=== PATIENT | male | born 1955 | race Caucasian/White ===

== ENCOUNTER 2023-10-18 19:45 | Emergency (ER) | payer MEDICARE, MEDICAID, SELFPAY ==
[2023-10-18 20:00] VITALS: BP 100/50; PULSE 66; RESP 12; TEMP 36.5; O2SAT 92; BMI 25.4
--- NOTE | 2023-10-18 20:02 | ED.GENADULT ---
HPI - General Adult General Chief complaint: GI Bleed Stated complaint: ? blood in stool Time Seen by Provider: 10/18/23 21:06 Source: patient and family Mode of arrival: ambulatory Limitations: no limitations History of Present Illness HPI narrative: 68 yo male with PMH of anemia on Fe, GERD, BPH, hypothyroidism who had covid 3 weeks ago then after started with daily black stools 2 to 3 times a day - does not take thinners or aspirin only tylenol. he has not had GI bleedin past no prior endoscopy. He has never had melena. He has no pain, weakness, dizziness. He is on PPI daily. He states he is not staying and his spouse who is with him agrees. They want to go home and eat. I advised he stay for further workup but they decline. He agrees to rectal exam complaint: melena Onset (ago): week(s) (3) Location: buttocks Radiation: non-radiation Severity: mild Relieving factors: none Exacerbating factors: none Associated symptoms: denies other symptoms Treatments prior to arrival: none Related Data Previous Rx's Medication Instructions Recorded omeprazole 20 mg capsule,delayed 20 mg PO BID #60 caps 10/18/23 release Allergies Allergy/AdvReac Type Severity Reaction Status Date / Time No Known Allergies Allergy Verified 10/18/23 19:59 [No Known Allergies*] Review of Systems Review of Systems: Constitutional : No Fever, No Chills, No Fatigue ENT/Mouth : No sore throat, No Rhinorrhea Eyes: No Eye Pain, No Swelling, No Redness Cardiovascular : No Chest Pain, No SOB, No Dyspnea on Exertion Respiratory : No Cough, No Sputum Gastrointestinal : No Nausea, No Vomiting, No Diarrhea, No abdominal Pain, pos melena Genitourinary : No Dysuria, No Urinary Frequency, No Hematuria, Musculoskeletal : No joint pain, No Myalgias, No Joint Swelling Skin : No Skin Lesions, No rash Neuro : No Weakness, No Numbness, No Dizziness, no Headache Psych : No Anxiety/Panic, No Depression Heme/Lymph: No Bruising, No Bleeding,No Lymphadenopathy Endocrine : No Polyuria, No Polydipsia All other systems reviewed and are negative PMFSH Past Medical History Attestation statement: The following information was validated with the patient. Medical History Anemia BPH (benign prostatic hyperplasia) GERD (gastroesophageal reflux disease) Social History Social History Alcohol intake: never Smoked in Last 30 Days: Yes Use of substances other than those prescribed or required for medical reasons: No Advance Directives: No Advance Directives Information Provided: No Physical Exam ED Vital Signs: Vital Signs - 24 hr 10/18/23 20:00 10/18/23 20:58 Temperature 97.7 F Pulse Rate 66 53 Respiratory Rate 12 18 Blood Pressure 100/50 L 106/62 Pulse Oximetry 92 93 Oxygen Delivery Method Room Air Room Air BMI result Body Mass Index 25.4 Appearance: Alert. Oriented X3. No acute distress. Eyes: Pupils equal, round and reactive to light. ENT: Pharynx normal. Neck: Normal inspection. Neck supple. CVS: Normal heart rate and rhythm. Pulses normal. Respiratory: No respiratory distress. Breath sounds normal. Abdomen: Soft and nontender. Rectal: brown stool Skin: Skin warm and dry. Normal skin color. Normal skin turgor. Extremities: No lower extremity edema. No calf ttp Neuro: Oriented X 3. No motor deficit. No sensory deficit. Course Course Course Narrative: RME performed by Mariola Cardoso PA-C. Patient is a 68 year old assigned male at presenting to the emergency department with blood in his stool. Detailed physical exam and review of systems are deferred to the information security consultant. Labs ordered. Patient placed back in the waiting room pending room availability and results. Medical Decision Making Medical Decision Making [facility] Narrative: 68 yo male with PMH of anemia on Fe, GERD, BPH, hypothyroidism here with black stools at home but no other associated symptoms at this time will obtain labs, occult stool - he is refusing other work up answering questions appropriately he has benign abdominal exam refusing all other work up other than labs and guiac. Will increased PPI and refer to his GI doctor with precautions to return Differential Diagnosis Differential Diagnoses: The differential diagnosis associated with the presentation includes Fe cause, anemia, UGIB, PUD Admission/Observation Consideration of admission/observation: Escalation of care including admission/observation considered patient and spouse refuse Lab Data [facility] Lab Attestation statement: I reviewed the patient's lab results. 10/18/23 20:33 10/18/23 20:33 Labs: Lab Results 10/18/23 10/18/23 Range/Units 20:33 21:30 WBC 4.1 L (4.8-10.8) X10*3/uL RBC 4.05 L (4.60-5.80) X10*6/uL Hgb 12.4 L (14.0-18.0) g/dl Hct 35.2 L (42.0-52.0) % MCV 86.9 (80.0-98.0) fL MCH 30.6 (27.0-33.0) pg MCHC 35.2 (31.0-36.0) g/dl RDW 13.2 (11.0-16.0) % Plt Count 180 (160-400) X10*3/uL MPV 9.7 (9.4-12.4) fL Immature Gran % (Auto) 0.2 (0.0-0.4) % Neut % (Auto) 53.8 (45-73) % Lymph % (Auto) 32.5 (20-40) % Brooke % (Auto) 8.1 (2-11) % Eos % (Auto) 4.9 H (0-4) % Baso % (Auto) 0.5 (0-2) % Lymph # (Auto) 1.3 (1.2-4.9) X10*3/uL Brooke # (Auto) 0.3 (0.1-1.2) X10*3/uL Eos # (Auto) 0.2 (0.0-0.4) X10*3/uL Baso # (Auto) 0.0 (0.0-0.2) X10*3/uL Abs Immat Gran (auto) 0.01 (0.00-0.03) X10*3/uL Absolute Neuts (auto) 2.2 (2.0-8.3) x10*3/uL Absolute Nucleated RBC 0.000 (0.0-0.012) X10*3/uL Nucleated RBC % (auto) 0.0 (0.0-0.2) /100WBC PT 13.3 (11.1-13.3) SEC INR 1.1 (0.9-1.1) APTT 40.1 H (26.0-36.8) SEC Sodium 141 (135-145) mmol/L Potassium 3.5 (3.3-5.1) mmol/L Chloride 105 (96-108) mmol/L Carbon Dioxide 27 (22-29) mmol/L Anion Gap 13 (12-20) BUN 7 L (9-16) mg/dL Creatinine 0.57 (0.5-1.4) mg/dL Estim Creat Clear Calc 133.9 Estimated GFR > 60 Random Glucose 109 (60-115) mg/dL Calcium 9.1 (8.4-10.2) mg/dL Magnesium 2.0 (1.6-2.6) mg/dL Total Bilirubin 0.3 (0.0-1.0) mg/dL AST 13 (5-37) U/L ALT 8 (0-40) U/L Alkaline Phosphatase 85 (39-117) U/L Total Protein 7.0 (6.5-8.0) g/dL Albumin 3.8 (3.5-5.0) g/dL Stool Occult Blood NEGATIVE (NEGATIVE) Independent Historian Clinical information obtained from an independent historian. History obtained from or confirmed by: Spouse External Record Review External record reviewed: Outpatient record Prescription Management I considered prescription management with: Other Discharge Plan Discharge Clinical Impression: Melena Patient Disposition: Home, Self-Care Instructions: Melena (ED) Additional Instructions: your hemoglobin was 12.4 we have no baseline for you. at this time your stools tested negative for blood. it was advised you stay for further work up but you refused. return for dizziness, increased blood, pain, vomiting or any other concerns. NO ASPIRIN, MOTRIN, ALEVE, IBUPROFEN, NAPROSYN TYLENOL IS OKAY CALL YOUR DOCTOR SATURDAY AND YOU NEED ENDOSCOPY THROUGH GI SOON POSSIBLE, INCREASE OMEPRAZOLE TO TWICE A DAY Prescriptions: New omeprazole 20 mg capsule,delayed release(DR/EC) 20 mg PO BID Qty: 60 0RF
--- OUTSIDE RECORDS SUMMARY | 2023-10-18 20:33 | XMS_ITS | Continuity of Care Document ---
Author Name Unknown Organization [facility] Address [address] [place] [address]- Care Team Providers Care Puppy Sitter Name Role Phone Roberto CH, Efra Miramontes Primary Care Physician Encounter [facility] Date(s): 05/24/21 - 06/23/21 [facility] [address] [place] [address]- Allergies, Adverse Reactions, Alerts Substance Reaction Severity Status NKA Active Immunizations Given and Recorded Vaccine Date Status Refusal Reason tetanus/diphtheria/pertussis, acel(Tdap) 05/07/21 Given tetanus/diphtheria/pertussis, acel(Tdap) 1 03/05/11 Given SARS-CoV-2 (COVID-19) mRNA BNT-162b2 vac 12/04/20 Recorded SARS-CoV-2 (COVID-19) mRNA BNT-162b2 vac 11/13/20 Recorded influenza virus vaccine, inactivated 06/21/20 Give n influenza virus vaccine, inactivated 2 07/31/18 Gi raheem influenza virus vaccine, inactivated 07/05/16 Give n influenza virus vaccine, inactivated 3 08/01/15 Re corded influenza virus vaccine, inactivated 05/18/15 Nacho rded influenza virus vaccine, inactivated 4 08/13/12 Gi raheem influenza virus vaccine, inactivated 5 08/16/11 Gi raheem Influenza Virus Vaccine (oldterm) 06/08/19 Recorde d Fluarix (oldterm) 6 08/19/13 Given pneumococcal 23-valent vaccine 7 04/01/12 Given 1Admin Note: VIM 08/03/08 2Result Comment: [07/31/2018] [facility]# [id number] 3Result Comment: [08/26/2015] done at [facility] 4Admin Note: VIM 03/17/12 5Admin Note: VIM 04/10/11 6Admin Note: VIS GIVEN 04/10/13 7Admin Note: vis given dated 06/21/09 Medications donepezil 5 mg oral tablet 5 mg, 1, tablet, By Mouth, Daily, # 30 tablet, Refills 5, Tot. Refills 5, Maintenance, 06/02/21 14:20:00 EDT, Route to Pharmacy Electronically, [id number], Partial fill upon patient request if the prescription is for a schedule II opioid drug.... Start Date: 06/02/21 Status: Ordered fluticasone 50 mcg/inh nasal spray 2 sprays, Nares, Both, Daily, # 16 Gm, 5 Refills, Maintenance, 12/15/20 12:56:00 EDT, [place], [id number], Partial fill upon patient request if the prescription is for a schedule II opioid drug., 2 sprays Nares, Both Daily, 183, cm, 12/15/20 11:... Start Date: 12/15/20 Status: Ordered gabapentin 300 mg oral capsule 300 mg, 1, capsule, By Mouth, 2 times a day, # 60 capsule, Refills 5, Tot. Refills 5, Maintenance, 10/27/20 10:24:00 EST, Route to Pharmacy Electronically, [id number], Partial fill upon patient request if the prescription is for a schedule II... Start Date: 10/27/20 Status: Ordered Lantus Inj 0.1 mL = 10 units, Subcutaneous Injection, Daily at bedtime, 0 Refills, Maintenance, 05/09/21 9:03:00 EDT, In[place], Partial fill upon patient request if the prescription is for a schedule II opioiddrug. Start Date: 05/09/21 Status: Ordered levothyroxine 0.112 mg oral tablet 2 tablet = 224 mcg, By Mouth, Daily, # 60 tablet, 5 Refills, Maintenance, 10/27/20 10:22:00 EST, Tablet, [id number], 183, cm, 10/27/20 8:41:00 EST, Height, 119, kg, 09/23/20 17:06:00 EST, DryWeight Start Date: 10/27/20 Stop Date: 04/25/21 Status: Ordered Lidoderm 5% film 1 patch, Topically, Daily, # 30 patch, 0 Refills, Maintenance, 04/03/21 9:04:00 EDT, [facility]/pharmacy #[id number], Partial fill upon patient request if the prescription is for a schedule II opioid drug., 1 patch Topically Daily, 180, cm, 04/03/21 7:30:00 EDT, H... Start Date: 04/03/21 Status: Ordered lisinopril 20 mg oral tablet 20 mg, 1, tablet, By Mouth, Daily, # 30 tablet, Refills 0, Tot. Refills 0, Maintenance, 05/09/21 9:00:00 EDT, Route to Pharmacy Electronically, [facility]/pharmacy #[id number], Partial fill upon patient request if the prescription is for a schedule II opioid drug.... Start Date: 05/09/21 Status: Ordered nystatin topical [id number] u/gm powder See Instructions, apply to stump daily, # 30 Gm, 5 Refills, Maintenance, 12/15/20 12:56:00 EDT, Powder, [facility]/pharmacy #[id number], Partial fill upon patient request if the prescription is for a schedule II opioid drug., apply to stump daily, 183, cm, ... Start Date: 12/15/20 Status: Ordered omeprazole 20 mg oral enteric coated capsule 1 capsule = 20 mg, By Mouth, Daily, # 30 capsule, 5 Refills, Maintenance, 10/27/20 10:22:00 EST, ECCapsule, [facility]/pharmacy #[id number], 183, cm, 10/27/20 8:41:00 EST, Height, 119, kg, 09/23/20 17:06:00 EST,Dry Weight Start Date: 10/27/20 Status: Ordered Probiotic Formula By Mouth, Daily, 0 Refills, Maintenance, 01/19/21 15:29:00 EDT, Partial fill upon patient request if the prescription is for a schedule II opioid drug. Start Date: 01/19/21 Status: Ordered traZODone 50 mg oral tablet 50 mg, 1, tablet, By Mouth, 2 times a day, Refills 0, Maintenance, 01/19/21 15:28:00 EDT, Partial fill upon patient request if the prescription is for a schedule II opioid drug. Start Date: 01/19/21 Status: Ordered Trulicity Pen 1.5 mg/0.5 mL subcutaneous solution 0.5 mL = 1.5 mg, Subcutaneous Injection, Every week, # 2.5 mL, 0 Refills, Maintenance, 06/21/21 8:48:00 EDT, [place], [id number], Partial fill upon patient request if the prescription is fora schedule II opioid drug., 180, cm, 04/03/21 7:30:... Start Date: 06/21/21 Status: Ordered Problem List Condition Effective Dates Status Health Status Inform ant Diabetes mellitus type 2(Confirmed) Active Diabetic nephropathy(Confirmed) Active Dysphagia(Confirmed) Active Former smoker(Confirmed) Active Generalized anxiety disorder(Confirmed) Active Hypertension(Confirmed) Active Hypogonadism(Confirmed) 2010 Active Hypothyroidism(Confirmed) Active Urinary frequency(Confirmed) Active Local infection of wound(Confirmed) Active Moderate recurrent major depression(Confirmed) Active Hx of right BKA(Confirmed) Active Opioid dependence(Confirmed) Active Opioid dependence on agonist therapy(Confirmed) Active Osteoarthritis of right [place] ohumeral joint(Confirmed) 2 05/29/17 Active 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 2seen by ortho 10/04 and 01/02 Social History Social History Type Response Tobacco Other: 3 cigars brenden y. Sex Male
--- OUTSIDE RECORDS SUMMARY | 2023-10-18 20:33 | XMS_ITS | Continuity of Care Document ---
Author Name Unknown Organization [facility] Address [address] [place] [address]- Care Team Providers Care Layer Up Name Role Phone Roberto CH, Efra Miramontes Primary Care Physician Encounter [facility] Date(s): 12/06/22 - 01/05/23 [facility] [address] [place] [address]- Attending Physician: Bobby Sandoval Admitting Physician: AdmBobby mckeon Referring Physician: AdmtrBobby Allergies, Adverse Reactions, Alerts No Known Allergies Immunizations Given and Recorded Vaccine Date Status Refusal Reason influenza virus vaccine, inactivated 1 07/06/21 Gi raheem influenza virus vaccine, inactivated 06/21/20 Give n influenza virus vaccine, inactivated 2 07/31/18 Gi raheem influenza virus vaccine, inactivated 07/05/16 Give n influenza virus vaccine, inactivated 3 08/01/15 Re corded influenza virus vaccine, inactivated 05/18/15 Nacho rded influenza virus vaccine, inactivated 4 08/13/12 Gi raheem influenza virus vaccine, inactivated 5 08/16/11 Gi raheem zoster vaccine, inactivated 06/11/21 Recorded SARS-CoV-2 (COVID-19) mRNA BNT-162b2 vac 06/11/21 Recorded SARS-CoV-2 (COVID-19) mRNA BNT-162b2 vac 12/04/20 Recorded SARS-CoV-2 (COVID-19) mRNA BNT-162b2 vac 11/13/20 Recorded tetanus/diphtheria/pertussis, acel(Tdap) 05/07/21 Given tetanus/diphtheria/pertussis, acel(Tdap) 6 03/05/11 Given Influenza Virus Vaccine (oldterm) 06/08/19 Recorde d Fluarix (oldterm) 7 08/19/13 Given pneumococcal 23-valent vaccine 8 04/01/12 Given 1Result Comment: [facility]#[id number] 2Result Comment: [07/31/2018] [facility]# [id number] 3Result Comment: [08/26/2015] done at [email or web address] [facility] 4Admin Note: VIM 03/17/12 5Admin Note: VIM 04/10/11 6Admin Note: VIM 08/03/08 7Admin Note: VIS GIVEN 04/10/13 8Admin Note: vis given dated 06/21/09 Medications ARIPiprazole 5 mg oral tablet 5 mg, 1, tablet, By Mouth, Daily, # 90 tablet, Refills 1, Tot. Refills 1, Maintenance, 09/28/22 8:16:00 EST, Route to Pharmacy Electronically, [facility]/pharmacy #[id number], Partial fill upon patient request ifthe prescription is for a schedule II opioid drug.,... Start Date: 09/28/22 Stop Date: 03/27/23 Status: Ordered citalopram 40 mg oral tablet 40 mg, 1, tablet, By Mouth, Daily, Take with food., # 90 tablet, Refills 1, Tot. Refills 1, Maintenance, 09/28/22 8:16:00 EST, Route to Pharmacy Electronically, [facility]/pharmacy #[id number], 181.5, cm, 08/30/22 16:11:00 EST, Height, 105, kg, 09/26/21 3:23:00 ES... Start Date: 09/28/22 Stop Date: 03/27/23 Status: Ordered donepezil 10 mg oral tablet 10 mg, 1, tablet, By Mouth, Daily at bedtime, # 90 tablet, Refills 2, Tot. Refills 2, Maintenance, 10/11/22 12:01:00 EST, Route to Pharmacy Electronically, [facility]/pharmacy #[id number], Partial fill upon patient request if the prescription is for a schedule II... Start Date: 10/11/22 Stop Date: 07/08/23 Status: Ordered ferrous sulfate 325 mg oral enteric coated tablet 325 mg, By Mouth, Daily, Refills 3, Maintenance, 07/19/21 10:08:00 EDT, Partial fill upon patient request if the prescription is for a schedule II opioid drug. Start Date: 07/19/21 Status: Ordered fluticasone 50 mcg/inh nasal spray 2 sprays, Nares, Both, Daily in AM, 0 Refills, Maintenance, 07/14/21 14:22:00 EDT, [place], Partial fill upon patient request if the prescription is for a schedule II opioid drug. Start Date: 07/14/21 Status: Ordered folic acid 1 mg oral tablet 1 mg, 1, tablet, By Mouth, Daily, # 30 tablet, Refills 0, Maintenance, 07/13/21 22:11:00 EDT, Partial fill upon patient request if the prescription is for a schedule II opioid drug. Start Date: 07/13/21 Status: Ordered gabapentin 400 mg oral capsule 400 mg, 1, capsule, By Mouth, 2 times a day, # 60 capsule, Refills 1, Tot. Refills 1, Maintenance, 12/23/22 8:36:00 EDT, Route to Pharmacy Electronically, [facility]/pharmacy #[id number], Partial fill upon patient request if the prescription is for a schedule II o... Start Date: 12/23/22 Status: Ordered levothyroxine 0.112 mg oral tablet 2 tablet = 224 mcg, By Mouth, Daily, # 60 tablet, 2 Refills, Maintenance, 12/19/22 16:00:00 EDT, Tablet, [facility]/pharmacy #[id number], 181.5, cm, 10/26/22 11:39:00 EST, Height, 103, kg, 10/26/22 11:39:00 EST, Dry Weight Start Date: 12/19/22 Stop Date: 03/19/23 Status: Ordered melatonin 5 mg oral tablet 1 tablet = 5 mg, By Mouth, Daily at bedtime, PRN for insomnia, # 60 tablet, 0 Refills, Maintenance,07/13/21 22:12:00 EDT, Tablet, Partial fill upon patient request if the prescription is for a schedule II opioid drug. Start Date: 07/13/21 Status: Ordered nystatin topical [id number] u/gm powder See Instructions, apply to stump 3 x day, # 120 Gm, 5 Refills, Maintenance, 07/06/21 12:35:00 EDT, Powder, [facility]/pharmacy #[id number], Partial fill upon patient request if the prescription is for a schedule II opioid drug., apply to stump 3 x day, 180, cm,... Start Date: 07/06/21 Status: Ordered omeprazole 20 mg oral enteric coated capsule 1 capsule = 20 mg, By Mouth, Daily, # 30 capsule, 0 Refills, Maintenance, 12/19/22 16:00:00 EDT, ECCapsule, [id number], 181.5, cm, 10/26/22 11:39:00 EST, Height, 103, kg, 10/26/22 11:39:00 EST, Dry Weight Start Date: 12/19/22 Status: Ordered prazosin 2 mg oral capsule 2 capsule = 4 mg, By Mouth, Daily at bedtime, dose increase, # 180 capsule, 1 Refills, Maintenance,09/28/22 8:17:00 EST, Capsule, [id number], Partial fill upon patient request if the prescription is for a schedule II opioid drug., 181.5, cm,... Start Date: 09/28/22 Stop Date: 03/27/23 Status: Ordered ramelteon 8 mg oral tablet 1 tablet = 8 mg, By Mouth, Daily at bedtime, # 90 tablet, 1 Refills, Maintenance, 09/28/22 8:16:00 EST, Tablet, [id number], Partial fill upon patient request if the prescription is for a schedule II opioid drug., 181.5, cm, 08/30/22 16:11:00 E... Start Date: 09/28/22 Stop Date: 03/27/23 Status: Ordered Readi-Cat 2 oral suspension 450 mL = 9 Gm, By Mouth, 2 times a day, Please dispense two 450 mL bottles for a total dose that equals 900 mLs. Drink first bottle [address] and then drink second bottle [address] scan,# 2 each, 0 Refills, Maintenance, 10/26/22 12:01:00... Start Date: 10/26/22 Status: Ordered Suboxone 8 mg-2 mg Sublingual Film See Instructions, 1.5 films sublingual in AM, 1 film sublingual in PM [id number], # 75 film, 1 Refills, Maintenance, 12/18/22 8:06:00 EDT, [id number], 1.5 films sublingual in AM, 1 film sublingual in PM ; [id number], 181.5, cm, 10/26/22 11:39:... Start Date: 12/18/22 Status: Ordered tamsulosin 0.4 mg oral capsule 0.4 mg, 1, capsule, By Mouth, Daily, # 90 capsule, Refills 3, Tot. Refills 3, Maintenance, 12/20/2315:00:00 EDT, Route to Pharmacy Electronically, [facility]/pharmacy #[id number], Partial fill upon patient request if the prescription is for a schedule II opioid d... Start Date: 12/19/22 Status: Ordered Problem List Condition Confirmation Course Effective Dates Status H ealth Status Informant Alzheimer's dementia Confirmed Active Diabetes mellitus type 2 Confirmed Active Diabetic nephropathy Confirmed Active Dysphagia Confirmed Active Generalized anxiety disorder Confirmed Active Hypertension Confirmed Active Hypogonadism 1 Confirmed 2010 Active Hypothyroidism Confirmed Active Urinary frequency Confirmed Active Local infection of wound Confirmed Active Moderate recurrent major depression Confirmed Active Hx of right BKA Confirmed Active Obese class I Confirmed Active Opioid dependence Confirmed Active Opioid dependence on agonist therapy Confirmed Active Osteoarthritis of right glenohumeral joint 2 Confirmed 05/29/17 Active Pain in right leg, nonunion of ankle fusion Confirmed Active Seborrheic dermatitis Confirmed Active Tobacco dependence Confirmed Active 1Dx'd while on chronic opiate tx. 2seen by ortho 10/04 and 01/02 Social History Social History Type Response Tobacco Other: 3 cigars brenden y. Sex EKG study * Event Display: EKG Authored Date: * Event Display: EKG Authored Date: * Event Display: EKG Authored Date: Note * Event Display: Non [facility] Lab Results Authored Date: * Event Display: Non [facility] Lab Results Authored Date: * Event Display: CT Scan Shoulder, Non- [facility] Authored Date: * Event Display: Non [facility] Lab Results Authored Date: * Event Display: CT Scan Shoulder Authored Date: * Event Display: CT Scan Shoulder Authored Date: * Event Display: CT Scan Knee Authored Date: Patient Care team information Care Team Personnel Name: Alka Lee RN Position: [facility] RN Member Role: Primary Care Nurse Name: Jaleel Lo RN Position: [facility] RN Member Role: Primary Care Nurse Name: Ivy Smith RN Position: [facility] RN Member Role: Primary Care Nurse Name: Efra Mejia MD Position: [facility] Primary Care Physician Member Role: PCP Address: Address: [address] [place] [id number] Name: Devorah Johnson RN Position: [facility] RN Member Role: Primary Care Nurse Name: Dustin Chavez RN Position: [facility] RN Member Role: Primary Care Nurse Name: Litzy Weinberg RN Position: [facility] RN Member Role: Primary Care Nurse Name: Melanie Garay Position: [facility] RN Member Role: Primary Care Nurse Name: Michelle Buckley Position: [facility] RN Member Role: Primary Care Nurse Name: Saundra Gonzalez Position: [facility] RN Member Role: Primary Care Nurse Name: Sofía Moreno RN Position: [facility] RN Member Role: Primary Care Nurse Name: Sary Tong RN Position: [facility] RN Member Role: Primary Care Nurse Name: Sophia Lomas RN Position: [facility] RN Member Role: Primary Care Nurse Name: Danielito Woo RN Position: [facility] Finger Lift Operator Member Role: Primary Care Nurse Care Team Related Persons Name: TINY STEPHENS Address: home [address], [place] Name: FERNIE CUMMINS Address: [address] [place] [place], [place] Name: CUMMINSBEANTINY Address: home [address], [place]
--- OUTSIDE RECORDS SUMMARY | 2023-10-18 20:34 | XMS_ITS | Continuity of Care Document ---
Author Name Unknown Organization [facility] Address [address] [place] [id number]- Care Team Providers Care Video Specialist Name Role Phone Roberto CH, Efra Miramontes Primary Care Physician [place] [facility] [place] - 07/26/23 [facility] [address] [place] [id number] Attending Physician: Juve Lopez MD Admitting Physician: Juve oLpez MD Allergies, Adverse Reactions, Alerts No Known Allergies Immunizations Given and Recorded Vaccine Date Status Refusal Reason influenza virus vaccine, inactivated 07/11/23 Give n influenza virus vaccine, inactivated 1 07/06/21 Gi raheem influenza virus vaccine, inactivated 06/21/20 Give n influenza virus vaccine, inactivated 2 07/31/18 Gi raheem influenza virus vaccine, inactivated 07/05/16 Give n influenza virus vaccine, inactivated 3 08/01/15 Re corded influenza virus vaccine, inactivated 05/18/15 Nacho rded influenza virus vaccine, inactivated 4 08/13/12 Gi raheem influenza virus vaccine, inactivated 5 08/16/11 Gi raheem SARS-CoV-2 mRNA ([id number]) vax 04/27/22 Recorded zoster vaccine, inactivated 06/11/21 Recorded SARS-CoV-2 (COVID-19) mRNA BNT-162b2 vac 06/11/21 Recorded SARS-CoV-2 (COVID-19) mRNA BNT-162b2 vac 12/04/20 Recorded SARS-CoV-2 (COVID-19) mRNA BNT-162b2 vac 11/13/20 Recorded tetanus/diphtheria/pertussis, acel(Tdap) 05/07/21 Given tetanus/diphtheria/pertussis, acel(Tdap) 6 03/05/11 Given Influenza Virus Vaccine (oldterm) 06/08/19 Recorde d Fluarix (oldterm) 7 08/19/13 Given pneumococcal 23-valent vaccine 8 04/01/12 Given 1Result Comment: [facility]#[id number] 2Result Comment: [07/31/2018] [facility]# [id number] 3Result Comment: [08/26/2015] done at [facility] 4Admin Note: VIM 03/17/12 5Admin Note: VIM 04/10/11 6Admin Note: VIM 08/03/08 7Admin Note: VIS GIVEN 04/10/13 8Admin Note: vis given dated 06/21/09 Medications ARIPiprazole 5 mg oral tablet 5 mg, 1, tablet, By Mouth, Daily, # 90 tablet, Refills 1, Tot. Refills 1, Maintenance, 03/01/23 10:12:00 EDT, Route to Pharmacy Electronically, [facility]/pharmacy #[id number], Partial fill upon patient request if the prescription is for a schedule II opioid drug.... Start Date: 03/01/23 Stop Date: 08/28/23 Status: Ordered Boost or equivalent protein shake Boost or equivalent protein shake, See Instructions, # 28 each, Refills 3, Tot. Refills 3, Maintenance, twice daily for weight loss / malnutrition, 07/11/23 12:56:00 EDT, Supply, 181.5, cm, 07/11/23 11:00:00 EDT, Height, 103, kg, 10/26/22 11:39:00 EST... Start Date: 07/11/23 Status: Ordered ciclopirox 0.77% topical cream See Instructions, Apply thin layer to rash twice per day. Rub in well, # 90 Gm, 0 Refills, Acute 08/03/23 9:00:00 EST, 07/03/23 11:29:00 EDT, Cream, [facility]/pharmacy #[id number], Partial fill upon patient request if the prescription is for a schedule II opioid... Start Date: 07/03/23 Stop Date: 08/03/23 Status: Ordered citalopram 40 mg oral tablet 40 mg, 1, tablet, By Mouth, Daily, Take with food., # 90 tablet, Refills 1, Tot. Refills 1, Maintenance, 06/25/23 10:14:00 EDT, Route to Pharmacy Electronically, [facility]/pharmacy #[id number], 181.5, cm, 06/06/23 16:27:00 EDT, Height, 103, kg, 10/26/22 11:39:00... Start Date: 06/25/23 Stop Date: 12/22/23 Status: Ordered donepezil 10 mg oral tablet 1, tablet, By Mouth, Daily at bedtime, # 90 tablet, Refills 2, Maintenance, 07/26/23 16:19:00 EST, Route to Pharmacy Electronically, [facility] STORE [id number], 181.5, cm, 07/11/23 11:00:00 EDT, Height, 103, kg, 10/26/22 11:39:00 EST, Dry Weight Start Date: 07/26/23 Status: Ordered famotidine 40 mg oral tablet 1 tablet = 40 mg, By Mouth, Daily at bedtime, # 30 tablet, 0 Refills, Maintenance, 07/11/23 13:01:00 EDT, Tablet, [facility]/pharmacy #[id number], Partial fill upon patient request if the prescription is for a schedule II opioid drug., 181.5, cm, 07/11/23 11:00:00... Start Date: 07/11/23 Status: Ordered ferrous sulfate 325 mg oral enteric coated tablet 325 mg, By Mouth, Daily, Refills 3, Maintenance, 07/19/21 10:08:00 EDT, Partial fill upon patient request if the prescription is for a schedule II opioid drug. Start Date: 07/19/21 Status: Ordered fluticasone 50 mcg/inh nasal spray 2 sprays, Nares, Both, Daily, # 16 Gm, 0 Refills, Maintenance, 07/11/23 13:02:00 EDT, [place], [facility]/pharmacy #[id number], Partial fill upon patient request if the prescription is for a schedule II opioid drug., 2 sprays Nares, Both Daily, 181.5, cm, 07/11/23 1... Start Date: 07/11/23 Status: Ordered fluticasone 50 mcg/inh nasal spray 2 sprays, Nares, Both, Daily in AM, 0 Refills, Maintenance, 07/14/21 14:22:00 EDT, [place], Partial fill upon patient request if the [...] capsule, Refills 5, Tot. Refills 5, Maintenance, 03/27/23 17:30:00 EDT, Route to Pharmacy Electronically, [facility]/pharmacy #[id number], override needed for lost prescription, thanks., 181.5, cm, 03/07/23 10:11:0... Start Date: 03/27/23 Status: Ordered levothyroxine 0.112 mg oral tablet 2 tablet = 224 mcg, By Mouth, Daily, for 30 days, # 60 tablet, 0 Refills, Hard Stop 08/09/23 12:54:00 EST, 07/10/23 12:54:00 EDT, Tablet, [facility]/pharmacy #[id number], 181.5, cm, 06/06/23 16:27:00 EDT, Height,103, kg, 10/26/22 11:39:00 EST, Dry Weight Start Date: 07/10/23 Stop Date: 08/09/23 Status: Ordered levothyroxine 0.2 mg oral tablet 1 tablet = 200 mcg, By Mouth, Daily, # 30 tablet, 5 Refills, Maintenance, 07/14/23 18:02:00 EDT, Tablet, [facility]/pharmacy #[id number], dose reduction, 181.5, cm, 07/11/23 11:00:00 EDT, Height, 103, kg, 10/26/22 11:39:00 EST, Dry Weight Start Date: 07/14/23 Status: Ordered melatonin 5 mg oral tablet 1 tablet = 5 mg, By Mouth, Daily at bedtime, PRN for insomnia, # 60 tablet, 0 Refills, Maintenance,07/13/21 22:12:00 EDT, Tablet, Partial fill upon patient request if the prescription is for a schedule II opioid drug. Start Date: 07/13/21 Status: Ordered nystatin topical 224110 u/gm powder See Instructions, apply to stump 3 x day, # 120 Gm, 5 Refills, Maintenance, 04/23/23 15:43:00 EDT, Powder, [facility]/pharmacy #[id number], Partial fill upon patient request if the prescription is for a schedule II opioid drug., apply to stump 3 x day, 181.5, cm... Start Date: 04/23/23 Status: Ordered nystatin topical 653559 u/gm powder See Instructions, apply to stump 3 x day, # 120 Gm, 5 Refills, Maintenance, 07/06/21 12:35:00 EDT, Powder, [facility]acy [id number], Partial fill upon patient request if the prescription is for a schedule II opioid drug., apply to stump 3 x day, 180, cm,... Start Date: 07/06/21 Status: Ordered omeprazole 20 mg oral enteric coated capsule 1 capsule = 20 mg, By Mouth, Daily, # 30 capsule, 5 Refills, Maintenance, 01/30/23 13:42:00 EDT, ECCapsule, [facility]pharmacy [id number], 181.5, cm, 10/26/22 11:39:00 EST, Height, 103, kg, 10/26/22 11:39:00 EST, Dry Weight Start Date: 01/30/23 Status: Ordered prazosin 2 mg oral capsule 1 capsule = 2 mg, By Mouth, Daily at bedtime, dose reduction, # 90 capsule, 1 Refills, Maintenance,06/25/23 10:14:00 EDT, Caps[place], [facility]acy [id number], Partial fill upon patient request if the prescription is for a schedule II opioid drug., 181.5, cm,... Start Date: 06/25/23 Stop Date: 12/22/23 Status: Ordered ramelteon 8 mg oral tablet 1 tablet = 8 mg, By Mouth, Daily at bedtime, # 90 tablet, 1 Refills, Maintenance, 06/25/23 10:14:00EDT, Tablet, [id number], Partial fill upon patient request if the prescription is for a schedule II opioid drug., 181.5, cm, 06/06/23 16:27:00... Start Date: 06/25/23 Stop Date: 12/22/23 Status: Ordered Readi-Cat 2 oral suspension 450 [...] sublingual in AM, 1 film sublingual in PM, # 75 film, 0 Refills, Maintenance, 06/25/23 10:13:00 EDT, [facility]/pharmacy #[id number], [id number], 1.5 films sublingual in AM, 1 film sublingual in PM, 181.5, cm, 06/06/23 16:27:00 EDT, [place]... Start Date: 06/25/23 Status: Ordered tamsulosin 0.4 mg oral capsule 0.4 mg, 1, capsule, By Mouth, Daily, # 90 capsule, Refills 3, Tot. Refills 3, Maintenance, 12/20/2315:00:00 EDT, Route to Pharmacy Electronically, [facility]/pharmacy #[id number], Partial fill upon patient request if [...] Active Hx of right BKA Confirmed Active Opioid dependence Confirmed Active Opioid dependence on agonist therapy Confirmed Active Osteoarthritis of right glenohumeral joint 2 Confirmed 05/29/17 Active Pain in right leg, nonunion of ankle fusion Confirmed Active Parkinson's disease (disorder) Confirmed Active Seborrheic dermatitis Confirmed Active Secondary parkinsonism (disorder) Confirmed Active Tobacco dependence Confirmed Active 1Dx'd while on chronic opiate tx. 2seen by ortho 10/04 and 01/02 Social History Social History Type Response Tobacco Other: does not smok e cigarettes but vapes. Sex Patient Care team information Care Team Personnel Name: .Ted CHA, Cayla Wong: [facility] ED RN W/OE and Tasks Member Role: Primary Care Nurse Name: Alka Lee RN Position: [facility] SN RN Member Role: Primary Care Nurse Name: Jaleel Lo RN Position: [facility] RN Member Role: Primary Care Nurse Name: Ivy Smith RN Position: [facility] RN Member Role: Primary Care Nurse Name: Efra Mejia MD Position: [facility] Physician - Primary Care Member Role: PCP Address: Address: [address] [place] [id number] Name: Devorah Johnson RN Position: [facility] RN Member Role: Primary Care Nurse Name: Dustin Chavez RN Position: [facility] RN Member Role: Primary Care Nurse Name: Litzy Weinberg RN Position: [facility] RN Member Role: Primary Care Nurse Name: Melanie Garay Position: [facility] RN Member Role: Primary Care Nurse Name: Yoselyn Patrick RN Position: [facility] RN Member Role: Primary Care Nurse Name: Michelle Akbar [place] Position: [facility] RN Member Role: Primary Care Nurse Name: Saundra Gonzalez Position: [facility] RN Member Role: Primary Care Nurse Name: Sofía Moreno RN Position: [facility] RN Member Role: Primary Care Nurse Name: Sary Tong RN Position: [facility] RN Member Role: Primary Care Nurse Name: Danielito Woo RN Position: [facility] Hospital Sieve Grader Tender Member Role: Primary Care Nurse Care Team Related Persons Name: TINY STEPHENS Address: home [address] [place], [place] Name: FERNIE CUMMINS Address: home [address], [place] Name: TINY CUMMINS Address: home [address], [place]
--- OUTSIDE RECORDS SUMMARY | 2023-10-18 20:34 | XMS_ITS | Continuity of Care Document ---
Author Name Unknown Organization [facility] Address [address] [place] [address]- Care Team Providers Care Landscape Maintenance Internship Name Role Phone Roberto CH, Efra Miramontes Primary Care Physician [phone] [place] [facility] [place] [facility] [address] [place] [address]- Attending Physician: Admlinda, Bobby Admitting Physician: AdmtrBobby Referring Physician: Admtr, Ar8 Allergies, Adverse Reactions, Alerts Substance Reaction Severity [...] 1Admin Note: VIM 08/03/08 2Result Comment: [07/31/2018] [facility]# [id number] 3Result Comment: [08/26/2015] [facility] 4Admin Note: VIM 03/17/12 5Admin Note: VIM [...] Gm, 5 Refills, Maintenance, 12/15/20 12:56:00 EDT, [place], [id number], Partial fill upon patient request [...] patch, 0 Refills, Maintenance, 04/03/21 9:04:00 EDT, [facility]/pharmacy #[id number], Partial fill upon patient request if the prescription is for a schedule II opioid drug., 1 patch Topically Daily, 180, cm, 04/03/21 7:30:00 EDT, H... Start Date: 04/03/21 Status: Ordered lisinopril 20 mg oral tablet 20 mg, 1, tablet, By Mouth, Daily, # 30 tablet, Refills 0, Tot. Refills 0, Maintenance, 05/09/21 9:00:00 EDT, Route to Pharmacy Electronically, [facility]/pharmacy #[id number], Partial fill upon patient request if the prescription is for a schedule II opioid drug.... Start Date: 05/09/21 Status: Ordered nystatin topical 606277 u/gm powder See Instructions, apply to stump daily, # 30 Gm, 5 Refills, Maintenance, 12/15/20 12:56:00 EDT, Powder, [facility]/pharmacy #[id number], Partial fill upon patient request if the prescription is for a schedule II opioid drug., apply to stump daily, 183, cm, ... Start Date: 12/15/20 Status: Ordered omeprazole 20 mg oral enteric coated capsule 1 capsule = 20 mg, By Mouth, Daily, # 30 capsule, 5 Refills, Maintenance, 10/27/20 10:22:00 EST, ECCapsule, [facility]/pharmacy #[id number], 183, cm, 10/27/20 8:41:00 EST, Height, [...] Subcutaneous Injection, Every week, # 2.5 mL, 5 Refills, Maintenance, 12/15/20 12:38:00 EDT, Solution, [facility]/pharmacy #[id number], Partial fill upon patient request if the prescription is for a schedule II opioid drug., 183, cm, 12/15/20 11:2... Start Date: 12/15/20 Status: Ordered Problem List Condition Effective Dates [...]
--- OUTSIDE RECORDS SUMMARY | 2023-10-18 20:34 | XMS_ITS | Continuity of Care Document ---
Author Name Unknown Organization [facility] Address [address] [place] [address]- Care Team Providers Care Principal Archaeologist Name Role Phone Roberto CH, Efra Miramontes Primary Care Physician Encounter [facility] Date(s): 04/04/22 - 05/04/22 [facility] [address] [place], [place] [address] Allergies, Adverse Reactions, Alerts No Known Allergies [...] 23-valent vaccine 8 04/01/12 Given 1Result Comment: [facility]#[id number] 2Result Comment: [07/31/2018] [facility]# [id number] 3Result Comment: [08/26/2015] done at [facility] 4Admin Note: VIM 03/17/12 5Admin Note: VIM 04/10/11 6Admin Note: VIM 08/03/08 7Admin Note: VIS GIVEN 04/10/13 8Admin Note: vis given dated 06/21/09 Medications donepezil 5 mg oral tablet 1, tablet, By Mouth, Daily, # 90 tablet, Refills 1, Route to Pharmacy Electronically, [facility] STORE [id number], 181.5, cm, 09/28/21 12:39:00 EST, Height, 105, kg, 09/26/21 3:23:00 EST, Dry Weight Start Date: 11/13/21 Status: Ordered ferrous sulfate 325 mg oral enteric coated tablet 325 mg, By Mouth, Daily, Refills 3, Maintenance, 07/19/21 10:08:00 EDT, Partial fill upon patient request if the prescription is for a schedule II opioid drug. Start Date: 07/19/21 Status: Ordered fluticasone 50 mcg/inh nasal spray 2 sprays, Nares, Both, Daily in AM, 0 Refills, Maintenance, 07/14/21 14:22:00 EDT, [place], Partial fill upon patient request if the [...] times a day, # 60 capsule, Refills 2, Tot. Refills 2, Maintenance, 03/22/22 15:36:00 EDT, Route to Pharmacy Electronically, [facility]/pharmacy #[id number], Partial fill upon patient request if the prescription is for a schedule II... Start Date: 03/22/22 Status: Ordered Iodosorb 0.9% topical gel See Instructions, Continue wound care with iodosorb gel and 2x2 dressing daily to small wound Betadine pain to incision, # 1 each, 0 Refills, Maintenance, 09/28/21 18:43:00 EST, [facility]/pharmacy #[id number], Partial fill upon patient request if the prescripti... Start Date: 09/28/21 Status: Ordered levothyroxine 0.112 mg oral tablet 2 tablet = 224 mcg, By Mouth, Daily, # 60 tablet, 2 Refills, Maintenance, 03/22/22 13:10:00 EDT, Tablet, [facility]/pharmacy #[id number], 181.5, cm, 09/28/21 12:39:00 EST, Height, 105, kg, 09/26/21 3:23:00 EST, Dry Weight Start Date: 03/22/22 Stop Date: 06/20/22 Status: Ordered melatonin 5 mg oral tablet 1 tablet = 5 mg, By Mouth, Daily at bedtime, PRN for insomnia, # 60 tablet, 0 Refills, Maintenance,07/13/21 22:12:00 EDT, Tablet, Partial fill upon patient request if the prescription is for a schedule II opioid drug. Start Date: 07/13/21 Status: Ordered nystatin topical 960362 u/gm powder See Instructions, apply to stump 3 x day, # 120 Gm, 5 Refills, Maintenance, 07/06/21 12:35:00 EDT, Powder, [facility]/pharmacy #[id number], Partial fill upon patient request if the prescription is for a schedule II opioid drug., apply to stump 3 x day, 180, cm,... Start Date: 07/06/21 Status: Ordered omeprazole 20 mg oral enteric coated capsule 1 capsule = 20 mg, By Mouth, Daily, # 30 capsule, 2 Refills, Maintenance, 03/22/22 13:10:00 EDT, ECCapsule, [facility]/pharmacy #[id number], 181.5, cm, 09/28/21 12:39:00 EST, Height, 105, kg, 09/26/21 3:23:00 EST, Dry Weight Start Date: 03/22/22 Status: Ordered tamsulosin 0.4 mg oral capsule 0.4 mg, 1, capsule, By Mouth, Daily, # 90 capsule, Refills 3, Tot. Refills 3, Maintenance, 07/06/2111:55:00 EDT, Route to Pharmacy Electronically, [facility]/pharmacy #[id number], Partial fill upon patient request if the prescription is for a schedule II opioid d... Start Date: 07/06/21 Status: Ordered Trulicity Pen 0.75 mg/0.5 mL subcutaneous solution 0.5 mL = 0.75 mg, Subcutaneous Injection, Every week, rotate injection sites, # 2 mL, 5 Refills, Maintenance, 10/05/21 11:20:00 EST, Solution, [facility]/pharmacy #[id number], Partial fill upon patient request ifthe prescription is for a schedule II opioid drug.,... Start Date: 10/05/21 Status: Ordered Problem List Condition Effective Dates Status Health Status Inform ant Alzheimer's dementia(Confirmed) Active Diabetes mellitus type 2(Confirmed) Active Diabetic nephropathy(Confirmed) Active Dysphagia(Confirmed) Active Generalized anxiety disorder(Confirmed) Active Hypertension(Confirmed) Active Hypogonadism(Confirmed) 2010 Active Hypothyroidism(Confirmed) Active Urinary frequency(Confirmed) Active Local infection of wound(Confirmed) Active Moderate recurrent major depression(Confirmed) Active Hx of right BKA(Confirmed) Active Opioid dependence(Confirmed) Active Opioid dependence on agonist therapy(Confirmed) Active Osteoarthritis of right [place] ohumeral joint(Confirmed) 2 05/29/17 Active Pain in right leg, nonunion of ankle fusion(Confirmed) Active Seborrheic dermatitis(Confirmed) Active Severe obesity(Confirmed) Active Tobacco dependence(Confirmed) Active 1Dx'd while on chronic opiate tx. 2seen by ortho 10/04 and 01/02 Social History Social History Type Response Tobacco Other: 3 cigars brenden y. Sex
--- OUTSIDE RECORDS SUMMARY | 2023-10-18 20:34 | XMS_ITS | Continuity of Care Document ---
Author Name Unknown Organization [facility] Address [address] [place] [address]- Care Team Providers Care Incendiaries Supervisor Name Role Phone Efra Mejia MD Primary Care Physician Encounter [facility] [place] Date(s): 04/23/23 - 04/30/23 [facility] [address] [place] [address]- Attending Physician: Efra Mejia MD Allergies, Adverse Reactions, Alerts No Known Allergies Immunizations Given and Recorded Vaccine Date Status Refusal Reason SARS-CoV-2 mRNA ([id number]) vax 04/27/22 Recorded influenza virus vaccine, inactivated 1 07/06/21 Gi [...] 23-valent vaccine 8 04/01/12 Given 1Result Comment: [facility]#[id number] 2Result Comment: [07/31/2018] [facility]# [id number] 3Result Comment: [08/26/2015] [facility] at [facility] 4Admin Note: VIM 03/17/12 5Admin Note: VIM 04/10/11 6Admin Note: VIM 08/03/08 7Admin Note: VIS GIVEN 04/10/13 8Admin Note: vis given dated 06/21/09 Medications ARIPiprazole 5 mg oral tablet 5 mg, 1, tablet, By Mouth, Daily, # 90 tablet, Refills 1, Tot. Refills 1, Maintenance, 03/01/23 10:12:00 EDT, Route to Pharmacy Electronically, [facility]/pharmacy #[id number], Partial fill upon patient request if the prescription is for a schedule II opioid drug.... Start Date: 03/01/23 Stop Date: 08/28/23 Status: Ordered citalopram 40 mg oral tablet 40 mg, 1, tablet, By Mouth, Daily, Take with food., # 90 tablet, Refills 1, Tot. Refills 1, Maintenance, 03/01/23 10:12:00 EDT, Route to Pharmacy Electronically, [id number], 181.5, cm, 02/05/23 12:41:00 EDT, Height, 103, kg, 10/26/22 11:39:00... Start Date: 03/01/23 Stop Date: 08/28/23 Status: Ordered donepezil 10 mg oral tablet 10 mg, 1, tablet, By Mouth, Daily at bedtime, # 90 tablet, Refills 2, Tot. Refills 2, Maintenance, 10/11/22 12:01:00 EST, Route to Pharmacy Electronically, [facility]/pharmacy #[id number], Partial fill upon patient request if the prescription is for a schedule II... Start Date: 10/11/22 Stop Date: 07/08/23 Status: Ordered ferrous sulfate 325 mg oral enteric coated tablet 325 mg, By Mouth, Daily, Refills 3, Maintenance, 07/19/21 10:08:00 EDT, Partial fill upon patient request if the prescription is for a schedule II opioid drug. Start Date: 07/19/21 Status: Ordered fluconazole 200 mg oral tablet 1 tablet = 200 mg, By Mouth, Daily, for 14 days, # 14 tablet, 0 Refills, Acute 05/07/23 15:44:00 EDT, 04/23/23 15:44:00 EDT, Tablet, [facility]/pharmacy #[id number], dose change, 181.5, cm, 04/23/23 15:02:00 EDT,Height, 103, kg, 10/26/22 11:39:00 EST, Dry Weight Start Date: 04/23/23 Stop Date: 05/07/23 Status: Ordered fluticasone 50 mcg/inh nasal spray 2 sprays, Nares, Both, Daily in AM, 0 Refills, Maintenance, 07/14/21 14:22:00 EDT, [place], Partial fill upon patient request if the [...] 03/27/23 17:30:00 EDT, Route to Pharmacy Electronically, [facility]/pharmacy #[id number], override needed for lost prescription, thanks., 181.5, cm, 03/07/23 10:11:0... Start Date: 03/27/23 Status: Ordered levothyroxine 0.112 mg oral tablet 2 tablet = 224 mcg, By Mouth, Daily, # 60 tablet, 2 Refills, Maintenance, 03/27/23 12:47:00 EDT, Tablet, [facility]/pharmacy #[id number], 181.5, cm, 03/07/23 10:11:00 EDT, Height, 103, kg, 10/26/22 11:39:00 EST, Dry Weight Start Date: 03/27/23 Stop Date: 06/25/23 Status: Ordered melatonin 5 mg oral tablet 1 tablet = 5 mg, By Mouth, Daily at bedtime, PRN for insomnia, # 60 tablet, 0 Refills, Maintenance,07/13/21 22:12:00 EDT, Tablet, Partial fill upon patient request if the prescription is for a schedule II opioid drug. Start Date: 07/13/21 Status: Ordered mupirocin 2% topical ointment 1 application, Topically, 2 times a day, for 14 days, apply to open wound on R stump, # 30 Gm, 0 Refills, Acute 05/07/23 15:44:00 EDT, 04/23/23 15:44:00 EDT, Ointment, [id number], Partial fill upon patient request if the prescription is for a... Start Date: 04/23/23 Stop Date: 05/07/23 Status: Ordered nystatin topical 968890 u/gm powder See Instructions, apply to stump 3 x day, # 120 Gm, 5 Refills, Maintenance, 04/23/23 15:43:00 EDT, Powder, [id number], Partial fill upon patient request if the prescription is for a schedule II opioid drug., apply to stump 3 x day, 181.5, cm... Start Date: 04/23/23 Status: Ordered nystatin topical 920118 u/gm powder See Instructions, apply to stump [...] dose reduction, # 90 capsule, 1 Refills, Maintenance,03/01/23 10:12:00 EDT, Capsule, [facility]/pharmacy #[id number], Partial fill upon patient request if the prescription is for a schedule II opioid drug., 181.5, cm,... Start Date: 03/01/23 Stop Date: 08/28/23 Status: Ordered ramelteon 8 mg oral tablet 1 tablet = 8 mg, By Mouth, Daily at bedtime, # 90 tablet, 1 Refills, Maintenance, 03/01/23 10:13:00EDT, Tablet, [facility]/pharmacy #[id number], Partial fill upon patient request if the prescription is for a schedule II opioid drug., 181.5, cm, 02/05/23 12:41:00... Start Date: 03/01/23 Stop Date: 08/28/23 Status: Ordered Readi-Cat 2 oral suspension 450 [...] in AM, 1 film sublingual in PM [id number], # 75 film, 1 Refills, Maintenance, 04/26/23 8:11:00 EDT, [id number], 1.5 films sublingual in AM, 1 film sublingual in PM ; [id number], 181.5, cm, 04/23/23 15:02:... Start Date: 04/26/23 Status: Ordered tamsulosin 0.4 mg oral capsule 0.4 mg, 1, capsule, By Mouth, Daily, # 90 capsule, Refills 3, Tot. Refills 3, Maintenance, 12/20/2315:00:00 EDT, Route to Pharmacy Electronically, [facility]/pharmacy #[id number], Partial fill upon patient request if [...] tx. 2seen by ortho 10/04 and 01/02 Vital Signs Most recent to oldest [Reference Range]: 1 Height 181.5 cm (04/23/23 3:02 PM) Oxygen Saturation [94-100 %] 96 % (04/23/23 3:02 PM) Pulse Rate [55-90 bpm] 78 bpm (04/23/23 3:02 PM) Blood Pressure [90-138/55-84 mm Hg] 92/5 5mm Hg (04/23/23 3:02 PM) Temperature [96.8-100.4 DegF] 98.6 DegF (04/23/23 3:02 PM) Blood pressure sites Arm, left (04/23/23 3:02 PM) Temperature Route Temporal (04/23/23 3:02 PM) Social History Social History Type Response Tobacco Other: 3 cigars brenden y. Sex Note * Humaira Quinteros: PERFORM, SIGN, VERIFY Event Display: Patient Education/Instruction Authored Date: [id number] [facility] *[facility] Clinical Summary Name NIHARIKA CUMMINS Age 67 Years 1955 PCP Roberto CH, Efra Miramontes PCP Visit Date 04/23/2023 14:50:00 Additional Instructions: Scheduled Appointments?? Future Appointments ?*[facility] ?[address] ?[place],??[place],??[address] ?Phone:??--?Fax:??-- ?Appt. Date:??06/06/2023?4:30 PM ?Scheduled Provider:??Matias Zhou MD Follow-Up Instructions ?? Diagnosis Other complications of amputation stump; Candidiasis of skin and nail Medications: Please continue your medications until treatment is completed or stopped by your provider. Discuss any questions related to medications with your provider. New Medications [facility]/pharmacy #[id number], [address] [place] [id number], [phone] Fluconazole (fluconazole 200 mg oral tablet) 1 tab(s) Oral Daily for 14 Days. Refills: 0. Next Dose: Mupirocin Topical (mupirocin 2% topical ointment) 1 celestina Topically twice a day for 14 Days. apply toopen wound on R stump. Refills: 0. Next Dose: Medications to Continue Taking That Have Changed [facility]/pharmacy #[id number], [address] [place] [id number], [phone] - Nystatin Topical (nystatin topical 187307 u/gm powder) apply to stump 3 x day. Refills: 5. Next Dose: These medications were not printed or sent to your pharmacy - Nystatin Topical (nystatin topical 941004 u/gm powder) apply to stump 3 x day. Refills: 5. Next Dose: Medications to Continue with No Changes These medications were not printed or sent to your pharmacy Aripiprazole (ARIPiprazole 5 mg oral tablet) 1 tab(s) Oral Daily for 90 Days. Refills: 1. Next Dose: Barium Sulfate (Readi-Cat 2 oral suspension) 450 Milliliter Oral twice a day. Please dispense two 450 mL bottles for a total dose that equals 900 mLs. Drink first bottle [address] and then drink second bottle [address] scan. Refills: 0. Next Dose: Buprenorphine-Naloxone (Suboxone 8 mg-2 mg Sublingual Film) 1.5 films sublingual in AM, 1 film sublingual in PM [id number]. Refills: 1. Next Dose: Citalopram (citalopram 40 mg oral tablet) 1 tab(s) Oral Daily for 90 Days. Take with food.. Refills: 1. Next Dose: Donepezil (donepezil 10 mg oral tablet) 1 tab(s) Oral Daily at Bedtime for 90 Days. Refills: 2. Next Dose: Ferrous Sulfate (ferrous sulfate 325 mg oral enteric coated tablet) 325 Milligram Oral Daily. Next Dose: Fluticasone Nasal (fluticasone 50 mcg/inh nasal spray) 2 spray(s) Nares, Both Daily in the morning. Next Dose: Folic Acid (folic acid 1 mg oral tablet) 1 tab(s) Oral Daily. Next Dose: Gabapentin (gabapentin 400 mg oral capsule) 1 capsule Oral twice a day. Refills: 5. Next Dose: Levothyroxine (levothyroxine 0.112 mg oral tablet) 2 tab(s) Oral Daily for 30 Days. Refills: 2. Next Dose: Melatonin (melatonin 5 mg oral tablet) 1 tab(s) Oral Daily at Bedtime as needed for insomnia. Next Dose: Omeprazole (omeprazole 20 mg oral enteric coated capsule) 1 capsule Oral Daily. Refills: 5. Next Dose: Prazosin (prazosin 2 mg oral capsule) 1 capsule Oral Daily at Bedtime for 90 Days. dose reduction. Refills: 1. Next Dose: Ramelteon (ramelteon 8 mg oral tablet) 1 tab(s) Oral Daily at Bedtime for 90 Days. Refills: 1. Next Dose: Tamsulosin (tamsulosin 0.4 mg oral capsule) 1 capsule Oral Daily. Refills: 3. Next Dose: Allergy Info:?? NKA Medications Given This Visit Future Orders ?No future orders Vital Signs Height 181.5 cm Weight BMI Blood Pressure 92 mm Hg/55 mm Hg Temperature 98.6 DegF Pulse Rate 78 bpm Respiratory Rate 02 Sat Mode of Delivery 96 %/ You can now view a summary of your hospital visit from the comfort of your home through a free online portal called [employer]. [employer] is a website that allows you to securely view your medical information including discharge summary, medications and follow-up visits. ??You can alsosend a secure electronic message to your doctor???s office to request appointments, renew medications or just ask a question. You can enroll at [email or web address] or register during your next office visit. Disclaimer:?? The information provided is of a general nature and is intended to be used in conjunction with the recommendations and advice of your health care practitioner. ??Every effort has been made to ensure that the information provided is accurate and complete at the time it is provided to you however, as your needs change, or, as new ??information becomes available, different or additional instructions may be required. If you have questions, please consult with your primary care provider or pharmacist, as appropriate. ??This information is not intended to serve as substitution for assessment and evaluation by a qualified health care provider. If you do not have a primary care provider, you may find a [facility] provider by calling [facility] [employer] Link at [phone]. For information about the plan of care including goals and instructions for your diagnosis, please see the patient education orders section of this document. Patient Education Materials?? The content of this educational material or handout may have been modified, supplemented, or adapted from its original content and format to support your individualized medical care. Patient Care team information Care Team Personnel Name: .Cayla Jean RN Position: [facility] ED RN W/OE and Tasks Member Role: Primary Care Nurse Name: Alka Lee RN Position: [facility] RN Member Role: Primary Care Nurse Name: Jaleel Lo RN Position: [facility] RN Member Role: Primary Care Nurse Name: Ivy Smith RN Position: [facility] RN Member Role: Primary Care Nurse Name: Efra Mejia MD Position: [facility] Physician - Primary Care Member Role: PCP Address: Address: [address] [place] [address] Name: Devorah Johnson RN Position: [facility] RN Member Role: Primary Care Nurse Name: Dustin Chavez RN Position: [facility] RN Member Role: Primary Care Nurse Name: Litzy Weinberg RN Position: [facility] RN Member Role: Primary Care Nurse Name: Melanie Garay Position: [facility] RN Member Role: Primary Care Nurse Name: Michelle Akbar [place] Position: [facility] RN Member Role: Primary Care Nurse Name: Saundra Gonzalez Position: [facility] RN Member Role: Primary Care Nurse Name: Sofía Moreno RN Position: [facility] RN Member Role: Primary Care Nurse Name: Sary Tong RN Position: [facility] RN Member Role: Primary Care Nurse Name: Sophia Lomas RN Position: [facility] RN Member Role: Primary Care Nurse Name: Danielito Woo RN Position: [facility] Sustainability Officer Member Role: Primary Care Nurse Care Team Related Persons Name: PHILIPTINY CORRAL Address: [address] [place] [address] Name: FERNIE CUMMINS Address: [address] [place] [address] Name: TINY CUMMINS Address: [address] [place] [address]
--- OUTSIDE RECORDS SUMMARY | 2023-10-18 20:34 | XMS_ITS | Continuity of Care Document ---
Author Name Unknown Organization [facility] Address [address] [place] [address]- Care Team Providers Care Print Production Associate Name Role Phone Efra Mejia MD Primary Care Physician [phone] Encounter [facility] [place] Date(s): 11/17/19 - 11/24/19 [facility] [address] [place] [address]- [facility] Attending Physician: Efra Mejia MD Allergies, Adverse Reactions, Alerts Substance Reaction Severity Status NKA Active Immunizations Given and Recorded Vaccine Date Status Refusal Reason Influenza Virus Vaccine (oldterm) 06/08/19 Recorde d influenza virus vaccine, inactivated 1 07/31/18 Gi raheem influenza virus vaccine, inactivated 07/05/16 Give n influenza virus vaccine, inactivated 2 08/01/15 Re corded influenza virus vaccine, inactivated 3 08/13/12 Gi raheem influenza virus vaccine, inactivated 4 08/16/11 Gi raheem Fluarix (oldterm) 5 08/19/13 Given pneumococcal 23-valent vaccine 6 04/01/12 Given tetanus/diphtheria/pertussis, acel(Tdap) 7 03/05/11 Given 1Result Comment: [07/31/2018] [facility]# [id number] 2Result Comment: [08/26/2015] done at [facility] 3Admin Note: VIM 03/17/12 4Admin Note: VIM 04/10/11 5Admin Note: VIS GIVEN 04/10/13 6Admin Note: vis given dated 06/21/09 7Admin Note: VIM 08/03/08 Medications aspirin 81 mg oral delayed release tablet 81 mg, 1, tablet, By Mouth, Daily, # 90 tablet, Refills 0, Maintenance, 01/20/18 13:33:45 EDT Start Date: 01/20/18 Status: Ordered Compression Stockings See Instructions, # 2 each, Maintenance, surgical, calf length 20-30 mm Hg, 11/12/19 10:03:00 EST, Compound Start Date: 11/12/19 Status: Ordered diclofenac 1% topical gel 1 application, Topically, 4 times a day, not to exceed 8 grams/day/single joint of upper extremities, # 100 Gm, 1 Refills, Maintenance, 11/12/19 10:02:00 EST, Gel, [id number], 180.3, cm, 11/12/19 8:43:00 EST, Height, 120.7, kg, 11/03/19 13:31:... Start Date: 11/12/19 Status: Ordered fexofenadine 180 mg oral tablet 1 tablet = 180 mg, By Mouth, Daily, # 30 tablet, 5 Refills, Maintenance, 12/11/18 10:53:56 EDT, Tablet Start Date: 12/11/18 Status: Ordered fluticasone 50 mcg/inh nasal spray 2 sprays, Nares, Both, Daily, # 1 each, 11 Refills, Maintenance, 02/27/18 16:08:09 EDT, 2 sprays Nares, Both Daily Start Date: 02/27/18 Status: Ordered folic acid 1 mg oral tablet 1 mg, 1, tablet, By Mouth, 2 times a day, Take with food, # 60 tablet, Refills 5, Tot. Refills 5, Maintenance, 07/02/16 16:06:12, Route to Pharmacy Electronically, [id number], [facility] #[facility] Start Date: 07/02/16 Stop Date: 12/29/16 Status: Ordered Freestyle Lancets See Instructions, # 100 each, Refills 5, Tot. Refills 5, Maintenance, Test BID for hyperglycemia; DM uncontrolled ( E11.65 and R73.9), 08/01/18 9:34:58 EST, Compound Start Date: 08/01/18 Stop Date: 01/28/19 Status: Ordered Freestyle Lite Monitor See Instructions, # 1 each, Maintenance, Test BID for hyperglycemia; DM uncontrolled ( E11.65 and R73.9), 08/01/18 9:35:53 EST, Compound Start Date: 08/01/18 Status: Ordered Freestyle Lite Test Strips See Instructions, # 100 each, Refills 5, Tot. Refills 5, Maintenance, Test BID for hyperglycemia; uncontrolled DM ( R73.9 and E11.65), 08/01/18 9:33:06 EST, Compound Start Date: 08/01/18 Stop Date: 01/28/19 Status: Ordered gabapentin 600 mg oral tablet 1 tablet = 600 mg, By Mouth, 3 times a day, # 90 tablet, 5 Refills, Maintenance, 10/22/19 10:55:00 EST, Tablet, [facility]/pharmacy #[id number], 180.3, cm, 10/22/19 10:14:00 EST, Height, 118.5, kg, 05/12/19 10:33:00 EDT, Dry Weight Start Date: 10/22/19 Status: Ordered ibuprofen 800 mg oral tablet 800 mg, 1, tablet, By Mouth, Every 8 hours, PRN, # 90 tablet, Refills 0, Tot. Refills 0, Maintenance, as needed for pain, 04/10/19 17:13:55 EDT, Route to Pharmacy Electronically, [id number], [facility] #[facility] Start Date: 04/10/19 Stop Date: 05/10/19 Status: Ordered Insulin Syringe, BD Ultra-Fine 0.3 cc 31 G x 8 mm (5/16in) See Instructions, # 100 each, Refills 1, Tot. Refills 1, Maintenance, as directed for type 2 diabetes., 05/21/19 12:51:57 EDT, Compound Start Date: 05/21/19 Status: Ordered Lantus Solostar Pen 100 units/mL subcutaneous solution = 20 units, Subcutaneous Injection, 2 times a day, # 15 mL, 5 Refills, Maintenance, 11/17/19 8:28:00 EST, Solution, [facility]/pharmacy #[id number], 180.3, cm, 11/12/19 15:07:00 EST, Height, 120.7, kg, 11/03/19 13:31:00 EST, Dry Weight Start Date: 11/17/19 Status: Ordered levothyroxine 0.112 mg oral tablet 2 tablet = 224 mcg, By Mouth, Daily, # 60 tablet, 5 Refills, Maintenance, 06/18/19 9:13:12 EDT, Tablet Start Date: 06/18/19 Stop Date: 12/15/19 Status: Ordered lisinopril 20 mg oral tablet 20 mg, 1, tablet, By Mouth, Daily, # 90 tablet, Refills 3, Tot. Refills 3, Maintenance, 01/20/18 13:36:03 EDT, Route to Pharmacy Electronically, [id number], [facility] #36 Start Date: 01/20/18 Stop Date: 01/15/19 Status: Ordered metFORMIN 1000 mg oral tablet 1 tablet = 1,000 mg, By Mouth, 2 times a day, # 180 tablet, 3 Refills, Maintenance, 01/20/18 13:36:05 EDT, Tablet Start Date: 01/20/18 Stop Date: 01/15/19 Status: Ordered MiraLax oral powder for reconstitution = 17 Gm, By Mouth, Daily, dissolve in water before taking, # 527 Gm, 1 Refills, Maintenance, 07/04/17 14:05:15, REC Powder, 17 Gm By Mouth Daily,Instr:dissolve in water before taking Start Date: 07/04/17 Status: Ordered nadolol 20 mg oral tablet 20 mg, 1, tablet, By Mouth, Daily, # 90 tablet, Refills 1, Tot. Refills 1, Maintenance, 11/12/19 15:56:00 EST, Route to Pharmacy Electronically, [facility]/pharmacy #[id number], 180.3, cm, 11/12/19 15:07:00 EST, Height, 120.7, kg, 11/03/19 13:31:00 EST, Dry Weight Start Date: 11/12/19 Status: Ordered Novolin N human recombinant 100 u/ml subcutaneous injection = 25 units, Subcutaneous Injection, 2 times a day, # 3 mL, 5 Refills, Maintenance, 06/18/19 9:14:04EDT, Suspension Start Date: 06/18/19 Stop Date: 12/15/19 Status: Ordered NovoLOG FlexPen 100 units/mL subcutaneous solution See Instructions, 25 units AM and 30 units afternoon Subcutaneous Injection, # 15 mL, 5 Refills, Maintenance, 07/24/19 17:52:05 EST, Solution Start Date: 07/24/19 Status: Ordered NuLYTELY with Flavor Packs oral powder for reconstitution 240 mL, By Mouth, Every 10 minutes, # 1 each, 0 Refills, Maintenance, 06/19/19 7:23:25 EDT, REC Powder, test date 10/16/19, 240 mL By Mouth Every 10 minutes Start Date: 06/19/19 Status: Ordered omeprazole 40 mg oral enteric coated capsule 1 capsule = 40 mg, By Mouth, Daily, # 30 capsule, 0 Refills, Maintenance, 08/27/19 11:54:11 EST, ECCapsule, 180, cm, 08/27/19 11:23:28 EST, Height, 118.5, kg, 05/12/19 10:33:34 EDT, Dry Weight Start Date: 08/27/19 Status: Ordered Pen Casa, 29 G x 12.7 mm BD Ultra Fine See Instructions, # 1 box, Refills 3, Tot. Refills 3, Maintenance, use with NOvolog Pen injection twice daily, 06/18/19 9:42:43 EDT, Compound Start Date: 06/18/19 Status: Ordered pioglitazone 45 mg oral tablet 1 tablet = 45 mg, By Mouth, Daily, # 90 tablet, 3 Refills, Maintenance, 01/20/18 13:36:04 EDT, Tablet Start Date: 01/20/18 Stop Date: 01/15/19 Status: Ordered triamcinolone 0.5% topical cream 1 application, Topically, 2 times a day, 1/4 gm to affected area apply a thin film, # 20 Gm, 3 Refills, Maintenance, 05/22/18 9:51:39 EDT, Cream, 1 application Topically 2 times a day,Instr:1/4 gm toaffected area; apply a thin film Start Date: 05/22/18 Status: Ordered Problem List Condition Effective Dates Status Health Status Inform ant Diabetes mellitus type 2(Confirmed) Active Diabetic nephropathy(Confirmed) Active Dysphagia(Confirmed) Active Former smoker(Confirmed) Active Generalized anxiety disorder(Confirmed) Active Hypertension(Confirmed) Active Hypogonadism(Confirmed) 2010 Active Hypothyroidism(Confirmed) Active Local infection of wound(Confirmed) Active Moderate [...]
--- OUTSIDE RECORDS SUMMARY | 2023-10-18 20:34 | XMS_ITS | Continuity of Care Document ---
Author Name Unknown Organization [facility] Address [address] [place] [address]- Care Team Providers Care Supervisor Cytology Name Role Phone Efra Mejia MD Primary Care Physician Encounter [facility] Date(s): 04/03/21 - 04/03/[address] [address]- Encounter Diagnosis Rib pain(Final) - 04/03/21 Discharge Disposition: A-D/C Home Attending Physician: Barry Cortes MD Admitting Physician: Barry Cortes MD Referring Physician: Not on Staff, Referring MD Allergies, Adverse Reactions, Alerts Substance Reaction Severity Status NKA Active Immunizations Given and Recorded Vaccine Date Status Refusal Reason SARS-CoV-2 (COVID-19) mRNA BNT-162b2 vac 12/04/20 Recorded SARS-CoV-2 (COVID-19) mRNA BNT-162b2 vac 11/13/20 Recorded influenza virus vaccine, inactivated 06/21/20 Give n influenza virus vaccine, inactivated 1 07/31/18 Gi raheem influenza virus vaccine, inactivated 07/05/16 Give n influenza virus vaccine, inactivated 2 08/01/15 Re corded influenza virus vaccine, inactivated 05/18/15 Nacho rded influenza virus vaccine, inactivated 3 08/13/12 Gi raheem influenza virus vaccine, inactivated 4 08/16/11 Gi raheem Influenza Virus Vaccine (oldterm) 06/08/19 Recorde d Fluarix (oldterm) 5 08/19/13 Given pneumococcal 23-valent vaccine 6 04/01/12 Given tetanus/diphtheria/pertussis, acel(Tdap) 7 03/05/11 Given 1Result Comment: [07/31/2018] [facility]# [id number] 2Result Comment: [08/26/2015] done at [facility] 3Admin Note: VIM 03/17/12 4Admin Note: VIM 04/10/11 5Admin Note: VIS GIVEN 04/10/13 6Admin Note: vis given dated 06/21/09 7Admin Note: VIM 08/03/08 Medications Compression Stockings See Instructions, # 2 each, Maintenance, surgical, calf length 20-30 mm Hg, 11/12/19 10:03:00 EST, Compound Start Date: 11/12/19 Status: Ordered fluticasone 50 mcg/inh nasal spray 2 sprays, Nares, Both, Daily, # 16 Gm, 5 Refills, Maintenance, 12/15/20 12:56:00 EDT, [place], [id number], Partial fill upon patient request if the prescription is for a schedule II opioid drug., 2 sprays Nares, Both Daily, 183, cm, 12/15/20 11:... Start Date: 12/15/20 Status: Ordered Freestyle Lancets See Instructions, # 100 each, Refills 5, Tot. Refills 5, Maintenance, Test BID for hyperglycemia; DM uncontrolled ( E11.65 and R73.9), 05/20/20 7:43:00 EDT, Compound, 180.3, cm, 05/06/20 16:07:00 EDT, Height, 120.7, kg, 11/03/19 13:31:00 EST, Dry Weight Start Date: 05/20/20 Stop Date: 11/16/20 Status: Ordered Freestyle Lite Monitor See Instructions, # 1 each, Maintenance, Test BID for hyperglycemia; DM uncontrolled ( E11.65 and R73.9), 08/01/18 9:35:53 EST, Compound Start Date: 08/01/18 Status: Ordered Freestyle Lite Test Strips See Instructions, # 100 each, Refills 5, Tot. Refills 5, Maintenance, Test BID for hyperglycemia; uncontrolled DM ( R73.9 and E11.65), 05/20/20 7:43:00 EDT, Compound, 180.3, cm, 05/06/20 16:07:00 EDT, Height, 120.7, kg, 11/03/19 13:31:00 EST, Dry Weight Start Date: 05/20/20 Stop Date: 11/16/20 Status: Ordered gabapentin 300 mg oral capsule 300 mg, 1, capsule, By Mouth, 2 times a day, # 60 capsule, Refills 5, Tot. Refills 5, Maintenance, 10/27/20 10:24:00 EST, [id number] Partial fill upon patient request if the prescription is for a schedule II... Start Date: 10/27/20 Status: Ordered Insulin Syringe, BD Ultra-Fine 0.3 cc 31 G x 8 mm (5/16in) See Instructions, # 100 each, Refills 1, Tot. Refills 1, Maintenance, as directed for type 2 diabetes., 05/21/19 12:51:57 EDT, Compound Start Date: 05/21/19 Status: Ordered Lantus Solostar Pen 100 units/mL subcutaneous solution = 40 units, Subcutaneous Injection, 2 times a day, # 15 mL, 5 Refills, Maintenance, 10/27/20 10:22:00 EST, Solution, [facility]/pharmacy #[id number], 183, cm, 10/27/20 8:41:00 EST, Height, 119, kg, 09/23/20 17:06:00 EST, Dry Weight Start Date: 10/27/20 Status: Ordered levothyroxine 0.112 mg oral tablet 2 tablet = 224 mcg, By Mouth, Daily, # 60 tablet, 5 Refills, Maintenance, 10/27/20 10:22:00 EST, Tablet, [facility]/pharmacy #[id number], 183, cm, 10/27/20 8:41:00 EST, Height, 119, kg, 09/23/20 17:06:00 EST, DryWeight Start Date: 10/27/20 Stop Date: 04/25/21 Status: Ordered Lidoderm 5% film 1 patch, Topically, Daily, # 30 patch, 0 Refills, Maintenance, 04/03/21 9:04:00 EDT, [facility]/pharmacy #[id number], Partial fill upon patient request if the prescription is for a schedule II opioid drug., 1 patch Topically Daily, 180, cm, 04/03/21 7:30:00 EDT, H... Start Date: 04/03/21 Status: Ordered lisinopril 20 mg oral tablet 40 mg, 2, tablet, By Mouth, Daily, # 60 tablet, Refills 5, Tot. Refills 5, Maintenance, 10/27/20 10:22:00 EST, Route to Pharmacy Electronically, [facility]/pharmacy #[id number], Partial fill upon patient request if the prescription is for a schedule II opioid drug... Start Date: 10/27/20 Status: Ordered Melatonin 5 mg oral tablet 1 tablet = 5 mg, By Mouth, Daily at bedtime, # 30 tablet, 5 Refills, Maintenance, 12/15/20 12:56:00EDT, Tablet, [facility]/pharmacy #[id number], Partial fill upon patient request if the prescription is for a schedule II opioid drug., 183, cm, 12/15/20 11:23:00 ED... Start Date: 12/15/20 Status: Ordered MorPHINE Inj 4 mg, Injection, IV Push Slowly, Every 30 minutes for 2 doses/times, Hold for: SBP <90, *or* SpO2 <90, *or* Resp rate <10, PRN for Pain , Severe, Pain >2/10, STAT, 04/03/21 6:56:00 EDT, Stop date Limited # of times Start Date: 04/03/21 Stop Date: 04/03/21 Status: Discontinued nystatin topical 854570 u/gm powder See Instructions, apply to stump daily, # 30 Gm, 5 Refills, Maintenance, 12/15/20 12:56:00 EDT, Powder, [facility]/pharmacy #[id number], Partial fill upon patient request if the prescription is for a schedule II opioid drug., apply to stump daily, 183, cm, ... Start Date: 12/15/20 Status: Ordered omeprazole 20 mg oral enteric coated capsule 1 capsule = 20 mg, By Mouth, Daily, # 30 capsule, 5 Refills, Maintenance, 10/27/20 10:22:00 EST, ECCapsule, [id number], 183, cm, 10/27/20 8:41:00 EST, Height, 119, kg, 09/23/20 17:06:00 EST,Dry Weight Start Date: 10/27/20 Status: Ordered Pen [place], 29 G x 12.7 mm BD Ultra Fine See Instructions, # 1 box, Refills 3, Tot. Refills 3, Maintenance, use with NOvolog Pen injection twice daily, 06/18/19 9:42:43 EDT, Compound Start Date: 06/18/19 Status: Ordered Probiotic Formula By Mouth, Daily, 0 Refills, Maintenance, 01/19/21 15:29:00 EDT, Partial fill upon patient request if the prescription is for a schedule II opioid drug. Start Date: 01/19/21 Status: Ordered tamsulosin 0.4 mg oral capsule 0.4 mg, 1, capsule, By Mouth, Daily, # 30 capsule, Refills 11, Tot. Refills 11, Maintenance, 12/15/20 12:56:00 EDT, Route to Pharmacy Electronically, [facility]/pharmacy #[id number], 183, cm, 12/15/20 11:23:00 EDT, Height, 119, kg, 09/23/20 17:06:00 EST, Dry Weight Start Date: 12/15/20 Status: Ordered traZODone 50 mg oral tablet [...] 5 Refills, Maintenance, 12/15/20 12:38:00 EDT, Solution, [facility]/pharmacy #[id number], Partial fill upon patient request if the prescription is for a schedule II opioid drug., 183, cm, 12/15/20 11:2... Start Date: 12/15/20 Status: Ordered Walker See Instructions, # 1 each, Maintenance, as needed for gait difficulty, 06/23/20 14:57:00 EDT, Supply Start Date: 06/23/20 Status: Ordered Problem List Condition Effective Dates [...] Most recent to oldest [Reference Range]: 1 2 3 Height 180 cm (04/03/21 7:30 AM) 180 cm (04/03/21 5:13 AM) Weight 105 kg (04/03/21 7:30 AM) 105 kg (04/03/21 5:13 AM) Oxygen Saturation [94-100 %] 99 % (04/03/21 7:30 AM) 95 % (04/03/21 5:13 AM) Pulse Rate [55-90 bpm] 66 bpm (04/03/21 7:30 AM) 63 bpm (04/03/21 5:13 AM) Body Mass Index [18.5-24.99] 32.41 *>HHI* (04/03/21 7:30 AM) Blood Pressure [90-138/55-84 mm Hg] 149/67mm Hg *H* (04/03/21 7:30 AM) 107/65mm Hg (04/03/21 5:13 AM) Respiratory Rate [16-30 br/min] 18 br/min (04/03/21 7:53 AM) 22 br/min (04/03/21 7:30 AM) 20 br/min (04/03/21 7:23 AM) Temperature [96.8-100.4 DegF] 97.8 DegF (04/03/21 5:13 AM) Mode of Delivery (Oxygen) Room air (04/03/21 7:30 AM) Room air (04/03/21 5:13 AM) Blood pressure sites Arm, right (04/03/21 7:30 AM) Temperature Route Oral (04/03/21 5:13 AM) Dry Weight 105 kg (04/03/21 7:30 AM) 105 kg (04/03/21 5:13 AM) Social History Social History Type Response Tobacco Other: 3 cigars brenden y. Sex Male
--- OUTSIDE RECORDS SUMMARY | 2023-10-18 20:34 | XMS_ITS | Continuity of Care Document ---
Author Name Unknown Organization [facility] Address [address] [place] [address]- Care Team Providers Care Cdl Program Coordinator Name Role Phone Roberto CH, Efra Miramontes Primary Care Physician Encounter [facility] Date(s): 01/24/21 - 02/23/21 [facility] [address] [place] [address]- Attending Physician: Admlinda, Bobby Admitting Physician: AdmtrBobby [...] acel(Tdap) 7 03/05/11 Given 1Result Comment: [07/31/2018] [facility]# [id number] 2Result Comment: [08/26/2015] done at [facility] 3Admin Note: VIM 03/17/12 4Admin Note: VIM 04/10/11 5Admin Note: VIS GIVEN 04/10/13 6Admin Note: vis given dated 06/21/09 7Admin Note: VIM 08/03/08 Medications albuterol CFC free 90 mcg/inh inhalation aerosol 1, puffs, Inhalation, 4 times a day, PRN, # 18 Gm, Refills 0, Tot. Refills 0, Maintenance, 12/02/2009:56:00 EDT, Aerosol, Route to Pharmacy Electronically, [id number], [facility]/pharmacy #[id number], 180.3, cm, 11/12/19 15:07:00 EST, He... Start Date: 12/03/19 Status: Ordered aspirin 81 mg oral delayed release tablet [...] Gm, 5 Refills, Maintenance, 12/15/20 12:56:00 EDT, [place], [facility]/pharmacy #[id number], Partial fill upon patient request if the prescription is for a schedule II opioid drug., 2 sprays Nares, Both Daily, 183, cm, 12/15/20 11:... Start Date: 12/15/20 Status: Ordered folic acid 1 mg oral tablet 1 mg, 1, tablet, By Mouth, 2 times a day, Take with food, # 60 tablet, Refills 5, Tot. Refills 5, Maintenance, 07/02/16 16:06:12, Route to Pharmacy Electronically, [id number], [facility] Start Date: [...] 10/27/20 10:24:00 EST, Route to Pharmacy Electronically, [facility]/pharmacy #[id number], Partial fill upon patient request [...] 5 Refills, Maintenance, 10/27/20 10:22:00 EST, Solution, [facility]/pharmacy #[id number], 183, cm, 10/27/20 8:41:00 EST, Height, 119, kg, 09/23/20 17:06:00 EST, Dry Weight Start Date: 10/27/20 Status: Ordered levothyroxine 0.112 mg oral tablet 2 tablet = 224 mcg, By Mouth, Daily, # 60 tablet, 5 Refills, Maintenance, 10/27/20 10:22:00 EST, Tablet, [facility]/pharmacy #[id number], 183, cm, 10/27/20 8:41:00 EST, Height, 119, kg, 09/23/20 17:06:00 EST, DryWeight Start Date: 10/27/20 Stop Date: 04/25/21 Status: Ordered lisinopril 20 mg oral tablet 40 mg, 2, tablet, By Mouth, Daily, # 60 tablet, Refills 5, Tot. Refills 5, Maintenance, 10/27/20 10:22:00 EST, Route to Pharmacy Electronically, [facility]/pharmacy #[id number], Partial fill upon patient request if the prescription is for a schedule II opioid drug... Start Date: 10/27/20 Status: Ordered Melatonin 5 mg oral tablet 1 tablet = 5 mg, By Mouth, Daily at bedtime, # 30 tablet, 5 Refills, Maintenance, 12/15/20 12:56:00EDT, Tablet, [facility]/pharmacy #[id number], Partial fill upon patient request if the prescription is for a schedule II opioid drug., 183, cm, 12/15/20 11:23:00 ED... Start Date: 12/15/20 Status: Ordered MiraLax oral powder for reconstitution = 17 Gm, By Mouth, Daily, dissolve in water before taking, # 527 Gm, 5 Refills, Maintenance, 10/27/20 10:23:00 EST, REC Powder, [id number], 17 Gm By Mouth Daily,Instr:dissolve in water beforetaking, 183, cm, 10/27/20 8:41:00 EST, Height, 119,... Start Date: 10/27/20 Status: Ordered nystatin topical 794249 u/gm powder See Instructions, apply to stump daily, # 30 Gm, 5 Refills, Maintenance, 12/15/20 12:56:00 EDT, Powder, [facility]/pharmacy #[id number], Partial fill upon patient request if the prescription is for a schedule II opioid drug., apply to [facility] daily, 183, cm, ... Start Date: 12/15/20 Status: Ordered omeprazole 20 mg oral enteric coated capsule 1 capsule = 20 mg, By Mouth, Daily, # 30 capsule, 5 Refills, Maintenance, 10/27/20 10:22:00 EST, ECCapsule, [facility]/pharmacy #[id number], 183, cm, 10/27/20 8:41:00 EST, Height, 119, kg, 09/23/20 17:06:00 EST,Dry Weight Start Date: 10/27/20 Status: Ordered Pen [place], 29 G x 12.7 mm BD Ultra [...] 12/15/20 12:56:00 EDT, Route to Pharmacy Electronically, [facility]/pharmacy #[id number], 183, cm, 12/15/20 11:23:00 EDT, Height, [...] 5 Refills, Maintenance, 12/15/20 12:38:00 EDT, Solution, [facility]/pharmacy #[id number], Partial fill upon patient request [...]
--- OUTSIDE RECORDS SUMMARY | 2023-10-18 20:34 | XMS_ITS | Continuity of Care Document ---
Author Name Unknown Organization [facility] Address [address] [place] [address]- Care Team Providers Care Reinsurance Claims Analyst Name Role Phone Roberto CH, Efra Miramontes Primary Care Physician Encounter [facility] Date(s): 11/08/20 - 12/08/20 [facility] [address] [place] [address]- Allergies, Adverse Reactions, Alerts Substance Reaction Severity Status NKA Active Immunizations Given and Recorded Vaccine Date Status Refusal Reason influenza virus vaccine, inactivated 06/21/20 Give n [...] acel(Tdap) 7 03/05/11 Given 1Result Comment: [07/31/2018] [facility]# [id number] 2Result Comment: [08/26/2015] done at [facility] 3Admin Note: VIM 03/17/12 4Admin Note: VIM 04/10/11 5Admin Note: VIS GIVEN 04/10/13 6Admin Note: vis given dated 06/21/09 7Admin Note: VIM 08/03/08 Medications albuterol CFC free 90 mcg/inh inhalation aerosol 1, puffs, Inhalation, 4 times a day, PRN, # 18 Gm, Refills 0, Tot. Refills 0, Maintenance, 12/02/2009:56:00 EDT, Aerosol, Route to Pharmacy Electronically, [id number], [facility]/pharmacy #[id number], 180.3, cm, 11/12/19 15:07:00 EST, He... Start Date: 12/03/19 Status: Ordered aspirin 81 mg oral delayed release tablet 81 mg, 1, tablet, By Mouth, Daily, # 90 tablet, Refills 0, Maintenance, 01/20/18 13:33:45 EDT Start Date: 01/20/18 Status: Ordered buprenorphine-naloxone 8 mg-2 mg sublingual film See Instructions, 1.5 tabs in AM and 1 tab at night Sublingual, 0 Refills, Maintenance, 07/10/20 12:48:00 EDT, Film Start Date: 07/10/20 Status: Ordered Compression Stockings See Instructions, # 2 each, Maintenance, surgical, calf length 20-30 mm Hg, 11/12/19 10:03:00 EST, Compound Start Date: 11/12/19 Status: Ordered folic acid 1 mg oral tablet 1 mg, 1, tablet, By Mouth, 2 times a day, Take with food, # 60 tablet, Refills 5, Tot. Refills 5, Maintenance, 07/02/16 16:06:12, Route to Pharmacy Electronically, [id number], [facility] #[facility] Start Date: [...] hyperglycemia; DM uncontrolled ( E11.65 and R73.9), 11/16/18 9:35:53 EST, Compound Start Date: 08/01/18 Status: [...] 10/27/20 10:24:00 EST, Route to Pharmacy Electronically, [facility]/pharmacy #[id number], Partial fill upon patient request if the prescription is for a schedule II... Start Date: 10/27/20 Status: Ordered Insulin Syringe, BD Ultra-Fine 0.3 cc 31 G x 8 mm (516in) See Instructions, # 100 each, Refills 1, Tot. Refills 1, Maintenance, as directed for type 2 diabetes., 05/21/19 12:51:57 EDT, Compound Start Date: 05/21/19 Status: Ordered Lantus Solostar Pen 100 units/mL subcutaneous solution = 40 units, Subcutaneous Injection, 2 times a day, # 15 mL, 5 Refills, Maintenance, 10/27/20 10:22:00 EST, Solution, [facility]/pharmacy #[id number], 183, cm, 10/27/20 8:41:00 EST, Height, 119, kg, 09/23/20 17:06:00 EST, Dry Weight Start Date: 10/27/20 Status: Ordered levothyroxine 0.112 mg oral tablet 2 tablet = 224 mcg, By Mouth, Daily, # 60 tablet, 5 Refills, Maintenance, 10/27/20 10:22:00 EST, Tablet, [facility]/pharmacy #[id number], 183, cm, 10/27/20 8:41:00 EST, Height, 119, kg, 09/23/20 17:06:00 EST, DryWeight Start Date: 10/27/20 Stop Date: 04/25/21 Status: Ordered lisinopril 20 mg oral tablet 40 mg, 2, tablet, By Mouth, Daily, # 60 tablet, Refills 5, Tot. Refills 5, Maintenance, 10/27/20 10:22:00 EST, [id number] fill upon patient request if the prescription is for a schedule II opioid drug... Start Date: 10/27/20 Status: Ordered MiraLax oral powder for reconstitution = 17 Gm, By Mouth, Daily, dissolve in water before taking, # 527 Gm, 5 Refills, Maintenance, 10/27/20 10:23:00 EST, REC Powder, [facility]/pharmacy #[id number], 17 Gm By Mouth Daily,Instr:dissolve in water beforetaking, 183, cm, 10/27/20 8:41:00 EST, Height, 119,... Start Date: 10/27/20 Status: Ordered omeprazole 20 mg oral enteric coated capsule 1 capsule = 20 mg, By Mouth, Daily, # 30 capsule, 5 Refills, Maintenance, 10/27/20 10:22:00 EST, ECCapsule, [facility]/pharmacy #[id number], 183, cm, 10/27/20 8:41:00 EST, Height, 119, kg, 09/23/20 17:06:00 EST,Dry Weight Start Date: 10/27/20 Status: Ordered Pen [place], 29 G x 12.7 mm BD Ultra Fine See Instructions, # 1 box, Refills 3, Tot. Refills 3, Maintenance, use with NOvolog Pen injection twice daily, 06/18/19 9:42:43 EDT, Compound Start Date: 06/18/19 Status: Ordered tamsulosin 0.4 mg oral capsule 0.4 mg, 1, capsule, By Mouth, Daily, # 30 capsule, Refills 11, Tot. Refills 11, Maintenance, 10/27/20 10:23:00 EST, Route to Pharmacy Electronically, [facility]/pharmacy #[id number], 183, cm, 10/27/20 8:41:00 EST, Height, 119, kg, 09/23/20 17:06:00 EST, Dry Weight Start Date: 10/27/20 Status: Ordered Walker See Instructions, # 1 [...]
--- OUTSIDE RECORDS SUMMARY | 2023-10-18 20:34 | XMS_ITS | Continuity of Care Document ---
Author Name Unknown Organization [facility] Address [address], [address], [address] [place] [id number]- Care Team Providers Care Pulmonology Physician Name Role Phone Efra Mejia MD Primary Care Physician [phone] Encounter [facility] ACCT R [id number] Date(s): 05/08/22 - 06/07/22 [facility] [address], [address], [address] [place] [address]- Attending Physician: Bobby Sandoval Admitting Physician: AdmBobby [...] 23-valent vaccine 8 04/01/12 Given 1Result Comment: [facility]#[id number] 2Result Comment: [07/31/2018] [facility]# [id number] 3Result Comment: [08/26/2015] done at [facility] 4Admin Note: VIM 03/17/12 5Admin Note: VIM 04/10/11 6Admin Note: VIM 08/03/08 7Admin Note: VIS GIVEN 04/10/13 8Admin Note: vis given dated 06/21/09 Medications ARIPiprazole 5 mg oral tablet 5 mg, 1, tablet, By Mouth, Daily, # 90 tablet, Refills 1, Tot. Refills 1, Maintenance, 06/05/22 10:07:00 EDT, Route to Pharmacy Electronically, [facility]/pharmacy #[id number], Partial fill upon patient request if the prescription is for a schedule II opioid drug.... Start Date: 06/05/22 Stop Date: 12/02/22 Status: Ordered buprenorphine-naloxone 8 mg-2 mg sublingual film See Instructions, 1.5 films sublingual in AM; 1 film sublingual in PM [id number], # 75 film, 1 Refills, Maintenance, 01/23/22 12:38:00 EDT, Film, [facility]/pharmacy #[id number], Partial fill upon patient request if the prescription is for a schedule II opioid drJean. Start Date: 01/23/22 Status: Ordered citalopram 40 mg oral tablet 40 mg, 1, tablet, By Mouth, Daily, Take with food., # 90 tablet, Refills 1, Tot. Refills 1, Maintenance, 06/05/22 10:06:00 EDT, Route to Pharmacy Electronically, [facility]/pharmacy #[id number], 181.5, cm, 05/08/22 8:39:00 EDT, Height, 105, kg, 09/26/21 3:23:00 ES... Start Date: 06/05/22 Stop Date: 12/02/22 Status: Ordered donepezil 10 mg oral tablet 10 mg, 1, tablet, By Mouth, Daily at bedtime, # 90 tablet, Refills 1, Tot. Refills 1, Maintenance, 05/08/22 9:47:00 EDT, Route to Pharmacy Electronically, [facility]/pharmacy #[id number], Partial fill upon patient request if the prescription is for a schedule II o... Start Date: 05/08/22 Stop Date: 11/04/22 Status: Ordered ferrous sulfate 325 mg oral enteric coated tablet 325 mg, By Mouth, Daily, Refills 3, Maintenance, 07/19/21 10:08:00 EDT, Partial fill upon patient request if the prescription is for a schedule II opioid drug. Start Date: 07/19/21 Status: Ordered fluticasone 50 mcg/inh nasal spray 2 sprays, Nares, Both, Daily in AM, 0 Refills, Maintenance, 07/14/21 14:22:00 EDT, [place], Partial fill upon patient request if the [...] 03/22/22 15:36:00 EDT, Route to Pharmacy Electronically, [facility]/pharmacy #[id number], Partial fill upon patient request if the prescription is for a schedule II... Start Date: 03/22/22 Status: Ordered Iodosorb 0.9% topical gel See Instructions, Continue wound care with iodosorb gel and 2x2 dressing daily to small wound Betadine pain to incision, # 1 each, 0 Refills, Maintenance, 09/28/21 18:43:00 EST, [facility]/pharmacy #[id number], Partial fill upon patient request if the prescripti... Start Date: 09/28/21 Status: Ordered levothyroxine 0.112 mg oral tablet 2 tablet = 224 mcg, By Mouth, Daily, # 60 tablet, 2 Refills, Maintenance, 03/22/22 13:10:00 EDT, Tablet, [facility]/pharmacy #[id number], 181.5, cm, 09/28/21 12:39:00 EST, Height, 105, kg, 09/26/21 3:23:00 EST, Dry Weight Start Date: 03/22/22 Stop Date: 06/20/22 Status: Ordered lidocaine-prilocaine 2.5%-2.5% topical cream = 15 Gm, Topically, Once, Apply small amount to area of injection site one hour prior to injection,# 15 Gm, 0 Refills, Soft Stop, 06/05/22 10:10:00 EDT, [facility]/pharmacy #[id number], Partial fill upon patientrequest if the prescription is for a schedule II op... Start Date: 06/05/22 Status: Ordered lidocaine-prilocaine 2.5%-2.5% topical cream = 15 Gm, Topically, Once, apply thickly to small area of skin at injection location on abdomen one hour before scheduled injection. DO NOT WIPE OFF, cover with bandaid. Bring cream to scheduled injection appointment., # 15 Gm, 0 Refills, Soft Stop,... Start Date: 05/07/22 Status: Ordered melatonin 5 mg oral tablet 1 tablet = 5 mg, By Mouth, Daily at bedtime, PRN for insomnia, # 60 tablet, 0 Refills, Maintenance,07/13/21 22:12:00 EDT, Tablet, Partial fill upon patient request if the prescription is for a schedule II opioid drug. Start Date: 07/13/21 Status: Ordered nystatin topical 311176 u/gm powder See Instructions, apply to stump 3 x day, # 120 Gm, 5 Refills, Maintenance, 07/06/21 12:35:00 EDT, Powder, [facility]/pharmacy #[id number], Partial fill upon patient request if the prescription is for a schedule II opioid drug., apply to stump 3 x day, 180, cm,... Start Date: 07/06/21 Status: Ordered omeprazole 20 mg oral enteric coated capsule 1 capsule = 20 mg, By Mouth, Daily, # 30 capsule, 2 Refills, Maintenance, 03/22/22 13:10:00 EDT, ECCapsule, [facility]/pharmacy #[id number], 181.5, cm, 09/28/21 12:39:00 EST, Height, 105, kg, 09/26/21 3:23:00 EST, Dry Weight Start Date: 03/22/22 Status: Ordered prazosin 2 mg oral capsule 1 capsule = 2 mg, By Mouth, Daily at bedtime, # 90 capsule, 1 Refills, Maintenance, 06/05/22 10:07:00 EDT, Capsule, [facility]/pharmacy #[id number], Partial fill upon patient request if the prescription is for a schedule II opioid drug., 181.5, cm, 05/08/22 8:39:0... Start Date: 06/05/22 Stop Date: 12/02/22 Status: Ordered ramelteon 8 mg oral tablet 1 tablet = 8 mg, By Mouth, Daily at bedtime, # 90 tablet, 1 Refills, Maintenance, 06/05/22 10:07:00EDT, Tablet, [facility]/pharmacy #[id number], Partial fill upon patient request if the prescription is for a schedule II opioid drug., 181.5, cm, 05/08/22 8:39:00 E... Start Date: 06/05/22 Stop Date: 12/02/22 Status: Ordered Sublocade 300 mg/1.5 mL subcutaneous solution, extended release = 300 mg, Subcutaneous Infusion, Every 28 days, [id number], # 1 kit, 0 Refills, Maintenance, 06/05/22 10:09:00 EDT, [facility]/pharmacy #[id number], Partial fill upon patient request if the prescription is for a schedule II opioid drug., 181.5, cm, 05/08/22 8:39:00... Start Date: 06/05/22 Stop Date: 06/06/22 Status: Ordered Suboxone 8 mg-2 mg Sublingual Film See Instructions, 1.5 films sublingual in AM, 1 film sublingual in PM dissolve under the tongue, # 53 film, 0 Refills, Maintenance, 04/09/22 14:34:00 EDT, [facility]/pharmacy #[id number], Partial fill upon patient request if the prescription is for a schedule II... Start Date: 04/09/22 Status: Ordered tamsulosin 0.4 mg oral capsule 0.4 mg, 1, capsule, By Mouth, Daily, # 90 capsule, Refills 3, Tot. Refills 3, Maintenance, 07/06/2111:55:00 EDT, Route to Pharmacy Electronically, [facility]/pharmacy #[id number], Partial fill upon patient request if the prescription is for a schedule II opioid d... 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 2seen by ortho 10/04 and 01/02 Social History Social History Type Response Tobacco Other: 3 cigars brenden y. Sex Care Team Personnel Name: Efra Mejia MD Address: [address] [place] [address]
--- OUTSIDE RECORDS SUMMARY | 2023-10-18 20:34 | XMS_ITS | Continuity of Care Document ---
Author Name Unknown Organization [facility] Address [address] [place] [address]- Care Team Providers Care Manager Transfusion Name Role Phone Efra Mejia MD Primary Care Physician Encounter [facility] Date(s): 04/26/20 - 05/26/20 [facility] [address] [place] [address]- [facility] Allergies, Adverse Reactions, Alerts Substance Reaction Severity [...] acel(Tdap) 7 03/05/11 Given 1Result Comment: [07/31/2018] [facility]# [id number] 2Result Comment: [08/26/2015] done at [facility] 3Admin Note: VIM 03/17/12 4Admin Note: VIM 04/10/11 5Admin Note: VIS GIVEN 04/10/13 6Admin Note: vis given dated 06/21/09 7Admin Note: VIM 08/03/08 Medications albuterol CFC free 90 mcg/inh inhalation aerosol 1, puffs, Inhalation, 4 times a day, PRN, # 18 Gm, Refills 0, Tot. Refills 0, Maintenance, 12/02/2009:56:00 EDT, Aerosol, Route to Pharmacy Electronically, [id number], [facility]/pharmacy #[id number], 180.3, cm, 11/12/19 15:07:00 EST, He... [...] 1 Refills, Maintenance, 11/12/19 10:02:00 EST, Gel, [facility]/pharmacy #[id number], 180.3, cm, 11/12/19 8:43:00 EST, Height, [...] Maintenance, 07/02/16 16:06:12, Route to Pharmacy Electronically, [id number], [facility] #36 Start Date: 07/02/16 Stop Date: 4/15/17 Status: Ordered Freestyle Lancets See Instructions, # [...] 05/20/20 Stop Date: 11/16/20 Status: Ordered gabapentin 600 mg oral tablet 1 tablet = 600 mg, By Mouth, 3 times a day, # 90 tablet, 5 Refills, Maintenance, 10/22/19 10:55:00 EST, Tablet, [facility]/pharmacy #[id number], 180.3, cm, 10/22/19 10:14:00 EST, Height, 118.5, kg, 05/12/19 10:33:00 EDT, Dry Weight Start Date: 10/22/19 Status: Ordered ibuprofen 800 mg oral tablet 800 mg, 1, tablet, By Mouth, Every 8 hours, PRN, # 90 tablet, Refills 0, Tot. Refills 0, Maintenance, as needed for pain, 04/10/19 17:13:55 EDT, Route to Pharmacy Electronically, [id number], [facility] #36 Start Date: 04/10/19 Stop Date: 05/10/19 Status: Ordered Insulin Syringe, BD Ultra-Fine 0.3 cc 31 G x 8 mm (16in) See Instructions, # 100 each, Refills 1, Tot. Refills 1, Maintenance, as directed for type 2 diabetes., 05/21/19 12:51:57 EDT, Compound Start Date: 05/21/19 Status: Ordered lactulose 10 gm/15 ml oral syrup 60 mL = 40 Gm, By Mouth, Daily, PRN as needed for constipation, for 3 days, # 180 mL, 0 Refills, Acute 05/29/20 17:49:00 EDT, 05/26/20 17:49:00 EDT, Syrup, [facility]/pharmacy #[id number], 60 mL By Mouth Daily,x3days,PRN:as needed for constipation, 180.3, cm, ... Start Date: 05/26/20 Stop Date: 05/29/20 Status: Ordered Lantus Solostar Pen 100 units/mL subcutaneous solution = 60 units, Subcutaneous Injection, 2 times a day, # 15 mL, 5 Refills, Maintenance, 01/19/20 15:07:00 EDT, Solution, [facility]/pharmacy #[id number], 180.3, cm, 01/19/20 14:07:00 EDT, Height, 120.7, kg, 11/03/19 13:31:00 EST, Dry Weight Start Date: 01/19/20 Status: Ordered levothyroxine 0.112 mg oral tablet 2 tablet = 224 mcg, By Mouth, Daily, # 60 tablet, 5 Refills, Maintenance, 06/18/19 9:13:12 EDT, Tablet Start Date: 06/18/19 Stop Date: 12/15/19 Status: Ordered lisinopril 20 mg oral tablet 20 mg, 1, tablet, By Mouth, Daily, # 90 tablet, Refills 3, Tot. Refills 3, Maintenance, 01/20/18 13:36:03 EDT, Route to Pharmacy Electronically, [id number], [facility] #[facility] Start Date: 01/20/18 Stop Date: 01/15/19 Status: Ordered Mavyret By Mouth, Daily, 0 Refills, Maintenance, 05/04/20 11:57:00 EDT Start Date: 05/04/20 Status: Ordered Mavyret 100 mg-40 mg oral tablet 3 tablet, By Mouth, Daily, x 8 weeks, # 84 tablet, 1 Refills, Maintenance, 02/05/20 14:18:00 EDT, Tablet, [facility], 3 tablet By Mouth Daily,Instr:x 8 weeks, 180.3, cm, 01/19/20 14:07:00 EDT, Height, 120.7, kg, 11/03/19 13:31:00 EST,... Start Date: 02/05/20 Status: Ordered metFORMIN 1000 mg oral tablet [...] before taking Start Date: 07/04/17 Status: Ordered NuLYTELY with Flavor Packs oral powder for reconstitution 240 mL, By Mouth, Every 10 minutes, # 1 each, 0 Refills, Maintenance, 06/19/19 7:23:25 EDT, REC Powder, test date 10/16/19, 240 mL By Mouth Every 10 minutes Start Date: 06/19/19 Status: Ordered omeprazole 20 mg oral enteric coated capsule 1 capsule = 20 mg, By Mouth, Daily, # 30 capsule, 5 Refills, Maintenance, 05/26/20 17:50:00 EDT, ECCapsule, [facility]/pharmacy #[id number], 180.3, cm, 05/06/20 16:07:00 EDT, Height, 120.7, kg, 11/03/19 13:31:00EST, Dry Weight Start Date: 05/26/20 Status: Ordered Pen [place], 29 G x 12.7 mm BD Ultra [...]
--- OUTSIDE RECORDS SUMMARY | 2023-10-18 20:34 | XMS_ITS | Continuity of Care Document ---
Author Name Unknown Organization [facility] Address [address] [place] [address]- Care Team Providers Care Night Shift Manager Name Role Phone Roberto CH, Efra Miramontes Primary Care Physician Encounter [facility] Date(s): 02/14/23 - 03/16/23 [facility] [address] [place] [address]- Allergies, Adverse Reactions, Alerts No Known Allergies Immunizations Given and Recorded Vaccine Date Status Refusal Reason SARS-CoV-2 mRNA ([id number]) vax 04/27/22 Recorded influenza virus vaccine, inactivated 1 07/06/21 Gi raheem influenza virus vaccine, inactivated 06/21/20 Give n influenza virus vaccine, inactivated 2 07/31/18 Gi raheem influenza virus vaccine, inactivated 07/05/16 Give n influenza virus vaccine, inactivated 3 08/01/15 Re corded influenza virus vaccine, inactivated 05/18/15 Nacho rded influenza virus vaccine, inactivated 4 08/13/12 Gi raheem influenza virus vaccine, inactivated 5 08/16/11 Gi rhaeem zoster vaccine, inactivated 06/11/21 Recorded SARS-CoV-2 (COVID-19) mRNA BNT-162b2 vac 06/11/21 Recorded SARS-CoV-2 (COVID-19) mRNA BNT-162b2 vac 12/04/20 Recorded SARS-CoV-2 (COVID-19) mRNA BNT-162b2 vac 11/13/20 Recorded tetanus/diphtheria/pertussis, acel(Tdap) 05/07/21 Given tetanus/diphtheria/pertussis, acel(Tdap) 6 03/05/11 Given Influenza Virus Vaccine (oldterm) 06/08/19 Recorde d Fluarix (oldterm) 7 08/19/13 Given pneumococcal 23-valent vaccine 8 04/01/12 Given 1Result Comment: [facility]#[id number] 2Result Comment: [07/31/2018] [facility]# [id number] 3Result Comment: [08/26/2015] done at [facility] 4Admin Note: VIM 03/17/12 5Admin Note: VIM 04/10/11 6Admin Note: VIM 08/03/08 7Admin Note: VIS GIVEN 04/10/13 8Admin Note: vis given dated 06/21/09 Medications ARIPiprazole 5 mg oral tablet 5 mg, 1, tablet, By Mouth, Daily, # 90 tablet, Refills 1, Tot. Refills 1, Maintenance, 03/01/23 10:12:00 EDT, Route to Pharmacy Electronically, [facility]/pharmacy #[id number], Partial fill upon patient request [...] 10/11/22 12:01:00 EST, Route to Pharmacy Electronically, [facility]/pharmacy #[id number], Partial fill upon patient request [...] days, # 14 tablet, 0 Refills, Acute 03/21/23 11:30:00 EDT, 03/07/23 11:30:00 EDT, Tablet, [facility]/pharmacy #[id number], dose change, 181.5, cm, 03/07/23 10:11:00 EDT,Height, 103, kg, 10/26/22 11:39:00 EST, Dry Weight Start Date: 03/07/23 Stop Date: 03/21/23 Status: Ordered fluticasone 50 mcg/inh nasal spray 2 sprays, Nares, Both, Daily in AM, 0 Refills, Maintenance, 07/14/21 14:22:00 EDT, [place], Partial fill upon patient request if the [...] times a day, # 60 capsule, Refills 0, Tot. Refills 0, Maintenance, 01/30/23 16:37:00 EDT, Route to Pharmacy Electronically, [facility]/pharmacy #[id number], override needed for lost prescription, thanks., 181.5, cm, 10/26/22 11:39:0... Start Date: 01/30/23 Status: Ordered levothyroxine 0.112 mg oral tablet 2 tablet = 224 mcg, By Mouth, Daily, # 60 tablet, 2 Refills, Maintenance, 12/19/22 16:00:00 EDT, Tablet, [facility]/pharmacy #[id number], 181.5, cm, 10/26/22 11:39:00 EST, [...] stump, # 30 Gm, 0 Refills, Acute 03/21/23 11:31:00 EDT, 03/07/23 11:31:00 EDT, Ointment, [id number], Partial fill upon patient request if the prescription is for a... Start Date: 03/07/23 Stop Date: 03/21/23 Status: Ordered nystatin topical 387334 u/gm ointment 1 application, Topically, 3 times a day, for 14 days, apply to R stump as needed for skin rash, # 120 Gm, 3 Refills, Acute 05/02/23 11:31:00 EDT, 03/07/23 11:31:00 EDT, Ointment, [id number], Partial fill upon patient request if the prescriptio... Start Date: 03/07/23 Stop Date: 05/02/23 Status: Ordered nystatin topical 462018 u/gm powder See Instructions, apply to stump [...] capsule, 1 Refills, Maintenance,03/01/23 10:12:00 EDT, Capsule, [facility]/pharmacy #[id number], Partial fill upon patient request if the prescription is for a schedule II opioid drug., 181.5, cm,... Start Date: 03/01/23 Stop Date: 08/28/23 Status: Ordered ramelteon 8 mg oral tablet 1 tablet = 8 mg, By Mouth, Daily at bedtime, # 90 tablet, 1 Refills, Maintenance, 03/01/23 10:13:00EDT, Tablet, [facility]/pharmacy #[id number], Partial fill upon patient request [...] in AM, 1 film sublingual in PM [id number], # 75 film, 1 Refills, Maintenance, 03/01/23 10:12:00 EDT, [facility]/pharmacy #[id number], 1.5 films sublingual in AM, 1 film sublingual in PM ; [id number], 181.5, cm, 02/05/23 12:41... Start Date: 03/01/23 Status: Ordered tamsulosin 0.4 mg oral capsule 0.4 mg, 1, capsule, By Mouth, Daily, # 90 capsule, Refills 3, Tot. Refills 3, Maintenance, 12/20/2315:00:00 EDT, Route to Pharmacy Electronically, [facility]/pharmacy #[id number], Partial fill upon patient request [...] (disorder) Confirmed Active Seborrheic dermatitis Confirmed Active Tobacco dependence Confirmed Active 1Dx'd while on chronic opiate tx. 2seen by ortho 10/04 and 01/02 Social History Social History Type Response Tobacco Other: 3 cigars brenden y. Sex Patient Care team information Care Team Personnel Name: Cayla Herrera RN Position: [facility] ED RN W/OE and Tasks Member Role: Primary Care Nurse Name: Alka Lee RN Position: [facility] RN Member Role: Primary Care Nurse Name: Jaleel Lo RN Position: [facility] RN Member Role: Primary Care Nurse Name: Ivy Smith RN Position: [facility] RN Member Role: Primary Care Nurse Name: Efra Mejia MD Position: [facility] Physician - Primary Care Member Role: PCP Address: Address: [address] [place] [address] Name: Devorah Johnson RN Position: [facility] RN Member Role: Primary Care Nurse Name: Dustin Chavez RN Position: [facility] RN Member Role: Primary Care Nurse Name: Litzy Weinberg RN Position: [facility] RN Member Role: Primary Care Nurse Name: Melanie Garay Position: [facility] RN Member Role: Primary Care Nurse Name: Michelle Akbar [place] Position: [facility] RN Member Role: Primary Care Nurse Name: Saundra Gonzalez Position: [facility] RN Member Role: Primary Care Nurse Name: Sofía Moreno RN Position: [facility] RN Member Role: Primary Care Nurse Name: Sary Tong RN Position: [facility] RN Member Role: Primary Care Nurse Name: Sophia Lomas RN Position: [facility] RN Member Role: Primary Care Nurse Name: Danielito Woo RN Position: [facility] Wine Steward/Stewardess Member Role: Primary Care Nurse Care Team Related Persons Name: ANGELOTINY Address: home [address], [place] Name: FERNIE CUMMINS Address: home [address], [place] Name: TINY CUMMINS Address: [address] [place] [address]
--- OUTSIDE RECORDS SUMMARY | 2023-10-18 20:34 | XMS_ITS | Continuity of Care Document ---
Author Name Unknown Organization [facility] Address [address] [place] [address]- Care Team Providers Care Application Support Analyst Name Role Phone Efra Mejia MD Primary Care Physician Encounter [facility] Date(s): 05/27/23 - 06/26/23 [facility] [address] [place] [address]- Allergies, Adverse Reactions, Alerts No Known Allergies Immunizations Given and Recorded Vaccine Date Status Refusal Reason SARS-CoV-2 mRNA ([id number]) vax 04/27/22 Recorded influenza virus vaccine, inactivated [...] 23-valent vaccine 8 04/01/12 Given 1Result Comment: [facility]#[id number] 2Result Comment: [07/31/2018] [facility]# [id number] 3Result Comment: [08/26/2015] done at [facility] 4Admin Note: VIM 03/17/12 5Admin Note: VIM 04/10/11 6Admin Note: VIM 08/03/08 7Admin Note: VIS GIVEN 04/10/13 8Admin Note: vis given dated 06/21/09 Medications ARIPiprazole 5 mg oral tablet 5 mg, 1, tablet, By Mouth, Daily, # 90 tablet, Refills 1, Tot. Refills 1, Maintenance, 03/01/23 10:12:00 EDT, Route to Pharmacy Electronically, [facility]/pharmacy #[id number], Partial fill upon patient request if the prescription is for a schedule II opioid drug.... Start Date: 03/01/23 Stop Date: 08/28/23 Status: Ordered citalopram 40 mg oral tablet 40 mg, 1, tablet, By Mouth, Daily, Take with food., # 90 tablet, Refills 1, Tot. Refills 1, Maintenance, 06/25/23 10:14:00 EDT, Route to Pharmacy Electronically, [facility][id number], 181.5, cm, 06/06/23 16:27:00 EDT, Height, 103, kg, 10/26/22 11:39:00... Start Date: 06/25/23 Stop Date: 12/22/23 Status: Ordered donepezil 10 mg oral tablet 10 mg, 1, tablet, By Mouth, Daily at bedtime, # 90 tablet, Refills 2, Tot. Refills 2, Maintenance, 10/11/22 12:01:00 EST, Route to Pharmacy Electronically, [facility]/pharmacy #[id number], Partial fill upon patient request if [...] AM, 0 Refills, Maintenance, 07/14/21 14:22:00 EDT, [place], Partial fill upon patient request if the [...] 03/27/23 17:30:00 EDT, Route to Pharmacy Electronically, [facility]/pharmacy #[id number], override needed for lost prescription, thanks., 181.5, cm, 03/07/23 10:11:0... Start Date: 03/27/23 Status: Ordered levothyroxine 0.112 mg oral tablet 2 tablet = 224 mcg, By Mouth, Daily, # 60 tablet, 2 Refills, Maintenance, 03/27/23 12:47:00 EDT, Tablet, [facility]/pharmacy #[id number], 181.5, cm, 03/07/23 10:11:00 EDT, Height, [...] Start Date: 07/13/21 Status: Ordered nystatin topical 297049 u/gm powder See Instructions, apply to stump 3 x day, # 120 Gm, 5 Refills, Maintenance, 04/23/23 15:43:00 EDT, Powder, [facility]/pharmacy #[id number], Partial fill upon patient request if the prescription is for a schedule II opioid drug., apply to stump 3 x day, 181.5, cm... Start Date: 04/23/23 Status: Ordered nystatin topical [id number] u/gm powder See Instructions, apply to stump 3 x day, # 120 Gm, 5 Refills, Maintenance, 07/06/21 12:35:00 EDT, Powder, [facility]/pharmacy #[id number], Partial fill upon patient request if the prescription is for a schedule II opioid drug., apply to stump 3 x day, 180, cm,... Start Date: 07/06/21 Status: Ordered omeprazole 20 mg oral enteric coated capsule 1 capsule = 20 mg, By Mouth, Daily, # 30 capsule, 5 Refills, Maintenance, 01/30/23 13:42:00 EDT, ECCapsule, [facility]/pharmacy #[id number], 181.5, cm, 10/26/22 11:39:00 EST, Height, 103, kg, 10/26/22 11:39:00 EST, Dry Weight Start Date: 01/30/23 Status: Ordered prazosin 2 mg oral capsule 1 capsule = 2 mg, By Mouth, Daily at bedtime, dose reduction, # 90 capsule, 1 Refills, Maintenance,06/25/23 10:14:00 EDT, Capsule, [facility]/pharmacy #[id number], Partial fill upon patient request if the prescription is for a schedule II opioid drug., 181.5, cm,... Start Date: 06/25/23 Stop Date: 12/22/23 Status: Ordered ramelteon 8 mg oral tablet 1 tablet = 8 mg, By Mouth, Daily at bedtime, # 90 tablet, 1 Refills, Maintenance, 06/25/23 10:14:00EDT, Tablet, [facility]/pharmacy #[id number], Partial fill upon patient request if [...] film, 0 Refills, Maintenance, 06/25/23 10:13:00 EDT, [facility]/pharmacy #[id number], [id number], 1.5 films sublingual in AM, 1 film sublingual in PM, 181.5, cm, 06/06/23 16:27:00 EDT, .. Start Date: 06/25/23 Status: Ordered tamsulosin 0.4 mg oral capsule 0.4 mg, 1, capsule, By Mouth, Daily, # 90 capsule, Refills 3, Tot. Refills 3, Maintenance, 12/20/2315:00:00 EDT, Route to Pharmacy Electronically, [facility]/pharmacy #[id number], Partial fill upon patient request if the [...] Team Personnel Name: Cayla Herrera RN Position: [facility] ED RN W/OE and Tasks Member Role: Primary Care Nurse Name: Alka Lee RN Position: [facility] RN Member Role: Primary Care Nurse Name: Jaleel Lo RN Position: S RN Member Role: Primary Care Nurse Name: Ivy Smith RN Position: [facility] RN Member Role: Primary Care Nurse Name: Efra Mejia MD Position: [facility] Physician - Primary Care Member Role: PCP Address: Address: [address] [place] [id number] Name: Devorah Johnson RN Position: [facility] RN Member Role: Primary Care Nurse Name: Dustin Chavez RN Position: [facility] RN Member Role: Primary Care Nurse Name: Litzy Weinberg RN Position: [facility] RN Member Role: Primary Care Nurse Name: Melanie Garay Position: [facility] RN Member Role: Primary Care Nurse Name: Yoselyn Patrick RN Position: [facility] RN Member Role: Primary Care Nurse Name: Michelle Akbar [place] Position: [facility] RN Member Role: Primary Care Nurse Name: Saundra Gonzalez Position: [facility] RN Member Role: Primary Care Nurse Name: Sofía Moreno RN Position: [facility] RN Member Role: Primary Care Nurse Name: Sary Tong RN Position: [facility] RN Member Role: Primary Care Nurse Name: Danielito Woo RN Position: [facility] [employer] Member Role: Primary Care Nurse Care Team Related Persons Name: PHILIPTINY CORRAL Address: home [address], [place] Name: FERNIE CUMMINS Address: home [address], [place] Name: TINY CUMMINS Address: home [address], [place]
--- OUTSIDE RECORDS SUMMARY | 2023-10-18 20:34 | XMS_ITS | Continuity of Care Document ---
Author Name Unknown Organization [facility] Address [address] [facility], [address], [address] [place] [id number]- Care Team Providers Care Clinical Evaluator Name Role Phone Efra Mejia MD Primary Care Physician [phone] Encounter [facility] Date(s): 08/29/20 - 09/28/20 [facility] [address], [address], [address] [place] [id number] Attending Physician: Bobby Sandoval Admitting Physician: AdmtrBobby Referring Physician: Admtr, Ar8 [...] acel(Tdap) 7 03/05/11 Given 1Result Comment: [07/31/2018] [facility]# [id number] 2Result Comment: [08/26/2015] done at [facility] 3Admin Note: VIM 03/17/12 4Admin Note: VIM 04/10/11 5Admin Note: VIS GIVEN 04/10/13 6Admin Note: vis given dated 06/21/09 7Admin Note: VIM 08/03/08 Medications albuterol CFC free 90 mcg/inh inhalation aerosol 1, puffs, Inhalation, 4 times a day, PRN, # 18 Gm, Refills 0, Tot. Refills 0, Maintenance, 12/02/2009:56:00 EDT, Aerosol, Route to Pharmacy Electronically, [id number], [facility]/pharmacy #[id number], 180.3, cm, 11/12/19 15:07:00 EST, He... [...] Maintenance, 07/02/16 16:06:12, Route to Pharmacy Electronically, [id number], [facility] #[facility] Start Date: [...] 05/20/20 Stop Date: 11/16/20 Status: Ordered gabapentin 100 mg oral capsule See Instructions, 1 capsule By Mouth 3 times a day for 4d, then 2 capsules twice daily x 4 days, then 2 caps 3 times daily1, # 160 capsule, Refills 0, Tot. Refills 0, Maintenance, 09/02/20 16:13:00 EST, Instructions Replace Required Details, Route to... Start Date: 09/02/20 Status: Ordered Insulin Syringe, BD Ultra-Fine 0.3 cc 31 G x 8 mm (16in) See Instructions, # 100 each, Refills 1, Tot. Refills 1, Maintenance, as directed for type 2 diabetes., 05/21/19 12:51:57 EDT, Compound Start Date: 05/21/19 Status: Ordered Lantus Solostar Pen 100 units/mL subcutaneous solution = 40 units, Subcutaneous Injection, 2 times a day, # 15 mL, 5 Refills, Maintenance, 09/06/20 13:05:00 EST, Solution, [id number], 183, cm, 07/12/20 14:47:00 EDT, Height, 119, kg, 07/09/20 0:11:00 EDT, Dry Weight Start Date: 09/06/20 Status: Ordered levothyroxine 0.112 mg oral tablet 2 tablet = 224 mcg, By Mouth, Daily, # 60 tablet, 5 Refills, Maintenance, 07/10/20 12:51:00 EDT, Tablet, [id number], 183, cm, 07/10/20 3:29:00 EDT, Height, 119, kg, 07/09/20 0:11:00 EDT, Dry Weight Start Date: 07/10/20 Stop Date: 01/06/21 Status: Ordered lisinopril 20 mg oral tablet 40 mg, 2, tablet, By Mouth, Daily, Refills 0, Maintenance, 07/10/20 12:49:00 EDT Start Date: 07/10/20 Status: Ordered Lotrimin AF 1% topical cream 1 application, Topically, 2 times a day, # 45 Gm, 0 Refills, Acute 10/03/20 13:15:00 EST, 09/26/20 13:09:00 EST, Cream, [facility], Partial fill upon patient request if the prescriptionis for a schedule II opioid drug., 1 application To... Start Date: 09/26/20 Stop Date: 10/03/20 Status: Ordered MiraLax oral powder for reconstitution = 17 Gm, By Mouth, Daily, dissolve in water before taking, # 527 Gm, 5 Refills, Maintenance, 06/21/20 14:32:00 EDT, REC Powder, [facility]/pharmacy #[id number], 17 Gm By Mouth Daily,Instr:dissolve in water beforetaking, 180.3, cm, 06/21/20 13:42:00 EDT, Height, 1... Start Date: 06/21/20 Status: Ordered MiraLax oral powder for reconstitution = 17 Gm, By Mouth, Daily, dissolve in water before taking, # 527 Gm, 1 Refills, Maintenance, 07/04/17 14:05:15, REC Powder, 17 Gm By Mouth Daily,Instr:dissolve in water before taking Start Date: 07/04/17 Status: Ordered omeprazole 20 mg oral enteric coated capsule 1 capsule = 20 mg, By Mouth, Daily, # 30 capsule, 5 Refills, Maintenance, 05/26/20 17:50:00 EDT, ECCapsule, [facility]/pharmacy #[id number], 180.3, cm, 05/06/20 16:07:00 EDT, Height, 120.7, kg, 11/03/19 13:31:00EST, Dry Weight Start Date: 05/26/20 Status: Ordered Pen [place], 29 G x 12.7 mm BD Ultra Fine See Instructions, # 1 box, Refills 3, Tot. Refills 3, Maintenance, use with NOvolog Pen injection twice daily, 06/18/19 9:42:43 EDT, Compound Start Date: 06/18/19 Status: Ordered tamsulosin 0.4 mg oral capsule 0.4 mg, 1, capsule, By Mouth, Daily, # 30 capsule, Refills 11, Tot. Refills 11, Maintenance, 07/05/20 16:10:00 EDT, Route to Pharmacy Electronically, [facility]/pharmacy #[id number], 180.3, cm, 06/21/20 13:42:00 EDT, Height, 120.7, kg, 11/03/19 13:31:00 EST, Dry W... Start Date: 07/05/20 Status: Ordered Tylenol 325 mg oral tablet 650 mg, 2, tablet, By Mouth, Every 4 hours, PRN, # 90 tablet, Refills 0, Tot. Refills 0, Acute 11/04/20 13:07:00 EST, Pain , Mild, 09/26/20 13:07:00 EST, Route to Pharmacy Electronically, [facility], Partial fill upon patient request if... Start Date: 09/26/20 Stop Date: 11/04/20 Status: Ordered Walker See Instructions, # 1 [...]
--- OUTSIDE RECORDS SUMMARY | 2023-10-18 20:34 | XMS_ITS | Continuity of Care Document ---
Author Name Unknown Organization [facility] Address [address] [place] [address]- Care Team Providers Care Tone Cabinet Assembler Name Role Phone Efra Mejia MD Primary Care Physician [phone] Encounter [facility] Date(s): 10/22/19 - 10/29/19 [facility] [address] [place] [address]- [place] Encounter Diagnosis Diabetic nephropathy(Discharge Diagnosis) - 10/22/19 Recurrent major depression in partial remission(Discharge Diagnosis) - 10/22/19 Hypothyroidism(Discharge Diagnosis) - 10/22/19 Osteoarthritis of right glenohumeral joint(Discharge Diagnosis) - 10/22/19 Opioid dependence(Discharge Diagnosis) - 10/22/19 Multiple joint pain(Discharge Diagnosis) - 10/22/19 Attending Physician: Efra Mejia MD Allergies, Adverse [...] acel(Tdap) 7 03/05/11 Given 1Result Comment: [07/31/2018] [facility]# [id number] 2Result Comment: [08/26/2015] done at [facility] 3Admin Note: VIM 03/17/12 4Admin Note: VIM 04/10/11 5Admin Note: VIS GIVEN 04/10/13 6Admin Note: vis given dated 06/21/09 7Admin Note: VIM 08/03/08 Medications aspirin 81 mg oral delayed release tablet 81 mg, 1, tablet, By Mouth, Daily, # 90 tablet, Refills 0, Maintenance, 01/20/18 13:33:45 EDT Start Date: 01/20/18 Status: Ordered fexofenadine 180 mg oral tablet [...] Maintenance, 07/02/16 16:06:12, Route to Pharmacy Electronically, [id number], [facility] Start Date: [...] 5 Refills, Maintenance, 10/22/19 10:55:00 EST, Tablet, [facility]/pharmacy #[id number], 180.3, cm, 10/22/19 10:14:00 EST, Height, 118.5, kg, 05/12/19 10:33:00 EDT, Dry Weight Start Date: 10/22/19 Status: Ordered ibuprofen 800 mg oral tablet 800 mg, 1, tablet, By Mouth, Every 8 hours, PRN, # 90 tablet, Refills 0, Tot. Refills 0, Maintenance, as needed for pain, 04/10/19 17:13:55 EDT, Route to Pharmacy Electronically, [id number], [facility] #[facility] Start Date: 04/10/19 Stop Date: 05/10/19 Status: Ordered Insulin Syringe, BD Ultra-Fine 0.3 cc 31 G x 8 mm (5/16in) See Instructions, # 100 each, Refills 1, Tot. Refills 1, Maintenance, as directed for type 2 diabetes., 05/21/19 12:51:57 EDT, Compound Start Date: 05/21/19 Status: Ordered Lantus Solostar Pen 100 units/mL subcutaneous solution = 15 units, Subcutaneous Infusion, Daily at bedtime, # 15 mL, 5 Refills, Maintenance, 07/24/19 17:51:01 EST Start Date: 07/24/19 Stop Date: 01/20/20 Status: Ordered Lantus Solostar Pen 100 units/mL subcutaneous solution = 25 units, Subcutaneous Injection, Daily at bedtime, # 15 mL, 1 Refills, Maintenance, 10/08/19 16:20:00 EST, Solution, [facility]/pharmacy #[id number], 180, cm, 10/08/19 15:20:00 EST, Height, 118.5, kg, 05/12/1910:33:00 EDT, Dry Weight Start Date: 10/08/19 Status: Ordered levothyroxine 0.112 mg oral tablet 2 tablet = 224 mcg, By Mouth, Daily, # 60 tablet, 5 Refills, Maintenance, 06/18/19 9:13:12 EDT, Tablet Start Date: 06/18/19 Stop Date: 12/15/19 Status: Ordered lisinopril 20 mg oral tablet 20 mg, 1, tablet, By Mouth, Daily, # 90 tablet, Refills 3, Tot. Refills 3, Maintenance, 01/20/18 13:36:03 EDT, Route to Pharmacy Electronically, [id number], [facility] Start Date: 01/20/18 Stop Date: 01/15/19 Status: Ordered meloxicam 7.5 mg oral tablet 1 tablet = 7.5 mg, By Mouth, Daily, Not to take with other NSAIDs, # 14 tablet, 0 Refills, Maintenance, 01/13/19 13:39:34 EDT Start Date: 01/13/19 Stop Date: 01/27/19 Status: Ordered metFORMIN 1000 mg oral tablet [...] before taking Start Date: 07/04/17 Status: Ordered Novolin N human recombinant 100 [...] Weight Start Date: 08/27/19 Status: Ordered Pen [place], 29 G x 12.7 mm BD Ultra [...] tx. 2seen by ortho 10/04 and 01/02 Diagnosis Diagnosis Type Effective Dates Health Status Clinical Service Informant Diabetic nephropathy Discharge Diagnosis 10/22/19 Recurrent major depression in partial remission Discharge Diagnosis 10/22/19 Opioid dependence Discharge Diagnosis 10/22/19 Hypothyroidism Discharge Diagnosis 10/22/19 Osteoarthritis of right glenohumeral joint Discharge Diagnosis 10/22/19 Multiple joint pain Discharge Diagnosis 10/22/19 Vital Signs Most recent to oldest [Reference Range]: 1 Height 180.3 cm (10/22/19 10:14 AM) Weight 121.81 kg (10/22/19 10:14 AM) Oxygen Saturation [94-100 %] 96 % (10/22/19 10:14 AM) Pulse Rate [55-90 bpm] 68 bpm (10/22/19 10:14 AM) Body Mass Index [18.5-24.99] 37.47 *>HHI* (10/22/19 10:14 AM) Blood Pressure [90-138/55-84 mm Hg] 136/ 82mm Hg (10/22/19 10:14 AM) Respiratory Rate [16-30 br/min] 20 br/mi n (10/22/19 10:14 AM) Blood pressure sites Arm, left (10/22/19 10:14 AM) Weight Obtained Via Patient/family state d (10/22/19 10:14 AM) Social History Social History Type Response Tobacco Other: 3 cigars brenden y. Sex
--- OUTSIDE RECORDS SUMMARY | 2023-10-18 20:34 | XMS_ITS | Continuity of Care Document ---
Author Name Unknown Organization [facility] Address [address] [place] [address]- Care Team Providers Care Non Licensed Nuclear Plant Operator Name Role Phone Efra Mejia MD Primary Care Physician [phone] Encounter [facility] Date(s): 07/04/23 - 08/03/23 [facility] [address] [place] [address]- Allergies, Adverse Reactions, Alerts No Known Allergies [...] inactivated 5 08/16/11 Gi raheem SARS-CoV-2 mRNA ([id number]) vax 04/27/22 Recorded zoster vaccine, inactivated 06/11/21 Recorded SARS-CoV-2 (COVID-19) mRNA BNT-162b2 vac 06/11/21 Recorded SARS-CoV-2 (COVID-19) mRNA BNT-162b2 vac 12/04/20 Recorded SARS-CoV-2 (COVID-19) mRNA BNT-162b2 vac 11/13/20 Recorded tetanus/diphtheria/pertussis, acel(Tdap) 05/07/21 Given tetanus/diphtheria/pertussis, acel(Tdap) 6 03/05/11 Given Influenza Virus Vaccine (oldterm) 06/08/19 Recorde d Fluarix (oldterm) 7 08/19/13 Given pneumococcal 23-valent vaccine 8 04/01/12 Given 1Result Comment: [facility]#[id number] 2Result Comment: [07/31/2018] [facility]# [id number] 3Result Comment: [08/26/2015] done at [facility] 4Admin Note: VIM 03/17/12 5Admin Note: VIM 04/10/11 6Admin Note: VIM 08/03/08 7Admin Note: VIS GIVEN 04/10/13 8Admin Note: vis given dated 06/21/09 Medications ARIPiprazole 5 mg oral tablet 5 mg, 1, tablet, By Mouth, Daily, # 90 tablet, Refills 1, Tot. Refills 1, Maintenance, 03/01/23 10:12:00 EDT, Route to Pharmacy Electronically, [facility]/pharmacy #[id number], Partial fill upon patient request if [...] 11:39:00 EST... Start Date: 07/11/23 Status: Ordered citalopram 40 mg oral tablet 40 mg, 1, tablet, By Mouth, Daily, Take with food., # 90 tablet, Refills 1, Tot. Refills 1, Maintenance, 06/25/23 10:14:00 EDT, Route to Pharmacy Electronically, [facility]/pharmacy #[id number], 181.5, cm, 06/06/23 16:27:00 EDT, Height, 103, kg, 10/26/22 11:39:00... Start Date: 06/25/23 Stop Date: 12/22/23 Status: Ordered donepezil 10 mg oral tablet 1, tablet, By Mouth, Daily at bedtime, # 90 tablet, Refills 2, Maintenance, 07/26/23 16:19:00 EST, Route to Pharmacy Electronically, [id number], 181.5, cm, 07/11/23 11:00:00 EDT, Height, 103, kg, 10/26/22 11:39:00 EST, Dry Weight Start Date: 07/26/23 Status: Ordered famotidine 40 mg oral tablet 1 tablet = 40 mg, By Mouth, Daily at bedtime, # 30 tablet, 0 Refills, Maintenance, 07/11/23 13:01:00 EDT, Tablet, [facility]/pharmacy #[id number], Partial fill upon patient request if [...] Gm, 0 Refills, Maintenance, 07/11/23 13:02:00 EDT, [place], [facility]/pharmacy #[id number], Partial fill upon patient request if the prescription is for a schedule II opioid drug., 2 sprays Nares, Both Daily, 181.5, cm, 07/11/23 1... Start Date: 07/11/23 Status: Ordered fluticasone 50 mcg/inh nasal spray 2 sprays, Nares, Both, Daily in AM, 0 Refills, Maintenance, 07/14/21 14:22:00 EDT, [place], Partial fill upon patient request if the [...] 03/27/23 17:30:00 EDT, Route to Pharmacy Electronically, [facility]/pharmacy #[id number], override needed for lost prescription, thanks., 181.5, cm, 03/07/23 10:11:0... Start Date: 03/27/23 Status: Ordered levothyroxine 0.112 mg oral tablet 2 tablet = 224 mcg, By Mouth, Daily, for 30 days, # 60 tablet, 0 Refills, Hard Stop 08/09/23 12:54:00 EST, 07/10/23 12:54:00 EDT, Tablet, [facility]/pharmacy #[id number], 181.5, cm, 06/06/23 16:27:00 EDT, Height,103, kg, 10/26/22 11:39:00 EST, Dry Weight Start Date: 07/10/23 Stop Date: 08/09/23 Status: Ordered levothyroxine 0.2 mg oral tablet 1 tablet = 200 mcg, By Mouth, Daily, # 30 tablet, 5 Refills, Maintenance, 07/14/23 18:02:00 EDT, Tablet, [facility]/pharmacy #[id number], dose reduction, 181.5, cm, 07/11/23 11:00:00 [...] Start Date: 07/13/21 Status: Ordered nystatin topical 206632 u/gm powder See Instructions, apply to stump 3 x day, # 120 Gm, 5 Refills, Maintenance, 04/23/23 15:43:00 EDT, Powder, [facility]/pharmacy #[id number], Partial fill upon patient request if the prescription is for a schedule II opioid drug., apply to stump 3 x day, 181.5, cm... Start Date: 04/23/23 Status: Ordered nystatin topical 821936 u/gm powder See Instructions, apply to stump [...] Daily, # 30 capsule, 2 Refills, Maintenance, 07/31/23 11:34:00 EST, ECCapsule, [id number], 181.5, cm, 07/11/23 11:00:00 EDT, Height, 103, kg, 10/26/22 11:39:00 EST, Dry Weight Start Date: 07/31/23 Status: Ordered prazosin 2 mg oral capsule 1 capsule = 2 mg, By Mouth, Daily at bedtime, dose reduction, # 90 capsule, 1 Refills, Maintenance,06/25/23 10:14:00 EDT, Capsule, [facility]/pharmacy #[id number], Partial fill upon patient request if the prescription is for a schedule II opioid drug., 181.5, cm,... Start Date: 06/25/23 Stop Date: 12/22/23 Status: Ordered ramelteon 8 mg oral tablet 1 tablet = 8 mg, By Mouth, Daily at bedtime, # 90 tablet, 1 Refills, Maintenance, 06/25/23 10:14:00EDT, Tablet, [facility]/pharmacy #[id number], Partial fill upon patient request if [...] film, 0 Refills, Maintenance, 06/25/23 10:13:00 EDT, [facility]/pharmacy #[id number], [id number], 1.5 films sublingual in AM, 1 film sublingual in PM, 181.5, cm, 06/06/23 16:27:00 EDT, He.. Start Date: 06/25/23 Status: Ordered tamsulosin 0.4 mg oral capsule 0.4 mg, 1, capsule, By Mouth, Daily, # 90 capsule, Refills 3, Tot. Refills 3, Maintenance, 12/20/2315:00:00 EDT, Route to Pharmacy Electronically, [facility]/pharmacy #[id number], Partial fill upon patient request if [...] Team Personnel Name: Cayla Herrera RN Position: [facility] ED RN W/OE and Tasks Member Role: Primary Care Nurse Name: Alka Lee RN Position: [facility] SN RN Member Role: Primary Care Nurse Name: Jaleel Lo RN Position: [facility] RN Member Role: Primary Care Nurse Name: Ivy Smith RN Position: [facility] RN Member Role: Primary Care Nurse Name: Efra Mejia MD Position: [facility] Physician - Primary Care Member Role: PCP Address: Address: [address] [place] [address] Name: Devorah Johnson RN Position: [facility] RN Member Role: Primary Care Nurse Name: Dustin Chavez RN Position: [facility] RN Member Role: Primary Care Nurse Name: Litzy Weinberg RN Position: [facility] RN Member Role: Primary Care Nurse Name: Melanie Garay Position: [facility] RN Member Role: Primary Care Nurse Name: Yoselyn Patrick RN Position: [facility] RN Member Role: Primary Care Nurse Name: Michelle Akbar [place] Position: [facility] RN Member Role: Primary Care Nurse Name: Saundra Gonzalez Position: [facility] RN Member Role: Primary Care Nurse Name: Sofía Moreno RN Position: [facility] RN Member Role: Primary Care Nurse Name: Sary Tong RN Position: [facility] RN Member Role: Primary Care Nurse Name: Danielito Woo RN Position: [facility] Hospital Registered Nursing Professor Member Role: Primary Care Nurse Care Team Related Persons Name: TINY STEPHENS Address: home [address] [place], [place] Name: FERNIE CUMMINS Address: home [address] [place], [place] Name: TINY CUMMINS Address: home [address] [place], [place]
--- OUTSIDE RECORDS SUMMARY | 2023-10-18 20:34 | XMS_ITS | Continuity of Care Document ---
Author Name Unknown Organization [facility] Address [address] [place] [address]- Care Team Providers Care Topographical Field Assistant Name Role Phone Roberto CH, Efra Miramontes Primary Care Physician Encounter [facility] Date(s): 10/16/19 - 10/26/19 [facility] [address] [place] [address]- [facility] Attending Physician: Admlinda, Bobby Admitting Physician: AdmtrBobby [...] 7 03/05/11 Given 1Result Comment: [07/31/2018] [facility]# [id number] 2Result Comment: [08/26/2015] done at [facility] 3Admin Note: VIM 03/17/12 4Admin Note: [...] Maintenance, 07/02/16 16:06:12, Route to Pharmacy Electronically, [id number], [facility] Start Date: [...] 5 Refills, Maintenance, 10/22/19 10:55:00 EST, Tablet, [facility]/pharmacy #[id number], 180.3, cm, 10/22/19 10:14:00 EST, Height, 118.5, kg, 05/12/19 10:33:00 EDT, Dry Weight Start Date: 10/22/19 Status: Ordered ibuprofen 800 mg oral tablet 800 mg, 1, tablet, By Mouth, Every 8 hours, PRN, # 90 tablet, Refills 0, Tot. Refills 0, Maintenance, as needed for pain, 04/10/19 17:13:55 EDT, Route to Pharmacy Electronically, [id number], [facility] #[facility] Start Date: [...] 1 Refills, Maintenance, 10/08/19 16:20:00 EST, Solution, [facility]/pharmacy #[id number], 180, cm, 10/08/19 15:20:00 EST, Height, [...] 01/20/18 13:36:03 EDT, Route to Pharmacy Electronically, [id number], [facility] #[facility] Start Date: [...] Weight Start Date: 08/27/19 Status: Ordered Pen [place], 29 G x 12.7 mm BD Ultra [...]
--- OUTSIDE RECORDS SUMMARY | 2023-10-18 20:34 | XMS_ITS | Continuity of Care Document ---
Author Name Unknown Organization [facility] Address [address] [place] [address]- Care Team Providers Care Script Supervisor Name Role Phone Efra Mejia MD Primary Care Physician Encounter [facility] Date(s): 05/08/21 - 05/09/[address] [address]- Encounter Diagnosis Syncope(Final) - 05/08/21 Humeral head fracture(Final) - 05/08/21 Scalp hematoma(Final) - 05/08/21 Opioid use disorder, severe, on maintenance therapy(Final) - 05/08/21 Fall(Final) - 05/08/21 Syncope(Final) - 05/08/21 Scalp hematoma(Final) - 05/08/21 Opioid use disorder, severe, on maintenance therapy(Final) - 05/08/21 Humeral head fracture(Final) - 05/08/21 Fall(Final) - 05/08/21 Discharge Disposition: A-D/C Home Attending Physician: Jay Bishop MD Admitting Physician: Rich Jang MD Referring Physician: Not on Staff, Referring [...] 1Admin Note: VIM 08/03/08 2Result Comment: [07/31/2018] [facility]# [id number] 3Result Comment: [08/26/2015] done at [facility] 4Admin Note: VIM 03/17/12 5Admin Note: VIM 04/10/11 6Admin Note: VIS GIVEN 04/10/13 7Admin Note: vis given dated 06/21/09 Medications fluticasone 50 mcg/inh nasal spray 2 sprays, Nares, Both, Daily, # 16 Gm, 5 Refills, Maintenance, 12/15/20 12:56:00 EDT, [place], [facility]/pharmacy #[id number], Partial fill upon patient request if the prescription is for a schedule II opioid drug., 2 sprays Nares, Both Daily, 183, cm, 12/15/20 11:... Start Date: 12/15/20 Status: Ordered gabapentin 300 mg oral capsule 300 mg, 1, capsule, By Mouth, 2 times a day, # 60 capsule, Refills 5, Tot. Refills 5, Maintenance, 10/27/20 10:24:00 EST, Route to Pharmacy Electronically, [facility]/pharmacy #[id number], Partial fill upon patient request if the prescription is for a schedule II... Start Date: 10/27/20 Status: Ordered gabapentin 300 mg oral capsule 300 mg, Capsule, By Mouth, 05/09/21 9:00:00 EDT Start Date: 05/09/21 Stop Date: 05/09/21 Status: Completed Lantus Inj 0.1 mL = 10 units, [...] patch, 0 Refills, Maintenance, 04/03/21 9:04:00 EDT, [id number], Partial fill upon patient request if the prescription is for a schedule II opioid drug., 1 patch Topically Daily, 180, cm, 04/03/21 7:30:00 EDT, H... Start Date: 04/03/21 Status: Ordered lisinopril 20 mg oral tablet 20 mg, 1, tablet, By Mouth, Daily, # 30 tablet, Refills 0, Tot. Refills 0, Maintenance, 05/09/21 9:00:00 EDT, Route to Pharmacy Electronically, [facility]/pharmacy #[id number], Partial fill upon patient request if the prescription is for a schedule II opioid drug.... Start Date: 05/09/21 Status: Ordered lisinopril 20 mg oral tablet 20 mg, Tablet, By Mouth, 05/09/21 9:00:00 EDT Start Date: 05/09/21 Stop Date: 05/09/21 Status: Completed nystatin topical 808978 u/gm powder See Instructions, apply to stump daily, # 30 Gm, 5 Refills, Maintenance, 12/15/20 12:56:00 EDT, Powder, [facility]/pharmacy #[id number], Partial fill upon patient [...] 5 Refills, Maintenance, 12/15/20 12:38:00 EDT, Solution, [facility]/pharmacy #[id number], Partial fill upon patient [...] tx. 2seen by ortho 10/04 and 01/02 Results Radiology Reports * Exam Date Time Procedure Performing Provider Status 05/07/21 9:45 PM Shoulder Min 2 Views Left Margaux Howard; Modified Notes: (Shoulder Min 2 Views Left) Reason For Exam: with Pain;Trauma ADDENDUM: Shoulder Min 2 Views Left Addendum: Mildly displaced fracture of the humeral head involving the greater tuberosity. WSN: [id number] Ordering Physician: Elvia Roberto Dictated By: Nick Landa MD Dictated Date/Time: 05/07/21 10:10 p Reviewed By: Nick Landa MD Signed By: Nick Landa MD Signed Date/Time: 05/07/21 10:10 pm Transcribed By: CATARINO Transcribed Date/Time: 05/07/21 10:10 pm RESULT: Shoulder Min 2 Views Left Shoulder Min 2 Views Left, 2 views Hx of Present Illness: pt presents to ED for fall down ten stairs, states he fell backwards from top.; Reason: Trauma; with Pain; Clinical Question(s): Fracture COMPARISON: None. FINDINGS: No acute fracture or dislocation. Marked glenohumeral osteoarthritis. IMPRESSION: No acute osseous injury identified. WSN: [id number] Ordering Physician: Elvia Roberto Dictated By: Nick Landa MD Dictated Date/Time: 05/07/21 10:00 p Reviewed By: Nick Landa MD Signed By: Nick Landa MD Signed Date/Time: 05/07/21 10:00 pm Transcribed By: CATARINO Transcribed Date/Time: 05/07/21 9:58 pm * Exam Date Time Procedure Performing Provider Status 05/07/21 9:45 PM Chest Single Frontal View Margaux Howard tc; Auth (Verified) Notes: (Chest Single Frontal View) Reason For Exam: Shortness of Breath RESULT: Chest Single Frontal View Chest Single Frontal View Hx of Present Illness: pt presents to ED for fall down ten stairs, states he fell backwards from top.; Reason: Shortness of Breath; Clinical Question(s): CHF COMPARISON: 07/08/2020 FINDINGS: LINES AND TUBES: None. LUNGS AND PLEURA: Clear lungs. Normal pulmonary vascularity. No pleural effusion. No pneumothorax. HEART, MEDIASTINUM AND SOCORRO: Unchanged. 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 IMPRESSION: No acute abnormality. WSN: [id number] Ordering Physician: Elvia Roberto Dictated By: Nick Landa MD Dictated Date/Time: 05/07/21 10:14 p Reviewed By: Nick Landa MD Signed By: Nick Landa MD Signed Date/Time: 05/07/21 10:14 pm Transcribed By: CATARINO Transcribed Date/Time: 05/07/21 10:08 pm Vital Signs Most recent to oldest [Reference Range]: 1 2 3 Oxygen Saturation [94-100 %] 95 % (05/09/21 8:00 AM) 97 % (05/09/21 6:58 AM) 95 % (05/08/21 9:19 PM) Pulse Rate [55-90 bpm] 92 bpm *H* (05/09/21 8:00 AM) 78 bpm (05/09/21 6:58 AM) 78 bpm (05/08/21 9:19 PM) Blood Pressure [90-138/55-84 mm Hg] 115/80mm Hg (05/09/21 8:42 AM) 115/80mm Hg (05/09/21 8:00 AM) 151/77mm Hg *H* (05/09/21 6:58 AM) Respiratory Rate [16-30 br/min] 18 br/min (05/09/21 8:42 AM) 18 br/min (05/09/21 8:00 AM) 16 br/min (05/09/21 6:58 AM) Temperature [96.8-100.4 DegF] 98.5 DegF (05/09/21 6:58 AM) 98.7 DegF (05/08/21 9:19 PM) 98.6 DegF (05/08/21 1:46 PM) Mode of Delivery (Oxygen) Room air (05/09/21 8:00 AM) Room air (05/09/21 6:58 AM) Room air (05/08/21 9:19 PM) Blood pressure sites Arm, left (05/09/21 8:00 AM) Arm, left (05/09/21 6:58 AM) Arm, left (05/08/21 9:19 PM) Temperature Route Oral (05/09/21 6:58 AM) Oral (05/08/21 9:19 PM) Oral (05/08/21 1:46 PM) Social History Social History Type Response Tobacco Other: 3 cigars brenden y. Sex Male
--- OUTSIDE RECORDS SUMMARY | 2023-10-18 20:34 | XMS_ITS | Continuity of Care Document ---
Author Name Unknown Organization [facility] Address [address] [place] [address]- Care Team Providers Care Wine Sales Representative Name Role Phone Efra Mejia MD Primary Care Physician [id number] Date(s): 07/07/21 - 11/04/21 [facility] [address] [place] [address]- Attending Physician: Hasmukh Piña MD Admitting Physician: Hasmukh Piña MD Referring Physician: Efra Mejia MD Allergies, Adverse Reactions, [...] vaccine 8 04/01/12 Given 1Result Comment: [facility]#[id number] 2Result Comment: [07/31/2018] [facility]# [id number] 3Result Comment: [08/26/2015] done at [facility] 4Admin Note: VIM 03/17/12 5Admin Note: VIM 04/10/11 6Admin Note: VIM 08/03/08 7Admin Note: VIS GIVEN 04/10/13 8Admin Note: vis given dated 06/21/09 Medications donepezil 5 mg oral tablet 5 mg, 1, tablet, By Mouth, Daily, # 30 tablet, Refills 5, Tot. Refills 5, Maintenance, 06/02/21 14:20:00 EDT, Route to Pharmacy Electronically, [facility]/pharmacy #[id number], Partial fill upon patient request if the prescription is for a schedule II opioid drug.... Start Date: 06/02/21 Status: Ordered ferrous sulfate 325 mg oral enteric coated tablet 325 mg, By Mouth, Daily, Refills 3, Maintenance, 07/19/21 10:08:00 EDT, Partial fill upon patient request if the prescription is for a schedule II opioid drug. Start Date: 07/19/21 Status: Ordered fluticasone 50 mcg/inh nasal spray 2 sprays, Nares, Both, Daily in AM, 0 Refills, Maintenance, 07/14/21 14:22:00 EDT, [place], Partial fill upon patient request if the [...] capsule, Refills 2, Tot. Refills 2, Maintenance, 08/31/21 11:39:00 EST, Route to Pharmacy Electronically, [facility]/pharmacy #[id number], Partial fill upon patient request if the prescription is for a schedule II... Start Date: 08/31/21 Status: Ordered Iodosorb 0.9% topical gel See Instructions, Continue wound care with iodosorb gel and 2x2 dressing daily to small wound Betadine pain to incision, # 1 each, 0 Refills, Maintenance, 09/28/21 18:43:00 EST, [id number], Partial fill upon patient request if the prescripti... Start Date: 09/28/21 Status: Ordered levothyroxine 0.112 mg oral tablet 2 tablet = 224 mcg, By Mouth, Daily, # 60 tablet, 5 Refills, Maintenance, 10/27/20 10:22:00 EST, Table[place], [id number], 183, cm, 10/27/20 8:41:00 EST, Height, 119, kg, 09/23/20 17:06:00 EST, DryWeight Start Date: 10/27/20 Stop Date: 04/25/21 Status: Ordered melatonin 5 mg oral tablet 1 tablet = 5 mg, By Mouth, Daily at bedtime, PRN for insomnia, # 60 tablet, 0 Refills, Maintenance,07/13/21 22:12:00 EDT, Tablet, Partial fill upon patient request if the prescription is for a schedule II opioid drug. Start Date: 07/13/21 Status: Ordered nystatin topical 112964 u/gm powder See Instructions, apply to stump 3 x day, # 120 Gm, 5 Refills, Maintenance, 07/06/21 12:35:00 EDT, Pow[place], [facility]/pharmacy #[id number], Partial fill [...] EST,Dry Weight Start Date: 10/27/20 Status: Ordered tamsulosin 0.4 mg oral capsule 0.4 mg, 1, capsule, By Mouth, Daily, # 90 capsule, Refills 3, Tot. Refills 3, Maintenance, 07/06/2111:55:00 EDT, Route to Pharmacy Electronically, [facility]/pharmacy #[id number], Partial fill upon patient request if the prescription is for a schedule II opioid d... Start Date: 07/06/21 Status: Ordered Trulicity Pen 0.75 mg/0.5 mL subcutaneous solution 0.5 mL = 0.75 mg, Subcutaneous Injection, Every week, rotate injection sites, # 2 mL, 5 Refills, Maintenance, 10/05/21 11:20:00 EST, Solution, [facility]/pharmacy #[id number], Partial fill [...]
--- OUTSIDE RECORDS SUMMARY | 2023-10-18 20:34 | XMS_ITS | Continuity of Care Document ---
Author Name Unknown Organization [facility] Address [address] [place] [address]- Care Team Providers Care Telephone Operators Supervisor Name Role Phone Efra Mejia MD Primary Care Physician [phone] Encounter [facility] Date(s): 10/05/21 - 10/12/21 [facility] [address] [place] [address]- Encounter Diagnosis Hx of right BKA(Discharge Diagnosis) - 10/05/21 Infection of amputation stump(Discharge Diagnosis) - 10/05/21 Alzheimer's dementia(Discharge Diagnosis) - 10/05/21 Moderate recurrent major depression(Discharge Diagnosis) - 10/05/21 Opioid dependence on agonist therapy(Discharge Diagnosis) - 10/05/21 Attending Physician: Efra Mejia MD Allergies, Adverse [...] mRNA BNT-162b2 vac 11/13/20 Recorded tetanus/diphtheria/pertussis, acel(Tdap) 8/22/21 Given tetanus/diphtheria/pertussis, acel(Tdap) 6 03/05/11 Given Influenza Virus Vaccine (oldterm) 06/08/19 Recorde d Fluarix (oldterm) 7 08/19/13 Given pneumococcal 23-valent vaccine 8 04/01/12 Given 1Result Comment: [facility]#[id number] 2Result Comment: [07/31/2018] [facility]# [id number] 3Result Comment: [08/26/2015] done at [facility] 4Admin Note: VIM 03/17/12 5Admin Note: VIM 04/10/11 6Admin Note: VIM 08/03/08 7Admin Note: VIS GIVEN 04/10/13 8Admin Note: vis given dated 06/21/09 Medications donepezil 5 mg oral tablet 5 mg, 1, tablet, By Mouth, Daily, # 30 tablet, Refills 5, Tot. Refills 5, Maintenance, 06/02/21 14:20:00 EDT, Route to Pharmacy Electronically, [facility]/pharmacy #[id number], Partial fill upon patient request if the [...] AM, 0 Refills, Maintenance, 07/14/21 14:22:00 EDT, [place], Partial fill upon patient request if the [...] 11:39:00 EST, Route to Pharmacy Electronically, [facility]/pharmacy #[id number], Partial fill upon patient request if the prescription is for a schedule II... Start Date: 08/31/21 Status: Ordered Iodosorb 0.9% topical gel See Instructions, Continue wound care with iodosorb gel and 2x2 dressing daily to small wound Betadine pain to incision, # 1 each, 0 Refills, Maintenance, 09/28/21 18:43:00 EST, [facility]/pharmacy #[id number], Partial fill upon patient request if the prescripti... Start Date: 09/28/21 Status: Ordered levothyroxine 0.112 mg oral tablet 2 tablet = 224 mcg, By Mouth, Daily, # 60 tablet, 5 Refills, Maintenance, 10/27/20 10:22:00 EST, Tablet, [facility]/pharmacy #[id number], 183, cm, 10/27/20 8:41:00 EST, [...] Start Date: 07/13/21 Status: Ordered nystatin topical 338443 u/gm powder See Instructions, apply to stump 3 x day, # 120 Gm, 5 Refills, Maintenance, 07/06/21 12:35:00 EDT, Powder, [facility]/pharmacy #[id number], Partial fill upon patient request if the prescription is for a schedule II opioid drug., apply to stump 3 x day, 180, cm,... Start Date: 07/06/21 Status: Ordered omeprazole 20 mg oral enteric coated capsule 1 capsule = 20 mg, By Mouth, Daily, # 30 capsule, 5 Refills, Maintenance, 10/27/20 10:22:00 EST, ECCapsule, [facility]/pharmacy #[id number], 183, cm, 10/27/20 8:41:00 EST, Height, 119, kg, 09/23/20 17:06:00 EST,Dry Weight Start Date: 10/27/20 Status: Ordered tamsulosin 0.4 mg oral capsule 0.4 mg, 1, capsule, By Mouth, Daily, # 90 capsule, Refills 3, Tot. Refills 3, Maintenance, 07/06/2111:55:00 EDT, Route to Pharmacy Electronically, [facility]/pharmacy #[id number], Partial fill upon patient request if the prescription is for a schedule II opioid d... Start Date: 07/06/21 Status: Ordered Trulicity Pen 0.75 mg/0.5 mL subcutaneous solution 0.5 mL = 0.75 mg, Subcutaneous Injection, Every week, rotate injection sites, # 2 mL, 5 Refills, Maintenance, 10/05/21 11:20:00 EST, Solution, [facility]/pharmacy #[id number], Partial fill upon patient request [...] Effective Dates Health Status Clinical Service Informant Alzheimer's dementia Discharge Diagnosis 10/05/21 Infection of amputation stump Discharge Diagnosis 10/05/21 Hx of right BKA Discharge Diagnosis 10/05/21 Moderate recurrent major depression Discharge Diagnosis 10/05/21 Opioid dependence on agonist therapy Discharge Diagnosis 10/05/21 Social History Social History Type Response Tobacco Other: 3 cigars brenden y. Sex
--- OUTSIDE RECORDS SUMMARY | 2023-10-18 20:34 | XMS_ITS | Continuity of Care Document ---
Author Name Unknown Organization [facility] Address [address] [place] [address]- Care Team Providers Care Event Planning Intern Name Role Phone Efra Mejia MD Primary Care Physician [phone] Encounter [facility] Date(s): 03/07/23 - 03/14/23 [facility] [address] [place] [address]- Attending Physician: Efra Mejia MD Allergies, Adverse Reactions, Alerts No Known Allergies Immunizations Given and Recorded Vaccine Date Status Refusal Reason SARS-CoV-2 mRNA ([id number]) vax 04/27/22 Recorded influenza virus vaccine, inactivated [...] vaccine 8 04/01/12 Given 1Result Comment: [facility]#[id number] 2Result Comment: [07/31/2018] [facility]# [id number] 3Result Comment: [08/26/2015] done at [facility] 4Admin Note: VIM 03/17/12 5Admin Note: VIM 04/10/11 6Admin Note: VIM 08/03/08 7Admin Note: VIS GIVEN 04/10/13 8Admin Note: vis given dated 06/21/09 Medications ARIPiprazole 5 mg oral tablet 5 mg, 1, tablet, By Mouth, Daily, # 90 tablet, Refills 1, Tot. Refills 1, Maintenance, 03/01/23 10:12:00 EDT, Route to Pharmacy Electronically, [facility] [...] 10/11/22 12:01:00 EST, [facility], [facility] 03/21/23 11:30:00 EDT, 03/07/23 11:30:00 EDT, Tablet, [facility]/pharmacy #[id number], dose change, 181.5, cm, 03/07/23 10:11:00 EDT,Height, 103, kg, 10/26/22 11:39:00 EST, Dry Weight Start Date: 03/07/23 Stop Date: 03/21/23 Status: Ordered fluticasone 50 mcg/inh nasal spray 2 sprays, Nares, Both, Daily in AM, 0 Refills, Maintenance, 07/14/21 14:22:00 EDT, [place], Partial fill upon patient request if the [...] 01/30/23 16:37:00 EDT, Route to Pharmacy Electronically, [facility]/pharmacy #[id number], override needed for lost prescription, thanks., 181.5, cm, 10/26/22 11:39:0... Start Date: 01/30/23 Status: Ordered levothyroxine 0.112 mg oral tablet 2 tablet = 224 mcg, By Mouth, Daily, # 60 tablet, 2 Refills, Maintenance, 12/19/22 16:00:00 EDT, Tablet, [facility]/pharmacy #[id number], 181.5, cm, 10/26/22 11:39:00 EST, Height, [...] Stop Date: 03/21/23 Status: Ordered nystatin topical 084941 u/gm ointment 1 application, Topically, 3 times a day, for 14 days, apply to R stump as needed for skin rash, # 120 Gm, 3 Refills, Acute 05/02/23 11:31:00 EDT, 03/07/23 11:31:00 EDT, Ointment, [facility]/pharmacy #[id number], Partial fill upon patient request if the prescriptio... Start Date: 03/07/23 Stop Date: 05/02/23 Status: Ordered nystatin topical 194686 u/gm powder See Instructions, apply to stump [...] capsule, 1 Refills, Maintenance,03/01/23 10:12:00 EDT, Capsule, [facility]/pharmacy #[id number], Partial fill upon patient request if the prescription is for a schedule II opioid drug., 181.5, cm,... Start Date: 03/01/23 Stop Date: 08/28/23 Status: Ordered ramelteon 8 mg oral tablet 1 tablet = 8 mg, By Mouth, Daily at bedtime, # 90 tablet, 1 Refills, Maintenance, 03/01/23 10:13:00EDT, Tablet, [facility]/pharmacy #[id number], Partial [...] in AM, 1 film sublingual in PM [id number], # 75 film, 1 Refills, Maintenance, 03/01/23 10:12:00 EDT, [facility]/pharmacy #[id number], 1.5 films sublingual in AM, 1 film sublingual in PM ; [id number], 181.5, cm, 02/05/23 12:41... Start Date: 03/01/23 Status: Ordered tamsulosin 0.4 mg oral capsule 0.4 mg, 1, capsule, By Mouth, Daily, # 90 capsule, Refills 3, Tot. Refills 3, Maintenance, 12/20/2315:00:00 EDT, Route to Pharmacy Electronically, [facility] [...] oldest [Reference Range]: 1 Height 181.5 cm (03/07/23 10:11 AM) Weight 98.8 kg (03/07/23 10:11 AM) Oxygen Saturation [94-100 %] 96 % (03/07/23 10:11 AM) Pulse Rate [55-90 bpm] 69 bpm (03/07/23 10:11 AM) Body Mass Index [18.5-24.99 kg/m2] 29.99 kg/m2 *H* (03/07/23 10:11 AM) Blood Pressure [90-138/55-84 mm Hg] 116/ 61mm Hg (03/07/23 10:11 AM) Blood pressure sites Arm, right (03/07/23 10:11 AM) Weight Obtained Via Standing scale (03/07/23 10:11 AM) Social History Social History Type Response Tobacco Other: 3 cigars brenden y. Sex Patient Care team information Care Team Personnel Name: Cayla Herrera RN Position: [facility] ED RN W/OE and Tasks Member Role: Primary Care Nurse Name: Alka Lee RN Position: [facility] SN RN Member Role: Primary Care Nurse Name: Jaleel Lo RN Position: S RN Member Role: Primary Care Nurse Name: Ivy Smith RN Position: S RN Member Role: Primary Care Nurse Name: Roberto CH, Efra Miramontes Position: [facility] Physician - Primary Care Member Role: PCP Address: Address: [address] [place] [address] Name: Devorah Johnson RN Position: [facility] RN Member Role: Primary Care Nurse Name: Dustin Chavez RN Position: [facility] RN Member Role: Primary Care Nurse Name: Litzy Weinberg RN Position: [facility] RN Member Role: Primary Care Nurse Name: Melanie Garay Position: [facility] RN Member Role: Primary Care Nurse Name: Michelle Akbar [place] Position: [facility] RN Member Role: Primary Care Nurse Name: Saundra Gonzalez Position: [facility] RN Member Role: Primary Care Nurse Name: Sofía Moreno RN Position: [facility] RN Member Role: Primary Care Nurse Name: Sary Tong RN Position: [facility] RN Member Role: Primary Care Nurse Name: Sophia Lomas RN Position: [facility] RN Member Role: Primary Care Nurse Name: Danielito Woo RN Position: [facility] Mechanic Helper Member Role: Primary Care Nurse Care Team Related Persons Name: TINY STEPHENS Address: home [address] [place], [place] Name: FERNIE CUMMINS Address: home [address] [place], [place] Name: TINY CUMMINS Address: home [address] [place], [place]
--- OUTSIDE RECORDS SUMMARY | 2023-10-18 20:34 | XMS_ITS | Continuity of Care Document ---
Author Name Unknown Organization [facility] Address [address] [place] [address]- Care Team Providers Care Event Av Operator Name Role Phone Efra Meija MD Primary Care Physician [phone] En[place] [facility] Date(s): 01/08/20 - 02/11/20 [facility] [address] [place] [address]- [facility] Attending Physician: Efra Mejia MD Allergies, Adverse [...] acel(Tdap) 7 03/05/11 Given 1Result Comment: [07/31/2018] [facility]# [id number] 2Result Comment: [08/26/2015] done at [facility] 3Admin Note: VIM 03/17/12 4Admin Note: VIM 04/10/11 5Admin Note: VIS GIVEN 04/10/13 6Admin Note: vis given dated 06/21/09 7Admin Note: VIM 08/03/08 Medications albuterol CFC free 90 mcg/inh inhalation aerosol 1, puffs, Inhalation, 4 times a day, PRN, # 18 Gm, Refills 0, Tot. Refills 0, Maintenance, 12/02/2009:56:00 EDT, Aerosol, Route to Pharmacy Electronically, [id number], [facility]/pharmacy #[id number], 180.3, cm, 11/12/19 15:07:00 EST, He... [...] 1 Refills, Maintenance, 11/12/19 10:02:00 EST, Gel, [facility]/pharmacy #[id number], 180.3, cm, 11/12/19 8:43:00 EST, Height, [...] Maintenance, 07/02/16 16:06:12, Route to Pharmacy Electronically, [id number], [facility] #[facility] Start Date: [...] 5 Refills, Maintenance, 10/22/19 10:55:00 EST, Tablet, [facility]/pharmacy #2339, 180.3, cm, 10/22/19 10:14:00 EST, Height, 118.5, kg, 05/12/19 10:33:00 EDT, Dry Weight Start Date: 10/22/19 Status: Ordered ibuprofen 800 mg oral tablet 800 mg, 1, tablet, By Mouth, Every 8 hours, PRN, # 90 tablet, Refills 0, Tot. Refills 0, Maintenance, as needed for pain, 04/10/19 17:13:55 EDT, Route to Pharmacy Electronically, [id number], [facility] #[facility] Start Date: 04/10/19 Stop Date: 05/10/19 Status: Ordered Insulin Syringe, BD Ultra-Fine 0.3 cc 31 G x 8 mm (5/16in) See Instructions, # 100 each, Refills 1, Tot. Refills 1, Maintenance, as directed for type 2 diabetes., 05/21/19 12:51:57 EDT, Compound Start Date: 05/21/19 Status: Ordered Jardiance 10 mg oral tablet 1 tablet = 10 mg, By Mouth, Daily in AM, # 30 tablet, 5 Refills, Maintenance, 01/12/20 14:27:00 EDT, Tablet, [facility]/pharmacy #2339, 180.3, cm, 01/12/20 13:41:00 EDT, Height, 120.7, kg, 11/03/19 13:31:00EST, Dry Weight Start Date: 01/12/20 Status: Ordered Lantus Solostar Pen 100 units/mL subcutaneous solution = 60 units, Subcutaneous Injection, 2 times a day, # 15 mL, 5 Refills, Maintenance, 01/19/20 15:07:00 EDT, Solution, [facility]/pharmacy #[id number], 180.3, cm, 01/19/20 14:07:00 EDT, Height, [...] 01/20/18 13:36:03 EDT, Route to Pharmacy Electronically, [id number], [facility] #[facility] Start Date: 01/20/18 Stop Date: 01/15/19 Status: Ordered Mavyret 100 mg-40 mg oral tablet 3 tablet, By Mouth, Daily, x 8 weeks, # 84 tablet, 1 Refills, Maintenance, 02/05/20 14:18:00 EDT, Tablet, [facility], 3 tablet By Mouth [...] 11/12/19 15:56:00 EST, Route to Pharmacy Electronically, [facility]/pharmacy #[id number], 180.3, cm, 11/12/19 15:07:00 EST, Height, 120.7, kg, 11/03/19 13:31:00 EST, Dry Weight Start Date: 11/12/19 Status: Ordered NovoLOG FlexPen 100 units/mL subcutaneous [...] Weight Start Date: 08/27/19 Status: Ordered Pen [place], 29 G x 12.7 mm BD Ultra [...]
--- OUTSIDE RECORDS SUMMARY | 2023-10-18 20:34 | XMS_ITS | Continuity of Care Document ---
Author Name Unknown Organization [facility] Address [address] [place] [address]- Care Team Providers Care Automatic I Threading Machine Feeder Name Role Phone Efra Mejia MD Primary Care Physician [phone] Encounter [facility] Date(s): 09/01/20 - 10/01/20 [facility] [address] [place] [address]- Allergies, Adverse Reactions, Alerts Substance Reaction Severity [...] acel(Tdap) 7 03/05/11 Given 1Result Comment: [07/31/2018] [facility]# [id number] 2Result Comment: [08/26/2015] done at [facility] 3Admin Note: VIM 03/17/12 4Admin Note: VIM 04/10/11 5Admin Note: VIS GIVEN 04/10/13 6Admin Note: vis given dated 06/21/09 7Admin Note: VIM 08/03/08 Medications albuterol CFC free 90 mcg/inh inhalation aerosol 1, puffs, Inhalation, 4 times a day, PRN, # 18 Gm, Refills 0, Tot. Refills 0, Maintenance, 12/02/2009:56:00 EDT, Aerosol, Route to Pharmacy Electronically, [id number], [facility]/pharmacy #[id number], 180.3, cm, 11/12/19 15:07:00 EST, [...] Maintenance, 07/02/16 16:06:12, Route to Pharmacy Electronically, [id number], [facility] Start Date: [...] 10/03/20 13:15:00 EST, 09/26/20 13:09:00 EST, Cream, [facility], Partial fill upon patient request if the prescriptionis for a schedule II opioid drug., 1 application To... Start Date: 09/26/20 Stop Date: 10/03/20 Status: Ordered MiraLax oral powder for reconstitution = 17 Gm, By Mouth, Daily, dissolve in water before taking, # 527 Gm, 5 Refills, Maintenance, 06/21/20 14:32:00 EDT, REC Powder, [facility]/pharmacy #[id number], 17 Gm By Mouth Daily,Instr:dissolve [...] 5 Refills, Maintenance, 05/26/20 17:50:00 EDT, ECCapsule, [facility]/pharmacy #[id number], 180.3, cm, 05/06/20 16:07:00 EDT, Height, 120.7, kg, 11/03/19 13:31:00EST, Dry Weight Start Date: 05/26/20 Status: Ordered Pen [place], 29 G x 12.7 mm BD Ultra Fine See Instructions, # 1 box, Refills 3, Tot. Refills 3, Maintenance, use with NOvolog Pen injection twice daily, 06/18/19 9:42:43 EDT, Compound Start Date: 06/18/19 Status: Ordered tamsulosin 0.4 mg oral capsule 0.4 mg, 1, capsule, By Mouth, Daily, # 30 capsule, Refills 11, Tot. Refills 11, Maintenance, 07/05/20 16:10:00 EDT, Route to Pharmacy Electronically, [facility]/pharmacy #[id number], 180.3, cm, 06/21/20 13:42:00 EDT, Height, 120.7, kg, 11/03/19 13:31:00 EST, Dry W... Start Date: 07/05/20 Status: Ordered Tylenol 325 mg oral tablet 650 mg, 2, tablet, By Mouth, Every 4 hours, PRN, # 90 tablet, Refills 0, Tot. Refills 0, Acute 11/04/20 13:07:00 EST, Pain , Mild, 09/26/20 13:07:00 EST, Route to Pharmacy Electronically, [facility], Partial fill upon patient request [...]
--- OUTSIDE RECORDS SUMMARY | 2023-10-18 20:34 | XMS_ITS | Continuity of Care Document ---
Author Name Unknown Organization [facility] Address [address] [place] [address]- Care Team Providers Care Car Repossessor Name Role Phone Efra Mejia MD Primary Care Physician [phone] [place] [facility] [place](s): 05/31/20 - 06/07/20 [facility] [address] [place] [address]- [facility] Attending Physician: Efra Mejia MD Allergies, Adverse [...] acel(Tdap) 7 03/05/11 Given 1Result Comment: [07/31/2018] [facility]# [id number] 2Result Comment: [08/26/2015] done at [facility] 3Admin Note: VIM 03/17/12 4Admin Note: VIM 04/10/11 5Admin Note: VIS GIVEN 04/10/13 6Admin Note: vis given dated 06/21/09 7Admin Note: VIM 08/03/08 Medications albuterol CFC free 90 mcg/inh inhalation aerosol 1, puffs, Inhalation, 4 times a day, PRN, # 18 Gm, Refills 0, Tot. Refills 0, Maintenance, 12/02/2009:56:00 EDT, Aerosol, Route to Pharmacy Electronically, [id number], [facility]/pharmacy #[id number], 180.3, cm, 11/12/19 15:07:00 [...] Maintenance, 07/02/16 16:06:12, Route to Pharmacy Electronically, [id number], [facility] Start Date: [...] capsule 300 mg, 1, capsule, By Mouth, 3 times a day, # 90 capsule, Refills 0, Tot. Refills 0, Maintenance, 05/31/20 14:57:00 EDT, Route to Pharmacy Electronically, [facility]/pharmacy #[id number], 180.3, cm, 05/31/20 14:08:00 EDT, Height, 120.7, kg, 11/03/19 13:31:00 EST,... Start Date: 05/31/20 Status: Ordered ibuprofen 800 mg oral tablet 800 mg, 1, tablet, By Mouth, Every 8 hours, PRN, # 90 tablet, Refills 0, Tot. Refills 0, Maintenance, as needed for pain, 04/10/19 17:13:55 EDT, Route to Pharmacy Electronically, [id number], [facility] Start Date: [...] day, # 15 mL, 5 Refills, Maintenance, 05/31/20 14:57:00 EDT, Solution, [facility]/pharmacy #[id number], 180.3, cm, 05/31/20 14:08:00 EDT, Height, 120.7, kg, 11/03/19 13:31:00 EST, Dry Weight Start Date: 05/31/20 Status: Ordered levothyroxine 0.112 mg oral tablet 2 tablet = 224 mcg, By Mouth, Daily, # 60 tablet, 5 Refills, Maintenance, 06/18/19 9:13:12 EDT, Tablet Start Date: 06/18/19 Stop Date: 12/15/19 Status: Ordered lisinopril 20 mg oral tablet 20 mg, 1, tablet, By Mouth, Daily, # 90 tablet, Refills 3, Tot. Refills 3, Maintenance, 01/20/18 13:36:03 EDT, Route to Pharmacy Electronically, [id number], [facility] Start Date: 01/20/18 Stop Date: 01/15/19 Status: Ordered Mavyret 100 mg-40 mg oral tablet 3 tablet, By Mouth, Daily, x 8 weeks, # 84 tablet, 1 Refills, Maintenance, 02/05/20 14:18:00 EDT, Tablet, [facility], 3 tablet By Mouth Daily,Instr:x 8 weeks, 180.3, cm, 01/19/20 14:07:00 EDT, Height, 120.7, kg, 11/03/19 13:31:00 EST,... Start Date: 02/05/20 Status: Ordered MiraLax oral powder for reconstitution = 17 Gm, By Mouth, Daily, dissolve in water before taking, # 527 Gm, 1 Refills, Maintenance, 07/04/17 14:05:15, REC Powder, 17 Gm By Mouth Daily,Instr:dissolve in water before taking Start Date: 07/04/17 Status: Ordered Nicoderm C-Q 21 mg/24 hr transdermal film, extended release 1 patch, Topically, Daily, # 30 patch, 4 Refills, Maintenance, 05/31/20 14:58:00 EDT, Patch, [facility]/pharmacy #[id number], 180.3, cm, 05/31/20 14:08:00 EDT, Height, 120.7, kg, 11/03/19 13:31:00 EST, Dry Weight Start Date: 05/31/20 Stop Date: 10/28/20 Status: Ordered omeprazole 20 mg oral enteric coated capsule 1 capsule = 20 mg, By Mouth, Daily, # 30 capsule, 5 Refills, Maintenance, 05/26/20 17:50:00 EDT, ECCapsule, [id number], 180.3, cm, 05/06/20 16:07:00 EDT, Height, 120.7, kg, 11/03/19 13:31:00EST, Dry Weight Start Date: 05/26/20 Status: Ordered Pen [place], 29 G x 12.7 mm BD Ultra Fine See Instructions, # 1 box, Refills 3, Tot. Refills 3, Maintenance, use with NOvolog Pen injection twice daily, 06/18/19 9:42:43 EDT, Compound Start Date: 06/18/19 Status: Ordered Problem List Condition Effective Dates [...] oldest [Reference Range]: 1 Height 180.3 cm (05/31/20 2:08 PM) Weight 119 kg (05/31/20 2:08 PM) Oxygen Saturation [94-100 %] 97 % (05/31/20 2:08 PM) Pulse Rate [55-90 bpm] 69 bpm (05/31/20 2:08 PM) Body Mass Index [18.5-24.99] 36.61 *>HHI* (05/31/20 2:08 PM) Blood Pressure [90-138/55-84 mm Hg] 116/ 68mm Hg (05/31/20 2:08 PM) Mode of Delivery (Oxygen) Room air (05/31/20 2:08 PM) Weight Obtained Via Standing scale (05/31/20 2:08 PM) Social History Social History Type Response Tobacco Other: 3 cigars brenden y. Sex Male
--- OUTSIDE RECORDS SUMMARY | 2023-10-18 20:35 | XMS_ITS | Continuity of Care Document ---
Author Name Unknown Organization [facility] Address [address] [place] [address]- Care Team Providers Care Transit Worker Name Role Phone Efra eMjia MD Primary Care Physician [phone] Encounter [facility] Date(s): 11/12/19 - 12/26/19 [facility] [address] [place] [address]- [facility] Attending Physician: Efra Mejia MD Allergies, Adverse [...] acel(Tdap) 7 03/05/11 Given 1Result Comment: [07/31/2018] [facility]# [id number] 2Result Comment: [08/26/2015] done at [facility] 3Admin Note: VIM 03/17/12 4Admin Note: VIM 04/10/11 5Admin Note: VIS GIVEN 04/10/13 6Admin Note: vis given dated 06/21/09 7Admin Note: VIM 08/03/08 Medications albuterol CFC free 90 mcg/inh inhalation aerosol 1, puffs, Inhalation, 4 times a day, PRN, # 18 Gm, Refills 0, Tot. Refills 0, Maintenance, 12/02/2009:56:00 EDT, Aerosol, Route to Pharmacy Electronically, [id number], [facility]/pharmacy #[id number], 180.3, cm, 11/12/19 15:07:00 EST, [...] 1 Refills, Maintenance, 11/12/19 10:02:00 EST, Gel, [facility]/pharmacy #[id number], 180.3, cm, 11/12/19 8:43:00 EST, Height, [...] Maintenance, 07/02/16 16:06:12, Route to Pharmacy Electronically, [id number], [facility] Start Date: [...] 5 Refills, Maintenance, 10/22/19 10:55:00 EST, Tablet, [facility]/pharmacy #[id number], 180.3, cm, 10/22/19 10:14:00 EST, Height, 118.5, kg, 05/12/19 10:33:00 EDT, Dry Weight Start Date: 10/22/19 Status: Ordered ibuprofen 800 mg oral tablet 800 mg, 1, tablet, By Mouth, Every 8 hours, PRN, # 90 tablet, Refills 0, Tot. Refills 0, Maintenance, as needed for pain, 04/10/19 17:13:55 EDT, Route to Pharmacy Electronically, [id number], [facility] Start Date: 04/10/19 Stop Date: 05/10/19 Status: Ordered Insulin Syringe, BD Ultra-Fine 0.3 cc 31 G x 8 mm (5/16in) See Instructions, # 100 each, Refills 1, Tot. Refills 1, Maintenance, as directed for type 2 diabetes., 05/21/19 12:51:57 EDT, Compound Start Date: 05/21/19 Status: Ordered Lantus Solostar Pen 100 units/mL subcutaneous solution = 45 units, Subcutaneous Injection, 2 times a day, # 15 mL, 5 Refills, Maintenance, 12/03/19 10:59:00 EDT, Solution, [facility]/pharmacy #[id number], 180.3, cm, 11/12/19 15:07:00 EST, Height, 120.7, kg, 11/03/19 13:31:00 EST, Dry Weight Start Date: 12/03/19 Status: Ordered levothyroxine 0.112 mg oral tablet 2 tablet = 224 mcg, By Mouth, Daily, # 60 tablet, 5 Refills, Maintenance, 06/18/19 9:13:12 EDT, Tablet Start Date: 06/18/19 Stop Date: 12/15/19 Status: Ordered lisinopril 20 mg oral tablet 20 mg, 1, tablet, By Mouth, Daily, # 90 tablet, Refills 3, Tot. Refills 3, Maintenance, 01/20/18 13:36:03 EDT, Route to Pharmacy Electronically, [id number], [facility] Start Date: [...] 11/12/19 15:56:00 EST, Route to Pharmacy Electronically, [facility]/pharmacy #[id number], 180.3, cm, 11/12/19 15:07:00 EST, [...] Weight Start Date: 08/27/19 Status: Ordered Pen [place], 29 G x 12.7 mm BD Ultra [...]
--- OUTSIDE RECORDS SUMMARY | 2023-10-18 20:35 | XMS_ITS | Continuity of Care Document ---
Author Name Unknown Organization [facility] Address [address] [place] [address]- Care Team Providers Care Spinneret Cleaner Name Role Phone Efra Mejia MD Primary Care Physician [id number] Date[facility] - 06/13/[facility] [address] [place] [id number] Attending Physician: Juve Lopez MD Admitting Physician: Juve Lopez MD Referring Physician: Efra Mejia MD Allergies, Adverse Reactions, Alerts No Known Allergies Immunizations Given and Recorded Vaccine Date Status Refusal Reason SARS-CoV-2 mRNA (qyhfzvs-pyni-ftpor) vax 04/27/22 Recorded influenza virus vaccine, inactivated [...] 23-valent vaccine 8 04/01/12 Given 1Result Comment: [facility]#[id number] 2Result Comment: [07/31/2018] [facility]# [id number] 3Result Comment: [08/26/2015] done at [facility] 4Admin Note: VIM 03/17/12 5Admin Note: VIM 04/10/11 6Admin Note: VIM 08/03/08 7Admin Note: VIS GIVEN 04/10/13 8Admin Note: vis given dated 06/21/09 Medications ARIPiprazole 5 mg oral tablet 5 mg, 1, tablet, By Mouth, Daily, # 90 tablet, Refills 1, Tot. Refills 1, Maintenance, 03/01/23 10:12:00 EDT, Route to Pharmacy Electronically, [facility]/pharmacy #[id number], Partial fill upon patient [...] 10/11/22 12:01:00 EST, Route to Pharmacy Electronically, [id number], [...] AM, 0 Refills, Maintenance, 07/14/21 14:22:00 EDT, [place], Partial fill upon patient request if the [...] 03/27/23 17:30:00 EDT, Route to Pharmacy Electronically, [facility]/pharmacy #[id number], override needed for lost prescription, thanks., 181.5, cm, 03/07/23 10:11:0... Start Date: 03/27/23 Status: Ordered levothyroxine 0.112 mg oral tablet 2 tablet = 224 mcg, By Mouth, Daily, # 60 tablet, 2 Refills, Maintenance, 03/27/23 12:47:00 EDT, Tablet, [facility]/pharmacy #[id number], 181.5, cm, 03/07/23 10:11:00 EDT, Height, [...] Start Date: 07/13/21 Status: Ordered nystatin topical 813075 u/gm powder See Instructions, apply to stump 3 x day, # 120 Gm, 5 Refills, Maintenance, 04/23/23 15:43:00 EDT, Powder, [id number], Partial fill upon patient request if the prescription is for a schedule II opioid drug., apply to stump 3 x day, 181.5, cm... Start Date: 04/23/23 Status: Ordered nystatin topical 069507 u/gm powder See Instructions, apply to stump [...] capsule, 1 Refills, Maintenance,03/01/23 10:12:00 EDT, Capsule, [id number], Partial fill upon patient request if the prescription is for a schedule II opioid drug., 181.5, cm,... Start Date: 03/01/23 Stop Date: 08/28/23 Status: Ordered ramelteon 8 mg oral tablet 1 tablet = 8 mg, By Mouth, Daily at bedtime, # 90 tablet, 1 Refills, Maintenance, 03/01/23 10:13:00EDT, Tablet, [id number], Partial fill upon patient [...] in AM, 1 film sublingual in PM [id number], # 75 film, 1 Refills, Maintenance, 04/26/23 8:11:00 EDT, [facility]/pharmacy #[id number], 1.5 films sublingual in AM, 1 film sublingual in PM ; [id number], 181.5, cm, 04/23/23 15:02:... Start Date: 04/26/23 Status: Ordered tamsulosin 0.4 mg oral capsule 0.4 mg, 1, capsule, By Mouth, Daily, # 90 capsule, Refills 3, Tot. Refills 3, Maintenance, 12/20/2315:00:00 EDT, Route to Pharmacy Electronically, [facility]/pharmacy #[id number], Partial fill upon patient [...] Team Personnel Name: Cayla Herrera RN Position: [facility] ED RN W/OE and Tasks Member Role: Primary Care Nurse Name: Alka Lee RN Position: [facility] SN RN Member Role: Primary Care Nurse Name: Jaleel Lo RN Position: [facility] RN Member Role: Primary Care Nurse Name: Ivy Smith RN Position: [facility] RN Member Role: Primary Care Nurse Name: Efra Mejia MD Position: [facility] Physician - Primary Care Member Role: PCP Address: Address: [address] [place] [id number] Name: Devorah Johnson RN Position: [facility] RN Member Role: Primary Care Nurse Name: Dustin Chavez RN Position: [facility] RN Member Role: Primary Care Nurse Name: Litzy Weinberg RN Position: [facility] RN Member Role: Primary Care Nurse Name: Melanie Garay Position: [facility] RN Member Role: Primary Care Nurse Name: Yoselyn Patrick RN Position: [facility] RN Member Role: Primary Care Nurse Name: Michelle Akbar [place] Position: [facility] RN Member Role: Primary Care Nurse Name: Saundra Gonzalez Position: [facility] RN Member Role: Primary Care Nurse Name: Sofía Moreno RN Position: [facility] RN Member Role: Primary Care Nurse Name: Sary Tong RN Position: [facility] RN Member Role: Primary Care Nurse Name: Sophia Lomas RN Position: [facility] RN Member Role: Primary Care Nurse Name: Danielito Woo RN Position: [facility] Events Specialist Member Role: Primary Care Nurse Care Team Related Persons Name: TINY STEPHENS Address: home [address], [place] Name: FERNIE CUMMINS Address: [address], [place] Name: TINY CUMMINS Address: home [address], [place]
--- OUTSIDE RECORDS SUMMARY | 2023-10-18 20:35 | XMS_ITS | Continuity of Care Document ---
Author Name Unknown Organization [facility] ter Address [address] [place] [address]- Care Team Providers Care Coroner Name Role Phone Roberto CH, Efra Miramontes Primary Care Physician [phone] [place] [facility] [place] 02/22/21 - 04/05/[address] [address] Attending Physician: Hasmukh Piña MD Admitting Physician: Hasmukh Piña MD Referring Physician: Hasmukh Piña MD Allergies, Adverse Reactions, Alerts Substance Reaction [...] acel(Tdap) 7 03/05/11 Given 1Result Comment: [07/31/2018] [facility]# [id number] 2Result Comment: [08/26/2015] done at [facility] 3Admin Note: VIM 03/17/12 4Admin Note: [...] Gm, 5 Refills, Maintenance, 12/15/20 12:56:00 EDT, [place], [id number], Partial fill upon patient request [...] 10/27/20 10:24:00 EST, Route to Pharmacy Electronically, [facility]/pharmacy #[id number], Partial fill upon patient request [...] 5 Refills, Maintenance, 10/27/20 10:22:00 EST, Solution, [facility]/pharmacy #[id number], 183, cm, 10/27/20 8:41:00 EST, Height, 119, kg, 09/23/20 17:06:00 EST, Dry Weight Start Date: 10/27/20 Status: Ordered levothyroxine 0.112 mg oral tablet 2 tablet = 224 mcg, By Mouth, Daily, # 60 tablet, 5 Refills, Maintenance, 10/27/20 10:22:00 EST, Tablet, [facility]/pharmacy #[id number], 183, cm, 10/27/20 8:41:00 EST, Height, 119, kg, 09/23/20 17:06:00 EST, DryWeight Start Date: 10/27/20 Stop Date: 04/25/21 Status: Ordered Lidoderm 5% film 1 patch, Topically, Daily, # 30 patch, 0 Refills, Maintenance, 04/03/21 9:04:00 EDT, [facility]/pharmacy #[id number], Partial fill upon patient request if the prescription is for a schedule II opioid drug., 1 patch Topically Daily, 180, cm, 04/03/21 7:30:00 EDT, H... Start Date: 04/03/21 Status: Ordered lisinopril 20 mg oral tablet 40 mg, 2, tablet, By Mouth, Daily, # 60 tablet, Refills 5, Tot. Refills 5, Maintenance, 10/27/20 10:22:00 EST, Route to Pharmacy Electronically, [facility]/pharmacy #[id number], Partial fill upon patient request if the prescription is for a schedule II opioid drug... Start Date: 10/27/20 Status: Ordered Melatonin 5 mg oral tablet 1 tablet = 5 mg, By Mouth, Daily at bedtime, # 30 tablet, 5 Refills, Maintenance, 12/15/20 12:56:00EDT, Tablet, [facility]/pharmacy #[id number], Partial fill upon patient request if the prescription is for a schedule II opioid drug., 183, cm, 12/15/20 11:23:00 ED... Start Date: 12/15/20 Status: Ordered nystatin topical 754432 u/gm powder See Instructions, apply to stump daily, # 30 Gm, 5 Refills, Maintenance, 12/15/20 12:56:00 EDT, Powder, [facility]/pharmacy #[id number], Partial fill upon patient request if the prescription is for a schedule II opioid drug., apply to stump daily, 183, cm, ... Start Date: 12/15/20 Status: Ordered omeprazole 20 mg oral enteric coated capsule 1 capsule = 20 mg, By Mouth, Daily, # 30 capsule, 5 Refills, Maintenance, 10/27/20 10:22:00 EST, ECCapsule, [facility]/pharmacy #[id number], 183, cm, 10/27/20 8:41:00 EST, Height, 119, kg, 09/23/20 17:06:00 EST,Dry Weight Start Date: 10/27/20 Status: Ordered Pen [place], 29 G x 12.7 mm BD Ultra [...] 12/15/20 12:56:00 EDT, Route to Pharmacy Electronically, [facility]/pharmacy #[id number], 183, cm, 12/15/20 11:23:00 EDT, [...] 5 Refills, Maintenance, 12/15/20 12:38:00 EDT, Solution, [facility]/pharmacy #[id number], Partial fill upon patient request [...]
--- OUTSIDE RECORDS SUMMARY | 2023-10-18 20:35 | XMS_ITS | Continuity of Care Document ---
Author Name Unknown Organization [facility] Address [address] [place] [address]- Care Team Providers Care Toll Repairer Central Office Name Role Phone Roberto CH, Efra Miramontes Primary Care Physician [phone] [facility] Date(s): 09/26/21 - 09/28/[address] [address]- Encounter Diagnosis Cellulitis(Final) - 09/26/21 Wound infection(Final) - 09/26/21 History of diabetes mellitus(Final) - 09/26/21 Discharge Disposition: A-D/C Home Attending Physician: Yu CH, Galileo Admitting Physician: Rich Jang MD Referring Physician: Not on Staff, Referring MD Allergies, Adverse Reactions, Alerts No Known [...] Given 1Result Comment: [facility]#[id number] 2Result Comment: [07/31/2018] [facility]# [id number] 3Result Comment: [08/26/2015] done at [facility] 4Admin Note: VIM 03/17/12 5Admin Note: VIM 04/10/11 6Admin Note: VIM 08/03/08 7Admin Note: VIS GIVEN 04/10/13 8Admin Note: vis given dated 06/21/09 Medications Bactrim DS 800 mg-160 mg oral tablet 1 tablet, By Mouth, 2 times a day, for 5 days, # 10 tablet, 0 Refills, Acute 10/03/21 11:08:00 EST,09/28/21 11:08:00 EST, Tablet, [facility], Partial fill upon patient request if the prescription is for a schedule II opioid drug., 1 tab... Start Date: 09/28/21 Stop Date: 10/03/21 Status: Ordered donepezil 5 mg oral tablet 5 mg, 1, tablet, By Mouth, Daily, # 30 tablet, Refills 5, Tot. Refills 5, Maintenance, 06/02/21 14:20:00 EDT, Route to Pharmacy Electronically, [facility]/pharmacy #[id number], Partial fill upon patient request if the [...] AM, 0 Refills, Maintenance, 07/14/21 14:22:00 EDT, [place], Partial fill upon patient request if the [...] 08/31/21 11:39:00 EST, Route to Pharmacy Electronically, [facility]/pharmacy #[id number], Partial fill upon patient request if the prescription is for a schedule II... Start Date: 08/31/21 Status: Ordered gabapentin 400 mg oral capsule 400 mg, Capsule, By Mouth, 09/28/21 9:00:00 EST Start Date: 09/28/21 Stop Date: 09/28/21 Status: Completed Iodosorb 0.9% topical gel See Instructions, Continue wound care with iodosorb gel and 2x2 dressing daily to small wound Betadine pain to incision, # 1 each, 0 Refills, Maintenance, 09/28/21 18:43:00 EST, [facility]/pharmacy #[id number], Partial fill upon patient request if the prescripti... Start Date: 09/28/21 Status: Ordered levothyroxine 0.112 mg oral tablet 2 tablet = 224 mcg, By Mouth, Daily, # 60 tablet, 5 Refills, Maintenance, 10/27/20 10:22:00 EST, Tablet, [facility]/pharmacy #[id number], 183, cm, 10/27/20 8:41:00 EST, [...] Start Date: 07/13/21 Status: Ordered nystatin topical 179122 u/gm powder See Instructions, apply to stump [...] 5 Refills, Maintenance, 10/27/20 10:22:00 EST, ECCapsule, [facility]/pharmacy #[id number], 183, cm, 10/27/20 8:41:00 EST, Height, 119, kg, 09/23/20 17:06:00 EST,Dry Weight Start Date: 10/27/20 Status: Ordered prazosin 2 mg oral capsule 1 capsule = 2 mg, By Mouth, Daily at bedtime, # 270 capsule, 0 Refills, Maintenance, 07/13/21 22:12:00 EDT, Capsule, Partial fill upon patient request if the prescription is for a schedule II opioid drug. Start Date: 07/13/21 Status: Ordered ramelteon 8 mg oral tablet 1 tablet = 8 mg, By Mouth, Daily at bedtime, 0 Refills, Maintenance, 07/13/21 22:12:00 EDT, Partialfill upon patient request if the prescription is for a schedule II opioid drug. Start Date: 07/13/21 Status: Ordered tamsulosin 0.4 mg oral capsule 0.4 mg, 1, capsule, By Mouth, Daily, # 90 capsule, Refills 3, Tot. Refills 3, Maintenance, 07/06/2111:55:00 EDT, Route to Pharmacy Electronically, [facility]/pharmacy #[id number], Partial fill upon patient request if the prescription is for a schedule II opioid d... Start Date: 07/06/21 Status: Ordered Trulicity Pen 0.75 mg/0.5 mL subcutaneous solution 0.5 mL = 0.75 mg, Subcutaneous Injection, Every week, rotate injection sites, # 2 mL, 0 Refills, Maintenance, 07/06/21 12:35:00 EDT, Solution, [facility]/pharmacy #[id number], Partial fill upon patient request ifthe prescription is for a schedule II opioid drug.,... Start Date: 07/06/21 Status: Ordered Problem List Condition Effective Dates [...] 2seen by ortho 10/04 and 01/02 Results Orders for Microbiology Reports Name Date Blood Culture #2 09/26/21 Blood Culture 09/25/21 Microbiology Reports TEST:Blood Culture, Second Order STATUS:Unauthenticated BODY SITE: SOURCE:Blood COLLECTED DATE/TIME:09/26/21 1:43 AM Blood Culture, Second Order SPECIMEN DESCRIPTION : BLOOD L HAND SPECIAL REQUESTS : NONE CULTURE : NO GROWTH AFTER 48 HOURS REPORT STATUS : PRELIMINARY REPORT TEST:Blood Culture STATUS:Unauthenticated BODY SITE: SOURCE:Blood COLLECTED DATE/TIME:09/25/21 5:46 PM Blood Culture SPECIMEN DESCRIPTION : BLOOD NO SITE SPECIAL REQUESTS : NONE CULTURE : NO GROWTH 3 DAYS REPORT STATUS : PRELIMINARY REPORT Radiology Reports * Exam Date Time Procedure Performing Provider Status 09/25/21 6:15 PM Knee 1 or 2 Views Right Bharath Wong; Auth (Verified) Notes: (Knee 1 or 2 Views Right) Reason For Exam: Erythema RESULT: Knee 1 or 2 Views Right Knee 1 or 2 Views Right, views Hx of Present Illness: 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 No focal erosion is appreciated No arthritic changes. No evidence of joint effusion. Vascular calcifications. IMPRESSION: No radiographic evidence of osteomyelitis. WSN: [id number] Ordering Physician: Mariela Maguire Dictated By: Robel Wells MD Dictated Date/Time: 09/25/21 6:24 pm Reviewed By: Robel Wells MD Signed By: Robel Wells MD Signed Date/Time: 09/25/21 6:24 pm Transcribed By: CATARINO Transcribed Date/Time: 09/25/21 6:22 pm Vital Signs Most recent to oldest [Reference Range]: 1 2 3 Height 181.5 cm (09/28/21 12:39 PM) 181.5 cm (09/28/21 8:08 AM) 181.5 cm (09/28/21 4:32 AM) Weight 97 kg (09/26/21 5:00 AM) Oxygen Saturation [94-100 %] 97 % (09/28/21 12:39 PM) 96 % (09/28/21 8:08 AM) 95 % (09/28/21 4:32 AM) Pulse Rate [55-90 bpm] 70 bpm (09/28/21 12:39 PM) 70 bpm (09/28/21 8:08 AM) 67 bpm (09/28/21 4:32 AM) Blood Pressure [90-138/55-84 mm Hg] 116/68mm Hg (09/28/21 12:39 PM) 119/64mm Hg (09/28/21 8:08 AM) 112/52mm Hg (09/28/21 4:32 AM) Respiratory Rate [16-30 br/min] 18 br/min (09/28/21 12:39 PM) 18 br/min (09/28/21 9:59 AM) 18 br/min (09/28/21 8:59 AM) Temperature [96.8-100.4 DegF] 98.8 DegF (09/28/21 12:39 PM) 98.0 DegF (09/28/21 8:08 AM) 97.4 DegF (09/28/21 4:32 AM) Mode of Delivery (Oxygen) Room air (09/28/21 12:39 PM) Room air (09/28/21 8:08 AM) Room air (09/28/21 4:32 AM) Blood pressure sites Arm, left (09/28/21 12:39 PM) Arm, left (09/28/21 8:08 AM) Arm, left (09/28/21 4:32 AM) Temperature Route Oral (09/28/21 12:39 PM) Oral (09/28/21 8:08 AM) Oral (09/28/21 4:32 AM) Dry Weight 105 kg (09/26/21 3:23 AM) Weight Obtained Via Bed scale (09/26/21 3:23 AM) Social History Social History Type Response Tobacco Other: 3 cigars brenden y. Sex
--- OUTSIDE RECORDS SUMMARY | 2023-10-18 20:35 | XMS_ITS | Continuity of Care Document ---
Author Name Unknown Organization [facility] Address [address] [place] [address]- Care Team Providers Care Front Desk Attendant Name Role Phone Roberto CH, Efra Miramontes Primary Care Physician Encounter [facility] Date(s): 08/27/19 - 09/06/19 [facility] [address] [place] [address]- [facility] Attending Physician: Bobby Sandoval Admitting Physician: AdmBobby mckeon Referring Physician: AdmtrBobby Allergies, Adverse Reactions, Alerts Substance Reaction Severity [...] Comment: [07/31/2018] [facility]# [id number] 2Result Comment: [08/26/2015] done at [facility] 3Admin Note: VIM 03/17/12 4Admin Note: VIM [...] Maintenance, 07/02/16 16:06:12, Route to Pharmacy Electronically, [id number], [facility] Start Date: [...] day, # 90 tablet, 5 Refills, Maintenance, 05/12/19 11:21:50 EDT, Tablet Start Date: 05/12/19 Status: Ordered ibuprofen 800 mg oral tablet 800 mg, 1, tablet, By Mouth, Every 8 hours, PRN, # 90 tablet, Refills 0, Tot. Refills 0, Maintenance, as needed for pain, 04/10/19 17:13:55 EDT, Route to Pharmacy Electronically, [id number], [facility] Start Date: [...] Date: 07/24/19 Stop Date: 01/20/20 Status: Ordered levothyroxine 0.112 mg oral tablet 2 tablet = 224 mcg, By Mouth, Daily, # 60 tablet, 5 Refills, Maintenance, 06/18/19 9:13:12 EDT, Tablet Start Date: 06/18/19 Stop Date: 12/15/19 Status: Ordered lisinopril 20 mg oral tablet 20 mg, 1, tablet, By Mouth, Daily, # 90 tablet, Refills 3, Tot. Refills 3, Maintenance, 01/20/18 13:36:03 EDT, Route to Pharmacy Electronically, [id number], [facility] Start Date: [...] Weight Start Date: 08/27/19 Status: Ordered Pen [place], 29 G x 12.7 mm BD Ultra [...]
--- OUTSIDE RECORDS SUMMARY | 2023-10-18 20:35 | XMS_ITS | Continuity of Care Document ---
Author Name Unknown Organization [facility] Address [address] [place] [id number]- Care Team Providers Care Cook Ship Name Role Phone Roberto CH, Efra Miramontes Primary Care Physician Encounter [facility] [place] Date(s): 08/04/21 - 09/13/21 [facility] [address] [place] [address]- Attending Physician: Jeff Chandler MD Admitting Physician: Jeff Chandler MD Referring Physician: Soo Sun MD Allergies, Adverse Reactions, Alerts Substance Reaction [...] 23-valent vaccine 8 04/01/12 Given 1Result Comment: [facility]#[id number] 2Result Comment: [07/31/2018] [facility]# [id number] 3Result Comment: [08/26/2015] done at [facility] 4Admin Note: VIM 03/17/12 5Admin Note: VIM 04/10/11 6Admin Note: VIM 08/03/08 7Admin Note: VIS GIVEN 04/10/13 8Admin Note: vis given dated 06/21/09 Medications donepezil 5 mg oral tablet 5 mg, 1, tablet, By Mouth, Daily, # 30 tablet, Refills 5, Tot. Refills 5, Maintenance, 06/02/21 14:20:00 EDT, Route to Pharmacy Electronically, [facility]/pharmacy #[id number], Partial fill upon patient request if the prescription is for a schedule II opioid drug.... Start Date: 06/02/21 Status: Ordered ferrous sulfate 325 mg oral enteric coated tablet 325 mg, By Mouth, Daily, Refills 3, Maintenance, 07/19/21 10:08:00 EDT, Partial fill upon patient request if the prescription is for a schedule II opioid drug. Start Date: 07/19/21 Status: Ordered ferrous sulfate 325 mg oral enteric coated tablet 325 mg, 1, tablet, By Mouth, Daily, # 30 tablet, Refills 5, Tot. Refills 5, Maintenance, 08/31/21 11:40:00 EST, Route to Pharmacy Electronically, [facility]/pharmacy #[id number], Partial fill upon patient requestif the prescription is for a schedule II opioid valencia... Start Date: 08/31/21 Status: Ordered fluticasone 50 mcg/inh nasal spray 2 sprays, Nares, Both, Daily in AM, 0 Refills, Maintenance, 07/14/21 14:22:00 EDT, [place], Partial fill upon patient request if the [...] 08/31/21 11:39:00 EST, Route to Pharmacy Electronically, [facility]/pharmacy #[id number], Partial fill upon patient request if the prescription is for a schedule II... Start Date: 08/31/21 Status: Ordered levothyroxine 0.112 mg oral tablet 2 tablet = 224 mcg, By Mouth, Daily, # 60 tablet, 5 Refills, Maintenance, 10/27/20 10:22:00 EST, Tablet, [facility]/pharmacy #[id number], 183, cm, 10/27/20 8:41:00 EST, [...] Start Date: 07/13/21 Status: Ordered nystatin topical 736950 u/gm powder See Instructions, apply to stump 3 x day, # 120 Gm, 5 Refills, Maintenance, 07/06/21 12:35:00 EDT, Powder, [facility]/pharmacy #[id number], Partial fill upon patient request if the prescription is for a schedule II opioid drug., apply to stump 3 x day, 180, cm,... Start Date: 07/06/21 Status: Ordered omeprazole 20 mg oral enteric coated capsule 1 capsule = 20 mg, By Mouth, Daily, # 30 capsule, 5 Refills, Maintenance, 10/27/20 10:22:00 EST, ECCapsule, [facility]/pharmacy #[id number], 183, cm, 10/27/20 8:41:00 EST, [...] Maintenance, 07/06/2111:55:00 EDT, Route to Pharmacy Electronically, [facility]/pharmacy #[id number], Partial fill upon patient request if the prescription is for a schedule II opioid d... Start Date: 07/06/21 Status: Ordered Trulicity Pen 0.75 mg/0.5 mL subcutaneous solution 0.5 mL = 0.75 mg, Subcutaneous Injection, Every week, rotate injection sites, # 2 mL, 0 Refills, Maintenance, 07/06/21 12:35:00 EDT, Solution, [facility]/pharmacy #[id number], Partial fill upon patient [...]
--- OUTSIDE RECORDS SUMMARY | 2023-10-18 20:35 | XMS_ITS | Continuity of Care Document ---
Author Name Unknown Organization [facility] Address [address] [place] [address]- Care Team Providers Care Lead Architect Name Role Phone Roberto CH, Efra Miramontes Primary Care Physician [phone] [place] [facility] [place]23 [place] 03/06/23 [facility] [address] [place] [address]- Allergies, Adverse Reactions, Alerts No Known Allergies Immunizations Given and Recorded Vaccine Date Status Refusal Reason SARS-CoV-2 mRNA ([id number]) vax 04/27/22 Recorded influenza virus vaccine, inactivated [...] 23-valent vaccine 8 04/01/12 Given 1Result Comment: [facility]#[id number] 2Result Comment: [07/31/2018] [facility]# [id number] 3Result Comment: [08/26/2015] done at [facility] 4Admin Note: VIM 03/17/12 5Admin Note: VIM 04/10/11 6Admin Note: VIM 08/03/08 7Admin Note: VIS GIVEN 04/10/13 8Admin Note: vis given dated 06/21/09 Medications ARIPiprazole 5 mg oral tablet 5 mg, 1, tablet, By Mouth, Daily, # 90 tablet, Refills 1, Tot. Refills 1, Maintenance, 03/01/23 10:12:00 EDT, Route to Pharmacy Electronically, [facility]/pharmacy #[id number], Partial fill upon patient request [...] 10/11/22 12:01:00 EST, Route to Pharmacy Electronically, [facility]/pharmacy #[id number], Partial fill upon patient request [...] 1 tablet = 200 mg, By Mouth, Every week, for 28 days, # 4 tablet, 0 Refills, Acute 03/19/23 17:50:00 EDT, 02/19/23 17:50:00 EDT, Tablet, [facility]/pharmacy #[id number], Partial fill upon patient request if the prescription is for a schedule II opioid drug., 181.5... Start Date: 02/19/23 Stop Date: 03/19/23 Status: Ordered fluticasone 50 mcg/inh nasal spray 2 sprays, Nares, Both, Daily in AM, 0 Refills, Maintenance, 07/14/21 14:22:00 EDT, [place], Partial fill upon patient request if the [...] 01/30/23 16:37:00 EDT, Route to Pharmacy Electronically, [facility]/pharmacy #[id number], override needed for lost prescription, thanks., 181.5, cm, 10/26/22 11:39:0... Start Date: 01/30/23 Status: Ordered levothyroxine 0.112 mg oral tablet 2 tablet = 224 mcg, By Mouth, Daily, # 60 tablet, 2 Refills, Maintenance, 12/19/22 16:00:00 EDT, Tablet, [facility]/pharmacy #[id number], 181.5, cm, 10/26/22 11:39:00 EST, [...] Start Date: 07/13/21 Status: Ordered nystatin topical 291662 u/gm powder See Instructions, apply to stump [...] in AM, 1 film sublingual in PM [id number], # 75 film, 1 Refills, Maintenance, 03/01/23 10:12:00 EDT, [facility]/pharmacy #[id number], 1.5 films sublingual in AM, 1 film sublingual in PM ; [id number], 181.5, cm, 02/05/23 12:41... Start Date: 03/01/23 Status: Ordered tamsulosin 0.4 mg oral capsule 0.4 mg, 1, capsule, By Mouth, Daily, # 90 capsule, Refills 3, Tot. Refills 3, Maintenance, 12/20/2315:00:00 EDT, Route to Pharmacy Electronically, [facility]/pharmacy #[id number], Partial fill upon patient request [...] Team Personnel Name: Cayla Herrera RN Position: [facility] ED RN W/OE and Tasks Member Role: Primary Care Nurse Name: Alka Lee RN Position: [facility] RN Member Role: Primary Care Nurse Name: Jaleel Lo RN Position: [facility] RN Member Role: Primary Care Nurse Name: Ivy Smith RN Position: [facility] RN Member Role: Primary Care Nurse Name: Efra Mejia MD Position: [facility] Physician - Primary Care Member Role: PCP Address: Address: [address] [place] [id number] Name: Devorah Johnson RN Position: [facility] RN Member Role: Primary Care Nurse Name: Dustin Chavez RN Position: [facility] RN Member Role: Primary Care Nurse Name: Litzy Weinberg RN Position: [facility] RN Member Role: Primary Care Nurse Name: Melanie Garay Position: [facility] RN Member Role: Primary Care Nurse Name: Michelle Akbar [place] Position: [facility] RN Member Role: Primary Care Nurse Name: Saundra Gonzalez Position: [facility] RN Member Role: Primary Care Nurse Name: Sofía oMreno RN Position: [facility] RN Member Role: Primary Care Nurse Name: Sary Tnog RN Position: [facility] RN Member Role: Primary Care Nurse Name: Sophia Lomas RN Position: [facility] RN Member Role: Primary Care Nurse Name: Danielito Woo RN Position: [facility] Personal Care Home Administrator Member Role: Primary Care Nurse Care Team Related Persons Name: TINY STEPHENS Address: home [address] [place], [place] Name: FERNIE CUMMINS Address: [address], [place] Name: TINY CUMMINS Address: home [address], [place]
--- OUTSIDE RECORDS SUMMARY | 2023-10-18 20:35 | XMS_ITS | Continuity of Care Document ---
Author Name Unknown Organization [facility] Address [address] [place] [address]- Care Team Providers Care Grainer Machine Name Role Phone Efra Mejia MD Primary Care Physician [place] [facility] [place] 09/30/20 - 11/10/20 [facility] [address] [place] [address]- Attending Physician: Efra Mejia MD Allergies, Adverse [...] 7 03/05/11 Given 1Result Comment: [07/31/2018] [facility]# [id number] 2Result Comment: [08/26/2015] done at [facility] 3Admin Note: VIM 03/17/12 4Admin Note: VIM 04/10/11 5Admin Note: VIS GIVEN 04/10/13 6Admin Note: vis given dated 06/21/09 7Admin Note: VIM 08/03/08 Medications albuterol CFC free 90 mcg/inh inhalation aerosol 1, puffs, Inhalation, 4 times a day, PRN, # 18 Gm, Refills 0, Tot. Refills 0, Maintenance, 12/02/2009:56:00 EDT, Aerosol, Route to Pharmacy Electronically, [id number], [facility]/pharmacy #[id number], 180.3, cm, 11/12/19 15:07:00 EST, He... [...] Maintenance, 07/02/16 16:06:12, Route to Pharmacy Electronically, [id number], [facility] #[facility] Start Date: [...] 10/27/20 10:24:00 EST, [facility], [facility] 5 Refills, Maintenance, 10/27/20 10:22:00 EST, Solution, [facility]/pharmacy #[id number], 183, cm, 10/27/20 8:41:00 EST, Height, 119, kg, 09/23/20 17:06:00 EST, Dry Weight Start Date: 10/27/20 Status: Ordered levothyroxine 0.112 mg oral tablet 2 tablet = 224 mcg, By Mouth, Daily, # 60 tablet, 5 Refills, Maintenance, 10/27/20 10:22:00 EST, Tablet, [facility]/pharmacy #[id number], 183, cm, 10/27/20 8:41:00 EST, Height, 119, kg, 09/23/20 17:06:00 EST, DryWeight Start Date: 10/27/20 Stop Date: 04/25/21 Status: Ordered lisinopril 20 mg oral tablet 40 mg, 2, tablet, By Mouth, Daily, # 60 tablet, Refills 5, Tot. Refills 5, Maintenance, 10/27/20 10:22:00 EST, Route to Pharmacy Electronically, [facility]/pharmacy #[id number], Partial fill upon patient request if the prescription is for a schedule II opioid drug... Start Date: 10/27/20 Status: Ordered MiraLax oral powder for reconstitution = 17 Gm, By Mouth, Daily, dissolve in water before taking, # 527 Gm, 5 Refills, Maintenance, 10/27/20 10:23:00 EST, REC Powder, [facility]/pharmacy #[id number], 17 Gm By Mouth Daily,Instr:dissolve in water beforetaking, 183, cm, 10/27/20 8:41:00 EST, Height, 119,... Start Date: 10/27/20 Status: Ordered omeprazole 20 mg oral enteric coated capsule 1 capsule = 20 mg, By Mouth, Daily, # 30 capsule, 5 Refills, Maintenance, 10/27/20 10:22:00 EST, ECCapsule, [facility]/pharmacy #[id number], 183, cm, 10/27/20 8:41:00 EST, Height, 119, kg, 09/23/20 17:06:00 EST,Dry Weight Start Date: 10/27/20 Status: Ordered Pen [place], 29 G x 12.7 mm BD Ultra Fine See Instructions, # 1 box, Refills 3, Tot. Refills 3, Maintenance, use with NOvolog Pen injection twice daily, 06/18/19 9:42:43 EDT, Compound Start Date: 06/18/19 Status: Ordered tamsulosin 0.4 mg oral capsule 0.4 mg, 1, capsule, By Mouth, Daily, # 30 capsule, Refills 11, Tot. Refills 11, Maintenance, 10/27/20 10:23:00 EST, Route to Pharmacy Electronically, [facility]/pharmacy #[id number], 183, cm, 10/27/20 8:41:00 EST, Height, 119, kg, 09/23/20 17:06:00 EST, Dry Weight Start Date: 2/11/21 Status: Ordered Walker See Instructions, # 1 [...]
--- OUTSIDE RECORDS SUMMARY | 2023-10-18 20:35 | XMS_ITS | Continuity of Care Document ---
Author Name Unknown Organization [facility] Address [address] [place] [address]- Care Team Providers Care Roll Grinder Operator Name Role Phone Efra Mejia MD Primary Care Physician [place] [facility] [place] 02[place]/21 [facility] [address] [place] [address]- Attending Physician: Efra Mejia MD Allergies, Adverse [...] Given 1Result Comment: [07/31/2018] [facility]# [id number] 2Result Comment: [08/26/2015] done at [facility] 3Admin Note: VIM 03/17/12 4Admin Note: VIM 04/10/11 5Admin Note: VIS GIVEN 04/10/13 6Admin Note: vis given dated 06/21/09 7Admin Note: VIM 08/03/08 Medications albuterol CFC free 90 mcg/inh inhalation aerosol 1, puffs, Inhalation, 4 times a day, PRN, # 18 Gm, Refills 0, Tot. Refills 0, Maintenance, 12/02/2009:56:00 EDT, Aerosol, Route to Pharmacy Electronically, [id number], [facility]/pharmacy #[id number], 180.3, cm, 11/12/19 15:07:00 EST, He... [...] Gm, 5 Refills, Maintenance, 12/15/20 12:56:00 EDT, [place], [facility]/pharmacy #[id number], Partial fill upon patient request if [...] Maintenance, 07/02/16 16:06:12, Route to Pharmacy Electronically, [id number], [facility] #[facility] Start Date: [...] 10/27/20 10:24:00 EST, Route to Pharmacy Electronically, [facility]/pharmacy #[id number], Partial fill upon patient request if [...] 5 Refills, Maintenance, 10/27/20 10:22:00 EST, Solution, [facility]/pharmacy #[id number], 183, cm, 10/27/20 8:41:00 EST, Height, 119, kg, 09/23/20 17:06:00 EST, Dry Weight Start Date: 10/27/20 Status: Ordered levothyroxine 0.112 mg oral tablet 2 tablet = 224 mcg, By Mouth, Daily, # 60 tablet, 5 Refills, Maintenance, 10/27/20 10:22:00 EST, Tablet, [facility]/pharmacy #[id number], 183, cm, 10/27/20 8:41:00 EST, Height, 119, kg, 09/23/20 17:06:00 EST, DryWeight Start Date: 10/27/20 Stop Date: 04/25/21 Status: Ordered lisinopril 20 mg oral tablet 40 mg, 2, tablet, By Mouth, Daily, # 60 tablet, Refills 5, Tot. Refills 5, Maintenance, 10/27/20 10:22:00 EST, Route to Pharmacy Electronically, [facility]/pharmacy #[id number], Partial fill upon patient request if the prescription is for a schedule II opioid drug... Start Date: 10/27/20 Status: Ordered Melatonin 5 mg oral tablet 1 tablet = 5 mg, By Mouth, Daily at bedtime, # 30 tablet, 5 Refills, Maintenance, 12/15/20 12:56:00EDT, Tablet, [facility]/pharmacy #[id number], Partial fill upon patient request if the prescription is for a schedule II opioid drug., 183, cm, 12/15/20 11:23:00 ED... Start Date: 12/15/20 Status: Ordered MiraLax oral powder for reconstitution = 17 Gm, By Mouth, Daily, dissolve in water before taking, # 527 Gm, 5 Refills, Maintenance, 10/27/20 10:23:00 EST, REC Powder, [facility]/pharmacy #[id number], 17 Gm By Mouth Daily,Instr:dissolve in water beforetaking, 183, cm, 10/27/20 8:41:00 EST, Height, 119,... Start Date: 10/27/20 Status: Ordered nystatin topical 809460 u/gm powder See Instructions, apply to stump daily, # 30 Gm, 5 Refills, Maintenance, 12/15/20 12:56:00 EDT, Powder, [facility]/pharmacy #[id number], Partial fill upon patient request if the prescription is for a schedule II opioid drug., apply to stump daily, 183, cm, 04/01/2... Start Date: 12/15/20 Status: Ordered omeprazole 20 mg oral enteric coated capsule 1 capsule = 20 mg, By Mouth, Daily, # 30 capsule, 5 Refills, Maintenance, 10/27/20 10:22:00 EST, ECCapsule, [facility]/pharmacy #[id number], 183, cm, 10/27/20 8:41:00 EST, Height, 119, kg, 09/23/20 17:06:00 EST,Dry Weight Start Date: 10/27/20 Status: Ordered Pen [place], 29 G x 12.7 mm BD Ultra [...] 12/15/20 12:56:00 EDT, Route to Pharmacy Electronically, [facility]/pharmacy #[id number], 183, cm, 12/15/20 11:23:00 EDT, Height, [...] 5 Refills, Maintenance, 12/15/20 12:38:00 EDT, Solution, [facility]/pharmacy #[id number], Partial fill upon patient request if [...]
--- OUTSIDE RECORDS SUMMARY | 2023-10-18 20:35 | XMS_ITS | Continuity of Care Document ---
Author Name Unknown Organization [facility] Address [address] [place] [address]- Care Team Providers Care Staple Side Laster Name Role Phone Efra Mejia MD Primary Care Physician [place] [facility] [place]19/20 - 05/19/20 [facility] [address] [place] [address]- [facility] Allergies, Adverse Reactions, Alerts Substance Reaction [...] acel(Tdap) 7 03/05/11 Given 1Result Comment: [07/31/2018] [facility]# [id number] 2Result Comment: [08/26/2015] done at [facility] 3Admin Note: VIM 03/17/12 4Admin Note: VIM 04/10/11 5Admin Note: VIS GIVEN 04/10/13 6Admin Note: vis given dated 06/21/09 7Admin Note: VIM 08/03/08 Medications albuterol CFC free 90 mcg/inh inhalation aerosol 1, puffs, Inhalation, 4 times a day, PRN, # 18 Gm, Refills 0, Tot. Refills 0, Maintenance, 12/02/2009:56:00 EDT, Aerosol, Route to Pharmacy Electronically, [id number], [facility]/pharmacy #[id number], 180.3, cm, 11/12/19 15:07:00 [...] 1 Refills, Maintenance, 11/12/19 10:02:00 EST, Gel, [facility]/pharmacy #[id number], 180.3, cm, 11/12/19 8:43:00 EST, Height, [...] Maintenance, 07/02/16 16:06:12, Route to Pharmacy Electronically, [id number], [facility] #[facility] Start Date: [...] 5 Refills, Maintenance, 10/22/19 10:55:00 EST, Tablet, [facility]/pharmacy #[id number], 180.3, cm, 10/22/19 10:14:00 EST, Height, 118.5, kg, 05/12/19 10:33:00 EDT, Dry Weight Start Date: 10/22/19 Status: Ordered ibuprofen 800 mg oral tablet 800 mg, 1, tablet, By Mouth, Every 8 hours, PRN, # 90 tablet, Refills 0, Tot. Refills 0, Maintenance, as needed for pain, 04/10/19 17:13:55 EDT, Route to Pharmacy Electronically, [id number], [facility] #36 Start Date: 04/10/19 Stop Date: 05/10/19 Status: Ordered Insulin Syringe, BD Ultra-Fine 0.3 cc 31 G x 8 mm (01/29in) See Instructions, # 100 each, Refills 1, Tot. Refills 1, Maintenance, as directed for type 2 diabetes., 05/21/19 12:51:57 EDT, Compound Start Date: 05/21/19 Status: Ordered Lantus Solostar Pen 100 units/mL subcutaneous solution = 60 units, Subcutaneous Injection, 2 times a day, # 15 mL, 5 Refills, Maintenance, 01/19/20 15:07:00 EDT, Solution, [facility]/pharmacy #[id number], 180.3, cm, 01/19/20 14:07:00 EDT, Height, [...] 01/20/18 13:36:03 EDT, Route to Pharmacy Electronically, [id number], [facility] #[facility] Start Date: 01/20/18 Stop Date: 01/15/19 Status: Ordered Mavyret By Mouth, Daily, 0 Refills, Maintenance, 05/04/20 11:57:00 EDT Start Date: 05/04/20 Status: Ordered Mavyret 100 mg-40 mg oral tablet 3 tablet, By Mouth, Daily, x 8 weeks, # 84 tablet, 1 Refills, Maintenance, 02/05/20 14:18:00 EDT, Tablet, [facility], 3 tablet By Mouth Daily,Instr:x [...] Weight Start Date: 08/27/19 Status: Ordered Pen [place], 29 G x 12.7 mm BD Ultra [...]
--- OUTSIDE RECORDS SUMMARY | 2023-10-18 20:35 | XMS_ITS | Continuity of Care Document ---
Author Name Unknown Organization [facility] Address [address] [place] [address]- Care Team Providers Care Cost And Sales Record Supervisor Name Role Phone Efra Mejia MD Primary Care Physician [phone] [place] [facility] [place]/27/23 - 06/26/23 [facility] [address] [place] [address]- Allergies, Adverse Reactions, Alerts No Known Allergies Immunizations Given and Recorded Vaccine Date Status Refusal Reason SARS-CoV-2 mRNA (nlqbnad-auvr-tllcg) vax 04/27/22 Recorded influenza virus vaccine, inactivated [...] 23-valent vaccine 8 04/01/12 Given 1Result Comment: [facility]#[id number] 2Result Comment: [07/31/2018] [facility]# [id number] 3Result Comment: [08/26/2015] done at [facility] 4Admin Note: VIM 03/17/12 5Admin Note: VIM 04/10/11 6Admin Note: VIM 08/03/08 7Admin Note: VIS GIVEN 04/10/13 8Admin Note: vis given dated 06/21/09 Medications ARIPiprazole 5 mg oral tablet 5 mg, 1, tablet, By Mouth, Daily, # 90 tablet, Refills 1, Tot. Refills 1, Maintenance, 03/01/23 10:12:00 EDT, Route to Pharmacy Electronically, [facility]/pharmacy #[id number], Partial fill upon patient request [...] 12:01:00 EST, Route to Pharmacy Electronically, [facility]/pharmacy #[id number], Partial fill upon patient request [...] AM, 0 Refills, Maintenance, 07/14/21 14:22:00 EDT, [place], Partial fill upon patient request if the [...] 17:30:00 EDT, Route to Pharmacy Electronically, [facility]/pharmacy #[id number], override needed for lost prescription, thanks., 181.5, cm, 03/07/23 10:11:0... Start Date: 03/27/23 Status: Ordered levothyroxine 0.112 mg oral tablet 2 tablet = 224 mcg, By Mouth, Daily, # 60 tablet, 2 Refills, Maintenance, 03/27/23 12:47:00 EDT, Tablet, [facility]/pharmacy #[id number], 181.5, cm, 03/07/23 10:11:00 EDT, Height, [...] Start Date: 07/13/21 Status: Ordered nystatin topical 078543 u/gm powder See Instructions, apply to stump 3 x day, # 120 Gm, 5 Refills, Maintenance, 04/23/23 15:43:00 EDT, Powder, [facility]/pharmacy #[id number], Partial fill upon patient request if the prescription is for a schedule II opioid drug., apply to stump 3 x day, 181.5, cm... Start Date: 04/23/23 Status: Ordered nystatin topical 029234 u/gm powder See Instructions, apply to stump 3 x day, # 120 Gm, 5 Refills, Maintenance, 07/06/21 12:35:00 EDT, Powder, [facility]/pharmacy #[id number], Partial fill upon patient request if the prescription is for a schedule II opioid drug., apply to stump 3 x day, 180, cm,... Start Date: 07/06/21 Status: Ordered omeprazole 20 mg oral enteric coated capsule 1 capsule = 20 mg, By Mouth, Daily, # 30 capsule, 5 Refills, Maintenance, 01/30/23 13:42:00 EDT, ECCapsule, [facility]/pharmacy #[id number], 181.5, cm, 10/26/22 11:39:00 EST, Height, 103, kg, 10/26/22 11:39:00 EST, Dry Weight Start Date: 01/30/23 Status: Ordered prazosin 2 mg oral capsule 1 capsule = 2 mg, By Mouth, Daily at bedtime, dose reduction, # 90 capsule, 1 Refills, Maintenance,06/25/23 10:14:00 EDT, Capsule, [facility]/pharmacy #[id number], Partial fill upon patient request if the prescription is for a schedule II opioid drug., 181.5, cm,... Start Date: 06/25/23 Stop Date: 12/22/23 Status: Ordered ramelteon 8 mg oral tablet 1 tablet = 8 mg, By Mouth, Daily at bedtime, # 90 tablet, 1 Refills, Maintenance, 06/25/23 10:14:00EDT, Tablet, [facility]/pharmacy #[id number], Partial fill upon patient request [...] 0 Refills, Maintenance, 06/25/23 10:13:00 EDT, [facility]/pharmacy #[id number], [id number], 1.5 films sublingual in AM, 1 film sublingual in PM, 181.5, cm, 06/06/23 16:27:00 EDT, .. Start Date: 06/25/23 Status: Ordered tamsulosin 0.4 mg oral capsule 0.4 mg, 1, capsule, By Mouth, Daily, # 90 capsule, Refills 3, Tot. Refills 3, Maintenance, 12/20/2315:00:00 EDT, Route to Pharmacy Electronically, [facility]/pharmacy #[id number], Partial fill upon patient request if the [...] Team Personnel Name: Cayla Herrera RN Position: [facility] ED RN W/OE and Tasks Member Role: Primary Care Nurse Name: Alka Lee RN Position: [facility] RN Member Role: Primary Care Nurse Name: Jaleel Lo RN Position: S RN Member Role: Primary Care Nurse Name: Ivy Smith RN Position: [facility] RN Member Role: Primary Care Nurse Name: Efra Mejia MD Position: [facility] Physician - Primary Care Member Role: PCP Address: Address: [address] [place] [id number] Name: Devorah Johnson RN Position: [facility] RN Member Role: Primary Care Nurse Name: Dustin Chavez RN Position: [facility] RN Member Role: Primary Care Nurse Name: Litzy Weinberg RN Position: [facility] RN Member Role: Primary Care Nurse Name: Melanie Garay Position: [facility] RN Member Role: Primary Care Nurse Name: Yoselyn Patrick RN Position: [facility] RN Member Role: Primary Care Nurse Name: Michelle Akbar [place] Position: [facility] RN Member Role: Primary Care Nurse Name: Saundra Gonzaelz Position: [facility] RN Member Role: Primary Care Nurse Name: Sofía Moreno RN Position: [facility] RN Member Role: Primary Care Nurse Name: Sary Tong RN Position: [facility] RN Member Role: Primary Care Nurse Name: Danielito Woo RN Position: [facility] Representative Member Role: Primary Care Nurse Care Team Related Persons Name: PHILIPTINY OCRRAL Address: home [address] [place], [place] Name: FERNIE CUMMINS Address: home [address] [place], [place] Name: TINY CUMMINS Address: home [address] [place], [place]
--- OUTSIDE RECORDS SUMMARY | 2023-10-18 20:35 | XMS_ITS | Continuity of Care Document ---
Author Name Unknown Organization [facility] Address [address] [place] [address]- Care Team Providers Care Security Threat Analyst Name Role Phone Efra Mejia MD Primary Care Physician [phone] Encounter [facility] Date(s): 03/31/20 - 04/30/20 [facility] [address] [place] [address]- [facility] Allergies, Adverse Reactions, Alerts Substance Reaction Severity [...] 7 03/05/11 Given 1Result Comment: [07/31/2018] [facility]# [id number] 2Result Comment: [08/26/2015] done at [facility] 3Admin Note: VIM 03/17/12 4Admin Note: VIM 04/10/11 5Admin Note: VIS GIVEN 04/10/13 6Admin Note: vis given dated 06/21/09 7Admin Note: VIM 08/03/08 Medications albuterol CFC free 90 mcg/inh inhalation aerosol 1, puffs, Inhalation, 4 times a day, PRN, # 18 Gm, Refills 0, Tot. Refills 0, Maintenance, 12/02/2009:56:00 EDT, Aerosol, Route to Pharmacy Electronically, [id number], [facility]/pharmacy #[id number], 180.3, cm, 11/12/19 15:07:00 EST, He... [...] 1 Refills, Maintenance, 11/12/19 10:02:00 EST, Gel, [facility]/pharmacy #[id number], 180.3, cm, 11/12/19 8:43:00 EST, Height, [...] Maintenance, 07/02/16 16:06:12, Route to Pharmacy Electronically, [id number], [facility] #[facility] Start Date: [...] 5 Refills, Maintenance, 10/22/19 10:55:00 EST, Tablet, [facility]/pharmacy #[id number], 180.3, cm, 10/22/19 10:14:00 EST, Height, 118.5, kg, 05/12/19 10:33:00 EDT, Dry Weight Start Date: 10/22/19 Status: Ordered ibuprofen 800 mg oral tablet 800 mg, 1, tablet, By Mouth, Every 8 hours, PRN, # 90 tablet, Refills 0, Tot. Refills 0, Maintenance, as needed for pain, 04/10/19 17:13:55 EDT, Route to Pharmacy Electronically, [id number], [facility] #[facility] Start Date: [...] 5 Refills, Maintenance, 01/12/20 14:27:00 EDT, Tablet, [facility]/pharmacy #2339, 180.3, cm, 01/12/20 13:41:00 EDT, Height, 120.7, kg, 11/03/19 13:31:00EST, Dry Weight Start Date: 01/12/20 Status: Ordered Lantus Solostar Pen 100 units/mL subcutaneous solution = 60 units, Subcutaneous Injection, 2 times a day, # 15 mL, 5 Refills, Maintenance, 01/19/20 15:07:00 EDT, Solution, [facility]/pharmacy #[id number], 180.3, cm, 01/19/20 14:07:00 EDT, Height, [...] 01/20/18 13:36:03 EDT, Route to Pharmacy Electronically, [id number], [facility] #[facility] Start Date: 01/20/18 Stop Date: 01/15/19 Status: Ordered Mavyret 100 mg-40 mg oral tablet 3 tablet, By Mouth, Daily, x 8 weeks, # 84 tablet, 1 Refills, Maintenance, 02/05/20 14:18:00 EDT, Tablet, [facility], 3 tablet By [...] 11/12/19 15:56:00 EST, Route to Pharmacy Electronically, [facility]/pharmacy #[id number], 180.3, cm, 11/12/19 15:07:00 EST, Height, [...] Weight Start Date: 08/27/19 Status: Ordered Pen [place], 29 G x 12.7 mm BD Ultra [...]
--- OUTSIDE RECORDS SUMMARY | 2023-10-18 20:35 | XMS_ITS | Continuity of Care Document ---
Author Name Unknown Organization [facility] Address [address] [place] [address]- Care Team Providers Care Auger Machine Offbearer Name Role Phone Efra Mejia MD Primary Care Physician Encounter [facility] Date(s): 05/06/20 - 05/13/20 [facility] [address] [place] [address]- [facility] Encounter Diagnosis Localized swelling of left foot(Discharge Diagnosis) - 05/06/20 Multiple joint pain(Discharge Diagnosis) - 05/06/20 Attending Physician: Kalli Becker MD Allergies, Adverse Reactions, Alerts Substance Reaction [...] acel(Tdap) 7 03/05/11 Given 1Result Comment: [07/31/2018] [facility]# [id number] 2Result Comment: [08/26/2015] done at [facility] 3Admin Note: VIM 03/17/12 4Admin Note: VIM 04/10/11 5Admin Note: VIS GIVEN 04/10/13 6Admin Note: vis given dated 06/21/09 7Admin Note: VIM 08/03/08 Medications albuterol CFC free 90 mcg/inh inhalation aerosol 1, puffs, Inhalation, 4 times a day, PRN, # 18 Gm, Refills 0, Tot. Refills 0, Maintenance, 12/02/2009:56:00 EDT, Aerosol, Route to Pharmacy Electronically, [id number], [facility]/pharmacy #[id number], 180.3, cm, 11/12/19 15:07:00 [...] 1 Refills, Maintenance, 11/12/19 10:02:00 EST, Gel, [facility]/pharmacy #[id number], 180.3, cm, 11/12/19 8:43:00 EST, [...] Maintenance, 07/02/16 16:06:12, Route to Pharmacy Electronically, [id number], [facility] #[facility] Start Date: [...] 5 Refills, Maintenance, 10/22/19 10:55:00 EST, Tablet, [facility]/pharmacy #2339, 180.3, cm, 10/22/19 10:14:00 EST, Height, 118.5, kg, 05/12/19 10:33:00 EDT, Dry Weight Start Date: 10/22/19 Status: Ordered ibuprofen 800 mg oral tablet 800 mg, 1, tablet, By Mouth, Every 8 hours, PRN, # 90 tablet, Refills 0, Tot. Refills 0, Maintenance, as needed for pain, 04/10/19 17:13:55 EDT, Route to Pharmacy Electronically, [id number], [facility] #[facility] Start Date: [...] 5 Refills, Maintenance, 01/19/20 15:07:00 EDT, Solution, [facility]/pharmacy #2339, 180.3, cm, 01/19/20 14:07:00 EDT, Height, [...] 01/20/18 13:36:03 EDT, Route to Pharmacy Electronically, [id number], [facility] Start Date: 01/20/18 Stop Date: 01/15/19 Status: Ordered Mavyret By Mouth, Daily, 0 Refills, Maintenance, 05/04/20 11:57:00 EDT Start Date: 05/04/20 Status: Ordered Mavyret 100 mg-40 mg oral tablet 3 tablet, By Mouth, Daily, x 8 weeks, # 84 tablet, 1 Refills, Maintenance, 02/05/20 14:18:00 EDT, Tablet, [facility], 3 tablet By Mouth Daily,Instr:x [...] Weight Start Date: 08/27/19 Status: Ordered Pen [place], 29 G x 12.7 mm BD Ultra [...] Diagnosis Diagnosis Type Effective Dates Health Status Cl inical Service Informant Localized swelling of left foot Discharge Diagnosis 05/06/20 Multiple joint pain Discharge Diagnosis 05/06/20 Vital Signs Most recent to oldest [Reference Range]: 1 Height 180.3 cm (05/06/20 4:07 PM) Social History Social History Type Response Tobacco Other: 3 cigars brenden y. Sex Male
--- OUTSIDE RECORDS SUMMARY | 2023-10-18 20:35 | XMS_ITS | Continuity of Care Document ---
Author Name Unknown Organization [facility] Address [address] [place] [address]- Care Team Providers Care Riddler Operator Name Role Phone Roberto CH, Efra Miramontes Primary Care Physician Encounter [facility] Date(s): 08/22/21 - 10/14/21 [facility] [address] [place] [address]- Attending Physician: Anand Miller MD Admitting Physician: Anand Miller MD Allergies, Adverse Reactions, Alerts No Known [...] 23-valent vaccine 8 04/01/12 Given 1Result Comment: [facility]#[id number] 2Result Comment: [07/31/2018] [facility]# [id number] 3Result Comment: [08/26/2015] done at [facility] 4Admin Note: VIM 03/17/12 5Admin Note: VIM 04/10/11 6Admin Note: VIM 08/03/08 7Admin Note: VIS GIVEN 04/10/13 8Admin Note: vis given dated 06/21/09 Medications donepezil 5 mg oral tablet 5 mg, 1, tablet, By Mouth, Daily, # 30 tablet, Refills 5, Tot. Refills 5, Maintenance, 06/02/21 14:20:00 EDT, Route to Pharmacy Electronically, [facility]/pharmacy #[id number], Partial fill upon patient [...] AM, 0 Refills, Maintenance, 07/14/21 14:22:00 EDT, [place], Partial fill upon patient request if the [...] 08/31/21 11:39:00 EST, Route to Pharmacy Electronically, [facility]/pharmacy #[id number], Partial fill upon patient [...] Start Date: 07/13/21 Status: Ordered nystatin topical 332672 u/gm powder See Instructions, apply to stump 3 x day, # 120 Gm, 5 Refills, Maintenance, 07/06/21 12:35:00 EDT, Powder, [facility]/pharmacy #[id number], Partial fill upon patient [...] Maintenance, 07/06/2111:55:00 EDT, Route to Pharmacy Electronically, [facility]/pharmacy #[id number], Partial fill upon patient request if the prescription is for a schedule II opioid d... Start Date: 07/06/21 Status: Ordered Trulicity Pen 0.75 mg/0.5 mL subcutaneous solution 0.5 mL = 0.75 mg, Subcutaneous Injection, Every week, rotate injection sites, # 2 mL, 5 Refills, Maintenance, 10/05/21 11:20:00 EST, Solution, [facility]/pharmacy #[id number], Partial fill upon patient [...]
--- OUTSIDE RECORDS SUMMARY | 2023-10-18 20:35 | XMS_ITS | Continuity of Care Document ---
Author Name Unknown Organization [facility] Address [address] [place] [address]- Care Team Providers Care Personal Lines Appraiser Name Role Phone Efra Mejia MD Primary Care Physician Encounter [facility] Date(s): 05/19/20 - 06/18/20 [facility] [address] [place] [address]- [facility] Allergies, Adverse Reactions, Alerts Substance Reaction Severity [...] [07/31/2018] [facility]# [id number] 2Result Comment: [08/26/2015] done at [facility] 3Admin Note: VIM 03/17/12 4Admin Note: VIM 04/10/11 5Admin Note: VIS GIVEN 04/10/13 6Admin Note: vis given dated 06/21/09 7Admin Note: VIM 08/03/08 Medications albuterol CFC free 90 mcg/inh inhalation aerosol 1, puffs, Inhalation, 4 times a day, PRN, # 18 Gm, Refills 0, Tot. Refills 0, Maintenance, 12/02/2009:56:00 EDT, Aerosol, Route to Pharmacy Electronically, [id number], [facility]/pharmacy #[id number], 180.3, cm, 11/12/19 15:07:00 [...] Maintenance, 07/02/16 16:06:12, Route to Pharmacy Electronically, [id number], [facility] Start Date: [...] 05/31/20 14:57:00 EDT, Route to Pharmacy Electronically, [facility]/pharmacy #[id number], 180.3, cm, 05/31/20 14:08:00 EDT, Height, 120.7, kg, 11/03/19 13:31:00 EST,... Start Date: 05/31/20 Status: Ordered ibuprofen 800 mg oral tablet 800 mg, 1, tablet, By Mouth, Every 8 hours, PRN, # 90 tablet, Refills 0, Tot. Refills 0, Maintenance, as needed for pain, 04/10/19 17:13:55 EDT, Route to Pharmacy Electronically, [id number], [facility] #[facility] Start Date: [...] 5 Refills, Maintenance, 05/31/20 14:57:00 EDT, Solution, [facility]/pharmacy #[id number], 180.3, cm, 05/31/20 14:08:00 [...] 01/20/18 13:36:03 EDT, Route to Pharmacy Electronically, [id number], [facility] Start Date: 01/20/18 Stop Date: 01/15/19 Status: Ordered Mavyret 100 mg-40 mg oral tablet 3 tablet, By Mouth, Daily, x 8 weeks, # 84 tablet, 1 Refills, Maintenance, 02/05/20 14:18:00 EDT, Tablet, [facility], 3 tablet By Mouth Daily,Instr:x 8 [...] 4 Refills, Maintenance, 05/31/20 14:58:00 EDT, Patch, [facility]/pharmacy #[id number], 180.3, cm, 05/31/20 14:08:00 [...] Weight Start Date: 05/26/20 Status: Ordered Pen [place], 29 G x 12.7 mm BD Ultra [...]
--- OUTSIDE RECORDS SUMMARY | 2023-10-18 20:35 | XMS_ITS | Continuity of Care Document ---
Author Name Unknown Organization [facility] Address [address] [place] [address]- Care Team Providers Care Back Shoe Worker Name Role Phone Efra Mejia MD Primary Care Physician Encounter [facility] Date(s): 10/04/22 - 01/05/23 [facility] [address], [place] [address] Attending Physician: Efra Mejia MD Allergies, Adverse [...] 23-valent vaccine 8 04/01/12 Given 1Result Comment: [facility]#[id number] 2Result Comment: [07/31/2018] [facility]# [id number] 3Result Comment: [08/26/2015] done at [facility] 4Admin Note: VIM 03/17/12 5Admin Note: VIM 04/10/11 6Admin Note: VIM 08/03/08 7Admin Note: VIS GIVEN 04/10/13 8Admin Note: vis given dated 06/21/09 Medications ARIPiprazole 5 mg oral tablet 5 mg, 1, tablet, By Mouth, Daily, # 90 tablet, Refills 1, Tot. Refills 1, Maintenance, 09/28/22 8:16:00 EST, Route to Pharmacy Electronically, [facility]/pharmacy #[id number], Partial fill upon patient request ifthe prescription is for a schedule II opioid drug.,... Start Date: 09/28/22 Stop Date: 03/27/23 Status: Ordered citalopram 40 mg oral tablet 40 mg, 1, tablet, By Mouth, Daily, Take with food., # 90 tablet, Refills 1, Tot. Refills 1, Maintenance, 09/28/22 8:16:00 EST, Route to Pharmacy Electronically, [facility] #[id number], 181.5, cm, 08/30/22 16:11:00 EST, Height, 105, kg, 09/26/21 3:23:00 ES... Start Date: 09/28/22 Stop Date: 03/27/23 Status: Ordered donepezil 10 mg oral tablet 10 mg, 1, tablet, By Mouth, Daily at bedtime, # 90 tablet, Refills 2, Tot. Refills 2, Maintenance, 10/11/22 12:01:00 EST, Route to Pharmacy Electronically, [facility]/pharmacy #[id number], Partial fill upon patient [...] AM, 0 Refills, Maintenance, 07/14/21 14:22:00 EDT, [place], Partial fill upon patient request if the [...] 12/23/22 8:36:00 EDT, Route to Pharmacy Electronically, [facility]/pharmacy #[id number], Partial fill upon patient request if the prescription is for a schedule II o... Start Date: 12/23/22 Status: Ordered levothyroxine 0.112 mg oral tablet 2 tablet = 224 mcg, By Mouth, Daily, # 60 tablet, 2 Refills, Maintenance, 12/19/22 16:00:00 EDT, Tablet, [facility]/pharmacy #[id number], 181.5, cm, 10/26/22 11:39:00 [...] Start Date: 07/13/21 Status: Ordered nystatin topical 164959 u/gm powder See Instructions, apply to stump 3 x day, # 120 Gm, 5 Refills, Maintenance, 07/06/21 12:35:00 EDT, Powder, [facility]/pharmacy #[id number], Partial fill upon patient request if the prescription is for a schedule II opioid drug., apply to stump 3 x day, 180, cm,... Start Date: 07/06/21 Status: Ordered omeprazole 20 mg oral enteric coated capsule 1 capsule = 20 mg, By Mouth, Daily, # 30 capsule, 0 Refills, Maintenance, 12/19/22 16:00:00 EDT, ECCapsule, [facility]/pharmacy #[id number], 181.5, cm, 10/26/22 11:39:00 [...] in AM, 1 film sublingual in PM [id number], # 75 film, 1 Refills, Maintenance, 12/18/22 8:06:00 EDT, [id number], 1.5 films sublingual in AM, 1 film sublingual in PM ; [id number], 181.5, cm, 10/26/22 11:39:... Start Date: 12/18/22 Status: Ordered tamsulosin 0.4 mg oral capsule 0.4 mg, 1, capsule, By Mouth, Daily, # 90 capsule, Refills 3, Tot. Refills 3, Maintenance, 12/20/2315:00:00 EDT, Route to Pharmacy Electronically, [facility]/pharmacy #06, Partial fill upon patient request if the [...] Team Personnel Name: Alka Lee RN Position: [facility] RN Member Role: Primary Care Nurse Name: Jaleel Lo RN Position: [facility] RN Member Role: Primary Care Nurse Name: Ivy Smith RN Position: [facility] RN Member Role: Primary Care Nurse Name: Efra Mejia MD Position: [facility] Primary Care Physician Member Role: PCP Address: Address: [address] [place] [id number] Name: Devorah Johnson RN Position: [facility] RN Member Role: Primary Care Nurse Name: Dustin Chavez RN Position: [facility] RN Member Role: Primary Care Nurse Name: Litzy Weinberg RN Position: [facility] RN Member Role: Primary Care Nurse Name: Melanie Garay Position: [facility] RN Member Role: Primary Care Nurse Name: Michelle Buckley Position: [facility] RN Member Role: Primary Care Nurse Name: Saundra Gonzalez Position: [facility] RN Member Role: Primary Care Nurse Name: Sofía Moreno RN Position: [facility] RN Member Role: Primary Care Nurse Name: Sary Tong RN Position: [facility] RN Member Role: Primary Care Nurse Name: Sophia Lomas RN Position: [facility] RN Member Role: Primary Care Nurse Name: Danielito Woo RN Position: [facility] Hospital Instructor [employer]am[employer] Member Role: Primary Care Nurse Care Team Related Persons Name: TINY STEPHENS Address: home [address] [place] [id number] Name: FERNIE CUMMINS Address: [address] [place] [address] Name: TINY CUMMINS Address: [address] [address]
--- OUTSIDE RECORDS SUMMARY | 2023-10-18 20:35 | XMS_ITS | Continuity of Care Document ---
Author Name Unknown Organization [facility] Address Unknown Care Team Providers Care Pharmacist Apprentice Name Role Phone Roberto CH, Efra Miramontes Primary Care Physician Encounter [facility] Date(s): 10/26/21 - 12/06/21 [facility] Attending Physician: Elder Cannon Admitting Physician: Elder Cannon Allergies, Adverse Reactions, Alerts No Known Allergies [...] 23-valent vaccine 8 04/01/12 Given 1Result Comment: [facility]#[id number] 2Result Comment: [07/31/2018] [facility]# [id number] 3Result Comment: [08/26/2015] done at [facility] 4Admin Note: VIM 03/17/12 5Admin Note: VIM 04/10/11 6Admin Note: VIM 08/03/08 7Admin Note: VIS GIVEN 04/10/13 8Admin Note: vis given dated 06/21/09 Medications donepezil 5 mg oral tablet 1, tablet, By Mouth, Daily, # 90 tablet, Refills 1, Route to Pharmacy Electronically, [id number], 181.5, cm, 09/28/21 12:39:00 EST, Height, 105, [...] AM, 0 Refills, Maintenance, 07/14/21 14:22:00 EDT, [place], Partial fill upon patient request if the [...] 08/31/21 11:39:00 EST, Route to Pharmacy Electronically, [facility]/pharmacy #[id number], Partial fill upon patient request if the prescription is for a schedule II... Start Date: 08/31/21 Status: Ordered Iodosorb 0.9% topical gel See Instructions, Continue wound care with iodosorb gel and 2x2 dressing daily to small wound Betadine pain to incision, # 1 each, 0 Refills, Maintenance, 09/28/21 18:43:00 EST, [facility]/pharmacy #[id number], Partial fill upon patient request if the prescripti... Start Date: 09/28/21 Status: Ordered levothyroxine 0.112 mg oral tablet 2 tablet = 224 mcg, By Mouth, Daily, # 60 tablet, 5 Refills, Maintenance, 10/27/20 10:22:00 EST, Tablet, [facility]/pharmacy #[id number], 183, cm, 10/27/20 8:41:00 EST, [...] Start Date: 07/13/21 Status: Ordered nystatin topical 453094 u/gm powder See Instructions, apply to stump 3 x day, # 120 Gm, 5 Refills, Maintenance, 07/06/21 12:35:00 EDT, Powder, [facility]/pharmacy #[id number], Partial fill upon patient request if the prescription is for a schedule II opioid drug., apply to stump 3 x day, 180, cm,... Start Date: 07/06/21 Status: Ordered omeprazole 20 mg oral enteric coated capsule 1 capsule = 20 mg, By Mouth, Daily, # 30 capsule, 5 Refills, Maintenance, 10/27/20 10:22:00 EST, ECCapsule, [facility]/pharmacy #[id number], 183, cm, 10/27/20 8:41:00 EST, Height, 119, kg, 09/23/20 17:06:00 EST,Dry Weight Start Date: 10/27/20 Status: Ordered tamsulosin 0.4 mg oral capsule 0.4 mg, 1, capsule, By Mouth, Daily, # 90 capsule, Refills 3, Tot. Refills 3, Maintenance, 07/06/2111:55:00 EDT, Route to Pharmacy Electronically, [facility]/pharmacy #[id number], Partial fill upon patient request if the prescription is for a schedule II opioid d... Start Date: 07/06/21 Status: Ordered Trulicity Pen 0.75 mg/0.5 mL subcutaneous solution 0.5 mL = 0.75 mg, Subcutaneous Injection, Every week, rotate injection sites, # 2 mL, 5 Refills, Maintenance, 10/05/21 11:20:00 EST, Solution, [id number], Partial fill upon patient request ifthe prescription [...]
--- OUTSIDE RECORDS SUMMARY | 2023-10-18 20:35 | XMS_ITS | Continuity of Care Document ---
Author Name Unknown Organization [facility] Address [address] [place] [address]- Care Team Providers Care Student Driving Instructor Name Role Phone Efra Mejia MD Primary Care Physician Encounter [facility] Date(s): 01/12/20 - 01/19/20 [facility] [address] [place] [address]- [facility] Encounter Diagnosis CAP (community acquired pneumonia)(Discharge Diagnosis) - 01/12/20 Hypothyroidism(Discharge Diagnosis) - 01/12/20 Hypertension(Discharge Diagnosis) - 01/12/20 Osteoarthritis of right glenohumeral joint(Discharge Diagnosis) - 01/12/20 Attending Physician: Efra Mejia MD Allergies, Adverse [...] acel(Tdap) 7 03/05/11 Given 1Result Comment: [07/31/2018] [facility]# [id number] 2Result Comment: [08/26/2015] done at [facility] 3Admin Note: VIM 03/17/12 4Admin Note: VIM 04/10/11 5Admin Note: VIS GIVEN 04/10/13 6Admin Note: vis given dated 06/21/09 7Admin Note: VIM 08/03/08 Medications albuterol CFC free 90 mcg/inh inhalation aerosol 1, puffs, Inhalation, 4 times a day, PRN, # 18 Gm, Refills 0, Tot. Refills 0, Maintenance, 12/02/2009:56:00 EDT, Aerosol, Route to Pharmacy Electronically, [id number], [facility]/pharmacy #[id number], 180.3, cm, 11/12/19 15:07:00 EST, [...] 1 Refills, Maintenance, 11/12/19 10:02:00 EST, Gel, [facility]/pharmacy #[id number], 180.3, cm, 11/12/19 8:43:00 EST, [...] Maintenance, 07/02/16 16:06:12, Route to Pharmacy Electronically, [id number], [facility] Start Date: [...] 5 Refills, Maintenance, 10/22/19 10:55:00 EST, Tablet, [facility]/pharmacy #2339, 180.3, cm, 10/22/19 10:14:00 EST, Height, 118.5, kg, 05/12/19 10:33:00 EDT, Dry Weight Start Date: 10/22/19 Status: Ordered ibuprofen 800 mg oral tablet 800 mg, 1, tablet, By Mouth, Every 8 hours, PRN, # 90 tablet, Refills 0, Tot. Refills 0, Maintenance, as needed for pain, 04/10/19 17:13:55 EDT, Route to Pharmacy Electronically, [id number], [facility] #[facility] Start Date: [...] 5 Refills, Maintenance, 01/12/20 14:27:00 EDT, Tablet, [facility]/pharmacy #2339, 180.3, cm, 01/12/20 13:41:00 EDT, Height, 120.7, kg, 11/03/19 13:31:00EST, Dry Weight Start Date: 01/12/20 Status: Ordered Lantus Solostar Pen 100 units/mL subcutaneous solution = 60 units, Subcutaneous Injection, 2 times a day, # 15 mL, 5 Refills, Maintenance, 01/19/20 15:07:00 EDT, Solution, [facility]/pharmacy #2339, 180.3, cm, 01/19/20 14:07:00 EDT, [...] 01/20/18 13:36:03 EDT, Route to Pharmacy Electronically, [id number], [facility] Start Date: [...] 11/12/19 15:56:00 EST, Route to Pharmacy Electronically, [facility]/pharmacy #[id number], 180.3, cm, 11/12/19 15:07:00 EST, Height, [...] Weight Start Date: 08/27/19 Status: Ordered Pen [place], 29 G x 12.7 mm BD Ultra [...] Effective Dates Health Status Clinical Service Informant CAP (community acquired pneumonia) Discharge Diagnosis 01/12/20 Hypothyroidism Discharge Diagnosis 01/12/20 Hypertension Discharge Diagnosis 01/12/20 Osteoarthritis of right glenohumeral joint Discharge Diagnosis 01/12/20 Vital Signs Most recent to oldest [Reference Range]: 1 Height 180.3 cm (01/12/20 1:41 PM) Social History Social History Type Response Tobacco Other: 3 cigars brenden y. Sex Male
--- OUTSIDE RECORDS SUMMARY | 2023-10-18 20:35 | XMS_ITS | Continuity of Care Document ---
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 Discharge Disposition: A-D/C Home Attending Physician: Anaya Thurston MD Admitting Physician: Anaya Thurston MD Referring Physician: Not on Staff, Referring [...] 7 03/05/11 Given 1Result Comment: [07/31/2018] [facility]# [id number] 2Result Comment: [08/26/2015] done at [facility] 3Admin Note: VIM 03/17/12 4Admin Note: VIM 04/10/11 5Admin Note: VIS GIVEN 04/10/13 6Admin Note: vis given dated 06/21/09 7Admin Note: VIM 08/03/08 Medications albuterol CFC free 90 mcg/inh inhalation aerosol 1, puffs, Inhalation, 4 times a day, PRN, # 18 Gm, Refills 0, Tot. Refills 0, Maintenance, 12/02/2009:56:00 EDT, Aerosol, Route to Pharmacy Electronically, [id number], [facility]/pharmacy #[id number], 180.3, cm, 11/12/19 15:07:00 EST, [...] Maintenance, 07/02/16 16:06:12, Route to Pharmacy Electronically, [id number], [facility] Start Date: [...] 10/27/20 10:24:00 EST, [facility] 5 Refills, Maintenance, 10/27/20 10:22:00 EST, Solution, [facility]/pharmacy #[id number], 183, cm, 10/27/20 [...] 10/27/20 10:22:00 EST, Route to Pharmacy Electronically, [facility]/pharmacy #[id number], Partial fill upon patient request if the prescription is for a schedule II opioid drug... Start Date: 10/27/20 Status: Ordered MiraLax oral powder for reconstitution = 17 Gm, By Mouth, Daily, dissolve in water before taking, # 527 Gm, 5 Refills, Maintenance, 10/27/20 10:23:00 EST, REC Powder, [facility]/pharmacy #[id number], 17 Gm By Mouth Daily,Instr:dissolve [...] Weight Start Date: 10/27/20 Status: Ordered Pen [place], 29 G x 12.7 mm BD Ultra Fine See Instructions, # 1 box, Refills 3, Tot. Refills 3, Maintenance, use with NOvolog Pen injection twice daily, 06/18/19 9:42:43 EDT, Compound Start Date: 06/18/19 Status: Ordered tamsulosin 0.4 mg oral capsule 0.4 mg, 1, capsule, By Mouth, Daily, # 30 capsule, Refills 11, Tot. Refills 11, Maintenance, 10/27/20 10:23:00 EST, Route to Pharmacy Electronically, [id number], 183, cm, 10/27/20 8:41:00 EST, [...] Exam Date Time Procedure Performing Provider Status 11/08/20 6:10 PM Humerus Min 2 Views Left Ra jennifer Juarez; Auth (Verified) Notes: (Humerus Min 2 Views Left) Reason For Exam: with Pain;Trauma RESULT: Humerus Min 2 Views Left Shoulder Min 2 Views Left, Humerus Min 2 Views Left, views Hx of Present Illness: pt has a right leg cellulitis, had amp on that leg back in 2016.; Reason: Trauma; with Pain; Clinical Question(s): Fracture COMPARISON: None. FINDINGS: No fracture or dislocation. No arthritic change of the glenohumeral joint. Mild degenerative changes of the AC joint. The portion of the clavicle included on the exam is normal. No calcification of the rotator cuff. IMPRESSION: No acute abnormality WSN: [id number] Ordering Physician: Gisella Schaeffer Dictated By: Robel Wells MD Dictated Date/Time: 11/08/20 6:15 pm Reviewed By: Robel Wells MD Signed By: Robel Wells MD Signed Date/Time: 11/08/20 6:15 pm Transcribed By: CATARINO Transcribed Date/Time: 11/08/20 6:11 pm * Exam Date Time Procedure Performing Provider Status 11/08/20 6:10 PM Shoulder Min 2 Views Left Yeyo Juarez; Anibal (Verified) Notes: (Shoulder Min 2 Views Left) Reason For Exam: with Pain;Trauma RESULT: Shoulder Min 2 Views Left Shoulder Min 2 Views Left, Humerus Min 2 Views Left, views Hx of Present Illness: pt has a right leg cellulitis, had amp on that leg back in 2016.; Reason: Trauma; with Pain; Clinical Question(s): Fracture COMPARISON: None. FINDINGS: No fracture or dislocation. No arthritic change of the glenohumeral joint. Mild degenerative changes of the AC joint. The portion of the clavicle included on the exam is normal. No calcification of the rotator cuff. IMPRESSION: No acute abnormality WSN: [id number] Ordering Physician: Gisella Schaeffer Dictated By: Robel Wells MD Dictated Date/Time: 11/08/20 6:15 pm Reviewed By: Robel Wells MD Signed By: Robel Wells MD Signed Date/Time: 11/08/20 6:15 pm Transcribed By: CATARINO Transcribed Date/Time: 11/08/20 6:11 pm Vital Signs Most recent to oldest [Reference Range]: 1 2 Oxygen Saturation [94-100 %] 97 % (11/08/20 9:09 PM) 99 % (11/08/20 3:00 PM) Pulse Rate [55-90 bpm] 68 bpm (11/08/20 9:09 PM) 73 bpm (11/08/20 3:00 PM) Blood Pressure [90-138/55-84 mm Hg] 98/5 7mm Hg (11/08/20 9:09 PM) 120/63mm Hg (11/08/20 3:00 PM) Respiratory Rate [16-30 br/min] 18 br/mi n (11/08/20 9:09 PM) 18 br/min (11/08/20 3:00 PM) Temperature [96.8-100.4 DegF] 98.3 DegF (11/08/20 9:09 PM) 98.8 DegF (11/08/20 3:00 PM) Mode of Delivery (Oxygen) Room air (11/08/20 9:09 PM) Room air (11/08/20 3:00 PM) Temperature Route Oral (11/08/20 9:09 PM) Oral (11/08/20 3:00 PM) Social History Social History Type Response Tobacco Other: 3 cigars brenden y. Sex Male
--- OUTSIDE RECORDS SUMMARY | 2023-10-18 20:35 | XMS_ITS | Continuity of Care Document ---
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) - 08/27/19 Attending Physician: Efra Mejia MD Allergies, Adverse [...] acel(Tdap) 7 03/05/11 Given 1Result Comment: [07/31/2018] [facility]# [id number] 2Result Comment: [08/26/2015] done at [facility] 3Admin Note: VIM 03/17/12 4Admin Note: [...] Maintenance, 07/02/16 16:06:12, Route to Pharmacy Electronically, [id number], [facility] Start Date: [...] 04/10/19 17:13:55 EDT, Route to Pharmacy Electronically, [id number], [facility] Start Date: [...] 01/20/18 13:36:03 EDT, Route to Pharmacy Electronically, [id number], [facility] Start Date: [...] Weight Start Date: 08/27/19 Status: Ordered Pen [place], 29 G x 12.7 mm BD Ultra [...] Effective Dates Health Status Clinical Service Informant Otitis externa of left ear Discharge Diagnosis 08/27/19 Osteoarthritis of right glenohumeral joint Discharge Diagnosis 08/27/19 Hypogonadism Discharge Diagnosis 08/27/19 Varicose veins of leg with pain Discharge Diagnosis 08/27/19 Vital Signs Most recent to oldest [Reference Range]: 1 2 Height 180 cm (08/27/19 11:57 AM) 180 cm (08/27/19 11:23 AM) Oxygen Saturation [94-100 %] 98 % (08/27/19 11:23 AM) Pulse Rate [55-90 bpm] 71 bpm (08/27/19 11:23 AM) Blood Pressure [90-138/55-84 mm Hg] 122/ 80mm Hg (08/27/19 11:57 AM) 144/78mm Hg *H* (08/27/19 11:23 AM) Blood pressure sites Arm, right (08/27/19 11:57 AM) Arm, right (08/27/19 11:23 AM) Social History Social History Type Response Tobacco Other: 3 cigars brenden y. Sex
--- OUTSIDE RECORDS SUMMARY | 2023-10-18 20:35 | XMS_ITS | Continuity of Care Document ---
Author Name Unknown Organization [facility] Address [address] [place] [address]- Care Team Providers Care Manager Decision Support Name Role Phone Roberto CH, Efra Miramontes Primary Care Physician [phone] [place] [facility] [place]/13[place] - 08/12/21 [facility] [address] [place], [place] [address] Allergies, Adverse Reactions, Alerts Substance Reaction Severity [...] vaccine 8 04/01/12 Given 1Result Comment: [facility]#[id number] 2Result Comment: [07/31/2018] [facility]# [id number] 3Result Comment: [08/26/2015] done at [facility] 4Admin Note: VIM 03/17/12 5Admin Note: VIM 04/10/11 6Admin Note: VIM 08/03/08 7Admin Note: VIS GIVEN 04/10/13 8Admin Note: vis given dated 06/21/09 Medications donepezil 5 mg oral tablet 5 mg, 1, tablet, By Mouth, Daily, # 30 tablet, Refills 5, Tot. Refills 5, Maintenance, 06/02/21 14:20:00 EDT, Route to Pharmacy Electronically, [facility]/pharmacy #[id number], Partial fill upon patient request if the [...] AM, 0 Refills, Maintenance, 07/14/21 14:22:00 EDT, [place], Partial fill upon patient request if the prescription is for a schedule II opioid drug. Start Date: 07/14/21 Status: Ordered folic acid 1 mg oral tablet 1 mg, 1, tablet, By Mouth, Daily, # 30 tablet, Refills 0, Maintenance, 07/13/21 22:11:00 EDT, Partial fill upon patient request if the prescription is for a schedule II opioid drug. Start Date: 07/13/21 Status: Ordered gabapentin 300 mg oral capsule 300 mg, 1, capsule, By Mouth, 2 times a day, Refills 0, Maintenance, 07/14/21 14:22:00 EDT, Partialfill upon patient request if the prescription is for a schedule II opioid drug. Start Date: 07/14/21 Status: Ordered levothyroxine 0.112 mg oral tablet [...] Start Date: 07/13/21 Status: Ordered nystatin topical 306662 u/gm powder See Instructions, apply to stump [...] Maintenance, 07/06/2111:55:00 EDT, Route to Pharmacy Electronically, [facility]/pharmacy #[id number], Partial fill upon patient request if the prescription is for a schedule II opioid d... Start Date: 07/06/21 Status: Ordered Trulicity Pen 0.75 mg/0.5 mL subcutaneous solution 0.5 mL = 0.75 mg, Subcutaneous Injection, Every week, rotate injection sites, # 2 mL, 0 Refills, Maintenance, 07/06/21 12:35:00 EDT, Solution, [facility]/pharmacy #[id number], Partial fill upon patient request [...]
--- OUTSIDE RECORDS SUMMARY | 2023-10-18 20:35 | XMS_ITS | Continuity of Care Document ---
Author Name Unknown Organization [facility] Address [address] [place] [address]- Care Team Providers Care Apartment House Manager Name Role Phone Efra Mejia MD Primary Care Physician Encounter [facility] Date(s): 12/15/20 - 12/22/20 [facility] [address] [place] [address]- Encounter Diagnosis Diabetic nephropathy(Discharge Diagnosis) - 12/15/20 Hypothyroidism(Discharge Diagnosis) - 12/15/20 Opioid dependence on agonist therapy(Discharge Diagnosis) - 12/15/20 Hx of right BKA(Discharge Diagnosis) - 12/15/20 Attending Physician: Efra Mejia MD Allergies, Adverse [...] Given 1Result Comment: [07/31/2018] [facility]# [id number] 2Result Comment: [08/26/2015] done at [facility] 3Admin Note: VIM 03/17/12 4Admin Note: VIM 04/10/11 5Admin Note: VIS GIVEN 04/10/13 6Admin Note: vis given dated 06/21/09 7Admin Note: VIM 08/03/08 Medications albuterol CFC free 90 mcg/inh inhalation aerosol 1, puffs, Inhalation, 4 times a day, PRN, # 18 Gm, Refills 0, Tot. Refills 0, Maintenance, 12/02/2009:56:00 EDT, Aerosol, Route to Pharmacy Electronically, [id number], [facility]/pharmacy #[id number], 180.3, cm, 11/12/19 15:07:00 EST, [...] Gm, 5 Refills, Maintenance, 12/15/20 12:56:00 EDT, [place], [facility]/pharmacy #[id number], Partial fill upon patient request [...] Maintenance, 07/02/16 16:06:12, Route to Pharmacy Electronically, [id number], [facility] Start Date: [...] 10/27/20 10:24:00 EST, Route to Pharmacy Electronically, [facility]/pharmacy #[id number], Partial fill upon patient request [...] 5 Refills, Maintenance, 10/27/20 10:22:00 EST, Solution, [facility]/pharmacy #[id number], 183, cm, 10/27/20 8:41:00 EST, Height, 119, kg, 09/23/20 17:06:00 EST, Dry Weight Start Date: 10/27/20 Status: Ordered levothyroxine 0.112 mg oral tablet 2 tablet = 224 mcg, By Mouth, Daily, # 60 tablet, 5 Refills, Maintenance, 10/27/20 10:22:00 EST, Tablet, [facility]/pharmacy #[id number], 183, cm, 10/27/20 8:41:00 EST, Height, 119, kg, 09/23/20 17:06:00 EST, DryWeight Start Date: 10/27/20 Stop Date: 04/25/21 Status: Ordered lisinopril 20 mg oral tablet 40 mg, 2, tablet, By Mouth, Daily, # 60 tablet, Refills 5, Tot. Refills 5, Maintenance, 10/27/20 10:22:00 EST, Route to Pharmacy Electronically, [facility]/pharmacy #[id number], Partial fill upon patient request if the prescription is for a schedule II opioid drug... Start Date: 10/27/20 Status: Ordered Melatonin 5 mg oral tablet 1 tablet = 5 mg, By Mouth, Daily at bedtime, # 30 tablet, 5 Refills, Maintenance, 12/15/20 12:56:00EDT, Tablet, [facility]/pharmacy #[id number], Partial fill upon patient request if the prescription is for a schedule II opioid drug., 183, cm, 12/15/20 11:23:00 ED... Start Date: 12/15/20 Status: Ordered MiraLax oral powder for reconstitution = 17 Gm, By Mouth, Daily, dissolve in water before taking, # 527 Gm, 5 Refills, Maintenance, 10/27/20 10:23:00 EST, REC Powder, [facility]/pharmacy #[id number], 17 Gm By Mouth Daily,Instr:dissolve in water beforetaking, 183, cm, 10/27/20 8:41:00 EST, Height, 119,... Start Date: 10/27/20 Status: Ordered nystatin topical 299952 u/gm powder See Instructions, apply to stump daily, # 30 Gm, 5 Refills, Maintenance, 12/15/20 12:56:00 EDT, Powder, [facility]/pharmacy #[id number], Partial fill upon patient request if the prescription is for a schedule II opioid drug., apply to stump daily, 183, cm, 04/01/2... Start Date: 12/15/20 Status: Ordered omeprazole 20 mg oral enteric coated capsule 1 capsule = 20 mg, By Mouth, Daily, # 30 capsule, 5 Refills, Maintenance, 10/27/20 10:22:00 EST, ECCapsule, [facility]/pharmacy #[id number], 183, cm, 10/27/20 8:41:00 EST, Height, 119, kg, 09/23/20 17:06:00 EST,Dry Weight Start Date: 10/27/20 Status: Ordered Pen [place], 29 G x 12.7 mm BD Ultra Fine See Instructions, # 1 box, Refills 3, Tot. Refills 3, Maintenance, use with NOvolog Pen injection twice daily, 06/18/19 9:42:43 EDT, Compound Start Date: 06/18/19 Status: Ordered tamsulosin 0.4 mg oral capsule 0.4 mg, 1, capsule, By Mouth, Daily, # 30 capsule, Refills 11, Tot. Refills 11, Maintenance, 12/15/20 12:56:00 EDT, Route to Pharmacy Electronically, [facility]/pharmacy #[id number], 183, cm, 12/15/20 11:23:00 EDT, Height, 119, kg, 09/23/20 17:06:00 EST, Dry Weight Start Date: 12/15/20 Status: Ordered Trulicity Pen 1.5 mg/0.5 mL subcutaneous solution 0.5 mL = 1.5 mg, Subcutaneous Injection, Every week, # 2.5 mL, 5 Refills, Maintenance, 12/15/20 12:38:00 EDT, Solution, [facility]/pharmacy #[id number], Partial fill upon patient request [...] Clinical Service Informant Diabetic nephropathy Discharge Diagnosis 12/15/20 Hypothyroidism Discharge Diagnosis 12/15/20 Opioid dependence on agonist therapy Discharge Diagnosis 12/15/20 Hx of right BKA Discharge Diagnosis 12/15/20 Vital Signs Most recent to oldest [Reference Range]: 1 Height 183 cm (12/15/20 11:23 AM) Social History Social History Type Response Tobacco Other: 3 cigars brenden y. Sex Male
--- OUTSIDE RECORDS SUMMARY | 2023-10-18 20:35 | XMS_ITS | Continuity of Care Document ---
Author Name Unknown Organization [facility] Address [address] [place] [address]- Care Team Providers Care Power Generation Turbine Room Operator Name Role Phone Efra Mejia MD Primary Care Physician [phone] [place] [facility] [place] 12/29/20 - 02/01/21 [facility] [address] [place] [address]- Attending Physician: Dorinda Wan MD Referring Physician: Efra Mejia MD Allergies, [...] 03/05/11 Given 1Result Comment: [07/31/2018] [facility]# [id number] 2Result Comment: [08/26/2015] done at [facility] [...] 12/02/2009:56:00 EDT, Aerosol, Route to Pharmacy Electronically, [id number], [facility]/pharmacy #[id number], 180.3, cm, 11/12/19 15:07:00 EST, He... [...] Gm, 5 Refills, Maintenance, 12/15/20 12:56:00 EDT, [place], [facility]/pharmacy #[id number], Partial fill upon patient request if [...] Maintenance, 07/02/16 16:06:12, Route to Pharmacy Electronically, [id number], [facility] Start Date: [...] 10/27/20 10:24:00 EST, Route to Pharmacy Electronically, [facility]/pharmacy #[id number], Partial fill upon patient request if [...] 5 Refills, Maintenance, 10/27/20 10:22:00 EST, Solution, [facility]/pharmacy #[id number], 183, cm, 10/27/20 8:41:00 EST, Height, 119, kg, 09/23/20 17:06:00 EST, Dry Weight Start Date: 10/27/20 Status: Ordered levothyroxine 0.112 mg oral tablet 2 tablet = 224 mcg, By Mouth, Daily, # 60 tablet, 5 Refills, Maintenance, 10/27/20 10:22:00 EST, Tablet, [facility]/pharmacy #0693, 183, cm, 10/27/20 8:41:00 EST, Height, 119, kg, 09/23/20 17:06:00 EST, DryWeight Start Date: 10/27/20 Stop Date: 04/25/21 Status: Ordered lisinopril 20 mg oral tablet 40 mg, 2, tablet, By Mouth, Daily, # 60 tablet, Refills 5, Tot. Refills 5, Maintenance, 10/27/20 10:22:00 EST, Route to Pharmacy Electronically, [facility]/pharmacy #[id number], Partial fill upon patient request if the prescription is for a schedule II opioid drug... Start Date: 10/27/20 Status: Ordered Melatonin 5 mg oral tablet 1 tablet = 5 mg, By Mouth, Daily at bedtime, # 30 tablet, 5 Refills, Maintenance, 12/15/20 12:56:00EDT, Tablet, [facility]/pharmacy #0693, Partial fill upon patient request if the prescription is for a schedule II opioid drug., 183, cm, 12/15/20 11:23:00 ED... Start Date: 12/15/20 Status: Ordered MiraLax oral powder for reconstitution = 17 Gm, By Mouth, Daily, dissolve in water before taking, # 527 Gm, 5 Refills, Maintenance, 10/27/20 10:23:00 EST, REC Powder, [facility]/pharmacy #0693, 17 Gm By Mouth Daily,Instr:dissolve in water beforetaking, 183, cm, 10/27/20 8:41:00 EST, Height, 119,... Start Date: 10/27/20 Status: Ordered nystatin topical 551512 u/gm powder See Instructions, apply to stump daily, # 30 Gm, 5 Refills, Maintenance, 12/15/20 12:56:00 EDT, Powder, [facility]/pharmacy #[id number], Partial fill upon patient request if the prescription is for a schedule II opioid drug., apply to stump daily, 183, cm, ... Start Date: 12/15/20 Status: Ordered omeprazole 20 mg oral enteric coated capsule 1 capsule = 20 mg, By Mouth, Daily, # 30 capsule, 5 Refills, Maintenance, 10/27/20 10:22:00 EST, ECCapsule, [facility]/pharmacy #0693, 183, cm, 10/27/20 8:41:00 EST, Height, 119, kg, 09/23/20 17:06:00 EST,Dry Weight Start Date: 10/27/20 Status: Ordered Pen [place], 29 G x 12.7 mm BD Ultra [...] 12/15/20 12:56:00 EDT, Route to Pharmacy Electronically, [facility]/pharmacy #[id number], 183, cm, 12/15/20 11:23:00 EDT, Height, [...] 5 Refills, Maintenance, 12/15/20 12:38:00 EDT, Solution, [id number], Partial fill upon patient request [...]
--- OUTSIDE RECORDS SUMMARY | 2023-10-18 20:36 | XMS_ITS | Continuity of Care Document ---
Author Name Unknown Organization [facility] Address [address] [place] [address]- Care Team Providers Care Piece Cutter Name Role Phone Efra Mejia MD Primary Care Physician [place] [facility] [place] 05[place]/20 [facility] [address] [place] [address]- [facility] Allergies, Adverse Reactions, Alerts Substance Reaction Severity [...] acel(Tdap) 7 03/05/11 Given 1Result Comment: [07/31/2018] [facility]# [id number] 2Result Comment: [08/26/2015] done at [facility] 3Admin Note: VIM 03/17/12 4Admin Note: VIM 04/10/11 5Admin Note: VIS GIVEN 04/10/13 6Admin Note: vis given dated 06/21/09 7Admin Note: VIM 08/03/08 Medications albuterol CFC free 90 mcg/inh inhalation aerosol 1, puffs, Inhalation, 4 times a day, PRN, # 18 Gm, Refills 0, Tot. Refills 0, Maintenance, 12/02/2009:56:00 EDT, Aerosol, Route to Pharmacy Electronically, [id number], [facility]/pharmacy #[id number], 180.3, cm, 11/12/19 15:07:00 EST, [...] 1 Refills, Maintenance, 11/12/19 10:02:00 EST, Gel, [facility]/pharmacy #2339, 180.3, cm, 11/12/19 8:43:00 EST, Height, [...] Maintenance, 07/02/16 16:06:12, Route to Pharmacy Electronically, [id number], [facility] Start Date: [...] 5 Refills, Maintenance, 10/22/19 10:55:00 EST, Tablet, [facility]/pharmacy #2339, 180.3, cm, 10/22/19 10:14:00 EST, Height, 118.5, kg, 05/12/19 10:33:00 EDT, Dry Weight Start Date: 10/22/19 Status: Ordered ibuprofen 800 mg oral tablet 800 mg, 1, tablet, By Mouth, Every 8 hours, PRN, # 90 tablet, Refills 0, Tot. Refills 0, Maintenance, as needed for pain, 04/10/19 17:13:55 EDT, Route to Pharmacy Electronically, [id number], [facility] Start Date: [...] 5 Refills, Maintenance, 01/19/20 15:07:00 EDT, Solution, [facility]/pharmacy #2339, 180.3, cm, 01/19/20 14:07:00 EDT, Height, [...] 01/20/18 13:36:03 EDT, Route to Pharmacy Electronically, [id number], [facility] Start Date: 01/20/18 Stop Date: 01/15/19 Status: Ordered Mavyret By Mouth, Daily, 0 Refills, Maintenance, 05/04/20 11:57:00 EDT Start Date: 05/04/20 Status: Ordered Mavyret 100 mg-40 mg oral tablet 3 tablet, By Mouth, Daily, x 8 weeks, # 84 tablet, 1 Refills, Maintenance, 02/05/20 14:18:00 EDT, Tablet, [facility], 3 tablet By Mouth Daily,Instr:x [...] Weight Start Date: 08/27/19 Status: Ordered Pen [place], 29 G x 12.7 mm BD Ultra [...]
--- OUTSIDE RECORDS SUMMARY | 2023-10-18 20:36 | XMS_ITS | Continuity of Care Document ---
Author Name Unknown Organization [facility] Address Unknown Care Team Providers Care Wild Animal Caretaker Name Role Phone Roberto CH, Efra Miramontes Primary Care Physician [phone] Encounter [facility] [place] Date(s): 06/21/21 - 07/21/21 [facility] Allergies, Adverse Reactions, Alerts Substance Reaction Severity [...] 23-valent vaccine 8 04/01/12 Given 1Result Comment: [facility]#[id number] 2Result Comment: [07/31/2018] [facility]# [id number] 3Result Comment: [08/26/2015] done at [facility] 4Admin Note: VIM 03/17/12 5Admin Note: VIM 04/10/11 6Admin Note: VIM 08/03/08 7Admin Note: VIS GIVEN 04/10/13 8Admin Note: vis given dated 06/21/09 Medications Bactrim DS 800 mg-160 mg oral tablet 1 tablet, By Mouth, Every 8 hours, for 4 days, Dosage expressed as trimethoprim, # 12 tablet, 0 Refills, Acute 07/23/21 10:09:00 EST, 07/19/21 10:09:00 EDT, Tablet, [facility]/pharmacy #[id number], Partial fill upon patient request if the prescription is for a samir... Start Date: 07/19/21 Stop Date: 07/23/21 Status: Ordered donepezil 5 mg oral tablet 5 mg, 1, tablet, By Mouth, Daily, # 30 tablet, Refills 5, Tot. Refills 5, Maintenance, 06/02/21 14:20:00 EDT, Route to Pharmacy Electronically, [facility]/pharmacy #[id number], Partial fill upon patient request [...] AM, 0 Refills, Maintenance, 07/14/21 14:22:00 EDT, [place], Partial fill upon patient request if the [...] 5 Refills, Maintenance, 10/27/20 10:22:00 EST, Tablet, [facility]/pharmacy #0693, 183, cm, 10/27/20 8:41:00 EST, [...] Start Date: 07/13/21 Status: Ordered nystatin topical 148082 u/gm powder See Instructions, apply to stump 3 x day, # 120 Gm, 5 Refills, Maintenance, 07/06/21 12:35:00 EDT, Powder, [facility]/pharmacy #0693, Partial fill upon patient request [...] Maintenance, 07/06/2111:55:00 EDT, Route to Pharmacy Electronically, [facility]/pharmacy #0693, Partial fill upon patient request if the prescription is for a schedule II opioid d... Start Date: 07/06/21 Status: Ordered Trulicity Pen 0.75 mg/0.5 mL subcutaneous solution 0.5 mL = 0.75 mg, Subcutaneous Injection, Every week, rotate injection sites, # 2 mL, 0 Refills, Maintenance, 07/06/21 12:35:00 EDT, Solution, [facility]/pharmacy #[id number], Partial fill upon patient request [...]
--- OUTSIDE RECORDS SUMMARY | 2023-10-18 20:36 | XMS_ITS | Continuity of Care Document ---
Author Name Unknown Organization [facility] Address [address] [place] [address]- Care Team Providers Care Ware Cleaner Name Role Phone Roberto CH, Efra Miramontes Primary Care Physician [phone] [facility] [place] 03[place]17/20 [facility] [address] [place] [address]- [facility] Attending Physician: Bobby Sandoval Admitting Physician: [...] Given 1Result Comment: [07/31/2018] [facility]# [id number] 2Result Comment: [08/26/2015] done at [facility] 3Admin Note: VIM 03/17/12 4Admin Note: VIM 04/10/11 5Admin Note: VIS GIVEN 04/10/13 6Admin Note: vis given dated 06/21/09 7Admin Note: VIM 08/03/08 Medications albuterol CFC free 90 mcg/inh inhalation aerosol 1, puffs, Inhalation, 4 times a day, PRN, # 18 Gm, Refills 0, Tot. Refills 0, Maintenance, 12/02/2009:56:00 EDT, Aerosol, Route to Pharmacy Electronically, [id number], [facility]/pharmacy #[id number], 180.3, cm, 11/12/19 15:07:00 EST, He... [...] Refills, Maintenance, 11/12/19 10:02:00 EST, Gel, [facility]/pharmacy #2339, 180.3, cm, 11/12/19 8:43:00 EST, Height, [...] Maintenance, 07/02/16 16:06:12, Route to Pharmacy Electronically, [id number], [facility] Start Date: [...] Refills, Maintenance, 10/22/19 10:55:00 EST, Tablet, [facility]/pharmacy #2339, 180.3, cm, 10/22/19 10:14:00 EST, Height, 118.5, kg, 05/12/19 10:33:00 EDT, Dry Weight Start Date: 10/22/19 Status: Ordered ibuprofen 800 mg oral tablet 800 mg, 1, tablet, By Mouth, Every 8 hours, PRN, # 90 tablet, Refills 0, Tot. Refills 0, Maintenance, as needed for pain, 04/10/19 17:13:55 EDT, Route to Pharmacy Electronically, [id number], [facility] Start Date: [...] 5 Refills, Maintenance, 01/12/20 14:27:00 EDT, Tablet, [facility]/pharmacy #2339, 180.3, cm, 01/12/20 13:41:00 EDT, Height, 120.7, kg, 11/03/19 13:31:00EST, Dry Weight Start Date: 01/12/20 Status: Ordered Lantus Solostar Pen 100 units/mL subcutaneous solution = 60 units, Subcutaneous Injection, 2 times a day, # 15 mL, 5 Refills, Maintenance, 01/19/20 15:07:00 EDT, Solution, [facility]/pharmacy #2339, 180.3, cm, 01/19/20 14:07:00 EDT, Height, [...] 01/20/18 13:36:03 EDT, Route to Pharmacy Electronically, [id number], [facility] Start Date: 01/20/18 Stop Date: 01/15/19 Status: Ordered Mavyret 100 mg-40 mg oral tablet 3 tablet, By Mouth, Daily, x 8 weeks, # 84 tablet, 1 Refills, Maintenance, 02/05/20 14:18:00 EDT, Tablet, [facility], 3 tablet By [...] 11/12/19 15:56:00 EST, Route to Pharmacy Electronically, [facility]/pharmacy #[id number], 180.3, cm, 11/12/19 15:07:00 EST, Height, [...] Weight Start Date: 08/27/19 Status: Ordered Pen [place], 29 G x 12.7 mm BD Ultra [...]
--- OUTSIDE RECORDS SUMMARY | 2023-10-18 20:36 | XMS_ITS | Continuity of Care Document ---
Author Name Unknown Organization [facility] Address [address] [place] [address]- Care Team Providers Care Tornado Chaser Name Role Phone Efra Mejia MD Primary Care Physician [phone] Encounter [facility] Date(s): 05/04/20 - 06/03/20 [facility] [address] [place] [address]- [facility] Allergies, Adverse Reactions, Alerts Substance Reaction [...] [07/31/2018] [facility]# [id number] 2Result Comment: [08/26/2015] done at [facility] 3Admin Note: VIM 03/17/12 4Admin Note: VIM 04/10/11 5Admin Note: VIS GIVEN 04/10/13 6Admin Note: vis given dated 06/21/09 7Admin Note: VIM 08/03/08 Medications albuterol CFC free 90 mcg/inh inhalation aerosol 1, puffs, Inhalation, 4 times a day, PRN, # 18 Gm, Refills 0, Tot. Refills 0, Maintenance, 12/02/2009:56:00 EDT, Aerosol, Route to Pharmacy Electronically, [id number], [facility]/pharmacy #[id number], 180.3, cm, 11/12/19 15:07:00 [...] Maintenance, 07/02/16 16:06:12, Route to Pharmacy Electronically, [id number], [facility] Start Date: [...] 05/31/20 14:57:00 EDT, Route to Pharmacy Electronically, [facility]/pharmacy #[id number], 180.3, cm, 05/31/20 14:08:00 EDT, Height, 120.7, kg, 11/03/19 13:31:00 EST,... Start Date: 05/31/20 Status: Ordered ibuprofen 800 mg oral tablet 800 mg, 1, tablet, By Mouth, Every 8 hours, PRN, # 90 tablet, Refills 0, Tot. Refills 0, Maintenance, as needed for pain, 04/10/19 17:13:55 EDT, Route to Pharmacy Electronically, [id number], [facility] Start Date: [...] 5 Refills, Maintenance, 05/31/20 14:57:00 EDT, Solution, [facility]/pharmacy #[id number], 180.3, cm, 05/31/20 14:08:00 [...] 01/20/18 13:36:03 EDT, Route to Pharmacy Electronically, [id number], [facility] Start Date: 01/20/18 Stop Date: 01/15/19 Status: Ordered Mavyret 100 mg-40 mg oral tablet 3 tablet, By Mouth, Daily, x 8 weeks, # 84 tablet, 1 Refills, Maintenance, 02/05/20 14:18:00 EDT, Tablet, [facility], 3 tablet By Mouth Daily,Instr:x 8 [...] 4 Refills, Maintenance, 05/31/20 14:58:00 EDT, Patch, [facility]/pharmacy #[id number], 180.3, cm, 05/31/20 14:08:00 [...] Weight Start Date: 05/26/20 Status: Ordered Pen [place], 29 G x 12.7 mm BD Ultra [...]
--- OUTSIDE RECORDS SUMMARY | 2023-10-18 20:36 | XMS_ITS | Continuity of Care Document ---
Author Name Unknown Organization [facility] Address [address] [place] [address]- Care Team Providers Care Marker Shipments Name Role Phone Efra Mejia MD Primary Care Physician [phone] Encounter [facility] [place] Date(s): 10/05/21 - 11/04/21 [facility] [address] [place] [address]- Attending Physician: Bobby Sanodval Admitting Physician: Admtr, Bobby Referring Physician: Admtr, Ar8 Allergies, Adverse Reactions, Alerts No Known Allergies [...] 23-valent vaccine 8 04/01/12 Given 1Result Comment: [facility]#[id number] 2Result Comment: [07/31/2018] [facility]# [id number] 3Result Comment: [08/26/2015] done at [facility] 4Admin Note: VIM 03/17/12 5Admin Note: VIM 04/10/11 6Admin Note: VIM 08/03/08 7Admin Note: VIS GIVEN 04/10/13 8Admin Note: vis given dated 06/21/09 Medications donepezil 5 mg oral tablet 5 mg, 1, tablet, By Mouth, Daily, # 30 tablet, Refills 5, Tot. Refills 5, Maintenance, 06/02/21 14:20:00 EDT, Route to Pharmacy Electronically, [facility]/pharmacy #[id number], Partial fill upon patient request [...] AM, 0 Refills, Maintenance, 07/14/21 14:22:00 EDT, [place], Partial fill upon patient request if the [...] 08/31/21 11:39:00 EST, Route to Pharmacy Electronically, [facility]/pharmacy #[id number], Partial fill upon patient request [...] Start Date: 07/13/21 Status: Ordered nystatin topical 764505 u/gm powder See Instructions, apply to stump 3 x day, # 120 Gm, 5 Refills, Maintenance, 07/06/21 12:35:00 EDT, Powder, [facility]/pharmacy #[id number], Partial fill upon patient request [...] Maintenance, 07/06/2111:55:00 EDT, Route to Pharmacy Electronically, [facility]/pharmacy #[id number], Partial fill upon patient request if the prescription is for a schedule II opioid d... Start Date: 07/06/21 Status: Ordered Trulicity Pen 0.75 mg/0.5 mL subcutaneous solution 0.5 mL = 0.75 mg, Subcutaneous Injection, Every week, rotate injection sites, # 2 mL, 5 Refills, Maintenance, 10/05/21 11:20:00 EST, Solution, [facility]/pharmacy #[id number], Partial fill upon patient request [...]
--- OUTSIDE RECORDS SUMMARY | 2023-10-18 20:36 | XMS_ITS | Continuity of Care Document ---
Author Name Unknown Organization [facility] Address [address] [place] [address]- Care Team Providers Care Tax Analyst Name Role Phone Efra Mejia MD Primary Care Physician Encounter [facility] [place] Date(s): 06/26/23 - 07/26/23 [facility] [address] [place] [id number] Attending Physician: Roque BELL, Leticia Muñoz Admitting Physician: Roque BELL, Leticia Muñoz Referring Physician: Efra Mejia MD Allergies, Adverse [...] inactivated 5 08/16/11 Gi raheem SARS-CoV-2 mRNA ([id number]) vax 04/27/22 Recorded zoster vaccine, inactivated 06/11/21 Recorded SARS-CoV-2 (COVID-19) mRNA BNT-162b2 vac 06/11/21 Recorded SARS-CoV-2 (COVID-19) mRNA BNT-162b2 vac 12/04/20 Recorded SARS-CoV-2 (COVID-19) mRNA BNT-162b2 vac 11/13/20 Recorded tetanus/diphtheria/pertussis, acel(Tdap) 05/07/21 Given tetanus/diphtheria/pertussis, acel(Tdap) 6 03/05/11 Given Influenza Virus Vaccine (oldterm) 06/08/19 Recorde d Fluarix (oldterm) 7 08/19/13 Given pneumococcal 23-valent vaccine 8 04/01/12 Given 1Result Comment: [facility]#[id number] 2Result Comment: [07/31/2018] [facility]# [id number] 3Result Comment: [08/26/2015] done at [facility] 4Admin Note: VIM 03/17/12 5Admin Note: VIM 04/10/11 6Admin Note: VIM 08/03/08 7Admin Note: VIS GIVEN 04/10/13 8Admin Note: vis given dated 06/21/09 Medications ARIPiprazole 5 mg oral tablet 5 mg, 1, tablet, By Mouth, Daily, # 90 tablet, Refills 1, Tot. Refills 1, Maintenance, 03/01/23 10:12:00 EDT, Route to Pharmacy Electronically, [facility]/pharmacy #[id number], Partial fill upon patient [...] 08/03/23 9:00:00 EST, 07/03/23 11:29:00 EDT, Cream, [id number], Partial fill upon patient request if the prescription is for a schedule II opioid... Start Date: 07/03/23 Stop Date: 08/03/23 Status: Ordered citalopram 40 mg oral tablet 40 mg, 1, tablet, By Mouth, Daily, Take with food., # 90 tablet, Refills 1, Tot. Refills 1, Maintenance, 06/25/23 10:14:00 EDT, Route to Pharmacy Electronically, [facility]/pharmacy #[id number], 181.5, cm, 06/06/23 16:27:00 EDT, Height, 103, kg, 10/26/22 11:39:00... Start Date: 06/25/23 Stop Date: 12/22/23 Status: Ordered donepezil 10 mg oral tablet 1, tablet, By Mouth, Daily at bedtime, # 90 tablet, Refills 2, Maintenance, 07/26/23 16:19:00 EST, Route to Pharmacy Electronically, [id number], 181.5, cm, 07/11/23 11:00:00 EDT, Height, 103, kg, 10/26/22 11:39:00 EST, Dry Weight Start Date: 07/26/23 Status: Ordered famotidine 40 mg oral tablet 1 tablet = 40 mg, By Mouth, Daily at bedtime, # 30 tablet, 0 Refills, Maintenance, 07/11/23 13:01:00 EDT, Tablet, [facility]/pharmacy #[id number], Partial fill upon patient [...] Gm, 0 Refills, Maintenance, 07/11/23 13:02:00 EDT, [place], [facility]/pharmacy #[id number], Partial fill upon patient request if the prescription is for a schedule II opioid drug., 2 sprays Nares, Both Daily, 181.5, cm, 07/11/23 1... Start Date: 07/11/23 Status: Ordered fluticasone 50 mcg/inh nasal spray 2 sprays, Nares, Both, Daily in AM, 0 Refills, Maintenance, 07/14/21 14:22:00 EDT, [place], Partial fill upon patient request if the [...] 03/27/23 17:30:00 EDT, Route to Pharmacy Electronically, [facility]/pharmacy #[id number], override needed for lost prescription, thanks., 181.5, cm, 03/07/23 10:11:0... Start Date: 03/27/23 Status: Ordered levothyroxine 0.112 mg oral tablet 2 tablet = 224 mcg, By Mouth, Daily, for 30 days, # 60 tablet, 0 Refills, Hard Stop 08/09/23 12:54:00 EST, 07/10/23 12:54:00 EDT, Tablet, [facility]/pharmacy #[id number], 181.5, cm, 06/06/23 16:27:00 EDT, Height,103, kg, 10/26/22 11:39:00 EST, Dry Weight Start Date: 07/10/23 Stop Date: 08/09/23 Status: Ordered levothyroxine 0.2 mg oral tablet 1 tablet = 200 mcg, By Mouth, Daily, # 30 tablet, 5 Refills, Maintenance, 07/14/23 18:02:00 EDT, Tablet, [facility]/pharmacy #[id number], dose reduction, 181.5, cm, 07/11/23 11:00:00 [...] Start Date: 07/13/21 Status: Ordered nystatin topical 850786 u/gm powder See Instructions, apply to stump 3 x day, # 120 Gm, 5 Refills, Maintenance, 04/23/23 15:43:00 EDT, Powder, [id number], Partial fill upon patient request if the prescription is for a schedule II opioid drug., apply to stump 3 x day, 181.5, cm... Start Date: 04/23/23 Status: Ordered nystatin topical 070790 u/gm powder See Instructions, apply to stump [...] film, 0 Refills, Maintenance, 06/25/23 10:13:00 EDT, [facility]/pharmacy #0686, [id number], 1.5 films sublingual in AM, 1 film sublingual in PM, 181.5, cm, 06/06/23 16:27:00 EDT, [place]ie... Start Date: 06/25/23 Status: Ordered tamsulosin 0.4 mg oral capsule 0.4 mg, 1, capsule, By Mouth, Daily, # 90 capsule, Refills 3, Tot. Refills 3, Maintenance, 12/20/2315:00:00 EDT, Route to Pharmacy Electronically, [facility]/pharmacy #0612, Partial fill upon patient request if the [...] Care team information Care Team Personnel Name: Javier RNCayla Position: [facility] ED RN W/OE and Tasks Member Role: Primary Care Nurse Name: Alka Lee RN Position: [facility] SN RN Member Role: Primary Care Nurse Name: Jaleel Lo RN Position: [facility] RN Member Role: Primary Care Nurse Name: Ivy Smith RN Position: [facility] RN Member Role: Primary Care Nurse Name: Efra Mejia MD Position: [facility] Physician - Primary Care Member Role: PCP Address: Address: [address] [place] [id number] Name: Devorah Johnson RN Position: [facility] RN Member Role: Primary Care Nurse Name: Dustin Chavez RN Position: [facility] RN Member Role: Primary Care Nurse Name: Litzy Weinberg RN Position: [facility] RN Member Role: Primary Care Nurse Name: Melanie Garay Position: [facility] RN Member Role: Primary Care Nurse Name: Yoselyn Patrick RN Position: [facility] RN Member Role: Primary Care Nurse Name: Michelle Akbar [place] Position: [facility] RN Member Role: Primary Care Nurse Name: Saundra Gonzalez Position: [facility] RN Member Role: Primary Care Nurse Name: Sofía Moreno RN Position: [facility] RN Member Role: Primary Care Nurse Name: Sary Tong RN Position: [facility] RN Member Role: Primary Care Nurse Name: Danielito Woo RN Position: [facility] Optical Brightener Maker Helper Member Role: Primary Care Nurse Care Team Related Persons Name: TINY STEPHENS Address: [address], [place] Name: FERNIE CUMMINS Address: home [address], [place] Name: TINY CUMMINS Address: home [address], [place]
--- OUTSIDE RECORDS SUMMARY | 2023-10-18 20:36 | XMS_ITS | Continuity of Care Document ---
Author Name Unknown Organization [facility] Address [address] [place] [id number]- Care Team Providers Care Jtac Name Role Phone Roberto CH, Efra Miramontes Primary Care Physician Encounter [facility] [place] Date(s): 08/14/21 - 09/13/21 [facility] [address] [place] [id number] Attending Physician: Bobby Sandoval Admitting Physician: AdmBobby mckeon Referring Physician: Admtr, ArGisselle Allergies, Adverse Reactions, Alerts Substance Reaction Severity [...] vaccine 8 04/01/12 Given 1Result Comment: [facility]#[id number] 2Result Comment: [07/31/2018] [facility]# [id number] 3Result Comment: [08/26/2015] [facility] 4Admin Note: VIM 03/17/12 5Admin Note: VIM 04/10/11 6Admin Note: VIM 08/03/08 7Admin Note: VIS GIVEN 04/10/13 8Admin Note: vis given dated 06/21/09 Medications donepezil 5 mg oral tablet 5 mg, 1, tablet, By Mouth, Daily, # 30 tablet, Refills 5, Tot. Refills 5, Maintenance, 06/02/21 14:20:00 EDT, Route to Pharmacy Electronically, [facility]/pharmacy #[id number], Partial fill upon patient request [...] 08/31/21 11:40:00 EST, Route to Pharmacy Electronically, [facility]/pharmacy #[id number], Partial fill upon patient requestif the prescription is for a schedule II opioid valencia... Start Date: 08/31/21 Status: Ordered fluticasone 50 mcg/inh nasal spray 2 sprays, Nares, Both, Daily in AM, 0 Refills, Maintenance, 07/14/21 14:22:00 EDT, [place], Partial fill upon patient request if the [...] 08/31/21 11:39:00 EST, Route to Pharmacy Electronically, [facility]/pharmacy #[id number], Partial fill upon patient request if the prescription is for a schedule II... Start Date: 08/31/21 Status: Ordered levothyroxine 0.112 mg oral tablet 2 tablet = 224 mcg, By Mouth, Daily, # 60 tablet, 5 Refills, Maintenance, 10/27/20 10:22:00 EST, Tablet, [facility]/pharmacy #[id number], 183, cm, 10/27/20 8:41:00 EST, [...] Start Date: 07/13/21 Status: Ordered nystatin topical 028193 u/gm powder See Instructions, apply to stump 3 x day, # 120 Gm, 5 Refills, Maintenance, 07/06/21 12:35:00 EDT, Powder, [facility]/pharmacy #[id number], Partial fill upon patient request if the prescription is for a schedule II opioid drug., apply to stump 3 x day, 180, cm,... Start Date: 07/06/21 Status: Ordered omeprazole 20 mg oral enteric coated capsule 1 capsule = 20 mg, By Mouth, Daily, # 30 capsule, 5 Refills, Maintenance, 10/27/20 10:22:00 EST, ECCapsule, [facility]/pharmacy #[id number], 183, cm, 10/27/20 8:41:00 EST, [...] Maintenance, 07/06/2111:55:00 EDT, Route to Pharmacy Electronically, [facility]/pharmacy #[id number], Partial fill upon patient request if the prescription is for a schedule II opioid d... Start Date: 07/06/21 Status: Ordered Trulicity Pen 0.75 mg/0.5 mL subcutaneous solution 0.5 mL = 0.75 mg, Subcutaneous Injection, Every week, rotate injection sites, # 2 mL, 0 Refills, Maintenance, 07/06/21 12:35:00 EDT, Solution, [facility]/pharmacy #[id number], Partial fill upon patient request ifthe [...]
--- OUTSIDE RECORDS SUMMARY | 2023-10-18 20:36 | XMS_ITS | Continuity of Care Document ---
Author Name Unknown Organization [facility] Address [address] [place] [address]- Care Team Providers Care Supervisor Keymodule Assembly Name Role Phone Efra Mejia MD Primary Care Physician [phone] Encounter [facility] Date(s): 11/12/19 - 11/19/19 [facility] [address] [place] [address]- [place] Encounter Diagnosis Diabetic nephropathy(Discharge Diagnosis) - 11/12/19 Attending Physician: Efra Mejia MD Allergies, Adverse [...] [07/31/2018] [facility]# [id number] 2Result Comment: [08/26/2015] done at [facility] 3Admin Note: VIM 03/17/12 4Admin Note: [...] Maintenance, 07/02/16 16:06:12, Route to Pharmacy Electronically, [id number], [facility] #[facility] Start Date: [...] 5 Refills, Maintenance, 10/22/19 10:55:00 EST, Tablet, [facility]/pharmacy #[id number], 180.3, cm, 10/22/19 10:14:00 EST, Height, 118.5, kg, 05/12/19 10:33:00 EDT, Dry Weight Start Date: 10/22/19 Status: Ordered ibuprofen 800 mg oral tablet 800 mg, 1, tablet, By Mouth, Every 8 hours, PRN, # 90 tablet, Refills 0, Tot. Refills 0, Maintenance, as needed for pain, 04/10/19 17:13:55 EDT, Route to Pharmacy Electronically, [id number], [facility] #[facility] Start Date: [...] 5 Refills, Maintenance, 11/17/19 8:28:00 EST, Solution, [facility]/pharmacy #[id number], 180.3, cm, 11/12/19 15:07:00 EST, [...] 01/20/18 13:36:03 EDT, Route to Pharmacy Electronically, [id number], [facility] #[facility] Start Date: [...] 11/12/19 15:56:00 EST, Route to Pharmacy Electronically, [facility]/pharmacy #[id number], 180.3, cm, 11/12/19 15:07:00 EST, [...] Weight Start Date: 08/27/19 Status: Ordered Pen [place], 29 G x 12.7 mm BD Ultra [...] Clinical Service Informant Diabetic nephropathy Discharge Diagnosis 11/12/19 Vital Signs Most recent to oldest [Reference Range]: 1 Height 180.3 cm (11/12/19 8:43 AM) Weight 121.4 kg (11/12/19 8:43 AM) Oxygen Saturation [94-100 %] 95 % (11/12/19 8:43 AM) Pulse Rate [55-90 bpm] 71 bpm (11/12/19 8:43 AM) Body Mass Index [18.5-24.99] 37.34 *>HHI* (11/12/19 8:43 AM) Blood Pressure [90-138/55-84 mm Hg] 140/ 88mm Hg *H* (11/12/19 8:43 AM) Blood pressure sites Arm, left (11/12/19 8:43 AM) Weight Obtained Via Standing scale (11/12/19 8:43 AM) Social History Social History Type Response Tobacco Other: 3 cigars brenden y. Sex
--- OUTSIDE RECORDS SUMMARY | 2023-10-18 20:36 | XMS_ITS | Continuity of Care Document ---
Author Name Unknown Organization [facility] Address [address] [place] [address]- Care Team Providers Care Screen Operator Name Role Phone Efra eMjia MD Primary Care Physician Encounter [facility] Date(s): 06/22/20 - 07/22/20 [facility] [address] [place] [address]- Allergies, Adverse Reactions, Alerts Substance Reaction Severity [...] acel(Tdap) 7 03/05/11 Given 1Result Comment: [07/31/2018] [facility]# [id number] 2Result Comment: [08/26/2015] done at [facility] 3Admin Note: VIM 03/17/12 4Admin Note: VIM 04/10/11 5Admin Note: VIS GIVEN 04/10/13 6Admin Note: vis given dated 06/21/09 7Admin Note: VIM 08/03/08 Medications albuterol CFC free 90 mcg/inh inhalation aerosol 1, puffs, Inhalation, 4 times a day, PRN, # 18 Gm, Refills 0, Tot. Refills 0, Maintenance, 12/02/2009:56:00 EDT, Aerosol, Route to Pharmacy Electronically, [id number], [facility]/pharmacy #[id number], 180.3, cm, 11/12/19 15:07:00 EST, He... [...] Maintenance, 07/02/16 16:06:12, Route to Pharmacy Electronically, [id number], [facility] #[facility] Start Date: [...] Status: Ordered gabapentin 100 mg oral capsule 100 mg, 1, capsule, By Mouth, 2 times a day, # 60 capsule, Refills 2, Tot. Refills 2, Maintenance, 07/12/20 15:44:00 EDT, Route to Pharmacy Electronically, [facility]/pharmacy #[id number], 183, cm, 07/12/20 14:47:00 EDT, Height, 119, kg, 07/09/20 0:11:00 EDT, Dry... Start Date: 07/12/20 Status: Ordered Insulin Syringe, BD Ultra-Fine 0.3 [...] Refills, Maintenance, 05/31/20 14:57:00 EDT, Solution, [facility]/pharmacy #[id number], 180.3, cm, 05/31/20 14:08:00 EDT, Height, 120.7, kg, 11/03/19 13:31:00 EST, Dry Weight Start Date: 05/31/20 Status: Ordered levothyroxine 0.112 mg oral tablet 2 tablet = 224 mcg, By Mouth, Daily, # 60 tablet, 5 Refills, Maintenance, 07/10/20 12:51:00 EDT, Tablet, [facility]/pharmacy #[id number], 183, cm, 07/10/20 3:29:00 EDT, Height, 119, kg, 07/09/20 0:11:00 EDT, Dry Weight Start Date: 07/10/20 Stop Date: 01/06/21 Status: Ordered lisinopril 20 mg oral tablet 40 mg, 2, tablet, By Mouth, Daily, Refills 0, Maintenance, 07/10/20 12:49:00 EDT Start Date: 07/10/20 Status: Ordered Mavyret 100 mg-40 mg oral tablet 3 tablet, By Mouth, Daily, x 8 weeks, # 84 tablet, 1 Refills, Maintenance, 02/05/20 14:18:00 EDT, Tablet, [facility], 3 tablet By Mouth Daily,Instr:x 8 weeks, 180.3, cm, 01/19/20 14:07:00 EDT, Height, 120.7, kg, 11/03/19 13:31:00 EST,... Start Date: 02/05/20 Status: Ordered melatonin 5 mg oral capsule 1 capsule = 5 mg, By Mouth, Daily at bedtime, # 30 capsule, 2 Refills, Maintenance, 07/10/20 12:51:00 EDT, [facility][id number], 183, cm, 07/10/20 3:29:00 EDT, Height, 119, kg, 07/09/20 0:11:00 EDT, Dry Weight Start Date: 07/10/20 Status: Ordered MiraLax oral powder for reconstitution = 17 Gm, By Mouth, Daily, dissolve in water before taking, # 527 Gm, 1 Refills, Maintenance, 07/04/17 14:05:15, REC Powder, 17 Gm By Mouth Daily,Instr:dissolve in water before taking Start Date: 07/04/17 Status: Ordered MiraLax oral powder for reconstitution = 17 Gm, By Mouth, Daily, dissolve in water before taking, # 527 Gm, 5 Refills, Maintenance, 06/21/20 14:32:00 EDT, REC Powder, [facility]/pharmacy #[id number], 17 Gm By Mouth Daily,Instr:dissolve in water beforetaking, 180.3, cm, 06/21/20 13:42:00 EDT, Height, 1... Start Date: 06/21/20 Status: Ordered Nicoderm C-Q 21 mg/24 hr transdermal film, extended release 1 patch, Topically, Daily, # 30 patch, 4 Refills, Maintenance, 05/31/20 14:58:00 EDT, Patch, [facility]/pharmacy #[id number], 180.3, cm, 05/31/20 14:08:00 EDT, Height, 120.7, kg, 11/03/19 13:31:00 EST, Dry Weight Start Date: 05/31/20 Stop Date: 10/28/20 Status: Ordered omeprazole 20 mg oral enteric coated capsule 1 capsule = 20 mg, By Mouth, Daily, # 30 capsule, 5 Refills, Maintenance, 05/26/20 17:50:00 EDT, ECCapsule, [facility]/pharmacy #[id number], 180.3, cm, 05/06/20 16:07:00 EDT, Height, 120.7, kg, 11/03/19 13:31:00EST, Dry Weight Start Date: 05/26/20 Status: Ordered Pen [place], 29 G x 12.7 mm BD Ultra Fine See Instructions, # 1 box, Refills 3, Tot. Refills 3, Maintenance, use with NOvolog Pen injection twice daily, 06/18/19 9:42:43 EDT, Compound Start Date: 06/18/19 Status: Ordered tamsulosin 0.4 mg oral capsule 0.4 mg, 1, capsule, By Mouth, Daily, # 30 capsule, Refills 11, Tot. Refills 11, Maintenance, 07/05/20 16:10:00 EDT, Route to Pharmacy Electronically, [facility]/pharmacy #[id number], 180.3, cm, 06/21/20 13:42:00 EDT, Height, 120.7, kg, 11/03/19 13:31:00 EST, Dry W... Start Date: 07/05/20 Status: Ordered traZODone 50 mg oral tablet 25 mg, By Mouth, Daily at bedtime, PRN, # 30 tablet, Refills 1, Tot. Refills 1, Maintenance, Insomnia, 07/10/20 12:52:00 EDT, [id number], 183, cm, 07/10/20 3:29:00 EDT, Height, 119, kg, 07/09/20 0:11:00 EDT, D... Start Date: 07/10/20 Status: Ordered Walker See Instructions, # 1 [...]
--- OUTSIDE RECORDS SUMMARY | 2023-10-18 20:36 | XMS_ITS | Continuity of Care Document ---
Author Name Unknown Organization [facility] Address [address] [place] [address]- Care Team Providers Care Facility Technician Name Role Phone Efra Mejia MD Primary Care Physician Encounter [facility] Date(s): 03/28/23 - 04/27/23 [facility] [address] [place] [address]- Allergies, Adverse Reactions, Alerts No Known Allergies Immunizations Given and Recorded Vaccine Date Status Refusal Reason SARS-CoV-2 mRNA ([id number]) vax 04/27/22 Recorded influenza virus vaccine, inactivated [...] 1Result Comment: [facility]#[id number] 2Result Comment: [07/31/2018] [facility]# [id number] 3Result Comment: [08/26/2015] done at [facility] 4Admin Note: VIM 03/17/12 5Admin Note: VIM 04/10/11 6Admin Note: VIM 08/03/08 7Admin Note: VIS GIVEN 04/10/13 8Admin Note: vis given dated 06/21/09 Medications ARIPiprazole 5 mg oral tablet 5 mg, 1, tablet, By Mouth, Daily, # 90 tablet, Refills 1, Tot. Refills 1, Maintenance, 03/01/23 10:12:00 EDT, Route to Pharmacy Electronically, [facility]/pharmacy #[id number], Partial fill upon patient request if [...] 12:01:00 EST, Route to Pharmacy Electronically, [facility]/pharmacy #[id number], Partial fill upon patient request if [...] 05/07/23 15:44:00 EDT, 04/23/23 15:44:00 EDT, Tablet, [facility]/pharmacy #[id number], dose change, 181.5, cm, 04/23/23 15:02:00 EDT,Height, 103, kg, 10/26/22 11:39:00 EST, Dry Weight Start Date: 04/23/23 Stop Date: 05/07/23 Status: Ordered fluticasone 50 mcg/inh nasal spray 2 sprays, Nares, Both, Daily in AM, 0 Refills, Maintenance, 07/14/21 14:22:00 EDT, [place], Partial fill upon patient request if the [...] 17:30:00 EDT, Route to Pharmacy Electronically, [facility]/pharmacy #[id number], override needed for lost prescription, thanks., 181.5, cm, 03/07/23 10:11:0... Start Date: 03/27/23 Status: Ordered levothyroxine 0.112 mg oral tablet 2 tablet = 224 mcg, By Mouth, Daily, # 60 tablet, 2 Refills, Maintenance, 03/27/23 12:47:00 EDT, Tablet, [facility]/pharmacy #[id number], 181.5, cm, 03/07/23 10:11:00 EDT, Height, [...] Stop Date: 05/07/23 Status: Ordered nystatin topical 743664 u/gm powder See Instructions, apply to stump 3 x day, # 120 Gm, 5 Refills, Maintenance, 04/23/23 15:43:00 EDT, Powder, [id number], Partial fill upon patient request if the prescription is for a schedule II opioid drug., apply to stump 3 x day, 181.5, cm... Start Date: 04/23/23 Status: Ordered nystatin topical 985965 u/gm powder See Instructions, apply to stump [...] tablet, 1 Refills, Maintenance, 03/01/23 10:13:00EDT, Tablet, [facility]/pharmacy #[id number], Partial fill upon patient request if [...] in AM, 1 film sublingual in PM [id number], # 75 film, 1 Refills, Maintenance, 04/26/23 8:11:00 EDT, [facility]/pharmacy #[id number], 1.5 films sublingual in AM, 1 film sublingual in PM ; [id number], 181.5, cm, 04/23/23 15:02:... Start Date: 04/26/23 Status: Ordered tamsulosin 0.4 mg oral capsule 0.4 mg, 1, capsule, By Mouth, Daily, # 90 capsule, Refills 3, Tot. Refills 3, Maintenance, 12/20/2315:00:00 EDT, Route to Pharmacy Electronically, [facility]/pharmacy #[id number], Partial fill upon patient request if [...] Team Personnel Name: .Cayla Jean RN Position: [facility] ED RN W/OE and Tasks Member Role: Primary Care Nurse Name: Alka Lee RN Position: [facility] RN Member Role: Primary Care Nurse Name: Jaleel Lo RN Position: [facility] RN Member Role: Primary Care Nurse Name: Ivy Smith RN Position: [facility] RN Member Role: Primary Care Nurse Name: Efra Mejia MD Position: [facility] Physician - Primary Care Member Role: PCP Address: Address: [address] [place] [address] Name: Devorah Johnson RN Position: [facility] RN Member Role: Primary Care Nurse Name: Dustin Chavez RN Position: [facility] RN Member Role: Primary Care Nurse Name: Litzy Weinberg RN Position: [facility] RN Member Role: Primary Care Nurse Name: Melanie Garay Position: [facility] RN Member Role: Primary Care Nurse Name: Michelle Akbar [place] Position: [facility] RN Member Role: Primary Care Nurse Name: Saundra Gonzalez Position: [facility] RN Member Role: Primary Care Nurse Name: Sofía Moreno RN Position: [facility] RN Member Role: Primary Care Nurse Name: Sary Tong RN Position: [facility] RN Member Role: Primary Care Nurse Name: Sophia Lomas RN Position: [facility] RN Member Role: Primary Care Nurse Name: Danielito Woo RN Position: [facility] Hospital Strategic Planning Specialist Member Role: Primary Care Nurse Care Team Related Persons Name: TINY STEPHENS Address: [address] [place] [address] Name: FERNIE CUMMINS Address: [address] [place] [address] Name: TINY CUMMINS Address: [address] [address]
--- OUTSIDE RECORDS SUMMARY | 2023-10-18 20:36 | XMS_ITS | Continuity of Care Document ---
Author Name Unknown Organization [facility] Address [address] [place] [address]- Care Team Providers Care Proof Plate Maker Name Role Phone Roberto CH, Efra Miramontes Primary Care Physician [facility] [facility] Date(s): 08/30/22 - 09/29/22 [facility] [address] [place] [address]- Attending Physician: Bobby Sandoval Admitting Physician: AdmBobby [...] vaccine 8 04/01/12 Given 1Result Comment: [facility]#[id number] 2Result Comment: [07/31/2018] [facility]# [id number] 3Result Comment: [08/26/2015] [facility] 4Admin Note: VIM 03/17/12 5Admin Note: VIM 04/10/11 6Admin Note: VIM 08/03/08 7Admin Note: VIS GIVEN 04/10/13 8Admin Note: vis given dated 06/21/09 Medications ARIPiprazole 5 mg oral tablet 5 mg, 1, tablet, By Mouth, Daily, # 90 tablet, Refills 1, Tot. Refills 1, Maintenance, 09/28/22 8:16:00 EST, Route to Pharmacy Electronically, [facility]/pharmacy #[id number], Partial fill upon patient request ifthe prescription is for a schedule II opioid drug.,... Start Date: 09/28/22 Stop Date: 03/27/23 Status: Ordered citalopram 40 mg oral tablet 40 mg, 1, tablet, By Mouth, Daily, Take with food., # 90 tablet, Refills 1, Tot. Refills 1, Maintenance, 09/28/22 8:16:00 EST, Route to Pharmacy Electronically, [facility]/pharmacy #[id number], 181.5, cm, 08/30/22 16:11:00 EST, Height, 105, kg, 09/26/21 3:23:00 ES... Start Date: 09/28/22 Stop Date: 03/27/23 Status: Ordered donepezil 10 mg oral tablet 10 mg, 1, tablet, By Mouth, Daily at bedtime, # 90 tablet, Refills 1, Tot. Refills 1, Maintenance, 05/08/22 9:47:00 EDT, Route to Pharmacy Electronically, [facility]/pharmacy #[id number], Partial fill upon patient [...] AM, 0 Refills, Maintenance, 07/14/21 14:22:00 EDT, [place], Partial fill upon patient request if the [...] capsule, Refills 2, Tot. Refills 2, Maintenance, 09/17/22 12:54:00 EST, Route to Pharmacy Electronically, [facility]/pharmacy #[id number], Partial fill upon patient request if the prescription is for a schedule II... Start Date: 09/17/22 Status: Ordered levothyroxine 0.112 mg oral tablet 2 tablet = 224 mcg, By Mouth, Daily, # 60 tablet, 2 Refills, Maintenance, 09/05/22 12:50:00 EST, Tablet, [id number], 181.5, cm, 08/30/22 16:11:00 EST, Height, 105, kg, 09/26/21 3:23:00 EST, Dry Weight Start Date: 09/05/22 Stop Date: 12/04/22 Status: Ordered melatonin 5 mg oral tablet 1 tablet = 5 mg, By Mouth, Daily at bedtime, PRN for insomnia, # 60 tablet, 0 Refills, Maintenance,07/13/21 22:12:00 EDT, Tablet, Partial fill upon patient request if the prescription is for a schedule II opioid drug. Start Date: 07/13/21 Status: Ordered nystatin topical 999824 u/gm powder See Instructions, apply to stump 3 x day, # 120 Gm, 5 Refills, Maintenance, 07/06/21 12:35:00 EDT, Powder, [facility]/pharmacy #[id number], Partial fill upon patient request if the prescription is for a schedule II opioid drug., apply to stump 3 x day, 180, cm,... Start Date: 07/06/21 Status: Ordered omeprazole 20 mg oral enteric coated capsule 1 capsule = 20 mg, By Mouth, Daily, # 30 capsule, 0 Refills, Maintenance, 08/28/22 13:07:00 EST, ECCapsule, [facility]/pharmacy #[id number], 181.5, cm, 05/08/22 8:39:00 EDT, Height, 105, kg, 09/26/21 3:23:00 EST, Dry Weight Start Date: 08/28/22 Status: Ordered prazosin 2 mg oral capsule 2 capsule = 4 mg, By Mouth, Daily at bedtime, dose increase, # 180 capsule, 1 Refills, Maintenance,09/28/22 8:17:00 EST, Capsule, [facility]/pharmacy #[id number], Partial fill upon patient request if the prescription is for a schedule II opioid drug., 181.5, cm,... Start Date: 09/28/22 Stop Date: 03/27/23 Status: Ordered ramelteon 8 mg oral tablet 1 tablet = 8 mg, By Mouth, Daily at bedtime, # 90 tablet, 1 Refills, Maintenance, 09/28/22 8:16:00 EST, Tablet, [facility]/pharmacy #[id number], Partial fill upon patient request if the prescription is for a schedule II opioid drug., 181.5, cm, 08/30/22 16:11:00 E... Start Date: 09/28/22 Stop Date: 03/27/23 Status: Ordered Suboxone 8 mg-2 mg Sublingual Film See Instructions, 1.5 films sublingual in AM, 1 film sublingual in PM [id number], # 75 film, 1 Refills, Maintenance, 09/28/22 8:16:00 EST, [facility]/pharmacy #[id number], 1.5 films sublingual in AM, 1 film sublingual in PM ; [id number], 181.5, cm, 08/30/22 16:11:... Start Date: 09/28/22 Status: Ordered tamsulosin 0.4 mg oral capsule 0.4 mg, 1, capsule, By Mouth, Daily, # 90 capsule, Refills 3, Tot. Refills 3, Maintenance, 07/06/2111:55:00 EDT, Route to Pharmacy Electronically, [facility]/pharmacy #[id number], Partial fill upon patient request if the prescription is for a schedule II opioid d... Start Date: 07/06/21 Status: Ordered Problem List Condition Confirmation Course [...] Team Personnel Name: Alka Lee RN Position: [facility] RN Member Role: Primary Care Nurse Name: Jaleel Lo RN Position: S RN Member Role: Primary Care Nurse Name: Ivy Smith RN Position: S RN Member Role: Primary Care Nurse Name: Efra Mejia MD Position: [facility] Primary Care Physician Member Role: PCP Address: Address: [address] [place] [id number] Name: Devorah Johnson RN Position: [facility] RN Member Role: Primary Care Nurse Name: Dustin Chavez RN Position: [facility] RN Member Role: Primary Care Nurse Name: Litzy Weinberg RN Position: [facility] RN Member Role: Primary Care Nurse Name: Melanie Garay Position: [facility] RN Member Role: Primary Care Nurse Name: Yoselyn Patrick RN Position: [facility] RN Member Role: Primary Care Nurse Name: Michelle Buckley Position: [facility] RN Member Role: Primary Care Nurse Name: Saundra Gonzalez Position: [facility] RN Member Role: Primary Care Nurse Name: Sofía Moreno RN Position: [facility] RN Member Role: Primary Care Nurse Name: Sary Tong RN Position: [facility] RN Member Role: Primary Care Nurse Name: Sophia Lomas RN Position: [facility] RN Member Role: Primary Care Nurse Name: Danielito Woo RN Position: [facility] [employer] Filer Member Role: Primary Care Nurse Care Team Related Persons Name: TINY STEPHENS Address: [address] [place], [place] Name: FERNIE CUMMINS Address: [address] [place], [place] Name: TINY CUMMINS Address: [address] [place], [place]
--- OUTSIDE RECORDS SUMMARY | 2023-10-18 20:36 | XMS_ITS | Continuity of Care Document ---
Author Name Unknown Organization [facility] Address Unknown Care Team Providers Care Juvenile Counselor Name Role Phone Roberto CH, Efar Miramontes Primary Care Physician Encounter [facility] [place] Date(s): 11/06/21 - 12/06/21 [facility] Attending Physician: Bobby Sandoval Admitting Physician: Bobby Sandoval Referring Physician: Bobby Sandoval Allergies, Adverse Reactions, Alerts No Known Allergies [...] 23-valent vaccine 8 04/01/12 Given 1Result Comment: [facility]#[id number] 2Result Comment: [07/31/2018] [facility]# [id number] 3Result Comment: [08/26/2015] done at [facility] 4Admin Note: VIM 03/17/12 5Admin Note: VIM 04/10/11 6Admin Note: VIM 08/03/08 7Admin Note: VIS GIVEN 04/10/13 8Admin Note: vis given dated 06/21/09 Medications donepezil 5 mg oral tablet 1, tablet, By Mouth, Daily, # 90 tablet, Refills 1, Route to Pharmacy Electronically, [id number], 181.5, cm, 09/28/21 12:39:00 EST, Height, 105, [...] AM, 0 Refills, Maintenance, 07/14/21 14:22:00 EDT, [place], Partial fill upon patient request if the [...] 08/31/21 11:39:00 EST, Route to Pharmacy Electronically, [facility]/pharmacy #[id number], Partial fill upon patient request if the prescription is for a schedule II... Start Date: 08/31/21 Status: Ordered Iodosorb 0.9% topical gel See Instructions, Continue wound care with iodosorb gel and 2x2 dressing daily to small wound Betadine pain to incision, # 1 each, 0 Refills, Maintenance, 09/28/21 18:43:00 EST, [facility]/pharmacy #[id number], Partial fill upon patient request if the prescripti... Start Date: 09/28/21 Status: Ordered levothyroxine 0.112 mg oral tablet 2 tablet = 224 mcg, By Mouth, Daily, # 60 tablet, 5 Refills, Maintenance, 10/27/20 10:22:00 EST, Tablet, [facility]/pharmacy #[id number], 183, cm, 10/27/20 8:41:00 EST, [...] Start Date: 07/13/21 Status: Ordered nystatin topical 590216 u/gm powder See Instructions, apply to stump 3 x day, # 120 Gm, 5 Refills, Maintenance, 07/06/21 12:35:00 EDT, Powder, [facility]/pharmacy #[id number], Partial fill upon patient request if the prescription is for a schedule II opioid drug., apply to stump 3 x day, 180, cm,... Start Date: 07/06/21 Status: Ordered omeprazole 20 mg oral enteric coated capsule 1 capsule = 20 mg, By Mouth, Daily, # 30 capsule, 5 Refills, Maintenance, 10/27/20 10:22:00 EST, ECCapsule, [facility]/pharmacy #[id number], 183, cm, 10/27/20 8:41:00 EST, Height, 119, kg, 09/23/20 17:06:00 EST,Dry Weight Start Date: 10/27/20 Status: Ordered tamsulosin 0.4 mg oral capsule 0.4 mg, 1, capsule, By Mouth, Daily, # 90 capsule, Refills 3, Tot. Refills 3, Maintenance, 07/06/2111:55:00 EDT, Route to Pharmacy Electronically, [facility]/pharmacy #[id number], Partial fill upon patient request if the prescription is for a schedule II opioid d... Start Date: 07/06/21 Status: Ordered Trulicity Pen 0.75 mg/0.5 mL subcutaneous solution 0.5 mL = 0.75 mg, Subcutaneous Injection, Every week, rotate injection sites, # 2 mL, 5 Refills, Maintenance, 10/05/21 11:20:00 EST, Solution, [id number], Partial fill upon patient request ifthe prescription [...]
--- OUTSIDE RECORDS SUMMARY | 2023-10-18 20:36 | XMS_ITS | Continuity of Care Document ---
Author Name Unknown Organization [facility] Address [address] [place] [address]- Care Team Providers Care Research Lab Assistant Name Role Phone Efra Mejia MD Primary Care Physician [place] [facility] [place] 04/26/23 [facility] [address] [place] [address]- Allergies, Adverse Reactions, Alerts No Known Allergies Immunizations Given and Recorded Vaccine Date Status Refusal Reason SARS-CoV-2 mRNA ([id number]) vax 04/27/22 Recorded influenza virus vaccine, inactivated [...] 23-valent vaccine 8 04/01/12 Given 1Result Comment: [facility]#[id number] 2Result Comment: [07/31/2018] [facility]# [id number] 3Result Comment: [08/26/2015] done at [facility] 4Admin Note: VIM 03/17/12 5Admin Note: VIM 04/10/11 6Admin Note: VIM 08/03/08 7Admin Note: VIS GIVEN 04/10/13 8Admin Note: vis given dated 06/21/09 Medications ARIPiprazole 5 mg oral tablet 5 mg, 1, tablet, By Mouth, Daily, # 90 tablet, Refills 1, Tot. Refills 1, Maintenance, 03/01/23 10:12:00 EDT, Route to Pharmacy Electronically, [facility]/pharmacy #[id number], Partial fill upon [...] 10/11/22 12:01:00 EST, Route to Pharmacy Electronically, [facility]/pharmacy #[id number], Partial fill upon [...] 05/07/23 15:44:00 EDT, 04/23/23 15:44:00 EDT, Tablet, [facility]/pharmacy #[id number], dose change, 181.5, cm, 04/23/23 15:02:00 EDT,Height, 103, kg, 10/26/22 11:39:00 EST, Dry Weight Start Date: 04/23/23 Stop Date: 05/07/23 Status: Ordered fluticasone 50 mcg/inh nasal spray 2 sprays, Nares, Both, Daily in AM, 0 Refills, Maintenance, 07/14/21 14:22:00 EDT, [place], Partial fill upon patient request if the [...] 03/27/23 17:30:00 EDT, Route to Pharmacy Electronically, [facility]/pharmacy #[id number], override needed for lost prescription, thanks., 181.5, cm, 03/07/23 10:11:0... Start Date: 03/27/23 Status: Ordered levothyroxine 0.112 mg oral tablet 2 tablet = 224 mcg, By Mouth, Daily, # 60 tablet, 2 Refills, Maintenance, 03/27/23 12:47:00 EDT, Tablet, [facility]/pharmacy #[id number], 181.5, cm, 03/07/23 10:11:00 [...] Stop Date: 05/07/23 Status: Ordered nystatin topical 344056 u/gm powder See Instructions, apply to stump 3 x day, # 120 Gm, 5 Refills, Maintenance, 04/23/23 15:43:00 EDT, Powder, [id number], Partial fill upon patient request if the prescription is for a schedule II opioid drug., apply to stump 3 x day, 181.5, cm... Start Date: 04/23/23 Status: Ordered nystatin topical 208183 u/gm powder See Instructions, apply to stump [...] tablet, 1 Refills, Maintenance, 03/01/23 10:13:00EDT, Tablet, [facility]/pharmacy #[id number], Partial fill upon [...] in AM, 1 film sublingual in PM [id number], # 75 film, 1 Refills, Maintenance, 04/26/23 8:11:00 EDT, [facility]/pharmacy #[id number], 1.5 films sublingual in AM, 1 film sublingual in PM ; [id number], 181.5, cm, 04/23/23 15:02:... Start Date: 04/26/23 Status: Ordered tamsulosin 0.4 mg oral capsule 0.4 mg, 1, capsule, By Mouth, Daily, # 90 capsule, Refills 3, Tot. Refills 3, Maintenance, 12/20/2315:00:00 EDT, Route to Pharmacy Electronically, [facility]/pharmacy #[id number], Partial fill upon [...] Team Personnel Name: .Cayla Jean RN Position: [facility] ED RN W/OE and Tasks Member Role: Primary Care Nurse Name: Alka Lee RN Position: [facility] RN Member Role: Primary Care Nurse Name: Jaleel Lo RN Position: [facility] RN Member Role: Primary Care Nurse Name: Ivy Smith RN Position: [facility] RN Member Role: Primary Care Nurse Name: Efra Mejia MD Position: [facility] Physician - Primary Care Member Role: PCP Address: Address: [address] [place] [address] Name: Devorah Johnson RN Position: [facility] RN Member Role: Primary Care Nurse Name: Dustin Chavez RN Position: [facility] RN Member Role: Primary Care Nurse Name: Litzy Weinberg RN Position: [facility] RN Member Role: Primary Care Nurse Name: Melanie Garay Position: [facility] RN Member Role: Primary Care Nurse Name: Michelle Akbar [place] Position: [facility] RN Member Role: Primary Care Nurse Name: Saundra Gonzalez Position: [facility] RN Member Role: Primary Care Nurse Name: Sofía Moreno RN Position: [facility] RN Member Role: Primary Care Nurse Name: Sary Tong RN Position: [facility] RN Member Role: Primary Care Nurse Name: Sophia Lomas RN Position: [facility] RN Member Role: Primary Care Nurse Name: Danielito Woo RN Position: [facility] Hospital Back Tender Paper Machine Member Role: Primary Care Nurse Care Team Related Persons Name: TINY STEPHENS Address: [address] [place] [address] Name: FERNIE CUMMINS Address: [address] [place] [address] Name: TINY CUMMINS Address: [address] [address]
--- OUTSIDE RECORDS SUMMARY | 2023-10-18 20:36 | XMS_ITS | Continuity of Care Document ---
Author Name Unknown Organization [facility] Address [address] [place] [address]- Care Team Providers Care Senior Structural Engineer Name Role Phone Efra Mejia MD Primary Care Physician [phone] [place] [facility] [place]/09[place]22 - 06/09/22 [facility] [address] [place], [place] [address] Attending Physician: Efra Mejia MD Allergies, Adverse [...] 23-valent vaccine 8 04/01/12 Given 1Result Comment: [facility]#[id number] 2Result Comment: [07/31/2018] formerly named [facility]# [id number] 3Result Comment: [08/26/2015] done at [facility] 4Admin Note: VIM 03/17/12 5Admin Note: VIM 04/10/11 6Admin Note: VIM 08/03/08 7Admin Note: VIS GIVEN 04/10/13 8Admin Note: vis given dated 06/21/09 Medications ARIPiprazole 5 mg oral tablet 5 mg, 1, tablet, By Mouth, Daily, # 90 tablet, Refills 1, Tot. Refills 1, Maintenance, 06/05/22 10:07:00 EDT, Route to Pharmacy Electronically, [facility]/pharmacy #[id number], Partial fill upon patient request if the prescription is for a schedule II opioid drug.... Start Date: 06/05/22 Stop Date: 12/02/22 Status: Ordered buprenorphine-naloxone 8 mg-2 mg sublingual film See Instructions, 1.5 films sublingual in AM; 1 film sublingual in PM [id number], # 75 film, 1 Refills, Maintenance, 01/23/22 12:38:00 EDT, Film, [facility]/pharmacy #[id number], Partial fill upon patient request if the prescription is for a schedule II opioid drJean. Start Date: 01/23/22 Status: Ordered citalopram 40 mg oral tablet 40 mg, 1, tablet, By Mouth, Daily, Take with food., # 90 tablet, Refills 1, Tot. Refills 1, Maintenance, 06/05/22 10:06:00 EDT, Route to Pharmacy Electronically, [facility]/pharmacy #[id number], 181.5, cm, 05/08/22 8:39:00 EDT, Height, 105, kg, 09/26/21 3:23:00 ES... Start Date: 06/05/22 Stop Date: 12/02/22 Status: Ordered donepezil 10 mg oral tablet 10 mg, 1, tablet, By Mouth, Daily at bedtime, # 90 tablet, Refills 1, Tot. Refills 1, Maintenance, 05/08/22 9:47:00 EDT, Route to Pharmacy Electronically, [facility]/pharmacy #[id number], Partial fill upon patient [...] AM, 0 Refills, Maintenance, 07/14/21 14:22:00 EDT, [place], Partial fill upon patient request if the [...] 03/22/22 15:36:00 EDT, Route to Pharmacy Electronically, [facility]/pharmacy #[id number], Partial fill upon patient request if the prescription is for a schedule II... Start Date: 03/22/22 Status: Ordered Iodosorb 0.9% topical gel See Instructions, Continue wound care with iodosorb gel and 2x2 dressing daily to small wound Betadine pain to incision, # 1 each, 0 Refills, Maintenance, 09/28/21 18:43:00 EST, [facility]/pharmacy #[id number], Partial fill upon patient request if the prescripti... Start Date: 09/28/21 Status: Ordered levothyroxine 0.112 mg oral tablet 2 tablet = 224 mcg, By Mouth, Daily, # 60 tablet, 2 Refills, Maintenance, 03/22/22 13:10:00 EDT, Tablet, [facility]/pharmacy #[id number], 181.5, cm, 09/28/21 12:39:00 EST, Height, 105, kg, 09/26/21 3:23:00 EST, Dry Weight Start Date: 03/22/22 Stop Date: 06/20/22 Status: Ordered lidocaine-prilocaine 2.5%-2.5% topical cream = 15 Gm, Topically, Once, Apply small amount to area of injection site one hour prior to injection,# 15 Gm, 0 Refills, Soft Stop, 06/05/22 10:10:00 EDT, [facility]/pharmacy #[id number], Partial fill upon patientrequest if the [...] Start Date: 07/13/21 Status: Ordered nystatin topical 594970 u/gm powder See Instructions, apply to stump 3 x day, # 120 Gm, 5 Refills, Maintenance, 07/06/21 12:35:00 EDT, Powder, [facility]/pharmacy #[id number], Partial fill upon patient request if the prescription is for a schedule II opioid drug., apply to stump 3 x day, 180, cm,... Start Date: 07/06/21 Status: Ordered omeprazole 20 mg oral enteric coated capsule 1 capsule = 20 mg, By Mouth, Daily, # 30 capsule, 2 Refills, Maintenance, 03/22/22 13:10:00 EDT, ECCapsule, [facility]/pharmacy #[id number], 181.5, cm, 09/28/21 12:39:00 EST, Height, 105, kg, 09/26/21 3:23:00 EST, Dry Weight Start Date: 03/22/22 Status: Ordered prazosin 2 mg oral capsule 1 capsule = 2 mg, By Mouth, Daily at bedtime, # 90 capsule, 1 Refills, Maintenance, 06/05/22 10:07:00 EDT, Capsule, [facility]/pharmacy #[id number], Partial fill upon patient request if the prescription is for a schedule II opioid drug., 181.5, cm, 05/08/22 8:39:0... Start Date: 06/05/22 Stop Date: 12/02/22 Status: Ordered ramelteon 8 mg oral tablet 1 tablet = 8 mg, By Mouth, Daily at bedtime, # 90 tablet, 1 Refills, Maintenance, 06/05/22 10:07:00EDT, Tablet, [facility]/pharmacy #[id number], Partial fill upon patient request if the prescription is for a schedule II opioid drug., 181.5, cm, 05/08/22 8:39:00 E... Start Date: 06/05/22 Stop Date: 12/02/22 Status: Ordered Sublocade 300 mg/1.5 mL subcutaneous solution, extended release = 300 mg, Subcutaneous Infusion, Every 28 days, [id number], # 1 kit, 0 Refills, Maintenance, 06/05/22 10:09:00 EDT, [facility]/pharmacy #[id number], Partial fill upon patient request if the prescription is for a schedule II opioid drug., 181.5, cm, 05/08/22 8:39:00... Start Date: 06/05/22 Stop Date: 06/06/22 Status: Ordered Suboxone 8 mg-2 mg Sublingual Film See Instructions, 1.5 films sublingual in AM, 1 film sublingual in PM dissolve under the tongue, # 53 film, 0 Refills, Maintenance, 04/09/22 14:34:00 EDT, [facility]/pharmacy #[id number], Partial fill upon patient request if the prescription is for a schedule II... Start Date: 04/09/22 Status: Ordered tamsulosin 0.4 mg oral capsule 0.4 mg, 1, capsule, By Mouth, Daily, # 90 capsule, Refills 3, Tot. Refills 3, Maintenance, 07/06/2111:55:00 EDT, Route to Pharmacy Electronically, [facility]/pharmacy #[id number], Partial fill upon patient request if the prescription is for a schedule II opioid d... Start Date: 07/06/21 Status: Ordered Trulicity Pen 0.75 mg/0.5 mL subcutaneous solution 0.5 mL = 0.75 mg, Subcutaneous Injection, Every week, rotate injection sites, # 2 mL, 5 Refills, Maintenance, 10/05/21 11:20:00 EST, [facility], [id number], Partial fill upon patient request ifthe prescription [...] brenden y. Sex Care Team Personnel Name: Roberto CH, Efra Miramontes Address: [address] [place] [address]
--- OUTSIDE RECORDS SUMMARY | 2023-10-18 20:36 | XMS_ITS | Continuity of Care Document ---
Author Name Unknown Organization [facility] Address [address] [place] [address]- Care Team Providers Care Geological E Logger Name Role Phone Efra Mejia MD Primary Care Physician [phone] [place] [facility] [place] 09/[place] [facility] [address] [place] [address]- Allergies, Adverse Reactions, Alerts No Known Allergies [...] inactivated 5 08/16/11 Gi raheem SARS-CoV-2 mRNA ([id number]) vax 04/27/22 Recorded zoster vaccine, inactivated 06/11/21 Recorded SARS-CoV-2 (COVID-19) mRNA BNT-162b2 vac 06/11/21 Recorded SARS-CoV-2 (COVID-19) mRNA BNT-162b2 vac 12/04/20 Recorded SARS-CoV-2 (COVID-19) mRNA BNT-162b2 vac 11/13/20 Recorded tetanus/diphtheria/pertussis, acel(Tdap) 05/07/21 Given tetanus/diphtheria/pertussis, acel(Tdap) 6 03/05/11 Given Influenza Virus Vaccine (oldterm) 06/08/19 Recorde d Fluarix (oldterm) 7 08/19/13 Given pneumococcal 23-valent vaccine 8 04/01/12 Given 1Result Comment: [facility]#[id number] 2Result Comment: [07/31/2018] [facility]# [id number] 3Result Comment: [08/26/2015] done at [facility] 4Admin Note: VIM 03/17/12 5Admin Note: VIM 04/10/11 6Admin Note: VIM 08/03/08 7Admin Note: VIS GIVEN 04/10/13 8Admin Note: vis given dated 06/21/09 Medications ARIPiprazole 5 mg oral tablet 5 mg, 1, tablet, By Mouth, Daily, # 90 tablet, Refills 1, Tot. Refills 1, Maintenance, 03/01/23 10:12:00 EDT, Route to Pharmacy Electronically, [facility]/pharmacy #[id number], Partial fill upon patient [...] 06/25/23 10:14:00 EDT, Route to Pharmacy Electronically, [facility]/pharmacy #[id number], 181.5, cm, 06/06/23 16:27:00 EDT, Height, 103, kg, 10/26/22 11:39:00... Start Date: 06/25/23 Stop Date: 12/22/23 Status: Ordered donepezil 10 mg oral tablet 1, tablet, By Mouth, Daily at bedtime, # 90 tablet, Refills 2, Maintenance, 07/26/23 16:19:00 EST, Route to Pharmacy Electronically, [facility] [id number], 181.5, cm, 07/11/23 11:00:00 EDT, Height, 103, kg, 10/26/22 11:39:00 EST, Dry Weight Start Date: 07/26/23 Status: Ordered famotidine 40 mg oral tablet 1 tablet = 40 mg, By Mouth, Daily at bedtime, # 30 tablet, 2 Refills, Maintenance, 08/21/23 14:50:00 EST, Tablet, [facility]/pharmacy #[id number], Partial fill upon patient request if the prescription is for a schedule II opioid drug., 181.5, cm, 07/11/23 11:00:00... Start Date: 08/21/23 Status: Ordered ferrous sulfate 325 mg oral enteric coated tablet 325 mg, By Mouth, Daily, Refills 3, Maintenance, 07/19/21 10:08:00 EDT, Partial fill upon patient request if the prescription is for a schedule II opioid drug. Start Date: 07/19/21 Status: Ordered fluticasone 50 mcg/inh nasal spray 2 sprays, Nares, Both, Daily, # 16 Gm, 0 Refills, Maintenance, 07/11/23 13:02:00 EDT, [place], [facility]/pharmacy #[id number], Partial fill upon patient request if the prescription is for a schedule II opioid drug., 2 sprays Nares, Both Daily, 181.5, cm, 07/11/23 1... Start Date: 07/11/23 Status: Ordered fluticasone 50 mcg/inh nasal spray 2 sprays, Nares, Both, Daily in AM, 0 Refills, Maintenance, 07/14/21 14:22:00 EDT, [place], Partial fill upon patient request if the [...] 03/27/23 17:30:00 EDT, Route to Pharmacy Electronically, [facility]/pharmacy #[id number], override needed for lost prescription, thanks., 181.5, cm, 03/07/23 10:11:0... Start Date: 03/27/23 Status: Ordered gabapentin 400 mg oral capsule 400 mg, 1, capsule, By Mouth, Daily, Refills 0, Maintenance, 09/05/23 10:23:00 EST, Partial fill upon patient request if the prescription is for a schedule II opioid drug. Start Date: 09/05/23 Status: Ordered levothyroxine 0.2 mg oral tablet 1 tablet = 200 mcg, By Mouth, Daily, # 30 tablet, 5 Refills, Maintenance, 07/14/23 18:02:00 EDT, Tablet, [facility]/pharmacy #[id number], dose reduction, 181.5, cm, 07/11/23 11:00:00 [...] Start Date: 07/13/21 Status: Ordered nystatin topical 523311 u/gm powder See Instructions, apply to stump 3 x day, # 120 Gm, 5 Refills, Maintenance, 04/23/23 15:43:00 EDT, Powder, [facility]/pharmacy #[id number], Partial fill upon patient request if the prescription is for a schedule II opioid drug., apply to stump 3 x day, 181.5, cm... Start Date: 04/23/23 Status: Ordered nystatin topical 657936 u/gm powder See Instructions, apply to stump 3 x day, # 120 Gm, 5 Refills, Maintenance, 07/06/21 12:35:00 EDT, Powder, [facility]/pharmacy #[id number], Partial fill upon patient [...] PM, # 75 film, 0 Refills, Maintenance, 09/06/23 9:40:00 EST, [id number], [id number]; for mid Sep 2023 refill, 1.5 films sublingual in AM, 1 film sublingual in PM, 181.5, cm, 10/... Start Date: 09/06/23 Status: Ordered tamsulosin 0.4 mg oral capsule 0.4 mg, 1, capsule, By Mouth, Daily, # 90 capsule, Refills 3, Tot. Refills 3, Maintenance, 12/20/2315:00:00 EDT, Route to Pharmacy Electronically, [facility]/pharmacy #[id number], Partial fill upon patient request if the [...] Team Personnel Name: Cayla Herrera RN Position: [facility] ED RN W/OE and Tasks Member Role: Primary Care Nurse Name: Alka Lee RN Position: [facility] SN RN Member Role: Primary Care Nurse Name: Jaleel Lo RN Position: [facility] RN Member Role: Primary Care Nurse Name: Ivy Smith RN Position: S RN Member Role: Primary Care Nurse Name: Efra Mejia MD Position: [facility] Physician - Primary Care Member Role: PCP Address: Address: [address] [place] [id number] Name: Devorah Johnson RN Position: [facility] SN RN Member Role: Primary Care Nurse Name: Dustin Chavez RN Position: [facility] RN Member Role: Primary Care Nurse Name: Litzy Weinberg RN Position: S RN Member Role: Primary Care Nurse Name: Melanie Garay Position: [facility] RN Member Role: Primary Care Nurse Name: Yoselyn Patrick RN Position: [facility] RN Member Role: Primary Care Nurse Name: Michelle Akbar [place] Position: [facility] RN Member Role: Primary Care Nurse Name: Saundra Gonzalez Position: [facility] RN Member Role: Primary Care Nurse Name: Sofía Moreno RN Position: [facility] RN Member Role: Primary Care Nurse Name: Sary Tong RN Position: [facility] RN Member Role: Primary Care Nurse Name: Danielito Woo RN Position: [facility] [employer] Keeper Member Role: Primary Care Nurse Care Team Related Persons Name: TINY STEPHENS Address: [address] [place], [place] Name: FERNIE CUMMINS Address: [address] [place], [place] Name: TINY CUMMINS Address: [address], [place]
--- OUTSIDE RECORDS SUMMARY | 2023-10-18 20:36 | XMS_ITS | Continuity of Care Document ---
Author Name Unknown Organization [facility] Address [address] [place] [address]- Care Team Providers Care Proof Press Operator Name Role Phone Efra Mejia MD Primary Care Physician Encounter [facility] Date(s): 07/11/23 - 08/10/23 [facility] [address] [place] [address]- Attending Physician: Bobby Sandoval Admitting Physician: Admtr, Bobby Referring Physician: Admtr, [...] inactivated 5 08/16/11 Gi raheem SARS-CoV-2 mRNA (ukatisz-lydn-absux) vax 04/27/22 Recorded zoster vaccine, inactivated 06/11/21 Recorded SARS-CoV-2 (COVID-19) mRNA BNT-162b2 vac 06/11/21 Recorded SARS-CoV-2 (COVID-19) mRNA BNT-162b2 vac 12/04/20 Recorded SARS-CoV-2 (COVID-19) mRNA BNT-162b2 vac 11/13/20 Recorded tetanus/diphtheria/pertussis, acel(Tdap) 05/07/21 Given tetanus/diphtheria/pertussis, acel(Tdap) 6 03/05/11 Given Influenza Virus Vaccine (oldterm) 06/08/19 Recorde d Fluarix (oldterm) 7 08/19/13 Given pneumococcal 23-valent vaccine 8 04/01/12 Given 1Result Comment: [facility]#[id number] 2Result Comment: [07/31/2018] [facility]# [id number] 3Result Comment: [08/26/2015] done at [facility] 4Admin Note: VIM 03/17/12 5Admin Note: VIM 04/10/11 6Admin Note: VIM 08/03/08 7Admin Note: VIS GIVEN 04/10/13 8Admin Note: vis given dated 06/21/09 Medications ARIPiprazole 5 mg oral tablet 5 mg, 1, tablet, By Mouth, Daily, # 90 tablet, Refills 1, Tot. Refills 1, Maintenance, 03/01/23 10:12:00 EDT, Route to Pharmacy Electronically, [facility]/pharmacy #[id number], Partial fill upon patient [...] 06/25/23 10:14:00 EDT, Route to Pharmacy Electronically, [facility]/pharmacy #[id number], 181.5, cm, 06/06/23 16:27:00 EDT, Height, 103, kg, 10/26/22 11:39:00... Start Date: 06/25/23 Stop Date: 12/22/23 Status: Ordered donepezil 10 mg oral tablet 1, tablet, By Mouth, Daily at bedtime, # 90 tablet, Refills 2, Maintenance, 07/26/23 16:19:00 EST, Route to Pharmacy Electronically, [id number], 181.5, cm, 07/11/23 11:00:00 EDT, Height, 103, kg, 10/26/22 11:39:00 EST, Dry Weight Start Date: 07/26/23 Status: Ordered famotidine 40 mg oral tablet 1 tablet = 40 mg, By Mouth, Daily at bedtime, # 30 tablet, 0 Refills, Maintenance, 07/11/23 13:01:00 EDT, Tablet, [facility]/pharmacy #[id number], Partial fill upon patient [...] Gm, 0 Refills, Maintenance, 07/11/23 13:02:00 EDT, Garden, [facility]/pharmacy #[id number], Partial fill upon patient request if the prescription is for a schedule II opioid drug., 2 sprays Nares, Both Daily, 181.5, cm, 07/11/23 1... Start Date: 07/11/23 Status: Ordered fluticasone 50 mcg/inh nasal spray 2 sprays, Nares, Both, Daily in AM, 0 Refills, Maintenance, 07/14/21 14:22:00 EDT, [place], Partial fill upon patient request if the [...] 03/27/23 17:30:00 EDT, Route to Pharmacy Electronically, [facility]/pharmacy #[id number], override needed for lost prescription, thanks., 181.5, cm, 03/07/23 10:11:0... Start Date: 03/27/23 Status: Ordered levothyroxine 0.2 mg oral tablet 1 tablet = 200 mcg, By Mouth, Daily, # 30 tablet, 5 Refills, Maintenance, 07/14/23 18:02:00 EDT, Tablet, [facility]/pharmacy #[id number], dose reduction, 181.5, cm, 07/11/23 [...] Start Date: 07/13/21 Status: Ordered nystatin topical 040963 u/gm powder See Instructions, apply to stump 3 x day, # 120 Gm, 5 Refills, Maintenance, 04/23/23 15:43:00 EDT, Powder, [facility]/pharmacy #[id number], Partial fill upon patient request if the prescription is for a schedule II opioid drug., apply to stump 3 x day, 181.5, cm... Start Date: 04/23/23 Status: Ordered nystatin topical 880838 u/gm powder See Instructions, apply to stump 3 x day, # 120 Gm, 5 Refills, Maintenance, 07/06/21 12:35:00 EDT, Powder, [facility]/pharmacy #[id number], Partial fill upon patient [...] capsule, 1 Refills, Maintenance,06/25/23 10:14:00 EDT, Capsule, [facility]/pharmacy #[id number], Partial fill upon patient request if the prescription is for a schedule II opioid drug., 181.5, cm,... Start Date: 06/25/23 Stop Date: 12/22/23 Status: Ordered ramelteon 8 mg oral tablet 1 tablet = 8 mg, By Mouth, Daily at bedtime, # 90 tablet, 1 Refills, Maintenance, 06/25/23 10:14:00EDT, Tablet, [facility]/pharmacy #[id number], Partial fill upon patient [...] film, 0 Refills, Maintenance, 06/25/23 10:13:00 EDT, [facility]/pharmacy #[id number], [id number], 1.5 films sublingual in AM, 1 film sublingual in PM, 181.5, cm, 06/06/23 16:27:00 EDT, Heig... Start Date: 06/25/23 Status: Ordered tamsulosin 0.4 mg oral capsule 0.4 mg, 1, capsule, By Mouth, Daily, # 90 capsule, Refills 3, Tot. Refills 3, Maintenance, 12/20/2315:00:00 EDT, Route to Pharmacy Electronically, [facility]/pharmacy #[id number], Partial fill upon patient request if the [...] not smok e cigarettes but vapes. Sex EKG study * Event Display: EKG Authored Date: * Event Display: EKG Authored Date: * Event Display: EKG Authored Date: Laboratory * Event Display: Non BH Lab Results Authored Date: * Event Display: Non BH Lab Results Authored Date: * Event Display: Non BH Lab Results Authored Date: Radiology * Event Display: CT Scan Shoulder, Non- BH Authored Date: * Event Display: CT Scan Shoulder Authored Date: * Event Display: CT Scan Shoulder Authored Date: * Event Display: CT Scan Knee Authored Date: Patient Care team information Care Team Personnel Name: Cayla Herrera RN Position: [facility] ED RN W/OE and Tasks Member Role: Primary Care Nurse Name: Alka Lee RN Position: [facility] SN RN Member Role: Primary Care Nurse Name: Jaleel Lo RN Position: [facility] RN Member Role: Primary Care Nurse Name: Ivy Smith RN Position: [facility] RN Member Role: Primary Care Nurse Name: Efra Mejia MD Position: [facility] Physician - Primary Care Member Role: PCP Address: Address: [address] [place] [id number] Name: Devorah Johnson RN Position: [facility] RN Member Role: Primary Care Nurse Name: Dustin Chavez RN Position: [facility] RN Member Role: Primary Care Nurse Name: Litzy Weinberg RN Position: [facility] RN Member Role: Primary Care Nurse Name: Melanie Garay Position: [facility] RN Member Role: Primary Care Nurse Name: Yoselyn Patrick RN Position: [facility] RN Member Role: Primary Care Nurse Name: Michelle Akbar [place] Position: [facility] RN Member Role: Primary Care Nurse Name: Saundra Gonzalez Position: [facility] RN Member Role: Primary Care Nurse Name: Sofía Moreno RN Position: [facility] RN Member Role: Primary Care Nurse Name: Sary Tong RN Position: [facility] RN Member Role: Primary Care Nurse Name: Danielito Woo RN Position: [facility] Training Specialist Member Role: Primary Care Nurse Care Team Related Persons Name: TINY STEPHENS Address: home [address] [place], [place] Name: FERNIE CUMMINS Address: home [address], [place] Name: TINY CUMMINS Address: home [address], [place]
--- OUTSIDE RECORDS SUMMARY | 2023-10-18 20:36 | XMS_ITS | Continuity of Care Document ---
Author Name Unknown Organization [facility] Address [address] [place] [address]- Care Team Providers Care Card Tape Converter Operator Name Role Phone Roberto CH, Efra Miramontes Primary Care Physician Encounter [facility] Date(s): 03/28/20 - 04/27/20 [facility] [address] [address]- [facility] Allergies, Adverse Reactions, Alerts Substance Reaction [...] acel(Tdap) 7 03/05/11 Given 1Result Comment: [07/31/2018] [facility]# [id number] 2Result Comment: [08/26/2015] done at [facility] 3Admin Note: VIM 03/17/12 4Admin Note: VIM 04/10/11 5Admin Note: VIS GIVEN 04/10/13 6Admin Note: vis given dated 06/21/09 7Admin Note: VIM 08/03/08 Medications albuterol CFC free 90 mcg/inh inhalation aerosol 1, puffs, Inhalation, 4 times a day, PRN, # 18 Gm, Refills 0, Tot. Refills 0, Maintenance, 12/02/2009:56:00 EDT, Aerosol, Route to Pharmacy Electronically, [id number], [facility]/pharmacy #[id number], 180.3, cm, 11/12/19 15:07:00 [...] 1 Refills, Maintenance, 11/12/19 10:02:00 EST, Gel, [facility]/pharmacy #[id number], 180.3, cm, 11/12/19 8:43:00 EST, [...] Maintenance, 07/02/16 16:06:12, Route to Pharmacy Electronically, [id number], [facility] #36 Start Date: [...] 5 Refills, Maintenance, 10/22/19 10:55:00 EST, Tablet, [facility]/pharmacy #[id number], 180.3, cm, 10/22/19 10:14:00 EST, Height, 118.5, kg, 05/12/19 10:33:00 EDT, Dry Weight Start Date: 10/22/19 Status: Ordered ibuprofen 800 mg oral tablet 800 mg, 1, tablet, By Mouth, Every 8 hours, PRN, # 90 tablet, Refills 0, Tot. Refills 0, Maintenance, as needed for pain, 04/10/19 17:13:55 EDT, Route to Pharmacy Electronically, [id number], [facility] #36 Start Date: [...] 5 Refills, Maintenance, 01/12/20 14:27:00 EDT, [facility], 180.3, cm, 01/12/20 13:41:00 EDT, Height, 120.7, kg, 11/03/19 13:31:00EST, Dry Weight Start Date: 01/12/20 Status: Ordered Lantus Solostar Pen 100 units/mL subcutaneous solution = 60 units, Subcutaneous Injection, 2 times a day, # 15 mL, 5 Refills, Maintenance, 01/19/20 15:07:00 EDT, Solution, [facility]/pharmacy #2339, 180.3, cm, 01/19/20 14:07:00 EDT, [...] 01/20/18 13:36:03 EDT, Route to Pharmacy Electronically, [id number], [facility] #[facility] Start Date: 01/20/18 Stop Date: 01/15/19 Status: Ordered Mavyret 100 mg-40 mg oral tablet 3 tablet, By Mouth, Daily, x 8 weeks, # 84 tablet, 1 Refills, Maintenance, 02/05/20 14:18:00 EDT, Tablet, [facility], 3 tablet By Mouth Daily,Instr:x [...] 11/12/19 15:56:00 EST, Route to Pharmacy Electronically, [facility]/pharmacy #[id number], 180.3, cm, 11/12/19 15:07:00 EST, Height, [...] Weight Start Date: 08/27/19 Status: Ordered Pen Nicholls, 29 G x 12.7 mm BD Ultra [...]
--- OUTSIDE RECORDS SUMMARY | 2023-10-18 20:36 | XMS_ITS | Continuity of Care Document ---
Author Name Unknown Organization [facility] Address [address] [place] [id number]- Care Team Providers Care Broth Mixer Name Role Phone Efra Mejia MD Primary Care Physician Encounter [facility] Date(s): 01/15/20 - 05/14/20 [facility] [address] [place] [address]- [facility] Attending Physician: Hasmukh Piña MD Admitting Physician: [...] 1Result Comment: [07/31/2018] [facility]# [id number] 2Result Comment: [08/26/2015] done at [facility] 3Admin Note: VIM 03/17/12 4Admin Note: VIM 04/10/11 5Admin Note: VIS GIVEN 04/10/13 6Admin Note: vis given dated 06/21/09 7Admin Note: VIM 08/03/08 Medications albuterol CFC free 90 mcg/inh inhalation aerosol 1, puffs, Inhalation, 4 times a day, PRN, # 18 Gm, Refills 0, Tot. Refills 0, Maintenance, 12/02/2009:56:00 EDT, Aerosol, Route to Pharmacy Electronically, [id number], [facility]/pharmacy #[id number], 180.3, cm, 11/12/19 15:07:00 EST, [...] 1 Refills, Maintenance, 11/12/19 10:02:00 EST, Gel, [facility]/pharmacy #[id number], 180.3, cm, 11/12/19 8:43:00 EST, [...] Maintenance, 07/02/16 16:06:12, Route to Pharmacy Electronically, [id number], [facility] Start Date: [...] 04/10/19 17:13:55 EDT, Route to Pharmacy Electronically, [id number], [facility] #36 Start Date: 04/10/19 Stop Date: [...] 5 Refills, Maintenance, 01/19/20 15:07:00 EDT, Solution, [facility]/pharmacy #[id number], 180.3, cm, 01/19/20 14:07:00 EDT, [...] 01/20/18 13:36:03 EDT, Route to Pharmacy Electronically, [id number], [facility] #36 Start Date: 01/20/18 Stop Date: 01/15/19 Status: Ordered Mavyret By Mouth, Daily, 0 Refills, Maintenance, 05/04/20 11:57:00 EDT Start Date: 05/04/20 Status: Ordered Mavyret 100 mg-40 mg oral tablet 3 tablet, By Mouth, Daily, x 8 weeks, # 84 tablet, 1 Refills, Maintenance, 02/05/20 14:18:00 EDT, Tablet, [facility], 3 tablet By Mouth [...] Weight Start Date: 08/27/19 Status: Ordered Pen [place], 29 G x 12.7 mm BD Ultra [...]
--- OUTSIDE RECORDS SUMMARY | 2023-10-18 20:36 | XMS_ITS | Continuity of Care Document ---
Author Name Unknown Organization [facility] Address [address] [place] [address]- Care Team Providers Care Electro Optics Engineer Name Role Phone Efra Mejia MD Primary Care Physician Encounter [facility] Date(s): 04/28/20 - 05/28/20 [facility] [address] [place] [address]- [facility] Allergies, Adverse Reactions, Alerts Substance [...] acel(Tdap) 7 03/05/11 Given 1Result Comment: [07/31/2018] [facility]# [id number] 2Result Comment: [08/26/2015] done at [facility] 3Admin Note: VIM 03/17/12 4Admin Note: VIM 04/10/11 5Admin Note: VIS GIVEN 04/10/13 6Admin Note: vis given dated 06/21/09 7Admin Note: VIM 08/03/08 Medications albuterol CFC free 90 mcg/inh inhalation aerosol 1, puffs, Inhalation, 4 times a day, PRN, # 18 Gm, Refills 0, Tot. Refills 0, Maintenance, 12/02/2009:56:00 EDT, Aerosol, Route to Pharmacy Electronically, [id number], [facility]/pharmacy #[id number], 180.3, cm, 11/12/19 15:07:00 EST, [...] 1 Refills, Maintenance, 11/12/19 10:02:00 EST, Gel, [facility]/pharmacy #[id number], 180.3, cm, 11/12/19 8:43:00 EST, [...] Maintenance, 07/02/16 16:06:12, Route to Pharmacy Electronically, [id number], [facility] Start Date: [...] 5 Refills, Maintenance, 10/22/19 10:55:00 EST, Tablet, [facility]/pharmacy #2339, 180.3, cm, 10/22/19 10:14:00 EST, Height, 118.5, kg, 05/12/19 10:33:00 EDT, Dry Weight Start Date: 10/22/19 Status: Ordered ibuprofen 800 mg oral tablet 800 mg, 1, tablet, By Mouth, Every 8 hours, PRN, # 90 tablet, Refills 0, Tot. Refills 0, Maintenance, as needed for pain, 04/10/19 17:13:55 EDT, Route to Pharmacy Electronically, [id number], [facility] #[facility] Start Date: [...] 05/29/20 17:49:00 EDT, 05/26/20 17:49:00 EDT, Syrup, [facility]/pharmacy #[id number], 60 mL By Mouth Daily,x3days,PRN:as needed for constipation, 180.3, cm, ... Start Date: 05/26/20 Stop Date: 05/29/20 Status: Ordered Lantus Solostar Pen 100 units/mL subcutaneous solution = 60 units, Subcutaneous Injection, 2 times a day, # 15 mL, 5 Refills, Maintenance, 01/19/20 15:07:00 EDT, Solution, [facility]/pharmacy #[id number], 180.3, cm, 01/19/20 14:07:00 EDT, [...] 01/20/18 13:36:03 EDT, Route to Pharmacy Electronically, [id number], [facility] #[facility] Start Date: 01/20/18 Stop Date: 01/15/19 Status: Ordered Mavyret By Mouth, Daily, 0 Refills, Maintenance, 05/04/20 11:57:00 EDT Start Date: 05/04/20 Status: Ordered Mavyret 100 mg-40 mg oral tablet 3 tablet, By Mouth, Daily, x 8 weeks, # 84 tablet, 1 Refills, Maintenance, 02/05/20 14:18:00 EDT, Tablet, [facility], 3 tablet By Mouth Daily,Instr:x [...] 5 Refills, Maintenance, 05/26/20 17:50:00 EDT, ECCapsule, [facility]/pharmacy #[id number], 180.3, cm, 05/06/20 16:07:00 EDT, Height, 120.7, kg, 11/03/19 13:31:00EST, Dry Weight Start Date: 05/26/20 Status: Ordered Pen Raw[place], 29 G x 12.7 mm BD Ultra [...]
--- OUTSIDE RECORDS SUMMARY | 2023-10-18 20:36 | XMS_ITS | Continuity of Care Document ---
Author Name Unknown Organization [facility] Address [address] [place] [address]- Care Team Providers Care Computer Technical Specialist Name Role Phone Roberto CH, Efra Miramontes Primary Care Physician Encounter [facility] Date(s): 06/12/22 - 07/12/22 [facility] [address] [place] [address]- Attending Physician: Bobby Sandoval Admitting Physician: AdmBobby [...] vaccine 8 04/01/12 Given 1Result Comment: [facility]#[id number] 2Result Comment: [07/31/2018] [facility]# [id number] 3Result Comment: [08/26/2015] [facility] 4Admin Note: VIM 03/17/12 5Admin Note: VIM 04/10/11 6Admin Note: VIM 08/03/08 7Admin Note: VIS GIVEN 04/10/13 8Admin Note: vis given dated 06/21/09 Medications ARIPiprazole 5 mg oral tablet 5 mg, 1, tablet, By Mouth, Daily, # 90 tablet, Refills 1, Tot. Refills 1, Maintenance, 06/05/22 10:07:00 EDT, Route to Pharmacy Electronically, [facility]/pharmacy #[id number], Partial fill upon patient request if the prescription is for a schedule II opioid drug.... Start Date: 06/05/22 Stop Date: 12/02/22 Status: Ordered citalopram 40 mg oral tablet 40 mg, 1, tablet, By Mouth, Daily, Take with food., # 90 tablet, Refills 1, Tot. Refills 1, Maintenance, 06/05/22 10:06:00 EDT, Route to Pharmacy Electronically, [facility]/pharmacy #[id number], 181.5, cm, 05/08/22 8:39:00 EDT, Height, 105, kg, 09/26/21 3:23:00 ES... Start Date: 06/05/22 Stop Date: 12/02/22 Status: Ordered donepezil 10 mg oral tablet 10 mg, 1, tablet, By Mouth, Daily at bedtime, # 90 tablet, Refills 1, Tot. Refills 1, Maintenance, 05/08/22 9:47:00 EDT, [facility] Electronically, [facility] [...] AM, 0 Refills, Maintenance, 07/14/21 14:22:00 EDT, [place], Partial fill upon patient request if the [...] 03/22/22 15:36:00 EDT, Route to Pharmacy Electronically, [facility]/pharmacy #[id number], Partial fill upon patient request if the prescription is for a schedule II... Start Date: 03/22/22 Status: Ordered Iodosorb 0.9% topical gel See Instructions, Continue wound care with iodosorb gel and 2x2 dressing daily to small wound Betadine pain to incision, # 1 each, 0 Refills, Maintenance, 09/28/21 18:43:00 EST, [facility]/pharmacy #[id number], Partial fill upon patient request if the prescripti... Start Date: 09/28/21 Status: Ordered levothyroxine 0.112 mg oral tablet 2 tablet = 224 mcg, By Mouth, Daily, # 60 tablet, 2 Refills, Maintenance, 03/22/22 13:10:00 EDT, Tablet, [facility]/pharmacy #[id number], 181.5, cm, 09/28/21 12:39:00 EST, Height, 105, kg, 09/26/21 3:23:00 EST, Dry Weight Start Date: 03/22/22 Stop Date: 06/20/22 Status: Ordered lidocaine-prilocaine 2.5%-2.5% topical cream = 15 Gm, Topically, Once, Apply small amount to area of injection site one hour prior to injection,# 15 Gm, 0 Refills, Soft Stop, 06/05/22 10:10:00 EDT, [facility]/pharmacy #[id number], Partial fill upon patientrequest if [...] Start Date: 07/13/21 Status: Ordered nystatin topical 678129 u/gm powder See Instructions, apply to stump [...] 2 Refills, Maintenance, 03/22/22 13:10:00 EDT, ECCapsule, [facility]/pharmacy #0693, 181.5, cm, 09/28/21 12:39:00 EST, Height, 105, kg, 09/26/21 3:23:00 EST, Dry Weight Start Date: 03/22/22 Status: Ordered prazosin 2 mg oral capsule 1 capsule = 2 mg, By Mouth, Daily at bedtime, # 90 capsule, 1 Refills, Maintenance, 06/05/22 10:07:00 EDT, Capsule, [facility]/pharmacy #0693, Partial fill upon patient request if the prescription is for a schedule II opioid drug., 181.5, cm, 05/08/22 8:39:0... Start Date: 06/05/22 Stop Date: 12/02/22 Status: Ordered ramelteon 8 mg oral tablet 1 tablet = 8 mg, By Mouth, Daily at bedtime, # 90 tablet, 1 Refills, Maintenance, 06/05/22 10:07:00EDT, Tablet, [facility]/pharmacy #0693, Partial fill upon patient request if the prescription is for a schedule II opioid drug., 181.5, cm, 05/08/22 8:39:00 E... Start Date: 06/05/22 Stop Date: 12/02/22 Status: Ordered Sublocade 300 mg/1.5 mL subcutaneous solution, extended release = 300 mg, Subcutaneous Infusion, Every 28 days, [id number], # 1 kit, 0 Refills, Maintenance, 06/05/22 10:09:00 EDT, [facility]/pharmacy #0693, Partial fill upon patient request if the prescription is for a schedule II opioid drug., 181.5, cm, 05/08/22 8:39:00... Start Date: 06/05/22 Stop Date: 06/06/22 Status: Ordered Suboxone 8 mg-2 mg Sublingual Film See Instructions, 1.5 films sublingual in AM, 1 film sublingual in PM dissolve under the tongue, # 75 film, 0 Refills, Maintenance, 07/06/22 11:40:00 EDT, [facility]/pharmacy #0693, Partial fill upon patient request if the prescription is for a schedule II... Start Date: 07/06/22 Status: Ordered tamsulosin 0.4 mg oral capsule 0.4 mg, 1, capsule, By Mouth, Daily, # 90 capsule, Refills 3, Tot. Refills 3, Maintenance, 07/06/2111:55:00 EDT, Route to Pharmacy Electronically, [facility]/pharmacy #[id number], Partial fill upon patient request if the prescription is for a schedule II opioid d... Start Date: 07/06/21 Status: Ordered Trulicity Pen 0.75 mg/0.5 mL subcutaneous solution 0.5 mL = 0.75 mg, Subcutaneous Injection, Every week, rotate injection sites, # 2 mL, 5 Refills, Maintenance, 10/05/21 11:20:00 EST, Solution, [facility] #[id number], Partial fill upon patient request ifthe prescription is for a schedule II opioid drug.,... Start Date: 10/05/21 Status: Ordered Problem List Condition Confirmation Course [...] brenden y. Sex Patient Care team information Personnel Name: Roberto CH, Efra Miramontes Address: Address: [address] [place] [id number]
--- OUTSIDE RECORDS SUMMARY | 2023-10-18 20:36 | XMS_ITS | Continuity of Care Document ---
Author Name Unknown Organization [facility] Address [address] [place] [address]- Care Team Providers Care Bureau Chief Name Role Phone Roberto CH, Efra Miramontes Primary Care Physician Encounter [facility] Date(s): 08/22/21 - 08/29/21 [facility] [address] [place] [address]- Attending Physician: Anand Miller MD Admitting Physician: Anand Miller MD Allergies, Adverse Reactions, Alerts Substance Reaction [...] 23-valent vaccine 8 04/01/12 Given 1Result Comment: [facility] [place]#[id number] 2Result Comment: [07/31/2018] [facility] [place] [id number] 3Result Comment: [08/26/2015] done at [facility] 4Admin Note: VIM 03/17/12 5Admin Note: VIM 04/10/11 6Admin Note: VIM 08/03/08 7Admin Note: VIS GIVEN 04/10/13 8Admin Note: vis given dated 06/21/09 Medications donepezil 5 mg oral tablet 5 mg, 1, tablet, By Mouth, Daily, # 30 tablet, Refills 5, Tot. Refills 5, Maintenance, 06/02/21 14:20:00 EDT, Route to Pharmacy Electronically, [facility]/pharmacy #[id number], Partial fill upon patient request if the [...] AM, 0 Refills, Maintenance, 07/14/21 14:22:00 EDT, [place], Partial fill upon patient request if the [...] 5 Refills, Maintenance, 10/27/20 10:22:00 EST, Tablet, [facility]/pharmacy #[id number], 183, cm, 10/27/20 8:41:00 [...] Start Date: 07/13/21 Status: Ordered nystatin topical 434286 u/gm powder See Instructions, apply to stump 3 x day, # 120 Gm, 5 Refills, Maintenance, 07/06/21 12:35:00 EDT, Powder, [facility]/pharmacy #[id number], Partial fill upon patient request if the prescription is for a schedule II opioid drug., apply to stump 3 x day, 180, cm,... Start Date: 07/06/21 Status: Ordered omeprazole 20 mg oral enteric coated capsule 1 capsule = 20 mg, By Mouth, Daily, # 30 capsule, 5 Refills, Maintenance, 10/27/20 10:22:00 EST, ECCapsule, [facility]/pharmacy #[id number], 183, cm, 10/27/20 8:41:00 [...] Maintenance, 07/06/2111:55:00 EDT, Route to Pharmacy Electronically, [facility]/pharmacy #[id number], Partial fill upon patient request if the prescription is for a schedule II opioid d... Start Date: 07/06/21 Status: Ordered Trulicity Pen 0.75 mg/0.5 mL subcutaneous solution 0.5 mL = 0.75 mg, Subcutaneous Injection, Every week, rotate injection sites, # 2 mL, 0 Refills, Maintenance, 07/06/21 12:35:00 EDT, Solution, [facility]/pharmacy #[id number], Partial fill upon patient [...] recent to oldest [Reference Range]: 1 Height 180 cm (08/22/21 1:07 PM) Weight 94.3 kg (08/22/21 1:07 PM) Oxygen Saturation [94-100 %] 97 % (08/22/21 1:07 PM) Pulse Rate [55-90 bpm] 89 bpm (08/22/21 1:07 PM) Body Mass Index [18.5-24.99] 29.1 *H* (08/22/21 1:07 PM) Blood Pressure [90-138/55-84 mm Hg] 122/ 64mm Hg (08/22/21 1:07 PM) Mode of Delivery (Oxygen) Room air (08/22/21 1:07 PM) Blood pressure sites Arm, left (08/22/21 1:07 PM) Weight Obtained Via Patient/family state d (08/22/21 1:07 PM) Social History Social History Type Response Tobacco Other: 3 cigars brenden y. Sex
--- OUTSIDE RECORDS SUMMARY | 2023-10-18 20:36 | XMS_ITS | Continuity of Care Document ---
Author Name Unknown Organization [facility] Address [address] [place] [address]- Care Team Providers Care Ophthalmic Aide Name Role Phone Efra Mejia MD Primary Care Physician Encounter [facility] Date(s): 10/22/19 - 10/22/[address] [address]- [facility] Attending Physician: Efra Mejia MD Allergies, [...] acel(Tdap) 7 03/05/11 Given 1Result Comment: [07/31/2018] [facility]# [id number] 2Result Comment: [08/26/2015] [facility] [...] Maintenance, 07/02/16 16:06:12, Route to Pharmacy Electronically, [id number], [facility] Start Date: [...] 5 Refills, Maintenance, 10/22/19 10:55:00 EST, Tablet, [facility]/pharmacy #[id number], 180.3, cm, 10/22/19 10:14:00 EST, Height, 118.5, kg, 05/12/19 10:33:00 EDT, Dry Weight Start Date: 10/22/19 Status: Ordered ibuprofen 800 mg oral tablet 800 mg, 1, tablet, By Mouth, Every 8 hours, PRN, # 90 tablet, Refills 0, Tot. Refills 0, Maintenance, as needed for pain, 04/10/19 17:13:55 EDT, Route to Pharmacy Electronically, [id number], [facility] Start Date: [...] 1 Refills, Maintenance, 10/08/19 16:20:00 EST, Solution, [facility]/pharmacy #[id number], 180, cm, 10/08/19 15:20:00 EST, Height, [...] 01/20/18 13:36:03 EDT, Route to Pharmacy Electronically, [id number], [facility] Start Date: [...] Weight Start Date: 08/27/19 Status: Ordered Pen [place], 29 G x 12.7 mm BD Ultra [...]
--- OUTSIDE RECORDS SUMMARY | 2023-10-18 20:36 | XMS_ITS | Continuity of Care Document ---
Author Name Unknown Organization [facility] Address [address] [place] [address]- Care Team Providers Care Pediatric Dietician Name Role Phone Roberto CH, Efra Miramontes Primary Care Physician Encounter [facility] Date(s): 10/06/21 - 11/05/21 [facility] [address] [place], [place] [address] Allergies, Adverse Reactions, Alerts No Known Allergies [...] 23-valent vaccine 8 04/01/12 Given 1Result Comment: [facility]#[id number] 2Result Comment: [07/31/2018] [facility]# [id number] 3Result Comment: [08/26/2015] done at [facility] 4Admin Note: VIM 03/17/12 5Admin Note: VIM 04/10/11 6Admin Note: VIM 08/03/08 7Admin Note: VIS GIVEN 04/10/13 8Admin Note: vis given dated 06/21/09 Medications donepezil 5 mg oral tablet 5 mg, 1, tablet, By Mouth, Daily, # 30 tablet, Refills 5, Tot. Refills 5, Maintenance, 06/02/21 14:20:00 EDT, Route to Pharmacy Electronically, [facility]/pharmacy #[id number], Partial fill upon patient request if [...] AM, 0 Refills, Maintenance, 07/14/21 14:22:00 EDT, [place], Partial fill upon patient request if the [...] 11:39:00 EST, Route to Pharmacy Electronically, [facility]/pharmacy #[id number], Partial fill upon patient request if [...] Start Date: 07/13/21 Status: Ordered nystatin topical 683391 u/gm powder See Instructions, apply to stump 3 x day, # 120 Gm, 5 Refills, Maintenance, 07/06/21 12:35:00 EDT, Powder, [facility]/pharmacy #[id number], Partial fill upon patient request if the prescription is for a schedule II opioid drug., apply to stump 3 x day, 180, cm,... Start Date: 07/06/21 Status: Ordered omeprazole 20 mg oral enteric coated capsule 1 capsule = 20 mg, By Mouth, Daily, # 30 capsule, 5 Refills, Maintenance, 10/27/20 10:22:00 EST, ECCapsule, [facility]/pharmacy #[id number], 183, cm, 10/27/20 8:41:00 EST, Height, 119, kg, 09/23/20 17:06:00 EST,Dry Weight Start Date: 10/27/20 Status: Ordered tamsulosin 0.4 mg oral capsule 0.4 mg, 1, capsule, By Mouth, Daily, # 90 capsule, Refills 3, Tot. Refills 3, Maintenance, 07/06/2111:55:00 EDT, Route to Pharmacy Electronically, [facility]/pharmacy #[id number], Partial fill upon patient request if the prescription is for a schedule II opioid d... Start Date: 07/06/21 Status: Ordered Trulicity Pen 0.75 mg/0.5 mL subcutaneous solution 0.5 mL = 0.75 mg, Subcutaneous Injection, Every week, rotate injection sites, # 2 mL, 5 Refills, Maintenance, 10/05/21 11:20:00 EST, Solution, [facility]/pharmacy #[id number], Partial fill upon patient request ifthe [...]
--- OUTSIDE RECORDS SUMMARY | 2023-10-18 20:37 | XMS_ITS | Continuity of Care Document ---
Author Name Unknown Organization [facility] Address [address] [place] [address]- Care Team Providers Care Clutch Assembler Name Role Phone Roberto CH, Efra Miramontes Primary Care Physician [place] [facility] [place] 12/13/20 - 01/12/21 [facility] [address] [place] [address]- Allergies, Adverse Reactions, Alerts Substance Reaction Severity [...] Given 1Result Comment: [07/31/2018] [facility]# [id number] 2Result Comment: [08/26/2015] done at [facility] 3Admin Note: VIM 03/17/12 4Admin Note: VIM 04/10/11 5Admin Note: VIS GIVEN 04/10/13 6Admin Note: vis given dated 06/21/09 7Admin Note: VIM 08/03/08 Medications albuterol CFC free 90 mcg/inh inhalation aerosol 1, puffs, Inhalation, 4 times a day, PRN, # 18 Gm, Refills 0, Tot. Refills 0, Maintenance, 12/02/2009:56:00 EDT, Aerosol, Route to Pharmacy Electronically, [id number], [facility]/pharmacy #[id number], 180.3, cm, 11/12/19 [...] Gm, 5 Refills, Maintenance, 12/15/20 12:56:00 EDT, [place], [facility]/pharmacy #[id number], Partial fill upon patient request [...] Maintenance, 07/02/16 16:06:12, Route to Pharmacy Electronically, [id number], [facility] Start Date: [...] 10/27/20 10:24:00 EST, Route to Pharmacy Electronically, [facility]/pharmacy #[id number], Partial fill upon patient request [...] 5 Refills, Maintenance, 10/27/20 10:22:00 EST, Solution, [facility]/pharmacy #[id number], 183, cm, 10/27/20 8:41:00 EST, Height, 119, kg, 09/23/20 17:06:00 EST, Dry Weight Start Date: 10/27/20 Status: Ordered levothyroxine 0.112 mg oral tablet 2 tablet = 224 mcg, By Mouth, Daily, # 60 tablet, 5 Refills, Maintenance, 10/27/20 10:22:00 EST, Tablet, [facility]/pharmacy #[id number], 183, cm, 10/27/20 8:41:00 EST, Height, 119, kg, 09/23/20 17:06:00 EST, DryWeight Start Date: 10/27/20 Stop Date: 04/25/21 Status: Ordered lisinopril 20 mg oral tablet 40 mg, 2, tablet, By Mouth, Daily, # 60 tablet, Refills 5, Tot. Refills 5, Maintenance, 10/27/20 10:22:00 EST, Route to Pharmacy Electronically, [facility]/pharmacy #[id number], Partial fill upon patient request if the prescription is for a schedule II opioid drug... Start Date: 10/27/20 Status: Ordered Melatonin 5 mg oral tablet 1 tablet = 5 mg, By Mouth, Daily at bedtime, # 30 tablet, 5 Refills, Maintenance, 12/15/20 12:56:00EDT, Tablet, [facility]/pharmacy #[id number], Partial fill upon patient request if the prescription is for a schedule II opioid drug., 183, cm, 12/15/20 11:23:00 ED... Start Date: 12/15/20 Status: Ordered MiraLax oral powder for reconstitution = 17 Gm, By Mouth, Daily, dissolve in water before taking, # 527 Gm, 5 Refills, Maintenance, 10/27/20 10:23:00 EST, REC Powder, [facility]/pharmacy #[id number], 17 Gm By Mouth Daily,Instr:dissolve in water beforetaking, 183, cm, 10/27/20 8:41:00 EST, Height, 119,... Start Date: 10/27/20 Status: Ordered nystatin topical 110222 u/gm powder See Instructions, apply to stump daily, # 30 Gm, 5 Refills, Maintenance, 12/15/20 12:56:00 EDT, Powder, [facility]/pharmacy #[id number], Partial fill upon patient request if the prescription is for a schedule II opioid drug., apply to stump daily, 183, cm, ... Start Date: 12/15/20 Status: Ordered omeprazole 20 mg oral enteric coated capsule 1 capsule = 20 mg, By Mouth, Daily, # 30 capsule, 5 Refills, Maintenance, 10/27/20 10:22:00 EST, ECCapsule, [facility]/pharmacy #[id number], 183, cm, 10/27/20 8:41:00 EST, Height, 119, kg, 09/23/20 17:06:00 EST,Dry Weight Start Date: 10/27/20 Status: Ordered Pen [place], 29 G x 12.7 mm BD Ultra Fine See Instructions, # 1 box, Refills 3, Tot. Refills 3, Maintenance, use with NOvolog Pen injection twice daily, 06/18/19 9:42:43 EDT, Compound Start Date: 06/18/19 Status: Ordered tamsulosin 0.4 mg oral capsule 0.4 mg, 1, capsule, By Mouth, Daily, # 30 capsule, Refills 11, Tot. Refills 11, Maintenance, 12/15/20 12:56:00 EDT, Route to Pharmacy Electronically, [facility]/pharmacy #[id number], 183, cm, 12/15/20 11:23:00 EDT, Height, 119, kg, 09/23/20 17:06:00 EST, Dry Weight Start Date: 12/15/20 Status: Ordered Trulicity Pen 1.5 mg/0.5 mL subcutaneous solution 0.5 mL = 1.5 mg, Subcutaneous Injection, Every week, # 2.5 mL, 5 Refills, Maintenance, 12/15/20 12:38:00 EDT, Solution, [facility]/pharmacy #[id number], Partial fill upon patient request [...]
--- OUTSIDE RECORDS SUMMARY | 2023-10-18 20:37 | XMS_ITS | Continuity of Care Document ---
Author Name Unknown Organization [facility] Address [address] [place] [address]- Care Team Providers Care Applied Psychology Chair Name Role Phone Roberto CH, Efra Miramontes Primary Care Physician Encounter [facility] Date(s): 12/28/20 - 01/27/21 [facility] [address] [place] [address]- Allergies, Adverse Reactions, Alerts Substance Reaction Severity [...] acel(Tdap) 7 03/05/11 Given 1Result Comment: [07/31/2018] [facility]# [id number] 2Result Comment: [08/26/2015] done at [facility] 3Admin Note: VIM 03/17/12 4Admin Note: VIM 04/10/11 5Admin Note: VIS GIVEN 04/10/13 6Admin Note: vis given dated 06/21/09 7Admin Note: VIM 08/03/08 Medications albuterol CFC free 90 mcg/inh inhalation aerosol 1, puffs, Inhalation, 4 times a day, PRN, # 18 Gm, Refills 0, Tot. Refills 0, Maintenance, 12/02/2009:56:00 EDT, Aerosol, Route to Pharmacy Electronically, [id number], [facility]/pharmacy #[id number], 180.3, cm, 11/12/19 15:07:00 EST, He... [...] Gm, 5 Refills, Maintenance, 12/15/20 12:56:00 EDT, [place], [facility]/pharmacy #[id number], Partial fill upon patient request if [...] Maintenance, 07/02/16 16:06:12, Route to Pharmacy Electronically, [id number], [facility] Start Date: [...] Route to Pharmacy Electronically, [facility]/pharmacy #[id number], Partial fill upon patient request if [...] 10/27/20 10:22:00 EST, Solution, [facility]/pharmacy #[id number], 183, cm, 10/27/20 8:41:00 EST, Height, 119, kg, 09/23/20 17:06:00 EST, Dry Weight Start Date: 10/27/20 Status: Ordered levothyroxine 0.112 mg oral tablet 2 tablet = 224 mcg, By Mouth, Daily, # 60 tablet, 5 Refills, Maintenance, 10/27/20 10:22:00 EST, Tablet, [facility]/pharmacy #[id number], 183, cm, 10/27/20 8:41:00 EST, Height, 119, kg, 09/23/20 17:06:00 EST, DryWeight Start Date: 10/27/20 Stop Date: 04/25/21 Status: Ordered lisinopril 20 mg oral tablet 40 mg, 2, tablet, By Mouth, Daily, # 60 tablet, Refills 5, Tot. Refills 5, Maintenance, 10/27/20 10:22:00 EST, Route to Pharmacy Electronically, [facility]/pharmacy #[id number], Partial fill upon patient request if the prescription is for a schedule II opioid drug... Start Date: 10/27/20 Status: Ordered Melatonin 5 mg oral tablet 1 tablet = 5 mg, By Mouth, Daily at bedtime, # 30 tablet, 5 Refills, Maintenance, 12/15/20 12:56:00EDT, Tablet, [facility]/pharmacy #[id number], Partial fill upon patient request if the prescription is for a schedule II opioid drug., 183, cm, 12/15/20 11:23:00 ED... Start Date: 12/15/20 Status: Ordered MiraLax oral powder for reconstitution = 17 Gm, By Mouth, Daily, dissolve in water before taking, # 527 Gm, 5 Refills, Maintenance, 10/27/20 10:23:00 EST, REC Powder, [facility]/pharmacy #[id number], 17 Gm By Mouth Daily,Instr:dissolve in water beforetaking, 183, cm, 10/27/20 8:41:00 EST, Height, 119,... Start Date: 10/27/20 Status: Ordered nystatin topical 343361 u/gm powder See Instructions, apply to stump daily, # 30 Gm, 5 Refills, Maintenance, 12/15/20 12:56:00 EDT, Powder, [facility]/pharmacy #[id number], Partial fill upon patient request if the prescription is for a schedule II opioid drug., apply to stump daily, 183, cm, ... Start Date: 12/15/20 Status: Ordered omeprazole 20 mg oral enteric coated capsule 1 capsule = 20 mg, By Mouth, Daily, # 30 capsule, 5 Refills, Maintenance, 10/27/20 10:22:00 EST, ECCapsule, [facility]/pharmacy #[id number], 183, cm, 10/27/20 8:41:00 EST, Height, 119, kg, 09/23/20 17:06:00 EST,Dry Weight Start Date: 10/27/20 Status: Ordered Pen [place], 29 G x 12.7 mm BD Ultra [...] 12/15/20 12:56:00 EDT, Route to Pharmacy Electronically, [facility]/pharmacy #[id number], 183, cm, 12/15/20 11:23:00 EDT, Height, [...] 5 Refills, Maintenance, 12/15/20 12:38:00 EDT, Solution, [facility]/pharmacy #[id number], Partial fill upon patient request if [...] History Type Response Tobacco Other: 3 cigars brednen y. Sex Male
--- OUTSIDE RECORDS SUMMARY | 2023-10-18 20:37 | XMS_ITS | Continuity of Care Document ---
Author Name Unknown Organization [facility] Address [address] [place] [address]- Care Team Providers Care Binder Fixer Name Role Phone Efra Mejia MD Primary Care Physician [facility] Date(s): 03/31/20 - 04/30/20 [facility] [address] [place] [address]- [facility] Allergies, Adverse Reactions, Alerts Substance Reaction [...] acel(Tdap) 7 03/05/11 Given 1Result Comment: [07/31/2018] [facility]# [id number] 2Result Comment: [08/26/2015] done at [facility] 3Admin Note: VIM 03/17/12 4Admin Note: VIM 04/10/11 5Admin Note: VIS GIVEN 04/10/13 6Admin Note: vis given dated 06/21/09 7Admin Note: VIM 08/03/08 Medications albuterol CFC free 90 mcg/inh inhalation aerosol 1, puffs, Inhalation, 4 times a day, PRN, # 18 Gm, Refills 0, Tot. Refills 0, Maintenance, 12/02/2009:56:00 EDT, Aerosol, Route to Pharmacy Electronically, [id number], [facility]/pharmacy #[id number], 180.3, cm, 11/12/19 15:07:00 [...] 1 Refills, Maintenance, 11/12/19 10:02:00 EST, Gel, [facility]/pharmacy #2339, 180.3, cm, 11/12/19 8:43:00 EST, Height, [...] Maintenance, 07/02/16 16:06:12, Route to Pharmacy Electronically, [id number], [facility] Start Date: [...] 5 Refills, Maintenance, 10/22/19 10:55:00 EST, Tablet, [facility]/pharmacy #2339, 180.3, cm, 10/22/19 10:14:00 EST, Height, 118.5, kg, 05/12/19 10:33:00 EDT, Dry Weight Start Date: 10/22/19 Status: Ordered ibuprofen 800 mg oral tablet 800 mg, 1, tablet, By Mouth, Every 8 hours, PRN, # 90 tablet, Refills 0, Tot. Refills 0, Maintenance, as needed for pain, 04/10/19 17:13:55 EDT, Route to Pharmacy Electronically, [id number], [facility] Start Date: [...] 5 Refills, Maintenance, 01/12/20 14:27:00 EDT, Tablet, [facility]/pharmacy #2339, 180.3, cm, 01/12/20 13:41:00 EDT, Height, 120.7, kg, 11/03/19 13:31:00EST, Dry Weight Start Date: 01/12/20 Status: Ordered Lantus Solostar Pen 100 units/mL subcutaneous solution = 60 units, Subcutaneous Injection, 2 times a day, # 15 mL, 5 Refills, Maintenance, 01/19/20 15:07:00 EDT, Solution, [facility]/pharmacy #2339, 180.3, cm, 01/19/20 14:07:00 EDT, Height, [...] 01/20/18 13:36:03 EDT, Route to Pharmacy Electronically, [id number], [facility] Start Date: 01/20/18 Stop Date: 01/15/19 Status: Ordered Mavyret 100 mg-40 mg oral tablet 3 tablet, By Mouth, Daily, x 8 weeks, # 84 tablet, 1 Refills, Maintenance, 02/05/20 14:18:00 EDT, Tablet, [facility], 3 tablet By Mouth [...] 11/12/19 15:56:00 EST, Route to Pharmacy Electronically, [facility]/pharmacy #[id number], 180.3, cm, 11/12/19 15:07:00 EST, Height, [...] Weight Start Date: 08/27/19 Status: Ordered Pen [place], 29 G x 12.7 mm BD Ultra [...]
--- OUTSIDE RECORDS SUMMARY | 2023-10-18 20:37 | XMS_ITS | Continuity of Care Document ---
Author Name Unknown Organization [facility] Address [address] [place] [address]- Care Team Providers Care Ladies Attendant Name Role Phone Roberto CH, Efra Miramontes Primary Care Physician [phone] [facility]counter [facility] Date[facility]s): 12/03/19 - 12/13/19 [facility] [address] [place] [address]- [facility] Attending Physician: Bobby Sandoval Admitting Physician: [...] acel(Tdap) 7 03/05/11 Given 1Result Comment: [07/31/2018] [facility]# [id number] 2Result Comment: [08/26/2015] done at [facility] 3Admin Note: VIM 03/17/12 4Admin Note: VIM 04/10/11 5Admin Note: VIS GIVEN 04/10/13 6Admin Note: vis given dated 06/21/09 7Admin Note: VIM 08/03/08 Medications albuterol CFC free 90 mcg/inh inhalation aerosol 1, puffs, Inhalation, 4 times a day, PRN, # 18 Gm, Refills 0, Tot. Refills 0, Maintenance, 12/02/2009:56:00 EDT, Aerosol, Route to Pharmacy Electronically, [id number], [facility]/pharmacy #2339, 180.3, cm, 11/12/19 15:07:00 [...] 1 Refills, Maintenance, 11/12/19 10:02:00 EST, Gel, [facility]/pharmacy #2339, 180.3, cm, 11/12/19 8:43:00 [...] Maintenance, 07/02/16 16:06:12, Route to Pharmacy Electronically, [id number], [facility] Start Date: 07/02/16 Stop Date: [...] 5 Refills, Maintenance, 10/22/19 10:55:00 EST, Tablet, [facility]/pharmacy #2339, 180.3, cm, 10/22/19 10:14:00 EST, Height, 118.5, kg, 05/12/19 10:33:00 EDT, Dry Weight Start Date: 10/22/19 Status: Ordered ibuprofen 800 mg oral tablet 800 mg, 1, tablet, By Mouth, Every 8 hours, PRN, # 90 tablet, Refills 0, Tot. Refills 0, Maintenance, as needed for pain, 04/10/19 17:13:55 EDT, Route to Pharmacy Electronically, [id number], [facility] Start Date: 04/10/19 Stop Date: [...] 5 Refills, Maintenance, 12/03/19 10:59:00 EDT, Solution, [facility]/pharmacy #2339, 180.3, cm, 11/12/19 15:07:00 [...] 01/20/18 13:36:03 EDT, Route to Pharmacy Electronically, [id number], [facility] Start Date: [...] 11/12/19 15:56:00 EST, Route to Pharmacy Electronically, [facility]/pharmacy #2339, 180.3, cm, 11/12/19 15:07:00 [...] Weight Start Date: 08/27/19 Status: Ordered Pen [place], 29 G x 12.7 mm BD Ultra [...]
--- OUTSIDE RECORDS SUMMARY | 2023-10-18 20:37 | XMS_ITS | Continuity of Care Document ---
Author Name Unknown Organization [facility] Address [address] [place] [id number]- Care Team Providers Care Tipping Machine Operator Name Role Phone Roberto CH, Efra Miramontes Primary Care Physician Encounter [facility] [facility] Date(s): 07/25/23 - 08/29/23 [facility] [address] [place] [id number] Attending Physician: Juve Lopez MD Admitting Physician: Juve Lopez MD Allergies, Adverse Reactions, Alerts No Known [...] inactivated 5 08/16/11 Gi raheem SARS-CoV-2 mRNA (kaeufxb-sxpa-rdyym) vax 04/27/22 Recorded zoster vaccine, inactivated 06/11/21 Recorded SARS-CoV-2 (COVID-19) mRNA BNT-162b2 vac 06/11/21 Recorded SARS-CoV-2 (COVID-19) mRNA BNT-162b2 vac 12/04/20 Recorded SARS-CoV-2 (COVID-19) mRNA BNT-162b2 vac 11/13/20 Recorded tetanus/diphtheria/pertussis, acel(Tdap) 05/07/21 Given tetanus/diphtheria/pertussis, acel(Tdap) 6 03/05/11 Given Influenza Virus Vaccine (oldterm) 06/08/19 Recorde d Fluarix (oldterm) 7 08/19/13 Given pneumococcal 23-valent vaccine 8 04/01/12 Given 1Result Comment: [facility]#[id number] 2Result Comment: [07/31/2018] [facility]# [id number] 3Result Comment: [08/26/2015] done at [facility] 4Admin Note: VIM 03/17/12 5Admin Note: [...] 10:14:00 EDT, Route to Pharmacy Electronically, [facility]/pharmacy #[id number], 181.5, cm, 06/06/23 16:27:00 EDT, Height, 103, kg, 10/26/22 11:39:00... Start Date: 06/25/23 Stop Date: 12/22/23 Status: Ordered donepezil 10 mg oral tablet 1, tablet, By Mouth, Daily at bedtime, # 90 tablet, Refills 2, Maintenance, 07/26/23 16:19:00 EST, Route to Pharmacy Electronically, [id number], 181.5, cm, 07/11/23 11:00:00 EDT, Height, 103, kg, 10/26/22 11:39:00 EST, Dry Weight Start Date: 07/26/23 Status: Ordered famotidine 40 mg oral tablet 1 tablet = 40 mg, By Mouth, Daily at bedtime, # 30 tablet, 2 Refills, Maintenance, 08/21/23 14:50:00 EST, Tablet, [facility]/pharmacy #[id number], Partial fill [...] Gm, 0 Refills, Maintenance, 07/11/23 13:02:00 EDT, [place], [facility]/pharmacy #[id number], Partial fill upon patient request if the prescription is for a schedule II opioid drug., 2 sprays Nares, Both Daily, 181.5, cm, 07/11/23 1... Start Date: 07/11/23 Status: Ordered fluticasone 50 mcg/inh nasal spray 2 sprays, Nares, Both, Daily in AM, 0 Refills, Maintenance, 07/14/21 14:22:00 EDT, [place], Partial fill upon patient request if the [...] 03/27/23 17:30:00 EDT, [id number] override needed for lost prescription, thanks., 181.5, cm, 03/07/23 10:11:0... Start Date: 03/27/23 Status: Ordered levothyroxine 0.2 mg oral tablet 1 tablet = 200 mcg, By Mouth, Daily, # 30 tablet, 5 Refills, Maintenance, 07/14/23 18:02:00 EDT, Tablet, [facility]/pharmacy #[id number], dose reduction, 181.5, cm, 07/11/23 [...] Start Date: 07/13/21 Status: Ordered nystatin topical 082798 u/gm powder See Instructions, apply to stump 3 x day, # 120 Gm, 5 Refills, Maintenance, 04/23/23 15:43:00 EDT, Powder, [facility]/pharmacy #[id number], Partial fill upon patient request if the prescription is for a schedule II opioid drug., apply to stump 3 x day, 181.5, cm... Start Date: 04/23/23 Status: Ordered nystatin topical 479866 u/gm powder See Instructions, apply to stump [...] film, 0 Refills, Maintenance, 06/25/23 10:13:00 EDT, [id number], [id number], 1.5 films sublingual in AM, 1 film sublingual in PM, 181.5, cm, 06/06/23 16:27:00 EDT, [place]... Start Date: 06/25/23 Status: Ordered tamsulosin 0.4 mg oral capsule 0.4 mg, 1, capsule, By Mouth, Daily, # 90 capsule, Refills 3, Tot. Refills 3, Maintenance, 12/20/2315:00:00 EDT, Route to Pharmacy Electronically, [facility]/pharmacy #[id number], Partial fill upon patient request if the [...] Team Personnel Name: Cayla Herrera RN Position: [facility] ED RN W/OE and Tasks Member Role: Primary Care Nurse Name: Alka Lee RN Position: [facility] SN RN Member Role: Primary Care Nurse Name: Jaleel Lo RN Position: [facility] RN Member Role: Primary Care Nurse Name: Ivy Smith RN Position: [facility] RN Member Role: Primary Care Nurse Name: Efra Mejia MD Position: [facility] Physician - Primary Care Member Role: PCP Address: Address: [address] [place] [id number] Name: Devorah Johnson RN Position: [facility] SN RN Member Role: Primary Care Nurse Name: Dustin Chavez RN Position: [facility] RN Member Role: Primary Care Nurse Name: Litzy Weinberg RN Position: [facility] RN Member Role: Primary Care Nurse Name: Melanie Garay Position: [facility] RN Member Role: Primary Care Nurse Name: Yoselyn Patrick RN Position: [facility] RN Member Role: Primary Care Nurse Name: Michelle Akbar MA Position: [facility] RN Member Role: Primary Care Nurse Name: Saundra Gonzalez Position: [facility] RN Member Role: Primary Care Nurse Name: Sofía Moreno RN Position: [facility] RN Member Role: Primary Care Nurse Name: Sary Tong RN Position: [facility] RN Member Role: Primary Care Nurse Name: Danielito Woo RN Position: [facility] Hospital Manager Child Member Role: Primary Care Nurse Care Team Related Persons Name: TINY STEPHENS Address: [address] [place] [address] Name: FERNIE CUMMINS Address: [address] [place] [address] Name: TINY CUMMINS Address: home [address] [place] [id number]
--- OUTSIDE RECORDS SUMMARY | 2023-10-18 20:37 | XMS_ITS | Continuity of Care Document ---
Author Name Unknown Organization [facility] Address [address] [place] [address]- Care Team Providers Care Oil Well Fishing Tool Technician Name Role Phone Efra Mejia MD Primary Care Physician Encounter [facility] Date(s): 08/09/20 - 09/08/20 [facility] [address] [place] [address]- Attending Physician: Admlinda, Bobby Admitting Physician: Admtr, Bobby Referring Physician: Admtr, [...] acel(Tdap) 7 03/05/11 Given 1Result Comment: [07/31/2018] [facility]# [id number] 2Result Comment: [08/26/2015] done at [facility] 3Admin Note: VIM 03/17/12 4Admin Note: VIM 04/10/11 5Admin Note: VIS GIVEN 04/10/13 6Admin Note: vis given dated 06/21/09 7Admin Note: VIM 08/03/08 Medications albuterol CFC free 90 mcg/inh inhalation aerosol 1, puffs, Inhalation, 4 times a day, PRN, # 18 Gm, Refills 0, Tot. Refills 0, Maintenance, 12/02/2009:56:00 EDT, Aerosol, Route to Pharmacy Electronically, [id number], [facility]/pharmacy #[id number], 180.3, cm, 11/12/19 15:07:00 EST, He... [...] Maintenance, 07/02/16 16:06:12, Route to Pharmacy Electronically, [id number], [facility] Start Date: [...] 1 Refills, Maintenance, 02/05/20 14:18:00 EDT, Tablet, [facility], 3 tablet By Mouth Daily,Instr:x 8 weeks, 180.3, cm, 01/19/20 14:07:00 EDT, Height, 120.7, kg, 11/03/19 13:31:00 EST,... Start Date: 02/05/20 Status: Ordered melatonin 5 mg oral capsule 1 capsule = 5 mg, By Mouth, Daily at bedtime, # 30 capsule, 2 Refills, Maintenance, 07/10/20 12:51:00 EDT, [facility]/pharmacy #[id number], 183, cm, 07/10/20 3:29:00 EDT, Height, 119, kg, 07/09/20 0:11:00 EDT, Dry Weight Start Date: 07/10/20 Status: Ordered MiraLax oral powder for reconstitution = 17 Gm, By Mouth, Daily, dissolve in water before taking, # 527 Gm, 5 Refills, Maintenance, 06/21/20 14:32:00 EDT, REC Powder, [facility]/pharmacy #[id number], 17 Gm By Mouth Daily,Instr:dissolve in [...] 4 Refills, Maintenance, 05/31/20 14:58:00 EDT, Patch, [facility]/pharmacy #0693, 180.3, cm, 05/31/20 14:08:00 EDT, Height, 120.7, kg, 11/03/19 13:31:00 EST, Dry Weight Start Date: 05/31/20 Stop Date: 10/28/20 Status: Ordered omeprazole 20 mg oral enteric coated capsule 1 capsule = 20 mg, By Mouth, Daily, # 30 capsule, 5 Refills, Maintenance, 05/26/20 17:50:00 EDT, ECCapsule, [facility]/pharmacy #0693, 180.3, cm, 05/06/20 16:07:00 EDT, Height, 120.7, kg, 11/03/19 13:31:00EST, Dry Weight Start Date: 05/26/20 Status: Ordered Pen [place], 29 G x 12.7 mm BD Ultra Fine See Instructions, # 1 box, Refills 3, Tot. Refills 3, Maintenance, use with NOvolog Pen injection twice daily, 06/18/19 9:42:43 EDT, Compound Start Date: 06/18/19 Status: Ordered tamsulosin 0.4 mg oral capsule 0.4 mg, 1, capsule, By Mouth, Daily, # 30 capsule, Refills 11, Tot. Refills 11, Maintenance, 07/05/20 16:10:00 EDT, Route to Pharmacy Electronically, [facility]/pharmacy #[id number], 180.3, cm, 06/21/20 13:42:00 EDT, Height, 120.7, kg, 11/03/19 13:31:00 EST, Dry W... Start Date: 07/05/20 Status: Ordered traZODone 50 mg oral tablet 25 mg, By Mouth, Daily at bedtime, PRN, # 30 tablet, Refills 1, Tot. Refills 1, Maintenance, Insomnia, 07/10/20 12:52:00 EDT, Route to Pharmacy Electronically, [facility]/pharmacy #[id number], 183, cm, 07/10/20 3:29:00 EDT, Height, [...]
--- OUTSIDE RECORDS SUMMARY | 2023-10-18 20:37 | XMS_ITS | Continuity of Care Document ---
Author Name Unknown Organization [facility] Address [address] [place] [address]- Care Team Providers Care Fur Trapper Name Role Phone Efra Mejia MD Primary Care Physician Encounter [facility] [place] Date(s): 02/16/20 - 02/23/20 [facility] [address] [place] [address]- [facility] Attending Physician: Efra Mejia MD Allergies, [...] acel(Tdap) 7 03/05/11 Given 1Result Comment: [07/31/2018] [facility]# [id number] 2Result Comment: [08/26/2015] done at [facility] [...] 12/02/2009:56:00 EDT, Aerosol, Route to Pharmacy Electronically, [id number], [facility]/pharmacy #[id number], 180.3, cm, 11/12/19 15:07:00 EST, [...] 1 Refills, Maintenance, 11/12/19 10:02:00 EST, Gel, [facility]/pharmacy #[id number], 180.3, cm, 11/12/19 8:43:00 EST, [...] Maintenance, 07/02/16 16:06:12, Route to Pharmacy Electronically, [id number], [facility] Start Date: [...] 5 Refills, Maintenance, 10/22/19 10:55:00 EST, Tablet, [facility]/pharmacy #[id number], 180.3, cm, 10/22/19 10:14:00 EST, Height, 118.5, kg, 05/12/19 10:33:00 EDT, Dry Weight Start Date: 10/22/19 Status: Ordered ibuprofen 800 mg oral tablet 800 mg, 1, tablet, By Mouth, Every 8 hours, PRN, # 90 tablet, Refills 0, Tot. Refills 0, Maintenance, as needed for pain, 04/10/19 17:13:55 EDT, Route to Pharmacy Electronically, [id number], [facility] Start Date: 04/10/19 Stop Date: [...] 5 Refills, Maintenance, 01/12/20 14:27:00 EDT, Tablet, [facility]/pharmacy #[id number], 180.3, cm, 01/12/20 13:41:00 EDT, Height, 120.7, kg, 11/03/19 13:31:00EST, Dry Weight Start Date: 01/12/20 Status: Ordered Lantus Solostar Pen 100 units/mL subcutaneous solution = 60 units, Subcutaneous Injection, 2 times a day, # 15 mL, 5 Refills, Maintenance, 01/19/20 15:07:00 EDT, Solution, [facility]/pharmacy #[id number], 180.3, cm, 01/19/20 14:07:00 EDT, [...] 01/20/18 13:36:03 EDT, Route to Pharmacy Electronically, [id number], [facility] Start Date: 01/20/18 Stop Date: 01/15/19 Status: Ordered Mavyret 100 mg-40 mg oral tablet 3 tablet, By Mouth, Daily, x 8 weeks, # 84 tablet, 1 Refills, Maintenance, 02/05/20 14:18:00 EDT, Tablet, [facility], 3 tablet By Mouth Daily,Instr:x [...] 11/12/19 15:56:00 EST, Route to Pharmacy Electronically, [facility]/pharmacy #[id number], 180.3, cm, 11/12/19 15:07:00 EST, [...] Weight Start Date: 08/27/19 Status: Ordered Pen [place], 29 G x 12.7 mm BD Ultra [...] oldest [Reference Range]: 1 Height 180.3 cm (02/16/20 2:19 PM) Social History Social History Type Response Tobacco Other: 3 cigars brenden y. Sex Male
--- OUTSIDE RECORDS SUMMARY | 2023-10-18 20:37 | XMS_ITS | Continuity of Care Document ---
Author Name Unknown Organization [facility] Address [address] [place] [address]- Care Team Providers Care Websphere Commerce Consultant Name Role Phone Efra Mejia MD Primary Care Physician Encounter [facility] Date(s): 06/17/20 - 07/17/20 [facility] [address] [place] [address]- [facility] Allergies, Adverse Reactions, Alerts Substance Reaction [...] acel(Tdap) 7 03/05/11 Given 1Result Comment: [07/31/2018] [facility]# [id number] 2Result Comment: [08/26/2015] done at [facility] 3Admin Note: VIM 03/17/12 4Admin Note: VIM 04/10/11 5Admin Note: VIS GIVEN 04/10/13 6Admin Note: vis given dated 06/21/09 7Admin Note: VIM 08/03/08 Medications albuterol CFC free 90 mcg/inh inhalation aerosol 1, puffs, Inhalation, 4 times a day, PRN, # 18 Gm, Refills 0, Tot. Refills 0, Maintenance, 12/02/2009:56:00 EDT, Aerosol, Route to Pharmacy Electronically, [id number], [facility]/pharmacy #2339, 180.3, cm, 11/12/19 [...] Maintenance, 07/02/16 16:06:12, Route to Pharmacy Electronically, [id number], [facility] Start Date: [...] 07/12/20 15:44:00 EDT, Route to Pharmacy Electronically, [facility]/pharmacy #[id number], 183, cm, 07/12/20 14:47:00 EDT, Height, [...] 5 Refills, Maintenance, 05/31/20 14:57:00 EDT, Solution, [facility]/pharmacy #[id number], 180.3, cm, 05/31/20 14:08:00 EDT, Height, 120.7, kg, 11/03/19 13:31:00 EST, Dry Weight Start Date: 05/31/20 Status: Ordered levothyroxine 0.112 mg oral tablet 2 tablet = 224 mcg, By Mouth, Daily, # 60 tablet, 5 Refills, Maintenance, 07/10/20 12:51:00 EDT, Tablet, [facility]/pharmacy #[id number], 183, cm, 07/10/20 3:29:00 EDT, Height, [...] 1 Refills, Maintenance, 02/05/20 14:18:00 EDT, Tablet, [facility], 3 tablet By Mouth Daily,Instr:x [...] Refills, Maintenance, 06/21/20 14:32:00 EDT, REC Powder, [facility]/pharmacy #[id number], 17 Gm By Mouth Daily,Instr:dissolve in water beforetaking, 180.3, cm, 06/21/20 13:42:00 EDT, Height, 1... Start Date: 06/21/20 Status: Ordered Nicoderm C-Q 21 mg/24 hr transdermal film, extended release 1 patch, Topically, Daily, # 30 patch, 4 Refills, Maintenance, 05/31/20 14:58:00 EDT, Patch, [facility]/pharmacy #[id number], 180.3, cm, 05/31/20 14:08:00 EDT, Height, 120.7, kg, 11/03/19 13:31:00 EST, Dry Weight Start Date: 05/31/20 Stop Date: 10/28/20 Status: Ordered omeprazole 20 mg oral enteric coated capsule 1 capsule = 20 mg, By Mouth, Daily, # 30 capsule, 5 Refills, Maintenance, 05/26/20 17:50:00 EDT, ECCapsule, [facility]/pharmacy #[id number], 180.3, cm, 05/06/20 16:07:00 EDT, Height, 120.7, kg, 11/03/19 13:31:00EST, Dry Weight Start Date: 05/26/20 Status: Ordered Pen [place], 29 G x 12.7 mm BD Ultra Fine See Instructions, # 1 box, Refills 3, Tot. Refills 3, Maintenance, use with NOvolog Pen injection twice daily, 06/18/19 9:42:43 EDT, Compound Start Date: 06/18/19 Status: Ordered tamsulosin 0.4 mg oral capsule 0.4 mg, 1, capsule, By Mouth, Daily, # 30 capsule, Refills 11, Tot. Refills 11, Maintenance, 07/05/20 16:10:00 EDT, Route to Pharmacy Electronically, [facility]/pharmacy #[id number], 180.3, cm, 06/21/20 13:42:00 EDT, Height, 120.7, kg, 11/03/19 13:31:00 EST, Dry W... Start Date: 07/05/20 Status: Ordered traZODone 50 mg oral tablet 25 mg, By Mouth, Daily at bedtime, PRN, # 30 tablet, Refills 1, Tot. Refills 1, Maintenance, Insomnia, 07/10/20 12:52:00 EDT, [id number], cm, 07/10/20 3:29:00 EDT, Height, [...]
--- OUTSIDE RECORDS SUMMARY | 2023-10-18 20:37 | XMS_ITS | Continuity of Care Document ---
Author Name Unknown Organization [facility] Address [address] [place] [address]- Care Team Providers Care Tank Shop Supervisor Name Role Phone Roberto CH, Efra Miramontes Primary Care Physician [facility]counter [facility] Date(s): 05/24/20 - 05/24/[address] [address]- [facility] Discharge Disposition: A-D/C Home Attending Physician: Werner Garcia DO Admitting Physician: Werner Garcia DO Referring Physician: Not on Staff, Referring MD [...] Given 1Result Comment: [07/31/2018] [facility]# [id number] 2Result Comment: [08/26/2015] done at [facility] 3Admin Note: VIM 03/17/12 4Admin Note: VIM 04/10/11 5Admin Note: VIS GIVEN 04/10/13 6Admin Note: vis given dated 06/21/09 7Admin Note: VIM 08/03/08 Medications albuterol CFC free 90 mcg/inh inhalation aerosol 1, puffs, Inhalation, 4 times a day, PRN, # 18 Gm, Refills 0, Tot. Refills 0, Maintenance, 12/02/2009:56:00 EDT, Aerosol, Route to Pharmacy Electronically, [id number], [facility]/pharmacy #2339, 180.3, cm, 11/12/19 15:07:00 EST, [...] 1 Refills, Maintenance, 11/12/19 10:02:00 EST, Gel, [facility]/pharmacy #2339, 180.3, cm, 11/12/19 8:43:00 EST, [...] Maintenance, 07/02/16 16:06:12, Route to Pharmacy Electronically, [id number], [facility] Start Date: [...] 5 Refills, Maintenance, 10/22/19 10:55:00 EST, Tablet, [facility]/pharmacy #2339, 180.3, cm, 10/22/19 10:14:00 EST, Height, 118.5, kg, 05/12/19 10:33:00 EDT, Dry Weight Start Date: 10/22/19 Status: Ordered ibuprofen 800 mg oral tablet 800 mg, 1, tablet, By Mouth, Every 8 hours, PRN, # 90 tablet, Refills 0, Tot. Refills 0, Maintenance, as needed for pain, 04/10/19 17:13:55 EDT, Route to Pharmacy Electronically, [id number], [facility] Start Date: 04/10/19 Stop Date: [...] 5 Refills, Maintenance, 01/19/20 15:07:00 EDT, Solution, [facility]/pharmacy #2339, 180.3, cm, 01/19/20 14:07:00 EDT, [...] 01/20/18 13:36:03 EDT, Route to Pharmacy Electronically, [id number], [facility] Start Date: 01/20/18 Stop Date: [...] Weight Start Date: 08/27/19 Status: Ordered Pen [place], 29 G x 12.7 mm BD Ultra [...] 2 Oxygen Saturation [94-100 %] 97 % (05/24/20 3:32 PM) 96 % (05/24/20 12:10 PM) Pulse Rate [55-90 bpm] 59 bpm (05/24/20 3:32 PM) 58 bpm (05/24/20 12:10 PM) Blood Pressure [90-138/55-84 mm Hg] 150/ 78mm Hg *H* (05/24/20 3:32 PM) 137/77mm Hg (05/24/20 12:10 PM) Respiratory Rate [16-30 br/min] 16 br/mi n (05/24/20 3:32 PM) 16 br/min (05/24/20 12:10 PM) Temperature [96.8-100.4 DegF] 97.8 DegF (05/24/20 3:32 PM) 98.0 DegF (05/24/20 12:10 PM) Mode of Delivery (Oxygen) Room air (05/24/20 3:32 PM) Room air (05/24/20 12:10 PM) Blood pressure sites Arm, right (05/24/20 3:32 PM) Arm, left (05/24/20 12:10 PM) Temperature Route Oral (05/24/20 3:32 PM) Oral (05/24/20 12:10 PM) Social History Social History Type Response Tobacco Other: 3 cigars brenden y. Sex Male
--- OUTSIDE RECORDS SUMMARY | 2023-10-18 20:37 | XMS_ITS | Continuity of Care Document ---
Author Name Unknown Organization [facility] Address [address] [place] [address]- Care Team Providers Care Accounts Manager Name Role Phone Roberto CH, Efra Miramontes Primary Care Physician [phone] Encounter [facility] Date(s): 08/04/21 - 09/03/21 [facility] [address] [place], [place] [address] Allergies, Adverse Reactions, Alerts Substance Reaction Severity [...] 23-valent vaccine 8 04/01/12 Given 1Result Comment: [facility]#[id number] 2Result Comment: [07/31/2018] [facility]# [id number] 3Result Comment: [08/26/2015] done at [facility] 4Admin Note: VIM 03/17/12 5Admin Note: VIM 04/10/11 6Admin Note: VIM 08/03/08 7Admin Note: VIS GIVEN 04/10/13 8Admin Note: vis given dated 06/21/09 Medications donepezil 5 mg oral tablet 5 mg, 1, tablet, By Mouth, Daily, # 30 tablet, Refills 5, Tot. Refills 5, Maintenance, 06/02/21 14:20:00 EDT, Route to Pharmacy Electronically, [facility] [...] 08/31/21 11:40:00 EST, Route to Pharmacy Electronically, [facility]/pharmacy #[id number], Partial fill upon patient requestif the prescription is for a schedule II opioid valencia... Start Date: 08/31/21 Status: Ordered fluticasone 50 mcg/inh nasal spray 2 sprays, Nares, Both, Daily in AM, 0 Refills, Maintenance, 07/14/21 14:22:00 EDT, [place], Partial fill upon patient request if the [...] 08/31/21 11:39:00 EST, Route to Pharmacy Electronically, [facility]/pharmacy #0693, Partial fill upon patient request if the prescription is for a schedule II... Start Date: 08/31/21 Status: Ordered levothyroxine 0.112 mg oral tablet 2 tablet = 224 mcg, By Mouth, Daily, # 60 tablet, 5 Refills, Maintenance, 10/27/20 10:22:00 EST, Tablet, [facility]/pharmacy #0693, 183, cm, 10/27/20 8:41:00 EST, Height, [...] Start Date: 07/13/21 Status: Ordered nystatin topical 938594 u/gm powder See Instructions, apply to stump 3 x day, # 120 Gm, 5 Refills, Maintenance, 07/06/21 12:35:00 EDT, Powder, [facility]/pharmacy #0693, Partial fill upon patient request if the prescription is for a schedule II opioid drug., apply to stump 3 x day, 180, cm,... Start Date: 07/06/21 Status: Ordered omeprazole 20 mg oral enteric coated capsule 1 capsule = 20 mg, By Mouth, Daily, # 30 capsule, 5 Refills, Maintenance, 10/27/20 10:22:00 EST, ECCapsule, [facility]/pharmacy #0693, 183, cm, 10/27/20 8:41:00 EST, Height, [...] Maintenance, 07/06/2111:55:00 EDT, Route to Pharmacy Electronically, [facility]/pharmacy #[id number], Partial fill upon patient request if the prescription is for a schedule II opioid d... Start Date: 07/06/21 Status: Ordered Trulicity Pen 0.75 mg/0.5 mL subcutaneous solution 0.5 mL = 0.75 mg, Subcutaneous Injection, Every week, rotate injection sites, # 2 mL, 0 Refills, Maintenance, 07/06/21 12:35:00 EDT, Solution, [facility]/pharmacy #0693, Partial fill upon patient request ifthe [...]
--- OUTSIDE RECORDS SUMMARY | 2023-10-18 20:37 | XMS_ITS | Continuity of Care Document ---
Author Name Unknown Organization [facility] Address [address] [place] [address]- Care Team Providers Care Software Development Leader Name Role Phone Efra Mejia MD Primary Care Physician [facility]counter [facility] Date(s): 03/31/20 - 04/30/20 [facility] [address] [place] [address]- [facility] Attending Physician: Admlinda, Bobby Admitting Physician: Admtr, [...] Given 1Result Comment: [07/31/2018] [facility]# [id number] 2Result Comment: [08/26/2015] done at [facility] 3Admin Note: VIM 03/17/12 4Admin Note: VIM 04/10/11 5Admin Note: VIS GIVEN 04/10/13 6Admin Note: vis given dated 06/21/09 7Admin Note: VIM 08/03/08 Medications albuterol CFC free 90 mcg/inh inhalation aerosol 1, puffs, Inhalation, 4 times a day, PRN, # 18 Gm, Refills 0, Tot. Refills 0, Maintenance, 12/02/2009:56:00 EDT, Aerosol, Route to Pharmacy Electronically, [id number], [facility]/pharmacy #[id number], 180.3, cm, 11/12/19 15:07:00 [...] 1 Refills, Maintenance, 11/12/19 10:02:00 EST, Gel, [facility]/pharmacy #[id number], 180.3, cm, 11/12/19 8:43:00 [...] Maintenance, 07/02/16 16:06:12, Route to Pharmacy Electronically, [id number], [facility] Start Date: [...] 5 Refills, Maintenance, 10/22/19 10:55:00 EST, Tablet, [facility]/pharmacy #[id number], 180.3, cm, 10/22/19 10:14:00 EST, Height, 118.5, kg, 05/12/19 10:33:00 EDT, Dry Weight Start Date: 10/22/19 Status: Ordered ibuprofen 800 mg oral tablet 800 mg, 1, tablet, By Mouth, Every 8 hours, PRN, # 90 tablet, Refills 0, Tot. Refills 0, Maintenance, as needed for pain, 04/10/19 17:13:55 EDT, Route to Pharmacy Electronically, [id number], [id number] #[facility] Start Date: 04/10/19 Stop Date: [...] 5 Refills, Maintenance, 01/12/20 14:27:00 EDT, Tablet, [facility]/pharmacy #[id number], 180.3, cm, 01/12/20 13:41:00 EDT, Height, 120.7, kg, 11/03/19 13:31:00EST, Dry Weight Start Date: 01/12/20 Status: Ordered Lantus Solostar Pen 100 units/mL subcutaneous solution = 60 units, Subcutaneous Injection, 2 times a day, # 15 mL, 5 Refills, Maintenance, 01/19/20 15:07:00 EDT, Solution, [facility]/pharmacy #[id number], 180.3, cm, 01/19/20 14:07:00 [...] 01/20/18 13:36:03 EDT, Route to Pharmacy Electronically, [id number], [facility] Start Date: 01/20/18 Stop Date: 01/15/19 Status: Ordered Mavyret 100 mg-40 mg oral tablet 3 tablet, By Mouth, Daily, x 8 weeks, # 84 tablet, 1 Refills, Maintenance, 02/05/20 14:18:00 EDT, Tablet, [facility], 3 tablet By Mouth [...] 11/12/19 15:56:00 EST, Route to Pharmacy Electronically, [facility]/pharmacy #[id number], 180.3, cm, 11/12/19 15:07:00 [...] Weight Start Date: 08/27/19 Status: Ordered Pen [place], 29 G x 12.7 mm BD Ultra [...]
--- OUTSIDE RECORDS SUMMARY | 2023-10-18 20:37 | XMS_ITS | Continuity of Care Document ---
Author Name Unknown Organization [facility] Address [address] [place] [address]- Care Team Providers Care Director Of Software Development Name Role Phone Efra Mejia MD Primary Care Physician Encounter [facility] Date(s): 12/31/19 - 01/07/20 [facility] [address] [place] [address]- [place] Encounter Diagnosis Diabetic nephropathy(Discharge Diagnosis) - 12/31/19 Temporal headache(Discharge Diagnosis) - 12/31/19 Chronic sinusitis, unspecified(Discharge Diagnosis) - 12/31/19 Tobacco dependence(Discharge Diagnosis) - 12/31/19 Attending Physician: Efra Mejia MD Allergies, Adverse [...] 1Result Comment: [07/31/2018] [facility]# [id number] 2Result Comment: [08/26/2015] done at [facility] 3Admin Note: VIM 03/17/12 4Admin Note: VIM 04/10/11 5Admin Note: VIS GIVEN 04/10/13 6Admin Note: vis given dated 06/21/09 7Admin Note: VIM 08/03/08 Medications albuterol CFC free 90 mcg/inh inhalation aerosol 1, puffs, Inhalation, 4 times a day, PRN, # 18 Gm, Refills 0, Tot. Refills 0, Maintenance, 12/02/2009:56:00 EDT, Aerosol, Route to Pharmacy Electronically, [id number], [facility]/pharmacy #[id number], 180.3, cm, 11/12/19 15:07:00 EST, He... Start Date: 12/03/19 Status: Ordered amoxicillin-clavulanate 500 mg-125 mg oral tablet 1 tablet, By Mouth, Every 12 hours, for 7 days, # 14 tablet, 0 Refills, Acute 01/08/20 14:42:00 EDT, 01/01/20 14:42:00 EDT, Tablet, [facility], 180.3, cm, 11/12/19 15:07:00 EST, Height, 118.5, kg, 05/12/19 10:33:00 EDT, Dry Weight Start Date: 01/01/20 Stop Date: 01/08/20 Status: Ordered aspirin 81 mg oral delayed release tablet 81 mg, 1, tablet, By Mouth, Daily, # 90 tablet, Refills 0, Maintenance, 01/20/18 13:33:45 EDT Start Date: 01/20/18 Status: Ordered Azithromycin 5 Day Dose Pack 250 mg oral tablet 1 pack/packet, By Mouth, Once, # 6 tablet, 0 Refills, Soft Stop, 01/01/20 14:41:00 EDT, Tablet, [facility], 180.3, cm, 11/12/19 15:07:00 EST, Height, 118.5, kg, 05/12/19 10:33:00 EDT, Dry Weight Start Date: 01/01/20 Status: Ordered Compression Stockings See Instructions, # [...] Maintenance, 07/02/16 16:06:12, Route to Pharmacy Electronically, [id number], [facility] Start Date: [...] Refills, Maintenance, 10/22/19 10:55:00 EST, Tablet, [facility]/pharmacy #[id number], 180.3, cm, 10/22/19 10:14:00 EST, Height, 118.5, kg, 05/12/19 10:33:00 EDT, Dry Weight Start Date: 10/22/19 Status: Ordered ibuprofen 800 mg oral tablet 800 mg, 1, tablet, By Mouth, Every 8 hours, PRN, # 90 tablet, Refills 0, Tot. Refills 0, Maintenance, as needed for pain, 04/10/19 17:13:55 EDT, Route to Pharmacy Electronically, [id number], [facility] Start Date: 04/10/19 Stop Date: 05/10/19 Status: Ordered Insulin Syringe, BD Ultra-Fine 0.3 cc 31 G x 8 mm (16in) See Instructions, # 100 each, Refills 1, Tot. Refills 1, Maintenance, as directed for type 2 diabetes., 05/21/19 12:51:57 EDT, Compound Start Date: 05/21/19 Status: Ordered Lantus Solostar Pen 100 units/mL subcutaneous solution = 50 units, Subcutaneous Injection, 3 times a day, # 15 mL, 5 Refills, Maintenance, 12/31/19 16:01:00 EDT, Solution, [facility], 180.3, cm, 11/12/19 15:07:00 EST, Height, 120.7, kg,11/03/19 13:31:00 EST, Dry Weight Start Date: 12/31/19 Status: Ordered levothyroxine 0.112 mg oral tablet 2 tablet = 224 mcg, By Mouth, Daily, # 60 tablet, 5 Refills, Maintenance, 06/18/19 9:13:12 EDT, Tablet Start Date: 06/18/19 Stop Date: 12/15/19 Status: Ordered lisinopril 20 mg oral tablet 20 mg, 1, tablet, By Mouth, Daily, # 90 tablet, Refills 3, Tot. Refills 3, Maintenance, 01/20/18 13:36:03 EDT, Route to Pharmacy Electronically, [id number], [facility] Start Date: [...] 15:56:00 EST, Route to Pharmacy Electronically, [facility]/pharmacy #[id number], 180.3, cm, 11/12/19 15:07:00 [...] Weight Start Date: 08/27/19 Status: Ordered Pen [place], 29 G x 12.7 mm BD Ultra [...] Clinical Service Informant Diabetic nephropathy Discharge Diagnosis 12/31/19 Temporal headache Discharge Diagnosis 12/31/19 Chronic sinusitis, unspecified Discharge Diagnosis 12/31/19 Tobacco dependence Discharge Diagnosis 12/31/19 Social History Social History Type Response Tobacco Other: 3 cigars brenden y. Sex Male
--- OUTSIDE RECORDS SUMMARY | 2023-10-18 20:37 | XMS_ITS | Continuity of Care Document ---
Author Name Unknown Organization [facility] Address [address] [place] [address]- Care Team Providers Care Parachute Inspector Name Role Phone Roberto CH, Efra Miramontes Primary Care Physician Encounter [facility] Date(s): 09/23/20 - 09/26/[address] [address]- Encounter Diagnosis Cellulitis of axilla, right(Final) - 09/24/20 Discharge Disposition: A-D/C Home Attending Physician: Mariela Bo MD Admitting Physician: Brandie Osorio MD Referring Physician: Not on Staff, Referring [...] Comment: [07/31/2018] [facility]# [id number] 2Result Comment: [08/26/2015] done at [facility] 3Admin Note: VIM 03/17/12 4Admin Note: VIM 04/10/11 5Admin Note: VIS GIVEN 04/10/13 6Admin Note: vis given dated 06/21/09 7Admin Note: VIM 08/03/08 Medications albuterol CFC free 90 mcg/inh inhalation aerosol 1, puffs, Inhalation, 4 times a day, PRN, # 18 Gm, Refills 0, Tot. Refills 0, Maintenance, 12/02/2009:56:00 EDT, Aerosol, Route to Pharmacy Electronically, [id number], [facility]/pharmacy #[id number], 180.3, cm, [...] EDT, Film Start Date: 07/10/20 Status: Ordered cephalexin monohydrate 500 mg oral capsule 1 capsule = 500 mg, By Mouth, Every 6 hours, # 10 capsule, 0 Refills, Acute 09/28/20 21:00:00 EST, 09/26/20 13:07:00 EST, Capsule, [facility], Partial fill upon patient request if the prescription is for a schedule II opioid drug., 183,... Start Date: 09/26/20 Stop Date: 09/28/20 Status: Ordered Compression Stockings See Instructions, # 2 each, Maintenance, surgical, calf length 20-30 mm Hg, 11/12/19 10:03:00 EST, Compound Start Date: 11/12/19 Status: Ordered folic acid 1 mg oral tablet 1 mg, 1, tablet, By Mouth, 2 times a day, Take with food, # 60 tablet, Refills 5, Tot. Refills 5, Maintenance, 07/02/16 16:06:12, Route to Pharmacy Electronically, [id number], [facility] Start Date: [...] gabapentin 100 mg oral capsule 100 mg, Capsule, By Mouth, hold for somnolence/AMS, 09/26/20 9:00:00 EST Start Date: 09/26/20 Stop Date: 09/26/20 Status: Completed gabapentin 100 mg oral capsule See Instructions, [...] 5 Refills, Maintenance, 09/06/20 13:05:00 EST, Solution, [facility]/pharmacy #[id number], 183, cm, 07/12/20 14:47:00 EDT, Height, 119, kg, 07/09/20 0:11:00 EDT, Dry Weight Start Date: 09/06/20 Status: Ordered levothyroxine 0.112 mg oral tablet 2 tablet = 224 mcg, By Mouth, Daily, # 60 tablet, 5 Refills, Maintenance, 07/10/20 12:51:00 EDT, Tablet, [facility]/pharmacy #[id number], 183, cm, 07/10/20 3:29:00 EDT, Height, 119, kg, 07/09/20 0:11:00 EDT, Dry Weight Start Date: 07/10/20 Stop Date: 01/06/21 Status: Ordered lisinopril 20 mg oral tablet 40 mg, Tablet, By Mouth, 09/26/20 9:00:00 EST Start Date: 09/26/20 Stop Date: 09/26/20 Status: Completed lisinopril 20 mg oral tablet 40 mg, 2, tablet, By Mouth, Daily, Refills 0, Maintenance, 07/10/20 12:49:00 EDT Start Date: 07/10/20 Status: Ordered Lotrimin AF 1% topical cream 1 application, Topically, 2 times a day, # 45 Gm, 0 Refills, Acute 10/03/20 13:15:00 EST, 09/26/20 13:09:00 EST, Cream, [facility], Partial fill upon patient request if the prescriptionis for a schedule II opioid drug., 1 application To... Start Date: 09/26/20 Stop Date: 10/03/20 Status: Ordered MiraLax oral powder for reconstitution = 17 Gm, By Mouth, Daily, dissolve in water before taking, # 527 Gm, 5 Refills, Maintenance, 06/21/20 14:32:00 EDT, REC Powder, [facility]/pharmacy #[id number], 17 Gm By Mouth [...] 5 Refills, Maintenance, 05/26/20 17:50:00 EDT, ECCapsule, [facility]/pharmacy #[id number], 180.3, cm, 05/06/20 16:07:00 EDT, Height, 120.7, kg, 11/03/19 13:31:00EST, Dry Weight Start Date: 05/26/20 Status: Ordered Pen [place], 29 G x 12.7 mm BD Ultra Fine See Instructions, # 1 box, Refills 3, Tot. Refills 3, Maintenance, use with NOvolog Pen injection twice daily, 06/18/19 9:42:43 EDT, Compound Start Date: 06/18/19 Status: Ordered tamsulosin 0.4 mg oral capsule 0.4 mg, 1, capsule, By Mouth, Daily, # 30 capsule, Refills 11, Tot. Refills 11, Maintenance, 07/05/20 16:10:00 EDT, Route to Pharmacy Electronically, [facility]/pharmacy #[id number], 180.3, cm, 06/21/20 13:42:00 EDT, Height, 120.7, kg, 11/03/19 13:31:00 EST, Dry W... Start Date: 07/05/20 Status: Ordered Tylenol 325 mg oral tablet 650 mg, 2, tablet, By Mouth, Every 4 hours, PRN, # 90 tablet, Refills 0, Tot. Refills 0, Acute 11/04/20 13:07:00 EST, Pain , Mild, 09/26/20 13:07:00 EST, Route to Pharmacy Electronically, [facility], Partial fill upon patient [...] Exam Date Time Procedure Performing Provider Status 09/23/20 1:41 PM Shoulder Min 2 Views Right Pretty Rosario; Anibal (Verified) Notes: (Shoulder Min 2 Views Right) Reason For Exam: with Pain;Trauma RESULT: Shoulder Min 2 Views Right Shoulder 2 Views Right REASON: Trauma; with Pain; Clinical Question(s): Fracture COMPARISON: 05/22/2018. Correlation with CT shoulder from today. FINDINGS: Status post anatomic shoulder arthroplasty. The humeral component appears intact and aligned with the glenoid. No fracture or dislocation. There is lucency surrounding the hardware in the glenoid. No periprosthetic fractures. Hyperdense fragments adjacent to the inferior glenoid. Normal AC joint and portions of the clavicle included on the exam. IMPRESSION: Glenoid periprosthetic lucencies, which may represent hardware loosening and/or infection. Hyperdense material inferior aspect of the glenoid may reflect fragments of the polyethylene liner. I have personally reviewed the images and I agree with this report. WSN: [id number] Ordering Physician: Zayda Velasco Dictated By: Shailesh Boyd MD Dictated Date/Time: 09/23/20 2:03 pm Reviewed By: Nato Honeycutt MD Signed By: Nato Honeycutt MD Signed Date/Time: 09/23/20 2:08 pm Transcribed By: CATARINO Transcribed Date/Time: 09/23/20 1:52 pm * Exam Date Time Procedure Performing Provider Status 09/23/20 8:42 AM Pelvis 1 or 2 Views Rosette Cline; Anibal (Verified) Notes: (Pelvis 1 or 2 Views) Reason For Exam: with Pain;Trauma RESULT: Pelvis 1 or 2 Views Pelvis 1 or 2 Views Hx of Present Illness: pt reports worsening abscess under right arm for the past 2 weeks. Denies fevers or chills. Also states 4 falls in the past week and c o severe pain in his ass ; Reason: Trauma; with Pain; Clinical Question(s): Fracture COMPARISON: None. FINDINGS: Prominent soft tissue artifacts. There is no fracture or dislocation. There are degenerative changes of the hips. There are degenerative changes of the included lower lumbar spine. Normal soft tissues. IMPRESSION: No fracture or dislocation. WSN: [id number] Ordering Physician: Zayda Velasco Dictated By: Kylee Lam MD Dictated Date/Time: 09/23/20 8:55 am Reviewed By: Kylee Lam MD Signed By: Kylee Lam MD Signed Date/Time: 09/23/20 8:55 am Transcribed By: CATARINO Transcribed Date/Time: 09/23/20 8:53 am Vital Signs Most recent to oldest [Reference Range]: 1 2 3 Height 183 cm (09/25/20 9:10 PM) 183 cm (09/25/20 4:00 PM) 183 cm (09/25/20 12:40 PM) Weight 119 kg (09/23/20 5:06 PM) Oxygen Saturation [94-100 %] 97 % (09/26/20 11:00 AM) 99 % (09/26/20 7:00 AM) 97 % (09/25/20 9:10 PM) Pulse Rate [55-90 bpm] 63 bpm (09/26/20 11:00 AM) 57 bpm (09/26/20 7:00 AM) 56 bpm (09/25/20 9:10 PM) Body Mass Index [18.5-24.99] 35.53 *>HHI* (09/23/20 5:06 PM) Blood Pressure [90-138/55-84 mm Hg] 141/83mm Hg *H* (09/26/20 11:00 AM) 143/78mm Hg *H* (09/26/20 9:12 AM) 143/78mm Hg *H* (09/26/20 7:00 AM) Respiratory Rate [16-30 br/min] 18 br/min (09/26/20 11:00 AM) 18 br/min (09/26/20 10:12 AM) 18 br/min (09/26/20 9:12 AM) Temperature [96.8-100.4 DegF] 97.6 DegF (09/26/20 11:00 AM) 97.9 DegF (09/26/20 7:00 AM) 98.7 DegF (09/25/20 9:10 PM) Liters per Minute 0 L/min (09/25/20 12:17 AM) 0 L/min (09/24/20 7:28 PM) 0 L/min (09/23/20 11:20 PM) Mode of Delivery (Oxygen) Room air (09/26/20 11:00 AM) Room air (09/26/20 7:00 AM) Room air (09/25/20 9:10 PM) Blood pressure sites Arm, left (09/26/20 11:00 AM) Arm, right (09/26/20 7:00 AM) Arm, left (09/25/20 9:10 PM) Temperature Route Oral (09/26/20 11:00 AM) Oral (09/26/20 7:00 AM) Temporal (09/25/20 9:10 PM) Dry Weight 119 kg (09/23/20 5:06 PM) Social History Social History Type Response Tobacco Other: 3 cigars brenden y. Sex Male
--- OUTSIDE RECORDS SUMMARY | 2023-10-18 20:37 | XMS_ITS | Continuity of Care Document ---
Author Name Unknown Organization [facility] Address [address] [place] [address]- Care Team Providers Care Military Logistics Specialist Name Role Phone Roberto CH, Efra Miramontes Primary Care Physician [phone] Encounter [facility] Date(s): 01/23/21 - 01/23/[address] [address]- Discharge Disposition: A-D/C Walkout Attending Physician: Daron Dover MD Admitting Physician: Daron Dover MD Referring Physician: Not on Staff, Referring [...] acel(Tdap) 7 03/05/11 Given 1Result Comment: [07/31/2018] [facility]# [id number] 2Result Comment: [08/26/2015] done at [facility] 3Admin Note: VIM 03/17/12 4Admin Note: VIM 04/10/11 5Admin Note: VIS GIVEN 04/10/13 6Admin Note: vis given dated 06/21/09 7Admin Note: VIM 08/03/08 Medications albuterol CFC free 90 mcg/inh inhalation aerosol 1, puffs, Inhalation, 4 times a day, PRN, # 18 Gm, Refills 0, Tot. Refills 0, Maintenance, 12/02/2009:56:00 EDT, Aerosol, Route to Pharmacy Electronically, [id number], [facility]/pharmacy #[id number], 180.3, cm, 11/12/19 15:07:00 [...] Gm, 5 Refills, Maintenance, 12/15/20 12:56:00 EDT, [place], [facility]/pharmacy #[id number], Partial fill upon patient [...] Maintenance, 07/02/16 16:06:12, Route to Pharmacy Electronically, [id number], [facility] Start Date: [...] 10/27/20 10:24:00 EST, Route to Pharmacy Electronically, [facility]/pharmacy #[id number], Partial fill upon patient [...] 5 Refills, Maintenance, 10/27/20 10:22:00 EST, Solution, [id number], 183, cm, 10/27/20 8:41:00 EST, Height, 119, kg, 09/23/20 17:06:00 EST, Dry Weight Start Date: 10/27/20 Status: Ordered levothyroxine 0.112 mg oral tablet 2 tablet = 224 mcg, By Mouth, Daily, # 60 tablet, 5 Refills, Maintenance, 10/27/20 10:22:00 EST, Tablet, [facility]/pharmacy #[id number], 183, cm, 10/27/20 8:41:00 EST, Height, 119, kg, 09/23/20 17:06:00 EST, DryWeight Start Date: 10/27/20 Stop Date: 04/25/21 Status: Ordered lisinopril 20 mg oral tablet 40 mg, 2, tablet, By Mouth, Daily, # 60 tablet, Refills 5, Tot. Refills 5, Maintenance, 10/27/20 10:22:00 EST, Route to Pharmacy Electronically, [facility]/pharmacy #[id number], Partial fill upon patient request if the prescription is for a schedule II opioid drug... Start Date: 10/27/20 Status: Ordered Melatonin 5 mg oral tablet 1 tablet = 5 mg, By Mouth, Daily at bedtime, # 30 tablet, 5 Refills, Maintenance, 12/15/20 12:56:00EDT, Tablet, [facility]/pharmacy #[id number], Partial fill upon patient request if the prescription is for a schedule II opioid drug., 183, cm, 12/15/20 11:23:00 ED... Start Date: 12/15/20 Status: Ordered MiraLax oral powder for reconstitution = 17 Gm, By Mouth, Daily, dissolve in water before taking, # 527 Gm, 5 Refills, Maintenance, 10/27/20 10:23:00 EST, REC Powder, [facility]/pharmacy #[id number], 17 Gm By Mouth Daily,Instr:dissolve in water beforetaking, 183, cm, 10/27/20 8:41:00 EST, Height, 119,... Start Date: 10/27/20 Status: Ordered nystatin topical 206109 u/gm powder See Instructions, apply to stump daily, # 30 Gm, 5 Refills, Maintenance, 12/15/20 12:56:00 EDT, Powder, [facility]/pharmacy #[id number], Partial fill upon patient request if the prescription is for a schedule II opioid drug., apply to stump daily, 183, cm, ... Start Date: 12/15/20 Status: Ordered omeprazole 20 mg oral enteric coated capsule 1 capsule = 20 mg, By Mouth, Daily, # 30 capsule, 5 Refills, Maintenance, 10/27/20 10:22:00 EST, ECCapsule, [facility]/pharmacy #[id number], 183, cm, 10/27/20 8:41:00 EST, Height, 119, kg, 09/23/20 17:06:00 EST,Dry Weight Start Date: 10/27/20 Status: Ordered Pen [place], 29 G x 12.7 mm BD Ultra [...] 12/15/20 12:56:00 EDT, Route to Pharmacy Electronically, [facility]/pharmacy #[id number], 183, cm, 12/15/20 11:23:00 EDT, [...] Refills, Maintenance, 12/15/20 12:38:00 EDT, Solution, [id number], Partial fill upon patient request if the [...]
--- OUTSIDE RECORDS SUMMARY | 2023-10-18 20:37 | XMS_ITS | Continuity of Care Document ---
Author Name Unknown Organization [facility] Address [address] [place] [address]- Care Team Providers Care Mink Slicer Name Role Phone Roberto CH, Efra Miramontes Primary Care Physician [phone] Encounter [facility] Date(s): 08/25/21 - 09/24/21 [facility] [address] [place], [place] [address] [[email or web address]] Allergies, Adverse Reactions, Alerts Substance Reaction Severity [...] Given 1Result Comment: [facility]#[id number] 2Result Comment: [07/31/2018] [facility]# [id number] 3Result Comment: [08/26/2015] done at [facility] 4Admin Note: VIM 03/17/12 5Admin Note: VIM 04/10/11 6Admin Note: VIM 08/03/08 7Admin Note: VIS GIVEN 04/10/13 8Admin Note: vis given dated 06/21/09 Medications donepezil 5 mg oral tablet 5 mg, 1, tablet, By Mouth, Daily, # 30 tablet, Refills 5, Tot. Refills 5, Maintenance, 06/02/21 14:20:00 EDT, Route to Pharmacy Electronically, [facility]/pharmacy #[id number], Partial fill upon patient request if [...] 08/31/21 11:40:00 EST, Route to Pharmacy Electronically, [facility]/pharmacy #[id number], Partial fill upon patient requestif the prescription is for a schedule II opioid valencia... Start Date: 08/31/21 Status: Ordered fluticasone 50 mcg/inh nasal spray 2 sprays, Nares, Both, Daily in AM, 0 Refills, Maintenance, 07/14/21 14:22:00 EDT, [place], Partial fill upon patient request if the [...] 11:39:00 EST, Route to Pharmacy Electronically, [facility]/pharmacy #[id number], Partial fill upon patient request if the prescription is for a schedule II... Start Date: 08/31/21 Status: Ordered levothyroxine 0.112 mg oral tablet 2 tablet = 224 mcg, By Mouth, Daily, # 60 tablet, 5 Refills, Maintenance, 10/27/20 10:22:00 EST, Tablet, [facility]/pharmacy #[id number], 183, cm, 10/27/20 8:41:00 EST, Height, [...] Start Date: 07/13/21 Status: Ordered nystatin topical 348566 u/gm powder See Instructions, apply to stump 3 x day, # 120 Gm, 5 Refills, Maintenance, 07/06/21 12:35:00 EDT, Powder, [facility]/pharmacy #[id number], Partial fill upon patient request if the prescription is for a schedule II opioid drug., apply to stump 3 x day, 180, cm,... Start Date: 07/06/21 Status: Ordered omeprazole 20 mg oral enteric coated capsule 1 capsule = 20 mg, By Mouth, Daily, # 30 capsule, 5 Refills, Maintenance, 10/27/20 10:22:00 EST, ECCapsule, [facility]/pharmacy #[id number], 183, cm, 10/27/20 8:41:00 EST, Height, [...] 07/06/2111:55:00 EDT, Route to Pharmacy Electronically, [facility]/pharmacy #[id number], Partial fill upon patient request if the prescription is for a schedule II opioid d... Start Date: 07/06/21 Status: Ordered Trulicity Pen 0.75 mg/0.5 mL subcutaneous solution 0.5 mL = 0.75 mg, Subcutaneous Injection, Every week, rotate injection sites, # 2 mL, 0 Refills, Maintenance, 07/06/21 12:35:00 EDT, Solution, [facility]/pharmacy #[id number], Partial fill upon patient request ifthe [...]
--- OUTSIDE RECORDS SUMMARY | 2023-10-18 20:37 | XMS_ITS | Continuity of Care Document ---
Author Name Unknown Organization [facility] ter Address [address] [place] [address]- Care Team Providers Care Gis Analyst Developer Name Role Phone Roberto CH, Efra Miramontes Primary Care Physician Encounter [facility] Date(s): 01/01/20 - 01/01/[address] [address]- [place] Encounter Diagnosis Chest pain(Final) - 01/01/20 Discharge Disposition: A-D/C Home Attending Physician: Kamini Khalil MD Admitting Physician: Kamini Khalil MD Referring Physician: Not on Staff, Referring [...] acel(Tdap) 7 03/05/11 Given 1Result Comment: [07/31/2018] [facility]# [id number] 2Result Comment: [08/26/2015] done at [facility] 3Admin Note: VIM 03/17/12 4Admin Note: VIM 04/10/11 5Admin Note: VIS GIVEN 04/10/13 6Admin Note: vis given dated 06/21/09 7Admin Note: VIM 08/03/08 Medications albuterol CFC free 90 mcg/inh inhalation aerosol 1, puffs, Inhalation, 4 times a day, PRN, # 18 Gm, Refills 0, Tot. Refills 0, Maintenance, 12/02/2009:56:00 EDT, Aerosol, Route to Pharmacy Electronically, [id number], [facility]/pharmacy #[id number], 180.3, cm, 11/12/19 15:07:00 EST, He... Start Date: 12/03/19 Status: Ordered amoxicillin-clavulanate 500 mg-125 mg oral tablet 1 tablet, By Mouth, Every 12 hours, for 7 days, # 14 tablet, 0 Refills, Acute 01/08/20 14:42:00 EDT, 01/01/20 14:42:00 EDT, Tablet, [facility] #[facility], 180.3, cm, 11/12/19 15:07:00 EST, [...] Stop, 01/01/20 14:41:00 EDT, Tablet, [facility] #36, 180.3, cm, 11/12/19 15:07:00 EST, [...] Maintenance, 07/02/16 16:06:12, Route to Pharmacy Electronically, [id number], [facility] #[facility] Start Date: [...] 5 Refills, Maintenance, 10/22/19 10:55:00 EST, Tablet, [facility]/pharmacy #[id number], 180.3, cm, 10/22/19 10:14:00 EST, Height, 118.5, kg, 05/12/19 10:33:00 EDT, Dry Weight Start Date: 10/22/19 Status: Ordered ibuprofen 800 mg oral tablet 800 mg, 1, tablet, By Mouth, Every 8 hours, PRN, # 90 tablet, Refills 0, Tot. Refills 0, Maintenance, as needed for pain, 04/10/19 17:13:55 EDT, Route to Pharmacy Electronically, [id number], [facility] #[facility] Start Date: [...] 01/20/18 13:36:03 EDT, Route to Pharmacy Electronically, [id number], [facility] #[facility] Start Date: [...] 11/12/19 15:56:00 EST, Route to Pharmacy Electronically, [facility]/pharmacy #[id number], 180.3, cm, 11/12/19 15:07:00 EST, Height, [...] Weight Start Date: 08/27/19 Status: Ordered Pen [place], 29 G x 12.7 mm BD Ultra [...] Exam Date Time Procedure Performing Provider Status 01/01/20 11:59 AM Chest 2 Views Frontal and Lat Rema Lao; Auth (Verified) Notes: (Chest 2 Views Frontal and Lat) Reason For Exam: Angina RESULT: Chest 2 Views Frontal and Lat Chest 2 Views Frontal and Lat Reason: Angina; Clinical Question(s): Pneumonia COMPARISON: July,. FINDINGS: Mild to moderate increased markings left lower lung field, new since prior. A stone lateral this appears to be posterior in location. CP angles sharp. Cardiac silhouette unremarkable. Some vascular prominence is seen. IMPRESSION: Mild to moderate infiltrate left base. Some vascular prominence is seen. WSN: [id number] Ordering Physician: Chloe Srivastava Dictated By: Daron Domínguez MD Dictated Date/Time: 01/01/20 12:08 p Reviewed By: Daron Domínguez MD Signed By: Daron Domínguez MD Signed Date/Time: 01/01/20 12:08 pm Transcribed By: CATARINO Transcribed Date/Time: 01/01/20 12:01 pm Vital Signs Most recent to oldest [Reference Range]: 1 2 3 Oxygen Saturation [94-100 %] 98 % (01/01/20 3:51 PM) 97 % (01/01/20 2:32 PM) 93 % *L* (01/01/20 12:53 PM) Pulse Rate [55-90 bpm] 75 bpm (01/01/20 3:51 PM) 67 bpm (01/01/20 2:32 PM) 72 bpm (01/01/20 12:53 PM) Blood Pressure [90-138/55-84 mm Hg] 123/92mm Hg (01/01/20 3:51 PM) 143/83mm Hg *H* (01/01/20 2:32 PM) 141/88mm Hg *H* (01/01/20 12:53 PM) Respiratory Rate [16-30 br/min] 18 br/min (01/01/20 3:51 PM) 14 br/min *L* (01/01/20 2:32 PM) 15 br/min *L* (01/01/20 12:53 PM) Temperature [96.8-100.4 DegF] 97.4 DegF (01/01/20 3:51 PM) 97.7 DegF (01/01/20 2:32 PM) 97.5 DegF (01/01/20 11:50 AM) Mode of Delivery (Oxygen) Room air (01/01/20 3:51 PM) Room air (01/01/20 2:32 PM) Room air (01/01/20 12:53 PM) Blood pressure sites Arm, right (01/01/20 3:51 PM) Arm, left (01/01/20 2:32 PM) Arm, left (01/01/20 12:53 PM) Temperature Route Oral (01/01/20 3:51 PM) Oral (01/01/20 2:32 PM) Oral (01/01/20 11:50 AM) Social History Social History Type Response Tobacco Other: 3 cigars brenden y. Sex Male
--- OUTSIDE RECORDS SUMMARY | 2023-10-18 20:37 | XMS_ITS | Continuity of Care Document ---
Author Name Unknown Organization [facility] Address [address] [place] [address]- Care Team Providers Care Speech And Hearing Director Name Role Phone Efra Mejia MD Primary Care Physician [phone] Encounter [facility] Date(s): 03/14/22 - 07/12/22 [facility] [address] [place], [place] [address] Attending Physician: Efra Mejia MD Allergies, [...] 23-valent vaccine 8 04/01/12 Given 1Result Comment: [facility]#[id number] 2Result Comment: [07/31/2018] [facility]# [id number] 3Result Comment: [08/26/2015] done at [facility] 4Admin Note: VIM 03/17/12 5Admin Note: VIM 04/10/11 6Admin Note: VIM 08/03/08 7Admin Note: VIS GIVEN 04/10/13 8Admin Note: vis given dated 06/21/09 Medications ARIPiprazole 5 mg oral tablet 5 mg, 1, tablet, By Mouth, Daily, # 90 tablet, Refills 1, Tot. Refills 1, Maintenance, 06/05/22 10:07:00 EDT, Route to Pharmacy Electronically, [facility]/pharmacy #[id number], Partial fill upon patient request if the prescription is for a schedule II opioid drug.... Start Date: 06/05/22 Stop Date: 12/02/22 Status: Ordered citalopram 40 mg oral tablet 40 mg, 1, tablet, By Mouth, Daily, Take with food., # 90 tablet, Refills 1, Tot. Refills 1, Maintenance, 06/05/22 10:06:00 EDT, Route to Pharmacy Electronically, [facility] #[id number], 181.5, cm, 05/08/22 8:39:00 EDT, Height, 105, kg, 09/26/21 3:23:00 ES... Start Date: 06/05/22 Stop Date: 12/02/22 Status: Ordered donepezil 10 mg oral tablet 10 mg, 1, tablet, By Mouth, Daily at bedtime, # 90 tablet, Refills 1, Tot. Refills 1, Maintenance, 05/08/22 9:47:00 EDT, Route to Pharmacy Electronically, [facility]/pharmacy #[id number], Partial fill upon patient request if [...] AM, 0 Refills, Maintenance, 07/14/21 14:22:00 EDT, [place], Partial fill upon patient request if the [...] 03/22/22 15:36:00 EDT, Route to Pharmacy Electronically, [facility]/pharmacy #[id number], Partial fill upon patient request if [...] 2 Refills, Maintenance, 03/22/22 13:10:00 EDT, Tablet, [facility]/pharmacy #[id number], 181.5, cm, 09/28/21 12:39:00 EST, Height, 105, kg, 09/26/21 3:23:00 EST, Dry Weight Start Date: 03/22/22 Stop Date: 06/20/22 Status: Ordered lidocaine-prilocaine 2.5%-2.5% topical cream = 15 Gm, Topically, Once, Apply small amount to area of injection site one hour prior to injection,# 15 Gm, 0 Refills, Soft Stop, 06/05/22 10:10:00 EDT, [id number], Partial fill upon patientrequest if the [...] Start Date: 07/13/21 Status: Ordered nystatin topical 704069 u/gm powder See Instructions, apply to stump 3 x day, # 120 Gm, 5 Refills, Maintenance, 07/06/21 12:35:00 EDT, Powder, [facility]/pharmacy #[id number], Partial fill upon patient request if the prescription is for a schedule II opioid drug., apply to stump 3 x day, 180, cm,... Start Date: 07/06/21 Status: Ordered omeprazole 20 mg oral enteric coated capsule 1 capsule = 20 mg, By Mouth, Daily, # 30 capsule, 2 Refills, Maintenance, 03/22/22 13:10:00 EDT, ECCapsule, [id number], 181.5, cm, 09/28/21 12:39:00 EST, Height, 105, kg, 09/26/21 3:23:00 EST, Dry Weight Start Date: 03/22/22 Status: Ordered prazosin 2 mg oral capsule 1 capsule = 2 mg, By Mouth, Daily at bedtime, # 90 capsule, 1 Refills, Maintenance, 06/05/22 10:07:00 EDT, Capsule, [id number], Partial fill upon patient request if the prescription is for a schedule II opioid drug., 181.5, cm, 05/08/22 8:39:0... Start Date: 06/05/22 Stop Date: 12/02/22 Status: Ordered ramelteon 8 mg oral tablet 1 tablet = 8 mg, By Mouth, Daily at bedtime, # 90 tablet, 1 Refills, Maintenance, 06/05/22 10:07:00EDT, Tablet, [facility]/pharmacy #[id number], Partial fill upon patient request if the prescription is for a schedule II opioid drug., 181.5, cm, 05/08/22 8:39:00 E... Start Date: 06/05/22 Stop Date: 12/02/22 Status: Ordered Sublocade 300 mg/1.5 mL subcutaneous solution, extended release = 300 mg, Subcutaneous Infusion, Every 28 days, [id number], # 1 kit, 0 Refills, Maintenance, 06/05/22 10:09:00 EDT, [facility]/pharmacy #[id number], Partial fill upon patient request if the prescription is for a schedule II opioid drug., 181.5, cm, 05/08/22 8:39:00... Start Date: 06/05/22 Stop Date: 06/06/22 Status: Ordered Suboxone 8 mg-2 mg Sublingual Film See Instructions, 1.5 films sublingual in AM, 1 film sublingual in PM dissolve under the tongue, # 75 film, 0 Refills, Maintenance, 07/06/22 11:40:00 EDT, [facility]/pharmacy #[id number], Partial fill upon patient request if the prescription is for a schedule II... Start Date: 07/06/22 Status: Ordered tamsulosin 0.4 mg oral capsule 0.4 mg, 1, capsule, By Mouth, Daily, # 90 capsule, Refills 3, Tot. Refills 3, Maintenance, 07/06/2111:55:00 EDT, Route to Pharmacy Electronically, [facility]/pharmacy #[id number], Partial fill upon patient request if the prescription is for a schedule II opioid d... Start Date: 07/06/21 Status: Ordered Trulicity Pen 0.75 mg/0.5 mL subcutaneous solution 0.5 mL = 0.75 mg, Subcutaneous Injection, Every week, rotate injection sites, # 2 mL, 5 Refills, Maintenance, 10/05/21 11:20:00 EST, Solution, [facility]/pharmacy #[id number], Partial fill upon patient request ifthe prescription is for a schedule II opioid drug.,... Start Date: 1/20/22 Status: Ordered Problem List Condition Confirmation Course [...] Name: Roberto CH, Efra Miramontes Address: Address: [address] [place] [address]
--- OUTSIDE RECORDS SUMMARY | 2023-10-18 20:37 | XMS_ITS | Continuity of Care Document ---
Author Name Unknown Organization [facility] ter Address [address] [place] [address]- Care Team Providers Care Sales Mgr Name Role Phone Roberto CH, Efra Miramontes Primary Care Physician [phone] [facility]counter [facility] Date(s): 10/22/19 - 10/22/[address] [address]- [facility] Attending Physician: Deniz CH, Robel Reeves Allergies, Adverse Reactions, Alerts Substance Reaction Severity [...] Given 1Result Comment: [07/31/2018] [facility]# [id number] 2Result Comment: [08/26/2015] done at [facility] 3Admin Note: VIM 03/17/12 4Admin Note: VIM [...] Maintenance, 07/02/16 16:06:12, Route to Pharmacy Electronically, [id number], [facility] #[facility] Start Date: [...] 5 Refills, Maintenance, 10/22/19 10:55:00 EST, Tablet, [facility]/pharmacy #[id number], 180.3, cm, 10/22/19 10:14:00 EST, Height, 118.5, kg, 05/12/19 10:33:00 EDT, Dry Weight Start Date: 10/22/19 Status: Ordered ibuprofen 800 mg oral tablet 800 mg, 1, tablet, By Mouth, Every 8 hours, PRN, # 90 tablet, Refills 0, Tot. Refills 0, Maintenance, as needed for pain, 04/10/19 17:13:55 EDT, Route to Pharmacy Electronically, [id number], [facility] #[facility] Start Date: [...] 1 Refills, Maintenance, 10/08/19 16:20:00 EST, Solution, [facility]/pharmacy #[id number], 180, cm, 10/08/19 15:20:00 EST, [...] 01/20/18 13:36:03 EDT, Route to Pharmacy Electronically, [id number], [facility] #[facility] Start Date: [...] Weight Start Date: 08/27/19 Status: Ordered Pen [place], 29 G x 12.7 mm BD Ultra [...]
--- OUTSIDE RECORDS SUMMARY | 2023-10-18 20:37 | XMS_ITS | Continuity of Care Document ---
Author Name Unknown Organization [facility] Address [address] [facility], [address], [address] [place] [address]- Care Team Providers Care Water Fitness Instructor Name Role Phone fEra Mejia MD Primary Care Physician [phone] [place] [facility] [place]s): 04/16/23 - 05/16/23 [facility] [address], [address], [address] [place] [address] Attending Physician: Bobby Sandoval Admitting Physician: AdmtrBobby Referring Physician: Admtr, Ar8 Allergies, Adverse Reactions, Alerts No Known Allergies Immunizations Given and Recorded Vaccine Date Status Refusal Reason SARS-CoV-2 mRNA ([id number]) vax 04/27/22 Recorded influenza virus vaccine, inactivated [...] 23-valent vaccine 8 04/01/12 Given 1Result Comment: [facility]#[id number] 2Result Comment: [07/31/2018] [facility]# [id number] 3Result Comment: [08/26/2015] done at [facility] 4Admin Note: VIM 03/17/12 5Admin Note: VIM 04/10/11 6Admin Note: VIM 08/03/08 7Admin Note: VIS GIVEN 04/10/13 8Admin Note: vis given dated 06/21/09 Medications ARIPiprazole 5 mg oral tablet 5 mg, 1, tablet, By Mouth, Daily, # 90 tablet, Refills 1, Tot. Refills 1, Maintenance, 03/01/23 10:12:00 EDT, Route to Pharmacy Electronically, [facility]/pharmacy #[id number], Partial fill upon patient [...] 10/11/22 12:01:00 EST, Route to Pharmacy Electronically, [facility]/pharmacy #[id number], Partial fill upon patient [...] AM, 0 Refills, Maintenance, 07/14/21 14:22:00 EDT, [place], Partial fill upon patient request if the [...] 03/27/23 17:30:00 EDT, Route to Pharmacy Electronically, [facility]/pharmacy #[id number], override needed for lost prescription, thanks., 181.5, cm, 03/07/23 10:11:0... Start Date: 03/27/23 Status: Ordered levothyroxine 0.112 mg oral tablet 2 tablet = 224 mcg, By Mouth, Daily, # 60 tablet, 2 Refills, Maintenance, 03/27/23 12:47:00 EDT, Tablet, [facility]/pharmacy #[id number], 181.5, cm, 03/07/23 10:11:00 EDT, [...] Start Date: 07/13/21 Status: Ordered nystatin topical 823333 u/gm powder See Instructions, apply to stump 3 x day, # 120 Gm, 5 Refills, Maintenance, 04/23/23 15:43:00 EDT, Powder, [id number], Partial fill upon patient request if the prescription is for a schedule II opioid drug., apply to stump 3 x day, 181.5, cm... Start Date: 04/23/23 Status: Ordered nystatin topical 842718 u/gm powder See Instructions, apply to stump [...] in AM, 1 film sublingual in PM [id number], # 75 film, 1 Refills, Maintenance, 04/26/23 8:11:00 EDT, [facility]/pharmacy #[id number], 1.5 films sublingual in AM, 1 film sublingual in PM ; [id number], 181.5, cm, 04/23/23 15:02:... Start Date: 04/26/23 Status: Ordered tamsulosin 0.4 mg oral capsule 0.4 mg, 1, capsule, By Mouth, Daily, # 90 capsule, Refills 3, Tot. Refills 3, Maintenance, 12/20/2315:00:00 EDT, Route to Pharmacy Electronically, [facility]/pharmacy #[id number], Partial fill upon patient [...] Care Nurse Name: Jaleel Lo RN Position: [facility] RN Member Role: Primary Care Nurse Name: Ivy Smith RN Position: [facility] RN Member Role: Primary Care Nurse Name: Efra Mejia MD Position: [facility] Physician - Primary Care Member Role: PCP Address: Address: [address] [place] [address] Name: Devorah Johnson RN Position: [place] [...] Care Nurse Name: Michelle Akbar [place] Position: [facility] RN Member Role: Primary Care Nurse Name: Saundra Gonzalez Position: [facility] RN Member Role: Primary Care Nurse Name: Sofía Moreno RN Position: [facility] RN Member Role: Primary Care Nurse [facility] RN Position: [facility] RN Member Role: Primary Care Nurse Name: Sophia Lomas RN Position: [facility] RN Member Role: Primary Care Nurse Name: Danielito Woo RN Position: [facility] Grain Spouter Member Role: Primary Care Nurse Care Team Related Persons Name: TINY STEPHENS Address: [address] [place], [place] Name: FERNIE CUMMINS Address: home [address] [place], [place] Name: TINY CUMMINS Address: home [address] [place], [place]
--- OUTSIDE RECORDS SUMMARY | 2023-10-18 20:37 | XMS_ITS | Continuity of Care Document ---
Author Name Unknown Organization [facility] Address [address] [place] [address]- Care Team Providers Care Motor Express Clerk Name Role Phone Roberto CH, Efra Miramontes Primary Care Physician [place] [facility] [place]): 10/06/21 - 10/07/[address] [address]- Encounter Diagnosis Weakness(Final) - 10/07/21 Unable to ambulate(Final) - 10/07/21 Discharge Disposition: A-D/C Home Attending Physician: Jean Pierre Todd MD Admitting Physician: Jean Pierre Todd MD Referring Physician: Not on Staff, Referring [...] 23-valent vaccine 8 04/01/12 Given 1Result Comment: [facility]#[id number] 2Result Comment: [07/31/2018] [facility]# [id number] 3Result Comment: [08/26/2015] done at [facility] 4Admin Note: VIM 03/17/12 5Admin Note: VIM 04/10/11 6Admin Note: VIM 08/03/08 7Admin Note: VIS GIVEN 04/10/13 8Admin Note: vis given dated 06/21/09 Medications donepezil 5 mg oral tablet 5 mg, 1, tablet, By Mouth, Daily, # 30 tablet, Refills 5, Tot. Refills 5, Maintenance, 06/02/21 14:20:00 EDT, Route to Pharmacy Electronically, [facility]/pharmacy #[id number], Partial fill upon patient request if the [...] AM, 0 Refills, Maintenance, 07/14/21 14:22:00 EDT, [place], Partial fill upon patient request if the [...] oral capsule 400 mg, Capsule, By Mouth, 10/07/21 9:00:00 EST Start Date: 10/07/21 Stop Date: 10/07/21 Status: Completed gabapentin 400 mg oral capsule 400 mg, 1, capsule, By Mouth, 2 times a day, # 60 capsule, Refills 2, Tot. Refills 2, Maintenance, 08/31/21 11:39:00 EST, Route to Pharmacy Electronically, [facility]/pharmacy #[id number], Partial fill upon patient request if [...] 5 Refills, Maintenance, 10/27/20 10:22:00 EST, Tablet, [facility]/pharmacy #0693, 183, cm, 10/27/20 8:41:00 EST, Height, [...] Start Date: 07/13/21 Status: Ordered nystatin topical 971244 u/gm powder See Instructions, apply to stump 3 x day, # 120 Gm, 5 Refills, Maintenance, 07/06/21 12:35:00 EDT, Powder, [facility]/pharmacy #0693, Partial fill upon patient request if the prescription is for a schedule II opioid drug., apply to stump 3 x day, 180, cm,... Start Date: 07/06/21 Status: Ordered omeprazole 20 mg oral enteric coated capsule 1 capsule = 20 mg, By Mouth, Daily, # 30 capsule, 5 Refills, Maintenance, 10/27/20 10:22:00 EST, ECCapsule, [facility]/pharmacy #0693, 183, cm, 10/27/20 8:41:00 EST, Height, 119, kg, 09/23/20 17:06:00 EST,Dry Weight Start Date: 10/27/20 Status: Ordered tamsulosin 0.4 mg oral capsule 0.4 mg, 1, capsule, By Mouth, Daily, # 90 capsule, Refills 3, Tot. Refills 3, Maintenance, 07/06/2111:55:00 EDT, Route to Pharmacy Electronically, [facility]/pharmacy #[id number], Partial fill upon patient request if the prescription is for a schedule II opioid d... Start Date: 07/06/21 Status: Ordered Trulicity Pen 0.75 mg/0.5 mL subcutaneous solution 0.5 mL = 0.75 mg, Subcutaneous Injection, Every week, rotate injection sites, # 2 mL, 5 Refills, Maintenance, 10/05/21 11:20:00 EST, Solution, [facility]/pharmacy #[id number], Partial fill upon patient request ifthe [...] for Microbiology Reports Name Date Blood Culture 10/06/21 Blood Culture #2 10/06/21 Microbiology Reports TEST:Blood Culture, Second Order STATUS:Unauthenticated BODY SITE: SOURCE:Blood COLLECTED DATE/TIME:10/06/21 6:13 PM Blood Culture, Second Order SPECIMEN DESCRIPTION : BLOOD LAC SPECIAL REQUESTS : NONE CULTURE : NO GROWTH AFTER 24 HOURS REPORT STATUS : PRELIMINARY REPORT TEST:Blood Culture STATUS:Unauthenticated BODY SITE: SOURCE:Blood COLLECTED DATE/TIME:10/06/21 6:00 PM Blood Culture SPECIMEN DESCRIPTION : BLOOD NO SITE SPECIAL REQUESTS : NONE CULTURE : NO GROWTH AFTER 24 HOURS REPORT STATUS : PRELIMINARY REPORT Vital Signs Most recent to oldest [Reference Range]: 1 2 3 Oxygen Saturation [94-100 %] 98 % (10/07/21 2:38 PM) 97 % (10/07/21 1:11 PM) 96 % (10/07/21 7:53 AM) Pulse Rate [55-90 bpm] 61 bpm (10/07/21 2:38 PM) 58 bpm (10/07/21 1:11 PM) 60 bpm (10/07/21 7:53 AM) Blood Pressure [90-138/55-84 mm Hg] 153/69mm Hg *H* (10/07/21 2:38 PM) 123/59mm Hg (10/07/21 1:11 PM) 138/63mm Hg (10/07/21 7:53 AM) Respiratory Rate [16-30 br/min] 16 br/min (10/07/21 2:38 PM) 18 br/min (10/07/21 1:11 PM) 20 br/min (10/07/21 8:07 AM) Temperature [96.8-100.4 DegF] 97.9 DegF (10/07/21 2:38 PM) 97.8 DegF (10/07/21 1:11 PM) 98.2 DegF (10/07/21 7:53 AM) Mode of Delivery (Oxygen) Room air (10/07/21 2:38 PM) Room air (10/07/21 1:11 PM) Room air (10/07/21 7:53 AM) Blood pressure sites Arm, left (10/07/21 2:38 PM) Arm, left (10/07/21 5:41 AM) Arm, left (10/07/21 1:23 AM) Temperature Route Oral (10/07/21 2:38 PM) Oral (10/07/21 1:11 PM) Oral (10/07/21 7:53 AM) Social History Social History Type Response Tobacco Other: 3 cigars brenden y. Sex
--- OUTSIDE RECORDS SUMMARY | 2023-10-18 20:37 | XMS_ITS | Continuity of Care Document ---
Author Name Unknown Organization [facility] Address [address] [place] [address]- Care Team Providers Care Chemical Detection Expert Name Role Phone Roberto CH, Efra Miramontes Primary Care Physician [facility] Date([place]): 09/14/22 - 10/14/22 [facility] [address] [place], [place] [address] Allergies, Adverse Reactions, Alerts No [...] Given 1Result Comment: [facility]#[id number] 2Result Comment: [07/31/2018] [facility]# [id number] 3Result Comment: [08/26/2015] done at [facility] 4Admin Note: VIM 03/17/12 5Admin Note: VIM 04/10/11 6Admin Note: VIM 08/03/08 7Admin Note: VIS GIVEN 04/10/13 8Admin Note: vis given dated 06/21/09 Medications ARIPiprazole 5 mg oral tablet 5 mg, 1, tablet, By Mouth, Daily, # 90 tablet, Refills 1, Tot. Refills 1, Maintenance, 09/28/22 8:16:00 EST, Route to Pharmacy Electronically, [facility]/pharmacy #[id number], Partial fill upon patient request ifthe prescription is for a schedule II opioid drug.,... Start Date: 09/28/22 Stop Date: 03/27/23 Status: Ordered citalopram 40 mg oral tablet 40 mg, 1, tablet, By Mouth, Daily, Take with food., # 90 tablet, Refills 1, Tot. Refills 1, Maintenance, 09/28/22 8:16:00 EST, Route to Pharmacy Electronically, [facility]/pharmacy #[id number], 181.5, cm, 08/30/22 16:11:00 EST, Height, 105, kg, 09/26/21 3:23:00 ES... Start Date: 09/28/22 Stop Date: 03/27/23 Status: Ordered donepezil 10 mg oral tablet 10 mg, 1, tablet, By Mouth, Daily at bedtime, # 90 tablet, Refills 2, Tot. Refills 2, Maintenance, 10/11/22 12:01:00 EST, Route to Pharmacy Electronically, [facility]/pharmacy #[id number], Partial fill upon patient request [...] AM, 0 Refills, Maintenance, 07/14/21 14:22:00 EDT, [place], Partial fill upon patient request if the [...] 09/17/22 12:54:00 EST, Route to Pharmacy Electronically, [facility]/pharmacy #[id number], Partial fill upon patient request if the prescription is for a schedule II... Start Date: 09/17/22 Status: Ordered levothyroxine 0.112 mg oral tablet 2 tablet = 224 mcg, By Mouth, Daily, # 60 tablet, 2 Refills, Maintenance, 09/05/22 12:50:00 EST, Tablet, [facility]/pharmacy #[id number], 181.5, cm, 08/30/22 16:11:00 EST, [...] Start Date: 07/13/21 Status: Ordered nystatin topical 208866 u/gm powder See Instructions, apply to stump 3 x day, # 120 Gm, 5 Refills, Maintenance, 07/06/21 12:35:00 EDT, Powder, [facility]/pharmacy #[id number], Partial fill upon patient request if the prescription is for a schedule II opioid drug., apply to stump 3 x day, 180, cm,... Start Date: 07/06/21 Status: Ordered omeprazole 20 mg oral enteric coated capsule 1 capsule = 20 mg, By Mouth, Daily, # 30 capsule, 0 Refills, Maintenance, 08/28/22 13:07:00 EST, ECCapsule, [facility]/pharmacy #[id number], 181.5, cm, 05/08/22 8:39:00 EDT, Height, 105, kg, 09/26/21 3:23:00 EST, Dry Weight Start Date: 08/28/22 Status: Ordered prazosin 2 mg oral capsule 2 capsule = 4 mg, By Mouth, Daily at bedtime, dose increase, # 180 capsule, 1 Refills, Maintenance,09/28/22 8:17:00 EST, Capsule, [facility]/pharmacy #[id number], Partial fill upon patient request if the prescription is for a schedule II opioid drug., 181.5, cm,... Start Date: 09/28/22 Stop Date: 03/27/23 Status: Ordered ramelteon 8 mg oral tablet 1 tablet = 8 mg, By Mouth, Daily at bedtime, # 90 tablet, 1 Refills, Maintenance, 09/28/22 8:16:00 EST, Tablet, [facility]/pharmacy #[id number], Partial fill upon patient request if the prescription is for a schedule II opioid drug., 181.5, cm, 08/30/22 16:11:00 E... Start Date: 09/28/22 Stop Date: 03/27/23 Status: Ordered Suboxone 8 mg-2 mg Sublingual Film See Instructions, 1.5 films sublingual in AM, 1 film sublingual in PM [id number], # 75 film, 1 Refills, Maintenance, 09/28/22 8:16:00 EST, [facility]/pharmacy #[id number], 1.5 films sublingual in AM, 1 film sublingual in PM ; [id number], 181.5, cm, 08/30/22 16:11:... Start Date: 09/28/22 Status: Ordered tamsulosin 0.4 mg oral capsule 0.4 mg, 1, capsule, By Mouth, Daily, # 90 capsule, Refills 3, Tot. Refills 3, Maintenance, 07/06/2111:55:00 EDT, Route to Pharmacy Electronically, [facility]/pharmacy #[id number], Partial fill upon patient request [...] Team Personnel Name: Alka Lee RN Position: [facility] RN Member Role: Primary Care Nurse Name: Jaleel Lo RN Position: [facility] RN Member Role: Primary Care Nurse Name: Ivy Smith RN Position: [facility] RN Member Role: Primary Care Nurse Name: Efra Mejia MD Position: [facility] Primary Care Physician Member Role: PCP Address: Address: [address] [place] [address] Name: Devorah Johnson RN Position: [facility] RN Member Role: Primary Care Nurse Name: Dustin Chavez RN Position: [facility] RN Member Role: Primary Care Nurse Name: Litzy Weinberg RN Position: [facility] RN Member Role: Primary Care Nurse Name: Melanie Garay Position: [facility] RN Member Role: Primary Care Nurse Name: Yoselyn Patrick RN Position: [facility] RN Member Role: Primary Care Nurse Name: Michelle Buckley Position: [facility] RN Member Role: Primary Care Nurse Name: Saundra Gonzalez Position: [facility] RN Member Role: Primary Care Nurse Name: Sofía Moreno RN Position: [facility] RN Member Role: Primary Care Nurse Name: Sary Tong RN Position: [facility] RN Member Role: Primary Care Nurse Name: Sophia oLmas RN Position: [facility] RN Member Role: Primary Care Nurse Name: Danielito Woo RN Position: [facility] Member Role: Primary Care Nurse Care Team Related Persons Name: ANGELOBEANTINY Address: [address] [place], [place] Name: FERNIE CUMMINS Address: [address] [place], [place] Name: TINY CUMMINS Address: home [address] [facility] [place] [address]
--- OUTSIDE RECORDS SUMMARY | 2023-10-18 20:37 | XMS_ITS | Continuity of Care Document ---
Author Name Unknown Organization [facility] Address [address] [place] [id number]- Care Team Providers Care Tobacco Blender Name Role Phone Roberto CH, Efra Miramontes Primary Care Physician Encounter [facility] Date(s): 10/20/19 - 10/30/19 [facility] [address] [place] [id number] [facility] Attending Physician: AdmBobby mckeon Admitting Physician: AdmBobby mckeon Referring Physician: Admtr, Ar8 Allergies, Adverse Reactions, [...] acel(Tdap) 7 03/05/11 Given 1Result Comment: [07/31/2018] [facility]# [id number] 2Result Comment: [08/26/2015] done at [facility] [...] Maintenance, 07/02/16 16:06:12, Route to Pharmacy Electronically, [id number], [facility] Start Date: [...] 5 Refills, Maintenance, 10/22/19 10:55:00 EST, Tablet, [id number], 180.3, cm, 10/22/19 10:14:00 EST, Height, 118.5, kg, 05/12/19 10:33:00 EDT, Dry Weight Start Date: 10/22/19 Status: Ordered ibuprofen 800 mg oral tablet 800 mg, 1, tablet, By Mouth, Every 8 hours, PRN, # 90 tablet, Refills 0, Tot. Refills 0, Maintenance, as needed for pain, 04/10/19 17:13:55 EDT, Route to Pharmacy Electronically, [id number], [facility] #[facility] Start Date: [...] Refills, Maintenance, 10/08/19 16:20:00 EST, Solution, [facility]/pharmacy #[id number], 180, cm, 10/08/19 15:20:00 EST, [...] 01/20/18 13:36:03 EDT, Route to Pharmacy Electronically, [id number], [facility] #[facility] Start Date: [...] Weight Start Date: 08/27/19 Status: Ordered Pen [place], 29 G x 12.7 mm BD Ultra [...]
--- OUTSIDE RECORDS SUMMARY | 2023-10-18 20:37 | XMS_ITS | Continuity of Care Document ---
Author Name Unknown Organization [facility] Address [address] [place] [address]- Care Team Providers Care Service Supervisor Name Role Phone Efra Mejia MD Primary Care Physician Encounter [facility] Date(s): 05/28/23 - 07/04/23 [facility] [address] [place] [address]- Attending Physician: Efra Mejia MD Allergies, Adverse Reactions, Alerts No Known Allergies Immunizations Given and Recorded Vaccine Date Status Refusal Reason SARS-CoV-2 mRNA ([id number]) vax 04/27/22 Recorded influenza virus vaccine, inactivated 1 07/06/21 Gi raheem influenza virus vaccine, inactivated 06/21/20 Give n influenza virus vaccine, inactivated 2 07/31/18 Gi arheem influenza virus vaccine, inactivated 07/05/16 Give n [...] Comment: [facility]#[id number] 2Result Comment: [07/31/2018] [facility]# [id number] 3Result Comment: [08/26/2015] done at [facility] 4Admin Note: VIM 03/17/12 5Admin Note: VIM 04/10/11 6Admin Note: VIM 08/03/08 7Admin Note: VIS GIVEN 04/10/13 8Admin Note: vis given dated 06/21/09 Medications ARIPiprazole 5 mg oral tablet 5 mg, 1, tablet, By Mouth, Daily, # 90 tablet, Refills 1, Tot. Refills 1, Maintenance, 03/01/23 10:12:00 EDT, Route to Pharmacy Electronically, [facility]/pharmacy #[id number], Partial fill upon patient request if the prescription is for a schedule II opioid drug.... Start Date: 03/01/23 Stop Date: 08/28/23 Status: Ordered ciclopirox 0.77% topical cream See [...] 06/25/23 10:14:00 EDT, Route to Pharmacy Electronically, [facility]/pharmacy #[id number], 181.5, cm, 06/06/23 16:27:00 EDT, Height, 103, kg, 10/26/22 11:39:00... Start Date: 06/25/23 Stop Date: 12/22/23 Status: Ordered donepezil 10 mg oral tablet 10 mg, 1, tablet, By Mouth, Daily at bedtime, # 90 tablet, Refills 2, Tot. Refills 2, Maintenance, 10/11/22 12:01:00 EST, Route to Pharmacy Electronically, [facility]/pharmacy #[id number], Partial fill upon patient request if [...] AM, 0 Refills, Maintenance, 07/14/21 14:22:00 EDT, [place], Partial fill upon patient request if the [...] EDT, Route to Pharmacy Electronically, [facility]/pharmacy #[id number], override needed for lost prescription, thanks., 181.5, cm, 03/07/23 10:11:0... Start Date: 03/27/23 Status: Ordered levothyroxine 0.112 mg oral tablet 2 tablet = 224 mcg, By Mouth, Daily, # 60 tablet, 2 Refills, Maintenance, 03/27/23 12:47:00 EDT, Tablet, [facility]/pharmacy #[id number], 181.5, cm, 03/07/23 10:11:00 EDT, Height, [...] Start Date: 07/13/21 Status: Ordered nystatin topical 261089 u/gm powder See Instructions, apply to stump 3 x day, # 120 Gm, 5 Refills, Maintenance, 04/23/23 15:43:00 EDT, Powder, [id number], Partial fill upon patient request if the prescription is for a schedule II opioid drug., apply to stump 3 x day, 181.5, cm... Start Date: 04/23/23 Status: Ordered nystatin topical 597894 u/gm powder See Instructions, apply to stump [...] film, 0 Refills, Maintenance, 06/25/23 10:13:00 EDT, [facility]/pharmacy #[id number], [id number], 1.5 films sublingual in AM, 1 film sublingual in PM, 181.5, cm, 06/06/23 16:27:00 EDT, Angie... Start Date: 06/25/23 Status: Ordered tamsulosin 0.4 mg oral capsule 0.4 mg, 1, capsule, By Mouth, Daily, # 90 capsule, Refills 3, Tot. Refills 3, Maintenance, 12/20/2315:00:00 EDT, Route to Pharmacy Electronically, [facility]/pharmacy #[id number], Partial fill upon patient request if the [...] Team Personnel Name: Cayla Herrera RN Position: [facility] ED RN W/OE and Tasks Member Role: Primary Care Nurse Name: Alka Lee RN Position: [facility] SN RN Member Role: Primary Care Nurse Name: Jaleel Lo RN Position: [facility] RN Member Role: Primary Care Nurse Name: Ivy Smith RN Position: [facility] RN Member Role: Primary Care Nurse Name: Efra Mejia MD Position: [facility] Physician - Primary Care Member Role: PCP Address: Address: [address] [place] [id number] Name: Devorah Johnson RN Position: [facility] RN Member Role: Primary Care Nurse Name: Dustin Chavez RN Position: [facility] RN Member Role: Primary Care Nurse Name: Litzy Weinberg RN Position: [facility] RN Member Role: Primary Care Nurse Name: Melanie Garay Position: [facility] RN Member Role: Primary Care Nurse Name: Yoselyn Patrick RN Position: [facility] RN Member Role: Primary Care Nurse Name: Michelle Akbar [place] Position: [facility] RN Member Role: Primary Care Nurse Name: Saundra Gonzalez Position: [facility] RN Member Role: Primary Care Nurse Name: Sofía Moreno RN Position: [facility] RN Member Role: Primary Care Nurse Name: Sary Tong RN Position: [facility] RN Member Role: Primary Care Nurse Name: Danielito Woo RN Position: [facility] Hospital Shank Faker Member Role: Primary Care Nurse Care Team Related Persons Name: TINY STEPHENS Address: home [address] [place], [place] Name: FERNIE CUMMINS Address: [address] [place], [place] Name: TINY CUMMINS Address: home [address] [place], [place]
--- OUTSIDE RECORDS SUMMARY | 2023-10-18 20:38 | XMS_ITS | Continuity of Care Document ---
Author Name Unknown Organization [facility] Address [address] [place] [address]- Care Team Providers Care Mental Health Professional Name Role Phone Roberto CH, Efra Miramontes Primary Care Physician [phone] Encounter [facility] Date(s): 01/22/23 - 02/21/[address] [address]- Allergies, Adverse Reactions, Alerts No Known Allergies Immunizations Given and Recorded Vaccine Date Status Refusal Reason SARS-CoV-2 mRNA ([id number]) vax 04/27/22 Recorded influenza virus vaccine, inactivated [...] Given 1Result Comment: [facility]#[id number] 2Result Comment: [07/31/2018] [facility]# [id number] 3Result Comment: [08/26/2015] done at [facility] 4Admin Note: VIM 03/17/12 5Admin Note: VIM 04/10/11 6Admin Note: VIM 08/03/08 7Admin Note: VIS GIVEN 04/10/13 8Admin Note: vis given dated 06/21/09 Medications ARIPiprazole 5 mg oral tablet 5 mg, 1, tablet, By Mouth, Daily, # 90 tablet, Refills 1, Tot. Refills 1, Maintenance, 09/28/22 8:16:00 EST, Route to Pharmacy Electronically, [facility]/pharmacy #[id number], Partial fill upon patient request ifthe prescription is for a schedule II opioid drug.,... Start Date: 09/28/22 Stop Date: 03/27/23 Status: Ordered citalopram 40 mg oral tablet 40 mg, 1, tablet, By Mouth, Daily, Take with food., # 90 tablet, Refills 1, Tot. Refills 1, Maintenance, 09/28/22 8:16:00 EST, Route to Pharmacy Electronically, [facility]/pharmacy #[id number], 181.5, cm, 08/30/22 16:11:00 EST, Height, 105, kg, 09/26/21 3:23:00 ES... Start Date: 09/28/22 Stop Date: 03/27/23 Status: Ordered donepezil 10 mg oral tablet 10 mg, 1, tablet, By Mouth, Daily at bedtime, # 90 tablet, Refills 2, Tot. Refills 2, Maintenance, 10/11/22 12:01:00 EST, Route to Pharmacy Electronically, [facility]/pharmacy #[id number], Partial fill upon patient request if [...] 03/19/23 17:50:00 EDT, 02/19/23 17:50:00 EDT, Tablet, [facility]/pharmacy #[id number], Partial fill upon patient request if the prescription is for a schedule II opioid drug., 181.5... Start Date: 02/19/23 Stop Date: 03/19/23 Status: Ordered fluticasone 50 mcg/inh nasal spray 2 sprays, Nares, Both, Daily in AM, 0 Refills, Maintenance, 07/14/21 14:22:00 EDT, [place], Partial fill upon patient request if [...] 01/30/23 16:37:00 EDT, Route to Pharmacy Electronically, [facility]/pharmacy #[id number], override needed for lost prescription, thanks., 181.5, cm, 10/26/22 11:39:0... Start Date: 01/30/23 Status: Ordered levothyroxine 0.112 mg oral tablet 2 tablet = 224 mcg, By Mouth, Daily, # 60 tablet, 2 Refills, Maintenance, 12/19/22 16:00:00 EDT, Tablet, [facility]/pharmacy #0693, 181.5, cm, 10/26/22 11:39:00 EST, Height, [...] Start Date: 07/13/21 Status: Ordered nystatin topical 463636 u/gm powder See Instructions, apply to stump [...] in AM, 1 film sublingual in PM [id number], # 75 film, 1 Refills, Maintenance, 12/18/22 8:06:00 EDT, [facility]/pharmacy #0693, 1.5 films sublingual in AM, 1 film sublingual in PM ; [id number], 181.5, cm, 10/26/22 11:39:... Start Date: 12/18/22 Status: Ordered tamsulosin 0.4 mg oral capsule 0.4 mg, 1, capsule, By Mouth, Daily, # 90 capsule, Refills 3, Tot. Refills 3, Maintenance, 12/20/2315:00:00 EDT, Route to Pharmacy Electronically, [facility]/pharmacy #[id number], Partial fill upon patient request if [...] Team Personnel Name: Cayla Herrera RN Position: [facility] ED RN W/OE and Tasks Member Role: Primary Care Nurse Name: Alka Lee RN Position: [facility] RN Member Role: Primary Care Nurse Name: Jaleel Lo RN Position: S RN Member Role: Primary Care Nurse Name: Ivy Smith RN Position: [facility] RN Member Role: Primary Care Nurse Name: Efra Mejia MD Position: [facility] Physician - Primary Care Member Role: PCP Address: Address: [address] [place] [id number] Name: Devorah Johnson RN Position: [facility] RN Member Role: Primary Care Nurse Name: Dustin Chavez RN Position: [facility] RN Member Role: Primary Care Nurse Name: Litzy Weinberg RN Position: [facility] RN Member Role: Primary Care Nurse Name: Melanie Garay Position: [facility] RN Member Role: Primary Care Nurse Name: Michelle Akbar [place] Position: [facility] RN Member Role: Primary Care Nurse Name: Saundra Gonzalez Position: [facility] RN Member Role: Primary Care Nurse Name: Sofía Moreno RN Position: [facility] RN Member Role: Primary Care Nurse Name: Sary Tong RN Position: [facility] RN Member Role: Primary Care Nurse Name: Sophia Lomas RN Position: [facility] RN Member Role: Primary Care Nurse Name: Danielito Woo RN Position: [facility] [employer] Member Role: Primary Care Nurse Care Team Related Persons Name: BEAN STEPHENSORES Address: [address] [place], [place] Name: FERNIE CUMMINS Address: [address] [place], [place] Name: TINY CUMMINS Address: home [address] [place], [place]
--- OUTSIDE RECORDS SUMMARY | 2023-10-18 20:38 | XMS_ITS | Continuity of Care Document ---
Author Name Unknown Organization [facility] Address [address] [place] [address]- Care Team Providers Care Support Engineer Name Role Phone Efra Mejia MD Primary Care Physician [facility] Date(s): 07/14/23 - 08/13/23 [facility] [address] [place] [address]- Allergies, Adverse Reactions, Alerts No Known Allergies [...] inactivated 5 08/16/11 Gi raheem SARS-CoV-2 mRNA ([id number]) vax 04/27/22 Recorded zoster vaccine, inactivated 06/11/21 Recorded SARS-CoV-2 (COVID-19) mRNA BNT-162b2 vac 06/11/21 Recorded SARS-CoV-2 (COVID-19) mRNA BNT-162b2 vac 12/04/20 Recorded SARS-CoV-2 (COVID-19) mRNA BNT-162b2 vac 11/13/20 Recorded tetanus/diphtheria/pertussis, acel(Tdap) 05/07/21 Given tetanus/diphtheria/pertussis, acel(Tdap) 6 03/05/11 Given Influenza Virus Vaccine (oldterm) 06/08/19 Recorde d Fluarix (oldterm) 7 08/19/13 Given pneumococcal 23-valent vaccine 8 04/01/12 Given 1Result Comment: [facility]#[id number] 2Result Comment: [07/31/2018] [facility]# [id number] 3Result Comment: [08/26/2015] done at [facility] 4Admin Note: VIM 03/17/12 5Admin Note: [...] Pharmacy Electronically, [facility]/pharmacy #[id number], 181.5, cm, 06/06/23 16:27:00 EDT, Height, 103, kg, 10/26/22 11:39:00... Start Date: 06/25/23 Stop Date: 12/22/23 Status: Ordered donepezil 10 mg oral tablet 1, tablet, By Mouth, Daily at bedtime, # 90 tablet, Refills 2, Maintenance, 07/26/23 16:19:00 EST, Route to Pharmacy Electronically, [facility] STORE [id number], 181.5, cm, 07/11/23 11:00:00 EDT, Height, 103, kg, 10/26/22 11:39:00 EST, Dry Weight Start Date: 07/26/23 Status: Ordered famotidine 40 mg oral tablet 1 tablet = 40 mg, By Mouth, Daily at bedtime, # 30 tablet, 0 Refills, Maintenance, 07/11/23 13:01:00 EDT, Tablet, [facility]/pharmacy #[id number], Partial [...] Gm, 0 Refills, Maintenance, 07/11/23 13:02:00 EDT, Pitcher, [facility]/pharmacy #[id number], Partial fill upon patient request if the prescription is for a schedule II opioid drug., 2 sprays Nares, Both Daily, 181.5, cm, 07/11/23 1... Start Date: 07/11/23 Status: Ordered fluticasone 50 mcg/inh nasal spray 2 sprays, Nares, Both, Daily in AM, 0 Refills, Maintenance, 07/14/21 14:22:00 EDT, Pitcher, Partial fill upon patient request if the [...] Pharmacy Electronically, [facility]/pharmacy #[id number], override needed for lost prescription, thanks., 181.5, cm, 03/07/23 10:11:0... Start Date: 03/27/23 Status: Ordered levothyroxine 0.2 mg oral tablet 1 tablet = 200 mcg, By Mouth, Daily, # 30 tablet, 5 Refills, Maintenance, 07/14/23 18:02:00 EDT, Tablet, [facility]/pharmacy #[id number], dose reduction, 181.5, cm, 07/11/23 11:00:00 [...] Start Date: 07/13/21 Status: Ordered nystatin topical 908775 u/gm powder See Instructions, apply to stump 3 x day, # 120 Gm, 5 Refills, Maintenance, 04/23/23 15:43:00 EDT, Powder, [facility]/pharmacy #[id number], Partial fill upon patient request if the prescription is for a schedule II opioid drug., apply to stump 3 x day, 181.5, cm... Start Date: 04/23/23 Status: Ordered nystatin topical 231345 u/gm powder See Instructions, apply to stump 3 x day, # 120 Gm, 5 Refills, Maintenance, 07/06/21 12:35:00 EDT, Powder, [facility]/pharmacy #[id number], [...] Refills, Maintenance, 06/25/23 10:13:00 EDT, [id number], [id number], 1.5 films sublingual in AM, 1 film sublingual in PM, 181.5, cm, 06/06/23 16:27:00 EDT, [place]... Start Date: 06/25/23 Status: Ordered tamsulosin 0.4 mg oral capsule 0.4 mg, 1, capsule, By Mouth, Daily, # 90 capsule, Refills 3, Tot. Refills 3, Maintenance, 12/20/2315:00:00 EDT, Route to Pharmacy Electronically, [facility]/pharmacy #[id number], Partial fill upon patient request if the [...] Care Nurse Name: Alka Lee RN Position: [facility] RN Member Role: Primary Care Nurse Name: Jaleel Lo RN Position: [facility] RN Member Role: Primary Care Nurse Name: Ivy Smith RN Position: [facility] RN Member Role: Primary Care Nurse Name: Efra Mejia MD Position: [facility] Physician - Primary Care Member Role: PCP Address: Address: [address] [place] [address] Name: Devorah Johnson RN [facility] [...] Care Nurse Name: Yoselyn Patrick RN Position: [facility] RN Member Role: Primary Care Nurse Name: Michelle Akbar MA Position: [facility] RN Member Role: Primary Care Nurse Name: Saundra Gonzalez Position: [facility] RN Member Role: Primary Care Nurse Name: Sofía Moreno RN Position: [facility] RN Member Role: Primary Care Nurse Name: Sary Tong RN Position: [facility] RN Member Role: Primary Care Nurse Name: Danielito Woo RN Position: [facility] Hospital Information Resources Manager Member Role: Primary Care Nurse Care Team Related Persons Name: TINY STEPHENS Address: home [address] [place] [id number] Name: FERNIE CUMMINS Address: [address] [place] [address] Name: TINY CUMMINS Address: home [address] [place] [id number]
--- OUTSIDE RECORDS SUMMARY | 2023-10-18 20:38 | XMS_ITS | Continuity of Care Document ---
Author Name Unknown Organization [facility] Address [address] [place] [address]- Care Team Providers Care Buildings And Grounds Superintendent Name Role Phone Efra Mejia MD Primary Care Physician [id number] Date(s): 06/06/23 - 07/12/23 [facility] [address] [place] [id number] Attending Physician: Juve Lopez MD Admitting Physician: [...] inactivated 5 08/16/11 Gi raheem SARS-CoV-2 mRNA ([id number]) vax 04/27/22 Recorded zoster vaccine, inactivated 06/11/21 Recorded SARS-CoV-2 (COVID-19) mRNA BNT-162b2 vac 06/11/21 Recorded SARS-CoV-2 (COVID-19) mRNA BNT-162b2 vac 12/04/20 Recorded SARS-CoV-2 (COVID-19) mRNA BNT-162b2 vac 11/13/20 Recorded tetanus/diphtheria/pertussis, acel(Tdap) 05/07/21 Given tetanus/diphtheria/pertussis, acel(Tdap) 6 03/05/11 Given Influenza Virus Vaccine (oldterm) 06/08/19 Recorde d Fluarix (oldterm) 7 08/19/13 Given pneumococcal 23-valent vaccine 8 04/01/12 Given 1Result Comment: [facility]#[id number] 2Result Comment: [07/31/2018] [facility]# [id number] 3Result Comment: [08/26/2015] done at [facility] 4Admin Note: VIM 03/17/12 5Admin Note: VIM 04/10/11 6Admin Note: VIM 08/03/08 7Admin Note: VIS GIVEN 04/10/13 8Admin Note: vis given dated 06/21/09 Medications ARIPiprazole 5 mg oral tablet 5 mg, 1, tablet, By Mouth, Daily, # 90 tablet, Refills 1, Tot. Refills 1, Maintenance, 03/01/23 10:12:00 EDT, Route to Pharmacy Electronically, [facility]/pharmacy #[id number], Partial fill upon patient [...] 08/03/23 9:00:00 EST, 07/03/23 11:29:00 EDT, Cream, [facility]/pharmacy #[id number], Partial fill upon patient request if the prescription is for a schedule II opioid... Start Date: 07/03/23 Stop Date: 08/03/23 Status: Ordered citalopram 40 mg oral tablet 40 mg, 1, tablet, By Mouth, Daily, Take with food., # 90 tablet, Refills 1, Tot. Refills 1, Maintenance, 06/25/23 10:14:00 EDT, Route to Pharmacy Electronically, [facility]/pharmacy #[id number], 181.5, cm, 06/06/23 16:27:00 EDT, Height, 103, kg, 10/26/22 11:39:00... Start Date: 06/25/23 Stop Date: 12/22/23 Status: Ordered donepezil 10 mg oral tablet 10 mg, 1, tablet, By Mouth, Daily at bedtime, # 90 tablet, Refills 2, Tot. Refills 2, Maintenance, 10/11/22 12:01:00 EST, Route to Pharmacy Electronically, [facility]/pharmacy #[id number], Partial fill upon patient request if the prescription is for a schedule II... Start Date: 10/11/22 Stop Date: 07/08/23 Status: Ordered famotidine 40 mg oral tablet 1 tablet = 40 mg, By Mouth, Daily at bedtime, # 30 tablet, 0 Refills, Maintenance, 07/11/23 13:01:00 EDT, Tablet, [facility]/pharmacy #[id number], Partial fill upon patient [...] Gm, 0 Refills, Maintenance, 07/11/23 13:02:00 EDT, [place], [facility]/pharmacy #[id number], Partial fill upon patient request if the prescription is for a schedule II opioid drug., 2 sprays Nares, Both Daily, 181.5, cm, 07/11/23 1... Start Date: 07/11/23 Status: Ordered fluticasone 50 mcg/inh nasal spray 2 sprays, Nares, Both, Daily in AM, 0 Refills, Maintenance, 07/14/21 14:22:00 EDT, [place], Partial fill upon patient request if the [...] 03/27/23 17:30:00 EDT, Route to Pharmacy Electronically, [facility]/pharmacy #[id number], override needed for lost prescription, thanks., 181.5, cm, 03/07/23 10:11:0... Start Date: 03/27/23 Status: Ordered levothyroxine 0.112 mg oral tablet 2 tablet = 224 mcg, By Mouth, Daily, for 30 days, # 60 tablet, 0 Refills, Hard Stop 08/09/23 12:54:00 EST, 07/10/23 12:54:00 EDT, Tablet, [facility]/pharmacy #[id number], 181.5, cm, 06/06/23 16:27:00 EDT, Height,103, kg, 10/26/22 11:39:00 EST, Dry Weight Start Date: 07/10/23 Stop Date: 08/09/23 Status: Ordered levothyroxine 0.112 mg oral tablet 2 tablet = 224 mcg, By Mouth, Daily, # 60 tablet, 0 Refills, Maintenance, 08/09/23 12:54:00 EST, Tablet, [facility]/pharmacy #[id number], 181.5, cm, 06/06/23 16:27:00 EDT, Height, 103, kg, 10/26/22 11:39:00 EST, Dry Weight Start Date: 08/09/23 Stop Date: 09/08/23 Status: Ordered melatonin 5 mg oral tablet 1 tablet = 5 mg, By Mouth, Daily at bedtime, PRN for insomnia, # 60 tablet, 0 Refills, Maintenance,07/13/21 22:12:00 EDT, Tablet, Partial fill upon patient request if the prescription is for a schedule II opioid drug. Start Date: 07/13/21 Status: Ordered nystatin topical 360224 u/gm powder See Instructions, apply to stump 3 x day, # 120 Gm, 5 Refills, Maintenance, 04/23/23 15:43:00 EDT, Powder, [id number], Partial fill upon patient request if the prescription is for a schedule II opioid drug., apply to stump 3 x day, 181.5, cm... Start Date: 04/23/23 Status: Ordered nystatin topical 035794 u/gm powder See Instructions, apply to stump [...] Dry Weight Start Date: 01/30/23 Status: Ordered ondansetron 4 mg oral tablet 1 tablet = 4 mg, By Mouth, Every 8 hours, for 14 days, # 42 tablet, 0 Refills, Acute 07/25/23 12:54:00 EST, 07/11/23 12:54:00 EDT, Tablet, [id number], Partial fill upon patient request if theprescription is for a schedule II opioid drug., 181... Start Date: 07/11/23 Stop Date: 07/25/23 Status: Ordered prazosin 2 mg oral capsule [...] tablet, 1 Refills, Maintenance, 06/25/23 10:14:00EDT, Tablet, [facility]/pharmacy #[id number], Partial fill upon patient [...] film, 0 Refills, Maintenance, 06/25/23 10:13:00 EDT, [facility]/pharmacy #[id number], [id number], 1.5 films sublingual in AM, 1 film sublingual in PM, 181.5, cm, 06/06/23 16:27:00 EDT, Heig... Start Date: 06/25/23 Status: Ordered tamsulosin 0.4 mg oral capsule 0.4 mg, 1, capsule, By Mouth, Daily, # 90 capsule, Refills 3, Tot. Refills 3, Maintenance, 12/20/2315:00:00 EDT, Route to Pharmacy Electronically, [facility]/pharmacy #[id number], Partial fill upon patient request if the prescription is for a schedule II opioid d... Start Date: 12/19/22 Status: Ordered triamcinolone 0.1% topical cream 1 application, Topically, 2 times a day, for 14 days, APPLY TOPICALLY TO AFFECTED AREA(S) TWICE DAILY FOR 14 DAYS, # 60 Gm, 0 Refills, Acute 07/25/23 12:57:00 EST, 07/11/23 12:57:00 EDT, Cream, [facility]/pharmacy #[id number], Partial fill upon patient request if... Start Date: 07/11/23 Stop Date: 07/25/23 Status: Ordered Problem List Condition Confirmation Course [...] Team Personnel Name: Cayla Herrera RN Position: [facility] ED RN W/OE and Tasks Member Role: Primary Care Nurse Name: Alka Lee RN Position: [facility] RN Member Role: Primary Care Nurse Name: Jaleel Lo RN Position: [facility] RN Member Role: Primary Care Nurse Name: Ivy Smith RN Position: [facility] RN Member Role: Primary Care Nurse Name: Efra Mejia MD Position: [facility] Physician - Primary Care Member Role: PCP Address: Address: [address] [place] [address] Name: Devorah Johnson RN Position: [facility] RN Member Role: Primary Care Nurse Name: Dustin Chavez RN Position: [facility] RN Member Role: Primary Care Nurse Name: Litzy Weinberg RN Position: [facility] RN Member Role: Primary Care Nurse Name: Melanie Garay Position: [facility] RN Member Role: Primary Care Nurse Name: Yoselyn Patrick RN Position: [facility] RN Member Role: Primary Care Nurse Name: Michelle Akbar [place] Position: [facility] RN Member Role: Primary Care Nurse Name: Saundra Gonzalez Position: [facility] RN Member Role: Primary Care Nurse Name: Sofía Moreno RN Position: [facility] RN Member Role: Primary Care Nurse Name: Sary Tong RN Position: [facility] RN Member Role: Primary Care Nurse Name: Danielito Woo RN Position: [facility] Top Precipitator Operator Helper Member Role: Primary Care Nurse Care Team Related Persons Name: ANGELO TINY Address: [address] [place] [address] Name: FERNIE CUMMINS Address: [address] [place] [address] Name: TINY CUMMINS Address: [address] [place] [address]
--- OUTSIDE RECORDS SUMMARY | 2023-10-18 20:38 | XMS_ITS | Continuity of Care Document ---
Author Name Unknown Organization [facility] Address [address] [place] [address]- Care Team Providers Care Leather Grainer Name Role Phone Roberto CH, Efra Miramontes Primary Care Physician [facility]counter [facility] Date(s): 03/08/21 - 04/07/21 [facility] [address] [place] [address]- Allergies, Adverse Reactions, Alerts Substance Reaction Severity [...] Comment: [07/31/2018] [facility]# [id number] 2Result Comment: [08/26/2015] done at [facility] [...] Gm, 5 Refills, Maintenance, 12/15/20 12:56:00 EDT, [place], [facility]/pharmacy #[id number], Partial fill upon patient [...] 10/27/20 10:24:00 EST, Route to Pharmacy Electronically, [facility]/pharmacy #[id number], Partial fill upon patient [...] 5 Refills, Maintenance, 10/27/20 10:22:00 EST, Solution, [facility]/pharmacy #[id number], 183, cm, 10/27/20 8:41:00 EST, Height, 119, kg, 09/23/20 17:06:00 EST, Dry Weight Start Date: 10/27/20 Status: Ordered levothyroxine 0.112 mg oral tablet 2 tablet = 224 mcg, By Mouth, Daily, # 60 tablet, 5 Refills, Maintenance, 10/27/20 10:22:00 EST, Tablet, [facility]/pharmacy #[id number], 183, cm, 10/27/20 8:41:00 EST, Height, 119, kg, 09/23/20 17:06:00 EST, DryWeight Start Date: 10/27/20 Stop Date: 04/25/21 Status: Ordered Lidoderm 5% film 1 patch, Topically, Daily, # 30 patch, 0 Refills, Maintenance, 04/03/21 9:04:00 EDT, [facility]/pharmacy #[id number], Partial fill upon patient request if the prescription is for a schedule II opioid drug., 1 patch Topically Daily, 180, cm, 04/03/21 7:30:00 EDT, H... Start Date: 04/03/21 Status: Ordered lisinopril 20 mg oral tablet 40 mg, 2, tablet, By Mouth, Daily, # 60 tablet, Refills 5, Tot. Refills 5, Maintenance, 10/27/20 10:22:00 EST, Route to Pharmacy Electronically, [facility]/pharmacy #[id number], Partial fill upon patient request if the prescription is for a schedule II opioid drug... Start Date: 10/27/20 Status: Ordered Melatonin 5 mg oral tablet 1 tablet = 5 mg, By Mouth, Daily at bedtime, # 30 tablet, 5 Refills, Maintenance, 12/15/20 12:56:00EDT, Tablet, [facility]/pharmacy #[id number], Partial fill upon patient request if the prescription is for a schedule II opioid drug., 183, cm, 12/15/20 11:23:00 ED... Start Date: 12/15/20 Status: Ordered nystatin topical 905410 u/gm powder See Instructions, apply to stump daily, # 30 Gm, 5 Refills, Maintenance, 12/15/20 12:56:00 EDT, Powder, [facility]/pharmacy #[id number], Partial fill upon patient request if the prescription is for a schedule II opioid drug., apply to stump daily, 183, cm, ... Start Date: 12/15/20 Status: Ordered omeprazole 20 mg oral enteric coated capsule 1 capsule = 20 mg, By Mouth, Daily, # 30 capsule, 5 Refills, Maintenance, 10/27/20 10:22:00 EST, ECCapsule, [facility]/pharmacy #[id number], 183, cm, 10/27/20 8:41:00 EST, Height, 119, kg, 09/23/20 17:06:00 EST,Dry Weight Start Date: 10/27/20 Status: Ordered Pen Greene, 29 G x 12.7 mm BD Ultra [...] 12/15/20 12:56:00 EDT, Route to Pharmacy Electronically, [facility]/pharmacy #[id number], 183, cm, 12/15/20 11:23:00 EDT, [...]
--- OUTSIDE RECORDS SUMMARY | 2023-10-18 20:38 | XMS_ITS | Continuity of Care Document ---
Author Name Unknown Organization [facility] Address [address] [place] [address]- Care Team Providers Care Scout Executive Name Role Phone Roberto CH, Efra Miramontes Primary Care Physician Encounter [facility] Date(s): 08/03/22 - 09/02/22 [facility] [address] [place], [place] [address] Allergies, Adverse Reactions, Alerts No [...] 23-valent vaccine 8 04/01/12 Given 1Result Comment: [facility]#[id number] 2Result Comment: [07/31/2018] [facility]# [id number] 3Result Comment: [08/26/2015] done at [facility] 4Admin Note: VIM 03/17/12 5Admin Note: VIM 04/10/11 6Admin Note: VIM 08/03/08 7Admin Note: VIS GIVEN 04/10/13 8Admin Note: vis given dated 06/21/09 Medications ARIPiprazole 5 mg oral tablet 5 mg, 1, tablet, By Mouth, Daily, # 90 tablet, Refills 1, Tot. Refills 1, Maintenance, 06/05/22 10:07:00 EDT, Route to Pharmacy Electronically, [facility]/pharmacy #[id number], Partial fill upon patient request if the prescription is for a schedule II opioid drug.... Start Date: 06/05/22 Stop Date: 12/02/22 Status: Ordered citalopram 40 mg oral tablet 40 mg, 1, tablet, By Mouth, Daily, Take with food., # 90 tablet, Refills 1, Tot. Refills 1, Maintenance, 06/05/22 10:06:00 EDT, Route to Pharmacy Electronically, [facility]/pharmacy #[id number], 181.5, cm, 05/08/22 8:39:00 EDT, Height, 105, kg, 09/26/21 3:23:00 ES... Start Date: 06/05/22 Stop Date: 12/02/22 Status: Ordered donepezil 10 mg oral tablet 10 mg, 1, tablet, By Mouth, Daily at bedtime, # 90 tablet, Refills 1, Tot. Refills 1, Maintenance, 05/08/22 9:47:00 EDT, Route to Pharmacy Electronically, [facility]/pharmacy [...] AM, 0 Refills, Maintenance, 07/14/21 14:22:00 EDT, [place], Partial fill upon patient request if the [...] capsule, Refills 0, Tot. Refills 0, Maintenance, 08/06/22 11:09:00 EST, Route to Pharmacy Electronically, [facility]/pharmacy #[id number], Partial fill upon patient request if the prescription is for a schedule II... Start Date: 08/06/22 Status: Ordered levothyroxine 0.112 mg oral tablet 2 tablet = 224 mcg, By Mouth, Daily, # 60 tablet, 1 Refills, Maintenance, 08/03/22 14:36:00 EST, Tablet, [facility]/pharmacy #[id number], 181.5, cm, 05/08/22 8:39:00 EDT, Height, 105, kg, 09/26/21 3:23:00 EST, Dry Weight Start Date: 08/03/22 Stop Date: 10/02/22 Status: Ordered melatonin 5 mg oral tablet 1 tablet = 5 mg, By Mouth, Daily at bedtime, PRN for insomnia, # 60 tablet, 0 Refills, Maintenance,07/13/21 22:12:00 EDT, Tablet, Partial fill upon patient request if the prescription is for a schedule II opioid drug. Start Date: 07/13/21 Status: Ordered nystatin topical 952179 u/gm powder See Instructions, apply to stump [...] 0 Refills, Maintenance, 08/28/22 13:07:00 EST, ECCapsule, [facility]/pharmacy #[id number], 181.5, cm, 05/08/22 8:39:00 EDT, Height, 105, kg, 09/26/21 3:23:00 EST, Dry Weight Start Date: 08/28/22 Status: Ordered prazosin 2 mg oral capsule 1 capsule = 2 mg, By Mouth, Daily at bedtime, # 90 capsule, 1 Refills, Maintenance, 06/05/22 10:07:00 EDT, Capsule, [facility]/pharmacy #[id number], Partial fill upon patient request if the prescription is for a schedule II opioid drug., 181.5, cm, 05/08/22 8:39:0... Start Date: 06/05/22 Stop Date: 12/02/22 Status: Ordered ramelteon 8 mg oral tablet 1 tablet = 8 mg, By Mouth, Daily at bedtime, # 90 tablet, 1 Refills, Maintenance, 06/05/22 10:07:00EDT, Tablet, [facility]/pharmacy #[id number], Partial fill upon patient request if the prescription is for a schedule II opioid drug., 181.5, cm, 05/08/22 8:39:00 E... Start Date: 06/05/22 Stop Date: 12/02/22 Status: Ordered Suboxone 8 mg-2 mg Sublingual Film See Instructions, 1.5 films sublingual in AM, 1 film sublingual in PM [id number] next appt 09/04, # 75 film, 0 Refills, Maintenance, 08/28/22 16:20:00 EST, [facility]/pharmacy #[id number], 1.5 films sublingual in AM, 1 film sublingual in PM ; [id number]; next celestina... Start Date: 08/28/22 Status: Ordered tamsulosin 0.4 mg oral capsule [...] Team Personnel Name: Alka Lee RN Position: [facility] RN Member Role: Primary Care Nurse Name: Jaleel Lo RN Position: [facility] RN Member Role: Primary Care Nurse Name: Ivy Smith RN Position: [facility] RN Member Role: Primary Care Nurse Name: Efra Mejia MD Position: [facility] Primary Care Physician Member Role: PCP Address: Address: [address] [place] [address] Name: Devorah Johnson RN Position: [facility] RN Member Role: Primary Care Nurse Name: Dustin Chavez RN Position: [facility] RN Member Role: Primary Care Nurse Name: Litzy Weinberg RN Position: [facility] RN Member Role: Primary Care Nurse Name: Melaine Garay Position: [facility] RN Member Role: Primary Care Nurse Name: Yoselyn Patrick RN Position: [facility] RN Member Role: Primary Care Nurse Name: Michelle Buckley Position: [facility] RN Member Role: Primary Care Nurse Name: Saundra Gonzalez Position: [facility] RN Member Role: Primary Care Nurse Name: Sofía Moreno RN Position: [facility] RN Member Role: Primary Care Nurse Name: Sary Tong RN Position: [facility] RN Member Role: Primary Care Nurse Name: Sophia Lomas RN Position: [facility] RN Member Role: Primary Care Nurse Name: Danielito Woo RN Position: [facility] Animal Services Officer Member Role: Primary Care Nurse Care Team Related Persons Name: ANGELOTINY Address: home [address] [place], [place] Name: FERNIE CUMMINS Address: home [address] [place], [place] Name: TINY CUMMINS Address: [address]
--- OUTSIDE RECORDS SUMMARY | 2023-10-18 20:38 | XMS_ITS | Continuity of Care Document ---
Author Name Unknown Organization [facility] Address [address] [place] [address]- Care Team Providers Care Flight Kitchen Manager Name Role Phone Efra Mejia MD Primary Care Physician Encounter [facility] Date(s): 08/31/21 - 09/07/21 [facility] [address] [place] [address]- Attending Physician: Efra Mejia MD Allergies, Adverse [...] 23-valent vaccine 8 04/01/12 Given 1Result Comment: [facility]#[id number] 2Result Comment: [07/31/2018] [facility]# [id number] 3Result Comment: [08/26/2015] done at [facility] 4Admin Note: VIM 03/17/12 5Admin Note: VIM [...] AM, 0 Refills, Maintenance, 07/14/21 14:22:00 EDT, [place], Partial fill upon patient request if the [...] Start Date: 07/13/21 Status: Ordered nystatin topical 477068 u/gm powder See Instructions, apply to stump [...] oldest [Reference Range]: 1 Height 180 cm (08/31/21 10:17 AM) Social History Social History Type Response Tobacco Other: 3 cigars brenden y. Sex
--- OUTSIDE RECORDS SUMMARY | 2023-10-18 20:38 | XMS_ITS | Continuity of Care Document ---
Author Name Unknown Organization [facility] Address [address] [place] [address]- Care Team Providers Care Couples Therapist Name Role Phone Roberto CH, Efra Miramontes Primary Care Physician Encounter [facility] Date(s): 03/07/23 - 04/06/23 [facility] [address] [place] [address]- Attending Physician: AdmBobby mckeon Admitting Physician: AdmtrBobby Referring Physician: Admtr, Ar8 Allergies, Adverse Reactions, Alerts No Known Allergies Immunizations Given and Recorded Vaccine Date Status Refusal Reason SARS-CoV-2 mRNA (qbkgaxc-cukd-teuvq) vax 04/27/22 Recorded influenza virus vaccine, inactivated [...] 23-valent vaccine 8 04/01/12 Given 1Result Comment: [facility]#[id number] 2Result Comment: [07/31/2018] [facility]# [id number] 3Result Comment: [08/26/2015] done at [facility] 4Admin Note: VIM 03/17/12 5Admin Note: VIM 04/10/11 6Admin Note: VIM 08/03/08 7Admin Note: VIS GIVEN 04/10/13 8Admin Note: vis given dated 06/21/09 Medications ARIPiprazole 5 mg oral tablet 5 mg, 1, tablet, By Mouth, Daily, # 90 tablet, Refills 1, Tot. Refills 1, Maintenance, 03/01/23 10:12:00 EDT, Route to Pharmacy Electronically, [facility]/pharmacy #[id number], Partial fill upon patient request if the prescription is for a schedule II opioid drug.... Start Date: 03/01/23 Stop Date: 08/28/23 Status: Ordered citalopram 40 mg oral tablet 40 mg, 1, tablet, By Mouth, Daily, Take with food., # 90 tablet, Refills 1, Tot. Refills 1, Maintenance, 03/01/23 10:12:00 EDT, Route to Pharmacy Electronically, [facility]/pharmacy #[id number], 181.5, cm, 02/05/23 12:41:00 EDT, Height, 103, kg, 10/26/22 11:39:00... Start Date: 03/01/23 Stop Date: 08/28/23 Status: Ordered donepezil 10 mg oral tablet 10 mg, 1, tablet, By Mouth, Daily at bedtime, # 90 tablet, Refills 2, Tot. Refills 2, Maintenance, 10/11/22 12:01:00 EST, Route to Pharmacy Electronically, [facility]/pharmacy #[id number], Partial fill upon patient request [...] AM, 0 Refills, Maintenance, 07/14/21 14:22:00 EDT, [place], Partial fill upon patient request if the [...] 03/27/23 17:30:00 EDT, Route to Pharmacy Electronically, [facility]/pharmacy #[id number], override needed for lost prescription, thanks., 181.5, cm, 03/07/23 10:11:0... Start Date: 03/27/23 Status: Ordered levothyroxine 0.112 mg oral tablet 2 tablet = 224 mcg, By Mouth, Daily, # 60 tablet, 2 Refills, Maintenance, 03/27/23 12:47:00 EDT, Tablet, [facility]/pharmacy #[id number], 181.5, cm, 03/07/23 10:11:00 EDT, [...] Start Date: 07/13/21 Status: Ordered nystatin topical 298419 u/gm ointment 1 application, Topically, 3 times a day, for 14 days, apply to R stump as needed for skin rash, # 120 Gm, 3 Refills, Acute 05/02/23 11:31:00 EDT, 03/07/23 11:31:00 EDT, Ointment, [id number], Partial fill upon patient request if the prescriptio... Start Date: 03/07/23 Stop Date: 05/02/23 Status: Ordered nystatin topical 102743 u/gm powder See Instructions, apply to stump [...] in AM, 1 film sublingual in PM [id number], # 75 film, 1 Refills, Maintenance, 03/01/23 10:12:00 EDT, [facility]/pharmacy #[id number], 1.5 films sublingual in AM, 1 film sublingual in PM ; [id number], 181.5, cm, 02/05/23 12:41... Start Date: 03/01/23 Status: Ordered tamsulosin 0.4 mg oral capsule 0.4 mg, 1, capsule, By Mouth, Daily, # 90 capsule, Refills 3, Tot. Refills 3, Maintenance, 12/20/2315:00:00 EDT, Route to Pharmacy Electronically, [facility]/pharmacy #[id number], Partial fill upon patient request [...] Team Personnel Name: Cayla Herrera RN Position: [facility] ED RN W/OE and Tasks Member Role: Primary Care Nurse Name: Alka Lee RN Position: [facility] RN Member Role: Primary Care Nurse Name: Jaleel Lo RN Position: [facility] RN Member Role: Primary Care Nurse Name: Ivy Smith RN Position: [facility] RN Member Role: Primary Care Nurse Name: Efra Mejia MD Position: [facility] Physician - Primary Care Member Role: PCP Address: Address: [address] [place] [address] Name: Devorah Johnson RN Position: [facility] RN Member Role: Primary Care Nurse Name: Dustin Chavez RN Position: [facility] RN Member Role: Primary Care Nurse Name: Litzy Weinberg RN Position: [facility] RN Member Role: Primary Care Nurse Name: Melanie Garay Position: [facility] RN Member Role: Primary Care Nurse Name: Michelle Akbar [place] Position: [facility] RN Member Role: Primary Care Nurse Name: Saundra Gonzalez Position: [facility] RN Member Role: Primary Care Nurse Name: Sofía Moreno RN Position: [facility] RN Member Role: Primary Care Nurse Name: Sary Tong RN Position: [facility] RN Member Role: Primary Care Nurse Name: Sophia Lomas RN Position: [facility] RN Member Role: Primary Care Nurse Name: Danielito Woo RN Position: [facility] Community Action Worker Member Role: Primary Care Nurse Care Team Related Persons Name: TINY STEPHENS Address: home [address] [place], [place] Name: FERNIE CUMMINS Address: [address] [place], [place] Name: TINY CUMMINS Address: home [address] [place] [address]
--- OUTSIDE RECORDS SUMMARY | 2023-10-18 20:38 | XMS_ITS | Continuity of Care Document ---
Author Name Unknown Organization [facility] Address [address] [place] [address]- Care Team Providers Care Collaborative Physician Name Role Phone Efra Mejia MD Primary Care Physician [facility]counter [facility] Date(s): 07/31/23 - 08/30/23 [facility] [address] [place] [address]- Allergies, Adverse Reactions, Alerts No Known Allergies [...] inactivated 5 08/16/11 Gi raheem SARS-CoV-2 mRNA (wdeyjtb-yffp-tprdq) vax 04/27/22 Recorded zoster vaccine, inactivated 06/11/21 Recorded SARS-CoV-2 (COVID-19) mRNA BNT-162b2 vac 06/11/21 Recorded SARS-CoV-2 (COVID-19) mRNA BNT-162b2 vac 12/04/20 Recorded SARS-CoV-2 (COVID-19) mRNA BNT-162b2 vac 11/13/20 Recorded tetanus/diphtheria/pertussis, acel(Tdap) 05/07/21 Given tetanus/diphtheria/pertussis, acel(Tdap) 6 03/05/11 Given Influenza Virus Vaccine (oldterm) 06/08/19 Recorde d Fluarix (oldterm) 7 08/19/13 Given pneumococcal 23-valent vaccine 8 04/01/12 Given 1Result Comment: [facility]#[id number] 2Result Comment: [07/31/2018] [facility]# [id number] 3Result Comment: [08/26/2015] done at [facility] 4Admin Note: VIM 03/17/12 5Admin Note: VIM 04/10/11 6Admin Note: VIM 08/03/08 7Admin Note: VIS GIVEN 04/10/13 8Admin Note: vis given dated 06/21/09 Medications ARIPiprazole 5 mg oral tablet 5 mg, 1, tablet, By Mouth, Daily, # 90 tablet, Refills 1, Tot. Refills 1, Maintenance, 03/01/23 10:12:00 EDT, Route to Pharmacy Electronically, [facility]/pharmacy #[id number], Partial fill upon [...] 06/25/23 10:14:00 EDT, Route to Pharmacy Electronically, [facility]/pharmacy #[id number], 181.5, cm, 06/06/23 16:27:00 EDT, Height, 103, kg, 10/26/22 11:39:00... Start Date: 06/25/23 Stop Date: 12/22/23 Status: Ordered donepezil 10 mg oral tablet 1, tablet, By Mouth, Daily at bedtime, # 90 tablet, Refills 2, Maintenance, 07/26/23 16:19:00 EST, Route to Pharmacy Electronically, [id number], 181.5, cm, 07/11/23 11:00:00 EDT, Height, 103, kg, 10/26/22 11:39:00 EST, Dry Weight Start Date: 07/26/23 Status: Ordered famotidine 40 mg oral tablet 1 tablet = 40 mg, By Mouth, Daily at bedtime, # 30 tablet, 2 Refills, Maintenance, 08/21/23 14:50:00 EST, Tablet, [facility]/pharmacy #[id number], Partial fill upon [...] Gm, 0 Refills, Maintenance, 07/11/23 13:02:00 EDT, [place], [facility]/pharmacy #[id number], Partial fill upon patient request if the prescription is for a schedule II opioid drug., 2 sprays Nares, Both Daily, 181.5, cm, 07/11/23 1... Start Date: 07/11/23 Status: Ordered fluticasone 50 mcg/inh nasal spray 2 sprays, Nares, Both, Daily in AM, 0 Refills, Maintenance, 07/14/21 14:22:00 EDT, [place], Partial fill upon patient request if the [...] 03/27/23 17:30:00 EDT, Route to Pharmacy Electronically, [facility]/pharmacy #[id number], override needed for lost prescription, thanks., 181.5, cm, 03/07/23 10:11:0... Start Date: 03/27/23 Status: Ordered levothyroxine 0.2 mg oral tablet 1 tablet = 200 mcg, By Mouth, Daily, # 30 tablet, 5 Refills, Maintenance, 07/14/23 18:02:00 EDT, Tablet, [facility]/pharmacy #[id number], dose reduction, 181.5, cm, 07/11/23 [...] Start Date: 07/13/21 Status: Ordered nystatin topical 909508 u/gm powder See Instructions, apply to stump 3 x day, # 120 Gm, 5 Refills, Maintenance, 04/23/23 15:43:00 EDT, Powder, [facility]/pharmacy #[id number], Partial fill upon patient request if the prescription is for a schedule II opioid drug., apply to stump 3 x day, 181.5, cm... Start Date: 04/23/23 Status: Ordered nystatin topical 798683 u/gm powder See Instructions, apply to stump 3 x day, # 120 Gm, 5 Refills, Maintenance, 07/06/21 12:35:00 EDT, Powder, [facility]/pharmacy #[id number], Partial fill upon [...] PM, # 75 film, 0 Refills, Maintenance, 08/30/23 7:19:00 EST, [id number], [id number], 1.5 films sublingual in AM, 1 film sublingual in PM, 181.5, cm, 07/11/23 11:00:00 EDT, [place]... Start Date: 08/30/23 Status: Ordered tamsulosin 0.4 mg oral capsule 0.4 mg, 1, capsule, By Mouth, Daily, # 90 capsule, Refills 3, Tot. Refills 3, Maintenance, 12/20/2315:00:00 EDT, Route to Pharmacy Electronically, [facility]/pharmacy #[id number], Partial fill upon patient request if the [...] Team Personnel Name: Cayla Herrera RN Position: [facility] ED RN W/OE and Tasks Member Role: Primary Care Nurse Name: Alka Lee RN Position: [facility] RN Member Role: Primary Care Nurse Name: Jaleel Lo RN Position: [facility] RN Member Role: Primary Care Nurse Name: Ivy Smith RN Position: [facility] RN Member Role: Primary Care Nurse Name: Efra Mejia MD Position: [facility] Physician - Primary Care Member Role: PCP Address: Address: [address] [place] [address] Name: Devorah Johnson RN Position: [facility] SN RN Member Role: Primary Care Nurse Name: Dustin Chavez RN Position: [facility] RN Member Role: Primary Care Nurse Name: Litzy Weinberg RN Position: [facility] RN Member Role: Primary Care Nurse Name: Melanie Garay Position: [facility] RN Member Role: Primary Care Nurse Name: Yoselyn Patrick RN Position: [facility] RN Member Role: Primary Care Nurse Name: Michelle Akbar [place] Position: [facility] RN Member Role: Primary Care Nurse Name: Saundra Gonzalez Position: [facility] RN Member Role: Primary Care Nurse Name: Sofía Moreno RN Position: [facility] RN Member Role: Primary Care Nurse Name: Sary Tong RN Position: [facility] RN Member Role: Primary Care Nurse Name: Danielito Woo RN Position: [facility] Hospital Station Captain Member Role: Primary Care Nurse Care Team Related Persons Name: TINY STEPHENS Address: [address] [place] [id number] Name: FERNIE CUMMINS Address: [address] [place] [address] Name: TINY CUMMINS Address: [address] [place] [address]
--- OUTSIDE RECORDS SUMMARY | 2023-10-18 20:38 | XMS_ITS | Continuity of Care Document ---
Author Name Unknown Organization [facility] Address [address] [place] [address]- Care Team Providers Care Mounted Police Name Role Phone Efra Mejia MD Primary Care Physician [facility]counter [facility] Date(s): 06/22/20 - 07/22/20 [facility] [address] [place] [address]- Allergies, Adverse Reactions, Alerts Substance Reaction Severity [...] 7 03/05/11 Given 1Result Comment: [07/31/2018] [facility]# [id number] 2Result Comment: [08/26/2015] done at [facility] 3Admin Note: VIM 03/17/12 4Admin Note: VIM 04/10/11 5Admin Note: VIS GIVEN 04/10/13 6Admin Note: vis given dated 06/21/09 7Admin Note: VIM 08/03/08 Medications albuterol CFC free 90 mcg/inh inhalation aerosol 1, puffs, Inhalation, 4 times a day, PRN, # 18 Gm, Refills 0, Tot. Refills 0, Maintenance, 12/02/2009:56:00 EDT, Aerosol, Route to Pharmacy Electronically, [id number], [facility]/pharmacy #[id number], 180.3, cm, 11/12/19 15:07:00 EST, He... [...] Maintenance, 07/02/16 16:06:12, Route to Pharmacy Electronically, [id number], [facility] Start Date: [...] 07/12/20 15:44:00 EDT, Route to Pharmacy Electronically, [facility]/pharmacy #[id number], 183, cm, 07/12/20 14:47:00 EDT, Height, [...] 5 Refills, Maintenance, 05/31/20 14:57:00 EDT, Solution, [facility]/pharmacy #[id number], 180.3, cm, 05/31/20 14:08:00 EDT, Height, 120.7, kg, 11/03/19 13:31:00 EST, Dry Weight Start Date: 05/31/20 Status: Ordered levothyroxine 0.112 mg oral tablet 2 tablet = 224 mcg, By Mouth, Daily, # 60 tablet, 5 Refills, Maintenance, 07/10/20 12:51:00 EDT, Tablet, [facility]/pharmacy #[id number], 183, cm, 07/10/20 3:29:00 EDT, Height, [...] 1 Refills, Maintenance, 02/05/20 14:18:00 EDT, Tablet, [facility], 3 tablet By Mouth Daily,Instr:x [...] Refills, Maintenance, 06/21/20 14:32:00 EDT, REC Powder, [facility]/pharmacy #[id number], 17 Gm By Mouth Daily,Instr:dissolve in water beforetaking, 180.3, cm, 06/21/20 13:42:00 EDT, Height, 1... Start Date: 06/21/20 Status: Ordered Nicoderm C-Q 21 mg/24 hr transdermal film, extended release 1 patch, Topically, Daily, # 30 patch, 4 Refills, Maintenance, 05/31/20 14:58:00 EDT, Patch, [facility]/pharmacy #[id number], 180.3, cm, 05/31/20 14:08:00 EDT, Height, 120.7, kg, 11/03/19 13:31:00 EST, Dry Weight Start Date: 05/31/20 Stop Date: 10/28/20 Status: Ordered omeprazole 20 mg oral enteric coated capsule 1 capsule = 20 mg, By Mouth, Daily, # 30 capsule, 5 Refills, Maintenance, 05/26/20 17:50:00 EDT, ECCapsule, [facility]/pharmacy #[id number], 180.3, cm, 05/06/20 16:07:00 EDT, Height, 120.7, kg, 11/03/19 13:31:00EST, Dry Weight Start Date: 05/26/20 Status: Ordered Pen [place], 29 G x 12.7 mm BD Ultra Fine See Instructions, # 1 box, Refills 3, Tot. Refills 3, Maintenance, use with NOvolog Pen injection twice daily, 06/18/19 9:42:43 EDT, Compound Start Date: 06/18/19 Status: Ordered tamsulosin 0.4 mg oral capsule 0.4 mg, 1, capsule, By Mouth, Daily, # 30 capsule, Refills 11, Tot. Refills 11, Maintenance, 07/05/20 16:10:00 EDT, Route to Pharmacy Electronically, [facility]/pharmacy #[id number], 180.3, cm, 06/21/20 13:42:00 EDT, Height, 120.7, kg, 11/03/19 13:31:00 EST, Dry W... Start Date: 07/05/20 Status: Ordered traZODone 50 mg oral tablet 25 mg, By Mouth, Daily at bedtime, PRN, # 30 tablet, Refills 1, Tot. Refills 1, Maintenance, Insomnia, 07/10/20 12:52:00 EDT, [id number], cm, 07/10/20 3:29:00 EDT, [...]
--- OUTSIDE RECORDS SUMMARY | 2023-10-18 20:38 | XMS_ITS | Continuity of Care Document ---
Author Name Unknown Organization [facility] Address [address] [place] [address]- Care Team Providers Care Protohistorian Name Role Phone Efra Mejia MD Primary Care Physician Encounter [facility] Date(s): 09/30/20 - 11/05/20 [facility] [address] [place] [address]- Attending Physician: fEra Mejia MD Allergies, Adverse Reactions, Alerts Substance [...] Comment: [07/31/2018] [facility]# [id number] 2Result Comment: [08/26/2015] done at [facility] 3Admin Note: VIM 03/17/12 4Admin Note: VIM 04/10/11 5Admin Note: VIS GIVEN 04/10/13 6Admin Note: vis given dated 06/21/09 7Admin Note: VIM 08/03/08 Medications albuterol CFC free 90 mcg/inh inhalation aerosol 1, puffs, Inhalation, 4 times a day, PRN, # 18 Gm, Refills 0, Tot. Refills 0, Maintenance, 12/02/2009:56:00 EDT, Aerosol, Route to Pharmacy Electronically, [id number], [facility]/pharmacy #[id number], 180.3, cm, 11/12/19 15:07:00 EST, [...] Maintenance, 07/02/16 16:06:12, Route to Pharmacy Electronically, [id number], [facility] Start Date: [...] 10/27/20 10:24:00 EST, Route to Pharmacy Electronically, [facility]/pharmacy #[id number], Partial fill upon patient request [...] 5 Refills, Maintenance, 10/27/20 10:22:00 EST, Solution, [facility]/pharmacy #[id number], 183, cm, 10/27/20 8:41:00 EST, Height, 119, kg, 09/23/20 17:06:00 EST, Dry Weight Start Date: 10/27/20 Status: Ordered levothyroxine 0.112 mg oral tablet 2 tablet = 224 mcg, By Mouth, Daily, # 60 tablet, 5 Refills, Maintenance, 10/27/20 10:22:00 EST, Tablet, [facility]/pharmacy #[id number], 183, cm, 10/27/20 8:41:00 EST, Height, 119, kg, 09/23/20 17:06:00 EST, DryWeight Start Date: 10/27/20 Stop Date: 04/25/21 Status: Ordered lisinopril 20 mg oral tablet 40 mg, 2, tablet, By Mouth, Daily, # 60 tablet, Refills 5, Tot. Refills 5, Maintenance, 10/27/20 10:22:00 EST, Route to Pharmacy Electronically, [facility]/pharmacy #[id number], Partial fill upon patient request if the prescription is for a schedule II opioid drug... Start Date: 10/27/20 Status: Ordered MiraLax oral powder for reconstitution = 17 Gm, By Mouth, Daily, dissolve in water before taking, # 527 Gm, 5 Refills, Maintenance, 10/27/20 10:23:00 EST, REC Powder, [facility]/pharmacy #[id number], 17 Gm By Mouth Daily,Instr:dissolve in water beforetaking, 183, cm, 10/27/20 8:41:00 EST, Height, 119,... Start Date: 10/27/20 Status: Ordered omeprazole 20 mg oral enteric coated capsule 1 capsule = 20 mg, By Mouth, Daily, # 30 capsule, 5 Refills, Maintenance, 10/27/20 10:22:00 EST, ECCapsule, [facility]/pharmacy #[id number], 183, cm, 10/27/20 8:41:00 EST, Height, 119, kg, 09/23/20 17:06:00 EST,Dry Weight Start Date: 10/27/20 Status: Ordered Pen [place], 29 G x 12.7 mm BD Ultra Fine See Instructions, # 1 box, Refills 3, Tot. Refills 3, Maintenance, use with NOvolog Pen injection twice daily, 06/18/19 9:42:43 EDT, Compound Start Date: 06/18/19 Status: Ordered tamsulosin 0.4 mg oral capsule 0.4 mg, 1, capsule, By Mouth, Daily, # 30 capsule, Refills 11, Tot. Refills 11, Maintenance, 10/27/20 10:23:00 EST, Route to Pharmacy Electronically, [facility]/pharmacy #[id number], 183, cm, 10/27/20 8:41:00 EST, [...]
--- OUTSIDE RECORDS SUMMARY | 2023-10-18 20:38 | XMS_ITS | Continuity of Care Document ---
Author Name Unknown Organization [facility] Address [address] [place] [address]- Care Team Providers Care Shift Nurse Manager Name Role Phone Efra Mejia MD Primary Care Physician [phone] [facility]counter [facility] Date[facility]s): 04/01/20 - 05/01/20 [facility] [address] [place] [address]- [facility] Allergies, Adverse Reactions, Alerts Substance Reaction Severity [...] Given 1Result Comment: [07/31/2018] [facility]# [id number] 2Result Comment: [08/26/2015] done at [facility] [...] 12/02/2009:56:00 EDT, Aerosol, Route to Pharmacy Electronically, [id number], [facility]/pharmacy #[id number], 180.3, cm, 11/12/19 15:07:00 EST, [...] 1 Refills, Maintenance, 11/12/19 10:02:00 EST, Gel, [facility]/pharmacy #[id number], 180.3, cm, 11/12/19 8:43:00 EST, [...] Maintenance, 07/02/16 16:06:12, Route to Pharmacy Electronically, [id number], [facility] Start Date: [...] 5 Refills, Maintenance, 10/22/19 10:55:00 EST, Tablet, [facility]/pharmacy #[id number], 180.3, cm, 10/22/19 10:14:00 EST, Height, 118.5, kg, 05/12/19 10:33:00 EDT, Dry Weight Start Date: 10/22/19 Status: Ordered ibuprofen 800 mg oral tablet 800 mg, 1, tablet, By Mouth, Every 8 hours, PRN, # 90 tablet, Refills 0, Tot. Refills 0, Maintenance, as needed for pain, 04/10/19 17:13:55 EDT, Route to Pharmacy Electronically, [id number], [facility] Start Date: [...] 5 Refills, Maintenance, 01/12/20 14:27:00 EDT, Tablet, [facility]/pharmacy #[id number], 180.3, cm, 01/12/20 13:41:00 EDT, Height, 120.7, kg, 11/03/19 13:31:00EST, Dry Weight Start Date: 01/12/20 Status: Ordered Lantus Solostar Pen 100 units/mL subcutaneous solution = 60 units, Subcutaneous Injection, 2 times a day, # 15 mL, 5 Refills, Maintenance, 01/19/20 15:07:00 EDT, Solution, [facility]/pharmacy #[id number], 180.3, cm, 01/19/20 14:07:00 EDT, [...] 01/20/18 13:36:03 EDT, Route to Pharmacy Electronically, [id number], [facility] Start Date: 01/20/18 Stop Date: 01/15/19 Status: Ordered Mavyret 100 mg-40 mg oral tablet 3 tablet, By Mouth, Daily, x 8 weeks, # 84 tablet, 1 Refills, Maintenance, 02/05/20 14:18:00 EDT, Tablet, [facility], 3 tablet By Mouth [...] 11/12/19 15:56:00 EST, Route to Pharmacy Electronically, [facility]/pharmacy #[id number], 180.3, cm, 11/12/19 15:07:00 EST, [...] Weight Start Date: 08/27/19 Status: Ordered Pen [place], 29 G x 12.7 mm BD Ultra [...]
--- OUTSIDE RECORDS SUMMARY | 2023-10-18 20:38 | XMS_ITS | Continuity of Care Document ---
Author Name Unknown Organization [facility] Address [address] [place] [address]- Care Team Providers Care New Car Inspector Name Role Phone Roberto CH, Efra Miramontes Primary Care Physician [facility] Date[facility]s): 08/08/20 - 09/07/20 [facility] [address] [place] [address]- Allergies, Adverse Reactions, Alerts Substance Reaction Severity [...] Comment: [07/31/2018] [facility]# [id number] 2Result Comment: [08/26/2015] done at [facility] 3Admin Note: VIM 03/17/12 4Admin Note: VIM 04/10/11 5Admin Note: VIS GIVEN 04/10/13 6Admin Note: vis given dated 06/21/09 7Admin Note: VIM 08/03/08 Medications albuterol CFC free 90 mcg/inh inhalation aerosol 1, puffs, Inhalation, 4 times a day, PRN, # 18 Gm, Refills 0, Tot. Refills 0, Maintenance, 12/02/2009:56:00 EDT, Aerosol, Route to Pharmacy Electronically, [id number], [facility]/pharmacy #[id number], 180.3, cm, 11/12/19 15:07:00 EST, [...] Maintenance, 07/02/16 16:06:12, Route to Pharmacy Electronically, [id number], [facility] Start Date: [...] 1 Refills, Maintenance, 02/05/20 14:18:00 EDT, Tablet, [facility], 3 tablet By Mouth Daily,Instr:x [...] Refills, Maintenance, 06/21/20 14:32:00 EDT, REC Powder, [id number], 17 Gm By [...] 4 Refills, Maintenance, 05/31/20 14:58:00 EDT, Patch, [id number], 180.3, cm, 05/31/20 14:08:00 EDT, Height, 120.7, kg, 11/03/19 13:31:00 EST, Dry Weight Start Date: 05/31/20 Stop Date: 10/28/20 Status: Ordered omeprazole 20 mg oral enteric coated capsule 1 capsule = 20 mg, By Mouth, Daily, # 30 capsule, 5 Refills, Maintenance, 05/26/20 17:50:00 EDT, ECCapsule, [facility]/pharmacy #[id number], 180.3, cm, 05/06/20 16:07:00 EDT, Height, 120.7, kg, 11/03/19 13:31:00EST, Dry Weight Start Date: 05/26/20 Status: Ordered Pen [place], 29 G x 12.7 mm BD [...] 07/05/20 16:10:00 EDT, Route to Pharmacy Electronically, [facility]/pharmacy #[id number], 180.3, cm, 06/21/20 13:42:00 EDT, Height, 120.7, kg, 11/03/19 13:31:00 EST, Dry W... Start Date: 07/05/20 Status: Ordered traZODone 50 mg oral tablet 25 mg, By Mouth, Daily at bedtime, PRN, # 30 tablet, Refills 1, Tot. Refills 1, Maintenance, Insomnia, 07/10/20 12:52:00 EDT, Route to Pharmacy Electronically, [facility]/pharmacy #[id number], 183, cm, 07/10/20 3:29:00 EDT, [...]
--- OUTSIDE RECORDS SUMMARY | 2023-10-18 20:38 | XMS_ITS | Continuity of Care Document ---
Author Name Unknown Organization [facility] Address [address] [place] [address]- Care Team Providers Care Funeral Planner Name Role Phone Roberto CH, Efra Miramontes Primary Care Physician Encounter [facility] Date(s): 02/28/23 - 03/30/23 [facility] [address] [place] [address]- Allergies, Adverse Reactions, Alerts No Known Allergies Immunizations Given and Recorded Vaccine Date Status Refusal Reason SARS-CoV-2 mRNA (gthgftj-[id number]-fnwnl) vax 04/27/22 Recorded influenza virus vaccine, inactivated [...] 23-valent vaccine 8 04/01/12 Given 1Result Comment: [facility]#[id number] 2Result Comment: [07/31/2018] [facility]# [id number] 3Result Comment: [08/26/2015] done at [facility] 4Admin Note: VIM 03/17/12 5Admin Note: VIM 04/10/11 6Admin Note: VIM 08/03/08 7Admin Note: VIS GIVEN 04/10/13 8Admin Note: vis given dated 06/21/09 Medications amoxicillin-clavulanate 875 mg-125 mg oral tablet 1 tablet, By Mouth, Every 12 hours, for 7 days, # 14 tablet, 0 Refills, Acute 04/05/23 13:53:00 EDT, 03/29/23 13:53:00 EDT, Tablet, [facility]/pharmacy #[id number], Partial fill upon patient request if the prescription is for a schedule II opioid drug., 181.5, cm,... Start Date: 03/29/23 Stop Date: 04/05/23 Status: Ordered ARIPiprazole 5 mg oral tablet 5 mg, 1, tablet, By Mouth, Daily, # 90 tablet, Refills 1, Tot. Refills 1, Maintenance, 03/01/23 10:12:00 EDT, [facility] to [facility]ically[facility] 03/01/23 10:12:00 EDT, Route to Pharmacy Electronically, [facility]/pharmacy #[id number], 181.5, cm, 02/05/23 12:41:00 EDT, Height, 103, kg, 10/26/22 11:39:00... Start Date: 03/01/23 Stop Date: 08/28/23 Status: Ordered donepezil 10 mg oral tablet 10 mg, 1, tablet, By Mouth, Daily at bedtime, # 90 tablet, Refills 2, Tot. Refills 2, Maintenance, 10/11/22 12:01:00 EST, [facility] to Pharm[facility] Electronically, [facility] AM, 0 Refills, Maintenance, 07/14/21 14:22:00 EDT, [place], Partial fill upon patient request if [...] 03/27/23 17:30:00 EDT, Route to Pharmacy Electronically, [facility]/pharmacy #[id number], override needed for lost prescription, thanks., 181.5, cm, 03/07/23 10:11:0... Start Date: 03/27/23 Status: Ordered levothyroxine 0.112 mg oral tablet 2 tablet = 224 mcg, By Mouth, Daily, # 60 tablet, 2 Refills, Maintenance, 03/27/23 12:47:00 EDT, Tablet, [facility]/pharmacy #[id number], 181.5, cm, 03/07/23 10:11:00 EDT, [...] Start Date: 07/13/21 Status: Ordered nystatin topical 542690 u/gm ointment 1 application, Topically, 3 times a day, for 14 days, apply to R stump as needed for skin rash, # 120 Gm, 3 Refills, Acute 05/02/23 11:31:00 EDT, 03/07/23 11:31:00 EDT, Ointment, [facility]/pharmacy #[id number], Partial fill upon patient request if the prescriptio... Start Date: 03/07/23 Stop Date: 05/02/23 Status: Ordered nystatin topical 430282 u/gm powder See Instructions, apply to stump [...] in AM, 1 film sublingual in PM [id number], # 75 film, 1 Refills, Maintenance, 03/01/23 10:12:00 EDT, [facility]/pharmacy #[id number], 1.5 films sublingual in AM, 1 film sublingual in PM ; [id number], 181.5, cm, 02/05/23 12:41... Start Date: 03/01/23 Status: Ordered tamsulosin 0.4 mg oral capsule 0.4 mg, 1, capsule, By Mouth, Daily, # 90 capsule, Refills 3, Tot. Refills 3, Maintenance, 12/20/2315:00:00 EDT, [facility] to Pharmacy Electronically, [facility] Team Personnel Name: Cayla Herrera RN Position: [facility] ED RN W/OE and Tasks Member Role: Primary Care Nurse Name: Alka Lee RN Position: [facility] SN RN Member Role: Primary Care Nurse Name: Jaleel Lo RN Position: [facility] RN Member Role: Primary Care Nurse Name: Ivy Smith RN Position: [facility] RN Member Role: Primary Care Nurse Name: Efra Mejia MD Position: [facility] Physician - Primary Care Member Role: PCP Address: Address: [address] [place] [id number] Name: Devorah Johnson RN Position: [facility] RN Member Role: Primary Care Nurse Name: Dustin Chavez RN Position: [facility] RN Member Role: Primary Care Nurse Name: Litzy Weinberg RN Position: [facility] RN Member Role: Primary Care Nurse Name: Melanie Garay Position: [facility] RN Member Role: Primary Care Nurse Name: Michelle Akbar [place] Position: [facility] RN Member Role: Primary Care Nurse Name: Saundra Gonzalez Position: [facility] RN Member Role: Primary Care Nurse Name: Sofía Moreno RN Position: [facility] RN Member Role: Primary Care Nurse Name: Sary Tong RN Position: [facility] RN Member Role: Primary Care Nurse Name: Sophia Lomas RN Position: [facility] RN Member Role: Primary Care Nurse Name: Danielito Woo RN Position: [facility] Hospital Planning Intern Member Role: Primary Care Nurse Care Team Related Persons Name: TINY STEPHENS Address: home [address] [place] [place], [place] Name: FERNIE CUMMINS Address: home [address] [place], [place] Name: TINY CUMMINS Address: home [address] [place], [place]
--- OUTSIDE RECORDS SUMMARY | 2023-10-18 20:38 | XMS_ITS | Continuity of Care Document ---
Author Name Unknown Organization [facility] Address [address] [place] [id number]- Care Team Providers Care Quality Control Microbiologist Name Role Phone Efra Mejia MD Primary Care Physician Encounter [facility] [id number] Date(s): 07/11/23 - 08/16/23 [facility] [address] [place] [id number] Attending Physician: Juve Lopez MD Admitting [...] inactivated 5 08/16/11 Gi raheem SARS-CoV-2 mRNA (aylpqfu-qubs-jkuwp) vax 04/27/22 Recorded zoster vaccine, inactivated 06/11/21 Recorded SARS-CoV-2 (COVID-19) mRNA BNT-162b2 vac 06/11/21 Recorded SARS-CoV-2 (COVID-19) mRNA BNT-162b2 vac 12/04/20 Recorded SARS-CoV-2 (COVID-19) mRNA BNT-162b2 vac 11/13/20 Recorded tetanus/diphtheria/pertussis, acel(Tdap) 05/07/21 Given tetanus/diphtheria/pertussis, acel(Tdap) 6 03/05/11 Given Influenza Virus Vaccine (oldterm) 06/08/19 Recorde d Fluarix (oldterm) 7 08/19/13 Given pneumococcal 23-valent vaccine 8 04/01/12 Given 1Result Comment: [facility]#[id number] 2Result Comment: [07/31/2018] [facility]# [id number] 3Result Comment: [08/26/2015] done at [facility] 4Admin Note: VIM 03/17/12 5Admin Note: VIM 04/10/11 6Admin Note: VIM 08/03/08 7Admin Note: VIS GIVEN 04/10/13 8Admin Note: vis given dated 06/21/09 Medications ARIPiprazole 5 mg oral tablet 5 mg, 1, tablet, By Mouth, Daily, # 90 tablet, Refills 1, Tot. Refills 1, Maintenance, 03/01/23 10:12:00 EDT, Route to Pharmacy Electronically, [facility]/pharmacy #[id number], Partial fill upon [...] 06/25/23 10:14:00 EDT, Route to Pharmacy Electronically, [facility]/pharmacy #[id number], 181.5, cm, 06/06/23 16:27:00 EDT, Height, 103, kg, 10/26/22 11:39:00... Start Date: 06/25/23 Stop Date: 12/22/23 Status: Ordered donepezil 10 mg oral tablet 1, tablet, By Mouth, Daily at bedtime, # 90 tablet, Refills 2, Maintenance, 11/10/23 16:19:00 EST, Route to Pharmacy Electronically, [facility] STORE [id number], 181.5, cm, 07/11/23 11:00:00 EDT, Height, 103, kg, 10/26/22 11:39:00 EST, Dry Weight Start Date: 07/26/23 Status: Ordered famotidine 40 mg oral tablet 1 tablet = 40 mg, By Mouth, Daily at bedtime, # 30 tablet, 0 Refills, Maintenance, 07/11/23 13:01:00 EDT, Tablet, [facility]/pharmacy #[id number], Partial fill upon [...] Gm, 0 Refills, Maintenance, 07/11/23 13:02:00 EDT, [place], [facility]/pharmacy #[id number], Partial fill upon patient request if the prescription is for a schedule II opioid drug., 2 sprays Nares, Both Daily, 181.5, cm, 07/11/23 1... Start Date: 07/11/23 Status: Ordered fluticasone 50 mcg/inh nasal spray 2 sprays, Nares, Both, Daily in AM, 0 Refills, Maintenance, 07/14/21 14:22:00 EDT, [place], Partial fill upon patient request if the [...] 03/27/23 17:30:00 EDT, Route to Pharmacy Electronically, [facility]/pharmacy #[id number], override needed for lost prescription, thanks., 181.5, cm, 03/07/23 10:11:0... Start Date: 03/27/23 Status: Ordered levothyroxine 0.2 mg oral tablet 1 tablet = 200 mcg, By Mouth, Daily, # 30 tablet, 5 Refills, Maintenance, 07/14/23 18:02:00 EDT, Tablet, [facility]/pharmacy #[id number], dose reduction, 181.5, [...] Start Date: 07/13/21 Status: Ordered nystatin topical 545154 u/gm powder See Instructions, apply to stump 3 x day, # 120 Gm, 5 Refills, Maintenance, 04/23/23 15:43:00 EDT, Powder, [facility]/pharmacy #[id number], Partial fill upon patient request if the prescription is for a schedule II opioid drug., apply to stump 3 x day, 181.5, cm... Start Date: 04/23/23 Status: Ordered nystatin topical 260194 u/gm powder See Instructions, apply to stump 3 x day, # 120 Gm, 5 Refills, Maintenance, 07/06/21 12:35:00 EDT, Powder, [facility]/pharmacy #[id number], Partial fill upon [...] capsule, 1 Refills, Maintenance,06/25/23 10:14:00 EDT, Capsule, [facility]/pharmacy #[id number], Partial fill upon patient request if the prescription is for a schedule II opioid drug., 181.5, cm,... Start Date: 06/25/23 Stop Date: 12/22/23 Status: Ordered ramelteon 8 mg oral tablet 1 tablet = 8 mg, By Mouth, Daily at bedtime, # 90 tablet, 1 Refills, Maintenance, 06/25/23 10:14:00EDT, Tablet, [facility]/pharmacy #[id number], Partial fill upon [...] film, 0 Refills, Maintenance, 06/25/23 10:13:00 EDT, [facility]/pharmacy #[id number], [id number], 1.5 films sublingual in AM, 1 film sublingual in PM, 181.5, cm, 06/06/23 16:27:00 EDT, [place]... Start Date: 06/25/23 Status: Ordered tamsulosin 0.4 mg oral capsule 0.4 mg, 1, capsule, By Mouth, Daily, # 90 capsule, Refills 3, Tot. Refills 3, Maintenance, 12/20/2315:00:00 EDT, Route to Pharmacy Electronically, [facility]/pharmacy #[id number], Partial fill upon patient request if the [...] Team Personnel Name: Cayla Herrera RN Position: [facility] ED RN W/OE and Tasks Member Role: Primary Care Nurse Name: Alka Lee RN Position: [facility] RN Member Role: Primary Care Nurse Name: Jaleel Lo RN Position: [facility] RN Member Role: Primary Care Nurse Name: Ivy Smith RN Position: [facility] RN Member Role: Primary Care Nurse Name: Efra Mejia MD Position: [facility] Physician - Primary Care Member Role: PCP Address: Address: [address] [place] [address] Name: Devorah Johnson RN Position: [facility] RN Member Role: Primary Care Nurse Name: Dustin Chavez RN Position: [facility] RN Member Role: Primary Care Nurse Name: Litzy Weinberg RN Position: [facility] RN Member Role: Primary Care Nurse Name: Melanie Garay Position: [facility] RN Member Role: Primary Care Nurse Name: Yoselyn Patrick RN Position: [facility] RN Member Role: Primary Care Nurse Name: Michelle Akbar [place] Position: [facility] RN Member Role: Primary Care Nurse Name: Saundra Gonzalez Position: [facility] RN Member Role: Primary Care Nurse Name: Sofía Moreno RN Position: [facility] RN Member Role: Primary Care Nurse Name: Sary Tong RN Position: [facility] RN Member Role: Primary Care Nurse Name: Danielito Woo RN Position: [facility] Hospital Customs Agent Member Role: Primary Care Nurse Care Team Related Persons Name: TINY STEPHENS Address: [address] [place] [address] Name: FERNIE CUMMINS Address: [address] [place] [address] Name: TINY CUMMINS Address: [address] [place] [address]
--- OUTSIDE RECORDS SUMMARY | 2023-10-18 20:38 | XMS_ITS | Continuity of Care Document ---
Author Name Unknown Organization [facility] Address [address] [place] [address]- Care Team Providers Care Chinchilla Farmer Name Role Phone Efra Mejia MD Primary Care Physician Encounter [facility] Date(s): 08/19/20 - 09/18/20 [facility] [address] [place] [address]- Allergies, Adverse Reactions, Alerts Substance Reaction Severity [...] acel(Tdap) 7 03/05/11 Given 1Result Comment: [07/31/2018] [facility]# [id number] 2Result Comment: [08/26/2015] done at [facility] [employer] 3Admin Note: VIM 03/17/12 4Admin Note: VIM 04/10/11 5Admin Note: VIS GIVEN 04/10/13 6Admin Note: vis given dated 06/21/09 7Admin Note: VIM 08/03/08 Medications albuterol CFC free 90 mcg/inh inhalation aerosol 1, puffs, Inhalation, 4 times a day, PRN, # 18 Gm, Refills 0, Tot. Refills 0, Maintenance, 12/02/2009:56:00 EDT, Aerosol, Route to Pharmacy Electronically, [id number], [facility]/pharmacy #[id number], 180.3, cm, 11/12/19 15:07:00 [...] Maintenance, 07/02/16 16:06:12, Route to Pharmacy Electronically, [id number], [facility] #[id number] Start Date: [...] Dry Weight Start Date: 07/10/20 Stop Date: 4/23/21 Status: Ordered lisinopril 20 mg oral tablet 40 mg, 2, tablet, By Mouth, Daily, Refills 0, Maintenance, 07/10/20 12:49:00 EDT Start Date: 07/10/20 Status: Ordered Mavyret 100 mg-40 mg oral tablet 3 tablet, By Mouth, Daily, x 8 weeks, # 84 tablet, 1 Refills, Maintenance, 02/05/20 14:18:00 EDT, Tablet, [facility], 3 tablet By Mouth Daily,Instr:x 8 weeks, 180.3, cm, 01/19/20 14:07:00 EDT, Height, 120.7, kg, 11/03/19 13:31:00 EST,... Start Date: 02/05/20 Status: Ordered melatonin 5 mg oral capsule 1 capsule = 5 mg, By Mouth, Daily at bedtime, # 30 capsule, 2 Refills, Maintenance, 07/10/20 12:51:00 EDT, [facility]/pharmacy #[id number], 183, cm, 07/10/20 3:29:00 EDT, Height, 119, kg, 07/09/20 0:11:00 EDT, Dry Weight Start Date: 07/10/20 Status: Ordered MiraLax oral powder for reconstitution = 17 Gm, By Mouth, Daily, dissolve in water before taking, # 527 Gm, 5 Refills, Maintenance, 06/21/20 14:32:00 EDT, REC Powder, [facility]/pharmacy #[id number], 17 Gm By Mouth [...] 5 Refills, Maintenance, 05/26/20 17:50:00 EDT, ECCapsule, [facility]/pharmacy #[id number], 180.3, cm, 05/06/20 16:07:00 EDT, Height, 120.7, kg, 11/03/19 13:31:00EST, Dry Weight Start Date: 05/26/20 Status: Ordered Pen [place], 29 G x 12.7 mm BD Ultra Fine See Instructions, # 1 box, Refills 3, Tot. Refills 3, Maintenance, use with NOvolog Pen injection twice daily, 06/18/19 9:42:43 EDT, Compound Start Date: 06/18/19 Status: Ordered tamsulosin 0.4 mg oral capsule 0.4 mg, 1, capsule, By Mouth, Daily, # 30 capsule, Refills 11, Tot. Refills 11, Maintenance, 07/05/20 16:10:00 EDT, Route to Pharmacy Electronically, [facility]/pharmacy #[id number], 180.3, cm, 06/21/20 13:42:00 EDT, Height, 120.7, kg, 11/03/19 13:31:00 EST, Dry W... Start Date: 07/05/20 Status: Ordered traZODone 50 mg oral tablet 25 mg, By Mouth, Daily at bedtime, PRN, # 30 tablet, Refills 1, Tot. Refills 1, Maintenance, Insomnia, 07/10/20 12:52:00 EDT, Route to Pharmacy Electronically, [facility]/pharmacy #[id number], 183, cm, 07/10/20 3:29:00 EDT, Height, [...]
--- OUTSIDE RECORDS SUMMARY | 2023-10-18 20:38 | XMS_ITS | Continuity of Care Document ---
Author Name Unknown Organization [facility] Address [address] [place] [address]- Care Team Providers Care Breakdown Mill Operator Name Role Phone Roberto CH, Efra Miramontes Primary Care Physician [phone] Encounter [place] Date(s): 07/14/21 - 07/19/[address] [address] Discharge Disposition: Disch/Trans to IP Rehab or unit w/in Hos Attending Physician: Carrillo CH, Ryanne Guerrero Admitting Physician: Arlene An DO Referring Physician: Not on Staff, Referring [...] 23-valent vaccine 8 04/01/12 Given 1Result Comment: [facility]#[id number] 2Result Comment: [07/31/2018] [facility]# [id number] 3Result Comment: [08/26/2015] done at [facility] [...] 07/23/21 10:09:00 EST, 07/19/21 10:09:00 EDT, Tablet, [facility]/pharmacy [...] AM, 0 Refills, Maintenance, 07/14/21 14:22:00 EDT, [place], Partial fill upon patient request if the [...] opioid drug. Start Date: 07/14/21 Status: Ordered gabapentin 300 mg oral capsule 300 mg, Capsule, By Mouth, home dose, 07/19/21 9:00:00 EDT Start Date: 07/19/21 Stop Date: 07/19/21 Status: Completed levothyroxine 0.112 mg oral tablet 2 tablet = 224 mcg, By Mouth, Daily, # 60 tablet, 5 Refills, Maintenance, 10/27/20 10:22:00 EST, Tablet, [facility]/pharmacy #[id number], 183, cm, 10/27/20 8:41:00 EST, Height, [...] Start Date: 07/13/21 Status: Ordered nystatin topical 554887 u/gm powder See Instructions, apply to stump [...] Weight Start Date: 10/27/20 Status: Ordered prazosin 1 mg oral capsule 2 mg, Capsule, By Mouth, 07/18/21 21:00:00 EDT Start Date: 07/18/21 Stop Date: 07/18/21 Status: Completed prazosin 2 mg oral capsule 1 capsule [...] Refills, Maintenance, 07/06/21 12:35:00 EDT, Solution, [facility]/pharmacy #[id number], Partial fill upon patient request ifthe [...] Results Orders for Microbiology Reports Name Date Anaerobic Culture (ANAEROBIC CULTURE) Wound Deep Culture w/ Gram Smear (DEEP W OUND CULTURE) 07/15/21 Microbiology Reports TEST:Anaerobic Culture STATUS:Auth (Verified) BODY SITE: SOURCE:FLUID COLLECTED DATE/TIME:07/15/21 12:00 PM Anaerobic Culture SPECIMEN DESCRIPTION : FLUID RIGHT LEG ABCESS SPECIAL REQUESTS : NONE CULTURE : NO ANAEROBES ISOLATED REPORT STATUS : FINAL 07/17/2021 TEST:Deep Wound Culture STATUS:Auth (Verified) BODY SITE: SOURCE:ABSCES COLLECTED DATE/TIME:07/15/21 12:00 PM Deep Wound Culture SPECIMEN DESCRIPTION : ABSCESS RIGHT LEG ABCESS SPECIAL REQUESTS : NONE GRAM STAIN : 3+ POLYMORPHONUCLEAR LEUKOCYTES 1+ TISSUE CELLS 2+ GRAM POSITIVE COCCI CULTURE : 4+ STAPHYLOCOCCUS AUREUS, METHICILLIN RESISTANT. METHICILLIN RESISTANT STAPH AUREUS SHOULD BE CONSIDERED CLINICALLY RESISTANT TO ALL BETA-LACTAMS. REPORT STATUS : FINAL 07/17/2021 ORGANISM 4+ STAPHYLOCOCCUS AUREUS, METHICILLIN RESISTANT. METHICILLIN RESISTANT STAPH AUREUS SHOULD BE CONSIDERED CLINICALLY RESISTANT TO ALL BETA-LACTAMS. METHOD MIN. INHIB. CONC. (MCG/ML) CIPROFLOXACIN RESISTANT CLINDAMYCIN RESISTANT ERYTHROMYCIN RESISTANT INDUCIBLE CLINDAMYCI POSITIVE LEVOFLOXACIN RESISTANT LINEZOLID SUSCEPTIBLE OXACILLIN RESISTANT RIFAMPIN SUSCEPTIBLE RIFAMPIN RIFAMPIN SHOULD NOT BE USED ALONE FOR ANTIMICROBIAL RIFAMPIN THERAPY. TETRACYCLINE RESISTANT TRIMETH/SULFAMETHOX SUSCEPTIBLE VANCOMYCIN SUSCEPTIBLE Radiology Reports * Exam Date Time Procedure Performing Provider Status 07/13/21 6:46 PM Tibia/Fibula 2 Views Right Mary Kay Rubio; Auth (Verified) Notes: (Tibia/Fibula 2 Views Right) Reason For Exam: R BKA infection;Infection RESULT: Tibia/Fibula 2 Views Right Tibia/Fibula 2 Views Right INDICATION: Hx of Present Illness: stump bleeding from stump.: Infection; right BKA infection; Clinical Question(s): Osteomyelitis. Below-knee amputation approximately 6 years ago. TECHNIQUE: AP and lateral views. COMPARISON: Preoperative exam 02/10/2016. FINDINGS: There is no fracture or focal bony lesion. There is no bone destruction or periosteal reaction. Knee joint shows no gross arthritic change and no joint effusion. No gas or opaque foreign body in the soft tissues. The soft tissues of the stump of the soft tissue density rather than being fatty.. IMPRESSION: 1. Status post below knee amputation.. 2. No acute bone or joint abnormality including no fracture, evidence of osteomyelitis, or joint effusion. 3. Soft tissues of the stump are of higher density than usual, being more some homogeneous soft tissue density rather than containing fatty elements. Given the patient's abnormal bleeding this could be contributed to by some degree of hematoma but this cannot be accurately determined on plain film exam. WSN: [id number] Ordering Physician: Rafita Dixon Dictated By: Galen Sheffield MD Dictated Date/Time: 07/13/21 6:54 pm Reviewed By: Galen Sheffield MD Signed By: Galen Sheffield MD Signed Date/Time: 07/13/21 6:54 pm Transcribed By: CATARINO Transcribed Date/Time: 07/13/21 6:51 pm Vital Signs Most recent to oldest [Reference Range]: 1 2 3 Oxygen Saturation [94-100 %] 95 % (07/19/21 4:28 AM) 95 % (07/18/21 8:13 PM) 95 % (07/18/21 2:00 PM) Pulse Rate [55-90 bpm] 65 bpm (07/19/21 4:28 AM) 69 bpm (07/18/21 8:13 PM) 72 bpm (07/18/21 2:00 PM) Blood Pressure [90-138/55-84 mm Hg] 111/64mm Hg (07/19/21 4:28 AM) 116/55mm Hg (07/18/21 8:13 PM) 116/55mm Hg (07/18/21 7:55 PM) Respiratory Rate [16-30 br/min] 18 br/min (07/19/21 10:05 AM) 18 br/min (07/19/21 9:27 AM) 16 br/min (07/19/21 4:28 AM) Temperature [96.8-100.4 DegF] 97.7 DegF (07/19/21 4:28 AM) 98.6 DegF (07/18/21 8:13 PM) 98.0 DegF (07/18/21 2:00 PM) Liters per Minute 2 L/min (07/15/21 12:37 PM) 2 L/min (07/15/21 11:40 AM) 2 L/min (07/15/21 11:35 AM) Mode of Delivery (Oxygen) Room air (07/19/21 4:28 AM) Room air (07/18/21 8:13 PM) Room air (07/18/21 2:00 PM) Blood pressure sites Arm, right (07/18/21 2:00 PM) Arm, right (07/18/21 9:00 AM) Arm, right (07/18/21 5:37 AM) Temperature Route Oral (07/19/21 4:28 AM) Oral (07/18/21 8:13 PM) Oral (07/18/21 2:00 PM) Dry Weight 105 kg (07/15/21 10:52 AM) Social History Social History Type Response Tobacco Other: 3 cigars brenden y. Sex Male
--- OUTSIDE RECORDS SUMMARY | 2023-10-18 20:38 | XMS_ITS | Continuity of Care Document ---
Author Name Unknown Organization [facility] Address [address] [place] [address]- Care Team Providers Care Insights Manager Name Role Phone Roberto CH, Efra Miramontes Primary Care Physician [phone] Encounter [facility] Date(s): 12/06/22 - 01/05/23 [facility] [address] [place], [place] [address] Allergies, Adverse Reactions, Alerts No Known [...] 23-valent vaccine 8 04/01/12 Given 1Result Comment[facility]#[id number] 2Result Comment: [07/31/2018] [facility]# [id number] 3Result Comment: [08/26/2015] done at [facility] 4Admin Note: VIM 03/17/12 5Admin Note: VIM 04/10/11 6Admin Note: VIM 08/03/08 7Admin Note: VIS GIVEN 04/10/13 8Admin Note: vis given dated 06/21/09 Medications ARIPiprazole 5 mg oral tablet 5 mg, 1, tablet, By Mouth, Daily, # 90 tablet, Refills 1, Tot. Refills 1, Maintenance, 09/28/22 8:16:00 EST, Route to Pharmacy Electronically, [facility]/pharmacy #[id number], Partial fill upon patient request ifthe prescription is for a schedule II opioid drug.,... Start Date: 09/28/22 Stop Date: 03/27/23 Status: Ordered citalopram 40 mg oral tablet 40 mg, 1, tablet, By Mouth, Daily, Take with food., # 90 tablet, Refills 1, Tot. Refills 1, Maintenance, 09/28/22 8:16:00 EST, Route to Pharmacy Electronically, [facility]/pharmacy #[id number], 181.5, cm, 08/30/22 16:11:00 EST, Height, 105, kg, 09/26/21 3:23:00 ES... Start Date: 09/28/22 Stop Date: 03/27/23 Status: Ordered donepezil 10 mg oral tablet 10 mg, 1, tablet, By Mouth, Daily at bedtime, # 90 tablet, Refills 2, Tot. Refills 2, Maintenance, 10/11/22 12:01:00 EST, Route to Pharmacy Electronically, [facility]/pharmacy #[id number], Partial fill upon patient request [...] AM, 0 Refills, Maintenance, 07/14/21 14:22:00 EDT, [place], Partial fill upon patient request if the [...] 12/23/22 8:36:00 EDT, Route to Pharmacy Electronically, [facility]/pharmacy #[id number], Partial fill upon patient request if the prescription is for a schedule II o... Start Date: 12/23/22 Status: Ordered levothyroxine 0.112 mg oral tablet 2 tablet = 224 mcg, By Mouth, Daily, # 60 tablet, 2 Refills, Maintenance, 12/19/22 16:00:00 EDT, Tablet, [facility]/pharmacy #[id number], 181.5, cm, 10/26/22 11:39:00 EST, [...] Start Date: 07/13/21 Status: Ordered nystatin topical 040012 u/gm powder See Instructions, apply to stump 3 x day, # 120 Gm, 5 Refills, Maintenance, 07/06/21 12:35:00 EDT, Powder, [facility]/pharmacy #[id number], Partial fill upon patient request if the prescription is for a schedule II opioid drug., apply to stump 3 x day, 180, cm,... Start Date: 07/06/21 Status: Ordered omeprazole 20 mg oral enteric coated capsule 1 capsule = 20 mg, By Mouth, Daily, # 30 capsule, 0 Refills, Maintenance, 12/19/22 16:00:00 EDT, ECCapsule, [facility]/pharmacy #[id number], 181.5, cm, 10/26/22 11:39:00 EST, [...] 1 Refills, Maintenance, 09/28/22 8:16:00 EST, Tablet, [facility]/pharmacy #[id number], Partial fill upon patient request [...] in AM, 1 film sublingual in PM [id number], # 75 film, 1 Refills, Maintenance, 12/18/22 8:06:00 EDT, [facility]/pharmacy #[id number], 1.5 films sublingual in AM, 1 film sublingual in PM ; [id number], 181.5, cm, 10/26/22 11:39:... Start Date: 12/18/22 Status: Ordered tamsulosin 0.4 mg oral capsule 0.4 mg, 1, capsule, By Mouth, Daily, # 90 capsule, Refills 3, Tot. Refills 3, Maintenance, 12/20/2315:00:00 EDT, Route to Pharmacy Electronically, [facility]/pharmacy #[id number], Partial fill upon patient request if the [...] Team Personnel Name: Alka Lee RN Position: [facility] RN Member Role: Primary Care Nurse Name: Jaleel Lo RN Position: [facility] RN Member Role: Primary Care Nurse Name: Ivy Smith RN Position: [facility] RN Member Role: Primary Care Nurse Name: Efra Mejia MD Position: [facility] Primary Care Physician Member Role: PCP Address: Address: [address] [place] [address] Name: Devorah Johnson RN Position: [facility] RN Member Role: Primary Care Nurse Name: Dustin Chavez RN Position: [facility] RN Member Role: Primary Care Nurse Name: Litzy Weinberg RN Position: [facility] RN Member Role: Primary Care Nurse Name: Melanie Garay Position: [facility] RN Member Role: Primary Care Nurse Name: Michelle Buckley Position: [facility] RN Member Role: Primary Care Nurse Name: Saundra Gonzalez Position: [facility] RN Member Role: Primary Care Nurse Name: Sofía Moreno RN Position: [facility] RN Member Role: Primary Care Nurse Name: Sary Tong RN Position: [facility] RN Member Role: Primary Care Nurse Name: Sophia Lomas RN Position: [facility] RN Member Role: Primary Care Nurse Name: Danielito Woo RN Position: [facility] Hospital Sleeping Car Conductor Member Role: Primary Care Nurse Care Team Related Persons Name: TINY STEPHENS Address: [address] [place] [address] Name: FERNIE CUMMINS Address: [address] [place] [address] Name: TINY CUMMINS Address: [address] [place] [address]
--- OUTSIDE RECORDS SUMMARY | 2023-10-18 20:38 | XMS_ITS | Continuity of Care Document ---
Author Name Unknown Organization [facility] Address [address] [place] [address]- Care Team Providers Care Certified Surgical First Assistant Name Role Phone Efra Mejia MD Primary Care Physician [facility] [facility] [place] 11/02/20 - 12/10/20 [facility] [address] [place] [address]- Attending Physician: Efra Mejia MD Allergies, Adverse [...] acel(Tdap) 7 03/05/11 Given 1Result Comment: [07/31/2018] [facility]# [id number] 2Result Comment: [08/26/2015] done at [facility] 3Admin Note: VIM 03/17/12 4Admin Note: VIM 04/10/11 5Admin Note: VIS GIVEN 04/10/13 6Admin Note: vis given dated 06/21/09 7Admin Note: VIM 08/03/08 Medications albuterol CFC free 90 mcg/inh inhalation aerosol 1, puffs, Inhalation, 4 times a day, PRN, # 18 Gm, Refills 0, Tot. Refills 0, Maintenance, 12/02/2009:56:00 EDT, Aerosol, Route to Pharmacy Electronically, [id number], [facility]/pharmacy #[id number], 180.3, cm, 11/12/19 15:07:00 EST, [...] Maintenance, 07/02/16 16:06:12, Route to Pharmacy Electronically, [id number], [facility] #[facility] Start Date: [...] 10:24:00 EST, [facility] to Pharmacy Electronically, [facility] Refills, Maintenance, 10/27/20 10:22:00 EST, Solution, [facility]/pharmacy #[id number], 183, cm, 10/27/20 8:41:00 EST, Height, 119, kg, 09/23/20 17:06:00 EST, Dry Weight Start Date: 10/27/20 Status: Ordered levothyroxine 0.112 mg oral tablet 2 tablet = 224 mcg, By Mouth, Daily, # 60 tablet, 5 Refills, Maintenance, 10/27/20 10:22:00 EST, Tablet, [facility]/pharmacy #[id number], 183, cm, 10/27/20 8:41:00 EST, Height, 119, kg, 09/23/20 17:06:00 EST, DryWeight Start Date: 10/27/20 Stop Date: 04/25/21 Status: Ordered lisinopril 20 mg oral tablet 40 mg, 2, tablet, By Mouth, Daily, # 60 tablet, Refills 5, Tot. Refills 5, Maintenance, 10/27/20 10:22:00 EST, Route to Pharmacy Electronically, [facility]/pharmacy #[id number], Partial fill upon patient request if the prescription is for a schedule II opioid drug... Start Date: 10/27/20 Status: Ordered MiraLax oral powder for reconstitution = 17 Gm, By Mouth, Daily, dissolve in water before taking, # 527 Gm, 5 Refills, Maintenance, 10/27/20 10:23:00 EST, REC Powder, [facility]/pharmacy #[id number], 17 Gm By Mouth Daily,Instr:dissolve in water beforetaking, 183, cm, 10/27/20 8:41:00 EST, Height, 119,... Start Date: 10/27/20 Status: Ordered omeprazole 20 mg oral enteric coated capsule 1 capsule = 20 mg, By Mouth, Daily, # 30 capsule, 5 Refills, Maintenance, 10/27/20 10:22:00 EST, ECCapsule, [facility]/pharmacy #[id number], 183, cm, 10/27/20 8:41:00 EST, Height, 119, kg, 09/23/20 17:06:00 EST,Dry Weight Start Date: 10/27/20 Status: Ordered Pen [place], 29 G x 12.7 mm BD Ultra Fine See Instructions, # 1 box, Refills 3, Tot. Refills 3, Maintenance, use with NOvolog Pen injection twice daily, 06/18/19 9:42:43 EDT, Compound Start Date: 06/18/19 Status: Ordered tamsulosin 0.4 mg oral capsule 0.4 mg, 1, capsule, By Mouth, Daily, # 30 capsule, Refills 11, Tot. Refills 11, Maintenance, 10/27/20 10:23:00 EST, Route to Pharmacy Electronically, [facility]/pharmacy #[id number], 183, cm, 10/27/20 8:41:00 EST, [...]
--- OUTSIDE RECORDS SUMMARY | 2023-10-18 20:38 | XMS_ITS | Continuity of Care Document ---
Author Name Unknown Organization [facility] Address [address] [place] [address]- Care Team Providers Care Medical Driver Name Role Phone Efra Mejia MD Primary Care Physician Encounter [facility] Date(s): 04/23/23 - 05/23/23 [facility] [address] [place] [address]- Allergies, Adverse Reactions, Alerts No Known Allergies Immunizations Given and Recorded Vaccine Date Status Refusal Reason SARS-CoV-2 mRNA ([id number]) vax 04/27/22 Recorded influenza virus vaccine, inactivated [...] Given 1Result Comment: [facility]#[id number] 2Result Comment: [07/31/2018] [facility]# [id number] 3Result Comment: [08/26/2015] done at [facility] 4Admin Note: VIM 03/17/12 5Admin Note: VIM 04/10/11 6Admin Note: VIM 08/03/08 7Admin Note: VIS GIVEN 04/10/13 8Admin Note: vis given dated 06/21/09 Medications ARIPiprazole 5 mg oral tablet 5 mg, 1, tablet, By Mouth, Daily, # 90 tablet, Refills 1, Tot. Refills 1, Maintenance, 03/01/23 10:12:00 EDT, Route to Pharmacy Electronically, [facility]/pharmacy #[id number], Partial fill upon patient request [...] 10/11/22 12:01:00 EST, Route to Pharmacy Electronically, [facility]/pharmacy #[id number], Partial fill upon patient request [...] AM, 0 Refills, Maintenance, 07/14/21 14:22:00 EDT, [place], Partial fill upon patient request if the [...] 03/27/23 17:30:00 EDT, Route to Pharmacy Electronically, [facility]/pharmacy #[id number], override needed for lost prescription, thanks., 181.5, cm, 03/07/23 10:11:0... Start Date: 03/27/23 Status: Ordered levothyroxine 0.112 mg oral tablet 2 tablet = 224 mcg, By Mouth, Daily, # 60 tablet, 2 Refills, Maintenance, 03/27/23 12:47:00 EDT, Tablet, [facility]/pharmacy #[id number], 181.5, cm, 03/07/23 10:11:00 EDT, [...] Start Date: 07/13/21 Status: Ordered nystatin topical 445880 u/gm powder See Instructions, apply to stump 3 x day, # 120 Gm, 5 Refills, Maintenance, 04/23/23 15:43:00 EDT, Powder, [facility]/pharmacy #[id number], Partial fill upon patient request if the prescription is for a schedule II opioid drug., apply to stump 3 x day, 181.5, cm... Start Date: 04/23/23 Status: Ordered nystatin topical 420645 u/gm powder See Instructions, apply to stump 3 x day, # 120 Gm, 5 Refills, Maintenance, 07/06/21 12:35:00 EDT, Powder, [facility]/pharmacy #[id number], Partial fill upon patient request if the prescription is for a schedule II opioid drug., apply to stump 3 x day, 180, cm,... Start Date: 07/06/21 Status: Ordered omeprazole 20 mg oral enteric coated capsule 1 capsule = 20 mg, By Mouth, Daily, # 30 capsule, 5 Refills, Maintenance, 01/30/23 13:42:00 EDT, ECCapsule, [facility]/pharmacy #[id number], 181.5, cm, 10/26/22 11:39:00 EST, Height, 103, kg, 10/26/22 11:39:00 EST, Dry Weight Start Date: 01/30/23 Status: Ordered prazosin 2 mg oral capsule 1 capsule = 2 mg, By Mouth, Daily at bedtime, dose reduction, # 90 capsule, 1 Refills, Maintenance,03/01/23 10:12:00 EDT, Capsule, [facility]/pharmacy #[id number], Partial fill upon patient request if the prescription is for a schedule II opioid drug., 181.5, cm,... Start Date: 03/01/23 Stop Date: 08/28/23 Status: Ordered ramelteon 8 mg oral tablet 1 tablet = 8 mg, By Mouth, Daily at bedtime, # 90 tablet, 1 Refills, Maintenance, 03/01/23 10:13:00EDT, Tablet, [facility]/pharmacy #[id number], Partial fill upon patient request [...] in AM, 1 film sublingual in PM [id number], # 75 film, 1 Refills, Maintenance, 04/26/23 8:11:00 EDT, [facility]/pharmacy #[id number], 1.5 films sublingual in AM, 1 film sublingual in PM ; [id number], 181.5, cm, 04/23/23 15:02:... Start Date: 04/26/23 Status: Ordered tamsulosin 0.4 mg oral capsule 0.4 mg, 1, capsule, By Mouth, Daily, # 90 capsule, Refills 3, Tot. Refills 3, Maintenance, 12/20/2315:00:00 EDT, [id number], Partial fill upon patient request [...] Team Personnel Name: .Cayla Jean RN Position: [facility] ED RN W/OE and Tasks Member Role: Primary Care Nurse Name: Alka Lee RN Position: [facility] RN Member Role: Primary Care Nurse Name: Jaleel Lo RN Position: S RN Member Role: Primary Care Nurse Name: Ivy Smith RN Position: [facility] RN Member Role: Primary Care Nurse Name: Efra Mejia MD Position: [facility] Physician - Primary Care Member Role: PCP Address: Address: [address] [place] [id number] Name: Devorah Johnson RN Position: [facility] RN Member Role: Primary Care Nurse Name: Dutsin Chavez RN Position: [facility] RN Member Role: Primary Care Nurse Name: Litzy Weinberg RN Position: [facility] RN Member Role: Primary Care Nurse Name: Melanie Garay Position: [facility] RN Member Role: Primary Care Nurse Name: Yoselyn Patrick RN Position: [facility] RN Member Role: Primary Care Nurse Name: Michelle Akbar [place] Position: [facility] RN Member Role: Primary Care Nurse Name: Saundra Gonzalez Position: [facility] RN Member Role: Primary Care Nurse Name: Sofía Moreno RN Position: [facility] RN Member Role: Primary Care Nurse Name: Sary Tong RN Position: [facility] RN Member Role: Primary Care Nurse Name: Sophia Lomas RN Position: [facility] RN Member Role: Primary Care Nurse Name: Danielito Woo RN Position: [facility] Hospital Mri Technician Member Role: Primary Care Nurse Care Team Related Persons Name: TINY STEPHENS Address: [address] [place], [place] Name: FERNIE CUMMINS Address: [address] [place], [place] Name: TINY CUMMINS Address: home [address], [place]
--- OUTSIDE RECORDS SUMMARY | 2023-10-18 20:38 | XMS_ITS | Continuity of Care Document ---
Author Name Unknown Organization [facility] Address [address] [place] [address]- Care Team Providers Care Supervisor Network Control Operators Name Role Phone Roberto CH, Efra Miramontes Primary Care Physician [phone] Encounter [facility] Date(s): 04/06/21 - 05/06/21 [facility] [address] [place] [address]- Allergies, Adverse Reactions, Alerts Substance Reaction Severity [...] 1Result Comment: [07/31/2018] [facility]# [id number] 2Result Comment: [08/26/2015] done at [facility] [...] Gm, 5 Refills, Maintenance, 12/15/20 12:56:00 EDT, [place], [facility]/pharmacy #[id number], Partial fill upon patient request [...] 10:24:00 EST, Route to Pharmacy Electronically, [facility]/pharmacy #[id number], Partial fill upon patient request [...] 5 Refills, Maintenance, 10/27/20 10:22:00 EST, Solution, [facility]/pharmacy #[id number], 183, cm, 10/27/20 8:41:00 EST, Height, 119, kg, 09/23/20 17:06:00 EST, Dry Weight Start Date: 10/27/20 Status: Ordered levothyroxine 0.112 mg oral tablet 2 tablet = 224 mcg, By Mouth, Daily, # 60 tablet, 5 Refills, Maintenance, 10/27/20 10:22:00 EST, Tablet, [facility]/pharmacy #[id number], 183, cm, 10/27/20 8:41:00 EST, Height, 119, kg, 09/23/20 17:06:00 EST, DryWeight Start Date: 10/27/20 Stop Date: 04/25/21 Status: Ordered Lidoderm 5% film 1 patch, Topically, Daily, # 30 patch, 0 Refills, Maintenance, 04/03/21 9:04:00 EDT, [facility]/pharmacy #[id number], Partial fill upon patient request if the prescription is for a schedule II opioid drug., 1 patch Topically Daily, 180, cm, 04/03/21 7:30:00 EDT, H... Start Date: 04/03/21 Status: Ordered lisinopril 20 mg oral tablet 40 mg, 2, tablet, By Mouth, Daily, # 60 tablet, Refills 5, Tot. Refills 5, Maintenance, 10/27/20 10:22:00 EST, Route to Pharmacy Electronically, [facility]/pharmacy #[id number], Partial fill upon patient request if the prescription is for a schedule II opioid drug... Start Date: 10/27/20 Status: Ordered Melatonin 5 mg oral tablet 1 tablet = 5 mg, By Mouth, Daily at bedtime, # 30 tablet, 5 Refills, Maintenance, 12/15/20 12:56:00EDT, Tablet, [facility]/pharmacy #[id number], Partial fill upon patient request if the prescription is for a schedule II opioid drug., 183, cm, 12/15/20 11:23:00 ED... Start Date: 12/15/20 Status: Ordered nystatin topical 681150 u/gm powder See Instructions, apply to stump daily, # 30 Gm, 5 Refills, Maintenance, 12/15/20 12:56:00 EDT, Powder, [facility]/pharmacy #[id number], Partial fill upon patient request if the prescription is for a schedule II opioid drug., apply to stump daily, 183, cm, ... Start Date: 12/15/20 Status: Ordered omeprazole 20 mg oral enteric coated capsule 1 capsule = 20 mg, By Mouth, Daily, # 30 capsule, 5 Refills, Maintenance, 10/27/20 10:22:00 EST, ECCapsule, [facility]/pharmacy #[id number], 183, cm, 10/27/20 8:41:00 EST, Height, 119, kg, 09/23/20 17:06:00 EST,Dry Weight Start Date: 10/27/20 Status: Ordered Pen [place], 29 G x 12.7 mm BD Ultra [...] 12:56:00 EDT, Route to Pharmacy Electronically, [facility]/pharmacy #[id number], 183, cm, 12/15/20 11:23:00 EDT, [...]
--- OUTSIDE RECORDS SUMMARY | 2023-10-18 20:38 | XMS_ITS | Continuity of Care Document ---
Author Name Unknown Organization [facility] Address [address] [place] [address]- Care Team Providers Care Senior Database Programmer Name Role Phone Roberto CH, Efra Miramontes Primary Care Physician Encounter [facility] Date(s): 02/14/21 - 03/16/21 [facility] [address] [place] [address]- Allergies, Adverse Reactions, Alerts Substance Reaction Severity [...] Re corded influenza virus vaccine, inactivated 05/18/15 Ancho rded influenza virus vaccine, inactivated 3 08/13/12 Gi raheem influenza virus vaccine, inactivated 4 08/16/11 Gi raheem Influenza Virus Vaccine (oldterm) 06/08/19 Recorde d Fluarix (oldterm) 5 08/19/13 Given pneumococcal 23-valent vaccine 6 04/01/12 Given tetanus/diphtheria/pertussis, acel(Tdap) 7 03/05/11 Given 1Result Comment: [07/31/2018] [facility]# [id number] 2Result Comment: [08/26/2015] [facility] 3Admin Note: VIM 03/17/12 4Admin Note: VIM 04/10/11 5Admin Note: VIS GIVEN 04/10/13 6Admin Note: vis given dated 06/21/09 7Admin Note: VIM 08/03/08 Medications albuterol CFC free 90 mcg/inh inhalation aerosol 1, puffs, Inhalation, 4 times a day, PRN, # 18 Gm, Refills 0, Tot. Refills 0, Maintenance, 12/02/2009:56:00 EDT, Aerosol, Route to Pharmacy Electronically, [id number], [facility]/pharmacy #[id number], 180.3, cm, 11/12/19 15:07:00 EST, He... [...] Gm, 5 Refills, Maintenance, 12/15/20 12:56:00 EDT, [place], [facility]/pharmacy #[id number], Partial fill upon patient request if [...] Maintenance, 07/02/16 16:06:12, Route to Pharmacy Electronically, [id number], [facility] Start Date: [...] 10:24:00 EST, Route to Pharmacy Electronically, [facility]/pharmacy #[id number], Partial fill upon patient request if [...] Refills, Maintenance, 10/27/20 10:22:00 EST, Solution, [facility]/pharmacy #[id number], 183, cm, 10/27/20 8:41:00 EST, Height, 119, kg, 09/23/20 17:06:00 EST, Dry Weight Start Date: 10/27/20 Status: Ordered levothyroxine 0.112 mg oral tablet 2 tablet = 224 mcg, By Mouth, Daily, # 60 tablet, 5 Refills, Maintenance, 10/27/20 10:22:00 EST, Tablet, [facility]/pharmacy #[id number], 183, cm, 10/27/20 8:41:00 EST, Height, 119, kg, 09/23/20 17:06:00 EST, DryWeight Start Date: 10/27/20 Stop Date: 04/25/21 Status: Ordered lisinopril 20 mg oral tablet 40 mg, 2, tablet, By Mouth, Daily, # 60 tablet, Refills 5, Tot. Refills 5, Maintenance, 10/27/20 10:22:00 EST, Route to Pharmacy Electronically, [facility]/pharmacy #[id number], Partial fill upon patient request if the prescription is for a schedule II opioid drug... Start Date: 10/27/20 Status: Ordered Melatonin 5 mg oral tablet 1 tablet = 5 mg, By Mouth, Daily at bedtime, # 30 tablet, 5 Refills, Maintenance, 12/15/20 12:56:00EDT, Tablet, [facility]/pharmacy #[id number], Partial fill upon patient request if the prescription is for a schedule II opioid drug., 183, cm, 12/15/20 11:23:00 ED... Start Date: 12/15/20 Status: Ordered MiraLax oral powder for reconstitution = 17 Gm, By Mouth, Daily, dissolve in water before taking, # 527 Gm, 5 Refills, Maintenance, 10/27/20 10:23:00 EST, REC Powder, [facility]/pharmacy #[id number], 17 Gm By Mouth Daily,Instr:dissolve in water beforetaking, 183, cm, 10/27/20 8:41:00 EST, Height, 119,... Start Date: 10/27/20 Status: Ordered nystatin topical 455645 u/gm powder See Instructions, apply to stump daily, # 30 Gm, 5 Refills, Maintenance, 12/15/20 12:56:00 EDT, Powder, [facility]/pharmacy #[id number], Partial fill upon patient request if the prescription is for a schedule II opioid drug., apply to stump daily, 183, cm, ... Start Date: 12/15/20 Status: Ordered omeprazole 20 mg oral enteric coated capsule 1 capsule = 20 mg, By Mouth, Daily, # 30 capsule, 5 Refills, Maintenance, 10/27/20 10:22:00 EST, ECCapsule, [facility]/pharmacy #[id number], 183, cm, 10/27/20 8:41:00 EST, Height, 119, kg, 09/23/20 17:06:00 EST,Dry Weight Start Date: 10/27/20 Status: Ordered Pen [place], 29 G x 12.7 mm BD Ultra [...] 12:56:00 EDT, Route to Pharmacy Electronically, [facility]/pharmacy #[id number], 183, cm, 12/15/20 11:23:00 EDT, Height, [...] 5 Refills, Maintenance, 12/15/20 12:38:00 EDT, Solution, [facility]/pharmacy #[id number], Partial fill upon patient request if the prescription is for a schedule II opioid drug., 183, cm, 04/01/21 11:2... Start Date: 12/15/20 Status: Ordered Walker [...]
--- OUTSIDE RECORDS SUMMARY | 2023-10-18 20:38 | XMS_ITS | Continuity of Care Document ---
Author Name Unknown Organization [facility] Address [address] [place] [address]- Care Team Providers Care Underwear Cutter Name Role Phone Roberto CH, Efra Miramontes Primary Care Physician [facility] Date[facility]): [facility] - [facility]/12/21 [facility] [address] [place] [address]- Allergies, Adverse Reactions, Alerts Substance Reaction Severity [...] 1Admin Note: VIM 08/03/08 2Result Comment: [07/31/2018] [facility] [place]# [id number] 3Result Comment: [08/26/2015] done at [facility] [...] Gm, 5 Refills, Maintenance, 12/15/20 12:56:00 EDT, [place], [id number], Partial fill upon patient request [...] patch, 0 Refills, Maintenance, 04/03/21 9:04:00 EDT, [facility]/pharmacy #[id number], Partial fill upon patient request if the prescription is for a schedule II opioid drug., 1 patch Topically Daily, 180, cm, 04/03/21 7:30:00 EDT, H... Start Date: 04/03/21 Status: Ordered lisinopril 20 mg oral tablet 20 mg, 1, tablet, By Mouth, Daily, # 30 tablet, Refills 0, Tot. Refills 0, Maintenance, 05/09/21 9:00:00 EDT, Route to Pharmacy Electronically, [facility]/pharmacy #[id number], Partial fill upon patient request if the prescription is for a schedule II opioid drug.... Start Date: 05/09/21 Status: Ordered nystatin topical 033713 u/gm powder See Instructions, apply to stump daily, # 30 Gm, 5 Refills, Maintenance, 12/15/20 12:56:00 EDT, Powder, [facility]/pharmacy #[id number], Partial fill upon patient request if the prescription is for a schedule II opioid drug., apply to stump daily, 183, cm, ... Start Date: 12/15/20 Status: Ordered omeprazole 20 mg oral enteric coated capsule 1 capsule = 20 mg, By Mouth, Daily, # 30 capsule, 5 Refills, Maintenance, 10/27/20 10:22:00 EST, ECCapsule, [facility]/pharmacy #[id number], 183, cm, 10/27/20 8:41:00 [...] Refills, Maintenance, 12/15/20 12:38:00 EDT, [place], [id number], Partial fill upon patient request if the [...]
[2023-10-18 20:39] LABS: MANUAL DIFF FLAG NO
--- OUTSIDE RECORDS SUMMARY | 2023-10-18 20:39 | XMS_ITS | Continuity of Care Document ---
Author Name Unknown Organization [facility] em Address Unknown Care Team Providers Care Insurance Agent Name Role Phone Efra Mejia MD Primary Care Physician Encounter [facility] Date(s): 10/26/22 - 11/02/22 [facility] Encounter Diagnosis Left groin pain(Discharge Diagnosis) - 10/26/22 Attending Physician: Sherice Shafer MD Admitting Physician: Soni CH, Sherice Referring Physician: Efra Mejia MD Allergies, Adverse [...] Given 1Result Comment: [facility]#[id number] 2Result Comment: [07/31/2018] [facility]# [id number] 3Result Comment: [08/26/2015] done at [facility] 4Admin Note: VIM 03/17/12 5Admin Note: VIM 04/10/11 6Admin Note: VIM 08/03/08 7Admin Note: VIS GIVEN 04/10/13 8Admin Note: vis given dated 06/21/09 Medications ARIPiprazole 5 mg oral tablet 5 mg, 1, tablet, By Mouth, Daily, # 90 tablet, Refills 1, Tot. Refills 1, Maintenance, 09/28/22 8:16:00 EST, [facility], [facility] AM, 0 Refills, Maintenance, 07/14/21 14:22:00 EDT, [place], Partial fill upon patient request if the [...] 09/17/22 12:54:00 EST, Route to Pharmacy Electronically, [facility]/pharmacy #[id number], Partial fill upon patient request if the prescription is for a schedule II... Start Date: 09/17/22 Status: Ordered levothyroxine 0.112 mg oral tablet 2 tablet = 224 mcg, By Mouth, Daily, # 60 tablet, 2 Refills, Maintenance, 09/05/22 12:50:00 EST, Tablet, [facility]/pharmacy #[id number], 181.5, cm, 08/30/22 16:11:00 [...] Start Date: 07/13/21 Status: Ordered nystatin topical [id number] u/gm powder See Instructions, apply to stump [...] 0 Refills, Maintenance, 08/28/22 13:07:00 EST, ECCapsule, [facility]/pharmacy #[id number], 181.5, cm, 05/08/22 8:39:00 [...] 1 Refills, Maintenance, 09/28/22 8:16:00 EST, Tablet, [facility]/pharmacy #[id number], Partial fill [...] in AM, 1 film sublingual in PM [id number], # 75 film, 1 Refills, Maintenance, 09/28/22 8:16:00 EST, [id number], 1.5 films sublingual in AM, 1 film sublingual in PM ; [id number], 181.5, cm, 08/30/22 16:11:... Start Date: 09/28/22 Status: Ordered tamsulosin 0.4 mg oral capsule 0.4 mg, 1, capsule, By Mouth, Daily, # 90 capsule, Refills 3, Tot. Refills 3, Maintenance, 07/06/2111:55:00 EDT, Route to Pharmacy Electronically, [facility]/pharmacy #[id number], Partial fill upon patient request if the [...] Dates Health Status Cl inical Service Informant Left groin pain Discharge Diagnosis 10/26/22 Vital Signs Most recent to oldest [Reference Range]: 1 Height 181.5 cm (10/26/22 11:39 AM) Weight 103 kg (10/26/22 11:39 AM) Oxygen Saturation [94-100 %] 97 % (10/26/22 11:39 AM) Pulse Rate [55-90 bpm] 76 bpm (10/26/22 11:39 AM) Body Mass Index [18.5-24.99 kg/m2] 31.27 kg/m2 *>HHI* (10/26/22 11:39 AM) Blood Pressure [90-138/55-84 mm Hg] 100/ 67mm Hg (10/26/22 11:39 AM) Respiratory Rate [16-30 br/min] 18 br/mi n (10/26/22 11:39 AM) Temperature [96.8-100.4 DegF] 97.7 DegF (10/26/22 11:39 AM) Mode of Delivery (Oxygen) Room air (10/26/22 11:39 AM) Blood pressure sites Arm, left (10/26/22 11:39 AM) Temperature Route Temporal (10/26/22 11:39 AM) Dry Weight 103 kg (10/26/22 11:39 AM) Weight Obtained Via Patient/family state d (10/26/22 11:39 AM) Dry Weight Obtained Via Patient/family s tated (10/26/22 11:39 AM) Social History Social History Type Response Tobacco Other: 3 cigars brenden y. Sex Patient Care team information Care Team Personnel Name: Alka Lee RN Position: [facility] RN Member Role: Primary Care Nurse Name: Jaleel Lo RN Position: [facility] RN Member Role: Primary Care Nurse Name: Ivy Smith RN Position: [facility] RN Member Role: Primary Care Nurse Name: Efra Mejia MD Position: [facility] Primary Care Physician Member Role: PCP Address: Address: [address] [place] [address] Name: Devorah Johnson RN Position: [facility] RN Member Role: Primary Care Nurse Name: Dustin Chavez RN Position: [facility] RN Member Role: Primary Care Nurse Name: Litzy Weinberg RN Position: [facility] RN Member Role: Primary Care Nurse Name: Melanie Garay Position: [facility] RN Member Role: Primary Care Nurse Name: Yoselyn Patrick RN Position: [facility] RN Member Role: Primary Care Nurse Name: Michelle Buckley Position: [facility] RN Member Role: Primary Care Nurse Name: Saundra Gonzalez Position: [facility] RN Member Role: Primary Care Nurse Name: Sofía Moreno RN Position: [facility] RN Member Role: Primary Care Nurse Name: Sary Tong RN Position: [facility] RN Member Role: Primary Care Nurse Name: Sophia Lomas RN Position: [facility] RN Member Role: Primary Care Nurse Name: Danielito Woo RN Position: [facility] Hospital Operations Assistant Member Role: Primary Care Nurse Care Team Related Persons Name: PHILIPELLIS TINY Address: [address] [place] [address] Name: FERNIE CUMMINS Address: [address] [place], [place] Name: TINY CUMMINS Address: [address] [place] [address]
--- OUTSIDE RECORDS SUMMARY | 2023-10-18 20:39 | XMS_ITS | Continuity of Care Document ---
Author Name Unknown Organization [facility] Address [address] [place] [address]- Care Team Providers Care Farm Equipment Maintenance Supervisor Name Role Phone Efra Mejia MD Primary Care Physician [facility]counter [facility] Date[facility]s): 10/27/20 - 11/03/20 [facility] [address] [place] [address]- Attending Physician: Efra Mejia MD Allergies, Adverse [...] Given 1Result Comment: [07/31/2018] [facility]# [id number] 2Result Comment: [08/26/2015] done at [facility] 3Admin Note: VIM 03/17/12 4Admin Note: VIM 04/10/11 5Admin Note: VIS GIVEN 04/10/13 6Admin Note: vis given dated 06/21/09 7Admin Note: VIM 08/03/08 Medications albuterol CFC free 90 mcg/inh inhalation aerosol 1, puffs, Inhalation, 4 times a day, PRN, # 18 Gm, Refills 0, Tot. Refills 0, Maintenance, 12/02/2009:56:00 EDT, Aerosol, Route to Pharmacy Electronically, [id number], [facility]/pharmacy #[id number], 180.3, [...] Maintenance, 07/02/16 16:06:12, Route to Pharmacy Electronically, [id number], [facility] Start Date: [...] 10:24:00 EST, Route to Pharmacy Electronically, [facility]/pharmacy #[id number], Partial fill upon patient request [...] Refills, Maintenance, 10/27/20 10:22:00 EST, Solution, [facility]/pharmacy #[id number], 183, cm, 10/27/20 8:41:00 EST, Height, 119, kg, 09/23/20 17:06:00 EST, Dry Weight Start Date: 10/27/20 Status: Ordered levothyroxine 0.112 mg oral tablet 2 tablet = 224 mcg, By Mouth, Daily, # 60 tablet, 5 Refills, Maintenance, 10/27/20 10:22:00 EST, Tablet, [facility]/pharmacy #[id number], 183, cm, 10/27/20 8:41:00 EST, Height, 119, kg, 09/23/20 17:06:00 EST, DryWeight Start Date: 10/27/20 Stop Date: 04/25/21 Status: Ordered lisinopril 20 mg oral tablet 40 mg, 2, tablet, By Mouth, Daily, # 60 tablet, Refills 5, Tot. Refills 5, Maintenance, 10/27/20 10:22:00 EST, Route to Pharmacy Electronically, [facility]/pharmacy #[id number], Partial fill upon patient request if the prescription is for a schedule II opioid drug... Start Date: 10/27/20 Status: Ordered MiraLax oral powder for reconstitution = 17 Gm, By Mouth, Daily, dissolve in water before taking, # 527 Gm, 5 Refills, Maintenance, 10/27/20 10:23:00 EST, REC Powder, [facility]/pharmacy #[id number], 17 Gm By Mouth Daily,Instr:dissolve in water beforetaking, 183, cm, 10/27/20 8:41:00 EST, Height, 119,... Start Date: 10/27/20 Status: Ordered omeprazole 20 mg oral enteric coated capsule 1 capsule = 20 mg, By Mouth, Daily, # 30 capsule, 5 Refills, Maintenance, 10/27/20 10:22:00 EST, ECCapsule, [facility]/pharmacy #[id number], 183, cm, 10/27/20 8:41:00 EST, Height, 119, kg, 09/23/20 17:06:00 EST,Dry Weight Start Date: 10/27/20 Status: Ordered Pen [place], 29 G x 12.7 mm BD Ultra [...] 10:23:00 EST, Route to Pharmacy Electronically, [facility]/pharmacy #[id number], 183, cm, 10/27/20 8:41:00 EST, Height, 119, kg, 09/23/20 17:06:00 EST, Dry Weight Start Date: 10/27/20 Status: Ordered Tylenol 325 mg oral tablet 650 mg, 2, tablet, By Mouth, Every 4 hours, PRN, # 90 tablet, Refills 0, Tot. Refills 0, Acute 11/04/20 13:07:00 EST, Pain , Mild, 09/26/20 13:07:00 EST, Route to Pharmacy Electronically, [facility], Partial fill upon patient [...] oldest [Reference Range]: 1 Height 183 cm (10/27/20 8:41 AM) Social History Social History Type Response Tobacco Other: 3 cigars brenden y. Sex
--- OUTSIDE RECORDS SUMMARY | 2023-10-18 20:39 | XMS_ITS | Continuity of Care Document ---
Author Name Unknown Organization [facility] Address [address] [place] [address]- Care Team Providers Care Machinist Supervisor Name Role Phone Roberto CH, Efra Miramontes Primary Care Physician [phone] [facility]counter [facility] Date(s): 04/14/20 - 05/14/20 [facility] [address] [place] [address] Attending Physician: AdmBobby mckeon Admitting Physician: AdmtrBobby [...] [07/31/2018] [facility]# [id number] 2Result Comment: [08/26/2015] done at [facility] 3Admin Note: VIM 03/17/12 4Admin Note: VIM 04/10/11 5Admin Note: VIS GIVEN 04/10/13 6Admin Note: vis given dated 06/21/09 7Admin Note: VIM 08/03/08 Medications albuterol CFC free 90 mcg/inh inhalation aerosol 1, puffs, Inhalation, 4 times a day, PRN, # 18 Gm, Refills 0, Tot. Refills 0, Maintenance, 12/02/2009:56:00 EDT, Aerosol, Route to Pharmacy Electronically, [id number], [facility]/pharmacy #[id number], 180.3, cm, 11/12/19 [...] Maintenance, 07/02/16 16:06:12, Route to Pharmacy Electronically, [id number], [facility] Start Date: [...] 04/10/19 17:13:55 EDT, Route to Pharmacy Electronically, [id number], [facility] Start Date: 04/10/19 Stop Date: [...] 01/20/18 13:36:03 EDT, Route to Pharmacy Electronically, [id number], [facility] Start Date: 01/20/18 Stop Date: 01/15/19 Status: Ordered Mavyret By Mouth, Daily, 0 Refills, Maintenance, 05/04/20 11:57:00 EDT Start Date: 05/04/20 Status: Ordered Mavyret 100 mg-40 mg oral tablet 3 tablet, By Mouth, Daily, x 8 weeks, # 84 tablet, 1 Refills, Maintenance, 02/05/20 14:18:00 EDT, Tablet, [facility], 3 tablet By [...] Weight Start Date: 08/27/19 Status: Ordered Pen [place], 29 G x 12.7 mm BD Ultra [...]
--- OUTSIDE RECORDS SUMMARY | 2023-10-18 20:39 | XMS_ITS | Continuity of Care Document ---
Author Name Unknown Organization [facility] Address [address] [place] [address]- Care Team Providers Care Pallet Repairer Name Role Phone Efra Mejia MD Primary Care Physician Encounter [facility] Date(s): 10/04/22 - 10/11/22 [facility] [address] [place] [address]- Encounter Diagnosis Inguinal hernia(Discharge Diagnosis) - 10/04/22 Hx of right BKA(Discharge Diagnosis) - 10/04/22 Ulcer of left heel(Discharge Diagnosis) - 10/04/22 Diabetes mellitus type 2(Discharge Diagnosis) - 10/04/22 Health care maintenance(Discharge Diagnosis) - 10/04/22 Alzheimer's dementia(Discharge Diagnosis) - 10/04/22 Hypotension(Discharge Diagnosis) - 10/04/22 Attending Physician: Efra Mejia MD Allergies, Adverse [...] 23-valent vaccine 8 04/01/12 Given 1Result Comment: [facility]#[id number] 2Result Comment: [07/31/2018] [facility]# [id number] 3Result Comment: [08/26/2015] [facility] 4Admin Note: VIM 03/17/12 5Admin Note: VIM 04/10/11 6Admin Note: VIM 08/03/08 7Admin Note: VIS GIVEN 04/10/13 8Admin Note: vis given dated 06/21/09 Medications ARIPiprazole 5 mg oral tablet 5 mg, 1, tablet, By Mouth, Daily, # 90 tablet, Refills 1, Tot. Refills 1, Maintenance, 09/28/22 8:16:00 EST, Route to Pharmacy Electronically, [facility]/pharmacy #[id number], Partial fill upon patient request ifthe prescription is for a schedule II opioid drug.,... Start Date: 09/28/22 Stop Date: 03/27/23 Status: Ordered citalopram 40 mg oral tablet 40 mg, 1, tablet, By Mouth, Daily, Take with food., # 90 tablet, Refills 1, Tot. Refills 1, Maintenance, 09/28/22 8:16:00 EST, Route to Pharmacy Electronically, [facility]/pharmacy #[id number], 181.5, cm, 08/30/22 16:11:00 EST, Height, 105, kg, 09/26/21 3:23:00 ES... Start Date: 09/28/22 Stop Date: 03/27/23 Status: Ordered donepezil 10 mg oral tablet 10 mg, 1, tablet, By Mouth, Daily at bedtime, # 90 tablet, Refills 2, Tot. Refills 2, Maintenance, 10/11/22 12:01:00 EST, Route to Pharmacy Electronically, [facility]/pharmacy #[id number], Partial fill upon patient [...] AM, 0 Refills, Maintenance, 07/14/21 14:22:00 EDT, [place], Partial fill upon patient request if the [...] 09/17/22 12:54:00 EST, Route to Pharmacy Electronically, [facility]/pharmacy #[id number], Partial fill upon patient request if the prescription is for a schedule II... Start Date: 09/17/22 Status: Ordered levothyroxine 0.112 mg oral tablet 2 tablet = 224 mcg, By Mouth, Daily, # 60 tablet, 2 Refills, Maintenance, 09/05/22 12:50:00 EST, Tablet, [facility]/pharmacy #[id number], 181.5, cm, 08/30/22 16:11:00 EST, [...] Start Date: 07/13/21 Status: Ordered nystatin topical [id number] u/gm powder See Instructions, apply to stump 3 x day, # 120 Gm, 5 Refills, Maintenance, 07/06/21 12:35:00 EDT, Powder, [facility]/pharmacy #[id number], Partial fill upon patient request if the prescription is for a schedule II opioid drug., apply to stump 3 x day, 180, cm,... Start Date: 07/06/21 Status: Ordered omeprazole 20 mg oral enteric coated capsule 1 capsule = 20 mg, By Mouth, Daily, # 30 capsule, 0 Refills, Maintenance, 08/28/22 13:07:00 EST, ECCapsule, [id number], 181.5, cm, 05/08/22 8:39:00 EDT, Height, 105, kg, 09/26/21 3:23:00 EST, Dry Weight Start Date: 08/28/22 Status: Ordered prazosin 2 mg oral capsule 2 capsule = 4 mg, By Mouth, Daily at bedtime, dose increase, # 180 capsule, 1 Refills, Maintenance,09/28/22 8:17:00 EST, Capsule, [facility]/pharmacy #[id number], Partial fill upon patient request if the prescription is for a schedule II opioid drug., 181.5, cm,... Start Date: 09/28/22 Stop Date: 03/27/23 Status: Ordered ramelteon 8 mg oral tablet 1 tablet = 8 mg, By Mouth, Daily at bedtime, # 90 tablet, 1 Refills, Maintenance, 09/28/22 8:16:00 EST, Tablet, [facility]/pharmacy #[id number], Partial fill upon patient request if the prescription is for a schedule II opioid drug., 181.5, cm, 08/30/22 16:11:00 E... Start Date: 09/28/22 Stop Date: 03/27/23 Status: Ordered Suboxone 8 mg-2 mg Sublingual Film See Instructions, 1.5 films sublingual in AM, 1 film sublingual in PM [id number], # 75 film, 1 Refills, Maintenance, 09/28/22 8:16:00 EST, [id number], 1.5 films sublingual in AM, 1 film sublingual in PM ; [id number], 181.5, cm, 08/30/22 16:11:... Start Date: 09/28/22 Status: Ordered tamsulosin 0.4 mg oral capsule 0.4 mg, 1, capsule, By Mouth, Daily, # 90 capsule, Refills 3, Tot. Refills 3, Maintenance, 07/06/2111:55:00 EDT, Route to Pharmacy Electronically, [facility]/pharmacy #[id number], Partial fill upon patient request [...] Clinical Service Informant Alzheimer's dementia Discharge Diagnosis 10/04/22 Diabetes mellitus type 2 Discharge Diagnosis 10/04/22 Hx of right BKA Discharge Diagnosis 10/04/22 Ulcer of left heel Discharge Diagnosis 10/04/22 Health care maintenance Discharge Diagnosis 10/04/22 Hypotension Discharge Diagnosis 10/04/22 Inguinal hernia Discharge Diagnosis 10/04/22 Vital Signs Most recent to oldest [Reference Range]: 1 Height 181.5 cm (10/04/22 9:47 AM) Weight 102.2 kg (10/04/22 9:47 AM) Oxygen Saturation [94-100 %] 97 % (10/04/22 9:47 AM) Pulse Rate [55-90 bpm] 74 bpm (10/04/22 9:47 AM) Body Mass Index [18.5-24.99 kg/m2] 31.02 kg/m2 *>HHI* (10/04/22 9:47 AM) Blood Pressure [90-138/55-84 mm Hg] 98/6 3mm Hg (10/04/22 9:47 AM) Blood pressure sites Arm, right (10/04/22 9:47 AM) Weight Obtained Via Standing scale (10/04/22 9:47 AM) Social History Social History Type Response Tobacco Other: 3 cigars brenden y. Sex Patient Care team information Care Team Personnel Name: Alka Lee RN Position: [facility] RN Member Role: Primary Care Nurse Name: Jaleel Lo RN Position: [facility] RN Member Role: Primary Care Nurse Name: Ivy Smith RN Position: [facility] RN Member Role: Primary Care Nurse Name: Efra Mejia MD Position: [facility] Primary Care Physician Member Role: PCP Address: Address: [address] [place] [address] Name: Devorah Johnson [facility] Primary Care Nurse Name: Michelle Buckley Position: [facility] RN Member Role: Primary Care Nurse Name: Saundra Gonzalez Position: [facility] RN Member Role: Primary Care Nurse Name: Sofía Moreno RN Position: [facility] RN Member Role: Primary Care Nurse Name: Sary Tong RN Position: [facility] RN Member Role: Primary Care Nurse Name: Sophia Lomas RN Position: [facility] RN Member Role: Primary Care Nurse Name: Danielito Woo RN Position: [facility] Hospital Pst Manager Member Role: Primary Care Nurse Care Team Related Persons Name: TINY STEPHENS Address: [address] [place], [place] Name: FERNIE CUMMINS Address: [address] [place], [place] Name: TINY CUMMINS Address: [address] [place], [place]
--- OUTSIDE RECORDS SUMMARY | 2023-10-18 20:39 | XMS_ITS | Continuity of Care Document ---
Author Name Unknown Organization [facility] Address [address] [place] [address]- Care Team Providers Care Hat Block Bench Hand Name Role Phone Efra Mejia MD Primary Care Physician [facility] Date[facility] 09[facility]20 - 10/21/20 [facility] [address] [place] [address]- Allergies, Adverse Reactions, Alerts Substance Reaction Severity [...] acel(Tdap) 7 03/05/11 Given 1Result Comment: [07/31/2018] [facility] [place][note 2]# [id number] 2Result Comment: [08/26/2015] done at [facility] 3Admin Note: VIM 03/17/12 4Admin Note: VIM 04/10/11 5Admin Note: VIS GIVEN 04/10/13 6Admin Note: vis given dated 06/21/09 7Admin Note: VIM 08/03/08 Medications albuterol CFC free 90 mcg/inh inhalation aerosol 1, puffs, Inhalation, 4 times a day, PRN, # 18 Gm, Refills 0, Tot. Refills 0, Maintenance, 12/02/2009:56:00 EDT, Aerosol, Route to Pharmacy Electronically, [id number], [facility]/pharmacy #[id number], 180.3, cm, 11/12/19 [...] Maintenance, 07/02/16 16:06:12, Route to Pharmacy Electronically, [id number], [facility] Start Date: [...] 12:49:00 EDT Start Date: 07/10/20 Status: Ordered MiraLax oral powder for reconstitution = 17 Gm, By Mouth, Daily, dissolve in water before taking, # 527 Gm, 5 Refills, Maintenance, 06/21/20 14:32:00 EDT, REC Powder, [facility]/pharmacy #[id number], 17 Gm By [...] 5 Refills, Maintenance, 05/26/20 17:50:00 EDT, ECCapsule, [facility]/pharmacy #[id number], 180.3, cm, 05/06/20 16:07:00 EDT, Height, 120.7, kg, 11/03/19 13:31:00EST, Dry Weight Start Date: 05/26/20 Status: Ordered Pen [place], 29 G x 12.7 mm BD Ultra Fine See Instructions, # 1 box, Refills 3, Tot. Refills 3, Maintenance, use with NOvolog Pen injection twice daily, 06/18/19 9:42:43 EDT, Compound Start Date: 06/18/19 Status: Ordered tamsulosin 0.4 mg oral capsule 0.4 mg, 1, capsule, By Mouth, Daily, # 30 capsule, Refills 11, Tot. Refills 11, Maintenance, 07/05/20 16:10:00 EDT, Route to Pharmacy Electronically, [facility]/pharmacy #[id number], 180.3, cm, 06/21/20 13:42:00 EDT, Height, 120.7, kg, 11/03/19 13:31:00 EST, Dry W... Start Date: 07/05/20 Status: Ordered Tylenol 325 mg oral tablet 650 mg, 2, tablet, By Mouth, Every 4 hours, PRN, # 90 tablet, Refills 0, Tot. Refills 0, Acute 11/04/20 13:07:00 EST, Pain , Mild, 09/26/20 13:07:00 EST, Route to Pharmacy Electronically, [facility], Partial fill upon patient request [...]
--- OUTSIDE RECORDS SUMMARY | 2023-10-18 20:39 | XMS_ITS | Continuity of Care Document ---
Author Name Unknown Organization [facility] Address [address] [place] [address]- Care Team Providers Care Customer Liaison Name Role Phone Roberto CH, Efra Miramontes Primary Care Physician [phone] [facility] Date(s): 06/04/23 - 07/04/23 [facility] [address] [place] [address]- Attending Physician: Bobby Sandoval Admitting Physician: Admtr, Bobby Referring Physician: Admtr, Ar8 Allergies, Adverse Reactions, Alerts No Known Allergies Immunizations Given and Recorded Vaccine Date Status Refusal Reason SARS-CoV-2 mRNA (sxapflr-ubjy-tqcxf) vax 04/27/22 Recorded influenza virus vaccine, inactivated [...] vaccine 8 04/01/12 Given 1Result Comment: [facility]#[id number] 2Result Comment: [07/31/2018] [facility]# [id number] 3Result Comment: [08/26/2015] done at [facility] 4Admin Note: VIM 03/17/12 5Admin Note: VIM 04/10/11 6Admin Note: VIM 08/03/08 7Admin Note: VIS GIVEN 04/10/13 8Admin Note: vis given dated 06/21/09 Medications ARIPiprazole 5 mg oral tablet 5 mg, 1, tablet, By Mouth, Daily, # 90 tablet, Refills 1, Tot. Refills 1, Maintenance, 03/01/23 10:12:00 EDT, Route to Pharmacy Electronically, [facility]/pharmacy #[id number], Partial fill upon patient request if the prescription is for a schedule II opioid drug.... Start Date: 03/01/23 Stop Date: 08/28/23 Status: Ordered ciclopirox 0.77% topical cream See Instructions, Apply thin layer to rash twice per day. Rub in well, # 90 Gm, 0 Refills, Acute 08/03/23 9:00:00 EST, 07/03/23 11:29:00 EDT, Cream, [facility]/pharmacy #[id number], Partial fill upon patient request if the prescription is for a schedule II opioid... Start Date: 07/03/23 Stop Date: 08/03/23 Status: Ordered citalopram 40 mg oral tablet 40 mg, 1, tablet, By Mouth, Daily, Take with food., # 90 tablet, Refills 1, Tot. Refills 1, Maintenance, 06/25/23 10:14:00 EDT, Route to Pharmacy Electronically, [facility]/pharmacy #[id number], 181.5, cm, 06/06/23 16:27:00 EDT, Height, 103, kg, 10/26/22 11:39:00... Start Date: 06/25/23 Stop Date: 12/22/23 Status: Ordered donepezil 10 mg oral tablet 10 mg, 1, tablet, By Mouth, Daily at bedtime, # 90 tablet, Refills 2, Tot. Refills 2, Maintenance, 10/11/22 12:01:00 EST, [facility] AM, 0 Refills, Maintenance, 07/14/21 14:22:00 EDT, [place], Partial fill upon patient request if the [...] 03/27/23 17:30:00 EDT, Route to Pharmacy Electronically, [facility]/pharmacy #[id number], override needed for lost prescription, thanks., 181.5, cm, 03/07/23 10:11:0... Start Date: 03/27/23 Status: Ordered levothyroxine 0.112 mg oral tablet 2 tablet = 224 mcg, By Mouth, Daily, # 60 tablet, 2 Refills, Maintenance, 03/27/23 12:47:00 EDT, Tablet, [facility]/pharmacy #[id number], 181.5, cm, 03/07/23 10:11:00 EDT, Height, [...] Start Date: 07/13/21 Status: Ordered nystatin topical 180588 u/gm powder See Instructions, apply to stump 3 x day, # 120 Gm, 5 Refills, Maintenance, 04/23/23 15:43:00 EDT, Powder, [id number], Partial fill upon patient request if the prescription is for a schedule II opioid drug., apply to stump 3 x day, 181.5, cm... Start Date: 04/23/23 Status: Ordered nystatin topical 180529 u/gm powder See Instructions, apply to stump [...] film, 0 Refills, Maintenance, 06/25/23 10:13:00 EDT, [facility]/pharmacy #[id number], [id number], 1.5 films sublingual in AM, 1 film sublingual in PM, 181.5, cm, 06/06/23 16:27:00 EDT, [place]... Start Date: 06/25/23 Status: Ordered tamsulosin 0.4 mg oral capsule 0.4 mg, 1, capsule, By Mouth, Daily, # 90 capsule, Refills 3, Tot. Refills 3, Maintenance, 12/20/2315:00:00 EDT, [facility] Team Personnel Name: Cayla Herrera RN Position: [facility] ED RN W/OE and Tasks Member Role: Primary Care Nurse Name: Alka Lee RN Position: [facility] RN Member Role: Primary Care Nurse Name: Jaleel Lo RN Position: [facility] RN Member Role: Primary Care Nurse Name: Ivy Smith RN Position: [facility] RN Member Role: Primary Care Nurse Name: Efra Mejia MD Position: [facility] Physician - Primary Care Member Role: PCP Address: Address: [address] [place] [address] Name: Devorah Johnson RN [facility] Name: Yoselyn Patrick RN Position: [facility] RN Member Role: Primary Care Nurse Name: Michelle Akbar [place] Position: [facility] RN Member Role: Primary Care Nurse Name: Saundra Gonzalez Position: [facility] RN Member Role: Primary Care Nurse Name: Sofía Moreno RN Position: [facility] RN Member Role: Primary Care Nurse Name: Sary Tong RN Position: [facility] RN Member Role: Primary Care Nurse Name: Danielito Woo RN Position: [facility] Hospital Surgical Forceps Fabricator Member Role: Primary Care Nurse Care Team Related Persons Name: TINY STEPHENS Address: [address] [place] [address] Name: FERNIE CUMMINS Address: [address] [place] [address] Name: TINY CUMMINS Address: [address] [place] [address]
--- OUTSIDE RECORDS SUMMARY | 2023-10-18 20:39 | XMS_ITS | Continuity of Care Document ---
Author Name Unknown Organization [facility] Address [address] [place] [address]- Care Team Providers Care Paper Colorer Name Role Phone Efra Mejia MD Primary Care Physician Encounter [facility] Date(s): 05/24/20 - 06/23/20 [facility] [address] [place] [address]- [facility] Allergies, Adverse Reactions, Alerts Substance [...] [facility]# [id number] 2Result Comment: [08/26/2015] done at [facility] 3Admin Note: VIM 03/17/12 4Admin Note: VIM 04/10/11 5Admin Note: VIS GIVEN 04/10/13 6Admin Note: vis given dated 06/21/09 7Admin Note: VIM 08/03/08 Medications albuterol CFC free 90 mcg/inh inhalation aerosol 1, puffs, Inhalation, 4 times a day, PRN, # 18 Gm, Refills 0, Tot. Refills 0, Maintenance, 12/02/2009:56:00 EDT, Aerosol, Route to Pharmacy Electronically, [id number], [facility]/pharmacy #[id number], 180.3, cm, 11/12/19 15:07:00 [...] Maintenance, 07/02/16 16:06:12, Route to Pharmacy Electronically, [id number], [facility] #[facility] Start Date: [...] 05/31/20 14:57:00 EDT, Route to Pharmacy Electronically, [facility]/pharmacy #[id number], 180.3, cm, 05/31/20 14:08:00 EDT, Height, 120.7, kg, 11/03/19 13:31:00 EST,... Start Date: 05/31/20 Status: Ordered ibuprofen 800 mg oral tablet 800 mg, 1, tablet, By Mouth, Every 8 hours, PRN, # 90 tablet, Refills 0, Tot. Refills 0, Maintenance, as needed for pain, 04/10/19 17:13:55 EDT, Route to Pharmacy Electronically, [id number], [facility] #[facility] Start Date: [...] 5 Refills, Maintenance, 05/31/20 14:57:00 EDT, Solution, [facility]/pharmacy #[id number], 180.3, cm, 05/31/20 14:08:00 EDT, Height, 120.7, kg, 11/03/19 13:31:00 EST, Dry Weight Start Date: 05/31/20 Status: Ordered levothyroxine 0.112 mg oral tablet 2 tablet = 224 mcg, By Mouth, Daily, # 60 tablet, 5 Refills, Maintenance, 06/21/20 14:29:00 EDT, Tablet, [facility]/pharmacy #[id number], 180.3, cm, 06/21/20 13:42:00 EDT, Height, 120.7, kg, 11/03/19 13:31:00 EST, Dry Weight Start Date: 06/21/20 Stop Date: 12/18/20 Status: Ordered lisinopril 20 mg oral tablet 20 mg, 1, tablet, By Mouth, Daily, # 90 tablet, Refills 3, Tot. Refills 3, Maintenance, 06/21/20 14:29:00 EDT, Route to Pharmacy Electronically, [facility]/pharmacy #[id number], 180.3, cm, 06/21/20 13:42:00 EDT, Height, 120.7, kg, 11/03/19 13:31:00 EST, Dry Weight Start Date: 06/21/20 Stop Date: 06/16/21 Status: Ordered Mavyret 100 mg-40 mg oral tablet 3 tablet, By Mouth, Daily, x 8 weeks, # 84 tablet, 1 Refills, Maintenance, 02/05/20 14:18:00 EDT, Tablet, [facility], 3 tablet By Mouth Daily,Instr:x [...] Refills, Maintenance, 06/21/20 14:32:00 EDT, REC Powder, [facility]/pharmacy #[id number], 17 Gm By Mouth [...] Weight Start Date: 05/26/20 Status: Ordered Pen [place], 29 G x 12.7 mm BD Ultra Fine See Instructions, # 1 box, Refills 3, Tot. Refills 3, Maintenance, use with NOvolog Pen injection twice daily, 06/18/19 9:42:43 EDT, Compound Start Date: 06/18/19 Status: Ordered Walker See Instructions, # 1 [...]
--- OUTSIDE RECORDS SUMMARY | 2023-10-18 20:39 | XMS_ITS | Continuity of Care Document ---
Author Name Unknown Organization [facility] Address [address] [place] [address]- Care Team Providers Care Diabetes Trainer Name Role Phone Efra Mejia MD Primary Care Physician Encounter [facility] Date(s): 10/08/19 - 10/15/19 [facility] [address] [place] [address]- [place] Encounter Diagnosis Hypogonadism(Discharge Diagnosis) - 10/08/19 Hypothyroidism(Discharge Diagnosis) - 10/08/19 Osteoarthritis of right glenohumeral joint(Discharge Diagnosis) - 10/08/19 Attending Physician: Efra Mejia MD Allergies, Adverse [...] acel(Tdap) 7 03/05/11 Given 1Result Comment: [07/31/2018] [facility]# [id number] 2Result Comment: [08/26/2015] done at [facility] 3Admin Note: VIM 03/17/12 4Admin [...] Maintenance, 07/02/16 16:06:12, Route to Pharmacy Electronically, [id number], [facility] Start Date: [...] 04/10/19 17:13:55 EDT, Route to Pharmacy Electronically, [id number], [facility] Start Date: [...] 1 Refills, Maintenance, 10/08/19 16:20:00 EST, Solution, [id number], 180, cm, 10/08/19 15:20:00 EST, Height, [...] 01/20/18 13:36:03 EDT, Route to Pharmacy Electronically, [id number], [facility] Start Date: [...] Weight Start Date: 08/27/19 Status: Ordered Pen [place], 29 G x 12.7 mm BD Ultra [...] Effective Dates Health Status Clinical Service Informant Hypogonadism Discharge Diagnosis 10/08/19 Hypothyroidism Discharge Diagnosis 10/08/19 Osteoarthritis of right glenohumeral joint Discharge Diagnosis 10/08/19 Vital Signs Most recent to oldest [Reference Range]: 1 Height 180 cm (10/08/19 3:20 PM) Oxygen Saturation [94-100 %] 96 % (10/08/19 3:20 PM) Pulse Rate [55-90 bpm] 69 bpm (10/08/19 3:20 PM) Blood Pressure [90-138/55-84 mm Hg] 128/ 78mm Hg (10/08/19 3:20 PM) Mode of Delivery (Oxygen) Room air (10/08/19 3:20 PM) Social History Social History Type Response Tobacco Other: 3 cigars brenden y. Sex
--- OUTSIDE RECORDS SUMMARY | 2023-10-18 20:39 | XMS_ITS | Continuity of Care Document ---
Author Name Unknown Organization [facility] Address [address] [place] [address]- Care Team Providers Care Geophysical Party Chief Name Role Phone Efra Mejia MD Primary Care Physician [phone] Encounter [facility] Date(s): 07/04/23 - 08/09/23 [facility] [address] [place] [address] Attending Physician: Juve Lopez MD Admitting [...] inactivated 5 08/16/11 Gi raheem SARS-CoV-2 mRNA (ebyfvdy-symv-crzeb) vax 04/27/22 Recorded zoster vaccine, inactivated 06/11/21 Recorded SARS-CoV-2 (COVID-19) mRNA BNT-162b2 vac 06/11/21 Recorded SARS-CoV-2 (COVID-19) mRNA BNT-162b2 vac 12/04/20 Recorded SARS-CoV-2 (COVID-19) mRNA BNT-162b2 vac 11/13/20 Recorded tetanus/diphtheria/pertussis, acel(Tdap) 05/07/21 Given tetanus/diphtheria/pertussis, acel(Tdap) 6 03/05/11 Given Influenza Virus Vaccine (oldterm) 06/08/19 Recorde d Fluarix (oldterm) 7 08/19/13 Given pneumococcal 23-valent vaccine 8 04/01/12 Given 1Result Comment: [facility]#[id number] 2Result Comment: [07/31/2018] [facility]# [id number] 3Result Comment: [08/26/2015] done at [facility] 4Admin Note: VIM 03/17/12 5Admin Note: VIM 04/10/11 6Admin Note: VIM 08/03/08 7Admin Note: VIS GIVEN 04/10/13 8Admin Note: vis given dated 06/21/09 Medications ARIPiprazole 5 mg oral tablet 5 mg, 1, tablet, By Mouth, Daily, # 90 tablet, Refills 1, Tot. Refills 1, Maintenance, 03/01/23 10:12:00 EDT, Route to Pharmacy Electronically, [facility] [...] 06/25/23 10:14:00 EDT, Route to Pharmacy Electronically, [facility]/pharmacy #[id number], 181.5, cm, 06/06/23 16:27:00 EDT, Height, 103, kg, 10/26/22 11:39:00... Start Date: 06/25/23 Stop Date: 12/22/23 Status: Ordered donepezil 10 mg oral tablet 1, tablet, By Mouth, Daily at bedtime, # 90 tablet, Refills 2, Maintenance, 07/26/23 16:19:00 EST, Route to Pharmacy Electronically, [id number], 181.5, cm, 07/11/23 11:00:00 EDT, Height, 103, kg, 10/26/22 11:39:00 EST, Dry Weight Start Date: 07/26/23 Status: Ordered famotidine 40 mg oral tablet 1 tablet = 40 mg, By Mouth, Daily at bedtime, # 30 tablet, 0 Refills, Maintenance, 07/11/23 13:01:00 EDT, Tablet, [facility]/pharmacy #[id number], Partial fill upon [...] Gm, 0 Refills, Maintenance, 07/11/23 13:02:00 EDT, [place], [facility]/pharmacy #0693, Partial fill upon [...] 03/27/23 17:30:00 EDT, Route to Pharmacy Electronically, [facility]/pharmacy #[id number], override needed for lost prescription, thanks., 181.5, cm, 03/07/23 10:11:0... Start Date: 03/27/23 Status: Ordered levothyroxine 0.2 mg oral tablet 1 tablet = 200 mcg, By Mouth, Daily, # 30 tablet, 5 Refills, Maintenance, 07/14/23 18:02:00 EDT, Tablet, [facility]/pharmacy #[id number], dose reduction, 181.5, cm, [...] Start Date: 07/13/21 Status: Ordered nystatin topical 176987 u/gm powder See Instructions, apply to stump 3 x day, # 120 Gm, 5 Refills, Maintenance, 04/23/23 15:43:00 EDT, Powder, [facility]/pharmacy #[id number], Partial fill upon patient request if the prescription is for a schedule II opioid drug., apply to stump 3 x day, 181.5, cm... Start Date: 04/23/23 Status: Ordered nystatin topical 209278 u/gm powder See Instructions, apply to stump 3 x day, # 120 Gm, 5 Refills, Maintenance, 07/06/21 12:35:00 EDT, Powder, [facility]/pharmacy #[id number], Partial fill upon patient request if the prescription is for a schedule II opioid drug., apply to stump 3 x day, 180, cm,... Start Date: 07/06/21 Status: Ordered omeprazole 20 mg oral enteric coated capsule 1 capsule = 20 mg, By Mouth, Daily, # 30 capsule, 2 Refills, Maintenance, 07/31/23 11:34:00 EST, ECCapsule, [facility]/pharmacy #[id number], 181.5, cm, 07/11/23 11:00:00 EDT, Height, 103, kg, 10/26/22 11:39:00 EST, Dry Weight Start Date: 07/31/23 Status: Ordered prazosin 2 mg oral capsule 1 capsule = 2 mg, By Mouth, Daily at bedtime, dose reduction, # 90 capsule, 1 Refills, Maintenance,06/25/23 10:14:00 EDT, Capsule, [facility]/pharmacy #0693, Partial fill upon patient request if the prescription is for a schedule II opioid drug., 181.5, cm,... Start Date: 06/25/23 Stop Date: 12/22/23 Status: Ordered ramelteon 8 mg oral tablet 1 tablet = 8 mg, By Mouth, Daily at bedtime, # 90 tablet, 1 Refills, Maintenance, 06/25/23 10:14:00EDT, Tablet, [facility]/pharmacy #0693, Partial fill upon [...] film, 0 Refills, Maintenance, 06/25/23 10:13:00 EDT, [facility]/pharmacy #0693, [id number], 1.5 films sublingual in AM, 1 film sublingual in PM, 181.5, cm, 06/06/23 16:27:00 EDT, [place]... Start Date: 06/25/23 Status: Ordered tamsulosin 0.4 mg oral capsule 0.4 mg, 1, capsule, By Mouth, Daily, # 90 capsule, Refills 3, Tot. Refills 3, Maintenance, 12/20/2315:00:00 EDT, Route to Pharmacy Electronically, [facility]/pharmacy #0686, Partial fill upon patient request if the [...] Team Personnel Name: Cayla Herrera RN Position: [facility] ED RN W/OE and Tasks Member Role: Primary Care Nurse Name: Alka Lee RN Position: [facility] RN Member Role: Primary Care Nurse Name: Jaleel Lo RN Position: [facility] RN Member Role: Primary Care Nurse Name: Ivy Smith RN Position: [facility] RN Member Role: Primary Care Nurse Name: Efra Mejia MD Position: [facility] Physician - Primary Care Member Role: PCP Address: Address: [address] [place] [id number] Name: Devorah Johnson RN Position: [facility] RN Member Role: Primary Care Nurse Name: Dustin Chavez RN Position: [facility] RN Member Role: Primary Care Nurse Name: Litzy Weinberg RN Position: [facility] RN Member Role: Primary Care Nurse Name: Melanie Garay Position: [facility] RN Member Role: Primary Care Nurse Name: Yoselyn Patrick RN Position: [facility] RN Member Role: Primary Care Nurse Name: Michelle Akbar [place] Position: [facility] RN Member Role: Primary Care Nurse Name: Saundra Gonzalez Position: [facility] RN Member Role: Primary Care Nurse Name: Sofía Moreno RN Position: [facility] RN Member Role: Primary Care Nurse Name: Sary Tong RN Position: [facility] RN Member Role: Primary Care Nurse Name: Danielito Woo RN Position: [facility] Hospital Senior Sustainability Consultant Member Role: Primary Care Nurse Care Team Related Persons Name: TINY STEPHENS Address: [address] [place] [address] Name: FERNIE CUMMINS Address: [address] [place] [address] Name: TINY CUMMINS Address: [address] [place] [address]
--- OUTSIDE RECORDS SUMMARY | 2023-10-18 20:39 | XMS_ITS | Continuity of Care Document ---
Author Name Unknown Organization [facility] Address Unknown Care Team Providers Care Airline Transport Pilot Name Role Phone Roberto CH, Efra Miramontes Primary Care Physician [phone] Encounter [facility] Date(s): 06/02/21 - 07/02/21 [facility] Attending Physician: Bobby Sandoval Admitting Physician: Bobby Sandoval Referring Physician: Bobby Sandoval Allergies, Adverse Reactions, Alerts Substance Reaction Severity [...] 1Admin Note: VIM 08/03/08 2Result Comment: [07/31/2018] [facility]# [id number] 3Result Comment: [08/26/2015] done at [facility] [...] Gm, 5 Refills, Maintenance, 12/15/20 12:56:00 EDT, [place], [id number], Partial fill upon patient request [...] patch, 0 Refills, Maintenance, 04/03/21 9:04:00 EDT, [facility]/pharmacy #0693, Partial fill upon patient request if the prescription is for a schedule II opioid drug., 1 patch Topically Daily, 180, cm, 04/03/21 7:30:00 EDT, H... Start Date: 04/03/21 Status: Ordered lisinopril 20 mg oral tablet 20 mg, 1, tablet, By Mouth, Daily, # 30 tablet, Refills 0, Tot. Refills 0, Maintenance, 05/09/21 9:00:00 EDT, Route to Pharmacy Electronically, [facility]/pharmacy #0693, Partial fill upon patient request if the prescription is for a schedule II opioid drug.... Start Date: 05/09/21 Status: Ordered nystatin topical 702378 u/gm powder See Instructions, apply to stump daily, # 30 Gm, 5 Refills, Maintenance, 12/15/20 12:56:00 EDT, Powder, [facility]/pharmacy #0693, Partial fill upon patient request if the prescription is for a schedule II opioid drug., apply to stump daily, 183, cm, ... Start Date: 12/15/20 Status: Ordered omeprazole 20 mg oral enteric coated capsule 1 capsule = 20 mg, By Mouth, Daily, # 30 capsule, 5 Refills, Maintenance, 10/27/20 10:22:00 EST, ECCapsule, [facility]/pharmacy #0693, 183, cm, 10/27/20 8:41:00 EST, [...] 0 Refills, Maintenance, 06/21/21 8:48:00 EDT, Solution, [facility]/pharmacy #7219, Partial fill upon patient request if the [...]
--- OUTSIDE RECORDS SUMMARY | 2023-10-18 20:39 | XMS_ITS | Continuity of Care Document ---
Author Name Unknown Organization [facility] Address [address] [place] [address]- Care Team Providers Care Near Eastern Archaeology Lecturer Name Role Phone Efra Mejia MD Primary Care Physician [place] [facility] [place]s): 11/07/20 - 12/15/20 [facility] [address] [place] [address]- Attending Physician: Efra Mejia MD Allergies, Adverse [...] 1Result Comment: [07/31/2018] [facility]# [id number] 2Result Comment: [08/26/2015] done at [facility] [...] 12/02/2009:56:00 EDT, Aerosol, Route to Pharmacy Electronically, [id number], [facility]/pharmacy #2339, 180.3, cm, 11/12/19 15:07:00 EST, [...] Gm, 5 Refills, Maintenance, 12/15/20 12:56:00 EDT, [place], [facility]/pharmacy #0657, Partial fill upon patient request [...] Maintenance, 07/02/16 16:06:12, Route to Pharmacy Electronically, [id number], [facility] Start Date: [...] 10/27/20 10:24:00 EST, Route to Pharmacy Electronically, [facility]/pharmacy [...] 5 Refills, Maintenance, 10/27/20 10:22:00 EST, Solution, [facility]/pharmacy #0693, 183, cm, 10/27/20 [...] 10/27/20 10:22:00 EST, Route to Pharmacy Electronically, [facility]/pharmacy #0693, Partial fill upon patient request if the prescription is for a schedule II opioid drug... Start Date: 10/27/20 Status: Ordered Melatonin 5 mg oral tablet 1 tablet = 5 mg, By Mouth, Daily at bedtime, # 30 tablet, 5 Refills, Maintenance, 12/15/20 12:56:00EDT, Tablet, [facility]/pharmacy #0693, Partial fill upon patient request if the prescription is for a schedule II opioid drug., 183, cm, 12/15/20 11:23:00 ED... Start Date: 12/15/20 Status: Ordered MiraLax oral powder for reconstitution = 17 Gm, By Mouth, Daily, dissolve in water before taking, # 527 Gm, 5 Refills, Maintenance, 10/27/20 10:23:00 EST, REC Powder, [facility]/pharmacy #0693, 17 Gm By Mouth Daily,Instr:dissolve in water beforetaking, 183, cm, 10/27/20 8:41:00 EST, Height, 119,... Start Date: 10/27/20 Status: Ordered nystatin topical 396348 u/gm powder See Instructions, apply to stump daily, # 30 Gm, 5 Refills, Maintenance, 12/15/20 12:56:00 EDT, Powder, [facility]/pharmacy #0693, Partial fill upon patient request if the prescription is for a schedule II opioid drug., apply to stump daily, 183, cm, 04/01/2... Start Date: 12/15/20 Status: Ordered omeprazole 20 mg oral enteric coated capsule 1 capsule = 20 mg, By Mouth, Daily, # 30 capsule, 5 Refills, Maintenance, 10/27/20 10:22:00 EST, ECCapsule, [facility]/pharmacy #0693, 183, cm, 10/27/20 8:41:00 EST, Height, 119, kg, 09/23/20 17:06:00 EST,Dry Weight Start Date: 10/27/20 Status: Ordered Pen [place], 29 G x 12.7 mm BD Ultra Fine See Instructions, # 1 box, Refills 3, Tot. Refills 3, Maintenance, use with NOvolog Pen injection twice daily, 06/18/19 9:42:43 EDT, Compound Start Date: 06/18/19 Status: Ordered tamsulosin 0.4 mg oral capsule 0.4 mg, 1, capsule, By Mouth, Daily, # 30 capsule, Refills 11, Tot. Refills 11, Maintenance, 12/15/20 12:56:00 EDT, Route to Pharmacy Electronically, [facility]/pharmacy #0693, 183, cm, 12/15/20 11:23:00 EDT, Height, 119, kg, 09/23/20 17:06:00 EST, Dry Weight Start Date: 12/15/20 Status: Ordered Trulicity Pen 1.5 mg/0.5 mL subcutaneous solution 0.5 mL = 1.5 mg, Subcutaneous Injection, Every week, # 2.5 mL, 5 Refills, Maintenance, 12/15/20 12:38:00 EDT, Solution, [facility]/pharmacy #0693, Partial [...]
--- OUTSIDE RECORDS SUMMARY | 2023-10-18 20:39 | XMS_ITS | Continuity of Care Document ---
Author Name Unknown Organization [facility] Address [address] [place] [id number]- Care Team Providers Care C2 Tactical Analysis Technician Name Role Phone Efra Mejia MD Primary Care Physician Encounter [facility] Date(s): 08/06/19 - 11/19/19 [facility] [address] [place] [address]- [facility] Attending Physician: Racheal Vizcaino DO Admitting Physician: Vasyl CH, [facility] Referring Physician: Efra Mejia MD Allergies, Adverse [...] acel(Tdap) 7 03/05/11 Given 1Result Comment: [07/31/2018] [facility]# [id number] 2Result Comment: [08/26/2015] done at [facility] 3Admin Note: VIM 03/17/12 4Admin Note: VIM [...] Maintenance, 07/02/16 16:06:12, Route to Pharmacy Electronically, [id number], [facility] Start Date: [...] 5 Refills, Maintenance, 10/22/19 10:55:00 EST, Tablet, [facility]/pharmacy #[id number], 180.3, cm, 10/22/19 10:14:00 EST, Height, 118.5, kg, 05/12/19 10:33:00 EDT, Dry Weight Start Date: 10/22/19 Status: Ordered ibuprofen 800 mg oral tablet 800 mg, 1, tablet, By Mouth, Every 8 hours, PRN, # 90 tablet, Refills 0, Tot. Refills 0, Maintenance, as needed for pain, 04/10/19 17:13:55 EDT, Route to Pharmacy Electronically, [id number], [facility] Start Date: [...] 5 Refills, Maintenance, 11/17/19 8:28:00 EST, Solution, [facility]/pharmacy #[id number], 180.3, cm, 11/12/19 15:07:00 [...] 01/20/18 13:36:03 EDT, Route to Pharmacy Electronically, [id number], [facility] Start Date: [...] 11/12/19 15:56:00 EST, Route to Pharmacy Electronically, [facility]/pharmacy #[id number], 180.3, cm, 11/12/19 15:07:00 [...] Weight Start Date: 08/27/19 Status: Ordered Pen [place], 29 G x 12.7 mm BD Ultra [...]
--- OUTSIDE RECORDS SUMMARY | 2023-10-18 20:39 | XMS_ITS | Continuity of Care Document ---
Author Name Unknown Organization [facility] Address [address] [place] [address]- Care Team Providers Care Career Development Counselor Name Role Phone Efra Mejia MD Primary Care Physician Encounter [facility] Date(s): 07/11/23 - 07/18/23 [facility] [address] [place] [address]- Attending Physician: Efra Mejia MD Allergies, Adverse [...] inactivated 5 08/16/11 Gi raheem SARS-CoV-2 mRNA (durcjup-sncr-uffve) vax 04/27/22 Recorded zoster vaccine, inactivated 06/11/21 Recorded SARS-CoV-2 (COVID-19) mRNA BNT-162b2 vac 06/11/21 Recorded SARS-CoV-2 (COVID-19) mRNA BNT-162b2 vac 12/04/20 Recorded SARS-CoV-2 (COVID-19) mRNA BNT-162b2 vac 11/13/20 Recorded tetanus/diphtheria/pertussis, acel(Tdap) 05/07/21 Given tetanus/diphtheria/pertussis, acel(Tdap) 6 03/05/11 Given Influenza Virus Vaccine (oldterm) 9/23/19 Recorde d Fluarix (oldterm) 7 08/19/13 Given pneumococcal 23-valent vaccine 8 04/01/12 Given 1Result Comment: [facility]#[id number] 2Result Comment: [07/31/2018] [facility]# [id number] 3Result Comment: [08/26/2015] done at [facility] 4Admin Note: VIM 03/17/12 5Admin Note: VIM 04/10/11 6Admin Note: VIM 08/03/08 7Admin Note: VIS GIVEN 04/10/13 8Admin Note: vis given dated 06/21/09 Medications ARIPiprazole 5 mg oral tablet 5 mg, 1, tablet, By Mouth, Daily, # 90 tablet, Refills 1, Tot. Refills 1, Maintenance, 03/01/23 10:12:00 EDT, Route to Pharmacy Electronically, [facility]/pharmacy #[id number], Partial fill upon patient [...] 08/03/23 9:00:00 EST, 07/03/23 11:29:00 EDT, Cream, [facility]/pharmacy #[id number], Partial fill upon patient request if the prescription is for a schedule II opioid... Start Date: 07/03/23 Stop Date: 08/03/23 Status: Ordered citalopram 40 mg oral tablet 40 mg, 1, tablet, By Mouth, Daily, Take with food., # 90 tablet, Refills 1, Tot. Refills 1, Maintenance, 06/25/23 10:14:00 EDT, Route to Pharmacy Electronically, [facility]/pharmacy #[id number], 181.5, cm, 06/06/23 16:27:00 EDT, Height, 103, kg, 10/26/22 11:39:00... Start Date: 06/25/23 Stop Date: 12/22/23 Status: Ordered donepezil 10 mg oral tablet 10 mg, 1, tablet, By Mouth, Daily at bedtime, # 90 tablet, Refills 2, Tot. Refills 2, Maintenance, 10/11/22 12:01:00 EST, Route to Pharmacy Electronically, [facility]/pharmacy #[id number], Partial fill upon patient request if the prescription is for a schedule II... Start Date: 10/11/22 Stop Date: 07/08/23 Status: Ordered famotidine 40 mg oral tablet 1 tablet = 40 mg, By Mouth, Daily at bedtime, # 30 tablet, 0 Refills, Maintenance, 07/11/23 13:01:00 EDT, Tablet, [facility]/pharmacy #[id number], Partial fill upon patient [...] Gm, 0 Refills, Maintenance, 07/11/23 13:02:00 EDT, [place], [facility]/pharmacy #0693, Partial fill upon patient request if the prescription is for a schedule II opioid drug., 2 sprays Nares, Both Daily, 181.5, cm, 07/11/23 1... Start Date: 07/11/23 Status: Ordered fluticasone 50 mcg/inh nasal spray 2 sprays, Nares, Both, Daily in AM, 0 Refills, Maintenance, 07/14/21 14:22:00 EDT, [place], Partial fill upon patient request if the [...] 03/27/23 17:30:00 EDT, Route to Pharmacy Electronically, [facility]/pharmacy #[id number], override needed for lost prescription, thanks., 181.5, cm, 03/07/23 10:11:0... Start Date: 03/27/23 Status: Ordered levothyroxine 0.112 mg oral tablet 2 tablet = 224 mcg, By Mouth, Daily, for 30 days, # 60 tablet, 0 Refills, Hard Stop 08/09/23 12:54:00 EST, 07/10/23 12:54:00 EDT, Tablet, [facility]/pharmacy #[id number], 181.5, cm, 06/06/23 16:27:00 EDT, Height,103, kg, 10/26/22 11:39:00 EST, Dry Weight Start Date: 07/10/23 Stop Date: 08/09/23 Status: Ordered levothyroxine 0.2 mg oral tablet 1 tablet = 200 mcg, By Mouth, Daily, # 30 tablet, 5 Refills, Maintenance, 07/14/23 18:02:00 EDT, Tablet, [facility]/pharmacy #0693, dose reduction, 181.5, cm, 07/11/23 [...] Start Date: 07/13/21 Status: Ordered nystatin topical 971915 u/gm powder See Instructions, apply to stump 3 x day, # 120 Gm, 5 Refills, Maintenance, 04/23/23 15:43:00 EDT, Powder, [id number], Partial fill upon patient request if the prescription is for a schedule II opioid drug., apply to stump 3 x day, 181.5, cm... Start Date: 04/23/23 Status: Ordered nystatin topical 711514 u/gm powder See Instructions, apply to stump [...] tablet, 1 Refills, Maintenance, 06/25/23 10:14:00EDT, Tablet, [facility]/pharmacy #0693, Partial fill upon patient [...] film, 0 Refills, Maintenance, 06/25/23 10:13:00 EDT, [facility]/pharmacy #[id number], [id number], 1.5 films sublingual in AM, 1 film sublingual in PM, 181.5, cm, 06/06/23 16:27:00 EDT, [place]... Start Date: 06/25/23 Status: Ordered tamsulosin 0.4 mg oral capsule 0.4 mg, 1, capsule, By Mouth, Daily, # 90 capsule, Refills 3, Tot. Refills 3, Maintenance, 12/20/2315:00:00 EDT, Route to Pharmacy Electronically, [facility]/pharmacy #[id number], Partial fill upon patient request if the prescription is for a schedule II opioid d... Start Date: 12/19/22 Status: Ordered triamcinolone 0.1% topical cream 1 application, Topically, 2 times a day, for 14 days, APPLY TOPICALLY TO AFFECTED AREA(S) TWICE DAILY FOR 14 DAYS, # 60 Gm, 0 Refills, Acute 07/25/23 12:57:00 EST, 07/11/23 12:57:00 EDT, Cream, [facility]/pharmacy #[id number], Partial fill upon patient request if... [...] oldest [Reference Range]: 1 Height 181.5 cm (07/11/23 11:00 AM) Weight 88.1 kg (07/11/23 11:00 AM) Oxygen Saturation [94-100 %] 98 % (07/11/23 11:00 AM) Pulse Rate [55-90 bpm] 68 bpm (07/11/23 11:00 AM) Body Mass Index [18.5-24.99 kg/m2] 26.74 kg/m2 *H* (07/11/23 11:00 AM) Blood Pressure [90-138/55-84 mm Hg] 93/5 7mm Hg (07/11/23 11:00 AM) Blood pressure sites Arm, right (07/11/23 11:00 AM) Weight Obtained Via Standing scale (07/11/23 11:00 AM) Social History Social History Type Response Tobacco Other: does not smok e cigarettes but vapes. Sex Note * Humaira Quinteros: PERFORM, SIGN, VERIFY Event Display: Patient Education/Instruction Authored Date: [id number] [facility] Clinical Summary Name NIHARIKA CUMMINS Age 67 Years 1955 PCP Roberto CH, Efra Miramontes PCP Visit Date 07/11/2023 10:51:00 Additional Instructions: Scheduled Appointments?? Future Appointments ?*[facility] [address]??[place],??[place],??[address] ?Phone:??--?Fax:??-- ?Appt. Date:??07/17/2023?10:30 AM ?Scheduled Provider:??Juve Lopez MD ?*[facility] [address]??[place],??[place],??[address] ?Phone:??--?Fax:??-- ?Appt. Date:??08/20/2023?10:00 AM ?Scheduled Provider:??Rekha Fraire Follow-Up Instructions ?? Diagnosis Nausea; Abnormal weight loss; Seborrheic dermatitis, unspecified; Generalized abdominal pain; Hypothyroidism, unspecified; Unspecified protein-calorie malnutrition Medications: Please continue your medications until treatment is completed or stopped by your provider. Discuss any questions related to medications with your provider. New Medications [id number], [address] [place] [id number], [phone] Famotidine (famotidine 40 mg oral tablet) 1 tab(s) Oral Daily at Bedtime. Refills: 0. Next Dose: Miscellaneous Rx (Boost or equivalent protein shake) twice daily for weight loss / malnutrition. Refills: 3. Next Dose: Ondansetron (ondansetron 4 mg oral tablet) 1 tab(s) Oral every 8 hours for 14 Days. Refills: 0. Next Dose: Triamcinolone Topical (triamcinolone 0.1% topical cream) 1 celestina Topically twice a day for 14 Days. APPLY TOPICALLY TO AFFECTED AREA(S) TWICE DAILY FOR 14 DAYS. Refills: 0. Next Dose: Medications to Continue Taking That Have Changed [facility]/pharmacy #[id number], [address] [place], [place] [id number], [phone] - Fluticasone Nasal (fluticasone 50 mcg/inh nasal spray) 2 spray(s) Nares, Both Daily. Refills: 0. Next Dose: These medications were not printed or sent to your pharmacy - Fluticasone Nasal (fluticasone 50 mcg/inh nasal spray) 2 spray(s) Nares, Both Daily in the morning. Next Dose: Medications to Continue with No [...] sublingual in AM, 1 film sublingual in PM. Refills: 0. Next Dose: Ciclopirox Topical (ciclopirox 0.77% topical cream) Apply thin layer to rash twice per day. Rub in well. Refills: 0. Next Dose: Citalopram (citalopram 40 mg oral tablet) 1 tab(s) Oral Daily for 90 Days. Take with food.. Refills: 1. Next Dose: Donepezil (donepezil 10 mg oral tablet) 1 tab(s) Oral Daily at Bedtime for 90 Days. Refills: 2. Next Dose: Ferrous Sulfate (ferrous sulfate 325 mg oral enteric coated tablet) 325 Milligram Oral Daily. Next Dose: Folic Acid (folic acid 1 mg oral tablet) 1 tab(s) Oral Daily. Next Dose: Gabapentin (gabapentin 400 mg oral capsule) 1 capsule Oral twice a day. Refills: 5. Next Dose: Levothyroxine (levothyroxine 0.112 mg oral tablet) 2 tab(s) Oral Daily for 30 Days. Refills: 0. Next Dose: Levothyroxine (levothyroxine 0.112 mg oral tablet) 2 tab(s) Oral Daily for 30 Days. Refills: 0. Next Dose: Melatonin (melatonin 5 mg oral tablet) 1 tab(s) Oral Daily at Bedtime as needed for insomnia. Next Dose: Nystatin Topical (nystatin topical 870787 u/gm powder) apply to stump 3 x day. Refills: 5. Next Dose: Nystatin Topical (nystatin topical 806169 u/gm powder) apply to stump 3 x day. Refills: 5. Next Dose: Omeprazole (omeprazole 20 mg oral [...] Allergy Info:?? NKA Medications Given This Visit Medication Dose Route influenza virus vaccine, inactivated (influenza virus, inactivated vacc (High Dose)) 0.7 mL Intramuscular Future Orders ?US RUQ? Order Date:07/11/23?- Complete on or after?07/11/23 Vital Signs Height 181.5 cm Weight 88.1 kg BMI 26.74 kg/m2 Blood Pressure 93 mm Hg/57 mm Hg Temperature Pulse Rate 68 bpm Respiratory Rate 02 Sat Mode of Delivery 98 %/ You can now view a summary of your hospital visit from the comfort of your home through a free online portal called [employer]. [employer] is a website that allows you to securely view your medical information including discharge summary, medications and follow-up visits. ??You can alsosend a secure electronic message to your doctor???s office to request appointments, renew medications or just ask a question. You can enroll at [email or web address] or register during your next office visit. [...] care provider, you may find a [facility] provider by calling [facility] at [phone]. [facility], in keeping with [facility] guidance, no longer requires face masks for staff, patientsor visitors in most situations. Similar to time spent indoors at other locations, there is the chance that you were exposed to respiratory viruses during your time with us (such as flu or COVID-19).? If you develop symptoms concerning for a viral respiratory infection, please seek testing (and treatment if indicated) from your medical provider or home test kit. For information about the plan of care [...] Team Personnel Name: .Cayla Jean RN Position: [facility] ED RN W/OE and Tasks Member Role: Primary Care Nurse Name: Alka Lee RN Position: [facility] RN Member Role: Primary Care Nurse Name: Jaleel Lo RN Position: [facility] RN Member Role: Primary Care Nurse Name: Ivy Smith RN Position: [facility] RN Member Role: Primary Care Nurse Name: Efra Mejia MD Position: [facility] Physician - Primary Care Member Role: PCP Address: Address: [address] [place] [address] Name: Devorah Johnson RN Position: [facility] RN Member Role: Primary Care Nurse Name: Dustin Chavez RN Position: [facility] RN Member Role: Primary Care Nurse Name: Litzy Weinberg RN Position: [facility] RN Member Role: Primary Care Nurse Name: Melanie Garay Position: [facility] RN Member Role: Primary Care Nurse Name: Yoselyn Patrick RN Position: [facility] RN Member Role: Primary Care Nurse Name: Michelle Akbar [place] Position: [facility] RN Member Role: Primary Care Nurse Name: Saundra Gonzalez Position: [facility] RN Member Role: Primary Care Nurse Name: Sofía Moreno RN Position: [facility] RN Member Role: Primary Care Nurse Name: Sary Tong RN Position: [facility] RN Member Role: Primary Care Nurse Name: Danielito Woo RN Position: [facility] Cvor Nurse Member Role: Primary Care Nurse Care Team Related Persons Name: TINY STEPHENS Address: home [address] [place] [address] Name: FERNIE CUMMINS Address: home [address] [place], [place] Name: TINY CUMMINS Address: home [address] [place] [address]
--- OUTSIDE RECORDS SUMMARY | 2023-10-18 20:39 | XMS_ITS | Continuity of Care Document ---
Author Name Unknown Organization [facility] Address [address] [place] [address]- Care Team Providers Care Farm Appraiser Name Role Phone Roberto CH, Efra Miramontes Primary Care Physician Encounter [facility] Date(s): 07/06/21 - 08/05/21 [facility] [address] [place] [address]- Attending Physician: Bobby Sandoval Admitting Physician: AdmtrBobby [...] 23-valent vaccine 8 04/01/12 Given 1Result Comment: [facility][note 2]#[id number] 2Result Comment: [07/31/2018] [facility][note 2]# [id number] 3Result Comment: [08/26/2015] [facility] 4Admin Note: VIM 03/17/12 5Admin Note: VIM 04/10/11 6Admin Note: VIM 08/03/08 7Admin Note: VIS GIVEN 04/10/13 8Admin Note: vis given dated 06/21/09 Medications donepezil 5 mg oral tablet 5 mg, 1, tablet, By Mouth, Daily, # 30 tablet, Refills 5, Tot. Refills 5, Maintenance, 06/02/21 14:20:00 EDT, Route to Pharmacy Electronically, [facility]/pharmacy #[id number], Partial fill upon patient request if the [...] AM, 0 Refills, Maintenance, 07/14/21 14:22:00 EDT, [place], Partial fill upon patient request if the [...] 5 Refills, Maintenance, 10/27/20 10:22:00 EST, Tablet, [facility]/pharmacy #[id number], 183, cm, 10/27/20 8:41:00 [...] Start Date: 07/13/21 Status: Ordered nystatin topical 964913 u/gm powder See Instructions, apply to stump [...] 5 Refills, Maintenance, 10/27/20 10:22:00 EST, ECCapsule, [facility]/pharmacy #[id number], 183, cm, 10/27/20 8:41:00 [...] 0 Refills, Maintenance, 07/06/21 12:35:00 EDT, Solution, [facility]/pharmacy #[id number], Partial [...]
--- OUTSIDE RECORDS SUMMARY | 2023-10-18 20:39 | XMS_ITS | Continuity of Care Document ---
Author Name Unknown Organization [facility] Address Unknown Care Team Providers Care Manager Labor Delivery Name Role Phone Roberto CH, Efra Miramontes Primary Care Physician Encounter [facility] Date(s): 03/04/21 - 07/02/21 [facility] Attending Physician: Janel Wang MD Admitting Physician: Janel Wang MD Allergies, Adverse Reactions, Alerts Substance Reaction [...] 1Admin Note: VIM 08/03/08 2Result Comment: [07/31/2018] [facility]# [id number] 3Result Comment: [08/26/2015] done at [facility] 4Admin Note: VIM 03/17/12 5Admin Note: [...] Gm, 5 Refills, Maintenance, 12/15/20 12:56:00 EDT, [place], [id number], Partial fill upon patient request [...] 0 Refills, Maintenance, 04/03/21 9:04:00 EDT, [facility]/pharmacy #[id number], Partial fill upon patient request if the prescription is for a schedule II opioid drug., 1 patch Topically Daily, 180, cm, 04/03/21 7:30:00 EDT, H... Start Date: 04/03/21 Status: Ordered lisinopril 20 mg oral tablet 20 mg, 1, tablet, By Mouth, Daily, # 30 tablet, Refills 0, Tot. Refills 0, Maintenance, 05/09/21 9:00:00 EDT, [id number] Partial fill upon patient request if the prescription is for a schedule II opioid drug.... Start Date: 05/09/21 Status: Ordered nystatin topical 256051 u/gm powder See Instructions, apply to stump daily, # 30 Gm, 5 Refills, Maintenance, 12/15/20 12:56:00 EDT, Powder, [facility]/pharmacy #[id number], Partial fill upon patient request if the prescription is for a schedule II opioid drug., apply to stump daily, 183, cm, ... Start Date: 12/15/20 Status: Ordered omeprazole 20 mg oral enteric coated capsule 1 capsule = 20 mg, By Mouth, Daily, # 30 capsule, 5 Refills, Maintenance, 10/27/20 10:22:00 EST, ECCapsule, [facility]/pharmacy #[id number], 183, cm, 10/27/20 [...] Refills, Maintenance, 06/21/21 8:48:00 EDT, Solution, [facility]/pharmacy #[id number], Partial fill upon patient request if the [...]
--- OUTSIDE RECORDS SUMMARY | 2023-10-18 20:39 | XMS_ITS | Continuity of Care Document ---
Author Name Unknown Organization [facility] Address [address] [place] [address]- Care Team Providers Care Wildland Fire Fighter Name Role Phone Efra Mejia MD Primary Care Physician Encounter [facility] Date(s): 03/27/23 - 04/26/23 [facility] [address] [place] [address]- Allergies, Adverse Reactions, Alerts No Known Allergies Immunizations Given and Recorded Vaccine Date Status Refusal Reason SARS-CoV-2 mRNA (eflbcqd-phcq-hqtig) vax 04/27/22 Recorded influenza virus vaccine, inactivated [...] vaccine 8 04/01/12 Given 1Result Comment: [facility]#[id number] 2Result Comment: [07/31/2018] [facility]# [id number] 3Result Comment: [08/26/2015] done at [facility] 4Admin Note: VIM 03/17/12 5Admin Note: VIM [...] 05/07/23 15:44:00 EDT, 04/23/23 15:44:00 EDT, Tablet, [facility]/pharmacy #[id number], dose change, 181.5, cm, 04/23/23 15:02:00 EDT,Height, 103, kg, 10/26/22 11:39:00 EST, Dry Weight Start Date: 04/23/23 Stop Date: 05/07/23 Status: Ordered fluticasone 50 mcg/inh nasal spray 2 sprays, Nares, Both, Daily in AM, 0 Refills, Maintenance, 07/14/21 14:22:00 EDT, [place], Partial fill upon patient request if the [...] 03/27/23 17:30:00 EDT, Route to Pharmacy Electronically, [facility]/pharmacy #[id number], override needed for lost prescription, thanks., 181.5, cm, 03/07/23 10:11:0... Start Date: 03/27/23 Status: Ordered levothyroxine 0.112 mg oral tablet 2 tablet = 224 mcg, By Mouth, Daily, # 60 tablet, 2 Refills, Maintenance, 03/27/23 12:47:00 EDT, Tablet, [facility]/pharmacy #[id number], 181.5, cm, 03/07/23 10:11:00 [...] Stop Date: 05/07/23 Status: Ordered nystatin topical 226526 u/gm powder See Instructions, apply to stump 3 x day, # 120 Gm, 5 Refills, Maintenance, 04/23/23 15:43:00 EDT, Pow[place], [id number], Partial fill upon patient request if the prescription is for a schedule II opioid drug., apply to stump 3 x day, 181.5, cm... Start Date: 04/23/23 Status: Ordered nystatin topical 760614 u/gm powder See Instructions, apply to stump [...] in AM, 1 film sublingual in PM [id number], # 75 film, 1 Refills, Maintenance, 04/26/23 8:11:00 EDT, [facility]/pharmacy #[id number], 1.5 films sublingual in AM, 1 film sublingual in PM ; [id number], 181.5, cm, 04/23/23 15:02:... Start Date: 04/26/23 [...] Team Personnel Name: .Cayla Jean RN Position: [facility] ED RN W/OE and Tasks Member Role: Primary Care Nurse Name: Alka Lee RN Position: [facility] RN Member Role: Primary Care Nurse Name: Jaleel Lo RN Position: [facility] RN Member Role: Primary Care Nurse Name: Ivy Smith RN Position: [facility] RN Member Role: Primary Care Nurse Name: Efra Mejia MD Position: [facility] Physician - Primary Care Member Role: PCP Address: Address: [address] [place] [address] Name: Devorah Johnson RN Position: [facility] RN Member Role: Primary Care Nurse Name: Dustin Chavez RN Position: [facility] RN Member Role: Primary Care Nurse Name: Litzy Weinberg RN Position: [facility] RN Member Role: Primary Care Nurse Name: Melanie Garay Position: [facility] RN Member Role: Primary Care Nurse Name: Michelle Akbar [place] Position: [facility] RN Member Role: Primary Care Nurse Name: Saundra Gonzalez Position: [facility] RN Member Role: Primary Care Nurse Name: Sofía Moreno RN Position: [facility] RN Member Role: Primary Care Nurse Name: Sary Tong RN Position: [facility] RN Member Role: Primary Care Nurse Name: Sophia Lomas RN Position: [facility] RN Member Role: Primary Care Nurse Name: Danielito Woo RN Position: [facility] Hospital Glass Bender Member Role: Primary Care Nurse Care Team Related Persons Name: TINY STEPHENS Address: [address] [address] Name: FERNIE CUMMINS Address: [address] [address] Name: TINY CUMMINS Address: [address] [address]
--- OUTSIDE RECORDS SUMMARY | 2023-10-18 20:39 | XMS_ITS | Continuity of Care Document ---
Author Name Unknown Organization [facility] Address [address] [place] [address]- Care Team Providers Care Family Development Extension Specialist Name Role Phone Roberto CH, Efra Miramontes Primary Care Physician Encounter [facility] Date(s): 12/19/22 - 01/18/23 [facility] [address] [place], [place] [address] Allergies, Adverse Reactions, Alerts No Known [...] Given 1Result Comment: [facility]#[id number] 2Result Comment: [07/31/2018] [facility]# [id number] 3Result Comment: [08/26/2015] done at [facility] 4Admin Note: VIM 03/17/12 5Admin Note: VIM 04/10/11 6Admin Note: VIM 08/03/08 7Admin Note: VIS GIVEN 04/10/13 8Admin Note: vis given dated 06/21/09 Medications ARIPiprazole 5 mg oral tablet 5 mg, 1, tablet, By Mouth, Daily, # 90 tablet, Refills 1, Tot. Refills 1, Maintenance, 09/28/22 8:16:00 EST, Route to Pharmacy Electronically, [facility]/pharmacy #[id number], Partial fill upon patient request ifthe prescription is for a schedule II opioid drug.,... Start Date: 09/28/22 Stop Date: 03/27/23 Status: Ordered citalopram 40 mg oral tablet 40 mg, 1, tablet, By Mouth, Daily, Take with food., # 90 tablet, Refills 1, Tot. Refills 1, Maintenance, 09/28/22 8:16:00 EST, Route to Pharmacy Electronically, [facility]/pharmacy #[id number], 181.5, cm, 08/30/22 16:11:00 EST, Height, 105, kg, 09/26/21 3:23:00 ES... Start Date: 09/28/22 Stop Date: 03/27/23 Status: Ordered donepezil 10 mg oral tablet 10 mg, 1, tablet, By Mouth, Daily at bedtime, # 90 tablet, Refills 2, Tot. Refills 2, Maintenance, 10/11/22 12:01:00 EST, Route to Pharmacy Electronically, [facility]/pharmacy #[id number], Partial fill upon [...] AM, 0 Refills, Maintenance, 07/14/21 14:22:00 EDT, [place], Partial fill upon patient request if the [...] 12/23/22 8:36:00 EDT, Route to Pharmacy Electronically, [facility]/pharmacy #[id number], Partial fill upon patient request if the prescription is for a schedule II o... Start Date: 12/23/22 Status: Ordered levothyroxine 0.112 mg oral tablet 2 tablet = 224 mcg, By Mouth, Daily, # 60 tablet, 2 Refills, Maintenance, 12/19/22 16:00:00 EDT, Tablet, [facility]/pharmacy #[id number], 181.5, cm, 10/26/22 11:39:00 EST, [...] Start Date: 07/13/21 Status: Ordered nystatin topical 443772 u/gm powder See Instructions, apply to stump 3 x day, # 120 Gm, 5 Refills, Maintenance, 07/06/21 12:35:00 EDT, Powder, [facility]/pharmacy #[id number], Partial fill upon patient request if the prescription is for a schedule II opioid drug., apply to stump 3 x day, 180, cm,... Start Date: 07/06/21 Status: Ordered omeprazole 20 mg oral enteric coated capsule 1 capsule = 20 mg, By Mouth, Daily, # 30 capsule, 0 Refills, Maintenance, 12/19/22 16:00:00 EDT, ECCapsule, [facility]/pharmacy #[id number], 181.5, cm, 10/26/22 11:39:00 EST, [...] 1 Refills, Maintenance, 09/28/22 8:16:00 EST, Tablet, [facility]/pharmacy #[id number], Partial fill upon [...] in AM, 1 film sublingual in PM [id number], # 75 film, 1 Refills, Maintenance, 12/18/22 8:06:00 EDT, [facility]/pharmacy #[id number], 1.5 films sublingual in AM, 1 film sublingual in PM ; [id number], 181.5, cm, 10/26/22 11:39:... Start Date: 12/18/22 Status: Ordered tamsulosin 0.4 mg oral capsule 0.4 mg, 1, capsule, By Mouth, Daily, # 90 capsule, Refills 3, Tot. Refills 3, Maintenance, 12/20/2315:00:00 EDT, Route to Pharmacy Electronically, [facility]/pharmacy #[id number], Partial fill upon patient request if the [...] Team Personnel Name: Cayla Herrera RN Position: [facility] ED RN W/OE and Tasks Member Role: Primary Care Nurse Name: Alka Lee RN Position: [facility] SN RN Member Role: Primary Care Nurse Name: Jaleel Lo RN Position: [facility] RN Member Role: Primary Care Nurse Name: Ivy Smith RN Position: [facility] RN Member Role: Primary Care Nurse Name: Efra Mejia MD Position: [facility] Primary Care Physician Member Role: PCP Address: Address: [address] [place] [id number] Name: Devorah Johnson RN Position: [facility] RN Member Role: Primary Care Nurse Name: Dustin Chavez RN Position: [facility] RN Member Role: Primary Care Nurse Name: Litzy Weinberg RN Position: [facility] RN Member Role: Primary Care Nurse Name: Melanie Garay Position: [facility] RN Member Role: Primary Care Nurse Name: Michelle Buckley Position: [facility] RN Member Role: Primary Care Nurse Name: Saundra Gonzalez Position: [facility] RN Member Role: Primary Care Nurse Name: Sofía Moreno RN Position: [facility] RN Member Role: Primary Care Nurse Name: Sary Tong RN Position: [facility] RN Member Role: Primary Care Nurse Name: Sophia Lomas RN Position: [facility] RN Member Role: Primary Care Nurse Name: Danielito Woo RN Position: [facility] Science Consultant Member Role: Primary Care Nurse Care Team Related Persons Name: ANGELOTINY Address: [address] [place] [address] Name: FERNIE CUMMINS Address: home [address] [place], [place] Name: TINY CUMMINS Address: [address] [place] [address]
--- OUTSIDE RECORDS SUMMARY | 2023-10-18 20:39 | XMS_ITS | Continuity of Care Document ---
Author Name Unknown Organization [facility] Address [address] [place] [address]- Care Team Providers Care Bank Representative Name Role Phone Roberto CH, Efra Miramontes Primary Care Physician [phone] [place] [facility] Date(s): 03/22/22 - 04/21/22 [facility] [address] [place], [place] [address] Allergies, Adverse Reactions, Alerts No Known Allergies [...] 23-valent vaccine 8 04/01/12 Given 1Result Comment: [facility]#[id number] 2Result Comment: [07/31/2018] [facility]# [id number] 3Result Comment: [08/26/2015] done at [facility] 4Admin Note: VIM 03/17/12 5Admin Note: VIM 04/10/11 6Admin Note: VIM 08/03/08 7Admin Note: VIS GIVEN 04/10/13 8Admin Note: vis given dated 06/21/09 Medications donepezil 5 mg oral tablet 1, tablet, By Mouth, Daily, # 90 tablet, Refills 1, Route to Pharmacy Electronically, [id number], 181.5, cm, 09/28/21 12:39:00 EST, Height, 105, [...] AM, 0 Refills, Maintenance, 07/14/21 14:22:00 EDT, [place], Partial fill upon patient request if the [...] 03/22/22 15:36:00 EDT, Route to Pharmacy Electronically, [facility]/pharmacy #[id number], Partial fill upon patient request if the prescription is for a schedule II... Start Date: 03/22/22 Status: Ordered Iodosorb 0.9% topical gel See Instructions, Continue wound care with iodosorb gel and 2x2 dressing daily to small wound Betadine pain to incision, # 1 each, 0 Refills, Maintenance, 09/28/21 18:43:00 EST, [facility]/pharmacy #[id number], Partial fill upon patient request if the prescripti... Start Date: 09/28/21 Status: Ordered levothyroxine 0.112 mg oral tablet 2 tablet = 224 mcg, By Mouth, Daily, # 60 tablet, 2 Refills, Maintenance, 03/22/22 13:10:00 EDT, Tablet, [facility]/pharmacy #[id number], 181.5, cm, 09/28/21 12:39:00 EST, [...] Start Date: 07/13/21 Status: Ordered nystatin topical 979651 u/gm powder See Instructions, apply to stump 3 x day, # 120 Gm, 5 Refills, Maintenance, 07/06/21 12:35:00 EDT, Powder, [facility]/pharmacy #[id number], Partial fill upon patient request if the prescription is for a schedule II opioid drug., apply to stump 3 x day, 180, cm,... Start Date: 07/06/21 Status: Ordered omeprazole 20 mg oral enteric coated capsule 1 capsule = 20 mg, By Mouth, Daily, # 30 capsule, 2 Refills, Maintenance, 03/22/22 13:10:00 EDT, ECCapsule, [facility]/pharmacy #[id number], 181.5, cm, 09/28/21 12:39:00 EST, Height, 105, kg, 09/26/21 3:23:00 EST, Dry Weight Start Date: 03/22/22 Status: Ordered tamsulosin 0.4 mg oral capsule 0.4 mg, 1, capsule, By Mouth, Daily, # 90 capsule, Refills 3, Tot. Refills 3, Maintenance, 07/06/2111:55:00 EDT, Route to Pharmacy Electronically, [facility]/pharmacy #[id number], Partial fill upon patient request if the prescription is for a schedule II opioid d... Start Date: 07/06/21 Status: Ordered Trulicity Pen 0.75 mg/0.5 mL subcutaneous solution 0.5 mL = 0.75 mg, Subcutaneous Injection, Every week, rotate injection sites, # 2 mL, 5 Refills, Maintenance, 10/05/21 11:20:00 EST, Solution, [facility]/pharmacy #[id number], Partial fill upon patient request [...]
--- OUTSIDE RECORDS SUMMARY | 2023-10-18 20:39 | XMS_ITS | Continuity of Care Document ---
Author Name Unknown Organization [facility] Address [address] [place] [address]- Care Team Providers Care University Demonstrator Name Role Phone Roberto CH, Efra Miramontes Primary Care Physician [phone] Encounter [facility] Date(s): 10/10/21 - 11/09/21 [facility] [address] [place], [place] [address] Attending Physician: Bobby Sandoval Admitting Physician: [...] vaccine 8 04/01/12 Given 1Result Comment: [facility]#[id number] 2Result Comment: [07/31/2018] [facility]# [id number] 3Result Comment: [08/26/2015] done at [facility] 4Admin Note: VIM [...] AM, 0 Refills, Maintenance, 07/14/21 14:22:00 EDT, [place], Partial fill upon patient request if the [...] each, 0 Refills, Maintenance, 09/28/21 18:43:00 EST, [facility]/pharmacy #[id number], Partial fill upon [...] Start Date: 07/13/21 Status: Ordered nystatin topical [id number] u/gm powder See Instructions, apply to stump [...] 5 Refills, Maintenance, 10/05/21 11:20:00 EST, Solution, [facility]/pharmacy #[id number], Partial fill [...]
--- OUTSIDE RECORDS SUMMARY | 2023-10-18 20:39 | XMS_ITS | Continuity of Care Document ---
Author Name Unknown Organization [facility] Address [address] [place] [address]- Care Team Providers Care Interior Decorator Paperhanging Name Role Phone Efra Mejia MD Primary Care Physician [phone] Encounter [facility] Date(s): 03/31/20 - 04/07/20 [facility] [address] [place] [address]- [facility] Attending Physician: Efra Mejia MD Allergies, [...] [07/31/2018] [facility]# [id number] 2Result Comment: [08/26/2015] done at [facility] 3Admin Note: VIM 03/17/12 4Admin Note: VIM 04/10/11 5Admin Note: VIS GIVEN 04/10/13 6Admin Note: vis given dated 06/21/09 7Admin Note: VIM 08/03/08 Medications albuterol CFC free 90 mcg/inh inhalation aerosol 1, puffs, Inhalation, 4 times a day, PRN, # 18 Gm, Refills 0, Tot. Refills 0, Maintenance, 12/02/2009:56:00 EDT, Aerosol, Route to Pharmacy Electronically, [id number], [facility]/pharmacy #[id number], 180.3, cm, 11/12/19 [...] 1 Refills, Maintenance, 11/12/19 10:02:00 EST, Gel, [facility]/pharmacy #[id number], 180.3, cm, 11/12/19 [...] Maintenance, 07/02/16 16:06:12, Route to Pharmacy Electronically, [id number], [facility] #36 Start Date: [...] 5 Refills, Maintenance, 10/22/19 10:55:00 EST, Tablet, [facility]/pharmacy #[id number], 180.3, cm, 10/22/19 10:14:00 EST, Height, 118.5, kg, 05/12/19 10:33:00 EDT, Dry Weight Start Date: 10/22/19 Status: Ordered ibuprofen 800 mg oral tablet 800 mg, 1, tablet, By Mouth, Every 8 hours, PRN, # 90 tablet, Refills 0, Tot. Refills 0, Maintenance, as needed for pain, 04/10/19 17:13:55 EDT, Route to Pharmacy Electronically, [id number], [facility] #36 Start Date: [...] 5 Refills, Maintenance, 01/12/20 14:27:00 EDT, Tablet, [facility]/pharmacy #[id number], 180.3, cm, 01/12/20 13:41:00 EDT, Height, 120.7, kg, 11/03/19 13:31:00EST, Dry Weight Start Date: 01/12/20 Status: Ordered Lantus Solostar Pen 100 units/mL subcutaneous solution = 60 units, Subcutaneous Injection, 2 times a day, # 15 mL, 5 Refills, Maintenance, 01/19/20 15:07:00 EDT, Solution, [facility]/pharmacy #[id number], 180.3, cm, 01/19/20 [...] 01/20/18 13:36:03 EDT, Route to Pharmacy Electronically, [id number], [facility] #[facility] Start Date: 01/20/18 Stop Date: 01/15/19 Status: Ordered Mavyret 100 mg-40 mg oral tablet 3 tablet, By Mouth, Daily, x 8 weeks, # 84 tablet, 1 Refills, Maintenance, 02/05/20 14:18:00 EDT, Tablet, [facility], 3 tablet By Mouth [...] 11/12/19 15:56:00 EST, Route to Pharmacy Electronically, [facility]/pharmacy #[id number], 180.3, cm, 11/12/19 [...] Weight Start Date: 08/27/19 Status: Ordered Pen Doran, 29 G x 12.7 mm BD Ultra [...] oldest [Reference Range]: 1 Height 180.3 cm (03/31/20 12:50 PM) Social History Social History Type Response Tobacco Other: 3 cigars brenden y. Sex Male
--- OUTSIDE RECORDS SUMMARY | 2023-10-18 20:39 | XMS_ITS | Continuity of Care Document ---
Author Name Unknown Organization [facility] Address [address] [place] [address]- Care Team Providers Care Maintenance Pipefitter Name Role Phone Roberto CH, Efra Miramontes Primary Care Physician Encounter [facility] Date(s): 09/07/22 - 10/07/22 [facility] [address] [place], [place] [address] Allergies, Adverse Reactions, Alerts No [...] Given 1Result Comment: [facility]#[id number] 2Result Comment: [07/31/2018] [facility]# [id number] 3Result Comment: [08/26/2015] done at [facility] 4Admin Note: VIM 03/17/12 5Admin Note: VIM 04/10/11 6Admin Note: VIM 08/03/08 7Admin Note: VIS GIVEN 04/10/13 8Admin Note: vis given dated 06/21/09 Medications ARIPiprazole 5 mg oral tablet 5 mg, 1, tablet, By Mouth, Daily, # 90 tablet, Refills 1, Tot. Refills 1, Maintenance, 09/28/22 8:16:00 EST, Route to Pharmacy Electronically, [facility]/pharmacy #[id number], Partial fill upon patient request ifthe prescription is for a schedule II opioid drug.,... Start Date: 09/28/22 Stop Date: 03/27/23 Status: Ordered citalopram 40 mg oral tablet 40 mg, 1, tablet, By Mouth, Daily, Take with food., # 90 tablet, Refills 1, Tot. Refills 1, Maintenance, 09/28/22 8:16:00 EST, Route to Pharmacy Electronically, [facility]/pharmacy #[id number], 181.5, cm, 08/30/22 16:11:00 EST, Height, 105, kg, 09/26/21 3:23:00 ES... Start Date: 09/28/22 Stop Date: 03/27/23 Status: Ordered donepezil 10 mg oral tablet 10 mg, 1, tablet, By Mouth, Daily at bedtime, # 90 tablet, Refills 1, Tot. Refills 1, Maintenance, 05/08/22 9:47:00 EDT, Route to Pharmacy Electronically, [facility]/pharmacy #[id number], Partial fill upon patient request if [...] AM, 0 Refills, Maintenance, 07/14/21 14:22:00 EDT, [place], Partial fill upon patient request if the [...] 09/17/22 12:54:00 EST, Route to Pharmacy Electronically, [facility]/pharmacy #[id number], Partial fill upon patient request if the prescription is for a schedule II... Start Date: 09/17/22 Status: Ordered levothyroxine 0.112 mg oral tablet 2 tablet = 224 mcg, By Mouth, Daily, # 60 tablet, 2 Refills, Maintenance, 09/05/22 12:50:00 EST, Tablet, [facility]/pharmacy #[id number], 181.5, cm, 08/30/22 16:11:00 EST, Height, [...] Start Date: 07/13/21 Status: Ordered nystatin topical [id number] u/gm powder See Instructions, apply to stump 3 x day, # 120 Gm, 5 Refills, Maintenance, 07/06/21 12:35:00 EDT, Powder, [facility]/pharmacy #[id number], Partial fill upon patient request if the prescription is for a schedule II opioid drug., apply to stump 3 x day, 180, cm,... Start Date: 07/06/21 Status: Ordered omeprazole 20 mg oral enteric coated capsule 1 capsule = 20 mg, By Mouth, Daily, # 30 capsule, 0 Refills, Maintenance, 08/28/22 13:07:00 EST, ECCapsule, [facility]/pharmacy #[id number], 181.5, cm, 05/08/22 8:39:00 EDT, Height, 105, kg, 09/26/21 3:23:00 EST, Dry Weight Start Date: 08/28/22 Status: Ordered prazosin 2 mg oral capsule 2 capsule = 4 mg, By Mouth, Daily at bedtime, dose increase, # 180 capsule, 1 Refills, Maintenance,09/28/22 8:17:00 EST, Capsule, [facility]/pharmacy #[id number], Partial fill upon patient request if the prescription is for a schedule II opioid drug., 181.5, cm,... Start Date: 09/28/22 Stop Date: 03/27/23 Status: Ordered ramelteon 8 mg oral tablet 1 tablet = 8 mg, By Mouth, Daily at bedtime, # 90 tablet, 1 Refills, Maintenance, 09/28/22 8:16:00 EST, Tablet, [facility]/pharmacy #[id number], Partial fill upon patient request if the prescription is for a schedule II opioid drug., 181.5, cm, 08/30/22 16:11:00 E... Start Date: 09/28/22 Stop Date: 03/27/23 Status: Ordered Suboxone 8 mg-2 mg Sublingual Film See Instructions, 1.5 films sublingual in AM, 1 film sublingual in PM [id number], # 75 film, 1 Refills, Maintenance, 09/28/22 8:16:00 EST, [facility]/pharmacy #[id number], 1.5 films sublingual in AM, 1 film sublingual in PM ; [id number], 181.5, cm, 08/30/22 16:11:... Start Date: 09/28/22 Status: Ordered tamsulosin 0.4 mg oral capsule 0.4 mg, 1, capsule, By Mouth, Daily, # 90 capsule, Refills 3, Tot. Refills 3, Maintenance, 07/06/2111:55:00 EDT, Route to Pharmacy Electronically, [facility]/pharmacy #[id number], Partial fill upon patient request if [...] Team Personnel Name: Alka Lee RN Position: [facility] RN Member Role: Primary Care Nurse Name: Jaleel Lo RN Position: [facility] RN Member Role: Primary Care Nurse Name: Ivy Smith RN Position: [facility] RN Member Role: Primary Care Nurse Name: Efra Mejia MD Position: [facility] Primary Care Physician Member Role: PCP Address: Address: [address] [place] [address] Name: Devorah Johnson RN Position: [facility] RN Member Role: Primary Care Nurse Name: Dustin Chavez RN Position: [facility] RN Member Role: Primary Care Nurse Name: Litzy Weinberg RN Position: [facility] RN Member Role: Primary Care Nurse Name: Melanie Garay Position: [facility] RN Member Role: Primary Care Nurse Name: Yoselyn Patrick RN Position: [facility] RN Member Role: Primary Care Nurse Name: Michelle Buckley Position: [facility] RN Member Role: Primary Care Nurse Name: Saundra Gonzalez Position: [facility] RN Member Role: Primary Care Nurse Name: Sofía Moreno RN Position: [facility] RN Member Role: Primary Care Nurse Name: Sary Tong RN Position: [facility] RN Member Role: Primary Care Nurse Name: Sophia Lomas RN Position: [facility] RN Member Role: Primary Care Nurse Name: Danielito Woo RN Position: [facility] [employer] Repairer Member Role: Primary Care Nurse Care Team Related Persons Name: ANGELOTINY Address: home [address] [place] [address] Name: FERNIE CUMMINS Address: [address] [facility] [place], [place] Name: TINY CUMMINS Address: home [address] [place] [address]
--- OUTSIDE RECORDS SUMMARY | 2023-10-18 20:39 | XMS_ITS | Continuity of Care Document ---
Author Name Unknown Organization [facility] Address [address] [place] [address]- Care Team Providers Care Coil Winding Supervisor Name Role Phone Roberto CH, Efra Miramontes Primary Care Physician [phone] Encounter [facility] Date(s): 08/22/22 - 09/21/22 [facility] [address], [place] [address] Allergies, Adverse Reactions, Alerts No [...] Given 1Result Comment: [facility]#[id number] 2Result Comment: [07/31/2018] [facility]# [id number] 3Result Comment: [08/26/2015] done at [facility] 4Admin Note: VIM 03/17/12 5Admin Note: VIM 04/10/11 6Admin Note: VIM 08/03/08 7Admin Note: VIS GIVEN 04/10/13 8Admin Note: vis given dated 06/21/09 Medications ARIPiprazole 5 mg oral tablet 5 mg, 1, tablet, By Mouth, Daily, # 90 tablet, Refills 1, Tot. Refills 1, Maintenance, 06/05/22 10:07:00 EDT, Route to Pharmacy Electronically, [facility]/pharmacy #[id number], Partial fill upon patient request if the prescription is for a schedule II opioid drug.... Start Date: 06/05/22 Stop Date: 12/02/22 Status: Ordered citalopram 40 mg oral tablet 40 mg, 1, tablet, By Mouth, Daily, Take with food., # 90 tablet, Refills 1, Tot. Refills 1, Maintenance, 06/05/22 10:06:00 EDT, Route to Pharmacy Electronically, [facility]/pharmacy #[id number], 181.5, cm, 05/08/22 8:39:00 EDT, Height, 105, kg, 09/26/21 3:23:00 ES... Start Date: 06/05/22 Stop Date: 12/02/22 Status: Ordered donepezil 10 mg oral tablet 10 mg, 1, tablet, By Mouth, Daily at bedtime, # 90 tablet, Refills 1, Tot. Refills 1, Maintenance, 05/08/22 9:47:00 EDT, Route to Pharmacy Electronically, [facility] [...] AM, 0 Refills, Maintenance, 07/14/21 14:22:00 EDT, [place], Partial fill upon patient request if the [...] 09/17/22 12:54:00 EST, Route to Pharmacy Electronically, [facility]/pharmacy #[id number], Partial fill upon patient request if the prescription is for a schedule II... Start Date: 09/17/22 Status: Ordered levothyroxine 0.112 mg oral tablet 2 tablet = 224 mcg, By Mouth, Daily, # 60 tablet, 2 Refills, Maintenance, 09/05/22 12:50:00 EST, Tablet, [facility]/pharmacy #[id number], 181.5, cm, 08/30/22 16:11:00 EST, Height, [...] Start Date: 07/13/21 Status: Ordered nystatin topical 435362 u/gm powder See Instructions, apply to stump [...] 0 Refills, Maintenance, 08/28/22 13:07:00 EST, ECCapsule, [facility]/pharmacy #[id number], 181.5, cm, 05/08/22 8:39:00 EDT, Height, 105, kg, 09/26/21 3:23:00 EST, Dry Weight Start Date: 08/28/22 Status: Ordered prazosin 2 mg oral capsule 1 capsule = 2 mg, By Mouth, Daily at bedtime, # 90 capsule, 1 Refills, Maintenance, 06/05/22 10:07:00 EDT, Capsule, [facility]/pharmacy #[id number], Partial fill upon patient request if the prescription is for a schedule II opioid drug., 181.5, cm, 05/08/22 8:39:0... Start Date: 06/05/22 Stop Date: 12/02/22 Status: Ordered ramelteon 8 mg oral tablet 1 tablet = 8 mg, By Mouth, Daily at bedtime, # 90 tablet, 1 Refills, Maintenance, 06/05/22 10:07:00EDT, Tablet, [facility]/pharmacy #[id number], Partial fill upon patient request if the prescription is for a schedule II opioid drug., 181.5, cm, 05/08/22 8:39:00 E... Start Date: 06/05/22 Stop Date: 12/02/22 Status: Ordered Suboxone 8 mg-2 mg Sublingual Film See Instructions, 1.5 films sublingual in AM, 1 film sublingual in PM [id number] next appt 09/04, # 75 film, 0 Refills, Maintenance, 08/28/22 16:20:00 EST, [facility]/pharmacy #[id number], 1.5 films sublingual in AM, 1 film sublingual in PM ; [id number]; next celestina... Start Date: 08/28/22 Status: Ordered tamsulosin 0.4 mg oral capsule 0.4 mg, 1, capsule, By Mouth, Daily, # 90 capsule, Refills 3, Tot. Refills 3, Maintenance, 07/06/2111:55:00 EDT, Route to Pharmacy Electronically, [facility] [...] Team Personnel Name: Alka Lee RN Position: [facility] RN Member Role: Primary Care Nurse Name: Jaleel Lo RN Position: [facility] RN Member Role: Primary Care Nurse Name: Ivy Smith RN Position: [facility] RN Member Role: Primary Care Nurse Name: Efra Mejia MD Position: [facility] Primary Care Physician Member Role: PCP Address: Address: [address] [place] [address] Name: Devorah Jhonson RN Position: [facility] RN Member Role: Primary Care Nurse Name: Dustin Chavez RN Position: [facility] RN Member Role: Primary Care Nurse Name: Litzy Weinberg RN Position: [facility] RN Member Role: Primary Care Nurse Name: Melanie Garay Position: [facility] RN Member Role: Primary Care Nurse Name: Yoselyn Patrick RN Position: [facility] RN Member Role: Primary Care Nurse Name: Michelle Buckley Position: [facility] RN Member Role: Primary Care Nurse Name: Saundra Gonzalez Position: [facility] RN Member Role: Primary Care Nurse Name: Sofía Moreno RN Position: [facility] RN Member Role: Primary Care Nurse Name: Sary Tong RN Position: [facility] RN Member Role: Primary Care Nurse Name: Sophia Lomas RN Position: [facility] RN Member Role: Primary Care Nurse Name: Danielito Woo RN Position: [facility] [employer] Member Role: Primary Care Nurse Care Team Related Persons Name: ANGELOTINY Address: home [address], [place] Name: FERNIE CUMMINS Address: [address], [place] Name: TINY CUMMINS Address: [address]
--- OUTSIDE RECORDS SUMMARY | 2023-10-18 20:40 | XMS_ITS | Continuity of Care Document ---
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#[id number] 2Result Comment: [07/31/2018] [facility]# [id number] 3Result Comment: [08/26/2015] [facility] 4Admin Note: VIM 03/17/12 5Admin Note: VIM 04/10/11 6Admin Note: VIM 08/03/08 7Admin Note: VIS GIVEN 04/10/13 8Admin Note: vis given dated 06/21/09 Medications ARIPiprazole 5 mg oral tablet 5 mg, 1, tablet, By Mouth, Daily, # 90 tablet, Refills 1, Tot. Refills 1, Maintenance, 09/28/22 8:16:00 EST, Route to Pharmacy Electronically, [facility]/pharmacy #[id number], Partial fill upon patient request ifthe prescription is for a schedule II opioid drug.,... Start Date: 09/28/22 Stop Date: 03/27/23 Status: Ordered citalopram 40 mg oral tablet 40 mg, 1, tablet, By Mouth, Daily, Take with food., # 90 tablet, Refills 1, Tot. Refills 1, Maintenance, 09/28/22 8:16:00 EST, Route to Pharmacy Electronically, [facility]/pharmacy #[id number], 181.5, cm, 08/30/22 16:11:00 EST, Height, 105, kg, 09/26/21 3:23:00 ES... Start Date: 09/28/22 Stop Date: 03/27/23 Status: Ordered donepezil 10 mg oral tablet 10 mg, 1, tablet, By Mouth, Daily at bedtime, # 90 tablet, Refills 2, Tot. Refills 2, Maintenance, 10/11/22 12:01:00 EST, Route to Pharmacy Electronically, [facility]/pharmacy #[id number], Partial fill upon patient [...] AM, 0 Refills, Maintenance, 07/14/21 14:22:00 EDT, [place], Partial fill upon patient request if the [...] 16:37:00 EDT, Route to Pharmacy Electronically, [facility]/pharmacy #[id number], override needed for lost prescription, thanks., 181.5, cm, 10/26/22 11:39:0... Start Date: 01/30/23 Status: Ordered levothyroxine 0.112 mg oral tablet 2 tablet = 224 mcg, By Mouth, Daily, # 60 tablet, 2 Refills, Maintenance, 12/19/22 16:00:00 EDT, Tablet, [facility]/pharmacy #[id number], 181.5, cm, 10/26/22 11:39:00 [...] Start Date: 07/13/21 Status: Ordered nystatin topical [id number] u/gm powder See Instructions, apply to stump 3 x day, # 120 Gm, 5 Refills, Maintenance, 07/06/21 12:35:00 EDT, Powder, [facility]/pharmacy #[id number], Partial fill upon patient [...] Refills, Maintenance, 09/28/22 8:16:00 EST, Tablet, [facility]/pharmacy #[id number], Partial fill upon patient [...] in AM, 1 film sublingual in PM [id number], # 75 film, 1 Refills, Maintenance, 12/18/22 8:06:00 EDT, [facility]/pharmacy #[id number], 1.5 films sublingual in AM, 1 film sublingual in PM ; [id number], 181.5, cm, 10/26/22 11:39:... Start Date: 12/18/22 Status: Ordered tamsulosin 0.4 mg oral capsule 0.4 mg, 1, capsule, By Mouth, Daily, # 90 capsule, Refills 3, Tot. Refills 3, Maintenance, 12/20/2315:00:00 EDT, Route to Pharmacy Electronically, [facility]/pharmacy #[id number], Partial fill upon patient [...] Effective Dates Health Status Clinical Service Informant Parkinsonism Discharge Diagnosis 02/05/23 Alzheimer's dementia Discharge Diagnosis 02/05/23 Hypotension due to drugs Discharge Diagnosis 02/05/23 Diabetic nephropathy Discharge Diagnosis 02/05/23 Anemia Discharge Diagnosis 02/05/23 Vital Signs Most recent to oldest [Reference Range]: 1 Height 181.5 cm (02/05/23 12:41 PM) Weight 99.6 kg (02/05/23 12:41 PM) Oxygen Saturation [94-100 %] 93 % *L* (02/05/23 12:41 PM) Pulse Rate [55-90 bpm] 84 bpm (02/05/23 12:41 PM) Body Mass Index [18.5-24.99 kg/m2] 30.23 kg/m2 *>HHI* (02/05/23 12:41 PM) Blood Pressure [90-138/55-84 mm Hg] 68/4 0mm Hg *L* (02/05/23 12:41 PM) Temperature [96.8-100.4 DegF] 98.8 DegF (02/05/23 12:41 PM) Blood pressure sites Arm, right (02/05/23 12:41 PM) Temperature Route Temporal (02/05/23 12:41 PM) Weight Obtained Via Standing scale (02/05/23 12:41 PM) Social History Social History Type Response Tobacco Other: 3 cigars brenden y. Sex Note * Kylee Carlson: PERFORM, SIGN, VERIFY Event Display: Patient Education/Instruction Authored Date: [id number] [facility] *[facility] Clinical Summary Name NIHARIKA CUMMINS Age 67 Years 1955 PCP Roberto CH, Efra Miramontes PCP Visit Date 02/05/2023 12:29:00 Additional Instructions: Scheduled Appointments?? Future Appointments ?*[facility] [address]??[place],??[place],??[address] ?Phone:??--?Fax:??-- ?Appt. Date:??02/19/2023?9:30 AM ?Scheduled Provider:??Rekha Fraire Follow-Up Instructions ?? Diagnosis Anemia, unspecified; Alzheimer's disease, unspecified; Parkinson's disease; Type 2 diabetes mellitus with diabetic nephropathy; Hypotension due to drugs Medications: Please continue your medications until treatment is completed or stopped by your provider. Discuss any questions related to medications with your provider. Medications to Continue with No Changes These [...] in AM, 1 film sublingual in PM [id number]. Refills: 1. Next Dose: Citalopram (citalopram 40 [...] 1 capsule Oral twice a day. Refills: 0. Next Dose: Levothyroxine (levothyroxine 0.112 mg oral tablet) 2 tab(s) Oral Daily for 30 Days. Refills: 2. Next Dose: Melatonin (melatonin 5 mg oral tablet) 1 tab(s) Oral Daily at Bedtime as needed for insomnia. Next Dose: Nystatin Topical (nystatin topical 557850 u/gm powder) apply to stump 3 x day. Refills: 5. Next Dose: Omeprazole (omeprazole 20 mg oral enteric coated capsule) 1 capsule Oral Daily. Refills: 5. Next Dose: Prazosin (prazosin 2 mg oral capsule) 2 capsule Oral Daily at Bedtime for 90 Days. dose increase. Refills: 1. Next Dose: Ramelteon (ramelteon 8 mg oral tablet) 1 tab(s) Oral Daily at Bedtime for 90 Days. Refills: 1. Next Dose: Tamsulosin (tamsulosin 0.4 mg oral capsule) 1 capsule Oral Daily. Refills: 3. Next Dose: Allergy Info:?? NKA Medications Given This Visit Future Orders ?No future orders Vital Signs Height 181.5 cm Weight 99.6 kg BMI 30.23 kg/m2 Blood Pressure 68 mm Hg/40 mm Hg Temperature 98.8 DegF Pulse Rate 84 bpm Respiratory Rate 02 Sat Mode of Delivery 93 %/ You can now view a summary of your hospital visit from the comfort of your home through a free online portal called [employer] is a website that allows you to securely view your medical information including discharge summary, medications and follow-up visits. ??You can alsosend a secure electronic message to your doctor???s office to request appointments, renew medications or just ask a question. You can enroll at [email or web address] or register during your next office [...] primary care provider, you may find a [facility] provider by calling [facility] at [phone]. For information about the plan of care [...] Team Personnel Name: Cayla Herrera RN Position: [facility] ED [...] Primary Care Member Role: PCP Address: Address: [address] [place] [id number] Name: Devorah Johnson RN Position: [facility] RN Member Role: Primary Care Nurse Name: Dustin Chavez RN Position: [facility] RN Member Role: Primary Care Nurse Name: Litzy Weinberg RN Position: [facility] RN Member Role: Primary Care Nurse Name: Melanie Garay Position: [facility] RN Member Role: Primary Care Nurse Name: Michelle Buckley Position: [facility] RN Member Role: Primary Care Nurse Name: Saundra Gonzalez Position: [facility] RN Member Role: Primary Care Nurse Name: Sofía Moreno RN Position: [facility] RN Member Role: Primary Care Nurse Name: Sary Tong RN Position: [facility] RN Member Role: Primary Care Nurse Name: Sophia Lomas RN Position: [facility] RN Member Role: Primary Care Nurse Name: Danielito Woo RN Position: [facility] Electronic Design Engineer Member Role: Primary Care Nurse Care Team Related Persons Name: TINY STEPHENS Address: [address] [place] [address] Name: FERNIE CUMMINS Address: [address] [place] [address] Name: TINY CUMMINS Address: [address] [place] [address]
--- OUTSIDE RECORDS SUMMARY | 2023-10-18 20:40 | XMS_ITS | Continuity of Care Document ---
Author Name Unknown Organization [facility] Address [address] [place] [address]- Care Team Providers Care Riding Teacher Name Role Phone Roberto CH, Efra Miramontes Primary Care Physician [place] [facility] Date(s): 11/01/22 - 12/01/22 [facility] [address] [place] [address]- Allergies, Adverse Reactions, Alerts No Known Allergies [...] vaccine 8 04/01/12 Given 1Result Comment: [facility]#[id number] 2Result Comment: [07/31/2018] [facility]# [id number] 3Result Comment: [08/26/2015] done at [facility] 4Admin Note: VIM 03/17/12 5Admin Note: VIM 04/10/11 6Admin Note: VIM 08/03/08 7Admin Note: VIS GIVEN 04/10/13 8Admin Note: vis given dated 06/21/09 Medications ARIPiprazole 5 mg oral tablet 5 mg, 1, tablet, By Mouth, Daily, # 90 tablet, Refills 1, Tot. Refills 1, Maintenance, 09/28/22 8:16:00 EST, Route to Pharmacy Electronically, [facility]/pharmacy #[id number], Partial fill upon patient request ifthe prescription is for a schedule II opioid drug.,... Start Date: 09/28/22 Stop Date: 03/27/23 Status: Ordered citalopram 40 mg oral tablet 40 mg, 1, tablet, By Mouth, Daily, Take with food., # 90 tablet, Refills 1, Tot. Refills 1, Maintenance, 09/28/22 8:16:00 EST, Route to Pharmacy Electronically, [facility]/pharmacy #[id number], 181.5, cm, 08/30/22 16:11:00 EST, Height, 105, kg, 09/26/21 3:23:00 ES... Start Date: 09/28/22 Stop Date: 03/27/23 Status: Ordered donepezil 10 mg oral tablet 10 mg, 1, tablet, By Mouth, Daily at bedtime, # 90 tablet, Refills 2, Tot. Refills 2, Maintenance, 10/11/22 12:01:00 EST, [facility] AM, 0 Refills, Maintenance, 07/14/21 14:22:00 EDT, [place], Partial fill upon patient request if the [...] 09/17/22 12:54:00 EST, Route to Pharmacy Electronically, [facility]/pharmacy #[id number], Partial fill upon patient request if the prescription is for a schedule II... Start Date: 09/17/22 Status: Ordered levothyroxine 0.112 mg oral tablet 2 tablet = 224 mcg, By Mouth, Daily, # 60 tablet, 2 Refills, Maintenance, 09/05/22 12:50:00 EST, Tablet, [facility]/pharmacy #[id number], 181.5, cm, 08/30/22 16:11:00 EST, [...] Start Date: 07/13/21 Status: Ordered nystatin topical 179273 u/gm powder See Instructions, apply to stump [...] Refills, Maintenance, 09/28/22 8:16:00 EST, Tablet, [facility]/pharmacy #[id number], Partial fill upon [...] in AM, 1 film sublingual in PM [id number], # 75 film, 1 Refills, Maintenance, 09/28/22 8:16:00 EST, [facility]/pharmacy #[id number], 1.5 films sublingual in AM, 1 film sublingual in PM ; [id number], 181.5, cm, 08/30/22 16:11:... Start Date: 1/13/23 Status: Ordered tamsulosin 0.4 mg oral capsule 0.4 mg, 1, capsule, By Mouth, Daily, # 90 capsule, Refills 3, Tot. Refills 3, Maintenance, 07/06/2111:55:00 EDT, Route to Pharmacy Electronically, [facility]/pharmacy #[id number], Partial fill upon patient request if the [...] Team Personnel Name: Alka Lee RN Position: [facility] RN Member Role: Primary Care Nurse Name: Jaleel Lo RN Position: [facility] RN Member Role: Primary Care Nurse Name: Ivy Smith RN Position: [facility] RN Member Role: Primary Care Nurse Name: Efra Mejia MD Position: [facility] Primary Care Physician Member Role: PCP Address: Address: [address] [place] [address] Name: Devorah Johnson RN Position: [facility] RN Member Role: Primary Care Nurse Name: Dustin Chavez RN Position: [facility] RN Member Role: Primary Care Nurse Name: Litzy Weinberg RN Position: [facility] RN Member Role: Primary Care Nurse Name: Melanie Garay Position: [facility] RN Member Role: Primary Care Nurse Name: Michelle Buckley Position: [facility] RN Member Role: Primary Care Nurse Name: Saundra Gonzalez Position: [facility] RN Member Role: Primary Care Nurse Name: Sofía Moreno RN Position: [facility] RN Member Role: Primary Care Nurse Name: Sary Tong RN Position: [facility] RN Member Role: Primary Care Nurse Name: Sophia Lomas RN Position: [facility] RN Member Role: Primary Care Nurse Name: Danielito Woo RN Position: [facility] Hospital Florist Manager Member Role: Primary Care Nurse Care Team Related Persons Name: ANGELOBEANTINY Address: home [address] [place] [id number] Name: FERNIE CUMMINS Address: [address] [place] [address] Name: TINY CUMMINS Address: [address] [place] [address]
--- OUTSIDE RECORDS SUMMARY | 2023-10-18 20:40 | XMS_ITS | Continuity of Care Document ---
Author Name Unknown Organization [facility] Address [address] [place] [address]- Care Team Providers Care Biscuit Machine Operator Name Role Phone Roberto CH, Efra Miramontes Primary Care Physician Encounter [facility] [place] Date(s): 09/14/22 - 10/14/22 [facility] [address] [place], [place] [address] Allergies, Adverse [...] vaccine 8 04/01/12 Given 1Result Comment: [facility]#[id number] 2Result Comment: [07/31/2018] [facility]# [id number] 3Result Comment: [08/26/2015] done at [facility] 4Admin Note: VIM 03/17/12 5Admin Note: VIM 04/10/11 6Admin Note: VIM 08/03/08 7Admin Note: VIS GIVEN 04/10/13 8Admin Note: vis given dated 06/21/09 Medications ARIPiprazole 5 mg oral tablet 5 mg, 1, tablet, By Mouth, Daily, # 90 tablet, Refills 1, Tot. Refills 1, Maintenance, 09/28/22 8:16:00 EST, Route to Pharmacy Electronically, [facility]/pharmacy #[id number], Partial fill upon patient request ifthe prescription is for a schedule II opioid drug.,... Start Date: 09/28/22 Stop Date: 03/27/23 Status: Ordered citalopram 40 mg oral tablet 40 mg, 1, tablet, By Mouth, Daily, Take with food., # 90 tablet, Refills 1, Tot. Refills 1, Maintenance, 09/28/22 8:16:00 EST, Route to Pharmacy Electronically, [facility]/pharmacy [facility][id number], 181.5, cm, 08/30/22 16:11:00 EST, Height, 105, kg, 09/26/21 3:23:00 ES... Start Date: 09/28/22 Stop Date: 03/27/23 Status: Ordered donepezil 10 mg oral tablet 10 mg, 1, tablet, By Mouth, Daily at bedtime, # 90 tablet, Refills 2, Tot. Refills 2, Maintenance, 10/11/22 12:01:00 EST, [facility] AM, 0 Refills, Maintenance, 07/14/21 14:22:00 EDT, [place], Partial fill upon patient request if the [...] 09/17/22 12:54:00 EST, Route to Pharmacy Electronically, [facility]/pharmacy #[id number], Partial fill upon patient request if the prescription is for a schedule II... Start Date: 09/17/22 Status: Ordered levothyroxine 0.112 mg oral tablet 2 tablet = 224 mcg, By Mouth, Daily, # 60 tablet, 2 Refills, Maintenance, 09/05/22 12:50:00 EST, Tablet, [facility]/pharmacy #[id number], 181.5, cm, 08/30/22 16:11:00 EST, Height, [...] Start Date: 07/13/21 Status: Ordered nystatin topical 362329 u/gm powder See Instructions, apply to stump [...] 0 Refills, Maintenance, 08/28/22 13:07:00 EST, ECCapsule, [facility]/pharmacy #[id number], 181.5, cm, 05/08/22 8:39:00 EDT, Height, 105, kg, 09/26/21 3:23:00 EST, Dry Weight Start Date: 08/28/22 Status: Ordered prazosin 2 mg oral capsule 2 capsule = 4 mg, By Mouth, Daily at bedtime, dose increase, # 180 capsule, 1 Refills, Maintenance,09/28/22 8:17:00 EST, Capsule, [facility]/pharmacy #[id number], Partial fill upon patient request if the prescription is for a schedule II opioid drug., 181.5, cm,... Start Date: 09/28/22 Stop Date: 03/27/23 Status: Ordered ramelteon 8 mg oral tablet 1 tablet = 8 mg, By Mouth, Daily at bedtime, # 90 tablet, 1 Refills, Maintenance, 09/28/22 8:16:00 EST, Tablet, [facility]/pharmacy #[id number], Partial fill upon patient request if the prescription is for a schedule II opioid drug., 181.5, cm, 08/30/22 16:11:00 E... Start Date: 09/28/22 Stop Date: 03/27/23 Status: Ordered Suboxone 8 mg-2 mg Sublingual Film See Instructions, 1.5 films sublingual in AM, 1 film sublingual in PM [id number], # 75 film, 1 Refills, Maintenance, 09/28/22 8:16:00 EST, [facility]/pharmacy #[id number], 1.5 films sublingual in AM, 1 film sublingual in PM ; [id number], 181.5, cm, 08/30/22 16:11:... Start Date: 09/28/22 [...] Team Personnel Name: Alka Lee RN Position: [facility] RN Member Role: Primary Care Nurse Name: Jaleel Lo RN Position: [facility] RN Member Role: Primary Care Nurse Name: Ivy Smith RN Position: [facility] RN Member Role: Primary Care Nurse Name: Efra Mejia MD Position: [facility] Primary Care Physician Member Role: PCP Address: Address: [address] [place] [address] Name: Devorah Johnson RN Position: [facility] RN Member Role: Primary Care Nurse Name: Dustin Chavez RN Position: [facility] RN Member Role: Primary Care Nurse Name: Litzy Weinberg RN Position: [facility] RN Member Role: Primary Care Nurse Name: Melanie Garay Position: [facility] RN Member Role: Primary Care Nurse Name: Yoselyn Patrick RN Position: [facility] RN Member Role: Primary Care Nurse Name: Michelle Buckley Position: [facility] RN Member Role: Primary Care Nurse Name: Saundra Gonzalez Position: [facility] RN Member Role: Primary Care Nurse Name: Sofía Moreno RN Position: [facility] RN Member Role: Primary Care Nurse Name: Sary Tong RN Position: [facility] RN Member Role: Primary Care Nurse Name: Sophia Lomas RN Position: [facility] RN Member Role: Primary Care Nurse Name: Danielito Woo RN Position: [facility] Processing Tech Member Role: Primary Care Nurse Care Team Related Persons Name: ANGELOBEANTINY Address: [address] [place], [place] Name: FERNIE CUMMINS Address: [address] [place], [place] Name: TINY CUMMINS Address: home [address] [facility] [address]
--- OUTSIDE RECORDS SUMMARY | 2023-10-18 20:40 | XMS_ITS | Continuity of Care Document ---
Author Name Unknown Organization [facility] em Address Unknown Care Team Providers Care Production Metal Sprayer Name Role Phone Efra Mejia MD Primary Care Physician [phone] [place] [facility] [place] Date(s): 10/26/22 - 11/25/22 [facility] Attending Physician: Bobby Sandoval Admitting Physician: Bobby [...] 04/01/12 Given 1Result Comment: [facility]#[id number] 2Result Comment: [07/31/2018] [facility]# [id number] 3Result Comment: [08/26/2015] [facility] 4Admin Note: VIM 03/17/12 5Admin Note: VIM 04/10/11 6Admin Note: VIM 08/03/08 7Admin Note: VIS GIVEN 04/10/13 8Admin Note: vis given dated 06/21/09 Medications ARIPiprazole 5 mg oral tablet 5 mg, 1, tablet, By Mouth, Daily, # 90 tablet, Refills 1, Tot. Refills 1, Maintenance, 09/28/22 8:16:00 EST, Route to Pharmacy Electronically, [facility]/pharmacy #[id number], Partial fill upon patient request ifthe prescription is for a schedule II opioid drug.,... Start Date: 09/28/22 Stop Date: 03/27/23 Status: Ordered citalopram 40 mg oral tablet 40 mg, 1, tablet, By Mouth, Daily, Take with food., # 90 tablet, Refills 1, Tot. Refills 1, Maintenance, 09/28/22 8:16:00 EST, Route to Pharmacy Electronically, [facility]/pharmacy #[id number], 181.5, cm, 08/30/22 16:11:00 EST, Height, 105, kg, 09/26/21 3:23:00 ES... Start Date: 09/28/22 Stop Date: 03/27/23 Status: Ordered donepezil 10 mg oral tablet 10 mg, 1, tablet, By Mouth, Daily at bedtime, # 90 tablet, Refills 2, Tot. Refills 2, Maintenance, 10/11/22 12:01:00 EST, Route to Pharmacy Electronically, [facility]/pharmacy [...] AM, 0 Refills, Maintenance, 07/14/21 14:22:00 EDT, [place], Partial fill upon patient request if the [...] 09/17/22 12:54:00 EST, Route to Pharmacy Electronically, [facility]/pharmacy #[id number], Partial fill upon patient request if the prescription is for a schedule II... Start Date: 09/17/22 Status: Ordered levothyroxine 0.112 mg oral tablet 2 tablet = 224 mcg, By Mouth, Daily, # 60 tablet, 2 Refills, Maintenance, 09/05/22 12:50:00 EST, Tablet, [facility]/pharmacy #[id number], 181.5, cm, 08/30/22 16:11:00 EST, [...] Start Date: 07/13/21 Status: Ordered nystatin topical 909721 u/gm powder See Instructions, apply to stump 3 x day, # 120 Gm, 5 Refills, Maintenance, 07/06/21 12:35:00 EDT, Powder, [facility]/pharmacy #[id number], Partial fill upon patient request if the prescription is for a schedule II opioid drug., apply to stump 3 x day, 180, cm,... Start Date: 07/06/21 Status: Ordered omeprazole 20 mg oral enteric coated capsule 1 capsule = 20 mg, By Mouth, Daily, # 30 capsule, 0 Refills, Maintenance, 08/28/22 13:07:00 EST, ECCapsule, [facility]/pharmacy #[id number], 181.5, cm, 05/08/22 8:39:00 EDT, [...] 1 Refills, Maintenance, 09/28/22 8:16:00 EST, Tablet, [facility]/pharmacy #0693, Partial fill upon [...] in AM, 1 film sublingual in PM [id number], # 75 film, 1 Refills, Maintenance, 09/28/22 8:16:00 EST, [id number], 1.5 films sublingual in AM, 1 film sublingual in PM ; [id number], 181.5, cm, 08/30/22 16:11:... Start Date: 09/28/22 Status: Ordered tamsulosin 0.4 mg oral capsule 0.4 mg, 1, capsule, By Mouth, Daily, # 90 capsule, Refills 3, Tot. Refills 3, Maintenance, 07/06/2111:55:00 EDT, Route to Pharmacy Electronically, [facility]/pharmacy #[id number], Partial fill upon patient request if the [...] Team Personnel Name: Alka Lee RN Position: [facility] RN Member Role: Primary Care Nurse Name: Jaleel Lo RN Position: [facility] RN Member Role: Primary Care Nurse Name: Ivy Smith RN Position: [facility] RN Member Role: Primary Care Nurse Name: Efra Mejia MD Position: [facility] Primary Care Physician Member Role: PCP Address: Address: [address] [place] [address] Name: Devorah Johnson RN Position: [facility] RN Member Role: Primary Care Nurse Name: Dustin Chavez RN Position: [facility] RN Member Role: Primary Care Nurse Name: Litzy Weinberg RN Position: [facility] RN Member Role: Primary Care Nurse Name: Melanie Garay Position: [facility] RN Member Role: Primary Care Nurse Name: Michelle Buckley Position: [facility] RN Member Role: Primary Care Nurse Name: Saundra Gonzalez Position: [facility] RN Member Role: Primary Care Nurse Name: Sofía Moreno RN Position: [facility] RN Member Role: Primary Care Nurse Name: Sary Tong RN Position: [facility] RN Member Role: Primary Care Nurse Name: Sophia Lomas RN Position: [facility] RN Member Role: Primary Care Nurse Name: Danielito Woo RN Position: [facility] Hospital Electric Welder Member Role: Primary Care Nurse Care Team Related Persons Name: ANGELO TINY Address: home [address] [place] [id number] Name: FERNIE CUMMINS Address: [address] [place] [address] Name: TINY CUMMINS Address: home [address] [place] [address]
--- OUTSIDE RECORDS SUMMARY | 2023-10-18 20:40 | XMS_ITS | Continuity of Care Document ---
Author Name Unknown Organization [facility] Address [address] [place] [address]- Care Team Providers Care Pipe Fitter Fire Sprinkler Systems Name Role Phone Efra Mejia MD Primary Care Physician [phone] Encounter [facility] Date(s): 11/26/19 - 12/03/19 [facility] [address] [place] [address]- [facility] Attending Physician: Efra Mejia MD Allergies, [...] acel(Tdap) 7 03/05/11 Given 1Result Comment: [07/31/2018] [facility]# [id number] 2Result Comment: [08/26/2015] done at [facility] 3Admin Note: VIM 03/17/12 4Admin Note: VIM 04/10/11 5Admin Note: VIS GIVEN 04/10/13 6Admin Note: vis given dated 06/21/09 7Admin Note: VIM 08/03/08 Medications albuterol CFC free 90 mcg/inh inhalation aerosol 1, puffs, Inhalation, 4 times a day, PRN, # 18 Gm, Refills 0, Tot. Refills 0, Maintenance, 12/02/2009:56:00 EDT, Aerosol, Route to Pharmacy Electronically, [id number], [facility]/pharmacy #2339, 180.3, [...] Maintenance, 11/12/19 10:02:00 EST, Gel, [facility]/pharmacy #[id number], 180.3, cm, 11/12/19 8:43:00 [...] Maintenance, 07/02/16 16:06:12, Route to Pharmacy Electronically, [id number], [facility] #[facility] Start Date: [...] Maintenance, 10/22/19 10:55:00 EST, Tablet, [facility]/pharmacy #2339, 180.3, cm, 10/22/19 10:14:00 EST, Height, 118.5, kg, 05/12/19 10:33:00 EDT, Dry Weight Start Date: 10/22/19 Status: Ordered ibuprofen 800 mg oral tablet 800 mg, 1, tablet, By Mouth, Every 8 hours, PRN, # 90 tablet, Refills 0, Tot. Refills 0, Maintenance, as needed for pain, 04/10/19 17:13:55 EDT, Route to Pharmacy Electronically, [id number], [facility] #[facility] Start Date: [...] 5 Refills, Maintenance, 12/03/19 10:59:00 EDT, Solution, [facility]/pharmacy #2339, 180.3, [...] 01/20/18 13:36:03 EDT, Route to Pharmacy Electronically, [id number], [facility] #[facility] Start Date: [...] Pharmacy Electronically, [facility]/pharmacy #2339, 180.3, [...] Weight Start Date: 08/27/19 Status: Ordered Pen Standard, 29 G x 12.7 mm BD Ultra [...]
--- OUTSIDE RECORDS SUMMARY | 2023-10-18 20:40 | XMS_ITS | Continuity of Care Document ---
Author Name Unknown Organization [facility] Address [address] [place] [address]- Care Team Providers Care Distribution Estimator Name Role Phone Efra Mejia MD Primary Care Physician Encounter [facility] [place] Date(s): 01/19/20 - 01/26/20 [facility] [address] [place] [address]- [place] Encounter Diagnosis Diabetic nephropathy(Discharge Diagnosis) - 01/19/20 Osteoarthritis of right glenohumeral joint(Discharge Diagnosis) - 01/19/20 Hypothyroidism(Discharge Diagnosis) - 01/19/20 Attending Physician: Efra Mejia MD Allergies, Adverse [...] 03/05/11 Given 1Result Comment: [07/31/2018] [facility]# [id number] 2Result Comment: [08/26/2015] [facility] [...] 12/02/2009:56:00 EDT, Aerosol, Route to Pharmacy Electronically, [id number], [facility]/pharmacy #2339, 180.3, cm, 11/12/19 [...] Maintenance, 07/02/16 16:06:12, Route to Pharmacy Electronically, [id number], [facility] Start Date: [...] 04/10/19 17:13:55 EDT, Route to Pharmacy Electronically, [id number], [facility] Start Date: [...] 01/20/18 13:36:03 EDT, Route to Pharmacy Electronically, [id number], [facility] Start Date: [...] Weight Start Date: 08/27/19 Status: Ordered Pen Macy, 29 G x 12.7 mm BD Ultra [...] Clinical Service Informant Diabetic nephropathy Discharge Diagnosis 01/19/20 Osteoarthritis of right glenohumeral joint Discharge Diagnosis 01/19/20 Hypothyroidism Discharge Diagnosis 01/19/20 Vital Signs Most recent to oldest [Reference Range]: 1 Height 180.3 cm (01/19/20 2:07 PM) Social History Social History Type Response Tobacco Other: 3 cigars brenden y. Sex Male
--- OUTSIDE RECORDS SUMMARY | 2023-10-18 20:40 | XMS_ITS | Continuity of Care Document ---
Author Name Unknown Organization [facility] Address [address] [place] [address]- Care Team Providers Care Pocket Assembler Name Role Phone Efra Mejia MD Primary Care Physician [phone] Encounter [facility] Date(s): 09/06/20 - 10/06/20 [facility] [address] [place] [address]- Allergies, Adverse Reactions, Alerts Substance Reaction Severity [...] 7 03/05/11 Given 1Result Comment: [07/31/2018] [facility]# [id number] 2Result Comment: [08/26/2015] done at [facility] 3Admin Note: VIM 03/17/12 4Admin Note: VIM 04/10/11 5Admin Note: VIS GIVEN 04/10/13 6Admin Note: vis given dated 06/21/09 7Admin Note: VIM 08/03/08 Medications albuterol CFC free 90 mcg/inh inhalation aerosol 1, puffs, Inhalation, 4 times a day, PRN, # 18 Gm, Refills 0, Tot. Refills 0, Maintenance, 12/02/2009:56:00 EDT, Aerosol, Route to Pharmacy Electronically, [id number], [facility]/pharmacy #2339, 180.3, cm, 11/12/19 [...] Maintenance, 07/02/16 16:06:12, Route to Pharmacy Electronically, [id number], [facility] Start Date: [...] Refills, Maintenance, 06/21/20 14:32:00 EDT, REC Powder, [facility]/pharmacy #0693, 17 [...] 5 Refills, Maintenance, 05/26/20 17:50:00 EDT, ECCapsule, [facility]/pharmacy #0693, 180.3, cm, 05/06/20 16:07:00 EDT, Height, 120.7, kg, 11/03/19 13:31:00EST, Dry Weight Start Date: 05/26/20 Status: Ordered Pen [employer], 29 G x 12.7 mm BD Ultra Fine See Instructions, # 1 box, Refills 3, Tot. Refills 3, Maintenance, use with NOvolog Pen injection twice daily, 06/18/19 9:42:43 EDT, Compound Start Date: 06/18/19 Status: Ordered tamsulosin 0.4 mg oral capsule 0.4 mg, 1, capsule, By Mouth, Daily, # 30 capsule, Refills 11, Tot. Refills 11, Maintenance, 07/05/20 16:10:00 EDT, Route to Pharmacy Electronically, [facility]/pharmacy #[id number], 180.3, cm, 06/21/20 13:42:00 EDT, Height, 120.7, kg, 11/03/19 13:31:00 EST, Dry W... Start Date: 07/05/20 Status: Ordered Tylenol 325 mg oral tablet 650 mg, 2, tablet, By Mouth, Every 4 hours, PRN, # 90 tablet, Refills 0, Tot. Refills 0, Acute 11/04/20 13:07:00 EST, Pain , Mild, 09/26/20 13:07:00 EST, Route to Pharmacy Electronically, [facility], Partial fill upon patient [...]
--- OUTSIDE RECORDS SUMMARY | 2023-10-18 20:40 | XMS_ITS | Continuity of Care Document ---
Author Name Unknown Organization [facility] Address [address] [place] [address]- Care Team Providers Care Childcare Aide Name Role Phone Efra Mejia MD Primary Care Physician [place] [facility] Date(s): 08/04/23 - 09/03/23 [facility] [address] [place] [address]- Allergies, Adverse Reactions, Alerts No Known Allergies [...] inactivated 5 08/16/11 Gi raheem SARS-CoV-2 mRNA ([id number]) vax 04/27/22 Recorded zoster vaccine, inactivated 06/11/21 Recorded SARS-CoV-2 (COVID-19) mRNA BNT-162b2 vac 06/11/21 Recorded SARS-CoV-2 (COVID-19) mRNA BNT-162b2 vac 12/04/20 Recorded SARS-CoV-2 (COVID-19) mRNA BNT-162b2 vac 11/13/20 Recorded tetanus/diphtheria/pertussis, acel(Tdap) 05/07/21 Given tetanus/diphtheria/pertussis, acel(Tdap) 6 03/05/11 Given Influenza Virus Vaccine (oldterm) 06/08/19 Recorde d Fluarix (oldterm) 7 08/19/13 Given pneumococcal 23-valent vaccine 8 04/01/12 Given 1Result Comment: [facility]#[id number] 2Result Comment: [07/31/2018] [facility]# [id number] 3Result Comment: [08/26/2015] done at [facility] 4Admin Note: VIM 03/17/12 5Admin Note: VIM 04/10/11 6Admin Note: VIM 08/03/08 7Admin Note: VIS GIVEN 04/10/13 8Admin Note: vis given dated 06/21/09 Medications ARIPiprazole 5 mg oral tablet 5 mg, 1, tablet, By Mouth, Daily, # 90 tablet, Refills 1, Tot. Refills 1, Maintenance, 03/01/23 10:12:00 EDT, Route to Pharmacy Electronically, [facility]/pharmacy #0693, Partial fill upon patient request if [...] 06/25/23 10:14:00 EDT, Route to Pharmacy Electronically, [facility]/pharmacy #0693, 181.5, cm, 06/06/23 16:27:00 EDT, Height, 103, kg, 10/26/22 11:39:00... Start Date: 06/25/23 Stop Date: 12/22/23 Status: Ordered donepezil 10 mg oral tablet 1, tablet, By Mouth, Daily at bedtime, # 90 tablet, Refills 2, Maintenance, 07/26/23 16:19:00 EST, Route to Pharmacy Electronically, [id number], 181.5, cm, 07/11/23 11:00:00 EDT, Height, 103, kg, 10/26/22 11:39:00 EST, Dry Weight Start Date: 07/26/23 Status: Ordered famotidine 40 mg oral tablet 1 tablet = 40 mg, By Mouth, Daily at bedtime, # 30 tablet, 2 Refills, Maintenance, 08/21/23 14:50:00 EST, Tablet, [facility]/pharmacy #0693, Partial fill upon patient request if [...] Gm, 0 Refills, Maintenance, 07/11/23 13:02:00 EDT, [place], [facility]/pharmacy #0693, Partial fill upon patient request if the prescription is for a schedule II opioid drug., 2 sprays Nares, Both Daily, 181.5, cm, 07/11/23 1... Start Date: 07/11/23 Status: Ordered fluticasone 50 mcg/inh nasal spray 2 sprays, Nares, Both, Daily in AM, 0 Refills, Maintenance, 07/14/21 14:22:00 EDT, [place], Partial fill upon patient request if the [...] 03/27/23 17:30:00 EDT, Route to Pharmacy Electronically, [facility]/pharmacy #0693, override needed for lost prescription, thanks., 181.5, cm, 03/07/23 10:11:0... Start Date: 03/27/23 Status: Ordered levothyroxine 0.2 mg oral tablet 1 tablet = 200 mcg, By Mouth, Daily, # 30 tablet, 5 Refills, Maintenance, 07/14/23 18:02:00 EDT, Tablet, [facility]/pharmacy #0693, dose reduction, 181.5, cm, 07/11/23 11:00:00 [...] Start Date: 07/13/21 Status: Ordered nystatin topical 398457 u/gm powder See Instructions, apply to stump 3 x day, # 120 Gm, 5 Refills, Maintenance, 04/23/23 15:43:00 EDT, Powder, [facility]/pharmacy #0693, Partial fill upon patient request if the prescription is for a schedule II opioid drug., apply to stump 3 x day, 181.5, cm... Start Date: 04/23/23 Status: Ordered nystatin topical 181719 u/gm powder See Instructions, apply to stump 3 x day, # 120 Gm, 5 Refills, Maintenance, 07/06/21 12:35:00 EDT, Powder, [facility]/pharmacy #0693, Partial fill upon patient request if [...] Refills, Maintenance, 08/30/23 7:19:00 EST, [facility], [id number], 1.5 films sublingual in AM, 1 film sublingual in PM, 181.5, cm, 07/11/23 11:00:00 EDT, [place]... Start Date: 08/30/23 Status: Ordered tamsulosin 0.4 mg oral capsule 0.4 mg, 1, capsule, By Mouth, Daily, # 90 capsule, Refills 3, Tot. Refills 3, Maintenance, 12/20/2315:00:00 EDT, Route to Pharmacy Electronically, [facility]/pharmacy #0684, Partial fill upon patient request if the [...] Team Personnel Name: Cayla Herrera RN Position: [facility] ED RN W/OE and Tasks Member Role: Primary Care Nurse Name: Alka Lee RN Position: [facility] RN Member Role: Primary Care Nurse Name: Jaleel Lo RN Position: [facility] RN Member Role: Primary Care Nurse Name: Ivy Smith RN Position: [facility] RN Member Role: Primary Care Nurse Name: Efra Mejia MD Position: [facility] Physician - Primary Care Member Role: PCP Address: Address: [address] [place] [address] Name: Devorah Johnson RN Position: [facility] SN RN Member Role: Primary Care Nurse Name: Dustin Chavez RN Position: [facility] RN Member Role: Primary Care Nurse Name: Litzy Weinberg RN Position: [facility] RN Member Role: Primary Care Nurse Name: Melanie Garay Position: [facility] RN Member Role: Primary Care Nurse Name: Yoselyn Patrick RN Position: [facility] RN Member Role: Primary Care Nurse Name: Michelle Akbar [place] Position: [facility] RN Member Role: Primary Care Nurse Name: Saundra Gonzalez Position: [facility] RN Member Role: Primary Care Nurse Name: Sofía Moreno RN Position: [facility] RN Member Role: Primary Care Nurse Name: Sary Tong RN Position: [facility] RN Member Role: Primary Care Nurse Name: Danielito Woo RN Position: [facility] Hospital Preschool Assistant Teacher Member Role: Primary Care Nurse Care Team Related Persons Name: TINY STEPHENS Address: home [address] [place] [address] Name: FERNIE CUMMINS Address: [address] [place] [address] Name: TINY CUMMINS Address: home [address] [place] [address]
--- OUTSIDE RECORDS SUMMARY | 2023-10-18 20:40 | XMS_ITS | Continuity of Care Document ---
Author Name Unknown Organization [facility] Address [address] [place] [address]- Care Team Providers Care Attendant Lodging Facilities Name Role Phone Efra Mejia MD Primary Care Physician [phone] Encounter [facility] Date(s): 04/06/20 - 05/06/20 [facility] [address] [place] [address]- [facility] Allergies, Adverse Reactions, Alerts Substance Reaction [...] 1Result Comment: [07/31/2018] [facility]# [id number] 2Result Comment: [08/26/2015] done at [facility] [...] 12/02/2009:56:00 EDT, Aerosol, Route to Pharmacy Electronically, [id number], [facility]/pharmacy #[id number], 180.3, cm, 11/12/19 15:07:00 [...] 1 Refills, Maintenance, 11/12/19 10:02:00 EST, Gel, [facility]/pharmacy #[id number], 180.3, cm, 11/12/19 8:43:00 EST, [...] Maintenance, 07/02/16 16:06:12, Route to Pharmacy Electronically, [id number], [facility] Start Date: [...] 5 Refills, Maintenance, 10/22/19 10:55:00 EST, Tablet, [facility]/pharmacy #[id number], 180.3, cm, 10/22/19 10:14:00 EST, Height, 118.5, kg, 05/12/19 10:33:00 EDT, Dry Weight Start Date: 10/22/19 Status: Ordered ibuprofen 800 mg oral tablet 800 mg, 1, tablet, By Mouth, Every 8 hours, PRN, # 90 tablet, Refills 0, Tot. Refills 0, Maintenance, as needed for pain, 04/10/19 17:13:55 EDT, Route to Pharmacy Electronically, [id number], [facility] #[facility] Start Date: [...] 5 Refills, Maintenance, 01/19/20 15:07:00 EDT, Solution, [facility]/pharmacy #[id number], 180.3, cm, 01/19/20 14:07:00 EDT, [...] 01/20/18 13:36:03 EDT, Route to Pharmacy Electronically, [id number], [facility] Start Date: 01/20/18 Stop Date: 01/15/19 Status: Ordered Mavyret By Mouth, Daily, 0 Refills, Maintenance, 05/04/20 11:57:00 EDT Start Date: 05/04/20 Status: Ordered Mavyret 100 mg-40 mg oral tablet 3 tablet, By Mouth, Daily, x 8 weeks, # 84 tablet, 1 Refills, Maintenance, 02/05/20 14:18:00 EDT, Tablet, [facility], 3 tablet By Mouth [...] Weight Start Date: 08/27/19 Status: Ordered Pen [place], 29 G x 12.7 mm BD Ultra [...]
--- OUTSIDE RECORDS SUMMARY | 2023-10-18 20:40 | XMS_ITS | Continuity of Care Document ---
Author Name Unknown Organization [facility] Address [address] [place] [address]- Care Team Providers Care Iron Worker Foreman Name Role Phone Roberto CH, Efra Miramontes Primary Care Physician [phone] Encounter [facility] [place] Date(s): 10/05/21 - 11/04/21 [facility] [address] [place] [address]- Attending Physician: Bobby Sandoval Admitting Physician: AdmBobby [...] 23-valent vaccine 8 04/01/12 Given 1Result Comment: [facility]#[id number] 2Result Comment: [07/31/2018] [facility]# [id number] 3Result Comment: [08/26/2015] done at [facility] 4Admin Note: VIM 03/17/12 5Admin Note: VIM 04/10/11 6Admin Note: VIM 08/03/08 7Admin Note: VIS GIVEN 04/10/13 8Admin Note: vis given dated 06/21/09 Medications donepezil 5 mg oral tablet 5 mg, 1, tablet, By Mouth, Daily, # 30 tablet, Refills 5, Tot. Refills 5, Maintenance, 06/02/21 14:20:00 EDT, Route to Pharmacy Electronically, [facility]/pharmacy #[id number], Partial fill upon patient [...] AM, 0 Refills, Maintenance, 07/14/21 14:22:00 EDT, [place], Partial fill upon patient request if the [...] 08/31/21 11:39:00 EST, Route to Pharmacy Electronically, [facility]/pharmacy #[id number], Partial fill upon patient request if the prescription is for a schedule II... Start Date: 08/31/21 Status: Ordered Iodosorb 0.9% topical gel See Instructions, Continue wound care with iodosorb gel and 2x2 dressing daily to small wound Betadine pain to incision, # 1 each, 0 Refills, Maintenance, 09/28/21 18:43:00 EST, [facility]/pharmacy #[id number], Partial fill upon patient [...] Start Date: 07/13/21 Status: Ordered nystatin topical 594201 u/gm powder See Instructions, apply to stump 3 x day, # 120 Gm, 5 Refills, Maintenance, 07/06/21 12:35:00 EDT, Powder, [facility]/pharmacy #[id number], Partial fill upon patient [...] Maintenance, 07/06/2111:55:00 EDT, Route to Pharmacy Electronically, [facility]/pharmacy #[id number], Partial fill upon patient request if the prescription is for a schedule II opioid d... Start Date: 07/06/21 Status: Ordered Trulicity Pen 0.75 mg/0.5 mL subcutaneous solution 0.5 mL = 0.75 mg, Subcutaneous Injection, Every week, rotate injection sites, # 2 mL, 5 Refills, Maintenance, 10/05/21 11:20:00 EST, Solution, [facility]/pharmacy #[id number], Partial fill upon patient [...]
--- OUTSIDE RECORDS SUMMARY | 2023-10-18 20:40 | XMS_ITS | Continuity of Care Document ---
Author Name Unknown Organization [facility] Address [address] [place] [address]- Care Team Providers Care Rn Lvn Name Role Phone Roberto CH, Efra Miramontes Primary Care Physician Encounter [facility] Date(s): 08/29/22 - 09/28/22 [facility] [address] [place], [place] [address] Allergies, Adverse Reactions, Alerts No [...] vaccine 8 04/01/12 Given 1Result Comment: [facility]#[id number] 2Result Comment: [07/31/2018] [facility]# [id number] 3Result Comment: [08/26/2015] done at [facility] 4Admin Note: VIM 03/17/12 5Admin Note: VIM 04/10/11 6Admin Note: VIM 08/03/08 7Admin Note: VIS GIVEN 04/10/13 8Admin Note: vis given dated 06/21/09 Medications ARIPiprazole 5 mg oral tablet 5 mg, 1, tablet, By Mouth, Daily, # 90 tablet, Refills 1, Tot. Refills 1, Maintenance, 09/28/22 8:16:00 EST, Route to Pharmacy Electronically, [facility]/pharmacy #[id number], Partial fill upon patient request ifthe prescription is for a schedule II opioid drug.,... Start Date: 09/28/22 Stop Date: 03/27/23 Status: Ordered citalopram 40 mg oral tablet 40 mg, 1, tablet, By Mouth, Daily, Take with food., # 90 tablet, Refills 1, Tot. Refills 1, Maintenance, 09/28/22 8:16:00 EST, Route to Pharmacy Electronically, [facility]/pharmacy #[id number], 181.5, cm, 08/30/22 16:11:00 EST, Height, 105, kg, 09/26/21 3:23:00 ES... Start Date: 09/28/22 Stop Date: 03/27/23 Status: Ordered donepezil 10 mg oral tablet 10 mg, 1, tablet, By Mouth, Daily at bedtime, # 90 tablet, Refills 1, Tot. Refills 1, Maintenance, 05/08/22 9:47:00 EDT, Route to Pharmacy Electronically, [facility]/pharmacy #[id number], Partial fill upon patient [...] AM, 0 Refills, Maintenance, 07/14/21 14:22:00 EDT, [place], Partial fill upon patient request if the [...] 09/17/22 12:54:00 EST, Route to Pharmacy Electronically, [facility]/pharmacy #[id number], Partial fill upon patient request if the prescription is for a schedule II... Start Date: 09/17/22 Status: Ordered levothyroxine 0.112 mg oral tablet 2 tablet = 224 mcg, By Mouth, Daily, # 60 tablet, 2 Refills, Maintenance, 09/05/22 12:50:00 EST, Tablet, [facility]/pharmacy #[id number], 181.5, cm, 08/30/22 16:11:00 EST, Height, [...] Start Date: 07/13/21 Status: Ordered nystatin topical 359131 u/gm powder See Instructions, apply to stump 3 x day, # 120 Gm, 5 Refills, Maintenance, 07/06/21 12:35:00 EDT, Powder, [facility]/pharmacy #[id number], Partial fill upon patient request if the prescription is for a schedule II opioid drug., apply to stump 3 x day, 180, cm,... Start Date: 07/06/21 Status: Ordered omeprazole 20 mg oral enteric coated capsule 1 capsule = 20 mg, By Mouth, Daily, # 30 capsule, 0 Refills, Maintenance, 08/28/22 13:07:00 EST, ECCapsule, [facility]/pharmacy #[id number], 181.5, cm, 05/08/22 8:39:00 EDT, Height, 105, kg, 09/26/21 3:23:00 EST, Dry Weight Start Date: 08/28/22 Status: Ordered prazosin 2 mg oral capsule 2 capsule = 4 mg, By Mouth, Daily at bedtime, dose increase, # 180 capsule, 1 Refills, Maintenance,09/28/22 8:17:00 EST, Capsule, [facility]/pharmacy #[id number], Partial fill upon patient request if the prescription is for a schedule II opioid drug., 181.5, cm,... Start Date: 09/28/22 Stop Date: 03/27/23 Status: Ordered ramelteon 8 mg oral tablet 1 tablet = 8 mg, By Mouth, Daily at bedtime, # 90 tablet, 1 Refills, Maintenance, 09/28/22 8:16:00 EST, Tablet, [facility]/pharmacy #[id number], Partial fill upon patient request if the prescription is for a schedule II opioid drug., 181.5, cm, 08/30/22 16:11:00 E... Start Date: 09/28/22 Stop Date: 03/27/23 Status: Ordered Suboxone 8 mg-2 mg Sublingual Film See Instructions, 1.5 films sublingual in AM, 1 film sublingual in PM [id number], # 75 film, 1 Refills, Maintenance, 09/28/22 8:16:00 EST, [facility]/pharmacy #[id number], 1.5 films sublingual in AM, 1 film sublingual in PM ; [id number], 181.5, cm, 08/30/22 16:11:... Start Date: 09/28/22 Status: Ordered tamsulosin 0.4 mg oral capsule 0.4 mg, 1, capsule, By Mouth, Daily, # 90 capsule, Refills 3, Tot. Refills 3, Maintenance, 07/06/2111:55:00 EDT, Route to Pharmacy Electronically, [facility]/pharmacy #[id number], Partial fill upon patient [...] Team Personnel Name: Alka Lee RN Position: [facility] RN Member Role: Primary Care Nurse Name: Jaleel Lo RN Position: [facility] RN Member Role: Primary Care Nurse Name: Ivy Smith RN Position: [facility] RN Member Role: Primary Care Nurse Name: Efra Mejia MD Position: [facility] Primary Care Physician Member Role: PCP Address: Address: [address] [place] [address] Name: Devorah Johnson RN Position: [facility] RN Member Role: Primary Care Nurse Name: Dustin Chavez RN Position: [facility] RN Member Role: Primary Care Nurse Name: Litzy Weinberg RN Position: [facility] RN Member Role: Primary Care Nurse Name: Melanie Garay Position: [facility] RN Member Role: Primary Care Nurse Name: Yoselyn Patrick RN Position: [facility] RN Member Role: Primary Care Nurse Name: Michelle Buckley Position: [facility] RN Member Role: Primary Care Nurse Name: Saundra Gonzalez Position: [facility] RN Member Role: Primary Care Nurse Name: Sofía Moreno RN Position: [facility] RN Member Role: Primary Care Nurse Name: Sary Tong RN Position: [facility] RN Member Role: Primary Care Nurse Name: Sophia Lomas RN Position: [facility] RN Member Role: Primary Care Nurse Name: Danielito Woo RN Position: [facility] Oracle Database Manager Member Role: Primary Care Nurse Care Team Related Persons Name: ANGELOTINY Address: home [address] [place] [address] Name: FERNIE CUMMINS Address: [address] [place], [place] Name: TINY CUMMINS Address: home [address] [place] [address]
--- OUTSIDE RECORDS SUMMARY | 2023-10-18 20:40 | XMS_ITS | Continuity of Care Document ---
Author Name Unknown Organization [facility] Address [address] [place] [address]- Care Team Providers Care Emery Wheel Molder Name Role Phone Roberto CH, Efra Miramontes Primary Care Physician Encounter [facility] Date(s): 11/03/20 - 12/03/20 [facility] [address] [place] [address]- Allergies, Adverse Reactions, Alerts Substance Reaction Severity [...] 7 03/05/11 Given 1Result Comment: [07/31/2018] [facility]# [id number] 2Result Comment: [08/26/2015] done at [facility] 3Admin Note: VIM 03/17/12 4Admin Note: VIM 04/10/11 5Admin Note: VIS GIVEN 04/10/13 6Admin Note: vis given dated 06/21/09 7Admin Note: VIM 08/03/08 Medications albuterol CFC free 90 mcg/inh inhalation aerosol 1, puffs, Inhalation, 4 times a day, PRN, # 18 Gm, Refills 0, Tot. Refills 0, Maintenance, 12/02/2009:56:00 EDT, Aerosol, Route to Pharmacy Electronically, [id number], [facility]/pharmacy #[id number], 180.3, cm, [...] Maintenance, 07/02/16 16:06:12, Route to Pharmacy Electronically, [id number], [facility] #[facility] Start Date: [...] 10/27/20 10:24:00 EST, Route to Pharmacy Electronically, [facility]/pharmacy #[id number], Partial fill upon patient request [...] 5 Refills, Maintenance, 10/27/20 10:22:00 EST, Solution, [facility]/pharmacy #[id number], 183, cm, 10/27/20 8:41:00 EST, Height, 119, kg, 09/23/20 17:06:00 EST, Dry Weight Start Date: 10/27/20 Status: Ordered levothyroxine 0.112 mg oral tablet 2 tablet = 224 mcg, By Mouth, Daily, # 60 tablet, 5 Refills, Maintenance, 10/27/20 10:22:00 EST, Tablet, [facility]/pharmacy #[id number], 183, cm, 10/27/20 8:41:00 EST, Height, 119, kg, 09/23/20 17:06:00 EST, DryWeight Start Date: 10/27/20 Stop Date: 04/25/21 Status: Ordered lisinopril 20 mg oral tablet 40 mg, 2, tablet, By Mouth, Daily, # 60 tablet, Refills 5, Tot. Refills 5, Maintenance, 10/27/20 10:22:00 EST, [id number], Partial fill upon patient request if the prescription is for a schedule II opioid drug... Start Date: 10/27/20 Status: Ordered MiraLax oral powder for reconstitution = 17 Gm, By Mouth, Daily, dissolve in water before taking, # 527 Gm, 5 Refills, Maintenance, 10/27/20 10:23:00 EST, REC Powder, [facility]/pharmacy #[id number], 17 Gm By Mouth Daily,Instr:dissolve in water beforetaking, 183, cm, 10/27/20 8:41:00 EST, Height, 119,... Start Date: 10/27/20 Status: Ordered omeprazole 20 mg oral enteric coated capsule 1 capsule = 20 mg, By Mouth, Daily, # 30 capsule, 5 Refills, Maintenance, 10/27/20 10:22:00 EST, ECCapsule, [facility]/pharmacy #[id number], 183, cm, 10/27/20 8:41:00 EST, Height, 119, kg, 09/23/20 17:06:00 EST,Dry Weight Start Date: 10/27/20 Status: Ordered Pen [place], 29 G x 12.7 mm BD Ultra Fine See Instructions, # 1 box, Refills 3, Tot. Refills 3, Maintenance, use with NOvolog Pen injection twice daily, 06/18/19 9:42:43 EDT, Compound Start Date: 06/18/19 Status: Ordered tamsulosin 0.4 mg oral capsule 0.4 mg, 1, capsule, By Mouth, Daily, # 30 capsule, Refills 11, Tot. Refills 11, Maintenance, 10/27/20 10:23:00 EST, Route to Pharmacy Electronically, [facility]/pharmacy #[id number], 183, cm, 10/27/20 8:41:00 EST, [...]
--- OUTSIDE RECORDS SUMMARY | 2023-10-18 20:40 | XMS_ITS | Continuity of Care Document ---
Author Name Unknown Organization [facility] Address [address] [place] [id number]- Care Team Providers Care Consumer Affairs Specialist Name Role Phone Roberto CH, Efra Miramontes Primary Care Physician [id number] Date(s): 06/10/23 - 07/12/[facility] [address] [place] [id number] Attending Physician: Roque BELL, Leticia Muñoz Admitting Physician: Roque BELL, Leticia Muñoz Allergies, Adverse Reactions, Alerts No Known Allergies [...] inactivated 5 08/16/11 Gi raheem SARS-CoV-2 mRNA (nhamueh-rymx-haned) vax 04/27/22 Recorded zoster vaccine, inactivated 06/11/21 Recorded SARS-CoV-2 (COVID-19) mRNA BNT-162b2 vac 06/11/21 Recorded SARS-CoV-2 (COVID-19) mRNA BNT-162b2 vac 12/04/20 Recorded SARS-CoV-2 (COVID-19) mRNA BNT-162b2 vac 11/13/20 Recorded tetanus/diphtheria/pertussis, acel(Tdap) 05/07/21 Given tetanus/diphtheria/pertussis, acel(Tdap) 6 6/20/11 Given Influenza Virus Vaccine (oldterm) 06/08/19 Recorde d Fluarix (oldterm) 7 08/19/13 Given pneumococcal 23-valent vaccine 8 04/01/12 Given 1Result Comment: [facility]#[id number] 2Result Comment: [07/31/2018] [facility]# [phone] 3Result Comment: [08/26/2015] [facility] 4Admin Note: VIM 03/17/12 5Admin [...] 08/03/23 9:00:00 EST, 07/03/23 11:29:00 EDT, Cream, [facility]/pharmacy #[id number], Partial [...] Gm, 0 Refills, Maintenance, 07/11/23 13:02:00 EDT, [place], [facility]/pharmacy #[id number], Partial fill upon patient request if the prescription is for a schedule II opioid drug., 2 sprays Nares, Both Daily, 181.5, cm, 07/11/23 1... Start Date: 07/11/23 Status: Ordered fluticasone 50 mcg/inh nasal spray 2 sprays, Nares, Both, Daily in AM, 0 Refills, Maintenance, 07/14/21 14:22:00 EDT, [place], Partial fill upon patient request if the [...] 0 Refills, Maintenance, 08/09/23 12:54:00 EST, Tablet, [facility]/pharmacy [...] Start Date: 07/13/21 Status: Ordered nystatin topical 791264 u/gm powder See Instructions, apply to stump 3 x day, # 120 Gm, 5 Refills, Maintenance, 04/23/23 15:43:00 EDT, Powder, [facility]/pharmacy #[id number], Partial fill upon patient request if the prescription is for a schedule II opioid drug., apply to stump 3 x day, 181.5, cm... Start Date: 04/23/23 Status: Ordered nystatin topical 749261 u/gm powder See Instructions, apply to stump [...] EDT, [facility]/pharmacy #[id number], [id number], 1.5 films sublingual in AM, 1 film [...] 07/25/23 12:57:00 EST, 07/11/23 12:57:00 EDT, Cream, [facility]/pharmacy #[id number], Partial fill upon patient request if... [...] Team Personnel Name: Cayla Herrera RN Position: [facility] ED RN W/OE and Tasks Member Role: Primary Care Nurse Name: Alka Lee RN Position: [facility] RN Member Role: Primary Care Nurse Name: Jaleel Lo RN Position: [facility] RN Member Role: Primary Care Nurse Name: Ivy Smith RN Position: [facility] RN Member Role: Primary Care Nurse Name: Efra Mejia MD Position: [facility] Physician - Primary Care Member Role: PCP Address: Address: [address] [place] [address] Name: Devorah Johnson RN Position: [facility] RN Member Role: Primary Care Nurse Name: Dustin Chavez RN Position: [facility] RN Member Role: Primary Care Nurse Name: Litzy Weinberg RN Position: [facility] RN Member Role: Primary Care Nurse Name: Melanie Garay Position: [facility] RN Member Role: Primary Care Nurse Name: Yoselyn Patrick RN Position: [facility] RN Member Role: Primary Care Nurse Name: Michelle Akbar [place] Position: [facility] RN Member Role: Primary Care Nurse Name: Saundra Gonzalez Position: [facility] RN Member Role: Primary Care Nurse Name: Sofía Moreno RN Position: [facility] RN Member Role: Primary Care Nurse Name: Sary Tong RN Position: [facility] RN Member Role: Primary Care Nurse Name: Danielito Woo RN Position: [facility] Stripper Apprentice Member Role: Primary Care Nurse Care Team Related Persons Name: TINY STEPHENS Address: [address] [place] [address] Name: FERNIE CUMMINS Address: [address] [place] [address] Name: TINY CUMMINS Address: home [address] [place] [address]
--- OUTSIDE RECORDS SUMMARY | 2023-10-18 20:40 | XMS_ITS | Continuity of Care Document ---
Author Name Unknown Organization [facility] ter Address [address] [place] [address]- Care Team Providers Care Electronic Funds Transfer Coordinator Name Role Phone Roberto CH, Efra Miramontes Primary Care Physician [phone] Encounter [facility] Date(s): 07/08/20 - 07/10/[address] [address]- [facility] Encounter Diagnosis Hypothyroid(Final) - 07/09/20 Discharge Disposition: A-D/C Home Attending Physician: Johnny Victoria MD Admitting Physician: David Garcia MD Referring Physician: Not on Staff, Referring [...] Comment: [07/31/2018] [facility]# [id number] 2Result Comment: [08/26/2015] done at [facility] [...] 12/02/2009:56:00 EDT, Aerosol, Route to Pharmacy Electronically, [id number], [facility]/pharmacy #[id number], 180.3, cm, 11/12/19 [...] Maintenance, 07/02/16 16:06:12, Route to Pharmacy Electronically, [id number], [facility] #[id number] Start Date: [...] 05/31/20 14:57:00 EDT, Route to Pharmacy Electronically, [facility]/pharmacy #[id number], 180.3, cm, 05/31/20 14:08:00 EDT, Height, 120.7, kg, 11/03/19 13:31:00 EST,... Start Date: 05/31/20 Status: Ordered Insulin Syringe, BD Ultra-Fine 0.3 [...] 5 Refills, Maintenance, 05/31/20 14:57:00 EDT, Solution, [facility]/pharmacy #[id number], 180.3, cm, 05/31/20 14:08:00 EDT, Height, 120.7, kg, 11/03/19 13:31:00 EST, Dry Weight Start Date: 05/31/20 Status: Ordered levothyroxine 0.112 mg oral tablet 2 tablet = 224 mcg, By Mouth, Daily, # 60 tablet, 5 Refills, Maintenance, 07/10/20 12:51:00 EDT, Tablet, [facility]/pharmacy #[id number], 183, cm, 07/10/20 3:29:00 [...] 1 Refills, Maintenance, 02/05/20 14:18:00 EDT, Tablet, [facility], 3 tablet By Mouth Daily,Instr:x 8 weeks, 180.3, cm, 01/19/20 14:07:00 EDT, Height, 120.7, kg, 11/03/19 13:31:00 EST,... Start Date: 02/05/20 Status: Ordered melatonin 5 mg oral capsule 1 capsule = 5 mg, By Mouth, Daily at bedtime, # 30 capsule, 2 Refills, Maintenance, 07/10/20 12:51:00 EDT, [facility]/pharmacy #[id number], 183, cm, 07/10/20 3:29:00 [...] 4 Refills, Maintenance, 05/31/20 14:58:00 EDT, Patch, [facility]/pharmacy #[id number], 180.3, cm, 05/31/20 14:08:00 EDT, Height, 120.7, kg, 11/03/19 13:31:00 EST, Dry Weight Start Date: 05/31/20 Stop Date: 10/28/20 Status: Ordered omeprazole 20 mg oral enteric coated capsule 1 capsule = 20 mg, By Mouth, Daily, # 30 capsule, 5 Refills, Maintenance, 05/26/20 17:50:00 EDT, ECCapsule, [facility]/pharmacy #[id number], 180.3, cm, 05/06/20 16:07:00 EDT, Height, 120.7, kg, 11/03/19 13:31:00EST, Dry Weight Start Date: 05/26/20 Status: Ordered Pen Bruning, 29 G x 12.7 mm BD Ultra [...] EDT, Route to Pharmacy Electronically, [facility]/pharmacy #[id number], 180.3, cm, 06/21/20 13:42:00 EDT, Height, 120.7, kg, 11/03/19 13:31:00 EST, Dry W... Start Date: 07/05/20 Status: Ordered traZODone 50 mg oral tablet 25 mg, By Mouth, Daily at bedtime, PRN, # 30 tablet, Refills 1, Tot. Refills 1, Maintenance, Insomnia, 07/10/20 12:52:00 EDT, Route to Pharmacy Electronically, [facility]/pharmacy #[id number], 183, cm, 07/10/20 3:29:00 [...] Exam Date Time Procedure Performing Provider Status 07/08/20 7:15 PM Chest 2 Views Frontal and Lat Richar Cobb; Auth (Verified) Notes: (Chest 2 Views Frontal and Lat) Reason For Exam: Shortness of Breath, Fever;Other: RESULT: Chest 2 Views Frontal and Lat Chest 2 Views Frontal and Lat Hx of Present Illness: 1 week of different behaviors per . putting himself in situations thathe would not normally be in. pt shaved his head and also was eating a tube of frosting. worried about infection pt has L foot redness and lac to L ankle. known DM. seen in May; Reason: Other:; Shortness of Breath, Fever; Clinical Question(s): Pneumonia COMPARISON: 01/01/2020 FINDINGS: LINES AND TUBES: None. LUNGS AND PLEURA: Clear lungs. Normal pulmonary vascularity. No pleural effusion. No pneumothorax. HEART, MEDIASTINUM AND SOCORRO: Heart is normal in size. Normal mediastinal and hilar contour. BONES AND SOFT TISSUES: No acute abnormality. IMPRESSION: No acute abnormality. WSN: [id number] Ordering Physician: Gisella Schaeffer Dictated By: Ruiz Salguero MD Dictated Date/Time: 07/08/20 7:24 pm Reviewed By: Ruiz Salguero MD Signed By: Ruiz Salguero MD Signed Date/Time: 07/08/20 7:24 pm Transcribed By: CATARINO Transcribed Date/Time: 07/08/20 7:23 pm Vital Signs Most recent to oldest [Reference Range]: 1 2 3 4 Height 183 cm (07/10/20 3:29 AM) 183 cm (07/09/20 7:10 PM) 183 cm (07/09/20 3:55 AM) Weight 118.1 kg (07/09/20 12:20 AM) 119 kg (07/09/20 12:11 AM) Oxygen Saturation [94-100 %] 97 % (07/10/20 7:00 AM) 97 % (07/10/20 3:29 AM) 97 % (07/09/20 7:10 PM) Pulse Rate [55-90 bpm] 72 bpm (07/10/20 7:00 AM) 70 bpm (07/10/20 3:29 AM) 75 bpm (07/09/20 7:10 PM) Body Mass Index [18.5-24.99] 35.53 *>HHI* (07/09/20 12:11 AM) Blood Pressure [90-138/55-84 mm Hg] 145/85mm Hg *H* (07/10/20 7:50 AM) 136/75mm Hg (07/10/20 7:50 AM) 145/85mm Hg *H* (07/10/20 7:00 AM) 145/85mm Hg *H* (07/10/20 7:00 AM) Respiratory Rate [16-30 br/min] 16 br/min (07/10/20 2:50 PM) 16 br/min (07/10/20 8:49 AM) 18 br/min (07/10/20 7:50 AM) Temperature [96.8-100.4 DegF] 98.3 DegF (07/10/20 7:00 AM) 97.7 DegF (07/10/20 3:29 AM) 98.2 DegF (07/09/20 7:10 PM) Mode of Delivery (Oxygen) Room air (07/10/20 7:00 AM) Room air (07/10/20 3:29 AM) Room air (07/09/20 7:10 PM) Blood pressure sites Arm, right (07/10/20 7:00 AM) Arm, right (07/10/20 3:29 AM) Arm, right (07/09/20 7:10 PM) Temperature Route Oral (07/10/20 7:00 AM) Oral (07/10/20 3:29 AM) Oral (07/09/20 7:10 PM) Dry Weight 119 kg (07/09/20 12:11 AM) 114.5 kg (07/08/20 10:15 PM) 114.5 kg (07/08/20 5:30 PM) Weight Obtained Via Bed scale (07/09/20 12:20 AM) Bed scale (07/09/20 12:11 AM) Dry Weight Obtained Via Bed scale (07/09/20 12:11 AM) Social History Social History Type Response Tobacco Other: 3 cigars brenden y. Sex Male
--- OUTSIDE RECORDS SUMMARY | 2023-10-18 20:40 | XMS_ITS | Continuity of Care Document ---
Author Name Unknown Organization [facility] Address [address] [place] [id number]- Care Team Providers Care Automobile Washer Steam Name Role Phone Roberto CH, Efra Miramontes Primary Care Physician [place] [facility] [place]s): 07/30/23 - 08/29/23 [facility] [address] [place] [address] Attending Physician: Bobby Sandoval Admitting Physician: AdmBobby mckeon Referring Physician: Admtr, ArGisselle Allergies, Adverse Reactions, Alerts No Known Allergies [...] inactivated 5 08/16/11 Gi raheem SARS-CoV-2 mRNA (bvhbidq-sqqk-qauhi) vax 04/27/22 Recorded zoster vaccine, inactivated 06/11/21 Recorded SARS-CoV-2 (COVID-19) mRNA BNT-162b2 vac 06/11/21 Recorded SARS-CoV-2 (COVID-19) mRNA BNT-162b2 vac 12/04/20 Recorded SARS-CoV-2 (COVID-19) mRNA BNT-162b2 vac 11/13/20 Recorded tetanus/diphtheria/pertussis, acel(Tdap) 05/07/21 Given tetanus/diphtheria/pertussis, acel(Tdap) 6 6/20/11 Given Influenza Virus Vaccine (oldterm) 06/08/19 Recorde d Fluarix (oldterm) 7 08/19/13 Given pneumococcal 23-valent vaccine 8 04/01/12 Given 1Result Comment: [facility]#[id number] 2Result Comment: [07/31/2018] [facility]# [id number] 3Result Comment: [08/26/2015] [facility] 4Admin Note: VIM 03/17/12 5Admin Note: [...] Pharmacy Electronically, [facility] STORE [id number], 181.5, cm, 07/11/23 11:00:00 EDT, Height, 103, [...] Gm, 0 Refills, Maintenance, 07/11/23 13:02:00 EDT, [place], [facility]/pharmacy #[id number], Partial fill upon patient request if the prescription is for a schedule II opioid drug., 2 sprays Nares, Both Daily, 181.5, cm, 07/11/23 1... Start Date: 07/11/23 Status: Ordered fluticasone 50 mcg/inh nasal spray 2 sprays, Nares, Both, Daily in AM, 0 Refills, Maintenance, 07/14/21 14:22:00 EDT, [place], Partial fill upon patient request if the [...] Start Date: 07/13/21 Status: Ordered nystatin topical 703459 u/gm powder See Instructions, apply to stump 3 x day, # 120 Gm, 5 Refills, Maintenance, 04/23/23 15:43:00 EDT, Powder, [facility]/pharmacy #[id number], Partial fill upon patient request if the prescription is for a schedule II opioid drug., apply to stump 3 x day, 181.5, cm... Start Date: 04/23/23 Status: Ordered nystatin topical 471397 u/gm powder See Instructions, apply to stump [...] 2 Refills, Maintenance, 07/31/23 11:34:00 EST, ECCapsule, [facility]/pharmacy #[id number], 181.5, cm, 07/11/23 11:00:00 EDT, Height, 103, kg, 10/26/22 11:39:00 EST, Dry Weight Start Date: 07/31/23 Status: Ordered prazosin 2 mg oral capsule 1 capsule = 2 mg, By Mouth, Daily at bedtime, dose reduction, # 90 capsule, 1 Refills, Maintenance,06/25/23 10:14:00 EDT, Capsule, [facility]/pharmacy #[id number], Partial fill upon patient request if the prescription is for a schedule II opioid drug., 181.5, cm,... Start Date: 06/25/23 Stop Date: 12/22/23 Status: Ordered ramelteon 8 mg oral tablet 1 tablet = 8 mg, By Mouth, Daily at bedtime, # 90 tablet, 1 Refills, Maintenance, 06/25/23 10:14:00EDT, Tablet, [facility]/pharmacy #[id number], Partial [...] film, 0 Refills, Maintenance, 06/25/23 10:13:00 EDT, [facility]/pharmacy #[id number], [id number], 1.5 films sublingual in AM, 1 film sublingual in PM, 181.5, cm, 06/06/23 16:27:00 EDT, Angie... Start Date: 06/25/23 Status: Ordered tamsulosin 0.4 mg oral capsule 0.4 mg, 1, capsule, By Mouth, Daily, # 90 capsule, Refills 3, Tot. Refills 3, Maintenance, 12/20/2315:00:00 EDT, Route to Pharmacy Electronically, [facility]/pharmacy #[id number], Partial fill upon patient request if the [...] Mejia MD Position: [facility] Physician - Primary Care Member Role: PCP Address: Address: [address] [place] [id number] Name: Devorah Johnson RN Position: [facility] SN RN Member Role: Primary Care Nurse Name: Dustin Chavez RN Position: [facility] RN Member Role: Primary Care Nurse Name: Litzy Weinberg RN Position: [facility] RN Member Role: Primary Care Nurse Name: Melanie Garay Position: S RN Member Role: Primary Care Nurse Name: Yoselyn Patrick RN Position: [facility] RN Member Role: Primary Care Nurse Name: Michelle Akbar [place] Position: [facility] RN Member Role: Primary Care Nurse Name: Saundra Gonzalez Position: [facility] RN Member Role: Primary Care Nurse Name: Soífa Moreno RN Position: [facility] RN Member Role: Primary Care Nurse Name: Sary Tong RN Position: [facility] RN Member Role: Primary Care Nurse Name: Danielito Woo RN Position: [facility] Hospital Tank Crewmember Member Role: Primary Care Nurse Care Team Related Persons Name: ANGELOTINY Address: home [address], [place] Name: FERNIE CUMMINS Address: home [address], [place] Name: TINY CUMMINS Address: home [address], [place]
--- OUTSIDE RECORDS SUMMARY | 2023-10-18 20:40 | XMS_ITS | Continuity of Care Document ---
Author Name Unknown Organization [facility] Address [address] [place] [address]- Care Team Providers Care Java Jsf Developer Name Role Phone Efra Mejia MD Primary Care Physician [phone] Encounter [facility] [place] Date(s): 05/15/21 - 06/15/21 [facility] [address] [place] [address]- Attending Physician: Efra Mejia MD Allergies, Adverse [...] 08/03/08 2Result Comment: [07/31/2018] [facility]# [id number] 3Result Comment: [08/26/2015] done at [facility] [...] Gm, 5 Refills, Maintenance, 12/15/20 12:56:00 EDT, [place], [facility] #[id number], Partial fill upon patient request [...] patch, 0 Refills, Maintenance, 04/03/21 9:04:00 EDT, [facility]/pharmacy #[id number], Partial fill upon patient request if the prescription is for a schedule II opioid drug., 1 patch Topically Daily, 180, cm, 04/03/21 7:30:00 EDT, H... Start Date: 04/03/21 Status: Ordered lisinopril 20 mg oral tablet 20 mg, 1, tablet, By Mouth, Daily, # 30 tablet, Refills 0, Tot. Refills 0, Maintenance, 05/09/21 9:00:00 EDT, Route to Pharmacy Electronically, [facility]/pharmacy #[id number], Partial fill upon patient request if the prescription is for a schedule II opioid drug.... Start Date: 05/09/21 Status: Ordered nystatin topical 132674 u/gm powder See Instructions, apply to stump daily, # 30 Gm, 5 Refills, Maintenance, 12/15/20 12:56:00 EDT, Powder, [facility]/pharmacy #[id number], Partial fill upon patient request if the prescription is for a schedule II opioid drug., apply to stump daily, 183, cm, ... Start Date: 12/15/20 Status: Ordered omeprazole 20 mg oral enteric coated capsule 1 capsule = 20 mg, By Mouth, Daily, # 30 capsule, 5 Refills, Maintenance, 10/27/20 10:22:00 EST, ECCapsule, [facility]/pharmacy #[id number], 183, cm, 10/27/20 [...] Refills, Maintenance, 12/15/20 12:38:00 EDT, Solution, [id number], Partial fill upon patient request if [...]
--- OUTSIDE RECORDS SUMMARY | 2023-10-18 20:40 | XMS_ITS | Continuity of Care Document ---
Author Name Unknown Organization [facility] Address [address] [place] [address]- Care Team Providers Care Slab Installer Name Role Phone Efra Mejia MD Primary Care Physician Encounter [facility] [place] Date(s): 12/06/22 - 02/09/23 [facility] [address] [place] [address]- Attending Physician: Efra Mejia MD Allergies, Adverse Reactions, Alerts No Known Allergies Immunizations Given and Recorded Vaccine Date Status Refusal Reason SARS-CoV-2 mRNA (vufbvka-wcqb-ogzqw) vax 04/27/22 Recorded influenza virus vaccine, inactivated [...] 04/01/12 Given 1Result Comment: [facility]#[id number] 2Result Comment: [07/31/2018] [facility]# [id number] 3Result Comment: [08/26/2015] done at [facility] 4Admin Note: VIM 03/17/12 5Admin Note: VIM 04/10/11 6Admin Note: VIM 08/03/08 7Admin Note: VIS GIVEN 04/10/13 8Admin Note: vis given dated 06/21/09 Medications ARIPiprazole 5 mg oral tablet 5 mg, 1, tablet, By Mouth, Daily, # 90 tablet, Refills 1, Tot. Refills 1, Maintenance, 09/28/22 8:16:00 EST, Route to Pharmacy Electronically, [facility]/pharmacy #[id number], Partial fill upon patient request ifthe prescription is for a schedule II opioid drug.,... Start Date: 09/28/22 Stop Date: 03/27/23 Status: Ordered citalopram 40 mg oral tablet 40 mg, 1, tablet, By Mouth, Daily, Take with food., # 90 tablet, Refills 1, Tot. Refills 1, Maintenance, 09/28/22 8:16:00 EST, Route to Pharmacy Electronically, [facility]/pharmacy #[id number], 181.5, cm, 08/30/22 16:11:00 EST, Height, 105, kg, 09/26/21 3:23:00 ES... Start Date: 09/28/22 Stop Date: 03/27/23 Status: Ordered donepezil 10 mg oral tablet 10 mg, 1, tablet, By Mouth, Daily at bedtime, # 90 tablet, Refills 2, Tot. Refills 2, Maintenance, 10/11/22 12:01:00 EST, Route to Pharmacy Electronically, [facility]/pharmacy #[id number], Partial fill upon patient request if [...] AM, 0 Refills, Maintenance, 07/14/21 14:22:00 EDT, [place], Partial fill upon patient request if the [...] 16:37:00 EDT, Route to Pharmacy Electronically, [facility]/pharmacy #[id number], override needed for lost prescription, thanks., 181.5, cm, 10/26/22 11:39:0... Start Date: 01/30/23 Status: Ordered levothyroxine 0.112 mg oral tablet 2 tablet = 224 mcg, By Mouth, Daily, # 60 tablet, 2 Refills, Maintenance, 12/19/22 16:00:00 EDT, Tablet, [id number], 181.5, cm, 10/26/22 11:39:00 EST, [...] Start Date: 07/13/21 Status: Ordered nystatin topical [id number] u/gm powder See Instructions, apply to stump [...] Refills, Maintenance, 01/30/23 13:42:00 EDT, ECCapsule, [facility]/pharmacy #[id number], 181.5, cm, 10/26/22 11:39:00 EST, Height, 103, kg, 10/26/22 11:39:00 EST, Dry Weight Start Date: 01/30/23 Status: Ordered prazosin 2 mg oral capsule 2 capsule = 4 mg, By Mouth, Daily at bedtime, dose increase, # 180 capsule, 1 Refills, Maintenance,09/28/22 8:17:00 EST, Capsule, [facility]/pharmacy #[id number], Partial fill upon patient request if the prescription is for a schedule II opioid drug., 181.5, cm,... Start Date: 09/28/22 Stop Date: 03/27/23 Status: Ordered ramelteon 8 mg oral tablet 1 tablet = 8 mg, By Mouth, Daily at bedtime, # 90 tablet, 1 Refills, Maintenance, 09/28/22 8:16:00 EST, Tablet, [facility]/pharmacy #[id number], Partial fill upon patient request if [...] in AM, 1 film sublingual in PM [id number], # 75 film, 1 Refills, Maintenance, 12/18/22 8:06:00 EDT, [facility]/pharmacy #[id number], 1.5 films sublingual in AM, 1 film sublingual in PM ; [id number], 181.5, cm, 10/26/22 11:39:... Start Date: 12/18/22 Status: Ordered tamsulosin 0.4 mg oral capsule 0.4 mg, 1, capsule, By Mouth, Daily, # 90 capsule, Refills 3, Tot. Refills 3, Maintenance, 12/20/2315:00:00 EDT, Route to Pharmacy Electronically, [facility]/pharmacy #[id number], Partial fill upon patient request if [...] Team Personnel Name: Cayla Herrera RN Position: [facility] ED RN W/OE and Tasks Member Role: Primary Care Nurse Name: Alka Lee RN Position: [facility] SN RN Member Role: Primary Care Nurse Name: Jaleel Lo RN Position: [facility] RN Member Role: Primary Care Nurse Name: Ivy Smith RN Position: S RN Member Role: Primary Care Nurse Name: Efra Mejia MD Position: [facility] Physician - Primary Care Member Role: PCP Address: Address: [address] [place] [address] [id number] Name: Devorah Johnson RN Position: S RN Member Role: Primary Care Nurse Name: Dustin Chavez RN Position: [facility] RN Member Role: Primary Care Nurse Name: Litzy Weinberg RN Position: [facility] RN Member Role: Primary Care Nurse Name: Melanie Garay Position: [facility] RN Member Role: Primary Care Nurse Name: Michelle Buckley Position: [facility] RN Member Role: Primary Care Nurse Name: Saundra Gonzalez Position: [facility] RN Member Role: Primary Care Nurse Name: Sofía Moreno RN Position: [facility] RN Member Role: Primary Care Nurse Name: Sary Tong RN Position: [facility] RN Member Role: Primary Care Nurse Name: Sophia Lomas RN Position: [facility] RN Member Role: Primary Care Nurse Name: Danielito Woo RN Position: [facility] [employer] Member Role: Primary Care Nurse Care Team Related Persons Name: TINY STEPHENS Address: [address] [place] [address] Name: FERNIE CUMMINS Address: [address], [place] Name: TINY CUMMINS Address: [address] [place] [address]
--- OUTSIDE RECORDS SUMMARY | 2023-10-18 20:40 | XMS_ITS | Continuity of Care Document ---
Author Name Unknown Organization [facility] Address [address] [place] [address]- Care Team Providers Care Organic Section Technical Lead Name Role Phone Roberto CH, Efra Miramontes Primary Care Physician [place] [facility] [place]22 [facility] [address] [place] [address]- Encounter Diagnosis Diabetes mellitus type 2(Discharge Diagnosis) - 08/30/22 Anemia(Discharge Diagnosis) - 08/30/22 Ulcer of left ankle(Discharge Diagnosis) - 08/30/22 Attending Physician: Mo Rodas MD Allergies, Adverse Reactions, Alerts No Known [...] vaccine 8 04/01/12 Given 1Result Comment: [facility]#[id number] 2Result Comment: [07/31/2018] [facility]# [id number] 3Result Comment: [08/26/2015] done at [facility] 4Admin Note: VIM 03/17/12 5Admin Note: VIM 04/10/11 6Admin Note: VIM 08/03/08 7Admin Note: VIS GIVEN 04/10/13 8Admin Note: vis given dated 06/21/09 Medications ARIPiprazole 5 mg oral tablet 5 mg, 1, tablet, By Mouth, Daily, # 90 tablet, Refills 1, Tot. Refills 1, Maintenance, 06/05/22 10:07:00 EDT, Route to Pharmacy Electronically, [facility]/pharmacy #[id number], Partial fill upon patient request if the prescription is for a schedule II opioid drug.... Start Date: 06/05/22 Stop Date: 12/02/22 Status: Ordered citalopram 40 mg oral tablet 40 mg, 1, tablet, By Mouth, Daily, Take with food., # 90 tablet, Refills 1, Tot. Refills 1, Maintenance, 06/05/22 10:06:00 EDT, Route to Pharmacy Electronically, [facility]/pharmacy #[id number], 181.5, cm, 05/08/22 8:39:00 EDT, Height, 105, kg, 09/26/21 3:23:00 ES... Start Date: 06/05/22 Stop Date: 12/02/22 Status: Ordered donepezil 10 mg oral tablet 10 mg, 1, tablet, By Mouth, Daily at bedtime, # 90 tablet, Refills 1, Tot. Refills 1, Maintenance, 05/08/22 9:47:00 EDT, [facility] Electronically, [facility] AM, 0 Refills, Maintenance, 07/14/21 14:22:00 EDT, [place], Partial fill upon patient request if the [...] 08/06/22 11:09:00 EST, Route to Pharmacy Electronically, [facility]/pharmacy #[id number], Partial fill upon patient request if the prescription is for a schedule II... Start Date: 08/06/22 Status: Ordered levothyroxine 0.112 mg oral tablet 2 tablet = 224 mcg, By Mouth, Daily, # 60 tablet, 2 Refills, Maintenance, 09/05/22 12:50:00 EST, Tablet, [facility]/pharmacy #[id number], 181.5, cm, 08/30/22 16:11:00 EST, [...] Start Date: 07/13/21 Status: Ordered nystatin topical 287847 u/gm powder See Instructions, apply to stump [...] 0 Refills, Maintenance, 08/28/22 13:07:00 EST, ECCapsule, [facility]/pharmacy #[id number], 181.5, cm, 05/08/22 8:39:00 EDT, Height, 105, kg, 09/26/21 3:23:00 EST, Dry Weight Start Date: 08/28/22 Status: Ordered prazosin 2 mg oral capsule 1 capsule = 2 mg, By Mouth, Daily at bedtime, # 90 capsule, 1 Refills, Maintenance, 06/05/22 10:07:00 EDT, Capsule, [facility]/pharmacy #[id number], Partial fill upon patient request if the prescription is for a schedule II opioid drug., 181.5, cm, 05/08/22 8:39:0... Start Date: 06/05/22 Stop Date: 12/02/22 Status: Ordered ramelteon 8 mg oral tablet 1 tablet = 8 mg, By Mouth, Daily at bedtime, # 90 tablet, 1 Refills, Maintenance, 06/05/22 10:07:00EDT, Tablet, [facility]/pharmacy #[id number], Partial fill upon patient request if the prescription is for a schedule II opioid drug., 181.5, cm, 05/08/22 8:39:00 E... Start Date: 06/05/22 Stop Date: 12/02/22 Status: Ordered Suboxone 8 mg-2 mg Sublingual Film See Instructions, 1.5 films sublingual in AM, 1 film sublingual in PM [id number] next appt 09/04, # 75 film, 0 Refills, Maintenance, 08/28/22 16:20:00 EST, [facility]/pharmacy #[id number], 1.5 films sublingual in AM, 1 film sublingual in PM ; [id number]; next celestina... Start Date: 08/28/22 Status: Ordered [...] Dates Health Status Cl inical Service Informant Diabetes mellitus type 2 Discharge Diagnosis 08/30/22 Anemia Discharge Diagnosis 08/30/22 Ulcer of left ankle Discharge Diagnosis 08/30/22 Vital Signs Most recent to oldest [Reference Range]: 1 Height 181.5 cm (08/30/22 4:11 PM) Weight 107.4 kg (08/30/22 4:11 PM) Oxygen Saturation [94-100 %] 97 % (08/30/22 4:11 PM) Pulse Rate [55-90 bpm] 64 bpm (08/30/22 4:11 PM) Body Mass Index [18.5-24.99 kg/m2] 32.6 kg/m2 *>HHI* (08/30/22 4:11 PM) Blood Pressure [90-138/55-84 mm Hg] 128/ 77mm Hg (08/30/22 4:11 PM) Blood pressure sites Arm, left (08/30/22 4:11 PM) Weight Obtained Via Standing scale (08/30/22 4:11 PM) Social History Social History Type Response Tobacco Other: 3 cigars brenden y. Sex Note * Humaira Quinteros: PERFORM, SIGN, VERIFY Event Display: Patient Education/Instruction Authored Date: [id number] [facility] Clinical Summary Name NIHARIKA CUMMINS Age 66 Years 1955 PCP Roberto CH, Efra Miramontes PCP Visit Date 08/30/2022 16:07:00 Patient Instructions labs ordered Additional Instructions: Scheduled Appointments?? Future Appointments ?*[facility] [address]??[place],??[place],??[address] ?Phone:??--?Fax:??-- ?Appt. Date:??09/04/2022?10:30 AM ?Scheduled Provider:??Sharon Spears DO ?*[facility] [address]??[place],??[place],??[address] ?Phone:??--?Fax:??-- ?Appt. Date:??09/28/2022?8:00 AM ?Scheduled Provider:??Mirela COULTER, Rekha M ?*[facility] [address]??[place],??[place],??[address] ?Phone:??--?Fax:??-- ?Appt. Date:??10/04/2022?9:40 AM ?Scheduled Provider:??Roberto CH , Efra Miramontes ?*[facility] ?[address] ?[place],??[place],??[address] ?Phone:??--?Fax:??-- ?Appt. Date:??10/11/2022?11:30 AM ?Scheduled Provider:??Ever BELL, Shahbaz Thorne Follow-Up Instructions ?? Diagnosis Non-pressure chronic ulcer of left ankle with unspecified severity; Anemia, unspecified; Type 2 diabetes mellitus without complications Medications: Please continue your medications until treatment is completed or stopped by your provider. Discuss any questions related to medications with your provider. Medications to Continue with No Changes These medications were not printed or sent to your pharmacy Aripiprazole (ARIPiprazole 5 mg oral tablet) 1 tab(s) Oral Daily for 90 Days. Refills: 1. Next Dose: Buprenorphine-Naloxone (Suboxone 8 mg-2 mg Sublingual Film) 1.5 films sublingual in AM, 1 film sublingual in PM [id number] next appt 09/04. Refills: 0. Next Dose: Citalopram (citalopram 40 mg oral tablet) 1 tab(s) Oral Daily for 90 Days. Take with food.. Refills: 1. Next Dose: Donepezil (donepezil 10 mg oral tablet) 1 tab(s) Oral Daily at Bedtime for 90 Days. Refills: 1. Next Dose: Ferrous Sulfate (ferrous sulfate 325 [...] tab(s) Oral Daily for 30 Days. Refills: 1. Next Dose: Melatonin (melatonin 5 mg oral tablet) 1 tab(s) Oral Daily at Bedtime as needed for insomnia. Next Dose: Nystatin Topical (nystatin topical 806107 u/gm powder) apply to stump 3 x day. Refills: 5. Next Dose: Omeprazole (omeprazole 20 mg oral enteric coated capsule) 1 capsule Oral Daily. Refills: 0. Next Dose: Prazosin (prazosin 2 mg oral capsule) 1 capsule Oral Daily at Bedtime for 90 Days. Refills: 1. Next Dose: Ramelteon (ramelteon 8 mg oral tablet) 1 tab(s) Oral Daily at Bedtime for 90 Days. Refills: 1. Next Dose: Tamsulosin (tamsulosin 0.4 mg oral capsule) 1 capsule Oral Daily. Refills: 3. Next Dose: Allergy Info:?? NKA Medications Given This Visit Future Orders ?No future orders Vital Signs Height 181.5 cm Weight 107.4 kg BMI 32.6 kg/m2 Blood Pressure 128 mm Hg/77 mm Hg Temperature Pulse Rate 64 bpm Respiratory Rate 02 Sat Mode of Delivery 97 %/ You can now view a summary of your hospital visit from the comfort of your home through a free online portal called [facility]. [facility] [facility] is a website that allows you to securely view your medical information including discharge summary, medications and follow-up visits. ??You can alsosend a secure electronic message to your doctor???s office to request appointments, renew medications or just ask a question. You can enroll at [email or web address] or register during your next office visit. [...] primary care provider, you may find a [facility] provider by calling [facility] [employer] [facility] at [phone]. For information about the plan of care [...] Team Personnel Name: Alka Lee RN Position: [facility] RN Member Role: Primary Care Nurse Name: Jaleel Lo RN Position: [facility] RN Member Role: Primary Care Nurse Name: Ivy Smith RN Position: [facility] RN Member Role: Primary Care Nurse Name: Efra Mejia MD Position: [facility] Primary Care Physician Member Role: PCP Address: Address: [address] [place] [address] Name: Devorah Johnson RN Position: [facility] RN Member Role: Primary Care Nurse Name: Dustin Chavez RN Position: [facility] RN Member Role: Primary Care Nurse Name: Litzy Weinberg RN Position: [facility] RN Member Role: Primary Care Nurse Name: Melanie Garay Position: [facility] RN Member Role: Primary Care Nurse Name: Yoselyn Patrick RN Position: [facility] RN Member Role: Primary Care Nurse Name: Michelle Buckley Position: [facility] RN Member Role: Primary Care Nurse Name: Saundra Gonzalez Position: [facility] RN Member Role: Primary Care Nurse Name: Sofía Moreno RN Position: [facility] RN Member Role: Primary Care Nurse Name: Sary Tong RN Position: [facility] RN Member Role: Primary Care Nurse Name: Sophia Lomas RN Position: [facility] RN Member Role: Primary Care Nurse Name: Danielito Woo RN Position: [facility] Hospital Major Account Representative Member Role: Primary Care Nurse Care Team Related Persons Name: PHILIPTINY CORRAL Address: [address] [place] [address] Name: FERNIE CUMMINS Address: [address] [place], [place] Name: CUMMINSTINY Address: home [address] [place], [place]
--- OUTSIDE RECORDS SUMMARY | 2023-10-18 20:40 | XMS_ITS | Continuity of Care Document ---
Author Name Unknown Organization [facility] Address [address] [place] [address]- Care Team Providers Care Bandage Maker Name Role Phone Roberto CH, Efra Miramontes Primary Care Physician Encounter [facility] Date(s): 10/16/19 - 10/16/[address] [address]- [facility] Discharge Disposition: A-D/C Home Attending Physician: Hasmukh Piña MD Admitting Physician: [...] 1Result Comment: [07/31/2018] [facility]# [id number] 2Result Comment: [08/26/2015] done at [facility] 3Admin Note: VIM [...] Maintenance, 07/02/16 16:06:12, Route to Pharmacy Electronically, [id number], [facility] #[facility] Start Date: [...] 04/10/19 17:13:55 EDT, Route to Pharmacy Electronically, [id number], [facility] #[facility] Start Date: [...] 1 Refills, Maintenance, 10/08/19 16:20:00 EST, Solution, [facility]/pharmacy #[id number], 180, cm, 10/08/19 15:20:00 EST, [...] 01/20/18 13:36:03 EDT, Route to Pharmacy Electronically, [id number], [facility] #[facility] Start Date: [...] Weight Start Date: 08/27/19 Status: Ordered Pen [place], 29 G x 12.7 mm BD Ultra [...] tx. 2seen by ortho 10/04 and 01/02 Procedures Procedure Date Related Diagnosis Body Site Status Esophagogastroduodenoscopy and biopsy 10/16/19 Completed Vital Signs Most recent to oldest [Reference Range]: 1 2 3 Height 180.3 cm (10/16/19 12:30 PM) Weight 121.6 kg (10/16/19 12:30 PM) Oxygen Saturation [94-100 %] 95 % (10/16/19 1:38 PM) 95 % (10/16/19 1:36 PM) 94 % (10/16/19 1:30 PM) Pulse Rate [55-90 bpm] 69 bpm (10/16/19 12:30 PM) Body Mass Index [18.5-24.99] 37.41 *>HHI* (10/16/19 12:30 PM) Blood Pressure [90-138/55-84 mm Hg] 129/85mm Hg (10/16/19 1:38 PM) 133/77mm Hg (10/16/19 1:30 PM) 138/76mm Hg (10/16/19 12:30 PM) Respiratory Rate [16-30 br/min] 20 br/min (10/16/19 1:38 PM) 20 br/min (10/16/19 1:30 PM) 20 br/min (10/16/19 12:30 PM) Temperature [96.8-100.4 DegF] 96.8 DegF (10/16/19 12:30 PM) Mode of Delivery (Oxygen) Room air (10/16/19 1:38 PM) Room air (10/16/19 1:36 PM) Room air (10/16/19 1:30 PM) Blood pressure sites Arm, left (10/16/19 1:38 PM) Arm, left (10/16/19 1:30 PM) Arm, left (10/16/19 12:30 PM) Temperature Route Temporal (10/16/19 12:30 PM) Social History Social History Type Response Tobacco Other: 3 cigars brenden y. Sex
--- OUTSIDE RECORDS SUMMARY | 2023-10-18 20:40 | XMS_ITS | Continuity of Care Document ---
Author Name Unknown Organization [facility] Address [address] [place] [address]- Care Team Providers Care Intermediate Teacher Name Role Phone Roberto CH, Efra Miramontes Primary Care Physician Encounter [facility] Date(s): 04/23/23 - 05/23/23 [facility] [address] [place] [address]- Attending Physician: AdmBobby mckeon Admitting Physician: Admtr, Bobby Referring Physician: Admtr, Ar8 Allergies, Adverse Reactions, Alerts No Known Allergies Immunizations Given and Recorded Vaccine Date Status Refusal Reason SARS-CoV-2 mRNA ([id number]) vax 04/27/22 Recorded influenza virus vaccine, inactivated [...] 04/01/12 Given 1Result Comment: [facility]#[id number] 2Result Comment: [07/31/2018] [facility]# [id number] 3Result Comment: [08/26/2015] done at [facility] 4Admin Note: VIM 03/17/12 5Admin Note: VIM 04/10/11 6Admin Note: VIM 08/03/08 7Admin Note: VIS GIVEN 04/10/13 8Admin Note: vis given dated 06/21/09 Medications ARIPiprazole 5 mg oral tablet 5 mg, 1, tablet, By Mouth, Daily, # 90 tablet, Refills 1, Tot. Refills 1, Maintenance, 03/01/23 10:12:00 EDT, Route to Pharmacy Electronically, [facility] 10:12:00 EDT, Route to Pharmacy Electronically, [facility]/pharmacy [facility][id number], 181.5, cm, 02/05/23 12:41:00 EDT, Height, [...] AM, 0 Refills, Maintenance, 07/14/21 14:22:00 EDT, [place], Partial fill upon patient request if the [...] 17:30:00 EDT, Route to Pharmacy Electronically, [facility]/pharmacy #[id number], override needed for lost prescription, thanks., 181.5, cm, 03/07/23 10:11:0... Start Date: 03/27/23 Status: Ordered levothyroxine 0.112 mg oral tablet 2 tablet = 224 mcg, By Mouth, Daily, # 60 tablet, 2 Refills, Maintenance, 03/27/23 12:47:00 EDT, Tablet, [facility]/pharmacy #[id number], 181.5, cm, 03/07/23 10:11:00 EDT, Height, [...] Start Date: 07/13/21 Status: Ordered nystatin topical 937352 u/gm powder See Instructions, apply to stump 3 x day, # 120 Gm, 5 Refills, Maintenance, 04/23/23 15:43:00 EDT, Powder, [facility]acy #[id number], Partial fill upon patient request if the prescription is for a schedule II opioid drug., apply to stump 3 x day, 181.5, cm... Start Date: 04/23/23 Status: Ordered nystatin topical 757829 u/gm powder See Instructions, apply to stump [...] in AM, 1 film sublingual in PM [id number], # 75 film, 1 Refills, Maintenance, 04/26/23 8:11:00 EDT, [facility]/pharmacy #[id number], 1.5 films sublingual in AM, 1 film sublingual in PM ; [id number], 181.5, cm, 04/23/23 15:02:... Start Date: 04/26/23 Status: Ordered tamsulosin 0.4 mg oral capsule 0.4 mg, 1, capsule, By Mouth, Daily, # 90 capsule, Refills 3, Tot. Refills 3, Maintenance, 12/20/2315:00:00 EDT, Route to Pharmacy Electronically, [facility] [...] Team Personnel Name: .Cayla Jean RN Position: [facility] ED RN W/OE and Tasks Member Role: Primary Care Nurse Name: Alka Lee RN Position: [facility] RN Member Role: Primary Care Nurse Name: Jaleel oL RN Position: [facility] RN Member Role: Primary Care Nurse Name: Ivy Smith RN Position: [facility] RN Member Role: Primary Care Nurse Name: Efra Mejia MD Position: [facility] Physician - Primary Care Member Role: PCP Address: Address: [address] [place] [address] Name: Devorah Johnson RN Position: [facility] RN Member Role: Primary Care Nurse Name: Dustin Chavez RN Position: [facility] RN Member Role: Primary Care Nurse Name: Litzy Weinberg RN Position: [facility] RN Member Role: Primary Care Nurse Name: Melanie Garay Position: [facility] RN Member Role: Primary Care Nurse Name: Yoselyn Patrick RN Position: [facility] RN Member Role: Primary Care Nurse Name: Michelle Akbar [place] Position: [facility] RN Member Role: Primary Care Nurse Name: Saundra Gonzalez Position: [facility] RN Member Role: Primary Care Nurse Name: Sofía Moreno RN Position: [facility] RN Member Role: Primary Care Nurse Name: Sary Tong RN Position: [facility] RN Member Role: Primary Care Nurse Name: Sophia Lomas RN Position: [facility] RN Member Role: Primary Care Nurse Name: Danielito Woo RN Position: [facility] Hospital Dental Associate Member Role: Primary Care Nurse Care Team Related Persons Name: TINY STEPHNES Address: [address] [place] [address] Name: FERNIE CUMMINS Address: [address] [place] [address] Name: TINY CUMMINS Address: [address] [place] [address]
--- OUTSIDE RECORDS SUMMARY | 2023-10-18 20:40 | XMS_ITS | Continuity of Care Document ---
Author Name Unknown Organization [facility] Address [address] [place] [address]- Care Team Providers Care Sap Business Analyst Name Role Phone Efra Mejia MD Primary Care Physician [phone] Encounter [facility] Date(s): 05/05/20 - 06/04/20 [facility] [address] [place] [address]- [facility] Allergies, Adverse Reactions, Alerts Substance [...] acel(Tdap) 7 03/05/11 Given 1Result Comment: [07/31/2018] [facility]# [id number] 2Result Comment: [08/26/2015] done at [facility] 3Admin Note: VIM 03/17/12 4Admin Note: VIM 04/10/11 5Admin Note: VIS GIVEN 04/10/13 6Admin Note: vis given dated 06/21/09 7Admin Note: VIM 08/03/08 Medications albuterol CFC free 90 mcg/inh inhalation aerosol 1, puffs, Inhalation, 4 times a day, PRN, # 18 Gm, Refills 0, Tot. Refills 0, Maintenance, 12/02/2009:56:00 EDT, Aerosol, Route to Pharmacy Electronically, [id number], [facility]/pharmacy #[id number], 180.3, [...] Maintenance, 07/02/16 16:06:12, Route to Pharmacy Electronically, [id number], [facility] Start Date: [...] [id number], 180.3, cm, 05/31/20 14:08:00 EDT, Height, 120.7, kg, 11/03/19 13:31:00 EST,... Start Date: 05/31/20 Status: Ordered ibuprofen 800 mg oral tablet 800 mg, 1, tablet, By Mouth, Every 8 hours, PRN, # 90 tablet, Refills 0, Tot. Refills 0, Maintenance, as needed for pain, 04/10/19 17:13:55 EDT, Route to Pharmacy Electronically, [id number], [facility] #[facility] Start Date: [...] Maintenance, 05/31/20 14:57:00 EDT, Solution, [facility]/pharmacy #[id number], 180.3, cm, 05/31/20 14:08:00 EDT, Height, [...] 01/20/18 13:36:03 EDT, Route to Pharmacy Electronically, [id number], [facility] #[facility] Start Date: 01/20/18 Stop Date: 01/15/19 Status: Ordered Mavyret 100 mg-40 mg oral tablet 3 tablet, By Mouth, Daily, x 8 weeks, # 84 tablet, 1 Refills, Maintenance, 02/05/20 14:18:00 EDT, Tablet, [facility], 3 tablet By Mouth Daily,Instr:x [...] Maintenance, 05/31/20 14:58:00 EDT, Patch, [facility]/pharmacy #[id number], 180.3, cm, 05/31/20 14:08:00 EDT, Height, [...] Weight Start Date: 05/26/20 Status: Ordered Pen [place], 29 G x 12.7 mm BD Ultra [...]
--- OUTSIDE RECORDS SUMMARY | 2023-10-18 20:40 | XMS_ITS | Continuity of Care Document ---
Author Name Unknown Organization [facility] Address [address] [place] [address]- Care Team Providers Care Silo Man Name Role Phone Roberto CH, Efra Miramontes Primary Care Physician [place] [facility] [place] 09[place]28[place]21 - 11/09/21 [facility] [address] [place], [place] [address] Attending Physician: Anand Miller MD Admitting Physician: [...] 1Result Comment: [facility]#[id number] 2Result Comment: [07/31/2018] [facility]# [id number] 3Result Comment: [08/26/2015] done at [facility] 4Admin Note: VIM 03/17/12 5Admin Note: VIM 04/10/11 6Admin Note: VIM 08/03/08 7Admin Note: VIS GIVEN 04/10/13 8Admin Note: vis given dated 06/21/09 Medications donepezil 5 mg oral tablet 5 mg, 1, tablet, By Mouth, Daily, # 30 tablet, Refills 5, Tot. Refills 5, Maintenance, 06/02/21 14:20:00 EDT, Route to Pharmacy Electronically, [facility]/pharmacy #[id number], Partial fill upon [...] AM, 0 Refills, Maintenance, 07/14/21 14:22:00 EDT, [place], Partial fill upon patient request if the [...] EST, Route to Pharmacy Electronically, [facility]/pharmacy #[id number], Partial fill upon patient request if the prescription is for a schedule II... Start Date: 08/31/21 Status: Ordered Iodosorb 0.9% topical gel See Instructions, Continue wound care with iodosorb gel and 2x2 dressing daily to small wound Betadine pain to incision, # 1 each, 0 Refills, Maintenance, 09/28/21 18:43:00 EST, [facility]/pharmacy #[id number], Partial fill upon [...] Start Date: 07/13/21 Status: Ordered nystatin topical 676823 u/gm powder See Instructions, apply to stump 3 x day, # 120 Gm, 5 Refills, Maintenance, 07/06/21 12:35:00 EDT, Powder, [facility]/pharmacy #[id number], Partial fill upon [...] [facility]/pharmacy #[id number], Partial fill upon patient request if the prescription is for a schedule II opioid d... Start Date: 07/06/21 Status: Ordered Trulicity Pen 0.75 mg/0.5 mL subcutaneous solution 0.5 mL = 0.75 mg, Subcutaneous Injection, Every week, rotate injection sites, # 2 mL, 5 Refills, Maintenance, 10/05/21 11:20:00 EST, Solution, [facility]/pharmacy #[id number], Partial fill upon [...]
[2023-10-18 20:41] LABS: Basophils Percent Auto 0.5 % (0-2); Eosinophils Absolute Auto 0.2 X10*3/uL (0.0-0.4); Eosinophils Percent Auto 4.9 % (0-4); Hematocrit 35.2 % (42.0-52.0); Hemoglobin 12.4 g/dl (14.0-18.0); Imm Gran Abs Auto 0.01 X10*3/uL (0.00-0.03); Imm Gran Pct Auto 0.2 % (0.0-0.4); Lymphocytes Absolute Auto 1.3 X10*3/uL (1.2-4.9); Lymphocytes Percent Auto 32.5 % (20-40); Mean Corpuscular HGB Conc 35.2 g/dl (31.0-36.0); Mean Corpuscular Hemoglobin 30.6 pg (27.0-33.0); Mean Corpuscular Volume 86.9 fL (80.0-98.0); Mean Platelet Volume 9.7 fL (9.4-12.4); Monocytes Absolute Auto 0.3 X10*3/uL (0.1-1.2); Monocytes Percent Auto 8.1 % (2-11); Neutrophils Absolute Auto 2.2 x10*3/uL (2.0-8.3); Neutrophils Percent Auto 53.8 % (45-73); Platelet Count 180 X10*3/uL (160-400); Red Blood Count 4.05 X10*6/uL (4.60-5.80); Red Cell Distribution Width 13.2 % (11.0-16.0); White Blood Count 4.1 X10*3/uL (4.8-10.8)
--- OUTSIDE RECORDS SUMMARY | 2023-10-18 20:41 | XMS_ITS | Continuity of Care Document ---
Author Name Unknown Organization [facility] Address [address] [facility], 3[address] d Floor, [address] [place] [address]- Care Team Providers Care Insulation Cupola Charger Name Role Phone Efra Mejia MD Primary Care Physician [place] [facility] [place]16/23 [facility] [address], 3[address], [address] [place] [address]- Allergies, Adverse Reactions, Alerts No Known Allergies Immunizations Given and Recorded Vaccine Date Status Refusal Reason SARS-CoV-2 mRNA (ecmxexy-wzbx-btgal) vax 04/27/22 Recorded influenza virus vaccine, inactivated [...] vaccine 8 04/01/12 Given 1Result Comment: [facility]#[id number] 2Result Comment: [07/31/2018] [facility]# [id number] 3Result Comment: [08/26/2015] done at [facility] [...] Pharmacy Electronically, [facility]/pharmacy #[id number], 181.5, cm, 02/05/23 12:41:00 EDT, Height, [...] AM, 0 Refills, Maintenance, 07/14/21 14:22:00 EDT, [place], Partial fill upon patient request if the [...] Pharmacy Electronically, [facility]/pharmacy #[id number], override needed for lost prescription, thanks., 181.5, cm, 03/07/23 10:11:0... Start Date: 03/27/23 Status: Ordered levothyroxine 0.112 mg oral tablet 2 tablet = 224 mcg, By Mouth, Daily, # 60 tablet, 2 Refills, Maintenance, 03/27/23 12:47:00 EDT, Tablet, [facility]/pharmacy #[id number], 181.5, cm, 03/07/23 10:11:00 EDT, Height, [...] Start Date: 07/13/21 Status: Ordered nystatin topical 387188 u/gm powder See Instructions, apply to stump 3 x day, # 120 Gm, 5 Refills, Maintenance, 04/23/23 15:43:00 EDT, Powder, [facility]/pharmacy #[id number], Partial fill upon patient request if the prescription is for a schedule II opioid drug., apply to stump 3 x day, 181.5, cm... Start Date: 04/23/23 Status: Ordered nystatin topical 842843 u/gm powder See Instructions, apply to stump [...] Maintenance, 03/01/23 10:13:00EDT, Tablet, [facility]/pharmacy #[id number], Partial fill [...] in AM, 1 film sublingual in PM [id number], # 75 film, 1 Refills, Maintenance, 04/26/23 8:11:00 EDT, [facility]/pharmacy #[id number], 1.5 films sublingual in AM, 1 film sublingual in PM ; [id number], 181.5, cm, 04/23/23 15:02:... Start Date: 04/26/23 [...] Team Personnel Name: Cayla Herrera RN Position: [facility] ED RN W/OE and Tasks Member Role: Primary Care Nurse Name: Alka Lee RN Position: [facility] RN Member Role: Primary Care Nurse Name: Jaleel Lo RN Position: S RN Member Role: Primary Care Nurse Name: Ivy Smith RN Position: [facility] RN Member Role: Primary Care Nurse Name: Efra Mejia MD Position: [facility] Physician - Primary Care Member Role: PCP Address: Address: [address] [place] [id number] Name: Devorah Johnson RN Position: [facility] RN Member Role: Primary Care Nurse Name: Dustin Chavez RN Position: [facility] RN Member Role: Primary Care Nurse Name: Litzy Weinberg RN Position: [facility] RN Member Role: Primary Care Nurse Name: Melanie Garay Position: [facility] RN Member Role: Primary Care Nurse Name: Yoselyn Patrick RN Position: [facility] RN Member Role: Primary Care Nurse Name: Michelle Akbar [place] Position: [facility] RN Member Role: Primary Care Nurse Name: Saundra Gonzalez Position: [facility] RN Member Role: Primary Care Nurse Name: Sofía Moreno RN Position: [facility] RN Member Role: Primary Care Nurse Name: Sary Tong RN Position: [facility] RN Member Role: Primary Care Nurse Name: Sophia Lomas RN Position: [facility] RN Member Role: Primary Care Nurse Name: Danielito Woo RN Position: [facility] Hospital Quality Systems Engineer Member Role: Primary Care Nurse Care Team Related Persons Name: BEAN STEPHENSORES Address: [address], [place] Name: FERNIE CUMMINS Address: home [address], [place] Name: TINY CUMMINS Address: home [address] [place], [place]
--- OUTSIDE RECORDS SUMMARY | 2023-10-18 20:41 | XMS_ITS | Continuity of Care Document ---
Author Name Unknown Organization [facility] Address [address] [place] [address]- Care Team Providers Care Circuit Design Engineer Name Role Phone Roberto CH, Efra Miramontes Primary Care Physician Encounter [facility] [place] Date(s): 01/30/23 - 03/01/23 [facility] [address] [place] [address]- Allergies, Adverse Reactions, Alerts No Known Allergies Immunizations Given and Recorded Vaccine Date Status Refusal Reason SARS-CoV-2 mRNA (ewynfhs-nlkx-vbdyv) vax 04/27/22 Recorded influenza virus vaccine, inactivated [...] vaccine 8 04/01/12 Given 1Result Comment: [facility]#[id number] 2Result Comment: [07/31/2018] [facility]# [id number] 3Result Comment: [08/26/2015] done at [facility] 4Admin Note: VIM 03/17/12 5Admin Note: VIM 04/10/11 6Admin Note: VIM 08/03/08 7Admin Note: VIS GIVEN 04/10/13 8Admin Note: vis given dated 06/21/09 Medications ARIPiprazole 5 mg oral tablet 5 mg, 1, tablet, By Mouth, Daily, # 90 tablet, Refills 1, Tot. Refills 1, Maintenance, 03/01/23 10:12:00 EDT, Route to Pharmacy Electronically, [facility]/pharmacy #[id number], Partial fill upon patient request [...] 10/11/22 12:01:00 EST, Route to Pharmacy Electronically, [facility]/pharmacy #[id number], Partial fill upon patient request [...] 03/19/23 17:50:00 EDT, 02/19/23 17:50:00 EDT, Tablet, [facility]/pharmacy #[id number], Partial fill upon patient request if the prescription is for a schedule II opioid drug., 181.5... Start Date: 02/19/23 Stop Date: 03/19/23 Status: Ordered fluticasone 50 mcg/inh nasal spray 2 sprays, Nares, Both, Daily in AM, 0 Refills, Maintenance, 07/14/21 14:22:00 EDT, [place], Partial fill upon patient request if the [...] 01/30/23 16:37:00 EDT, Route to Pharmacy Electronically, [facility]/pharmacy #0693, override needed for lost prescription, thanks., 181.5, cm, 10/26/22 11:39:0... Start Date: 01/30/23 Status: Ordered levothyroxine 0.112 mg oral tablet 2 tablet = 224 mcg, By Mouth, Daily, # 60 tablet, 2 Refills, Maintenance, 12/19/22 16:00:00 EDT, Tablet, [facility]/pharmacy #[id number], 181.5, cm, 10/26/22 11:39:00 EST, [...] Start Date: 07/13/21 Status: Ordered nystatin topical 615146 u/gm powder See Instructions, apply to stump [...] in AM, 1 film sublingual in PM [id number], # 75 film, 1 Refills, Maintenance, 03/01/23 10:12:00 EDT, [facility]/pharmacy #[id number], 1.5 films sublingual in AM, 1 film sublingual in PM ; [id number], 181.5, cm, 02/05/23 12:41... Start Date: 03/01/23 Status: Ordered tamsulosin 0.4 mg oral capsule 0.4 mg, 1, capsule, By Mouth, Daily, # 90 capsule, Refills 3, Tot. Refills 3, Maintenance, 12/20/2315:00:00 EDT, Route to Pharmacy Electronically, [facility]/pharmacy #[id number], Partial fill upon patient request [...] Personnel Name: Cayla Herrera RN Position: [facility] ED RN W/OE and Tasks Member Role: Primary Care Nurse Name: Alka Lee RN Position: [facility] RN Member Role: Primary Care Nurse Name: Jaleel Lo RN Position: [facility] RN Member Role: Primary Care Nurse Name: Ivy Smith RN Position: [facility] RN Member Role: Primary Care Nurse Name: Efra Mejia MD Position: [facility] Physician - Primary Care Member Role: PCP Address: Address: [address] [place] [id number] Name: Devorah Johnson RN Position: [facility] RN Member Role: Primary Care Nurse Name: Dustin Chavez RN Position: [facility] RN Member Role: Primary Care Nurse Name: Litzy Weinberg RN Position: [facility] RN Member Role: Primary Care Nurse Name: Melanie Garay Position: [facility] RN Member Role: Primary Care Nurse Name: Michelle Akbar [place] Position: [facility] RN Member Role: Primary Care Nurse Name: Saundra Gonzalez Position: [facility] RN Member Role: Primary Care Nurse Name: Sofía Moreno RN Position: [facility] RN Member Role: Primary Care Nurse Name: Sary Tong RN Position: [facility] RN Member Role: Primary Care Nurse Name: Sophia Lomas RN Position: [facility] RN Member Role: Primary Care Nurse Name: Danielito Woo RN Position: [facility] Bridge Worker Apprentice Member Role: Primary Care Nurse Care Team Related Persons Name: TINY STEPHENS Address: home [address], [place] Name: FERNIE CUMMINS Address: home [address] [place], [place] Name: TINY CUMMINS Address: home [address] [place], [place]
--- OUTSIDE RECORDS SUMMARY | 2023-10-18 20:41 | XMS_ITS | Continuity of Care Document ---
Author Name Unknown Organization [facility] Address [address] [place] [address]- Care Team Providers Care Sales Lead Name Role Phone Roberto CH, Efra Miramontes Primary Care Physician Encounter [facility] [place] Date(s): 02/09/20 - 02/16/20 [facility] [address] [place] [address]- [facility] Attending Physician: Not on Staff, Attending MD Allergies, Adverse Reactions, Alerts Substance Reaction [...] acel(Tdap) 7 03/05/11 Given 1Result Comment: [07/31/2018] [facility] [place]# [id number] 2Result Comment: [08/26/2015] done at [facility] [...] 12/02/2009:56:00 EDT, Aerosol, Route to Pharmacy Electronically, [id number], [facility]/pharmacy #[id number], 180.3, cm, 11/12/19 15:07:00 EST, [...] 1 Refills, Maintenance, 11/12/19 10:02:00 EST, Gel, [facility]/pharmacy #2339, 180.3, cm, 11/12/19 8:43:00 EST, [...] Maintenance, 07/02/16 16:06:12, Route to Pharmacy Electronically, [id number], [facility] Start Date: [...] 5 Refills, Maintenance, 10/22/19 10:55:00 EST, Tablet, [facility]/pharmacy #2339, 180.3, cm, 10/22/19 10:14:00 EST, Height, 118.5, kg, 05/12/19 10:33:00 EDT, Dry Weight Start Date: 10/22/19 Status: Ordered ibuprofen 800 mg oral tablet 800 mg, 1, tablet, By Mouth, Every 8 hours, PRN, # 90 tablet, Refills 0, Tot. Refills 0, Maintenance, as needed for pain, 04/10/19 17:13:55 EDT, Route to Pharmacy Electronically, [id number], [facility] #[facility] Start Date: [...] 5 Refills, Maintenance, 01/12/20 14:27:00 EDT, Tablet, [facility]/pharmacy #2339, 180.3, cm, 01/12/20 13:41:00 EDT, Height, 120.7, kg, 11/03/19 13:31:00EST, Dry Weight Start Date: 01/12/20 Status: Ordered Lantus Solostar Pen 100 units/mL subcutaneous solution = 60 units, Subcutaneous Injection, 2 times a day, # 15 mL, 5 Refills, Maintenance, 01/19/20 15:07:00 EDT, Solution, [facility]/pharmacy #2339, 180.3, cm, 01/19/20 14:07:00 EDT, [...] 01/20/18 13:36:03 EDT, Route to Pharmacy Electronically, [id number], [facility] Start Date: 01/20/18 Stop Date: 01/15/19 Status: Ordered Mavyret 100 mg-40 mg oral tablet 3 tablet, By Mouth, Daily, x 8 weeks, # 84 tablet, 1 Refills, Maintenance, 02/05/20 14:18:00 EDT, Tablet, [facility], 3 tablet By [...] 11/12/19 15:56:00 EST, Route to Pharmacy Electronically, [facility]/pharmacy #2339, 180.3, cm, 11/12/19 15:07:00 EST, [...] Weight Start Date: 08/27/19 Status: Ordered Pen [place], 29 G x 12.7 mm BD Ultra [...]
--- OUTSIDE RECORDS SUMMARY | 2023-10-18 20:41 | XMS_ITS | Continuity of Care Document ---
Author Name Unknown Organization [facility] Address [address] [place] [address]- Care Team Providers Care Shear Operator Helper Name Role Phone Efra Mejia MD Primary Care Physician Encounter [facility] [place] Date(s): 06/21/20 - 06/28/20 [facility] [address] [place] [address]- [facility] Encounter Diagnosis Diabetic nephropathy(Discharge Diagnosis) - 06/21/20 Hypothyroidism(Discharge Diagnosis) - 06/21/20 Moderate recurrent major depression(Discharge Diagnosis) - 06/21/20 Urinary frequency(Discharge Diagnosis) - 06/21/20 Knee effusion, left(Discharge Diagnosis) - 06/21/20 Attending Physician: Efra Mejia MD Allergies, Adverse [...] Comment: [07/31/2018] [facility]# [id number] 2Result Comment: [08/26/2015] done at [facility] [...] 12/02/2009:56:00 EDT, Aerosol, Route to Pharmacy Electronically, [id number], [facility]/pharmacy #2339, 180.3, cm, 11/12/19 15:07:00 [...] Maintenance, 07/02/16 16:06:12, Route to Pharmacy Electronically, [id number], [facility] Start Date: [...] Pharmacy Electronically, [facility]/pharmacy #0693, 180.3, cm, 05/31/20 14:08:00 EDT, Height, 120.7, kg, 11/03/19 13:31:00 EST,... Start Date: 05/31/20 Status: Ordered ibuprofen 800 mg oral tablet 800 mg, 1, tablet, By Mouth, Every 8 hours, PRN, # 90 tablet, Refills 0, Tot. Refills 0, Maintenance, as needed for pain, 04/10/19 17:13:55 EDT, Route to Pharmacy Electronically, [id number], [facility] #[facility] Start Date: [...] Maintenance, 05/31/20 14:57:00 EDT, Solution, [facility]/pharmacy #0693, 180.3, cm, 05/31/20 14:08:00 EDT, Height, 120.7, kg, 11/03/19 13:31:00 EST, Dry Weight Start Date: 05/31/20 Status: Ordered levothyroxine 0.112 mg oral tablet 2 tablet = 224 mcg, By Mouth, Daily, # 60 tablet, 5 Refills, Maintenance, 06/21/20 14:29:00 EDT, Tablet, [facility]/pharmacy #0693, 180.3, cm, 06/21/20 13:42:00 EDT, Height, 120.7, kg, 11/03/19 13:31:00 EST, Dry Weight Start Date: 06/21/20 Stop Date: 12/18/20 Status: Ordered lisinopril 20 mg oral tablet 20 mg, 1, tablet, By Mouth, Daily, # 90 tablet, Refills 3, Tot. Refills 3, Maintenance, 06/21/20 14:29:00 EDT, Route to Pharmacy Electronically, [facility]/pharmacy #0693, 180.3, cm, 06/21/20 13:42:00 EDT, Height, 120.7, kg, 11/03/19 13:31:00 EST, Dry Weight Start Date: 06/21/20 Stop Date: 06/16/21 Status: Ordered Mavyret 100 mg-40 mg oral tablet 3 tablet, By Mouth, Daily, x 8 weeks, # 84 tablet, 1 Refills, Maintenance, 02/05/20 14:18:00 EDT, Tablet, [facility], 3 tablet By [...] 06/21/20 14:32:00 EDT, REC Powder, [facility]/pharmacy #0693, 17 Gm By Mouth [...] Maintenance, 05/26/20 17:50:00 EDT, ECCapsule, [facility]/pharmacy #0693, 180.3, cm, 05/06/20 16:07:00 EDT, Height, 120.7, kg, 11/03/19 13:31:00EST, Dry Weight Start Date: 05/26/20 Status: Ordered Pen [place], 29 G x 12.7 mm BD Ultra [...] Clinical Service Informant Diabetic nephropathy Discharge Diagnosis 06/21/20 Hypothyroidism Discharge Diagnosis 06/21/20 Moderate recurrent major depression Discharge Diagnosis 06/21/20 Urinary frequency Discharge Diagnosis 06/21/20 Knee effusion, left Discharge Diagnosis 06/21/20 Vital Signs Most recent to oldest [Reference Range]: 1 Height 180.3 cm (06/21/20 1:42 PM) Oxygen Saturation [94-100 %] 95 % (06/21/20 1:42 PM) Pulse Rate [55-90 bpm] 69 bpm (06/21/20 1:42 PM) Blood Pressure [90-138/55-84 mm Hg] 124/ 80mm Hg (06/21/20 1:42 PM) Blood pressure sites Arm, left (06/21/20 1:42 PM) Social History Social History Type Response Tobacco Other: 3 cigars brenden y. Sex Male
--- OUTSIDE RECORDS SUMMARY | 2023-10-18 20:41 | XMS_ITS | Continuity of Care Document ---
Author Name Unknown Organization [facility] Address [address] [facility], [address] d Floor, [address] [place] [address]- Care Team Providers Care Senior Grants Officer Name Role Phone Efra Mejia MD Primary Care Physician Encounter [facility] [place] Date(s): 06/06/23 - 07/06/23 [facility] [address], [address], [address] [place] [id number] Attending Physician: Bobby Sandoval Admitting Physician: AdmtrBobby Referring Physician: Admtr, Ar8 Allergies, Adverse Reactions, Alerts No Known Allergies Immunizations Given and Recorded Vaccine Date Status Refusal Reason SARS-CoV-2 mRNA (ajfemdx-gich-kcxxa) vax 04/27/22 Recorded influenza virus vaccine, inactivated [...] Comment: [facility]#[id number] 2Result Comment: [07/31/2018] [facility]# [id number] 3Result Comment: [08/26/2015] done at [facility] [...] AM, 0 Refills, Maintenance, 07/14/21 14:22:00 EDT, [place], Partial fill upon patient request if the [...] Refills, Maintenance, 03/27/23 12:47:00 EDT, Tablet, [facility]/pharmacy #[id number], 181.5, cm, 03/07/23 10:11:00 EDT, [...] Start Date: 07/13/21 Status: Ordered nystatin topical 997536 u/gm powder See Instructions, apply to stump 3 x day, # 120 Gm, 5 Refills, Maintenance, 04/23/23 15:43:00 EDT, Powder, [id number], Partial fill upon patient request if the prescription is for a schedule II opioid drug., apply to stump 3 x day, 181.5, cm... Start Date: 04/23/23 Status: Ordered nystatin topical 957875 u/gm powder See Instructions, apply to stump [...] 06/25/23 10:13:00 EDT, [facility]/pharmacy #[id number], [id number], 1.5 films sublingual in AM, 1 film [...] Personnel Name: Cayla Herrera RN Position: [facility] ED RN W/OE and Tasks Member Role: Primary Care Nurse Name: Alka Lee RN Position: [facility] SN RN Member Role: Primary Care Nurse Name: Jaleel Lo RN Position: [facility] RN Member Role: Primary Care Nurse Name: Ivy Smith RN Position: [facility] RN Member Role: Primary Care Nurse Name: Efra Mejia MD Position: [facility] Physician - Primary Care Member Role: PCP Address: Address: [address] [place] [id number] Name: Devorah Johnson RN Position: [facility] RN Member Role: Primary Care Nurse Name: Dustin Chavez RN Position: [facility] RN Member Role: Primary Care Nurse Name: Litzy Weinberg RN Position: [facility] RN Member Role: Primary Care Nurse Name: Melanie Garay Position: [facility] RN Member Role: Primary Care Nurse Name: Yoselyn Patrick RN Position: [facility] RN Member Role: Primary Care Nurse Name: Michelle Akbar [place] Position: [facility] RN Member Role: Primary Care Nurse Name: Saundra Gonzalez Position: [facility] RN Member Role: Primary Care Nurse Name: Sofía Moreno RN Position: [facility] RN Member Role: Primary Care Nurse Name: Sary Tong RN Position: [facility] RN Member Role: Primary Care Nurse Name: Danielito Woo RN Position: [facility] Hospital Caddie Supervisor Member Role: Primary Care Nurse Care Team Related Persons Name: TINY STEPHENS Address: [address], [place] Name: FERNIE CUMMINS Address: [address], [place] Name: TINY CUMMINS Address: [address], [place]
--- OUTSIDE RECORDS SUMMARY | 2023-10-18 20:41 | XMS_ITS | Continuity of Care Document ---
Author Name Unknown Organization [facility] Address [address] [place] [address]- Care Team Providers Care Psych Sales Specialist Name Role Phone Efra Mejia MD Primary Care Physician Encounter [facility] [place] Date(s): 12/03/19 - 12/10/19 [facility] [address] [place] [address]- [facility] Attending Physician: Efra Mejia MD Allergies, Adverse [...] acel(Tdap) 7 03/05/11 Given 1Result Comment: [07/31/2018] [facility]# [id number] 2Result Comment: [08/26/2015] done at [facility] 3Admin Note: VIM 03/17/12 4Admin Note: VIM 04/10/11 5Admin Note: VIS GIVEN 04/10/13 6Admin Note: vis given dated 06/21/09 7Admin Note: VIM 08/03/08 Medications albuterol CFC free 90 mcg/inh inhalation aerosol 1, puffs, Inhalation, 4 times a day, PRN, # 18 Gm, Refills 0, Tot. Refills 0, Maintenance, 12/02/2009:56:00 EDT, Aerosol, Route to Pharmacy Electronically, [id number], [facility]/pharmacy #2339, 180.3, cm, 11/12/19 15:07:00 [...] Maintenance, 07/02/16 16:06:12, Route to Pharmacy Electronically, [id number], [facility] Start Date: [...] 04/10/19 17:13:55 EDT, Route to Pharmacy Electronically, [id number], [facility] Start Date: [...] 5 Refills, Maintenance, 12/03/19 10:59:00 EDT, Solution, [facility]/pharmacy #2339, 180.3, cm, 11/12/19 15:07:00 [...] 01/20/18 13:36:03 EDT, Route to Pharmacy Electronically, [id number], [facility] Start Date: [...] 11/12/19 15:56:00 EST, Route to Pharmacy Electronically, [facility]/pharmacy #2339, 180.3, cm, 11/12/19 15:07:00 [...] Weight Start Date: 08/27/19 Status: Ordered Pen [place], 29 G x 12.7 mm BD Ultra [...]
--- OUTSIDE RECORDS SUMMARY | 2023-10-18 20:41 | XMS_ITS | Continuity of Care Document ---
Author Name Unknown Organization [facility] Address [address] [place] [address]- Care Team Providers Care Outdoor Fitness Trainer Name Role Phone Efra Mejia MD Primary Care Physician [place] [facility] [place](s): 05/09/20 - 06/08/20 [facility] [address] [place] [address]- [facility] Allergies, Adverse Reactions, Alerts Substance [...] 1Result Comment: [07/31/2018] [facility]# [id number] 2Result Comment: [08/26/2015] done at [facility] 3Admin Note: VIM 03/17/12 4Admin Note: VIM 04/10/11 5Admin Note: VIS GIVEN 04/10/13 6Admin Note: vis given dated 06/21/09 7Admin Note: VIM 08/03/08 Medications albuterol CFC free 90 mcg/inh inhalation aerosol 1, puffs, Inhalation, 4 times a day, PRN, # 18 Gm, Refills 0, Tot. Refills 0, Maintenance, 12/02/2009:56:00 EDT, Aerosol, Route to Pharmacy Electronically, [id number], [facility]/pharmacy #2339, 180.3, cm, 11/12/19 15:07:00 [...] Maintenance, 07/02/16 16:06:12, Route to Pharmacy Electronically, [id number], [facility] Start Date: [...] 05/31/20 14:57:00 EDT, Route to Pharmacy Electronically, [facility]/pharmacy #[id number], 180.3, cm, 05/31/20 14:08:00 EDT, Height, 120.7, kg, 11/03/19 13:31:00 EST,... Start Date: 05/31/20 Status: Ordered ibuprofen 800 mg oral tablet 800 mg, 1, tablet, By Mouth, Every 8 hours, PRN, # 90 tablet, Refills 0, Tot. Refills 0, Maintenance, as needed for pain, 04/10/19 17:13:55 EDT, Route to Pharmacy Electronically, [id number], [facility] Start Date: [...] 5 Refills, Maintenance, 05/31/20 14:57:00 EDT, Solution, [facility]/pharmacy #0693, 180.3, cm, 05/31/20 14:08:00 EDT, [...] 01/20/18 13:36:03 EDT, Route to Pharmacy Electronically, [id number], [facility] Start Date: [...] 4 Refills, Maintenance, 05/31/20 14:58:00 EDT, Patch, [facility]/pharmacy #0693, 180.3, cm, 05/31/20 14:08:00 EDT, [...] Weight Start Date: 05/26/20 Status: Ordered Pen [place], 29 G x 12.7 mm BD Ultra [...]
--- OUTSIDE RECORDS SUMMARY | 2023-10-18 20:41 | XMS_ITS | Continuity of Care Document ---
Author Name Unknown Organization [facility] Address [address] [place] [address]- Care Team Providers Care Slip Mixer Name Role Phone Roberto CH, Efra Miramontes Primary Care Physician [phone] [facility]counter [facility] Date(s): 07/24/23 - 08/23/23 [facility] [address] [place], [place] [address] Allergies, Adverse Reactions, Alerts No Known Allergies [...] inactivated 5 08/16/11 Gi raheem SARS-CoV-2 mRNA ([id number]) vax 04/27/22 Recorded zoster vaccine, inactivated 06/11/21 Recorded SARS-CoV-2 (COVID-19) mRNA BNT-162b2 vac 06/11/21 Recorded SARS-CoV-2 (COVID-19) mRNA BNT-162b2 vac 12/04/20 Recorded SARS-CoV-2 (COVID-19) mRNA BNT-162b2 vac 11/13/20 Recorded tetanus/diphtheria/pertussis, acel(Tdap) 05/07/21 Given tetanus/diphtheria/pertussis, acel(Tdap) 6 03/05/11 Given Influenza Virus Vaccine (oldterm) 06/08/19 Recorde d Fluarix (oldterm) 7 08/19/13 Given pneumococcal 23-valent vaccine 8 04/01/12 Given 1Result Comment: [facility]#[id number] 2Result Comment: [07/31/2018] [facility]# [id number] 3Result Comment: [08/26/2015] done at [facility] 4Admin Note: VIM 03/17/12 5Admin Note: [...] [facility]/pharmacy #[id number], 181.5, cm, 06/06/23 16:27:00 EDT, Height, 103, kg, 10/26/22 11:39:00... Start Date: 06/25/23 Stop Date: 12/22/23 Status: Ordered donepezil 10 mg oral tablet 1, tablet, By Mouth, Daily at bedtime, # 90 tablet, Refills 2, Maintenance, 07/26/23 16:19:00 EST, Route to Pharmacy Electronically, [facility]ORE [id number], 181.5, cm, 07/11/23 11:00:00 EDT, Height, 103, kg, 10/26/22 11:39:00 EST, Dry Weight Start Date: 07/26/23 Status: Ordered famotidine 40 mg oral tablet 1 tablet = 40 mg, By Mouth, Daily at bedtime, # 30 tablet, 2 Refills, Maintenance, 08/21/23 14:50:00 EST, Tablet, [facility]/pharmacy [...] Gm, 0 Refills, Maintenance, 07/11/23 13:02:00 EDT, [place], [facility]/pharmacy #[id number], Partial fill upon patient request if the prescription is for a schedule II opioid drug., 2 sprays Nares, Both Daily, 181.5, cm, 07/11/23 1... Start Date: 07/11/23 Status: Ordered fluticasone 50 mcg/inh nasal spray 2 sprays, Nares, Both, Daily in AM, 0 Refills, Maintenance, 07/14/21 14:22:00 EDT, [place], Partial fill upon patient request if [...] [facility]/pharmacy #[id number], override needed for lost prescription, thanks., 181.5, cm, 03/07/23 10:11:0... Start Date: 03/27/23 Status: Ordered levothyroxine 0.2 mg oral tablet 1 tablet = 200 mcg, By Mouth, Daily, # 30 tablet, 5 Refills, Maintenance, 07/14/23 18:02:00 EDT, Tablet, [facility]/pharmacy #[id number], dose reduction, 181.5, cm, [...] Start Date: 07/13/21 Status: Ordered nystatin topical 651045 u/gm powder See Instructions, apply to stump 3 x day, # 120 Gm, 5 Refills, Maintenance, 04/23/23 15:43:00 EDT, Powder, [facility]/pharmacy #[id number], Partial fill upon patient request if the prescription is for a schedule II opioid drug., apply to stump 3 x day, 181.5, cm... Start Date: 04/23/23 Status: Ordered nystatin topical 857375 u/gm powder See Instructions, apply to stump [...] Refills, Maintenance, 06/25/23 10:13:00 EDT, [id number], [id number], 1.5 films sublingual in AM, 1 film [...] Team Personnel Name: Cayla Herrera RN Position: [facility] ED RN W/OE and Tasks Member Role: Primary Care Nurse Name: Alka Lee RN Position: [facility] RN Member Role: Primary Care Nurse Name: Jaleel Lo RN Position: [facility] RN Member Role: Primary Care Nurse Name: Ivy Smith RN Position: [facility] RN Member Role: Primary Care Nurse Name: Efra Mejia MD Position: [facility] Physician - Primary Care Member Role: PCP Address: Address: [address] [place] [address] Name: Devorah Johnson RN Position: [facility] RN Member Role: Primary Care Nurse Name: Dustin Chavez RN Position: [facility] RN Member Role: Primary Care Nurse Name: Litzy Weinberg RN Position: [facility] RN Member Role: Primary Care Nurse Name: Melanie Garay Position: [facility] RN Member Role: Primary Care Nurse Name: Yoselyn Patrick RN Position: [facility] RN Member Role: Primary Care Nurse Name: Michelle Akbar [place] Position: [facility] RN Member Role: Primary Care Nurse Name: Saundra Gonzalez Position: [facility] RN Member Role: Primary Care Nurse Name: Sofía Moreno RN Position: [facility] RN Member Role: Primary Care Nurse Name: Sary Tong RN Position: [facility] RN Member Role: Primary Care Nurse Name: Danielito Woo RN Position: [facility] Hospital Plant Physiology Teacher Member Role: Primary Care Nurse Care Team Related Persons Name: TINY STEPHENS Address: home [address] [place] [id number] Name: FERNIE CUMMINS Address: [address] [place] [address] Name: TINY CUMMINS Address: [address] [place] [address]
--- OUTSIDE RECORDS SUMMARY | 2023-10-18 20:41 | XMS_ITS | Continuity of Care Document ---
Author Name Unknown Organization [facility] Address [address] [place] [address]- Care Team Providers Care Compositor Apprentice Name Role Phone Roberto CH, Efra Miramontes Primary Care Physician Encounter [facility] Date(s): 04/05/22 - 05/05/22 [facility] [address] [place], [place] [address] Allergies, Adverse Reactions, Alerts No Known [...] 04/01/12 Given 1Result Comment: [facility]#[id number] 2Result Comment: [07/31/2018] [facility]# [id number] 3Result Comment: [08/26/2015] done at [facility] 4Admin Note: VIM 03/17/12 5Admin Note: VIM 04/10/11 6Admin Note: VIM 08/03/08 7Admin Note: VIS GIVEN 04/10/13 8Admin Note: vis given dated 06/21/09 Medications donepezil 5 mg oral tablet 1, tablet, By Mouth, Daily, # 90 tablet, Refills 1, Route to Pharmacy Electronically, [facility]ORE [id number], 181.5, cm, 09/28/21 12:39:00 EST, Height, 105, [...] 0 Refills, Maintenance, 07/14/21 14:22:00 EDT, [place], Partial fill upon patient request if the [...] 03/22/22 15:36:00 EDT, Route to Pharmacy Electronically, [facility]/pharmacy #[id number], Partial fill upon patient request if the prescription is for a schedule II... Start Date: 03/22/22 Status: Ordered Iodosorb 0.9% topical gel See Instructions, Continue wound care with iodosorb gel and 2x2 dressing daily to small wound Betadine pain to incision, # 1 each, 0 Refills, Maintenance, 09/28/21 18:43:00 EST, [facility]/pharmacy #[id number], Partial fill upon patient request if the prescripti... Start Date: 09/28/21 Status: Ordered levothyroxine 0.112 mg oral tablet 2 tablet = 224 mcg, By Mouth, Daily, # 60 tablet, 2 Refills, Maintenance, 03/22/22 13:10:00 EDT, Tablet, [facility]/pharmacy #[id number], 181.5, cm, 09/28/21 12:39:00 EST, Height, [...] Start Date: 07/13/21 Status: Ordered nystatin topical 696191 u/gm powder See Instructions, apply to stump [...] 2 Refills, Maintenance, 03/22/22 13:10:00 EDT, ECCapsule, [facility]/pharmacy #[id number], 181.5, cm, 09/28/21 12:39:00 EST, Height, [...] 5 Refills, Maintenance, 10/05/21 11:20:00 EST, Solution, [facility]/pharmacy #[id number], Partial fill upon [...]
--- OUTSIDE RECORDS SUMMARY | 2023-10-18 20:41 | XMS_ITS | Continuity of Care Document ---
Author Name Unknown Organization [facility] Address [address] [place] [address]- Care Team Providers Care Hand Nailer Name Role Phone Efra Mejia MD Primary Care Physician [facility] Date[facility]s): 07/20/19 - 09/19/19 [facility] [address] [place] [address]- [facility] Attending Physician: Efra Mejia MD Allergies, [...] Given 1Result Comment: [07/31/2018] [facility]# [id number] 2Result Comment: [08/26/2015] done at [facility] 3Admin Note: VIM 03/17/12 4Admin Note: [...] Maintenance, 07/02/16 16:06:12, Route to Pharmacy Electronically, [id number], [facility] Start Date: [...] 04/10/19 17:13:55 EDT, Route to Pharmacy Electronically, [id number], [facility] Start Date: [...] 01/20/18 13:36:03 EDT, Route to Pharmacy Electronically, [id number], [facility] Start Date: [...] Weight Start Date: 08/27/19 Status: Ordered Pen [place], 29 G x 12.7 mm BD Ultra [...]
--- OUTSIDE RECORDS SUMMARY | 2023-10-18 20:41 | XMS_ITS | Continuity of Care Document ---
Author Name Unknown Organization [facility] Address [address] [facility], [address] Floor, [address] [place] [address]- Care Team Providers Care Algebra Teacher Name Role Phone Roberto CH, Efra Miramontes Primary Care Physician [phone] Encounter [facility] Date(s): 10/11/22 - 11/10/22 [facility] [address], [address], [address] [place] [id number] Attending Physician: Bobby Sandoval Admitting [...] 04/01/12 Given 1Result Comment: [facility]#[id number] 2Result Comment: [07/31/2018] [facility]# [id number] 3Result Comment: [08/26/2015] [facility] 4Admin Note: VIM 03/17/12 5Admin Note: VIM 04/10/11 6Admin Note: VIM 08/03/08 7Admin Note: VIS GIVEN 04/10/13 8Admin Note: vis given dated 06/21/09 Medications ARIPiprazole 5 mg oral tablet 5 mg, 1, tablet, By Mouth, Daily, # 90 tablet, Refills 1, Tot. Refills 1, Maintenance, 09/28/22 8:16:00 EST, Route to Pharmacy Electronically, [facility]/pharmacy #[id number], Partial fill upon patient request ifthe prescription is for a schedule II opioid drug.,... Start Date: 09/28/22 Stop Date: 03/27/23 Status: Ordered citalopram 40 mg oral tablet 40 mg, 1, tablet, By Mouth, Daily, Take with food., # 90 tablet, Refills 1, Tot. Refills 1, Maintenance, 09/28/22 8:16:00 EST, Route to Pharmacy Electronically, [facility]/pharmacy #[id number], 181.5, cm, 08/30/22 16:11:00 EST, Height, 105, kg, 09/26/21 3:23:00 ES... Start Date: 09/28/22 Stop Date: 03/27/23 Status: Ordered donepezil 10 mg oral tablet 10 mg, 1, tablet, By Mouth, Daily at bedtime, # 90 tablet, Refills 2, Tot. Refills 2, Maintenance, 10/11/22 12:01:00 EST, Route to Pharmacy Electronically, [facility]/pharmacy #[id number], Partial fill [...] AM, 0 Refills, Maintenance, 07/14/21 14:22:00 EDT, [employer], Partial fill upon patient request if the [...] 09/17/22 12:54:00 EST, Route to Pharmacy Electronically, [facility]/pharmacy #[id number], Partial fill upon patient request if the prescription is for a schedule II... Start Date: 09/17/22 Status: Ordered levothyroxine 0.112 mg oral tablet 2 tablet = 224 mcg, By Mouth, Daily, # 60 tablet, 2 Refills, Maintenance, 09/05/22 12:50:00 EST, Tablet, [facility]/pharmacy #[id number], 181.5, cm, 08/30/22 16:11:00 EST, [...] Start Date: 07/13/21 Status: Ordered nystatin topical 114779 u/gm powder See Instructions, apply to stump 3 x day, # 120 Gm, 5 Refills, Maintenance, 07/06/21 12:35:00 EDT, Powder, [facility]/pharmacy #[id number], Partial fill [...] in AM, 1 film sublingual in PM [id number], # 75 film, 1 Refills, Maintenance, 09/28/22 8:16:00 EST, [id number], 1.5 films sublingual in AM, 1 film sublingual in PM ; [id number], 181.5, cm, 08/30/22 16:11:... Start Date: 09/28/22 Status: Ordered tamsulosin 0.4 mg oral capsule 0.4 mg, 1, capsule, By Mouth, Daily, # 90 capsule, Refills 3, Tot. Refills 3, Maintenance, 07/06/2111:55:00 EDT, Route to Pharmacy Electronically, [facility]/pharmacy #[id number], Partial fill upon patient request if the [...] Team Personnel Name: Alka Lee RN Position: [facility] RN Member Role: Primary Care Nurse Name: Jaleel Lo RN Position: [facility] RN Member Role: Primary Care Nurse Name: Ivy Smith RN Position: [facility] RN Member Role: Primary Care Nurse Name: Efra Mejia MD Position: [facility] Primary Care Physician Member Role: PCP Address: Address: [address] [place] [address] [id number] Name: Devorah Johnson RN [facility] [...] Care Nurse Name: Michelle Buckley Position: [facility] RN Member Role: Primary Care Nurse Name: Saundra Gonzalez Position: [facility] RN Member Role: Primary Care Nurse Name: Sofía Moreno RN Position: [facility] RN Member Role: Primary Care Nurse Name: Sary Tong RN Position: [facility] RN Member Role: Primary Care Nurse Name: Sophia Lomas RN Position: [facility] RN Member Role: Primary Care Nurse Name: Danielito Woo RN Position: [facility] Subject Member Role: Primary Care Nurse Care Team Related Persons Name: TINY STEPHENS Address: [address] [place] [address] Name: FERNIE CUMMINS Address: [address] [place] [address] Name: TINY CUMMINS Address: [address] [place] [address]
--- OUTSIDE RECORDS SUMMARY | 2023-10-18 20:41 | XMS_ITS | Continuity of Care Document ---
Author Name Unknown Organization [facility] Address [address] [place] [address]- Care Team Providers Care Folded Towel Machine Operator Name Role Phone Efra Mejia MD Primary Care Physician Encounter [facility] Date(s): 08/04/19 - 11/21/19 [facility] [address] [place] [address] [facility] Attending Physician: Marsha Fallon MD Admitting Physician: Marsha Fallon MD Referring Physician: Efra Mejia MD Allergies, [...] 1Result Comment: [07/31/2018] [facility]# [id number] 2Result Comment: [08/26/2015] done at [facility] 3Admin Note: VIM 03/17/12 4Admin Note: VIM [...] Maintenance, 07/02/16 16:06:12, Route to Pharmacy Electronically, [id number], [facility] Start Date: [...] 5 Refills, Maintenance, 10/22/19 10:55:00 EST, Tablet, [facility]/pharmacy #2339, 180.3, cm, 10/22/19 10:14:00 EST, Height, 118.5, kg, 05/12/19 10:33:00 EDT, Dry Weight Start Date: 10/22/19 Status: Ordered ibuprofen 800 mg oral tablet 800 mg, 1, tablet, By Mouth, Every 8 hours, PRN, # 90 tablet, Refills 0, Tot. Refills 0, Maintenance, as needed for pain, 04/10/19 17:13:55 EDT, Route to Pharmacy Electronically, [id number], [facility] Start Date: [...] 5 Refills, Maintenance, 11/17/19 8:28:00 EST, Solution, [facility]/pharmacy #2339, 180.3, cm, 11/12/19 15:07:00 EST, [...] 01/20/18 13:36:03 EDT, Route to Pharmacy Electronically, [id number], [facility] Start Date: [...] 11/12/19 15:56:00 EST, Route to Pharmacy Electronically, [facility]/pharmacy #2339, 180.3, cm, 11/12/19 15:07:00 EST, [...] Weight Start Date: 08/27/19 Status: Ordered Pen [place], 29 G x 12.7 mm BD Ultra [...]
--- OUTSIDE RECORDS SUMMARY | 2023-10-18 20:41 | XMS_ITS | Continuity of Care Document ---
Author Name Unknown Organization [facility] Address [address] [place] [address]- Care Team Providers Care Blade Bender Furnace Tender Name Role Phone Efra Mejia MD Primary Care Physician Encounter [facility] Date(s): 05/28/23 - 06/27/23 [facility] [address] [place] [address]- Allergies, Adverse Reactions, Alerts No Known Allergies Immunizations Given and Recorded Vaccine Date Status Refusal Reason SARS-CoV-2 mRNA (mgmycbs-tbws-kovze) vax 04/27/22 Recorded influenza virus vaccine, inactivated [...] 23-valent vaccine 8 04/01/12 Given 1Result Comment: [facility]#[id number] 2Result Comment: [07/31/2018] [facility]# [id number] 3Result Comment: [08/26/2015] done at [facility] 4Admin Note: VIM 03/17/12 5Admin Note: VIM 04/10/11 6Admin Note: VIM 08/03/08 7Admin Note: VIS GIVEN 04/10/13 8Admin Note: vis given dated 06/21/09 Medications ARIPiprazole 5 mg oral tablet 5 mg, 1, tablet, By Mouth, Daily, # 90 tablet, Refills 1, Tot. Refills 1, Maintenance, 03/01/23 10:12:00 EDT, Route to Pharmacy Electronically, [facility]/pharmacy #[id number], Partial fill upon patient request [...] 10/11/22 12:01:00 EST, Route to Pharmacy Electronically, [facility]/pharmacy #[id number], Partial fill upon patient request [...] AM, 0 Refills, Maintenance, 07/14/21 14:22:00 EDT, [place], Partial fill upon patient request if the [...] 03/27/23 17:30:00 EDT, Route to Pharmacy Electronically, [facility]/pharmacy #[id number], override needed for lost prescription, thanks., 181.5, cm, 03/07/23 10:11:0... Start Date: 03/27/23 Status: Ordered levothyroxine 0.112 mg oral tablet 2 tablet = 224 mcg, By Mouth, Daily, # 60 tablet, 2 Refills, Maintenance, 03/27/23 12:47:00 EDT, Tablet, [facility]/pharmacy #0693, 181.5, cm, 03/07/23 10:11:00 EDT, [...] Start Date: 07/13/21 Status: Ordered nystatin topical 659365 u/gm powder See Instructions, apply to stump 3 x day, # 120 Gm, 5 Refills, Maintenance, 04/23/23 15:43:00 EDT, Powder, [facility]/pharmacy #0693, Partial fill upon patient request if the prescription is for a schedule II opioid drug., apply to stump 3 x day, 181.5, cm... Start Date: 04/23/23 Status: Ordered nystatin topical 172314 u/gm powder See Instructions, apply to stump 3 x day, # 120 Gm, 5 Refills, Maintenance, 07/06/21 12:35:00 EDT, Powder, [facility]/pharmacy #0693, Partial fill upon patient request if the prescription is for a schedule II opioid drug., apply to stump 3 x day, 180, cm,... Start Date: 07/06/21 Status: Ordered omeprazole 20 mg oral enteric coated capsule 1 capsule = 20 mg, By Mouth, Daily, # 30 capsule, 5 Refills, Maintenance, 01/30/23 13:42:00 EDT, ECCapsule, [facility]/pharmacy #0693, 181.5, cm, 10/26/22 11:39:00 EST, Height, 103, kg, 10/26/22 11:39:00 EST, Dry Weight Start Date: 01/30/23 Status: Ordered prazosin 2 mg oral capsule 1 capsule = 2 mg, By Mouth, Daily at bedtime, dose reduction, # 90 capsule, 1 Refills, Maintenance,06/25/23 10:14:00 EDT, Capsule, [facility]/pharmacy #0693, Partial fill upon patient request if the prescription is for a schedule II opioid drug., 181.5, cm,... Start Date: 06/25/23 Stop Date: 12/22/23 Status: Ordered ramelteon 8 mg oral tablet 1 tablet = 8 mg, By Mouth, Daily at bedtime, # 90 tablet, 1 Refills, Maintenance, 06/25/23 10:14:00EDT, Tablet, [facility]/pharmacy #0693, Partial fill upon patient request [...] film, 0 Refills, Maintenance, 06/25/23 10:13:00 EDT, [facility]/pharmacy #0693, [id number], 1.5 films sublingual in AM, 1 film sublingual in PM, 181.5, cm, 06/06/23 16:27:00 EDT, .. Start Date: 06/25/23 Status: Ordered tamsulosin 0.4 mg oral capsule 0.4 mg, 1, capsule, By Mouth, Daily, # 90 capsule, Refills 3, Tot. Refills 3, Maintenance, 12/20/2315:00:00 EDT, Route to Pharmacy Electronically, [facility]/pharmacy #0653, Partial fill upon patient request if the [...] Team Personnel Name: Cayla Herrera RN Position: [facility] ED RN W/OE and Tasks Member Role: Primary Care Nurse Name: Alka Lee RN Position: [facility] RN Member Role: Primary Care Nurse Name: Jaleel Lo RN Position: S RN Member Role: Primary Care Nurse Name: Ivy Smith RN Position: [facility] RN Member Role: Primary Care Nurse Name: Efra Mejia MD Position: [facility] Physician - Primary Care Member Role: PCP Address: Address: [address] [place] [id number] Name: Devorah Johnson RN Position: [facility] RN Member Role: Primary Care Nurse Name: Dustin Chavez RN Position: [facility] RN Member Role: Primary Care Nurse Name: Litzy Weinberg RN Position: [facility] RN Member Role: Primary Care Nurse Name: Melanie Garay Position: [facility] RN Member Role: Primary Care Nurse Name: Yoselyn Patrick RN Position: [facility] RN Member Role: Primary Care Nurse Name: Michelle Akbar [place] Position: [facility] RN Member Role: Primary Care Nurse Name: Saundra Gonzalez Position: [facility] RN Member Role: Primary Care Nurse Name: Sofía Moreno RN Position: [facility] RN Member Role: Primary Care Nurse Name: Sary Tong RN Position: [facility] RN Member Role: Primary Care Nurse Name: Danielito Woo RN Position: [facility] Senior Process Analyst Member Role: Primary Care Nurse Care Team Related Persons Name: PHILIPTINY CORRAL Address: home [address] [place], [place] Name: FERNIE CUMMINS Address: [address] [place], [place] Name: TINY CUMMINS Address: home [address] [place], [place]
--- OUTSIDE RECORDS SUMMARY | 2023-10-18 20:41 | XMS_ITS | Continuity of Care Document ---
Author Name Unknown Organization [facility] Address [address] [place] [address]- Care Team Providers Care Planting Supervisor Name Role Phone Efra Mejia MD Primary Care Physician [phone] [place] [facility] [place] 07/12/20 - 07/19/20 [facility] [address] [place] [address]- [facility] Encounter Diagnosis Cognitive change(Discharge Diagnosis) - 07/12/20 Opioid dependence on agonist therapy(Discharge Diagnosis) - 07/12/20 Hypothyroidism(Discharge Diagnosis) - 07/12/20 Attending Physician: Efra Mejia MD Allergies, Adverse [...] 03/05/11 Given 1Result Comment: [07/31/2018] [facility]# [id number] 2Result Comment: [08/26/2015] done at [facility] 3Admin Note: VIM 03/17/12 4Admin Note: VIM 04/10/11 5Admin Note: VIS GIVEN 04/10/13 6Admin Note: vis given dated 06/21/09 7Admin Note: VIM 08/03/08 Medications albuterol CFC free 90 mcg/inh inhalation aerosol 1, puffs, Inhalation, 4 times a day, PRN, # 18 Gm, Refills 0, Tot. Refills 0, Maintenance, 12/02/2009:56:00 EDT, Aerosol, Route to Pharmacy Electronically, [id number], [facility]/pharmacy #[id number], 180.3, cm, 11/12/19 [...] Maintenance, 07/02/16 16:06:12, Route to Pharmacy Electronically, [id number], [facility] #[id number] Start Date: [...] 07/12/20 15:44:00 EDT, Route to Pharmacy Electronically, [facility]/pharmacy #[id number], 183, cm, 07/12/20 14:47:00 EDT, Height, [...] Refills, Maintenance, 05/31/20 14:57:00 EDT, Solution, [facility]/pharmacy #[id number], 180.3, cm, 05/31/20 14:08:00 EDT, Height, 120.7, kg, 11/03/19 13:31:00 EST, Dry Weight Start Date: 05/31/20 Status: Ordered levothyroxine 0.112 mg oral tablet 2 tablet = 224 mcg, By Mouth, Daily, # 60 tablet, 5 Refills, Maintenance, 07/10/20 12:51:00 EDT, Tablet, [facility]/pharmacy #[id number], 183, cm, 07/10/20 3:29:00 [...] 1 Refills, Maintenance, 02/05/20 14:18:00 EDT, Tablet, [facility], 3 tablet By Mouth Daily,Instr:x 8 weeks, 180.3, cm, 01/19/20 14:07:00 EDT, Height, 120.7, kg, 11/03/19 13:31:00 EST,... Start Date: 02/05/20 Status: Ordered melatonin 5 mg oral capsule 1 capsule = 5 mg, By Mouth, Daily at bedtime, # 30 capsule, 2 Refills, Maintenance, 07/10/20 12:51:00 EDT, [facility]/pharmacy #[id number], 183, cm, 07/10/20 3:29:00 [...] Mouth Daily,Instr:dissolve in water beforetaking, 180.3, cm, 10/06/20 13:42:00 EDT, Height, 1... Start Date: 06/21/20 Status: Ordered Nicoderm C-Q 21 mg/24 hr transdermal film, extended release 1 patch, Topically, Daily, # 30 patch, 4 Refills, Maintenance, 05/31/20 14:58:00 EDT, Patch, [facility]/pharmacy #[id number], 180.3, cm, 05/31/20 14:08:00 EDT, Height, 120.7, kg, 11/03/19 13:31:00 EST, Dry Weight Start Date: 05/31/20 Stop Date: 10/28/20 Status: Ordered omeprazole 20 mg oral enteric coated capsule 1 capsule = 20 mg, By Mouth, Daily, # 30 capsule, 5 Refills, Maintenance, 05/26/20 17:50:00 EDT, ECCapsule, [facility]/pharmacy #[id number], 180.3, cm, 05/06/20 16:07:00 EDT, Height, 120.7, kg, 11/03/19 13:31:00EST, Dry Weight Start Date: 05/26/20 Status: Ordered Pen Traphill, 29 G x 12.7 mm BD Ultra Fine See Instructions, # 1 box, Refills 3, Tot. Refills 3, Maintenance, use with NOvolog Pen injection twice daily, 06/18/19 9:42:43 EDT, Compound Start Date: 06/18/19 Status: Ordered tamsulosin 0.4 mg oral capsule 0.4 mg, 1, capsule, By Mouth, Daily, # 30 capsule, Refills 11, Tot. Refills 11, Maintenance, 07/05/20 16:10:00 EDT, Route to Pharmacy Electronically, [facility]/pharmacy #[id number], 180.3, cm, 06/21/20 13:42:00 EDT, Height, 120.7, kg, 11/03/19 13:31:00 EST, Dry W... Start Date: 07/05/20 Status: Ordered traZODone 50 mg oral tablet 25 mg, By Mouth, Daily at bedtime, PRN, # 30 tablet, Refills 1, Tot. Refills 1, Maintenance, Insomnia, 07/10/20 12:52:00 EDT, Route to Pharmacy Electronically, [facility]/pharmacy #[id number], 183, cm, 07/10/20 3:29:00 [...] Effective Dates Health Status Clinical Service Informant Cognitive change Discharge Diagnosis 07/12/20 Opioid dependence on agonist therapy Discharge Diagnosis 07/12/20 Hypothyroidism Discharge Diagnosis 07/12/20 Vital Signs Most recent to oldest [Reference Range]: 1 Height 183 cm (07/12/20 2:47 PM) Weight 123.8 kg (07/12/20 2:47 PM) Oxygen Saturation [94-100 %] 97 % (07/12/20 2:47 PM) Pulse Rate [55-90 bpm] 77 bpm (07/12/20 2:47 PM) Body Mass Index [18.5-24.99] 36.97 *>HHI* (07/12/20 2:47 PM) Blood Pressure [90-138/55-84 mm Hg] 108/ 72mm Hg (07/12/20 2:47 PM) Blood pressure sites Arm, left (07/12/20 2:47 PM) Weight Obtained Via Standing scale (07/12/20 2:47 PM) Social History Social History Type Response Tobacco Other: 3 cigars brenden y. Sex Male
--- OUTSIDE RECORDS SUMMARY | 2023-10-18 20:41 | XMS_ITS | Continuity of Care Document ---
Author Name Unknown Organization [facility] Address [address] [place] [address]- Care Team Providers Care Mill Turner Name Role Phone Efra Mejia MD Primary Care Physician [phone] Encounter [facility] Date(s): 07/09/23 - 08/08/23 [facility] [address] [place] [address]- Allergies, Adverse Reactions, Alerts No Known Allergies [...] inactivated 5 08/16/11 Gi raheem SARS-CoV-2 mRNA ([id number]) vax 04/27/22 Recorded zoster vaccine, inactivated 06/11/21 Recorded SARS-CoV-2 (COVID-19) mRNA BNT-162b2 vac 06/11/21 Recorded SARS-CoV-2 (COVID-19) mRNA BNT-162b2 vac 12/04/20 Recorded SARS-CoV-2 (COVID-19) mRNA BNT-162b2 vac 11/13/20 Recorded tetanus/diphtheria/pertussis, acel(Tdap) 05/07/21 Given tetanus/diphtheria/pertussis, acel(Tdap) 6 03/05/11 Given Influenza Virus Vaccine (oldterm) 06/08/19 Recorde d Fluarix (oldterm) 7 08/19/13 Given pneumococcal 23-valent vaccine 8 04/01/12 Given 1Result Comment: [facility]#[id number] 2Result Comment: [07/31/2018] [facility]# [id number] 3Result Comment: [08/26/2015] done at [facility] 4Admin Note: VIM 03/17/12 5Admin Note: VIM 04/10/11 6Admin Note: VIM 08/03/08 7Admin Note: VIS GIVEN 04/10/13 8Admin Note: vis given dated 06/21/09 Medications ARIPiprazole 5 mg oral tablet 5 mg, 1, tablet, By Mouth, Daily, # 90 tablet, Refills 1, Tot. Refills 1, Maintenance, 03/01/23 10:12:00 EDT, Route to Pharmacy Electronically, [facility]/pharmacy #[id number], Partial fill upon patient [...] 06/25/23 10:14:00 EDT, Route to Pharmacy Electronically, [facility]/pharmacy #[id number], 181.5, cm, 06/06/23 16:27:00 EDT, Height, 103, kg, 10/26/22 11:39:00... Start Date: 06/25/23 Stop Date: 12/22/23 Status: Ordered donepezil 10 mg oral tablet 1, tablet, By Mouth, Daily at bedtime, # 90 tablet, Refills 2, Maintenance, 07/26/23 16:19:00 EST, Route to Pharmacy Electronically, [id number], 181.5, cm, 07/11/23 11:00:00 EDT, Height, 103, kg, 10/26/22 11:39:00 EST, Dry Weight Start Date: 07/26/23 Status: Ordered famotidine 40 mg oral tablet 1 tablet = 40 mg, By Mouth, Daily at bedtime, # 30 tablet, 0 Refills, Maintenance, 07/11/23 13:01:00 EDT, Tablet, [facility]/pharmacy #[id number], Partial fill upon patient [...] Gm, 0 Refills, Maintenance, 07/11/23 13:02:00 EDT, [place], [facility]/pharmacy #[id number], Partial fill upon patient request if the prescription is for a schedule II opioid drug., 2 sprays Nares, Both Daily, 181.5, cm, 07/11/23 1... Start Date: 07/11/23 Status: Ordered fluticasone 50 mcg/inh nasal spray 2 sprays, Nares, Both, Daily in AM, 0 Refills, Maintenance, 07/14/21 14:22:00 EDT, [place], Partial fill upon patient request if the [...] 03/27/23 17:30:00 EDT, Route to Pharmacy Electronically, [facility]/pharmacy #[id number], override needed for lost prescription, thanks., 181.5, cm, 03/07/23 10:11:0... Start Date: 03/27/23 Status: Ordered levothyroxine 0.112 mg oral tablet 2 tablet = 224 mcg, By Mouth, Daily, for 30 days, # 60 tablet, 0 Refills, Hard Stop 08/09/23 12:54:00 EST, 07/10/23 12:54:00 EDT, Tablet, [facility]/pharmacy #[id number], 181.5, cm, 06/06/23 16:27:00 EDT, Height,103, kg, 10/26/22 11:39:00 EST, Dry Weight Start Date: 07/10/23 Stop Date: 08/09/23 Status: Ordered levothyroxine 0.2 mg oral tablet 1 tablet = 200 mcg, By Mouth, Daily, # 30 tablet, 5 Refills, Maintenance, 07/14/23 18:02:00 EDT, Tablet, [facility]/pharmacy #[id number], dose reduction, 181.5, cm, [...] Start Date: 07/13/21 Status: Ordered nystatin topical 299377 u/gm powder See Instructions, apply to stump 3 x day, # 120 Gm, 5 Refills, Maintenance, 04/23/23 15:43:00 EDT, Powder, [facility]/pharmacy #[id number], Partial fill upon patient request if the prescription is for a schedule II opioid drug., apply to stump 3 x day, 181.5, cm... Start Date: 04/23/23 Status: Ordered nystatin topical 329273 u/gm powder See Instructions, apply to stump [...] capsule, 1 Refills, Maintenance,06/25/23 10:14:00 EDT, Capsule, [facility]/pharmacy #[id number], Partial fill upon patient request if the prescription is for a schedule II opioid drug., 181.5, cm,... Start Date: 06/25/23 Stop Date: 12/22/23 Status: Ordered ramelteon 8 mg oral tablet 1 tablet = 8 mg, By Mouth, Daily at bedtime, # 90 tablet, 1 Refills, Maintenance, 06/25/23 10:14:00EDT, Tablet, [facility]/pharmacy #[id number], Partial fill upon patient [...] film, 0 Refills, Maintenance, 06/25/23 10:13:00 EDT, [facility]/pharmacy #[id number], [id number], 1.5 films sublingual in AM, 1 film sublingual in PM, 181.5, cm, 06/06/23 16:27:00 EDT, He.. Start Date: 06/25/23 Status: Ordered tamsulosin 0.4 mg oral capsule 0.4 mg, 1, capsule, By Mouth, Daily, # 90 capsule, Refills 3, Tot. Refills 3, Maintenance, 12/20/2315:00:00 EDT, Route to Pharmacy Electronically, [facility]/pharmacy #[id number], Partial fill upon patient [...] Team Personnel Name: Cayla Herrera RN Position: [facility] ED RN W/OE and Tasks Member Role: Primary Care Nurse Name: Alka Lee RN Position: [facility] SN RN Member Role: Primary Care Nurse Name: Jaleel Lo RN Position: [facility] RN Member Role: Primary Care Nurse Name: Ivy Smith RN Position: [facility] RN Member Role: Primary Care Nurse Name: Efra Mejia MD Position: [facility] Physician - Primary Care Member Role: PCP Address: Address: [address] [place] [address] Name: Devorah Johnson RN Position: [facility] RN Member Role: Primary Care Nurse Name: Dustin Chavez RN Position: [facility] RN Member Role: Primary Care Nurse Name: Litzy Weinberg RN Position: [facility] RN Member Role: Primary Care Nurse Name: Melanie Garay Position: [facility] RN Member Role: Primary Care Nurse Name: Yoselyn Patrick RN Position: [facility] RN Member Role: Primary Care Nurse Name: Michelle Akbar [place] Position: [facility] RN Member Role: Primary Care Nurse Name: Saundra Gonzalez Position: [facility] RN Member Role: Primary Care Nurse Name: Sofía Moreno RN Position: [facility] RN Member Role: Primary Care Nurse Name: Sary Tong RN Position: [facility] RN Member Role: Primary Care Nurse Name: Danielito Woo RN Position: [facility] Hospital Plumbing Foreman Member Role: Primary Care Nurse Care Team Related Persons Name: TINY STEPHENS Address: home [address] [place], [place] Name: FERNIE CUMMINS Address: home [address], [place] Name: TINY CUMMINS Address: home [address], [place]
--- OUTSIDE RECORDS SUMMARY | 2023-10-18 20:41 | XMS_ITS | Continuity of Care Document ---
Author Name Unknown Organization [facility] Address [address] [place] [address]- Care Team Providers Care Deputy County Counsel Name Role Phone Efra Mejia MD Primary Care Physician Encounter [facility] [place] Date(s): 07/06/21 - 07/13/21 [facility] [address] [place] [address]- Encounter Diagnosis Diabetic nephropathy(Discharge Diagnosis) - 07/06/21 Alzheimer's dementia(Discharge Diagnosis) - 07/06/21 Unintended weight loss(Discharge Diagnosis) - 07/06/21 Hypotension(Discharge Diagnosis) - 07/06/21 Hypogonadism(Discharge Diagnosis) - 07/06/21 Opioid dependence on agonist therapy(Discharge Diagnosis) - 07/06/21 Moderate recurrent major depression(Discharge Diagnosis) - 07/06/21 Attending Physician: Efra Mejia MD Allergies, Adverse [...] Comment: [facility]#[id number] 2Result Comment: [07/31/2018] [facility]# [id number] 3Result Comment: [08/26/2015] done at [facility] 4Admin Note: VIM 03/17/12 5Admin Note: VIM 04/10/11 6Admin Note: VIM 08/03/08 7Admin Note: VIS GIVEN 04/10/13 8Admin Note: vis given dated 06/21/09 Medications donepezil 5 mg oral tablet 5 mg, 1, tablet, By Mouth, Daily, # 30 tablet, Refills 5, Tot. Refills 5, Maintenance, 06/02/21 14:20:00 EDT, Route to Pharmacy Electronically, [facility]/pharmacy #[id number], Partial fill upon patient request if the prescription is for a schedule II opioid drug.... Start Date: 06/02/21 Status: Ordered fluconazole 200 mg oral tablet 1 tablet = 200 mg, By Mouth, Daily, for 10 days, # 10 tablet, 0 Refills, Acute 07/16/21 12:37:00 EDT, 07/06/21 12:37:00 EDT, Tablet, [facility]/pharmacy #[id number], Partial fill upon patient request if the prescription is for a schedule II opioid drug., 180, cm,... Start Date: 07/06/21 Stop Date: 07/16/21 Status: Ordered folic acid 1 mg oral tablet 1 mg, 1, tablet, By Mouth, Daily, # 30 tablet, Refills 0, Maintenance, 07/13/21 22:11:00 EDT, Partial fill upon patient request if the prescription is for a schedule II opioid drug. Start Date: 07/13/21 Status: Ordered levothyroxine 0.112 mg oral tablet 2 tablet = 224 mcg, By Mouth, Daily, # 60 tablet, 5 Refills, Maintenance, 10/27/20 10:22:00 EST, Tablet, [facility]/pharmacy #[id number], 183, cm, 10/27/20 8:41:00 [...] Start Date: 07/13/21 Status: Ordered nystatin topical 302645 u/gm powder See Instructions, apply to stump 3 x day, # 120 Gm, 5 Refills, Maintenance, 07/06/21 12:35:00 EDT, Powder, [facility]/pharmacy #[id number], Partial fill upon patient request if the prescription is for a schedule II opioid drug., apply to stump 3 x day, 180, cm,... Start Date: 07/06/21 Status: Ordered omeprazole 20 mg oral enteric coated capsule 1 capsule = 20 mg, By Mouth, Daily, # 30 capsule, 5 Refills, Maintenance, 10/27/20 10:22:00 EST, ECCapsule, [facility]/pharmacy #[id number], 183, cm, 10/27/20 8:41:00 [...] Maintenance, 07/06/2111:55:00 EDT, Route to Pharmacy Electronically, [facility]/pharmacy #[id number], Partial fill upon patient request if the prescription is for a schedule II opioid d... Start Date: 07/06/21 Status: Ordered Trulicity Pen 0.75 mg/0.5 mL subcutaneous solution 0.5 mL = 0.75 mg, Subcutaneous Injection, Every week, rotate injection sites, # 2 mL, 0 Refills, Maintenance, 07/06/21 12:35:00 EDT, Solution, [facility]/pharmacy #[id number], Partial fill upon [...] Clinical Service Informant Diabetic nephropathy Discharge Diagnosis 07/06/21 Alzheimer's dementia Discharge Diagnosis 07/06/21 Unintended weight loss Discharge Diagnosis 07/06/21 Hypotension Discharge Diagnosis 07/06/21 Hypogonadism Discharge Diagnosis 07/06/21 Opioid dependence on agonist therapy Discharge Diagnosis 07/06/21 Moderate recurrent major depression Discharge Diagnosis 07/06/21 Vital Signs Most recent to oldest [Reference Range]: 1 Height 180 cm (07/06/21 11:43 AM) Weight 90.7 kg (07/06/21 11:43 AM) Oxygen Saturation [94-100 %] 96 % (07/06/21 11:43 AM) Pulse Rate [55-90 bpm] 77 bpm (07/06/21 11:43 AM) Body Mass Index [18.5-24.99] 27.99 *H* (07/06/21 11:43 AM) Blood Pressure [90-138/55-84 mm Hg] 70/5 2mm Hg *L* (07/06/21 11:43 AM) Blood pressure sites Arm, right (07/06/21 11:43 AM) Weight Obtained Via Standing scale (07/06/21 11:43 AM) Social History Social History Type Response Tobacco Other: 3 cigars brenden y. Sex Male
[2023-10-18 20:48] LABS: INTERNATIONAL NORM RATIO 1.1 (0.9-1.1); Prothrombin Time 13.3 SEC (11.1-13.3)
[2023-10-18 20:51] LABS: Partial Thromboplastin Time 40.1 SEC (26.0-36.8)
[2023-10-18 20:57] LABS: Alanine Aminotransferase 8 U/L (0-40); Albumin Level 3.8 g/dL (3.5-5.0); Alkaline Phosphatase 85 U/L (39-117); Anion Gap 13 (12-20); Aspartate Amino Transferase 13 U/L (5-37); Bilirubin Total 0.3 mg/dL (0.0-1.0); Blood Urea Nitrogen 7 mg/dL (9-16); Calcium 9.1 mg/dL (8.4-10.2); Carbon Dioxide 27 mmol/L (22-29); Chloride 105 mmol/L (96-108); Creatinine Clr Calc Pharmacy 133.9; Estimated Glomerular Filt Rate > 60; Glucose Random 109 mg/dL (60-115); Potassium 3.5 mmol/L (3.3-5.1); Sodium 141 mmol/L (135-145)
[2023-10-18 20:58] VITALS: BP 106/62; PULSE 53; RESP 18; O2SAT 93
[2023-10-18 21:52] LABS: OBS1 NEGATIVE (NEGATIVE)
[2023-10-18 21:53] LABS: OBS Int Ctl Valid YES
[2023-10-18 22:17] VITALS: BP 116/54; PULSE 50; RESP 16; O2SAT 95
== END 2023-10-18 22:20 | disposition home or self-care (01) ==
PROVIDERS: Physician Assistant Medical; Emergency Provider Emergency Medicine; PCP Family Medicine
DX: K92.1 Melena (principal); Z79.899 Other long term (current) drug therapy
CPT/HCPCS: 36415; 80053; 82272; 83735; 85025; 85610; 85730; 99283; 99284

== ENCOUNTER 2025-01-11 13:19 | Emergency (ER) | payer MEDICARE, MEDICAID, SELFPAY ==
--- NOTE | ~2025-01-11 | US_ITS ---
EXAMINATION: US TRIPLEX LOWER EXTREMITY, LEFT CLINICAL INFORMATION: Edema, left lower extremity COMPARISON: None available. TECHNIQUE: Color-flow triplex imaging with spectral analysis and compression Doppler were performed on the left lower extremity. FINDINGS: Respiratory variation, normal compression and augmented flow are noted throughout the interrogated common femoral vein, superficial femoral vein, profunda femoral vein, popliteal vein and midcalf peroneal and posterior tibial venous segments There is no Michaels's cyst. Calcified plaques in the arteries of the left lower extremity. US/US venous duplex LE IMPRESSION: No acute deep venous thrombosis involving the left lower extremity. Negative for DVT. Electronically signed by: Rodríguez Aquino MD 01/11/2025 03:36 PM EDT
[2025-01-11 13:24] VITALS: BP 107/52; PULSE 72; RESP 18; TEMP 36.7; O2SAT 96; BMI 26.6
--- NOTE | 2025-01-11 13:31 | ED.GENADULT ---
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 Patient was seen by his PCP earlier this month for increasing swelling to the left lower leg. He denies any injury to the area or scratches. His primary doctor told him to go to the ER if he has any increase in warmth or redness to the area The patient presents today due to increased warmth and discoloration described as pain that started yesterday. The patient has no fevers or chills No other complaints or concerns at this time Related Data Previous Rx's ?Medication ?Instructions ?Recorded omeprazole 20 mg capsule,delayed 20 mg PO BID #60 caps 10/18/23 release cephalexin 500 mg tablet 500 mg PO QID #28 tabs 01/11/25 Allergies Allergy/AdvReac Type Severity Reaction Status Date / Time No Known Allergies Allergy Verified 01/11/25 13:30 [No Known Allergies*] Review of Systems Constitutional: Constitutional: Denies body ache(s), Denies chills, Denies fever(s) and Denies headache(s) Eyes: Eyes: Denies blurry vision ENT: Denies vertigo and Denies headache(s) Cardiovascular: Cardiovascular: Denies chest pain, Reports leg edema and Denies dyspnea Respiratory: Respiratory: Denies cough and Denies dyspnea Musculoskeletal: Musculoskeletal: Denies arthralgias, Denies joint swelling and Denies limited range of motion Integumentary/Breasts: Skin/Breast: Reports erythema, Reports skin swelling and Denies wounds Neurologic: Denies vertigo and Denies headache(s) [facility] Past Medical History Medical History Anemia BPH (benign prostatic hyperplasia) GERD (gastroesophageal reflux disease) Social History Social History Alcohol intake: never Advance Directives: No Advance Directives Information Provided: Yes Do you have a plan to hurt others: No Plan Physical Exam ED Vital Signs: Vital Signs - 24 hr 01/11/25 13:24 Temperature 98.1 F Pulse Rate 72 Respiratory Rate 18 Blood Pressure 107/52 L Pulse Oximetry 96 Oxygen Delivery Method Room Air BMI result Body Mass Index 26.6 Const General: healthy appearing, comfortable, no acute distress, alert and awake Nutritional Appearance: well nourished Orientation/consciousness: patient oriented x3 HENMT Head: Yes normocephalic and Yes atraumatic Eyes Eyelids: Yes eyelids normal Conjunctivae: conjunctivae normal Sclerae: sclerae normal Corneas: corneas normal Pupils: Equal, round and reactive pupils present EOM: EOMs intact bilaterally Neck Neck: Yes full ROM Resp Effort & Inspection: normal respiratory effort, able to speak in complete sentences and not labored Cardio Rate: regular rate Rhythm: regular rhythm Skin General skin exam: elasticity normal Neuro General: patient oriented x3 Cranial nerves: Yes Equal, round and reactive pupils present and Yes Bilaterally intact EOM present Cognition (Neuro): normal cognition Extrem Other: Right BKA. Patient has 1 to 2+ pitting edema to the left lower extremity with faint erythema. No open wounds. No significant calf tenderness. Negative Homans sign. Course Course Course Narrative: 69-year-old male presents for evaluation of left leg pain and swelling. He has had the swelling for about a month but this morning it starts turned pink. No fevers or chills. Denies any injury. Plan for labs, ultrasound to rule out DVT. 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 The patient denies any traumatic injury, he does have some increased warmth and faint erythema which started yesterday. He had labs which show no leukocytosis, he was afebrile. Ultrasound that was negative for DVT. The patient's symptoms may be related to developing lymphedema versus an early cellulitis. I discussed with the patient and his that I prescribed a 1 week course of cephalexin. I encouraged him to try to treat without antibiotics for the next 2 days, elevation, compression. If the symptoms are worsening or not getting better to start the antibiotics to treat an early cellulitis Differential Diagnosis Differential Diagnoses: The differential diagnosis associated with the presentation includes Leg swelling Lymphedema DVT CHF less likely Cellulitis Lab Data MDM Lab Attestation statement: I reviewed the patient's lab results. Mild leukopenia and a mild normocytic anemia goes consistent with his labs from December of 2023. No significant changes. There was no significant left shift. The patient's ESR is just above normal at 16. CRP is within normal limits. No significant chemistry abnormalities. 01/11/25 13:42 01/11/25 13:42 Labs: Lab Results 01/11/25 Range/Units 13:42 WBC 4.1 L (4.8-10.8) X10*3/uL RBC 3.85 L (4.60-5.80) X10*6/uL Hgb 11.8 L (14.0-18.0) g/dl Hct 34.6 L (42.0-52.0) % MCV 89.9 (80.0-98.0) fL MCH 30.6 (27.0-33.0) pg MCHC 34.1 (31.0-36.0) g/dl RDW 13.3 (11.0-16.0) % Plt Count 178 (160-400) X10*3/uL MPV 9.6 (9.4-12.4) fL Immature Gran % (Auto) 0.0 (0.0-0.4) % Neut % (Auto) 62.6 (45-73) % Lymph % (Auto) 24.6 (20-40) % Whitman % (Auto) 7.4 (2-11) % Eos % (Auto) 4.4 H (0-4) % Baso % (Auto) 1.0 (0-2) % Lymph # (Auto) 1.0 L (1.2-4.9) X10*3/uL Whitman # (Auto) 0.3 (0.1-1.2) X10*3/uL Eos # (Auto) 0.2 (0.0-0.4) X10*3/uL Baso # (Auto) 0.0 (0.0-0.2) X10*3/uL Abs Immat Gran (auto) 0.00 (0.00-0.03) X10*3/uL Absolute Neuts (auto) 2.6 (2.0-8.3) x10*3/uL Absolute Nucleated RBC 0.000 (0.0-0.012) X10*3/uL Nucleated RBC % (auto) 0.0 (0.0-0.2) /100WBC ESR 16 H (0-15) MM/HR Sodium 141 (135-145) mmol/L Potassium 3.9 (3.3-5.1) mmol/L Chloride 105 (96-108) mmol/L Carbon Dioxide 26 (22-29) mmol/L Anion Gap 14 (12-20) BUN 10 (9-16) mg/dL Creatinine 0.59 (0.5-1.4) mg/dL Estim Creat Clear Calc 127.6 Estimated GFR > 60 Random Glucose 113 (60-115) mg/dL Calcium 9.0 (8.4-10.2) mg/dL C-Reactive Protein 0.44 (< or = 0.50) mg/dL Radiology Impression Discussion of test interpretation with radiology: I have reviewed the radiologist's reading. Radiologist Impression: FINDINGS: Respiratory variation, normal compression and augmented flow are noted throughout the interrogated common femoral vein, superficial femoral vein, profunda femoral vein, popliteal vein and midcalf peroneal and posterior tibial venous segments There is no Michaels's cyst. Calcified plaques in the arteries of the left lower extremity. US/US venous duplex LE LT IMPRESSION: No acute deep venous thrombosis involving the left lower extremity. Negative for DVT. Electronically signed by: Rodríguez Aquino MD 01/11/2025 03:36 PM EDT Prescription Management I considered prescription management with: Pain Medication and Antibiotic Discharge Plan Discharge Clinical Impression: Left leg swelling Patient Disposition: Home, Self-Care Instructions: Cellulitis (ED) Additional Instructions: Your workup in the ER today was reassuring. Your ultrasound does not show any evidence of blood clot. Your blood work was reassuring. I prescribed an antibiotic for you to take for 1 week. Return for new or worsening symptoms, especially develop fevers or severe pain Prescriptions: New cephalexin 500 mg tablet 500 mg PO QID Qty: 28 0RF No Action omeprazole 20 mg capsule,delayed release(DR/EC) 20 mg PO BID Qty: 60 0RF Print Language: Macedonian
[2025-01-11 13:49] LABS: MANUAL DIFF FLAG NO
[2025-01-11 13:54] LABS: Eosinophils Absolute Auto 0.2 X10*3/uL (0.0-0.4); Eosinophils Percent Auto 4.4 % (0-4); Hematocrit 34.6 % (42.0-52.0); Hemoglobin 11.8 g/dl (14.0-18.0); Lymphocytes Percent Auto 24.6 % (20-40); Mean Corpuscular HGB Conc 34.1 g/dl (31.0-36.0); Mean Corpuscular Hemoglobin 30.6 pg (27.0-33.0); Mean Corpuscular Volume 89.9 fL (80.0-98.0); Mean Platelet Volume 9.6 fL (9.4-12.4); Monocytes Absolute Auto 0.3 X10*3/uL (0.1-1.2); Monocytes Percent Auto 7.4 % (2-11); Neutrophils Absolute Auto 2.6 x10*3/uL (2.0-8.3); Neutrophils Percent Auto 62.6 % (45-73); Platelet Count 178 X10*3/uL (160-400); Red Blood Count 3.85 X10*6/uL (4.60-5.80); Red Cell Distribution Width 13.3 % (11.0-16.0); White Blood Count 4.1 X10*3/uL (4.8-10.8)
[2025-01-11 14:11] LABS: Anion Gap 14 (12-20); Blood Urea Nitrogen 10 mg/dL (9-16); C Reactive Protein 0.44 mg/dL (< or = 0.50); Carbon Dioxide 26 mmol/L (22-29); Chloride 105 mmol/L (96-108); Creatinine Clr Calc Pharmacy 127.6; Estimated Glomerular Filt Rate > 60; Glucose Random 113 mg/dL (60-115); Potassium 3.9 mmol/L (3.3-5.1); Sodium 141 mmol/L (135-145)
[2025-01-11 14:31] LABS: Erythrocyte Sedimentation Rate 16 MM/HR (0-15)
[2025-01-11 17:51] VITALS: BP 109/49; PULSE 63; RESP 16; TEMP 36.8; O2SAT 97
--- OUTSIDE RECORDS SUMMARY | 2025-01-11 19:16 | XMS_ITS | Clinical Summary ---
Author Organization Unknown Care Team Providers Care Curriculum And Assessment Director Name Role Phone AFSHIN BRAKE DRUM MOLDER, BETTY Unavailable Unavailable DEMIAN CHA, [place] Unavailable Unavailable JOSE CHA, LISA Unavailable Unavailable Payers Payer Name Policy Type Policy Number Effective Date Expira tion Date ON DEMAND MEDICARE - [place] - AB[place] [id number] [facility] - [facility] [id number] Problems Condition Name Condition Details Condition Category Status Onset Date Resolution Date Last Treatment Date Treating Clinician Comments ALZHEIMER'S DISEASE, UNSPECIFIED Active 03-13 00:00: 00 OPIOID DEPENDENCE, UNCOMPLICATE D Active 03-13 00:00: 00 MAJOR DEPRESSIVE DISORDER, RECURRENT, MODERATE Active 03-13 00:00: 00 Allergies, Adverse Reactions, Alerts Allergy Name Allergy Type Status Severity Reaction(s) Onset Date Inactive Date Treating Clinician Comments NKA Propensity to adverse reactions Active 2022-03 09:32:2 6 Medications Ordered Medication Name Filled Medication Name Start Date Stop Date Current Medication? Ordering Clinician Indication Dosage Frequency Signature (SIG) Comments Components Celexa 40 mg tablet 05-24 00:00: 00 03-13 23:59 :00 No [id number] 1 tablet DAILY 1 tablet DAILY (route: oral) Med Classific ation: Central Nervous System Agents folic acid 800 mcg tablet 05-24 00:00: 00 03-13 23:59 :00 No [id number] 1 tablet DAILY 1 tablet DAILY (route: oral) Med Classific ation: Electroly te Balance-N utritiona l Products gabapentin 300 mg capsule 05-24 00:00: 00 03-13 23:59 :00 No [id number] 2 capsule 3 TIMES DAILY 2 capsule 3 TIMES DAILY (route: oral) Med Classific ation: Central Nervous System Agents Lantus U-100 Insulin 100 unit/mL subcutaneou s solution 05-24 00:00: 00 03-13 23:59 :00 No [id number] 40 unit O2 - PRN 40 unit O2 - PRN (route: subcutaneo us) Med Classific ation: Endocrine levothyroxi ne 112 mcg tablet 05-24 00:00: 00 03-13 23:59 :00 No [id number] 2 tablet DAILY 2 tablet DAILY (route: oral) Med Classific ation: Endocrine lisinopril 20 mg tablet 05-24 00:00: 00 03-13 23:59 :00 No [id number] 1 tablet DAILY 1 tablet DAILY (route: oral) Med Classific ation: Cardiovas cular Therapy Agents omeprazole 20 mg capsule,del ayed release 05-24 00:00: 00 03-13 23:59 :00 No [id number] 1 capsule DAILY 1 capsule DAILY (route: oral) Med Classific ation: Gastroint estinal Therapy Agents prazosin 1 mg capsule 05-24 00:00: 00 03-13 23:59 :00 No [id number] 2 capsule BEDTIME 2 capsule BEDTIME (route: oral) Med Classific ation: Cardiovas cular Therapy Agents ramelteon 8 mg tablet 05-24 00:00: 00 03-13 23:59 :00 No [id number] 1 tablet BEDTIME 1 tablet BEDTIME (route: oral) Med Classific ation: Central Nervous System Agents Suboxone 8 mg-2 mg sublingual film 05-24 00:00: 00 03-13 23:59 :00 No [id number] 2.5 film DAILY 2.5 film DAILY (route: sublingual ) Med Classific ation: Chemical Dependenc y, Agents to Treat tamsulosin 0.4 mg capsule 05-24 00:00: 00 03-13 23:59 :00 No [id number] 1 capsule DAILY 1 capsule DAILY (route: oral) Med Classific ation: Genitouri nary Therapy Trulicity 1.5 mg/0.5 mL subcutaneou s pen injector 05-24 00:00: 00 03-13 23:59 :00 No [id number] 1 mg WEEKLY 1 mg WEEKLY (route: subcutaneo us) Med Classific ation: Endocrine citalopram 20 mg tablet 03-18 00:00: 00 04-06 23:59 :00 No [id number] 1 tablet DAILY 1 tablet DAILY (route: oral) Med Classific ation: Central Nervous System Agents Allergy Relief (fluticason e) 50 mcg/actuati on nasal spray,suspe nsion 03-25 00:00: 00 Yes [id number] 2 spray DAILY 2 spray DAILY (route: nasal) Med Classific ation: Respirato ry Therapy Agents aripiprazol e 5 mg tablet 03-25 00:00: 00 05-07 23:59 :00 No [id number] 1 tablet DAILY 1 tablet DAILY (route: oral) Med Classific ation: Central Nervous System Agents buprenorphi ne 2 mg-naloxone 0.5 mg sublingual film 03-25 00:00: 00 Yes [id number] Per instruc tions DIRECTED Per instructio ns DIRECTED (route: sublingual ) Med Classific ation: Chemical Dependenc y, Agents to Treat citalopram 40 mg tablet 03-25 00:00: 00 Yes [id number] 1 tablet DAILY 1 tablet DAILY (route: oral) Med Classific ation: Central Nervous System Agents donepezil 5 mg tablet 03-25 00:00: 00 11-08 23:59 :00 No [id number] 1 tablet DAILY 1 tablet DAILY (route: oral) Med Classific ation: Cognitive Disorder Therapy ferrous gluconate 324 mg (38 mg iron) tablet 03-25 00:00: 00 07-02 23:59 :00 No [id number] 1 tablet DAILY 1 tablet DAILY (route: oral) Med Classific ation: Electroly te Balance-N utritiona l Products folic acid 1 mg tablet 03-25 00:00: 00 Yes [id number] 1 tablet DAILY 1 tablet DAILY (route: oral) Med Classific ation: Electroly te Balance-N utritiona l Products gabapentin 400 mg capsule 03-25 00:00: 00 03-05 23:59 :00 No [id number] 1 capsule BEDTIME 1 capsule BEDTIME (route: oral) Med Classific ation: Central Nervous System Agents levothyroxi ne 112 mcg tablet 03-25 00:00: 00 09-03 23:59 :00 No [id number] 2 tablet DAILY 2 tablet DAILY (route: oral) Med Classific ation: Endocrine melatonin 5 mg capsule 03-25 00:00: 00 12-30 23:59 :00 No [id number] 1 capsule BEDTIME 1 capsule BEDTIME (route: oral) Med Classific ation: Central Nervous System Agents omeprazole 20 mg capsule,del ayed release 03-24 00:00: 00 Yes [id number] 1 capsule DAILY 1 capsule DAILY (route: oral) Med Classific ation: Gastroint estinal Therapy Agents prazosin 2 mg capsule 03-25 00:00: 00 Yes [id number] 1 capsule BEDTIME 1 capsule BEDTIME (route: oral) Med Classific ation: Cardiovas cular Therapy Agents ramelteon 8 mg tablet 03-25 00:00: 00 03-11 23:59 :00 No [id number] 1 tablet BEDTIME 1 tablet BEDTIME (route: oral) Med Classific ation: Central Nervous System Agents tamsulosin 0.4 mg capsule 03-25 00:00: 00 Yes [id number] 1 capsule BEDTIME 1 capsule BEDTIME (route: oral) Med Classific ation: Genitouri nary Therapy Trulicity 0.75 mg/0.5 mL subcutaneou s pen injector 03-25 00:00: 00 05-16 23:59 :00 No [id number] Per instruc tions WEEKLY Per instructio ns WEEKLY (route: subcutaneo us) Med Classific ation: Endocrine Silvadene 1 % topical cream 2021-09 2 00:00: 00 09-17 23:59 :00 No [id number] Per instruc tions 2 TIMES A WEEK Per instructio ns 2 TIMES A WEEK (route: topical) Med Classific ation: Dermatolo gical donepezil 5 mg tablet 2 00:00: 00 Yes [id number] 2 tablet BEDTIME 2 tablet BEDTIME (route: oral) Med Classific ation: Cognitive Disorder Therapy aripiprazol e 5 mg tablet 8 00:00: 00 03-05 23:59 :00 No [id number] 0.5 tablet DAILY 0.5 tablet DAILY (route: oral) Med Classific ation: Central Nervous System Agents levothyroxi ne 200 mcg tablet 2022-09 00:00: 00 03-05 23:59 :00 No [id number] 1 tablet DAILY 1 tablet DAILY (route: oral) Med Classific ation: Endocrine aripiprazol e 5 mg tablet 03-07 00:00: 00 Yes [id number] 1 tablet EVERY PM 1 tablet EVERY PM (route: oral) Med Classific ation: Central Nervous System Agents famotidine 40 mg tablet 03-07 00:00: 00 Yes [id number] 1 tablet EVERY PM 1 tablet EVERY PM (route: oral) Med Classific ation: Gastroint estinal Therapy Agents gabapentin 400 mg capsule 03-07 00:00: 00 Yes [id number] 2 capsule EVERY PM 2 capsule EVERY PM (route: oral) Med Classific ation: Central Nervous System Agents levothyroxi ne 150 mcg capsule 03-07 00:00: 00 Yes [id number] 1 capsule EVERY PM 1 capsule EVERY PM (route: oral) Med Classific ation: Endocrine Immunizations Ordered Immunization Name Filled Immunization Name Date Status Comments Refusal Reason COVID SECOND DOSE, COVID SECOND DOSE 2022-03-18 00:00:00 INFLUENZA, TIV (INACTIVATED) 2022-03-18 00:00:00 SHINGLES, TIV (INACTIVATED) 2022-03-18 00:00:00 Plan of Treatment Planned Activity Planned Date Details Comments Future Scheduled Test SKILLED NU RSE TO EVALUATE PATIENT, IDENTIFY PRIMARY AND CO-MORBID CONDITIONS CODED PER CODING GUIDELINES, AND DEVELOP PATIENT SPECIFIC PLAN OF CARE THAT INCLUDES PATIENT GOAL FOR HOME HEALTH. [code = SKILLED NURSE TO EVALUATE PATIENT, IDENTIFY PRIMARY AND CO-MORBID CONDITIONS CODED PER CODING GUIDELINES, AND DEVELOP PATIENT SPECIFIC PLAN OF CARE THAT INCLUDES PATIENT GOAL FOR HOME HEALTH.] Future Scheduled Test SKILLED NU RSE TO O/A OF PATIENTS MENTAL/BEHAVIORAL STATUS, ASSESS VITAL SIGNS NEEDED OR REQUESTED, ALLOW 2 PRNS FOR MEDICATION MANAGEMENT. [code = SKILLED NURSE TO O/A OF PATIENTS MENTAL/BEHAVIORAL STATUS, ASSESS VITAL SIGNS NEEDED OR REQUESTED, ALLOW 2 PRNS FOR MEDICATION MANAGEMENT.] Future Scheduled Test SKILLED NU RSE WILL MAINTAIN SITUATIONAL AWARENESS FOR SAFETY AND WILL NOTIFY CLINICAL BDR AND PHYSICIAN/PROVIDER WITH ANY CHANGE IN CONDITION. [code = SKILLED NURSE WILL MAINTAIN SITUATIONAL AWARENESS FOR SAFETY AND WILL NOTIFY CLINICAL BDR AND PHYSICIAN/PROVIDER WITH ANY CHANGE IN CONDITION.] Future Scheduled Test SKILLED NU RSE TO PRE-POUR MEDICATION PER MEDICATION LIST WEEKLY. [code = SKILLED NURSE TO PRE-POUR MEDICATION PER MEDICATION LIST WEEKLY.] Future Scheduled Test SKILLED NU RSE FOR O/A AND SKILLED TEACHING RELATED TO MANAGEMENT OF DEPRESSIVE SYMPTOMS AND/OR DEPRESSION. SN TO REPORT SIGNIFICANT CHANGE IN DEPRESSIVE SYMPTOMS TO CLINICAL PROVIDER FOR EARLY INTERVENTION. [code = SKILLED NURSE FOR O/A AND SKILLED TEACHING RELATED TO MANAGEMENT OF DEPRESSIVE SYMPTOMS AND/OR DEPRESSION. SN TO REPORT SIGNIFICANT CHANGE IN DEPRESSIVE SYMPTOMS TO CLINICAL PROVIDER FOR EARLY INTERVENTION.] Future Scheduled Test SKILLED NU RSE FOR O/A AND SKILLED TEACHING OF COPING SKILLS TO MANAGE ANXIETY AND MAINTAIN SAFETY. [code = SKILLED NURSE FOR O/A AND SKILLED TEACHING OF COPING SKILLS TO MANAGE ANXIETY AND MAINTAIN SAFETY.] Future Scheduled Test SKILLED NU RSE FOR O/A OF NEUROCOGNITIVE AND BEHAVIORAL STATUS [code = SKILLED NURSE FOR O/A OF NEUROCOGNITIVE AND BEHAVIORAL STATUS] Future Scheduled Test SKILLED NU RSE TO ASSESS PATIENTS PSYCHOSOCIAL STATUS TO IDENTIFY POTENTIAL ISSUES THAT MAY COMPLICATE THE PROVISION OF THE PLAN OF CARE INCLUDING THE PATIENTS ABILITY TO ACCESS COMMUNITY RESOURCES AND PSYCHOSOCIAL SUPPORT SERVICES. [code = SKILLED NURSE TO ASSESS PATIENTS PSYCHOSOCIAL STATUS TO IDENTIFY POTENTIAL ISSUES THAT MAY COMPLICATE THE PROVISION OF THE PLAN OF CARE INCLUDING THE PATIENTS ABILITY TO ACCESS COMMUNITY RESOURCES AND PSYCHOSOCIAL SUPPORT SERVICES.] Future Scheduled Test SKILLED NU RSE FOR O/A OF CLIENT'S SOCIAL ISOLATION AND PROVIDE ASSISTANCE TO CLIENT IN DEVELOPMENT OF PLANNED ACTIVITIES [code = SKILLED NURSE FOR O/A OF CLIENT'S SOCIAL ISOLATION AND PROVIDE ASSISTANCE TO CLIENT IN DEVELOPMENT OF PLANNED ACTIVITIES] Future Scheduled Test MEDICATION S WILL BE HELD AND STORED IN LOCKBOX [code = MEDICATIONS WILL BE HELD AND STORED IN LOCKBOX] Future Scheduled Test SKILLED NU RSE MAY PICKUP AND TRANSPORT MEDICATIONS [code = SKILLED NURSE MAY PICKUP AND TRANSPORT MEDICATIONS] Future Scheduled Test SKILLED NU RSE FOR O/A AND SKILLED TEACHING RELATED TO ALTERED SKIN INTEGRITY UNDER RIGHT LEG PROSTHETIC. [code = SKILLED NURSE FOR O/A AND SKILLED TEACHING RELATED TO ALTERED SKIN INTEGRITY UNDER RIGHT LEG PROSTHETIC.] Goal Patient Goal - T O BE MED COMPLIANT THROUGH NEXT EPISODE Goal 2022-07-11 Patient Goal - T O BE MED COMPLIANT THROUGH NEXT EPISODE Goal 2022-05-16 Patient Goal - [id number] Goal 2022-09-11 Patient Goal - T O BE MED COMPLIANT THROUGH NEXT EPISODE Goal 2022-11-09 Patient Goal - T O BE MED COMPLIANT THROUGH NEXT EPISODE Goal 2023-01-09 Patient Goal - T O BE MED COMPLIANT THROUGH NEXT EPISODE Goal 2023-03-12 Patient Goal - T O BE MED COMPLIANT THROUGH NEXT EPISODE Goal 2023-05-08 Patient Goal - T O BE MED COMPLIANT THROUGH NEXT EPISODE Goal 2023-07-10 Patient Goal - T O BE MED COMPLIANT THROUGH NEXT EPISODE Goal 2023-09-04 Patient Goal - T O BE MED COMPLIANT THROUGH NEXT EPISODE Goal 2023-11-05 Patient Goal - T O BE MED COMPLIANT THROUGH NEXT EPISODE Goal 2024-01-02 Patient Goal - T O BE MED COMPLIANT THROUGH NEXT EPISODE Goal 2024-03-06 Patient Goal - T O BE MED COMPLIANT THROUGH NEXT EPISODE Goal 2024-05-05 Patient Goal - T O BE MED COMPLIANT THROUGH NEXT EPISODE Goal 2024-07-01 Patient Goal - T O BE MED COMPLIANT THROUGH NEXT EPISODE Goal 2024-09-02 Patient Goal - T O BE MED COMPLIANT THROUGH NEXT EPISODE Goal 2024-10-28 Patient Goal - T O BE MED COMPLIANT THROUGH NEXT EPISODE Goal 2024-12-30 Patient Goal - T O BE MED COMPLIANT THROUGH NEXT EPISODE Goal Provider Goal - A PLAN OF CARE WILL BE ESTABLISHED THAT MEETS PATIENT'S LONG-TERM NEEDS AND INCLUDES PATIENT GOAL FOR HOME HEALTH. Goal Provider Goal - ALTERED MENTAL/BEHAVIORAL STATUS WILL BE IDENTIFIED PROMPTLY AND INTERVENTION INITIATED QUICKLY TO MINIMIZE ASSOCIATED RISKS THROUGHOUT CERTIFICATION PERIOD. Goal Provider Goal - PATIENT WILL REMAIN SAFE IN THE COMMUNITY AND WILL BE FREE OF DANGER TO SELF AND OTHERS THROUGHOUT THE CERTIFICATION PERIOD. Goal Provider Goal - PATIENT WILL COMPLY WITH MEDICATION WHEN SKILLED NURSE PRE-POURS MEDICATION THROUGHOUT CERTIFICATION PERIOD. Goal Provider Goal - PATIENT WILL REMAIN SAFE WITHOUT DECOMPENSATION IN DEPRESSIVE CONDITION, WHILE MAINTAINING OPTIMAL LEVEL OF MENTAL HEALTH AND WELL BEING THROUGHOUT CERTIFICATION PERIOD. Goal Provider Goal - PATIENT WILL BE ABLE TO PERFORM DAILY FUNCTIONS AND HAVE OPTIMAL IMPROVEMENT IN LEVEL OF ANXIETY THROUGHOUT CERTIFICATION PERIOD. Goal Provider Goal - PATIENT WILL BE ABLE TO PERFORM DAILY FUNCTIONS AND MAINTAIN OPTIMAL BEHAVIORAL/NEUROCOGNITIVE STATUS THROUGHOUT CERTIFICATION PERIOD. Goal Provider Goal - PSYCHOSOCIAL NEEDS WILL BE IDENTIFIED AND PLAN IMPLEMENTED TO MINIMIZE RISK THROUGHOUT CERTIFICATION PERIOD. Goal Provider Goal - PATIENT WILL DEMONSTRATE AN INCREASED INTEREST IN SOCIALIZATION AND ACTIVITIES BY THE END OF THE CERTIFICATION PERIOD. Goal Provider Goal - MEDICATION WILL BE STORED IN LOCKBOX FOR SAFETY. Goal Provider Goal - SKILLED NURSE PICKED UP AND TRANSPORTED MEDICATIONS FOR SAFETY. Goal Provider Goal - PATIENT/CAREGIVER WILL VERBALIZE/DEMONSTRATE UNDERSTANDING OF TEACHING RELATED TO ALTERED SKIN INTEGRITY U FADY PROSTHETIC BY END OF CERTIFICATION PERIOD. Encounters Start Date/Time End Date/Time Encounter Type Admission Type Attending [facility] Care Department Encounter ID Discharge Date Discharge Status Discharge Condition Discharge Reason Percent Goals Met 2022-03-18 00:00:00 2025-03-01 00:00:00 Outpatient RECERTIFIC ATION LISA GARCIA [facility] [id number]
--- OUTSIDE RECORDS SUMMARY | 2025-01-11 19:16 | XMS_ITS ---
Author Organization [facility] Care Team Providers Care Counter Intelligence Technician Name Role Phone Shaylee Doherty Unavailable Unavailable Nancy Michael Unavailable Unavailable Soo Sun Unavailable Unavailable Melanie Curtis Unavailable Unavailable Ramandeep BELL, Jaki Dash Unavailable Unavailable Estela Salcedo Unavailable Unavailable Ursula, Brandie Unavailable Unavailable Maingi, Shadrack Unavailable Unavailable Allergies and adverse reactions No Known Allergies Care Team Name Role Address Phone Organization Dates Soo Sun PCP [address] [place] [address], [place], [address], [facility] (Office): : [facility] 07/26/2021 - 08/23/2021 Shaylee Doherty Attending Physician [address] [place] [address], [place], [address], [place] (Office): : [phone] [facility] 07/26/2021 - 08/23/2021 Nancy Michael [place]ending [place], [address], [facility] (Office): : [facility] 07/26/2021 - 08/23/2021 Melanie Curtis Attending Physician [address] [place] [address], [place], [address], [place] (Office): : [phone] [facility] 07/26/2021 - 08/23/2021 Jaki Sabillon NP Attending Physician [address] [place] [address] (Office): [facility] 07/26/2021 - 08/23/2021 Estela Salcedo Attending Physician [address] [place] [address] (Office): : [phone] [facility] 07/26/2021 - 08/23/2021 Brandie Vergara Attending Physician [address] [place] [address], [address] (Office): : [phone] [facility] 07/26/2021 - 08/23/2021 Sasha Spivey Attending Physician [address] [place] [address], [address] [place] [address] (Office): : [facility] 07/26/2021 - 08/23/2021 Goals Section Description Status Target Date I will experience no ill eff ects from forgetting to wear a face mask. Active 10/31/2021 I will follow the centers po licy r/t drug and alcohol at the facility. I will show no S&S of Drug and/or alcohol abuse through the next review date Active 10/31/2021 My abilities will be maximiz ed. With your supervision, I will remain clean and free of odor, be well groomed and well nourished through the next review date Active 10/31/2021 My advanced directives will be honored Active 10/31/2021 My behaviors will not effect my safety or the safety of others through the next review period. Active 10/31/2021 The resident will be free fr om discomfort or adverse reactions related to antidepressant therapy through the review date. Active 10/31/2021 The resident will be free of any discomfort or adverse side effects of hypnotic use through the review date. Active 10/31 The resident will be free of falls through the r eview date. Active 10/31/2021 The resident will maintain a dequate nutritional status as evidenced by maintaining weight within +/-5% of admission wt, no s/sx of malnutrition, and consuming at least 75% of all meals daily through review date. Active 10/31/2021 The resident will reduce the use of psychotropic medication through the review date. Active 10/31/2021 With staff help I will not develop any skin issu es. Active 10/31/2021 Immunizations Immunization Status Vaccine Details Vaccine Code CodeSystem Gerald e Notes James COVID-19 Vaccine ([place]) 1 Dose completed SARS-COV-2 (COVID-19) vaccine, vector non-replicating, recombinant spike protein-Ad26, preservative free, 0.5 mL 212 CVX created date: 07/27/2021 consent date: 07/27/2021 administered date: 01/23/2021 Mental Status Section Date Assessment Total Score Description 08/23/2021 BIMS 13 cognitively int act CAM 0 No delirium ind icated PHQ-9 00 08/02/2021 BIMS 13 cognitively int act CAM 0 No delirium ind icated PHQ-9 00 Problems Problem # Description Date of onset Resolved Date Code CodeSystem Concern Status 1 METHICILLIN RESISTANT STAPHYLOCOCCUS AUREUS INFECTION THE CAUSE OF DISEASES CLASSIFIED ELSEWHERE 08/02/[address] active 2 ACQUIRED ABSENCE OF RIGHT LEG BELOW KNEE 07/26/[address] active 3 ALZHEIMER'S DISEASE WITH EARLY ONSET 07/26/[address] active 4 AMPUTATION OF LIMB(S) THE CAUSE OF ABNORMAL REACTION OF THE PATIENT, OR OF LATER COMPLICATION, WITHOUT MENTION OF MISADVENTURE AT THE TIME OF THE PROCEDURE 07/26/[address] active 5 ANEMIA, UNSPECIFIED 07/26/[address] active 6 ANXIETY DISORDER, UNSPECIFIED 07/26/[address] active 7 BACTEREMIA 07/26/[address] active 8 BENIGN PROSTATIC HYPERPLASIA WITHOUT LOWER URINARY TRACT SYMPTOMS 07/26/[address] active 9 CELLULITIS OF RIGHT LOWER LIMB 07/26/[address] active 10 CUTANEOUS ABSCESS OF RIGHT LOWER LIMB 07/26/[address] active 11 DEMENTIA IN OTHER DISEASES CLASSIFIED ELSEWHERE, UNSPECIFIED SEVERITY, WITHOUT BEHAVIORAL DISTURBANCE, PSYCHOTIC DISTURBANCE, MOOD DISTURBANCE, AND ANXIETY 07/26/[address] active 12 DEPRESSION, UNSPECIFIED 07/26/[address] active 13 ESSENTIAL (PRIMARY) HYPERTENSION 07/26/[address] active 14 GASTRO-ESOPHAGEAL REFLUX DISEASE WITHOUT ESOPHAGITIS 07/26/[address] active 15 HISTORY OF FALLING 07/26/[address] active 16 HORMONE REPLACEMENT THERAPY 07/26/[address] active 17 HYPOTHYROIDISM, UNSPECIFIED 07/26/[address] active 18 INFECTION OF AMPUTATION STUMP, RIGHT LOWER EXTREMITY 07/26/[address] active 19 INSOMNIA, UNSPECIFIED 07/26/[address] active 20 IRON DEFICIENCY ANEMIA, UNSPECIFIED 07/26/[address] active 21 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 07/26/[address] active 22 MAJOR DEPRESSIVE DISORDER, RECURRENT, UNSPECIFIED 07/26/[address] active 23 NEED FOR ASSISTANCE WITH PERSONAL CARE 07/26/[address] active 24 OPIOID DEPENDENCE, UNCOMPLICATED 07/26/[address] active 25 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 07/26/[address] active 26 OTHER REDUCED MOBILITY 07/26/[address] active 27 TYPE 2 DIABETES MELLITUS WITH HYPERGLYCEMIA 07/26/[address] active 28 TYPE 2 DIABETES MELLITUS WITHOUT COMPLICATIONS 07/26/[address] active 29 UNSPECIFIED ABNORMALITIES OF GAIT AND MOBILITY 07/26/[address] active 30 WEAKNESS 07/26/[address] active Reason for Referral No Reasons for Referral Entered Social History Social History Observation Description Start Date End Date Code Code System Current Smoking Status Tobacco smoking consumption unknown 670670773 SNOMED CT Sex Assigned At Male 1955 72878-2 [facility] Vital Signs Code Code System Vitals Name Values and Units Timing Information 2339-0 [facility] Blood Sugar Kpqwd=809.0 Units=mg/dL 08/20/2021 32873-7 [facility] Weight Wklwt=109.0 Units=Lbs 11/2020 9279-1 [facility] Respiratory Rate Value=16.0 Units=/m in 08/18/2021 8462-4 [facility] Blood Pressure-Diastolic Value=68 Un its=mmHg 08/18/2021 8480-6 [facility] Blood Pressure-Systolic Xhunw=862 Un its=mmHg 08/18/2021 8310-5 [facility] Body Temperature Value=98.1 Units=?? F 08/18/2021 8867-4 [facility] Heart rate Value=67.0 Units=/min 11/2020 64664-1 [facility] O2 % BldC Oximetry Value=97.0 Units= % 08/18/2021 99629-6 [facility] Pain Level Value=1.0 08/18/2021
--- OUTSIDE RECORDS SUMMARY | 2025-01-11 19:16 | XMS_ITS | Clinical Summary ---
Author Organization [facility] it Address [address] [place] [id number] Care Team Providers Care Child Support Specialist Name Role Phone Unavailable Primary Care Provider Unavailabl e Social History Tobacco Use Types Packs/Day Years Used Date Smoking Tobacco: Never Assessed Sex and Gender Information Value Date Recorded Sex Assigned at Not on file Legal Sex Male 9:40 AM EST Gender Identity Not on file Sexual Orientation Not on file Plan of Treatment Health Maintenance Due Date Last Done Comments DTaP,Tdap,and Td Vaccines (1 - Tdap) 1975 Pneumococcal Vaccine: 50+ Ye ars (1 of 1 - PCV) 2006 Zoster Vaccines (1 of 2) 2006 COVID-19 Vaccine ( - 2023-2 5 season) 2024 Influenza Vaccine (Season Ended) 2025 RSV Immunization Adult Patie nts (1 - 1-dose 75+ series) 2031 HIB Vaccines Aged Out No longer eligi ble based on patient's age to complete this topic HPV Vaccines Aged Out No longer eligi ble based on patient's age to complete this topic Hepatitis A Vaccines Aged Out No long er eligible based on patient's age to complete this topic Hepatitis B Vaccines Aged Out No long er eligible based on patient's age to complete this topic IPV Vaccines Aged Out No longer eligi ble based on patient's age to complete this topic MMR Vaccines Aged Out No longer eligi ble based on patient's age to complete this topic Meningococcal ACWY Vaccine Aged Out N o longer eligible based on patient's age to complete this topic Meningococcal B Vaccine Aged Out No l onger eligible based on patient's age to complete this topic RSV Immunization Patients Un deanna 20 months Aged Out No longer eligible b ased on patient's age to complete this topic Varicella Vaccines Aged Out No longer eligible based on patient's age to complete this topic Advance Directives Documents on File Type Date Recorded Patient Outside Deliverer Expl anation Health Care Decision (hx) 07/20/2021 AD KHLOE DIRECTIVE
== END 2025-01-11 18:20 | disposition home or self-care (01) ==
PROVIDERS: Physician Assistant; Emergency Provider Emergency Medicine Emergency Medical Services; PCP Family Medicine
DX: R60.0 Localized edema (principal); M79.605 Pain in left leg; G89.29 Other chronic pain; Z79.899 Other long term (current) drug therapy
CPT/HCPCS: 36415; 80048; 85025; 85652; 86140; 93971; 99281; 99284

== ENCOUNTER → 2025-01-11 13:31 | Outpatient (BNV) | payer MEDICARE, MEDICAID, SELFPAY | PROVIDERS: PCP Family Medicine; Visit Provider Radiology Diagnostic Radiology | DX: R22.42 Localized swelling, mass and lump, left lower limb (principal) | CPT/HCPCS: 93971 ==